=== PATIENT | male | born 1970 | race Caucasian/White ===

== ENCOUNTER 2016-04-22 00:04 | Inpatient (IN) | payer OTHER ==
--- NOTE | 2016-04-22 00:32 | ED ---
Skin/Abscess/FB HPI - General Source: patient, RN notes reviewed Mode of arrival: ambulatory Limitations: no limitations <Maty Alexandre - Last Filed: 04/22/16 03:46> <Tello Lo - Last Filed: 04/22/16 08:50> - General Chief complaint: Skin/Abscess/Foreign Body Stated complaint: wound on hand Time Seen by Provider: 04/22/16 00:12 - History of Present Illness Initial comments: Patient is a 45-year-old male presents emergency room for evaluation of right hand wound infection. Patient states about a month ago he received abrasions over his hand while working on a car. Patient states over the past month the sores were not healing and appeared to become infected. Patient states that he went to [facility] on April 19. Patient states he was given a dose of IV and antibiotic and was sent home with doxycycline. Patient states that he was unable to get his prescription filled and the infection has gotten worse. Patient denies punching anyone in the face. Patient denies numbness or tingling in his fingers. Patient does admit to having a history of diabetes. Patient denies any fevers or chills. Patient denies nausea or vomiting. (Maty Alexandre) - Related Data Home Medications Medication Instructions Recorded Confirmed Atorvastatin [Lipitor] 20 mg PO HS 09/11/15 04/22/16 Gabapentin [Neurontin] 400 mg PO TID 09/11/15 04/22/16 Lisinopril [Zestril] 10 mg PO DAILY 09/11/15 04/22/16 Glimepiride [Amaryl] 4 mg PO BID 04/22/16 04/22/16 Insulin Glargine [Lantus] 20 unit SQ HS 04/22/16 04/22/16 Metoclopramide HCl [Reglan] 5 mg PO TID PRN 04/22/16 04/22/16 Midodrine [ProAmatine] 5 mg PO TID 04/22/16 04/22/16 Omeprazole [PriLOSEC] 40 mg PO DAILY 04/22/16 04/22/16 Sertraline HCl [Sertraline HCl] 200 mg PO DAILY 04/22/16 04/22/16 Venlafaxine HCl [Venlafaxine HCl 150 mg PO -BRKFST 04/22/16 04/22/16 ER] oxyCODONE HCL/ACETAMINOPHEN 1 tab PO Q6HR PRN 04/22/16 04/22/16 [Percocet 7.5-325 mg] Allergies Allergy/AdvReac Type Severity Reaction Status Date / Time lactose AdvReac Diarrhea Verified 04/22/16 00:09 Review of Systems ROS Other: All systems not noted in ROS Statement are negative. <Maty Alexandre - Last Filed: 04/22/16 03:46> ROS Other: All systems not noted in ROS Statement are negative. <Tello Lo - Last Filed: 04/22/16 08:50> ROS Statement: Those systems with pertinent positive or pertinent negative responses have been documented in the HPI. (Maty Alexandre) (Tello Lo) Past Medical History Past Medical History: Diabetes Mellitus, Hypertension History of Any Multi-Drug Resistant Organisms: None Reported Past Surgical History: No Surgical Hx Reported Additional Past Surgical History / Comment(s): Colonscopy Past Psychological History: No Psychological Hx Reported Smoking Status: Never smoker Past Alcohol Use History: None Reported Past Drug Use History: None Reported - Past Family History Mother Family Medical History: Diabetes Mellitus <Maty Alexandre - Last Filed: 04/22/16 03:46> General Exam Limitations: no limitations General appearance: alert, in no apparent distress Head exam: Present: atraumatic, normocephalic, normal inspection Eye exam: Present: normal appearance ENT exam: Present: normal exam Neck exam: Present: normal inspection Respiratory exam: Present: normal lung sounds bilaterally. Absent: respiratory distress Cardiovascular Exam: Present: regular rate, normal rhythm, normal heart sounds Right Hand Wrist exam: Present: full ROM, tenderness, swelling. Absent: normal inspection (Sores of multiple sizes over the MCP joints 2 through 4 with some serous drainage. Surrounding swelling of digits, warmth and tenderness.) Neuro motor exam: Present: wrist extension intact, thumb opposition intact, thumb IP flexion intact, thumb adduction intact, fingers 2-5 abduction intact Vascular: Present: normal capillary refill (Capillary refill less than 2 seconds ), radial pulse (2+), ulnar pulse (2+) Back exam: Present: normal inspection Neurological exam: Present: alert, oriented X3, CN II-XII intact, normal gait Psychiatric exam: Present: normal affect, normal mood Skin exam: Present: warm, dry. Absent: rash <Maty Alexandre - Last Filed: 04/22/16 03:46> <Tello Lo - Last Filed: 04/22/16 08:50> - General Exam Comments Initial Comments: Sitting in exam room, no acute distress. (Maty Alexandre) Medical Decision Making - Lab Data Result diagrams: 04/22/16 00:35 04/22/16 00:35 - Radiology Data Radiology results: report reviewed, image reviewed <Maty Alexandre - Last Filed: 04/22/16 03:46> - Lab Data Result diagrams: 04/22/16 00:35 04/22/16 00:35 <Tello Lo - Last Filed: 04/22/16 08:50> - Medical Decision Making Patient is a 45-year-old male presents emergency room for evaluation infected hand wound. Labs show no concerning findings besides hyperglycemia. Patient given 6 units of insulin. Case discussed with Dr. Lo. Dr. Lo also evaluated patient. Patient will be started on IV antibiotics. Dr. Lo discussed case with Dr. Ch who agreed to admit patient. Plan discussed with patient. (Maty Alexandre) I saw this patient in conjunction with the physician ob gyn physician assistant. I performed independent history and physical exam. Agree with case management. (Tello Lo) - Lab Data Lab Results 04/22/16 04/22/16 Range/Units 00:35 00:35 WBC 6.6 (3.8-10.6) k/uL RBC 4.20 L (4.30-5.90) m/uL Hgb 11.0 L (13.0-17.5) gm/dL Hct 34.5 L (39.0-53.0) % MCV 82.3 (80.0-100.0) fL MCH 26.3 (25.0-35.0) pg MCHC 32.0 (31.0-37.0) g/dL RDW 13.3 (11.5-15.5) % Plt Count 233 (150-450) k/uL Neutrophils % 73 % Lymphocytes % 16 % Monocytes % 7 % Eosinophils % 3 % Basophils % 0 % Neutrophils # 4.8 (1.3-7.7) k/uL Lymphocytes # 1.1 (1.0-4.8) k/uL Monocytes # 0.4 (0-1.0) k/uL Eosinophils # 0.2 (0-0.7) k/uL Basophils # 0.0 (0-0.2) k/uL Sodium 139 (137-145) mmol/L Potassium 4.8 (3.5-5.1) mmol/L Chloride 98 (98-107) mmol/L Carbon Dioxide 27 (22-30) mmol/L Anion Gap 14 mmol/L BUN 22 H (9-20) mg/dL Creatinine 1.10 (0.66-1.25) mg/dL Est GFR (MDRD) Af Amer >60 (>60 ml/min/1.73 sqM) Est GFR (MDRD) Non-Af >60 (>60 ml/min/1.73 sqM) Glucose 419 H (74-99) mg/dL Calcium 9.4 (8.4-10.2) mg/dL Total Bilirubin 0.5 (0.2-1.3) mg/dL AST 15 L (17-59) U/L ALT 34 (21-72) U/L Alkaline Phosphatase 121 (38-126) U/L Total Protein 7.0 (6.3-8.2) g/dL Albumin 4.0 (3.5-5.0) g/dL (Tello Lo) Disposition Decision Date: 04/22/16 <Maty Alexandre - Last Filed: 04/22/16 03:46> <Tello Lo - Last Filed: 04/22/16 08:50> Clinical Impression: Infection of right hand Disposition: ADMITTED IP TO THIS HOSP Condition: Stable
[2016-04-22] MEDS ORDERED: SODIUM CHLORIDE 0.9% 1,000 ML IV ONE (00:45)
[2016-04-22] MEDS ORDERED: IV VANCOMYCIN PER PHARMACY 1 EACH MISC MISCELLANE PRN (00:46)
[2016-04-22 00:58] LABS: Basophils % (A) 0 %; CH 28.1; CHCM 34.4; Eosinophils # (A) 0.2 k/uL (0-0.7); Eosinophils % (A) 3 %; HCT 34.5 % (39.0-53.0); HDW 3.37; Luc # (Auto) 0.07; Luc % (Auto) 1; Lymphocytes # (A) 1.1 k/uL (1.0-4.8); Lymphocytes % (A) 16 %; MCH 26.3 pg (25.0-35.0); MCV 82.3 fL (80.0-100.0); Monocytes # (A) 0.4 k/uL (0-1.0); Monocytes % (A) 7 %; Neutrophils # (A) 4.8 k/uL (1.3-7.7); Neutrophils % (A) 73 %; RDW 13.3 % (11.5-15.5); WBC 6.6 k/uL (3.8-10.6)
--- NOTE | 2016-04-22 01:12 | XR ---
EXAMINATION TYPE: XR hand complete RT DATE OF EXAM: 04/22/2016 1:05 AM COMPARISON: NONE HISTORY: Pain TECHNIQUE: 3 views FINDINGS: I see no fracture nor dislocation. Joint spaces are normal. There is no sign of a foreign b veronica. There is mild soft tissue swelling around the second third and fourth PIP joints. IMPRESSION: Mild soft tissue swelling. No fracture. No evidence of osteomyelitis.
[2016-04-22 01:24] LABS: ALT 34 U/L (21-72); AST 15 U/L (17-59); Alkaline Phosphatase 121 U/L (38-126); Anion Gap 14 mmol/L; Blood Urea Nitrogen 22 mg/dL (9-20); Calcium 9.4 mg/dL (8.4-10.2); Carbon Dioxide 27 mmol/L (22-30); Chloride 98 mmol/L (98-107); Glucose 419 mg/dL (74-99); Non-African American GFR(MDRD) >60 (>60 ml/min/1.73 sqM); Potassium 4.8 mmol/L (3.5-5.1); Sodium 139 mmol/L (137-145); Total Bilirubin 0.5 mg/dL (0.2-1.3)
[2016-04-22] MEDS ORDERED: VANCOMYCIN 1,500 MG in SODIUM CHLORIDE 0.9% 250 ML IVPB STA (01:32)
[2016-04-22] MEDS ORDERED: ONDANSETRON 4 MG/2 ML VIAL IVP PRN (02:07)
[2016-04-22] MEDS ORDERED: IBUPROFEN 400 MG TAB PO PRN (02:07)
[2016-04-22] MEDS ORDERED: NALOXONE 0.4 MG/ML 1 ML VIAL IV PRN (02:07)
[2016-04-22] MEDS ORDERED: MORPHINE SULFATE 4 MG/ML SYRINGE IV PRN (02:07)
[2016-04-22] MEDS ORDERED: INSULIN LISPRO (humaLOG) 300 UNIT/3 ML VIAL SQ STA ×2 (02:24→02:35)
[2016-04-22 02:30] LABS: Glucose,Whole Blood 347 mg/dL (75-99)
[2016-04-22 03:22] VITALS: BMI 31.9
[2016-04-22] MEDS: SODIUM CHLORIDE 0.9% 1,000 ML IV SCH ×3 (03:50→21:45)
[2016-04-22 04:00] LABS: Glucose,Whole Blood 313 mg/dL (75-99)
[2016-04-22 07:41] LABS: Glucose,Whole Blood 306 mg/dL (75-99)
[2016-04-22] MEDS: LISINOPRIL 10 MG TAB PO SCH (07:45)
[2016-04-22] MEDS: GABAPENTIN 400 MG CAP PO SCH ×2 (07:45→19:46)
[2016-04-22] MEDS: INSULIN LISPRO (humaLOG) 300 UNIT/3 ML VIAL SQ SCH ×4 (07:47→20:02)
[2016-04-22] MEDS ORDERED: GABAPENTIN 100 MG CAP PO SCH (09:00)
[2016-04-22] MEDS ORDERED: METOCLOPRAMIDE 5 MG TAB PO PRN (09:48)
[2016-04-22] MEDS ORDERED: HYDROmorphone 1 MG/ML 1 ML SYRINGE IVP PRN ×2 (10:15)
[2016-04-22] MEDS: HYDROcodone/APAP 5-325MG 1 EACH TAB PO PRN (10:16)
--- NOTE | 2016-04-22 11:05 | P.HPOR ---
History of Present Illness H&P Date: 04/22/16 Chief Complaint: Right hand pain, infection Patient is a 45-year-old male seen at bedside today who was admitted last evening after having continued pain, redness, swelling in his right hand. He states that approximately 1 month ago he injured his right hand while working on his 's car. He's had abrasions/lacerations at the dorsum of his hand that have progressively worsened with redness, swelling and pain. He presented to [facility] last 04/19/2016 where he was discharged on oral antibiotics. He states he did not take his oral antibiotics over the weekend. He presented to [facility] last evening and was admitted for IV antibiotics and orthopedic surgical intervention possibly. He' s currently denying fever or chills. He continues to have pain at the dorsum of his right hand. He has pain with closing his hand and opening his hand fully. He denies wrist pain, forearm pain or other proximal upper extremity symptoms. He has been a diabetic for 20 years and has had chronic peripheral neuropathy. He denies any new numbness or tingling. He has no other complaints. Review of systems is negative for fever, chills, chest pain, shortness breath, nausea, vomiting, dizziness, headaches, rashes, slurred speech or other. Review of Systems All systems: negative Constitutional: Denies chills, Denies fever Eyes: denies blurred vision, denies pain Ears, nose, mouth and throat: Denies headache, Denies sore throat Cardiovascular: Denies chest pain, Denies shortness of breath Respiratory: Denies cough Gastrointestinal: Denies abdominal pain, Denies diarrhea, Denies nausea, Denies vomiting Musculoskeletal: Denies myalgias Musculoskeletal: right: hip pain Integumentary: Denies pruritus, Denies rash Neurological: Denies numbness, Denies weakness Psychiatric: Denies anxiety, Denies depression Endocrine: Denies fatigue, Denies weight change Past Medical History Past Medical History: Diabetes Mellitus, Hypertension Additional Past Medical History / Comment(s): neuropathy History of Any Multi-Drug Resistant Organisms: None Reported Past Surgical History: No Surgical Hx Reported Additional Past Surgical History / Comment(s): Colonscopy Past Psychological History: No Psychological Hx Reported Smoking Status: Never smoker Past Alcohol Use History: None Reported Past Drug Use History: None Reported - Past Family History Mother Family Medical History: Diabetes Mellitus Medications and Allergies Home Medications Medication Instructions Recorded Confirmed Type Atorvastatin [Lipitor] 20 mg PO HS 09/11/15 04/22/16 History Amitriptyline HCl [Elavil] 10 mg PO DAILY 04/22/16 04/22/16 History Gabapentin [Neurontin] 400 mg PO TID 04/22/16 04/22/16 History Glimepiride [Amaryl] 4 mg PO BID 04/22/16 04/22/16 History Insulin Glargine [Lantus] 20 unit SQ HS 04/22/16 04/22/16 History Metoclopramide HCl [Reglan] 5 mg PO TID PRN 04/22/16 04/22/16 History Midodrine [ProAmatine] 5 mg PO TID 04/22/16 04/22/16 History Omeprazole [PriLOSEC] 40 mg PO DAILY 04/22/16 04/22/16 History Sertraline HCl [Sertraline HCl] 200 mg PO DAILY 04/22/16 04/22/16 History Venlafaxine HCl [Venlafaxine HCl 150 mg PO AC-BRKFST 04/22/16 04/22/16 History ER] Allergies Allergy/AdvReac Type Severity Reaction Status Date / Time lactose AdvReac Diarrhea Verified 04/22/16 00:09 Physical Examination Inspection of the right hand and upper extremity reveals multiple deep abrasions across the dorsum of the digits and hand. There is significant erythema and edema mostly at the proximal second, third and fourth digits. There is blistering on the dorsum of the second digit. There is no active bleeding or drainage. Full extension of all the digits is limited due to pain. Flexion of the digits is also limited due to pain. There is no pain or decreased range of motion with the wrist where he is able to flex and extend and deviate without difficulty. Normal exam furthermore with the proximal right upper extremity. He has sensation to touch throughout all digits. There is less than 2 second cap refill distally in all digits. There is a 2+ radial pulse. Results - Labs Labs: Abnormal Lab Results - Last 24 Hours (Table) 04/22/16 04/22/16 04/22/16 Range/Units 02:27 03:48 07:38 POC Glucose (mg/dL) 347 H 313 H 306 H (75-99) mg/dL Result Diagrams: 04/22/16 00:35 04/22/16 00:35 - Diagnostic results Wrist/Hand x-ray: report reviewed, image reviewed (No evidence of osteomyelitis or gas formation. No fractures or dislocations.) Assessment and Plan (1) Infection of right hand Narrative/Plan: This patient has been reviewed with Dr. Ch. He has recommended proceeding with surgical I&D. He ate breakfast this morning and will try to perform later this afternoon or tomorrow. It'll be I&D the dorsum of the right hand with local anesthetic and sedation. He'll continue on IV antibiotics. He has been placed nothing by mouth. Internal medicine has seen him and cleared him for surgery. Continue elevation and pain management as well. He'll participate in whirlpool therapy after I&D. Status: Acute Time with Patient: Less than 30
[2016-04-22 11:36] LABS: Glucose,Whole Blood 368 mg/dL (75-99)
[2016-04-22] MEDS: HYDROmorphone 1 MG/ML 1 ML SYRINGE IVP PRN ×3 (12:32→22:12)
[2016-04-22 12:40] LABS: Hemoglobin A1C 8.6 % (4.2-6.1)
[2016-04-22] MEDS: VANCOMYCIN 1,500 MG in SODIUM CHLORIDE 0.9% 250 ML IVPB SCH (14:29)
[2016-04-22] MEDS ORDERED: MIDODRINE 5 MG TAB PO SCH (16:00)
[2016-04-22 16:25] LABS: Glucose,Whole Blood 230 mg/dL (75-99)
[2016-04-22] MEDS ORDERED: IV FLUID CONTINUATION 1,000 ML IV ONE ×2 (16:26)
[2016-04-22] MEDS ORDERED: ceFAZolin 1,000 MG in SODIUM CHLORIDE 0.9% 1,000 ML IRRIGATION ONE ×4 (16:26)
[2016-04-22 17:54] LABS: Glucose,Whole Blood 188 mg/dL (75-99)
[2016-04-22] MEDS ORDERED: SODIUM CHLORIDE 0.9% 500 ML BAG ONE (18:12)
[2016-04-22] MEDS ORDERED: LIDOCAINE 1% INJ 10MG/ML (20 ML MDV) ONE (18:12)
[2016-04-22] MEDS ORDERED: ceFAZolin 1,000 MG VIAL ONE (18:12)
[2016-04-22] MEDS ORDERED: fentaNYL (PF) 50 MCG/ML 2 ML AMP ONE (18:12)
[2016-04-22] MEDS ORDERED: MIDAZOLAM 2 MG/2 ML VIAL ONE (18:12)
[2016-04-22] MEDS ORDERED: PROPOFOL 10 MG/ML 20 ML VIAL IV ONE (18:12)
[2016-04-22] MEDS ORDERED: SODIUM CHLORIDE 0.9% 1,000 ML BAG ONE (18:12)
[2016-04-22] MEDS ORDERED: LIDOCAINE 2% INJ 20 MG/ML SQ ONE ×2 (18:22)
[2016-04-22] MEDS ORDERED: SODIUM CHLORIDE 0.9% 500 ML IV ONE (18:30)
[2016-04-22] MEDS: HYDROmorphone 1 MG/ML 1 ML SYRINGE IVP ONE ×2 (18:44→18:51)
[2016-04-22] MEDS: ATORVASTATIN 20 MG TAB PO SCH (19:46)
[2016-04-22 19:49] LABS: Glucose,Whole Blood 159 mg/dL (75-99)
[2016-04-22] MEDS: GLIMEPIRIDE 4 MG TAB PO SCH (19:50)
[2016-04-22] MEDS: INSULIN GLARGINE 100 UNIT/ML 10 ML VIAL SQ SCH (20:02)
--- NOTE | 2016-04-22 20:53 | CONS ---
DATE OF CONSULTATION: Kimber Wheeler [employer] [facility] dictating for Dr. Reanna Alanis. PRINCIPAL DIAGNOSIS: Right hand infection. HISTORY OF PRESENT ILLNESS: This is a 45-year-old male patient who presented to the emergency department secondary to right hand swelling and pain. The patient states approximately a month ago he injured both of his hands while he was fixing his 's car. He is diabetic and the source appeared to become infected. He originally went to [facility] and was given IV antibiotics and sent home on doxycycline, but was unable to get this prescription filled; therefore he did not take any antibiotics. He is seen sitting up in bed. His pain is under good control. He has been afebrile overnight. He denies any fever or chills at home. He is currently on IV vancomycin. Awaiting orthopedic service evaluation for possible surgery. He is hemodynamically stable. REVIEW OF SYSTEMS: Patient denies seizures, syncope, or loss of consciousness. Denies diplopia or visual disturbances. Denies dysphagia. Denies shortness breath, cough or wheeze. Denies chest pain, angina, palpitations. Denies abdominal pain, nausea, vomiting, constipation, or diarrhea. Denies dysuria or urinary retention. Denies fever or chills. PAST MEDICAL HISTORY: Diabetes, hypotension, peripheral neuropathy, hyperlipidemia, depression, chronic anemia. PAST SURGICAL HISTORY: Colonoscopy. FAMILY HISTORY: Parents of patient are both living, one with hypertension and diabetes. SOCIAL HISTORY: The patient is a nonsmoker. Denies EtOH or illicit drug use. ALLERGIES: LACTOSE INTOLERANCE. HOME MEDICATIONS: 1. Sertraline 200 mg daily. 2. Prilosec 40 mg daily. 3. Midodrine 5 mg t.i.d. 4. Reglan 5 mg t.i.d. p.r.n. 5. Lantus 20 units at bedtime. 6. Amaryl 4 mg b.i.d. 7. Neurontin 400 mg t.i.d. 8. Lipitor 20 mg at bedtime. 9. Elavil 10 mg daily. 10. Effexor 150 mg a.c. breakfast. PHYSICAL EXAMINATION: Temperature is 97.6, heart rate 84, respiratory 16, blood pressure is 145/84, pulse oximetry is 94% on room air. GENERAL: The patient is seen sitting up in bed in no acute distress. HEENT: Head is normocephalic, atraumatic. Pupils equal. Conjunctivae clear. NECK: Supple, no JVD. LUNGS: Clear to auscultation. No wheeze, rales, rhonchi appreciated. HEART: Regular rate and rhythm. No murmur. ABDOMEN: Soft, nontender, nondistended. Bowel sounds positive. EXTREMITIES: Right hand 2+ edema with multiple sores and pustules is noted. Right radial pulse is palpable. Left hand without edema but 3 sores that are scabbed over. Left radial pulse is palpable. No lower extremity edema is noted. Pedal pulses are palpable. NEUROLOGICAL: The patient is alert and oriented x3. Speech is clear, interactive and appropriate. No tremors noted. LABS: Sodium is 139, potassium 4.8, BUN is 22, creatinine is 1.10. WBC count 6.6, hemoglobin is 11.0, platelet count is 233. Capillary blood glucose is 306. DIAGNOSTIC TESTS: Hand x-ray shows mild soft tissue swelling. No fracture. No evidence of osteomyelitis. IMPRESSION: 1. Right hand infection with abscess formation. Orthopedic Service is planning on incision and drainage this morning. Will obtain deep cultures at that time. Continue with vancomycin; pharmacy to dose. Infectious Disease consultation has been placed. Continue with [place] and Dilaudid as needed for pain control. 2. Diabetes, uncontrolled. The patient is unaware what his hemoglobin A1c is although he states it is probably high. He states he has been taking his medication at home. Will continue with Amaryl and Lantus and Accu-Cheks a.c. and at bedtime with sliding scale coverage. We will hold the Amaryl this morning prior to surgery. 3. Hypotension. Continue with midodrine t.i.d. We will decrease lisinopril to 2.5 mg. Unsure of why he is on that high of a dose. 4. Chronic anemia. The patient has had normal colonoscopy in the past and states that he has been told he has chronic anemia. 5. Hyperlipidemia. Continue with atorvastatin. 6. Depression. Continue with sertraline and Elavil. The patient states he is not taking Effexor anymore. This has been discontinued. 7. Gastrointestinal prophylaxis with Protonix. 8. Deep venous thrombosis prophylaxis with subcutaneous heparin. 9. The patient will be admitted to inpatient status with probable 2 to 3 night today.
[2016-04-23] MEDS: GABAPENTIN 400 MG CAP PO SCH ×4 (00:55→19:42)
[2016-04-23] MEDS: HYDROmorphone 1 MG/ML 1 ML SYRINGE IVP PRN (00:55)
[2016-04-23] MEDS: VANCOMYCIN 1,500 MG in SODIUM CHLORIDE 0.9% 250 ML IVPB SCH ×2 (00:56→12:53)
[2016-04-23 02:42] VITALS: RESP 16
[2016-04-23] MEDS: LISINOPRIL 10 MG TAB PO SCH (07:06)
[2016-04-23] MEDS: GLIMEPIRIDE 4 MG TAB PO SCH ×2 (07:07→17:48)
[2016-04-23 07:13] LABS: Glucose,Whole Blood 184 mg/dL (75-99)
[2016-04-23] MEDS: INSULIN LISPRO (humaLOG) 300 UNIT/3 ML VIAL SQ SCH ×4 (07:15→21:04)
[2016-04-23 07:56] LABS: Basophils % (A) 1 %; CH 27.4; CHCM 34.1; Eosinophils # (A) 0.3 k/uL (0-0.7); Eosinophils % (A) 5 %; HCT 30.5 % (39.0-53.0); HDW 3.51; Luc # (Auto) 0.11; Luc % (Auto) 2; Lymphocytes # (A) 0.9 k/uL (1.0-4.8); Lymphocytes % (A) 17 %; MCH 26.5 pg (25.0-35.0); MCHC 32.7 g/dL (31.0-37.0); MCV 80.9 fL (80.0-100.0); Mean Platelet Volume 7.3; Monocytes # (A) 0.3 k/uL (0-1.0); Monocytes % (A) 7 %; Neutrophils # (A) 3.5 k/uL (1.3-7.7); Neutrophils % (A) 69 %; Poikilocytosis Slight; RBC 3.77 m/uL (4.30-5.90); WBC 5.1 k/uL (3.8-10.6); WBC (Perox) 5.34
--- NOTE | 2016-04-23 07:57 | CONS ---
DATE OF CONSULTATION: 04/22/2016 Reason for consultation is right hand abscess and cellulitis. HISTORY OF PRESENT ILLNESS: The patient is a 45-year-old male presenting to the ER with chief complaints of pain, swelling and redness to the dorsum of his right hand that has been going on for more than a week now and the patient has been evaluated for the same problem at [facility] on April 19 where the patient was given IV antibiotics and was discharged home on doxycycline. The pharmacy was unable to fill his prescription as they were out of stock. The patient is now presenting with more swelling and redness of the dorsum of his right hand. The patient has been complaining of some throbbing pain 6-10/28. Patient did have some drainage from it but denies any high-grade fever. Subsequently, the patient has been evaluated by the ER physician. The patient did have x-rays of his right hand which shows mild soft tissue swelling. No fracture or evidence of osteomyelitis. Has been evaluated by Orthopedic who is planning for an I&D this evening. The patient did have blood culture which his currently pending, no local cultures; however, I was asked to see the patient for further recommendation regarding antibiotic therapy. Patient currently being on vancomycin. REVIEW OF SYSTEMS: CONSTITUTIONAL: Positive for weakness. No high-grade fever. EYES: No complaint. ENT: No complaint. RESPIRATORY: No complaint. CARDIOVASCULAR: No complaint. GENITOURINARY: No complaint. GASTROINTESTINAL: No complaint. MUSCULOSKELETAL: As per HPI. INTEGUMENT: As per HPI. PSYCHOLOGICAL: No complaint. ENDOCRINE: No complaint. NEUROLOGICAL: No complaint. PAST MEDICAL HISTORY: Hypertension, diabetes mellitus. PAST SURGICAL HISTORY: Colonoscopy. SOCIAL HISTORY: No history of smoking, drinking or drug use. FAMILY HISTORY: Mother with history of diabetes mellitus. Allergies to LACTOSE: Medications currently include the patient is on [place], Lipitor, Neurontin, Amaryl, Dilaudid, Motrin, Lantus, Humalog, Zestril, Reglan, vancomycin currently 1500 q.12 so far. On examination, blood pressure is 140/84 with a pulse of 82, temperature 97.2, temperature is 97.2, he is 91% on room air. General description is a middle-age male, lying in bed in no distress. No tachypnea or accessory muscle for respiration use. HEENT examination shows no pallor or scleral icterus. Oral mucous membrane dry. NECK: Trachea central. There is no thyromegaly. LUNGS: Unlabored breathing. Clear to auscultation anteriorly. No wheeze or crackle. HEART: S1, S2 with regular rate and rhythm. ABDOMEN: Soft, nontender. EXTREMITIES: No edema of the feet. Examination of left hand, dorsum, full examination of right hand on the dorsum, he did have swelling and redness with a blister on the dorsum of his second finger, no purulent drainage was noticed or any fluctuation. NEUROLOGICAL: Patient awake, alert, oriented x3. Mood and affect normal. LABS: Hemoglobin is 11, white count 6.6 with a BUN of 22, creatinine 1.10. Electrolyte has been normal. Liver enzymes are normal, blood culture obtained and currently pending. DIAGNOSTIC IMPRESSION AND PLAN: Patient with right hand cellulitis, started after the patient was working on his 's car with some laceration, more likely from a gram positive skin lisa, especially strep and staph, will need to cover for MRSA until the cultures are finalized. PLAN: 1. Await the surgical I&D and deep cultures which should be sent for both gram stain as well as culture. 2. Vancomycin, pharmacy to dose with a target trough of 15. 3. Will follow up with clinical condition and cultures to further adjust the medication if needed. Thank you for this consultation. Will follow this patient along with you. DESIREE
[2016-04-23 08:22] LABS: ALT 31 U/L (21-72); AST 14 U/L (17-59); Alkaline Phosphatase 113 U/L (38-126); Anion Gap 11 mmol/L; Blood Urea Nitrogen 17 mg/dL (9-20); Calcium 8.8 mg/dL (8.4-10.2); Carbon Dioxide 28 mmol/L (22-30); Chloride 104 mmol/L (98-107); Glucose 207 mg/dL (74-99); Non-African American GFR(MDRD) >60 (>60 ml/min/1.73 sqM); Potassium 4.7 mmol/L (3.5-5.1); Sodium 143 mmol/L (137-145); Total Bilirubin 0.3 mg/dL (0.2-1.3); Total Protein 6.5 g/dL (6.3-8.2)
[2016-04-23] MEDS: HYDROcodone/APAP 5-325MG 1 EACH TAB PO PRN ×2 (08:24→12:50)
[2016-04-23] MEDS ORDERED: AMITRIPTYLINE HCL 10 MG TAB PO SCH (09:00)
--- NOTE | 2016-04-23 09:17 | P.PN ---
Subjective Principal diagnosis: Right hand infection Patient is postop day #1 from I&D of right hand infection. He has no new complaints today. He has pain at the surgical site and right hand as expected. He's currently denying fever, chills, numbness or tingling. Review of systems negative for chest pain, shortness breath, calf pain, dizziness, headaches, slurred speech or other. Objective - Vital Signs Vital signs: Vital Signs Temp 97.7 F 04/23/16 07:25 Pulse 83 04/23/16 07:25 Resp 16 04/23/16 07:25 BP 159/104 04/23/16 07:25 Pulse Ox 97 04/23/16 07:25 Intake & Output 04/22/16 04/23/16 04/23/16 18:59 06:59 18:59 Intake Total 1051 300 360 Output Total 10 Balance 1041 300 360 Intake: IV 1051 300 Sodium Chloride 0.9% 1, 600 300 000 ml @ 75 mls/hr IV . [id number] KERVIN Rx#:[id number] Oral 360 Output: Estimated Blood Loss 10 Other: # Voids 1 - Exam Inspection of the right upper extremity reveals postop surgical bandage in place. There is no progressive erythema. No active bleeding bleeding or purulent drainage. Painless range of motion of the wrist, elbow and proximal upper extremity. Motor and sensation intact throughout the right upper extremity. 2+ radial pulse present and less than 2 second cap refill. - Constitutional General appearance: Present: no acute distress - Psychiatric Psychiatric: Present: A&O x's 3, appropriate affect, intact judgment & insight - Labs CBC & Chem 7: 04/23/16 07:21 04/23/16 07:18 Labs: Abnormal Lab Results - Last 24 Hours (Table) 04/22/16 04/22/16 04/22/16 Range/Units 11:31 16:24 17:51 RBC (4.30-5.90) m/uL Hgb (13.0-17.5) gm/dL Hct (39.0-53.0) % Lymphocytes # (1.0-4.8) k/uL Glucose (74-99) mg/dL POC Glucose (mg/dL) 368 H 230 H 188 H (75-99) mg/dL AST (17-59) U/L Albumin (3.5-5.0) g/dL 04/22/16 04/23/16 04/23/16 Range/Units 19:47 07:12 07:18 RBC (4.30-5.90) m/uL Hgb (13.0-17.5) gm/dL Hct (39.0-53.0) % Lymphocytes # (1.0-4.8) k/uL Glucose 207 H (74-99) mg/dL POC Glucose (mg/dL) 159 H 184 H (75-99) mg/dL AST 14 L (17-59) U/L Albumin 3.4 L (3.5-5.0) g/dL 04/23/16 Range/Units 07:21 RBC 3.77 L (4.30-5.90) m/uL Hgb 10.0 L (13.0-17.5) gm/dL Hct 30.5 L (39.0-53.0) % Lymphocytes # 0.9 L (1.0-4.8) k/uL Glucose (74-99) mg/dL POC Glucose (mg/dL) (75-99) mg/dL AST (17-59) U/L Albumin (3.5-5.0) g/dL Microbiology - Last 24 Hours (Table) 04/22/16 18:24 Gram Stain - Preliminary Hand - Right Wound Culture - Preliminary 04/22/16 18:24 Anaerobic Culture - Preliminary Hand - Right Assessment and Plan (1) Infection of right hand Narrative/Plan: He's postop day 1 from I&D of the right hand. He'll continue with wound care, pain management, elevation of the right upper extremity and IV antibiotics. Order also been placed for daily whirlpool treatments. We'll continue to monitor. Status: Acute Time with Patient: Less than 30
[2016-04-23 11:35] LABS: Glucose,Whole Blood 308 mg/dL (75-99)
[2016-04-23] MEDS ORDERED: VANCOMYCIN TROUGH DUE 1 EACH MISC MISCELLANE ONE (13:00)
--- NOTE | 2016-04-23 13:04 | OP ---
DATE OF SERVICE: April 22, 2016. SURGEON: LEXI YOO MD HEARING CARE PRACTITIONER: PREOPERATIVE DIAGNOSIS: Right dorsal hand infection. POSTOPERATIVE DIAGNOSIS: Dorsal hand infection, deep abscess dorsum of right hand. OPERATION: Incision and drainage, right the dorsal hand abscess. ANESTHESIA: Conscious sedation with local. SPECIMENS REMOVED: COMPLICATIONS: ESTIMATED BLOOD LOSS: 5 mL. Tourniquet: None. DRAINS: None. Complications: None apparent. DISPOSITION: Postanesthesia care unit. INDICATIONS: Ravinder is a 45-year-old male who fell onto his right hand several days ago. Apparently on April 19, he presented to an outside emergency department. He had worrisome for infection. Apparently he was given a dose of IV antibiotics and script for oral antibiotics. He admittedly did not fill the script for oral antibiotics. His hand infection seemed to be worsening and he presented to [facility] early in the morning today with worsening of his right hand infection. He was admitted to the floor. He was placed on IV vancomycin. He did have a subcutaneous abscess in the dorsum of his right hand. Recommendation was for incision and drainage of his dorsal hand infection. The risks were explained to the patient. These risks include, but are not limited to risk of continued infection, nerve damage, bleeding, pain, stiffness in the hand. All of his questions with regards to the risks were answered to his satisfaction and appropriate informed consent was obtained. DESCRIPTION OF THE PROCEDURE: The patient was identified in the preoperative holding area. Surgical site was marked by both patient and myself. He was then transferred to the operative suite and was placed supine on the operating room table. Conscious sedation was then administered and dosed by the anesthesia department without apparent complication. Patient's right upper extremity was then prepped and draped in the usual sterile fashion. Standard surgical pause was then undertaken to ensure that we were operating on the correct site and that all staff in the room were in agreement and we proceeded. Right hand was placed out onto the hand table. On inspection he did have scrapes just over the MCP joints of the index, middle and ring finger. Deep infection was just proximal to the MCP joint of the right index finger just distal to the MCP joint of the right ring finger. Attention was first drawn to the index finger, the overlying tissue over the abscess was incised with 15 blade scalpel. The incision was 5 mm. Immediately purulent material was expressed through the incision. Deep culture was then taken and sent for analysis. Hemostat was then utilized to bluntly dissect and break up all of the abscess. Attention was turned to the abscess on the dorsum of the ring finger. Again, the skin just over the overlying the abscess was incised with a 15 blade scalpel. Again, purulent material was immediately encountered. Blunt dissection was then carried out with hemostat. Both wounds were then thoroughly irrigated with sterile saline solution with antibiotic added. The abscess was completely drained. I then placed iodoform gauze in both incisions. This was packed to keep the space opened. Sterile dressings were then applied. All sponge and needle counts were deemed correct prior to closure. Patient tolerated the procedure without apparent complication. He was transferred to recovery room in stable condition. Postoperative plan: Will be for him to be readmitted to the floor. We will monitor the cultures. Continue with vancomycin. We will start him on whirlpool therapy tomorrow morning.
[2016-04-23 16:55] LABS: Glucose,Whole Blood 271 mg/dL (75-99)
[2016-04-23] MEDS: ATORVASTATIN 20 MG TAB PO SCH (19:42)
[2016-04-23] MEDS: INSULIN GLARGINE 100 UNIT/ML 10 ML VIAL SQ SCH (21:04)
[2016-04-23 21:06] LABS: Glucose,Whole Blood 259 mg/dL (75-99)
[2016-04-23] MEDS: SODIUM CHLORIDE 0.9% 1,000 ML IV SCH (22:16)
--- NOTE | 2016-04-23 23:45 | PN ---
DATE OF SERVICE: 04/23/2016 REASON FOR FOLLOWUP: Right hand abscess and cellulitis. INTERVAL HISTORY: The patient is afebrile. The patient is status post I&D of his right hand abscess by Orthopedics. The patient denies any worsening pain in the right hand area. The patient denies having any chest pain or shortness of breath or cough. No abdominal pain or diarrhea. On examination, blood pressure is 116/73 with a pulse of 85, temperature 98.1. He is 95% on room air. General description is a middle-aged male lying in bed in no distress. RESPIRATORY SYSTEM: Unlabored breathing. Clear to auscultation anteriorly. HEART: S1, S2. Regular rate and rhythm. ABDOMEN: Soft. No tenderness. Right hand dorsum overall swelling and redness have improved. Wound was packed. No drainage. LABS: Hemoglobin is 10, white count 5.1. BUN of 17, creatinine 0.93. Cultures are currently pending. DIAGNOSTIC IMPRESSION AND PLAN: Patient with right hand abscess, status post drainage. Culture is positive for Gram-positive cocci, more likely Staphylococcus aureus. Will wait for the culture to finalize to determine the best treatment or discharge antibiotic for him. Continue local wound care as ordered. Plan of care discussed with the medical team.
[2016-04-24] MEDS: VANCOMYCIN 1,500 MG in SODIUM CHLORIDE 0.9% 250 ML IVPB SCH ×2 (00:55→14:48)
[2016-04-24 06:56] LABS: Glucose,Whole Blood 392 mg/dL (75-99)
[2016-04-24] MEDS: INSULIN LISPRO (humaLOG) 300 UNIT/3 ML VIAL SQ SCH ×4 (07:36→21:42)
[2016-04-24] MEDS: GLIMEPIRIDE 4 MG TAB PO SCH ×2 (07:37→18:02)
--- NOTE | 2016-04-24 07:57 | PN ---
INTERVAL HISTORY: Patient underwent I&D this morning by Surgery, currently seems to be improved. Hand is wrapped without any ( ) drainage. Patient states the pain is under control. Patient denies chest pain, shortness of breath, vomiting, abdominal pain. Denies any blurred vision. PHYSICAL EXAMINATION: VITAL SIGNS: Reviewed and stable. HEART: Normal S1, S2. ABDOMEN: Soft, no tenderness, bowel sounds to all four quadrants. LOWER EXTREMITY: No edema. SKIN: No new rash. Right hand as above. IMAGING AND LABS: Reviewed and stable. ASSESSMENT AND PLAN: 1. Right hand cellulitis with abscess formation, post I&D. Will continue IV antibiotics. Will continue wound care. Will follow up on the culture results and on the surgical consult. We will follow up with Surgery recommendation regarding possible need of another wash and another evaluation. 2. Tobacco dependency, counseled patient regarding smoking cessation. 3. Elevated blood pressure, will continue monitoring and consider adjusting blood pressure regimen based on the reading. 4. Discharge planning based on clinical progress.
--- NOTE | 2016-04-24 08:59 | P.PN ---
Subjective Principal diagnosis: Right hand infection Patient is postop day #2 from I&D of right hand infection. He has no new complaints today. He has pain at the surgical site and right hand as expected but it is improved. He's currently denying fever, chills, numbness or tingling. Review of systems negative for chest pain, shortness breath, calf pain, dizziness, headaches, slurred speech or other. Objective - Vital Signs Vital signs: Vital Signs Temp 98.3 F 04/24/16 03:37 Pulse 74 04/24/16 07:32 Resp 16 04/24/16 07:32 BP 136/79 04/24/16 07:32 Pulse Ox 91 L 04/24/16 07:32 Intake & Output 04/23/16 04/24/16 04/24/16 18:59 06:59 18:59 Intake Total 960 1325 Balance 960 1325 Weight 95.254 kg Intake: IV 675 Sodium Chloride 0.9% 1, 675 000 ml @ 75 mls/hr IV . [id number] [facility] Rx#:[id number] Intake, IV Titration 250 Amount Vancomycin 1,500 mg In 250 Sodium Chloride 0.9% 250 ml @ 125 mls/hr IVPB Q12H [facility] Rx#:[id number] Oral 960 400 Other: Voiding Method Toilet # Voids 1 2 - Exam Inspection of the right upper extremity reveals postop surgical bandage in place. Bandage taken down and there is packing in place at the dorsum of the second through fourth digits. Erythema and edema is improved versus preop. No active bleeding bleeding or purulent drainage. Painless range of motion of the wrist, elbow and proximal upper extremity. Motor and sensation intact throughout the right upper extremity. 2+ radial pulse present and less than 2 second cap refill. - Constitutional General appearance: Present: no acute distress - Psychiatric Psychiatric: Present: A&O x's 3, appropriate affect, intact judgment & insight - Labs CBC & Chem 7: 04/23/16 07:21 04/23/16 07:18 Labs: Abnormal Lab Results - Last 24 Hours (Table) 04/23/16 04/23/16 04/23/16 Range/Units 11:33 16:50 20:55 POC Glucose (mg/dL) 308 H 271 H 259 H (75-99) mg/dL 04/24/16 Range/Units 06:54 POC Glucose (mg/dL) 392 H (75-99) mg/dL Microbiology - Last 24 Hours (Table) 04/22/16 18:24 Gram Stain - Preliminary Hand - Right Wound Culture - Preliminary Presumptive MRSA Assessment and Plan (1) Infection of right hand Narrative/Plan: He's postop day 2 from I&D of the right hand. He'll continue with wound care, whirlpool treatment for hand, pain management, elevation of the right upper extremity and IV antibiotics. We'll continue to monitor. Possibly discharge home tomorrow. Status: Acute Time with Patient: Less than 30
[2016-04-24] MEDS: LISINOPRIL 10 MG TAB PO SCH (09:28)
[2016-04-24] MEDS: GABAPENTIN 400 MG CAP PO SCH ×3 (09:28→21:42)
[2016-04-24] MEDS: HYDROcodone/APAP 5-325MG 1 EACH TAB PO PRN ×2 (09:37→14:42)
[2016-04-24 11:06] LABS: Glucose,Whole Blood 242 mg/dL (75-99)
[2016-04-24 14:53] LABS: Glucose,Whole Blood 287 mg/dL (75-99)
[2016-04-24 17:01] LABS: Glucose,Whole Blood 260 mg/dL (75-99)
--- NOTE | 2016-04-24 19:12 | PN ---
DATE OF SERVICE: 04/24/2016 Reason for follow-up is right hand abscess and cellulitis. INTERVAL HISTORY: The patient is afebrile. Overall pain to the right hand is currently controlled. He did not go for the walk with therapy today. The patient denies having any chest pain or shortness of breath or cough. No abdominal pain or any diarrhea. On examination, blood pressure is 136/79 with a pulse of 74, temperature 97.5. He is 91% on room air. General description is a middle-aged male lying in bed in no distress. RESPIRATORY SYSTEM: Unlabored breathing. Clear to auscultation anteriorly. HEART: S1, S2 with regular rate and rhythm. ABDOMEN: Soft, no tenderness. Right hand now dressed up, no drainage on the dressing. LABS: Hemoglobin is 10, white count 5.1 as of yesterday, BUN of 17, creatinine 0.93, Vanco level is therapeutic. Wound culture showing a staph presumably MRSA. DIAGNOSTIC IMPRESSION AND PLAN: Patient with right hand methicillin-resistant Staphylococcus aureus abscess, status post drainage. Patient to continue with vancomycin for another 24 hours while waiting for the sensitivity on this methicillin-resistant Staphylococcus aureus to determine discharge antibiotics. Continue supportive care.
[2016-04-24 20:41] LABS: Glucose,Whole Blood 149 mg/dL (75-99)
[2016-04-24] MEDS: INSULIN GLARGINE 100 UNIT/ML 10 ML VIAL SQ SCH (21:42)
[2016-04-24] MEDS: ATORVASTATIN 20 MG TAB PO SCH (21:42)
--- NOTE | 2016-04-24 21:48 | PN ---
INTERVAL HISTORY: The patient continued to be ( ). Overnight, no major events reported by nursing staff. The patient was very emotional and frustrated that his early wound culture is showing MRSA infection. PHYSICAL EXAMINATION: VITAL SIGNS: Reviewed. LUNGS: Clear to auscultation bilaterally. HEART: S1 and S2. ABDOMEN: Soft. No tenderness. Bowel sounds in all 4 quadrants. RIGHT HAND: Dressing applied, intact and dry. SKIN: No new rash. PSYCH: Alert and oriented x3. NEURO: No focal deficit. IMAGING AND LABS: Culture is showing presumptive MRSA infection. ASSESSMENT AND PLAN: 1. Right hand cellulitis, status post I and D. Surgery evaluated the patient, recommended continuation of IV antibiotics until the final culture result is revealed. Will continue with wound care, continue with antibiotics, continue monitoring his electrolyte panel and CBC on periodic basis. ( ) isolation for methicillin-resistant Staphylococcus aureus infection discussed with the nursing staff. 2. Tobacco dependency. Counseled the patient regarding smoking cessation. 3. Discharge planning based on clinical progress.
[2016-04-24] MEDS: SODIUM CHLORIDE 0.9% 1,000 ML IV SCH ×2 (21:54→21:57)
[2016-04-25] MEDS: VANCOMYCIN 1,500 MG in SODIUM CHLORIDE 0.9% 250 ML IVPB SCH (01:14)
[2016-04-25 07:09] LABS: Glucose,Whole Blood 166 mg/dL (75-99)
[2016-04-25 07:37] LABS: Anion Gap 11 mmol/L; Blood Urea Nitrogen 17 mg/dL (9-20); Calcium 8.8 mg/dL (8.4-10.2); Carbon Dioxide 31 mmol/L (22-30); Chloride 103 mmol/L (98-107); Glucose 181 mg/dL (74-99); Non-African American GFR(MDRD) >60 (>60 ml/min/1.73 sqM); Potassium 4.2 mmol/L (3.5-5.1); Sodium 145 mmol/L (137-145)
[2016-04-25 08:01] VITALS: BP 160/97; PULSE 74; TEMP 98.1
[2016-04-25] MEDS: GABAPENTIN 400 MG CAP PO SCH (08:28)
[2016-04-25] MEDS: INSULIN LISPRO (humaLOG) 300 UNIT/3 ML VIAL SQ SCH (08:28)
[2016-04-25] MEDS: GLIMEPIRIDE 4 MG TAB PO SCH (08:29)
[2016-04-25] MEDS: LISINOPRIL 10 MG TAB PO SCH (08:29)
--- NOTE | 2016-04-25 10:04 | P.PN ---
Subjective Principal diagnosis: Right hand infection Patient is postop day #3 from I&D of right hand infection. He has no new complaints today. He has pain at the surgical site and right hand as expected but it is improved. Cultures have come back positive for MRSA. He's currently denying fever, chills, numbness or tingling. Review of systems negative for chest pain, shortness breath, calf pain, dizziness, headaches, slurred speech or other. Objective - Vital Signs Vital signs: Vital Signs Temp 98.1 F 04/25/16 07:00 Pulse 74 04/25/16 08:00 Resp 16 04/25/16 08:00 BP 160/97 04/25/16 07:00 Pulse Ox 99 04/25/16 07:00 Intake & Output 04/24/16 04/25/16 04/25/16 18:59 06:59 18:59 Intake Total 500 1350 240 Balance 500 1350 240 Intake: IV 500 750 Sodium Chloride 0.9% 1, 500 750 000 ml @ 75 mls/hr IV . [id number] [facility] Rx#:[id number] Oral 600 240 Other: Voiding Method Toilet Toilet - Exam Inspection of the right upper extremity reveals postop surgical bandage in place. Bandage taken down and there is packing in place at the dorsum of the second through fourth digits. Erythema and edema is improved versus preop. No active bleeding bleeding or purulent drainage. Painless range of motion of the wrist, elbow and proximal upper extremity. Motor and sensation intact throughout the right upper extremity. 2+ radial pulse present and less than 2 second cap refill. - Constitutional General appearance: Present: no acute distress - Psychiatric Psychiatric: Present: A&O x's 3, appropriate affect, intact judgment & insight - Labs CBC & Chem 7: 04/23/16 07:21 04/25/16 06:52 Labs: Abnormal Lab Results - Last 24 Hours (Table) 04/24/16 04/24/16 04/24/16 Range/Units 11:02 14:38 16:58 Carbon Dioxide (22-30) mmol/L Glucose (74-99) mg/dL POC Glucose (mg/dL) 242 H 287 H 260 H (75-99) mg/dL 04/24/16 04/25/16 04/25/16 Range/Units 20:37 06:52 07:07 Carbon Dioxide 31 H (22-30) mmol/L Glucose 181 H (74-99) mg/dL POC Glucose (mg/dL) 149 H 166 H (75-99) mg/dL Microbiology - Last 24 Hours (Table) 04/22/16 18:24 Anaerobic Culture - Preliminary Hand - Right 04/22/16 18:24 Gram Stain - Final Hand - Right Wound Culture - Final Methicillin resist S. aureus Assessment and Plan (1) Infection of right hand Narrative/Plan: He's postop day 3 from I&D of the right hand.Cultures came back with positive MRSA. Sensitivity report is available and will wait on Infectious disease recommendation for discharge antibiotic choice. He'll continue with wound care , whirlpool, pain management, elevation of the right upper extremity and IV Vancomycin. Possible d/c to home today after whirlpool. Status: Acute Time with Patient: Less than 30
[2016-04-25 11:26] LABS: Glucose,Whole Blood 111 mg/dL (75-99)
--- NOTE | 2016-04-26 08:07 | PN ---
DATE OF SERVICE: 04/25/2016 Reason for followup is right hand MRSA, abscess and cellulitis. INTERVAL HISTORY: The patient was seen on rounds earlier this afternoon in the [facility], [facility] Patient overall pain and swelling and redness to the right hand has improved. No significant drainage. Patient denies having any chest pain, shortness of breath or cough. No abdominal pain or any diarrhea. On examination, blood pressure is 160/97 with the pulse of 74, temperature 98.1. He is 99% on room air. General description is a middle-age male up in the chair in no distress. RESPIRATORY SYSTEM: Unlabored breathing. Clear to auscultation anteriorly. HEART: S1, S2, regular rate and rhythm. ABDOMEN: Soft, no tenderness. Right hand overall swelling and tenderness has improved. No significant drainage was noticed. LABS: Wound culture finalized with MRSA. His creatinine is 1.11. Potassium 4.2. Blood culture has been negative. DIAGNOSTIC IMPRESSION AND PLAN: Patient with right hand methicillin-resistant Staphylococcus aureus abscess, status post drainage. The patient has received about 4 days of IV vancomycin therapy. Overall swelling and redness has improved. Plan at this time will be to switch him over to Bactrim DS one twice a day for 2 weeks with close outpatient followup. Scripts were written for the patient. His questions and concerns were answered.
--- NOTE | 2016-04-27 08:47 | DS ---
DATE OF ADMISSION: 04/22/2016 DATE OF DISCHARGE: 04/25/2016 ADMITTING DIAGNOSES: 1. Right hand injury with cellulitis and abscess. 2. Diabetes. 3. Anxiety. 4. Depression. 5. Hyperlipidemia. FINAL DIAGNOSES: 1. Right hand injury with cellulitis and abscess. 2. Diabetes. 3. Anxiety. 4. Depression. 5. Hyperlipidemia. PROCEDURE: I&D by General Surgery for the right arm. HOSPITAL COURSE: Ravinder Orellana presented to the hospital with right hand pain, swelling and abscess formation after hand injury during work. The patient was evaluated by General Surgery, who felt that the patient would benefit from I&D. Patient tolerated procedure well. Surgical consult was obtained. Following up on the surgical consult revealed MRSA, which was sensitive to clindamycin and patient received vancomycin during his hospital stay. Patient had significant improvement, so was evaluated by Surgery who felt that the patient can go home per Infectious Disease recommendations. Dr. Mayberry evaluated the patient and patient was discharged in stable condition to continue current wound care recommendation and follow up with the surgeon on the scheduled appointment and with his primary care physician within one week. Patient was discharged in stable condition.
== END 2016-04-25 17:40 | disposition home or self-care (01) | DRG 603 ==
LOC: EC 00:04 → 3SUR 02:08
PROVIDERS: ADMIT Orthopaedic Surgery Sports Medicine; ATTEND Orthopaedic Surgery Sports Medicine
PROC: 0H9FXZZ Drainage of Right Hand Skin, External Approach (ICD-10-PCS; principal; 2016-04-22 16:02)
DX: L03.113 Cellulitis of right upper limb (principal); E11.42 Type 2 diabetes mellitus with diabetic polyneuropathy; E11.65 Type 2 diabetes mellitus with hyperglycemia; D64.9 Anemia, unspecified; I10 Essential (primary) hypertension; S61.411A Laceration without foreign body of right hand, initial encounter; L02.511 Cutaneous abscess of right hand; T36.4X6A Underdosing of tetracyclines, initial encounter; B95.62 Methicillin resistant Staphylococcus aureus infection as the cause of diseases classified elsewhere; E78.5 Hyperlipidemia, unspecified; F32.9 Major depressive disorder, single episode, unspecified; F41.9 Anxiety disorder, unspecified; Z79.4 Long term (current) use of insulin; Z83.3 Family history of diabetes mellitus; Z82.49 Family history of ischemic heart disease and other diseases of the circulatory system; Z91.011 Allergy to milk products; Z79.899 Other long term (current) drug therapy; W45.8XXA Other foreign body or object entering through skin, initial encounter; Y92.9 Unspecified place or not applicable
CPT/HCPCS: 36415; 80048; 80053; 80202; 83036; 85025; 87040; 87070; 87075; 87077; 87186; 87205; 96361; 96365; 99285

== ENCOUNTER 2016-09-04 10:53 | Emergency (ER) | payer OTHER ==
[2016-09-04 10:58] VITALS: TEMP 97.3
[2016-09-04] MEDS ORDERED: ONDANSETRON 4 MG/2 ML VIAL IVP STA (14:04)
[2016-09-04] MEDS ORDERED: SODIUM CHLORIDE 0.9% 1,000 ML IV STA (14:04)
[2016-09-04] MEDS ORDERED: DIPHENOX-ATROP 2.5-0.025 MG 1 EACH TAB PO STA (14:04)
[2016-09-04] MEDS ORDERED: SODIUM CHLORIDE 0.9% 500 ML IV STA (14:04)
--- NOTE | 2016-09-04 14:09 | ED ---
General Adult HPI - General Chief complaint: Nausea/Vomiting/Diarrhea Stated complaint: POSS DEHYDRATION, SENT BY Time Seen by Provider: 09/04/16 13:40 Source: patient, RN notes reviewed Mode of arrival: wheelchair Limitations: no limitations - History of Present Illness Initial comments: This is a 45-year-old male who comes in complaining that he has had nausea vomiting and diarrhea for one week. Patient states he is a diabetic. Patient states she's not been checking her sugars. Patient states he has diffuse abdominal pain but no specific area of abdominal tenderness. Patient denies any recent fever chills or cough. Patient denies any chest pain palpitations or difficulty breathing. Patient denies any back pain. Patient denies any dysuria hematuria urinary frequency. Patient states he is mildly lightheaded has not passed out and didn't feel like he was going to pass out. Patient denies any headache patient denies numbness weakness. Patient denies any recent history of trauma or injury - Related Data Home Medications Medication Instructions Recorded Confirmed Insulin Glargine [Lantus] 80 unit SQ HS 04/22/16 09/04/16 Atorvastatin [Lipitor] 40 mg PO HS 09/04/16 09/04/16 Cyanocobalamin [Vitamin B-12] 500 mcg PO DAILY 09/04/16 09/04/16 Liraglutide [Victoza 2-Rafat] 1.8 mg SQ HS 09/04/16 09/04/16 Venlafaxine HCl [Venlafaxine HCl 225 mg PO HS 09/04/16 09/04/16 ER] buPROPion SR [Wellbutrin Sr] 100 mg PO HS 09/04/16 09/04/16 Allergies Allergy/AdvReac Type Severity Reaction Status Date / Time lactose AdvReac Nausea & Verified 09/04/16 13:52 Vomiting & Diarrhea Review of Systems ROS Statement: Those systems with pertinent positive or pertinent negative responses have been documented in the HPI. ROS Other: All systems not noted in ROS Statement are negative. Past Medical History Past Medical History: Diabetes Mellitus, Hypertension Additional Past Medical History / Comment(s): neuropathy History of Any Multi-Drug Resistant Organisms: MRSA Date of last positivie culture/infection: 04/22/16 MDRO Source:: Right Hand Past Surgical History: No Surgical Hx Reported Additional Past Surgical History / Comment(s): Colonscopy Past Psychological History: Anxiety, Depression Smoking Status: Never smoker Past Alcohol Use History: None Reported Past Drug Use History: None Reported - Past Family History Mother Family Medical History: Diabetes Mellitus General Exam - General Exam Comments Initial Comments: GENERAL: Patient is well-developed and well-nourished. Patient is nontoxic and well- hydrated and is in mild distress. ENT: Neck is soft and supple. No significant lymphadenopathy is noted. Oropharynx is clear. Dry mucous membranes. Neck has full range of motion without eliciting any pain. EYES: The sclera were anicteric and conjunctiva were pink and moist. Extraocular movements were intact and pupils were equal round and reactive to light. Eyelids were unremarkable. PULMONARY: Unlabored respirations. Good breath sounds bilaterally. No audible rales rhonchi or wheezing was noted. CARDIOVASCULAR: There is a regular rate and rhythm without any murmurs gallops or rubs. ABDOMEN: Soft and nontender with normal bowel sounds. No palpable organomegaly was noted. There is no palpable pulsatile mass. SKIN: Skin is clear with no lesions or rashes and otherwise unremarkable. NEUROLOGIC: Patient is alert and oriented x3. Cranial nerves II through XII are grossly intact. Motor and sensory are also intact. MUSCULOSKELETAL: Normal extremities with adequate strength and full range of motion. No lower extremity swelling or edema. No calf tenderness. LYMPHATICS: No significant lymphadenopathy is noted PSYCHIATRIC: Normal psychiatric evaluation. Normal interpersonal interactions appears functionally intact in deals appropriately with others. Limitations: no limitations Course Vital Signs 09/04/16 10:56 Temperature 97.3 F L Pulse Rate 96 Respiratory 20 Rate Blood Pressure 116/73 O2 Sat by Pulse 100 Oximetry Medical Decision Making - Lab Data Result diagrams: 09/04/16 14:20 09/04/16 14:20 Lab Results 09/04/16 09/04/16 09/04/16 Range/Units 14:05 14:08 14:20 WBC (3.8-10.6) k/uL RBC (4.30-5.90) m/uL Hgb (13.0-17.5) gm/dL Hct (39.0-53.0) % MCV (80.0-100.0) fL MCH (25.0-35.0) pg MCHC (31.0-37.0) g/dL RDW (11.5-15.5) % Plt Count (150-450) k/uL Neutrophils % % Lymphocytes % % Monocytes % % Eosinophils % % Basophils % % Neutrophils # (1.3-7.7) k/uL Lymphocytes # (1.0-4.8) k/uL Monocytes # (0-1.0) k/uL Eosinophils # (0-0.7) k/uL Basophils # (0-0.2) k/uL Sodium 143 (137-145) mmol/L Potassium 4.6 (3.5-5.1) mmol/L Chloride 99 (98-107) mmol/L Carbon Dioxide 32 H (22-30) mmol/L Anion Gap 12 mmol/L BUN 37 H (9-20) mg/dL Creatinine 1.90 H (0.66-1.25) mg/dL Est GFR (MDRD) Af Amer 47 (>60 ml/min/1.73 sqM) Est GFR (MDRD) Non-Af 39 (>60 ml/min/1.73 sqM) Glucose 243 H (74-99) mg/dL POC Glucose (mg/dL) 246 H (75-99) mg/dL POC Glu [employer] ID [place], Angelita Calcium 10.2 (8.4-10.2) mg/dL Total Bilirubin 0.6 (0.2-1.3) mg/dL AST 24 (17-59) U/L ALT 36 (21-72) U/L Alkaline Phosphatase 95 (38-126) U/L Total Protein 7.6 (6.3-8.2) g/dL Albumin 4.3 (3.5-5.0) g/dL Amylase 65 (30-110) U/L Lipase 92 (23-300) U/L Acetone, Qual Negative (Negative) 09/04/16 Range/Units 14:20 WBC 5.8 (3.8-10.6) k/uL RBC 4.45 (4.30-5.90) m/uL Hgb 12.3 L (13.0-17.5) gm/dL Hct 36.2 L (39.0-53.0) % MCV 81.2 (80.0-100.0) fL MCH 27.7 (25.0-35.0) pg MCHC 34.1 (31.0-37.0) g/dL RDW 13.3 (11.5-15.5) % Plt Count 290 (150-450) k/uL Neutrophils % 67 % Lymphocytes % 24 % Monocytes % 6 % Eosinophils % 2 % Basophils % 1 % Neutrophils # 3.9 (1.3-7.7) k/uL Lymphocytes # 1.4 (1.0-4.8) k/uL Monocytes # 0.3 (0-1.0) k/uL Eosinophils # 0.1 (0-0.7) k/uL Basophils # 0.0 (0-0.2) k/uL Sodium (137-145) mmol/L Potassium (3.5-5.1) mmol/L Chloride (98-107) mmol/L Carbon Dioxide (22-30) mmol/L Anion Gap mmol/L BUN (9-20) mg/dL Creatinine (0.66-1.25) mg/dL Est GFR (MDRD) Af Amer (>60 ml/min/1.73 sqM) Est GFR (MDRD) Non-Af (>60 ml/min/1.73 sqM) Glucose (74-99) mg/dL POC Glucose (mg/dL) (75-99) mg/dL POC Glu [employer] ID Calcium (8.4-10.2) mg/dL Total Bilirubin (0.2-1.3) mg/dL AST (17-59) U/L ALT (21-72) U/L Alkaline Phosphatase (38-126) U/L Total Protein (6.3-8.2) g/dL Albumin (3.5-5.0) g/dL Amylase (30-110) U/L Lipase (23-300) U/L Acetone, Qual (Negative) Disposition Clinical Impression: Gastroenteritis Disposition: HOME SELF-CARE Condition: Good Instructions: Acute Nausea and Vomiting (ED) Referrals: Justine Guillen MD [Primary Care Provider] - 1-2 days Time of Disposition: 16:17
[2016-09-04 14:13] LABS: Glucose,Whole Blood 246 mg/dL (75-99)
[2016-09-04 14:29] LABS: Basophils % (A) 1 %; CH 27.8; CHCM 34.4; Eosinophils # (A) 0.1 k/uL (0-0.7); Eosinophils % (A) 2 %; HCT 36.2 % (39.0-53.0); HDW 3.32; HGB 12.3 gm/dL (13.0-17.5); Luc # (Auto) 0.06; Luc % (Auto) 1; Lymphocytes # (A) 1.4 k/uL (1.0-4.8); Lymphocytes % (A) 24 %; MCH 27.7 pg (25.0-35.0); MCHC 34.1 g/dL (31.0-37.0); MCV 81.2 fL (80.0-100.0); Mean Platelet Volume 6.4; Monocytes # (A) 0.3 k/uL (0-1.0); Monocytes % (A) 6 %; Neutrophils # (A) 3.9 k/uL (1.3-7.7); Neutrophils % (A) 67 %; RBC 4.45 m/uL (4.30-5.90); RDW 13.3 % (11.5-15.5); WBC 5.8 k/uL (3.8-10.6); WBC (Perox) 5.59
[2016-09-04 14:45] LABS: Calcium 10.2 mg/dL (8.4-10.2); Potassium 4.6 mmol/L (3.5-5.1); Total Bilirubin 0.6 mg/dL (0.2-1.3); Total Protein 7.6 g/dL (6.3-8.2)
[2016-09-04] MEDS ORDERED: ONDANSETRON 4 MG ODT STARTER PACK 2 TAB BTL PO STA (16:17)
[2016-09-04] MEDS ORDERED: DIPHENOX-ATROP STARTER PACK 8 TAB BTL PO STA (16:17)
[2016-09-04 16:38] VITALS: BP 114/86; PULSE 90; RESP 16
== END 2016-09-04 16:38 | disposition home or self-care (01) ==
LOC: EC 10:53
DX: K52.9 Noninfective gastroenteritis and colitis, unspecified (principal); R42 Dizziness and giddiness; E11.40 Type 2 diabetes mellitus with diabetic neuropathy, unspecified; I10 Essential (primary) hypertension; F32.9 Major depressive disorder, single episode, unspecified; F41.9 Anxiety disorder, unspecified; Z79.4 Long term (current) use of insulin; Z79.899 Other long term (current) drug therapy; Z91.011 Allergy to milk products
CPT/HCPCS: 36415; 80053; 82150; 82009; 83690; 85025; 99284; 96374; 96361; J2405; S0119

== ENCOUNTER → 2016-10-09 | Outpatient (CLI) | payer OTHER ==
--- NOTE | 2016-10-09 11:30 | NM ---
EXAMINATION TYPE: NM gastric emptying study DATE OF EXAM: 10/09/2016 COMPARISON: CT abdomen 10/20/2015 HISTORY: K 52.9 Following administration of 2 mCi Tc 99m Sulfur Colloid with 1 cup of oatmeal projection images of th e abdomen were obtained 10 minutes post ingestion. Both anterior and posterior projection images were obtained to allow the calculation of the geometric mean activity. Time activity curve was generated. Clearance: 45 % Time to half of activity is 48 minutes. Gastroesophagel reflux: None IMPRESSION: Gastric emptying: Normal Gastroesophageal reflux: None evident Normal study
== END | disposition home or self-care (01) ==
LOC: RADNMMAIN 06:59
PROVIDERS: ATTEND Family Medicine
DX: K52.9 Noninfective gastroenteritis and colitis, unspecified (principal); E11.9 Type 2 diabetes mellitus without complications
CPT/HCPCS: 78264; A9541

== ENCOUNTER 2017-03-05 15:22 | Emergency (ER) | payer OTHER ==
[2017-03-05 15:34] VITALS: RESP 18
[2017-03-05 15:42] LABS: Glucose,Whole Blood 310 mg/dL (75-99)
[2017-03-05] MEDS ORDERED: SODIUM CHLORIDE 0.9% 1,000 ML IV STA (15:57)
--- NOTE | 2017-03-05 15:59 | ED ---
General Adult HPI - General Chief complaint: Recheck/Abnormal Lab/Rx Stated complaint: Med reaction Time Seen by Provider: 03/05/17 15:45 Source: patient, RN notes reviewed Mode of arrival: ambulatory Limitations: no limitations - History of Present Illness Initial comments: 46-year-old male presents emergency Department chief complaint of elevated glucose. Patient states he had a high reading on his glucometer today so he took insulin. Patient states that he didn't recheck his renal still read high so he came in. Patient states he just feels very off. He just feels as if something is off. He has no nausea vomiting no abdominal pain. He denies any recent illnesses any fevers or chills. Patient was concerned due to the symptoms so he thought that he should be evaluated. Patient denies any recent fever, chills, shortness of breath, chest pain, back pain, abdominal pain, nausea vomiting, numbness or tingling, dysuria or hematuria, constipation or diarrhea, headaches or visual changes, or any other current symptoms. - Related Data Home Medications Medication Instructions Recorded Confirmed Atorvastatin [Lipitor] 40 mg PO DAILY 09/04/16 03/05/17 Venlafaxine HCl [Venlafaxine HCl 225 mg PO QAM 09/04/16 03/05/17 ER] Gabapentin [Neurontin] 400 mg PO DAILY 03/05/17 03/05/17 HYDROcodone/APAP 7.5-325MG [[place] 1 tab PO Q6HR PRN 03/05/17 03/05/17 7.5-325] INSULIN LISPRO (humaLOG) [humaLOG] 10 units SQ AC-TID 03/05/17 03/05/17 INSULIN LISPRO (humaLOG) [humaLOG] See Protocol SQ AC-TID PRN 03/05/17 03/05/17 Omeprazole 40 mg PO DAILY 03/05/17 03/05/17 Pioglitazone [Actos] 30 mg PO DAILY 03/05/17 03/05/17 buPROPion HCL [buPROPion HCL SR] 150 mg PO BID 03/05/17 03/05/17 metFORMIN HCL [Glucophage] 500 mg PO AC-BID 03/05/17 03/05/17 Allergies Allergy/AdvReac Type Severity Reaction Status Date / Time lactose AdvReac Nausea & Verified 03/05/17 15:41 Vomiting & Diarrhea Review of Systems ROS Statement: Those systems with pertinent positive or pertinent negative responses have been documented in the HPI. ROS Other: All systems not noted in ROS Statement are negative. Past Medical History Past Medical History: Diabetes Mellitus, Hypertension Additional Past Medical History / Comment(s): neuropathy History of Any Multi-Drug Resistant Organisms: MRSA Date of last positivie culture/infection: 04/22/16 MDRO Source:: Right Hand Past Surgical History: No Surgical Hx Reported Additional Past Surgical History / Comment(s): Colonscopy Past Psychological History: Anxiety, Depression Smoking Status: Never smoker Past Alcohol Use History: None Reported Past Drug Use History: None Reported - Past Family History Mother Family Medical History: Diabetes Mellitus General Exam Limitations: no limitations General appearance: alert, in no apparent distress ENT exam: Present: normal exam, mucous membranes moist Neck exam: Present: normal inspection. Absent: tenderness, meningismus, lymphadenopathy Respiratory exam: Present: normal lung sounds bilaterally. Absent: respiratory distress, wheezes, rales, rhonchi, stridor Cardiovascular Exam: Present: regular rate, normal rhythm, normal heart sounds. Absent: systolic murmur, diastolic murmur, rubs, gallop, clicks GI/Abdominal exam: Present: soft, normal bowel sounds. Absent: distended, tenderness, guarding, rebound, rigid Extremities exam: Present: normal inspection, full ROM, normal capillary refill. Absent: tenderness, pedal edema, joint swelling, calf tenderness Back exam: Present: normal inspection Neurological exam: Present: alert, oriented X3 Psychiatric exam: Present: normal affect, normal mood Skin exam: Present: warm, dry, intact, normal color. Absent: rash Course Vital Signs 03/05/17 03/05/17 15:31 18:30 Temperature 98.2 F 97.0 F L Pulse Rate 79 67 Respiratory 18 18 Rate Blood Pressure 152/98 125/78 O2 Sat by Pulse 98 100 Oximetry Medical Decision Making - Medical Decision Making 46-year-old male presents to the emergency department with a chief complaint of hyperglycemia. This time lab work is been reviewed. Patient does appear to have some dehydration with elevated creatinine. We did discuss close follow-up with his doctor for this. He was given fluids and pulses remained stable. This time the patient will be discharged home. All questions have been answered. - Lab Data Result diagrams: 03/05/17 16:04 03/05/17 16:04 Lab Results 03/05/17 03/05/17 03/05/17 Range/Units 15:38 16:04 16:04 WBC 6.4 (3.8-10.6) k/uL RBC 3.99 L (4.30-5.90) m/uL Hgb 11.2 L (13.0-17.5) gm/dL Hct 33.4 L (39.0-53.0) % MCV 83.9 (80.0-100.0) fL MCH 28.2 (25.0-35.0) pg MCHC 33.6 (31.0-37.0) g/dL RDW 14.0 (11.5-15.5) % Plt Count 262 (150-450) k/uL Neutrophils % 63 % Lymphocytes % 28 % Monocytes % 6 % Eosinophils % 2 % Basophils % 1 % Neutrophils # 4.0 (1.3-7.7) k/uL Lymphocytes # 1.8 (1.0-4.8) k/uL Monocytes # 0.4 (0-1.0) k/uL Eosinophils # 0.2 (0-0.7) k/uL Basophils # 0.0 (0-0.2) k/uL Sodium 140 (137-145) mmol/L Potassium 4.4 (3.5-5.1) mmol/L Chloride 103 (98-107) mmol/L Carbon Dioxide 25 (22-30) mmol/L Anion Gap 12 mmol/L BUN 28 H (9-20) mg/dL Creatinine 1.40 H (0.66-1.25) mg/dL Est GFR (MDRD) Af Amer >60 (>60 ml/min/1.73 sqM) Est GFR (MDRD) Non-Af 55 (>60 ml/min/1.73 sqM) Glucose 315 H (74-99) mg/dL POC Glucose (mg/dL) 310 H (75-99) mg/dL POC Glu Electrotyper Helper ID Beka Masters Calcium 9.7 (8.4-10.2) mg/dL Total Bilirubin 0.4 (0.2-1.3) mg/dL AST 28 (17-59) U/L ALT 34 (21-72) U/L Alkaline Phosphatase 137 H (38-126) U/L Total Protein 6.8 (6.3-8.2) g/dL Albumin 4.0 (3.5-5.0) g/dL Urine Color Urine Appearance (Clear) Urine pH (5.0-8.0) Ur Specific [place] (1.001-1.035) Urine Protein (Negative) Urine Glucose (UA) (Negative) Urine Ketones (Negative) Urine Blood (Negative) Urine Nitrite (Negative) Urine Bilirubin (Negative) Urine Urobilinogen (<2.0) mg/dL Ur Leukocyte Esterase (Negative) Acetone, Qual Negative (Negative) 03/05/17 03/05/17 Range/Units 18:06 19:01 WBC (3.8-10.6) k/uL RBC (4.30-5.90) m/uL Hgb (13.0-17.5) gm/dL Hct (39.0-53.0) % MCV (80.0-100.0) fL MCH (25.0-35.0) pg MCHC (31.0-37.0) g/dL RDW (11.5-15.5) % Plt Count (150-450) k/uL Neutrophils % % Lymphocytes % % Monocytes % % Eosinophils % % Basophils % % Neutrophils # (1.3-7.7) k/uL Lymphocytes # (1.0-4.8) k/uL Monocytes # (0-1.0) k/uL Eosinophils # (0-0.7) k/uL Basophils # (0-0.2) k/uL Sodium (137-145) mmol/L Potassium (3.5-5.1) mmol/L Chloride (98-107) mmol/L Carbon Dioxide (22-30) mmol/L Anion Gap mmol/L BUN (9-20) mg/dL Creatinine (0.66-1.25) mg/dL Est GFR (MDRD) Af Amer (>60 ml/min/1.73 sqM) Est GFR (MDRD) Non-Af (>60 ml/min/1.73 sqM) Glucose (74-99) mg/dL POC Glucose (mg/dL) 92 (75-99) mg/dL POC Glu Electrotyper Helper ID Medina Figueroa Calcium (8.4-10.2) mg/dL Total Bilirubin (0.2-1.3) mg/dL AST (17-59) U/L ALT (21-72) U/L Alkaline Phosphatase (38-126) U/L Total Protein (6.3-8.2) g/dL Albumin (3.5-5.0) g/dL Urine Color Light Yellow Urine Appearance Clear (Clear) Urine pH 6.0 (5.0-8.0) Ur Specific [place] 1.022 (1.001-1.035) Urine Protein Negative (Negative) Urine Glucose (UA) 4+ H (Negative) Urine Ketones Negative (Negative) Urine Blood Negative (Negative) Urine Nitrite Negative (Negative) Urine Bilirubin Negative (Negative) Urine Urobilinogen <2.0 (<2.0) mg/dL Ur Leukocyte Esterase Negative (Negative) Acetone, Qual (Negative) Disposition Clinical Impression: Hyperglycemia, Elevated creatine kinase, Dehydration Disposition: HOME SELF-CARE Condition: Stable Instructions: Dehydration (ED) Additional Instructions: Please use medication as discussed. Please follow up with family doctor if symptoms have not improved over the next two days. Please return to the emergency room if your symptoms increase or worsen or for any other concerns. Referrals: Justine Guillen MD [Primary Care Provider] - 1-2 days Time of Disposition: 19:02
[2017-03-05 16:14] LABS: Basophils % (A) 1 %; CHCM 33.5; Eosinophils # (A) 0.2 k/uL (0-0.7); Eosinophils % (A) 2 %; HCT 33.4 % (39.0-53.0); HGB 11.2 gm/dL (13.0-17.5); Luc # (Auto) 0.05; Luc % (Auto) 1; Lymphocytes # (A) 1.8 k/uL (1.0-4.8); Lymphocytes % (A) 28 %; MCH 28.2 pg (25.0-35.0); MCHC 33.6 g/dL (31.0-37.0); MCV 83.9 fL (80.0-100.0); Mean Platelet Volume 6.8; Monocytes # (A) 0.4 k/uL (0-1.0); Monocytes % (A) 6 %; Neutrophils % (A) 63 %; RBC 3.99 m/uL (4.30-5.90); WBC 6.4 k/uL (3.8-10.6)
[2017-03-05 16:44] LABS: ALT 34 U/L (21-72); AST 28 U/L (17-59); Alkaline Phosphatase 137 U/L (38-126); Anion Gap 12 mmol/L; Blood Urea Nitrogen 28 mg/dL (9-20); Calcium 9.7 mg/dL (8.4-10.2); Carbon Dioxide 25 mmol/L (22-30); Chloride 103 mmol/L (98-107); Glucose 315 mg/dL (74-99); Non-African American GFR(MDRD) 55 (>60 ml/min/1.73 sqM); Potassium 4.4 mmol/L (3.5-5.1); Sodium 140 mmol/L (137-145); Total Bilirubin 0.4 mg/dL (0.2-1.3); Total Protein 6.8 g/dL (6.3-8.2)
[2017-03-05 18:25] LABS: Appearance,Urine Clear (Clear); Bilirubin,Urine Negative (Negative); Glucose,Urine (UA) 4+ (Negative); Ketones,Urine Negative (Negative); Leukocyte Esterase,Urine Negative (Negative); Nitrite,Urine Negative (Negative); Protein,Urine Negative (Negative); Specific Gravity,Urine 1.022 (1.001-1.035); UA Billing (MACRO vs. MICRO) CHEM; Urobilinogen,Urine <2.0 mg/dL (<2.0)
[2017-03-05 18:30] VITALS: BP 125/78; PULSE 67; TEMP 97
[2017-03-05 19:02] LABS: Glucose,Whole Blood 92 mg/dL (75-99)
== END 2017-03-05 19:17 | disposition home or self-care (01) ==
LOC: EC 15:22
DX: E11.65 Type 2 diabetes mellitus with hyperglycemia (principal); E86.0 Dehydration; R79.89 Other specified abnormal findings of blood chemistry; I10 Essential (primary) hypertension; E11.40 Type 2 diabetes mellitus with diabetic neuropathy, unspecified; F32.9 Major depressive disorder, single episode, unspecified; Z91.011 Allergy to milk products; Z79.4 Long term (current) use of insulin; Z79.84 Long term (current) use of oral hypoglycemic drugs; Z79.899 Other long term (current) drug therapy
CPT/HCPCS: 36415; 80053; 81003; 82009; 85025; 96360; 96361; 99283

== ENCOUNTER 2017-04-24 15:22 | Observation (INO) | payer OTHER ==
[2017-04-24] MEDS ORDERED: ASPIRIN 81 MG PO STA (15:37)
[2017-04-24] MEDS ORDERED: NITROGLYCERIN SL TABS 0.4 MG TAB SUBLINGUAL STA ×3 (15:37)
--- NOTE | 2017-04-24 15:39 | ED ---
General Adult HPI - General Chief complaint: Shortness of Breath Stated complaint: Chest pressure Time Seen by Provider: 04/24/17 15:31 Source: patient, RN notes reviewed Mode of arrival: wheelchair Limitations: no limitations - History of Present Illness Initial comments: Patient is a pleasant 46-year-old male presenting to the emergency Department with chest pressure. Symptoms started a few days ago but seemed worse today. Patient has pressure in his left chest. Patient does have associated dyspnea. Minimal cough. No fevers. No nausea vomiting. Symptoms do worsen with exertion. Symptoms do also worsen somewhat with oral intake and lying flat. No leg pain or leg swelling. No history of similar symptoms previously. No vomiting or diaphoresis. - Related Data Home Medications Medication Instructions Recorded Confirmed Atorvastatin [Lipitor] 40 mg PO DAILY 09/04/16 04/24/17 Venlafaxine HCl [Venlafaxine HCl 225 mg PO QAM 09/04/16 04/24/17 ER] Gabapentin [Neurontin] 400 mg PO DAILY 03/05/17 04/24/17 HYDROcodone/APAP 7.5-325MG [[place] 1 tab PO Q6HR PRN 03/05/17 04/24/17 7.5-325] INSULIN LISPRO (humaLOG) [humaLOG] 10 units SQ AC-TID 03/05/17 04/24/17 INSULIN LISPRO (humaLOG) [humaLOG] See Protocol SQ AC-TID PRN 03/05/17 04/24/17 Omeprazole 40 mg PO DAILY 03/05/17 04/24/17 Pioglitazone [Actos] 30 mg PO DAILY 03/05/17 04/24/17 buPROPion HCL [buPROPion HCL SR] 150 mg PO BID 03/05/17 04/24/17 metFORMIN HCL [Glucophage] 500 mg PO AC-BID 03/05/17 04/24/17 Insulin Glargine [Lantus] 40 unit SQ HS 04/24/17 04/24/17 Allergies Allergy/AdvReac Type Severity Reaction Status Date / Time lactose AdvReac Nausea & Verified 04/24/17 15:55 Vomiting & Diarrhea Review of Systems ROS Statement: Those systems with pertinent positive or pertinent negative responses have been documented in the HPI. ROS Other: All systems not noted in ROS Statement are negative. Constitutional: Denies: fever Eyes: Denies: eye pain ENT: Denies: ear pain Respiratory: Reports: dyspnea Cardiovascular: Reports: chest pain Endocrine: Denies: heat or cold intolerance Gastrointestinal: Denies: abdominal pain, vomiting Genitourinary: Denies: dysuria Musculoskeletal: Denies: back pain Skin: Denies: rash Neurological: Denies: weakness Past Medical History Past Medical History: Diabetes Mellitus Additional Past Medical History / Comment(s): neuropathy History of Any Multi-Drug Resistant Organisms: MRSA Date of last positivie culture/infection: 04/22/16 MDRO Source:: Right Hand Past Surgical History: No Surgical Hx Reported Additional Past Surgical History / Comment(s): Colonscopy, right hand I and D Past Psychological History: Anxiety, Depression Smoking Status: Never smoker Past Alcohol Use History: None Reported Past Drug Use History: None Reported - Past Family History Mother Family Medical History: Diabetes Mellitus General Exam Limitations: no limitations General appearance: alert, in no apparent distress Head exam: Present: atraumatic Eye exam: Present: normal appearance, PERRL ENT exam: Present: normal oropharynx Neck exam: Present: normal inspection Respiratory exam: Present: normal lung sounds bilaterally, chest wall tenderness Cardiovascular Exam: Present: regular rate, normal rhythm Expanded Peripheral pulses: 2+: Radial (R), Radial (L), Posterior Tibialis (R), Posterior Tibialis (L) GI/Abdominal exam: Present: soft. Absent: distended, tenderness Extremities exam: Present: normal inspection. Absent: pedal edema, calf tenderness Neurological exam: Present: alert Psychiatric exam: Present: normal affect, normal mood Skin exam: Present: normal color Course Vital Signs 04/24/17 04/24/17 04/24/17 15:24 16:18 16:23 Temperature 97.3 F L Pulse Rate 103 H 97 96 Respiratory 17 18 18 Rate Blood Pressure 143/86 138/97 122/66 O2 Sat by Pulse 98 96 98 Oximetry 04/24/17 16:28 Temperature Pulse Rate 94 Respiratory 18 Rate Blood Pressure 110/60 O2 Sat by Pulse 97 Oximetry - Reevaluation(s) Reevaluation #1: 04/24/17 17:44 Patient reevaluated and updated. Dr. Guillen has been paged. IV insulin has been started. Serum acetone added. 04/24/17 18:04 Case was discussed in detail with Dr. Garza who does not want to have insulin drip started. She recommends continued regular insulin. EKG Findings - EKG Comments: EKG Findings:: Normal sinus rhythm 98. SC 140. QRS 76. QT 338. QTC 431. Normal axis. Normal QRS. No acute ST change. Medical Decision Making - Lab Data Result diagrams: 04/24/17 16:03 04/24/17 16:03 Lab Results 04/24/17 04/24/17 04/24/17 Range/Units 16:03 16:03 16:03 WBC 9.3 (3.8-10.6) k/uL RBC 4.13 L (4.30-5.90) m/uL Hgb 11.3 L (13.0-17.5) gm/dL Hct 35.5 L (39.0-53.0) % MCV 85.9 (80.0-100.0) fL MCH 27.4 (25.0-35.0) pg MCHC 31.8 (31.0-37.0) g/dL RDW 14.3 (11.5-15.5) % Plt Count 278 (150-450) k/uL Neutrophils % 81 % Lymphocytes % 12 % Monocytes % 4 % Eosinophils % 2 % Basophils % 0 % Neutrophils # 7.5 (1.3-7.7) k/uL Lymphocytes # 1.1 (1.0-4.8) k/uL Monocytes # 0.4 (0-1.0) k/uL Eosinophils # 0.1 (0-0.7) k/uL Basophils # 0.0 (0-0.2) k/uL PT (9.0-12.0) sec INR (<1.2) APTT (22.0-30.0) sec D-Dimer (<0.60) mg/L FEU Sodium 135 L (137-145) mmol/L Potassium 4.7 (3.5-5.1) mmol/L Chloride 96 L (98-107) mmol/L Carbon Dioxide 28 (22-30) mmol/L Anion Gap 11 mmol/L BUN 27 H (9-20) mg/dL Creatinine 1.29 H (0.66-1.25) mg/dL Est GFR (MDRD) Af Amer >60 (>60 ml/min/1.73 sqM) Est GFR (MDRD) Non-Af >60 (>60 ml/min/1.73 sqM) Glucose 554 H* (74-99) mg/dL POC Glucose (mg/dL) (75-99) mg/dL POC Glu Physician Obstetrician ID Calcium 10.0 (8.4-10.2) mg/dL Magnesium 1.6 (1.6-2.3) mg/dL Total Bilirubin 0.6 (0.2-1.3) mg/dL AST 26 (17-59) U/L ALT 39 (21-72) U/L Alkaline Phosphatase 135 H (38-126) U/L Total Creatine Kinase 73 (55-170) U/L CK-MB (CK-2) 1.6 (0.0-2.4) ng/mL CK-MB (CK-2) Rel Index 2.2 Troponin I <0.012 (0.000-0.034) ng/mL NT-Pro-B Natriuret Pep pg/mL Total Protein 6.8 (6.3-8.2) g/dL Albumin 4.1 (3.5-5.0) g/dL 04/24/17 04/24/17 04/24/17 Range/Units 16:03 16:03 16:40 WBC (3.8-10.6) k/uL RBC (4.30-5.90) m/uL Hgb (13.0-17.5) gm/dL Hct (39.0-53.0) % MCV (80.0-100.0) fL MCH (25.0-35.0) pg MCHC (31.0-37.0) g/dL RDW (11.5-15.5) % Plt Count (150-450) k/uL Neutrophils % % Lymphocytes % % Monocytes % % Eosinophils % % Basophils % % Neutrophils # (1.3-7.7) k/uL Lymphocytes # (1.0-4.8) k/uL Monocytes # (0-1.0) k/uL Eosinophils # (0-0.7) k/uL Basophils # (0-0.2) k/uL PT 10.3 (9.0-12.0) sec INR 1.1 (<1.2) APTT 22.9 (22.0-30.0) sec D-Dimer 0.35 (<0.60) mg/L FEU Sodium (137-145) mmol/L Potassium (3.5-5.1) mmol/L Chloride (98-107) mmol/L Carbon Dioxide (22-30) mmol/L Anion Gap mmol/L BUN (9-20) mg/dL Creatinine (0.66-1.25) mg/dL Est GFR (MDRD) Af Amer (>60 ml/min/1.73 sqM) Est GFR (MDRD) Non-Af (>60 ml/min/1.73 sqM) Glucose (74-99) mg/dL POC Glucose (mg/dL) 510 H (75-99) mg/dL POC Glu Physician Obstetrician ID Evon, Cynthia Calcium (8.4-10.2) mg/dL Magnesium (1.6-2.3) mg/dL Total Bilirubin (0.2-1.3) mg/dL AST (17-59) U/L ALT (21-72) U/L Alkaline Phosphatase (38-126) U/L Total Creatine Kinase (55-170) U/L CK-MB (CK-2) (0.0-2.4) ng/mL CK-MB (CK-2) Rel Index Troponin I (0.000-0.034) ng/mL NT-Pro-B Natriuret Pep 100 pg/mL Total Protein (6.3-8.2) g/dL Albumin (3.5-5.0) g/dL - Radiology Data Radiology results: image reviewed (This x-ray shows no acute process) Disposition Clinical Impression: Hyperglycemia, Chest pain Disposition: ADMITTED IP TO THIS HOSP Referrals: Justine Guillen MD [Primary Care Provider] - 1-2 days Decision Time: 18:05
[2017-04-24 16:19] LABS: Basophils % (A) 0 %; Eosinophils # (A) 0.1 k/uL (0-0.7); Eosinophils % (A) 2 %; HCT 35.5 % (39.0-53.0); HGB 11.3 gm/dL (13.0-17.5); Lymphocytes # (A) 1.1 k/uL (1.0-4.8); Lymphocytes % (A) 12 %; MCH 27.4 pg (25.0-35.0); MCHC 31.8 g/dL (31.0-37.0); MCV 85.9 fL (80.0-100.0); Mean Platelet Volume 6.8; Monocytes # (A) 0.4 k/uL (0-1.0); Monocytes % (A) 4 %; Neutrophils # (A) 7.5 k/uL (1.3-7.7); Neutrophils % (A) 81 %; Platelet Count 278 k/uL (150-450); RBC 4.13 m/uL (4.30-5.90); RDW 14.3 % (11.5-15.5); WBC 9.3 k/uL (3.8-10.6)
[2017-04-24 16:22] LABS: D-Dimer 0.35 mg/L FEU (<0.60)
[2017-04-24 16:25] LABS: ALT 39 U/L (21-72); AST 26 U/L (17-59); Albumin 4.1 g/dL (3.5-5.0); Alkaline Phosphatase 135 U/L (38-126); Anion Gap 11 mmol/L; Blood Urea Nitrogen 27 mg/dL (9-20); Carbon Dioxide 28 mmol/L (22-30); Chloride 96 mmol/L (98-107); Magnesium 1.6 mg/dL (1.6-2.3); Potassium 4.7 mmol/L (3.5-5.1); Sodium 135 mmol/L (137-145); Total Bilirubin 0.6 mg/dL (0.2-1.3); Total Protein 6.8 g/dL (6.3-8.2)
[2017-04-24 16:28] LABS: INR 1.1 (<1.2); Partial Thromboplastin Time 22.9 sec (22.0-30.0); Prothrombin Time 10.3 sec (9.0-12.0)
[2017-04-24 16:35] LABS: Glucose 554 mg/dL (74-99)
[2017-04-24 16:40] LABS: Creatine Kinase 73 U/L (55-170)
[2017-04-24 16:43] LABS: Glucose,Whole Blood 510 mg/dL (75-99)
[2017-04-24 16:53] LABS: Creatine Kinase MB 1.6 ng/mL (0.0-2.4); Troponin I <0.012 ng/mL (0.000-0.034)
--- NOTE | 2017-04-24 17:16 | XR ---
EXAMINATION TYPE: XR chest 2V DATE OF EXAM: 04/24/2017 COMPARISON: 09/11/2015 HISTORY: Chest pain TECHNIQUE: Frontal and lateral views of the chest are obtained. FINDINGS: There is no heart failure nor confluent pneumonic infiltrate. Costophrenic angles are topher r. There are no hilar masses. Bony thorax is intact. IMPRESSION: No active cardiopulmonary disease. No change.
[2017-04-24] MEDS ORDERED: SODIUM CHLORIDE 0.9% 1,000 ML IV ONE (17:43)
[2017-04-24] MEDS ORDERED: INSULIN REGULAR BOLUS (FROM DRIP BAG) IV ONE (17:43)
[2017-04-24] MEDS ORDERED: INSULIN REGULAR 100 UNIT in SODIUM CHLORIDE 0.9% 100 ML IV SCH (17:45)
[2017-04-24] MEDS ORDERED: SODIUM CHLORIDE 0.9% 1,000 ML IV SCH (17:45)
[2017-04-24] MEDS ORDERED: INSULIN ASPART 100 UNIT/ML 1 ML 10 ML VIAL SQ ONE (18:04)
[2017-04-24] MEDS ORDERED: NITROGLYCERIN SL TABS 0.4 MG TAB SUBLINGUAL PRN (18:06)
[2017-04-24] MEDS ORDERED: HYDROcodone/APAP 7.5-325MG 1 EACH TAB PO PRN (18:07)
[2017-04-24 18:30] LABS: Glucose,Whole Blood 467 mg/dL (75-99)
[2017-04-24 19:32] LABS: Glucose,Whole Blood 375 mg/dL (75-99)
[2017-04-24] MEDS ORDERED: INSULIN DETEMIR 100 UNIT/ML 10 ML VIAL SQ SCH (21:00)
[2017-04-24 21:08] LABS: Glucose,Whole Blood 268 mg/dL (75-99)
[2017-04-24 21:53] LABS: Anion Gap 8 mmol/L; Blood Urea Nitrogen 26 mg/dL (9-20); Carbon Dioxide 32 mmol/L (22-30); Chloride 101 mmol/L (98-107); Glucose 257 mg/dL (74-99); Sodium 141 mmol/L (137-145)
[2017-04-24 21:56] VITALS: BMI 29.9
[2017-04-24 21:58] LABS: Creatine Kinase 59 U/L (55-170)
[2017-04-24] MEDS: buPROPion SR 150 MG TABLET.ER PO SCH (21:59)
[2017-04-24] MEDS: INSULIN ASPART 100 UNIT/ML 1 ML 10 ML VIAL SQ SCH (22:00)
[2017-04-24 22:11] LABS: Creatine Kinase MB 1.2 ng/mL (0.0-2.4); Troponin I <0.012 ng/mL (0.000-0.034)
[2017-04-24] MEDS ORDERED: PANTOPRAZOLE 40 MG TABLET PO SCH (22:15)
[2017-04-24] MEDS ORDERED: ATORVASTATIN 40 MG TAB PO SCH (22:15)
[2017-04-24] MEDS ORDERED: GABAPENTIN 400 MG CAP PO SCH (22:15)
[2017-04-24] MEDS ORDERED: PIOGLITAZONE 30 MG TAB PO SCH (22:15)
[2017-04-24] MEDS ORDERED: VENLAFAXINE HCL ER 75 MG CAP PO SCH (22:15)
[2017-04-25] MEDS: NITROGLYCERIN OINT 1 INCH/GM PACKET TOPICAL SCH ×2 (01:00→05:29)
[2017-04-25 01:35] LABS: Glucose,Whole Blood 150 mg/dL (75-99)
[2017-04-25 02:09] LABS: Anion Gap 7 mmol/L; Blood Urea Nitrogen 25 mg/dL (9-20); Carbon Dioxide 30 mmol/L (22-30); Chloride 104 mmol/L (98-107); Glucose 164 mg/dL (74-99); Phosphorus 4.3 mg/dL (2.5-4.5); Potassium 3.9 mmol/L (3.5-5.1); Sodium 141 mmol/L (137-145)
[2017-04-25] MEDS: DEXTROSE 5%-0.45% NACL 1,000 ML with POTASSIUM CHLORIDE 20 MEQ IV SCH ×4 (02:11→09:16)
[2017-04-25 06:28] LABS: Cholesterol 184 mg/dL (<200); HDL Cholesterol 40 mg/dL (40-60); LDL Cholesterol,Calculated 102 mg/dL (0-99); Triglycerides 211 mg/dL (<150)
[2017-04-25 06:30] LABS: Creatine Kinase 49 U/L (55-170)
[2017-04-25 06:44] LABS: Troponin I <0.012 ng/mL (0.000-0.034)
[2017-04-25 07:15] LABS: Glucose,Whole Blood 244 mg/dL (75-99)
[2017-04-25] MEDS ORDERED: PANTOPRAZOLE 40 MG TABLET PO SCH (07:30)
[2017-04-25] MEDS ORDERED: metFORMIN 500 MG TAB PO SCH (07:30)
[2017-04-25] MEDS: buPROPion SR 150 MG TABLET.ER PO SCH (08:50)
[2017-04-25] MEDS: INSULIN ASPART 100 UNIT/ML 1 ML 10 ML VIAL SQ SCH ×4 (08:51→12:37)
[2017-04-25] MEDS ORDERED: PIOGLITAZONE 30 MG TAB PO SCH (09:00)
[2017-04-25] MEDS ORDERED: GABAPENTIN 400 MG CAP PO SCH (09:00)
[2017-04-25] MEDS ORDERED: ATORVASTATIN 40 MG TAB PO SCH (09:00)
[2017-04-25] MEDS ORDERED: ASPIRIN 325 MG TAB PO SCH (09:00)
[2017-04-25] MEDS ORDERED: VENLAFAXINE HCL ER 75 MG CAP PO SCH (09:00)
[2017-04-25] MEDS ORDERED: COLCHICINE 0.6 MG TAB PO ONE (09:50)
[2017-04-25] MEDS ORDERED: LOSARTAN 50 MG TAB PO SCH (10:00)
[2017-04-25] MEDS ORDERED: EZETIMIBE 10 MG TAB PO SCH (10:00)
[2017-04-25] MEDS ORDERED: ASPIRIN 81 MG PO SCH (11:00)
--- NOTE | 2017-04-25 11:00 | P.CRDCN ---
History of Present Illness Consult reason: chest pain History of present illness: 46-year-old diabetic gentleman, uncontrolled diabetes presented with chest discomfort which is clearly pleuritic in nature and quite painful. Normal cardiac enzymes says he is compliant with his medications and takes atorvastatin 40 mg by mouth daily but LDL is still above 100 mg/dL ECGs and/or any evidence for ischemia Suggest 2-D echo and Doppler study to assess pericardium, add Zetia 10 mg by mouth daily, diabetes management per primary team and add losartan 50 mg by mouth daily Outpatient follow-up with Dr. Tapia. I will arrange for his follow-up Past Medical History Past Medical History: Diabetes Mellitus Additional Past Medical History / Comment(s): neuropathy, manolo cataracts, gastroparesis History of Any Multi-Drug Resistant Organisms: MRSA Date of last positivie culture/infection: 04/22/16 MDRO Source:: Right Hand Past Surgical History: No Surgical Hx Reported Additional Past Surgical History / Comment(s): Colonscopy, right hand I and D Past Anesthesia/Blood Transfusion Reactions: No Reported Reaction Past Psychological History: Anxiety, Depression Smoking Status: Never smoker Past Alcohol Use History: None Reported Past Drug Use History: None Reported - Past Family History Mother Family Medical History: Diabetes Mellitus Medications and Allergies Home Medications Medication Instructions Recorded Confirmed Type Atorvastatin [Lipitor] 40 mg PO HS 09/04/16 04/24/17 History Venlafaxine HCl [Venlafaxine HCl 225 mg PO HS 09/04/16 04/24/17 History ER] Gabapentin [Neurontin] 400 mg PO HS 03/05/17 04/24/17 History HYDROcodone/APAP 7.5-325MG [[place] 1 tab PO Q6HR PRN 03/05/17 04/24/17 History 7.5-325] INSULIN LISPRO (humaLOG) [humaLOG] 10 units SQ AC-TID 03/05/17 04/24/17 History INSULIN LISPRO (humaLOG) [humaLOG] See Protocol SQ AC-TID PRN 03/05/17 04/24/17 History Omeprazole 40 mg PO HS 03/05/17 04/24/17 History Pioglitazone [Actos] 30 mg PO HS 03/05/17 04/24/17 History buPROPion HCL [buPROPion HCL SR] 150 mg PO BID 03/05/17 04/24/17 History Insulin Glargine [Lantus] 40 unit SQ HS 04/24/17 04/24/17 History Allergies Allergy/AdvReac Type Severity Reaction Status Date / Time lactose AdvReac Nausea & Verified 04/24/17 15:55 Vomiting & Diarrhea Physical Exam Vitals: Vital Signs Temp Pulse Pulse Resp BP BP Pulse Ox 04/25/17 09:05 98 04/25/17 08:00 97.7 F 79 16 161/99 100 04/25/17 04:00 97.9 F 77 16 151/83 100 04/25/17 00:00 98.2 F 82 16 141/80 98 04/24/17 21:17 97.8 F 77 18 159/94 95 04/24/17 19:50 97.8 F 86 18 151/85 99 04/24/17 18:30 98.0 F 83 18 143/93 100 04/24/17 16:28 94 18 110/60 97 04/24/17 16:23 96 18 122/66 98 04/24/17 16:18 97 18 138/97 96 04/24/17 15:24 97.3 F L 103 H 17 143/86 98 Intake and Output 04/24/17 04/25/17 04/25/17 22:59 06:59 14:59 Output Total 1 1 Balance -1 -1 Output: Urine 1 1 Other: Voiding Method Toilet Toilet # Voids 3 Weight 89.3 kg 89.3 kg Results 04/24/17 16:03 04/25/17 01:36 Cardiac Enzymes 04/24/17 04/24/17 04/24/17 Range/Units 16:03 16:03 21:22 AST 26 (17-59) U/L CK-MB (CK-2) 1.6 1.2 (0.0-2.4) ng/mL Troponin I <0.012 <0.012 (0.000-0.034) ng/mL 04/25/17 Range/Units 05:20 AST (17-59) U/L CK-MB (CK-2) 1.0 (0.0-2.4) ng/mL Troponin I <0.012 (0.000-0.034) ng/mL Coagulation 04/24/17 Range/Units 16:03 PT 10.3 (9.0-12.0) sec APTT 22.9 (22.0-30.0) sec Lipids 04/25/17 Range/Units 05:20 Triglycerides 211 H (<150) mg/dL Cholesterol 184 (<200) mg/dL HDL Cholesterol 40 (40-60) mg/dL CBC 04/24/17 Range/Units 16:03 WBC 9.3 (3.8-10.6) k/uL RBC 4.13 L (4.30-5.90) m/uL Hgb 11.3 L (13.0-17.5) gm/dL Hct 35.5 L (39.0-53.0) % Plt Count 278 (150-450) k/uL Comprehensive Metabolic Panel 04/24/17 04/24/17 04/25/17 Range/Units 16:03 21:22 01:36 Sodium 135 L 141 141 (137-145) mmol/L Potassium 4.7 4.0 3.9 (3.5-5.1) mmol/L Chloride 96 L 101 104 (98-107) mmol/L Carbon Dioxide 28 32 H 30 (22-30) mmol/L BUN 27 H 26 H 25 H (9-20) mg/dL Creatinine 1.29 H 1.25 1.20 (0.66-1.25) mg/dL Glucose 554 H* 257 H 164 H (74-99) mg/dL Calcium 10.0 (8.4-10.2) mg/dL AST 26 (17-59) U/L ALT 39 (21-72) U/L Alkaline Phosphatase 135 H (38-126) U/L Total Protein 6.8 (6.3-8.2) g/dL Albumin 4.1 (3.5-5.0) g/dL Current Medications Generic Name Dose Route Start Last Admin Trade Name Freq PRN Reason Stop Dose Admin Hydrocodone Bitart/Acetaminophen 1 each 04/24/17 18:07 04/24/17 23:17 [place] 7.5-325 PO 1 each Q6HR PRN Administration Pain Aspirin 325 mg 04/25/17 09:00 Aspirin PO DAILY KERVIN Atorvastatin Calcium 40 mg 04/24/17 22:15 04/24/17 23:17 Lipitor PO 40 mg HS KERVIN Administration Bupropion HCl 150 mg 04/24/17 21:00 04/25/17 08:50 Wellbutrin Sr PO 150 mg BID KERVIN Administration Ezetimibe 10 mg 04/25/17 10:00 Zetia PO DAILY [facility] Gabapentin 400 mg 04/24/17 22:15 04/24/17 23:17 Neurontin PO 400 mg HS KERVIN Administration Sodium Chloride 1,000 mls @ 200 mls/hr 04/24/17 17:45 Saline 0.9% IV .Q5H KERVIN Sodium Chloride 1,000 mls @ 500 mls/hr 04/24/17 17:43 04/24/17 18:34 Saline 0.9% IV 500 mls/hr .Q2H ONE Administration Insulin Aspart 10 unit 04/25/17 07:30 04/25/17 08:51 Novolog SQ 10 unit AC-TID KERVIN Administration Insulin Aspart 0 unit 04/24/17 21:00 04/25/17 08:51 Novolog SQ 3 unit ACHS KERVIN Administration Protocol Insulin Detemir 40 unit 04/24/17 21:00 04/24/17 22:00 Levemir SQ 40 unit HS KERVIN Administration Losartan Potassium 50 mg 04/25/17 10:00 Cozaar PO DAILY [facility] Nitroglycerin 1 inch 04/25/17 00:00 04/25/17 05:29 Nitro-Bid Oint TOPICAL Not Given Q6HR [facility] Nitroglycerin 0.4 mg 04/24/17 18:06 Nitrostat SUBLINGUAL Q5M PRN Chest Pain Pantoprazole Sodium 40 mg 04/24/17 22:15 04/24/17 23:17 Protonix PO 40 mg HS KERVIN Administration Pioglitazone HCl 30 mg 04/24/17 22:15 04/24/17 23:17 Actos PO 30 mg HS KERVIN Administration Venlafaxine HCl 225 mg 04/24/17 22:15 04/24/17 23:17 Effexor Xr PO 225 mg HS KERVIN Administration Intake and Output 04/24/17 04/25/17 04/25/17 22:59 06:59 14:59 Output Total 1 1 Balance -1 -1 Output: Urine 1 1 Other: Voiding Method Toilet Toilet # Voids 3 Weight 89.3 kg 89.3 kg 04/24/17 16:03 04/25/17 01:36
[2017-04-25] MEDS ORDERED: IBUPROFEN 400 MG TAB PO PRN (11:08)
--- NOTE | 2017-04-25 11:14 | P.CRDCN ---
History of Present Illness Consult date: 04/25/17 History of present illness: Mr. Orellana is a 46-year-old male with past medical history significant for diabetes mellitus, dyslipidemia and peripheral neuropathy. He denies history of coronary artery disease or hypertension and has never seen a incident response engineer for any reason. We've been asked to see him in consultation for complaints of heavy sensation in his chest for the past 4 days. Patient cannot specify aggravating or alleviating factors. He states he has been short of breath over the previous few days as well. He does have a cough as well, nonproductive. Pain in the chest is mid-sternal and reproducible on palpation. The pain is worse when he takes a deep breath. He is unclear his family history of heart disease, denies hypertension and is not a smoker. He denies recent over exertion that could have caused the pain, denies recent fever or chills. EKG this morning sinus mechanism with no acute ST or T-wave abnormalities. Chest xray negative for an acute cardiopulmonary process. Laboratory data reviewed, cardiac enzymes negative 3, potassium 3.9, creatinine 1.2, LDL 102, HDL 40, blood sugar has been elevated throughout admission. Current cardiac medications include atorvastatin 40 mg daily. He is also on insulin for his diabetes management. Review of Systems CONSTITUTIONAL: Denies fever. Denies chills. EYES: Denies blurred vision. Denies vision changes. Denies eye pain. EARS, NOSE, MOUTH & THROAT: Denies headache. Denies sore throat. Denies ear pain. CARDIOVASCULAR: Complains of reproducible chest pain with movement, deep inspiration or cough with shortness of breath. Denies orthopnea. Denies PND. Denies palpitations. RESPIRATORY: Complains of cough. GASTROINTESTINAL: Denies abdominal pain. Denies diarrhea. Denies constipation. Denies nausea. Denies vomiting. MUSCULOSKELETAL: Denies myalgias. INTEGUMENTARY: Denies pruitis. Denies rash. NEUROLOGIC: Denies numbness. Denies tingling. Denies weakness. PSYCHIATRIC: Denies anxiety. Denies depression. ENDOCRINE: Denies fatigue. Denies weight change. Denies polydipsia. Denies polyurina. GENITOURINARY: Denies burning, hematuria or urgency with micturation. HEMATOLOGIC: Denies history of anemia. Denies bleeding. Past Medical History Past Medical History: Diabetes Mellitus Additional Past Medical History / Comment(s): neuropathy, manolo cataracts, gastroparesis History of Any Multi-Drug Resistant Organisms: MRSA Date of last positivie culture/infection: 04/22/16 MDRO Source:: Right Hand Past Surgical History: No Surgical Hx Reported Additional Past Surgical History / Comment(s): Colonscopy, right hand I and D Past Anesthesia/Blood Transfusion Reactions: No Reported Reaction Past Psychological History: Anxiety, Depression Smoking Status: Never smoker Past Alcohol Use History: None Reported Past Drug Use History: None Reported - Past Family History Mother Family Medical History: Diabetes Mellitus Medications and Allergies Home Medications Medication Instructions Recorded Confirmed Type Atorvastatin [Lipitor] 40 mg PO HS 09/04/16 04/24/17 History Venlafaxine HCl [Venlafaxine HCl 225 mg PO HS 09/04/16 04/24/17 History ER] Gabapentin [Neurontin] 400 mg PO HS 03/05/17 04/24/17 History HYDROcodone/APAP 7.5-325MG [[place] 1 tab PO Q6HR PRN 03/05/17 04/24/17 History 7.5-325] INSULIN LISPRO (humaLOG) [humaLOG] 10 units SQ AC-TID 03/05/17 04/24/17 History INSULIN LISPRO (humaLOG) [humaLOG] See Protocol SQ AC-TID PRN 03/05/17 04/24/17 History Omeprazole 40 mg PO HS 03/05/17 04/24/17 History Pioglitazone [Actos] 30 mg PO HS 03/05/17 04/24/17 History buPROPion HCL [buPROPion HCL SR] 150 mg PO BID 03/05/17 04/24/17 History Insulin Glargine [Lantus] 40 unit SQ HS 04/24/17 04/24/17 History Allergies Allergy/AdvReac Type Severity Reaction Status Date / Time lactose AdvReac Nausea & Verified 04/24/17 15:55 Vomiting & Diarrhea Physical Exam Vitals: Vital Signs Temp Pulse Pulse Resp BP BP Pulse Ox 04/25/17 04:00 97.9 F 77 16 151/83 100 04/25/17 00:00 98.2 F 82 16 141/80 98 04/24/17 21:17 97.8 F 77 18 159/94 95 04/24/17 19:50 97.8 F 86 18 151/85 99 04/24/17 18:30 98.0 F 83 18 143/93 100 04/24/17 16:28 94 18 110/60 97 04/24/17 16:23 96 18 122/66 98 04/24/17 16:18 97 18 138/97 96 04/24/17 15:24 97.3 F L 103 H 17 143/86 98 Intake and Output 04/24/17 04/25/17 04/25/17 22:59 06:59 14:59 Output Total 1 1 Balance -1 -1 Output: Urine 1 1 Other: Voiding Method Toilet # Voids 3 Weight 89.3 kg 89.3 kg Blood pressure 151/83 with heart rate is 73 afebrile GENERAL: This is a 46-year-old male in no apparent distress at the time of my examination. HEENT: Head is atraumatic, normocephalic. Pupils are equal, round. Sclerae anicteric. Conjunctivae are clear. Mucous membranes of the mouth are moist. Neck is supple. There is no jugular venous distention. No carotid bruit is heard. LUNGS: Clear to auscultation no wheezes, rales or rhonchi. Positive chest wall tenderness is noted on palpation and with deep breathing. HEART: Regular rate and rhythm without murmurs, rubs or gallops. S1 and S2 heard. ABDOMEN: Soft, nontender. Bowel sounds are heard. No organomegaly noted. EXTREMITIES: 2+ peripheral pulses with no evidence of peripheral edema and no calf tenderness noted. NEUROLOGIC: Patient is awake, alert and oriented x3. Results 04/24/17 16:03 04/25/17 01:36 Cardiac Enzymes 04/24/17 04/24/17 04/24/17 Range/Units 16:03 16:03 21:22 AST 26 (17-59) U/L CK-MB (CK-2) 1.6 1.2 (0.0-2.4) ng/mL Troponin I <0.012 <0.012 (0.000-0.034) ng/mL 04/25/17 Range/Units 05:20 AST (17-59) U/L CK-MB (CK-2) 1.0 (0.0-2.4) ng/mL Troponin I <0.012 (0.000-0.034) ng/mL Coagulation 04/24/17 Range/Units 16:03 PT 10.3 (9.0-12.0) sec APTT 22.9 (22.0-30.0) sec Lipids 04/25/17 Range/Units 05:20 Triglycerides 211 H (<150) mg/dL Cholesterol 184 (<200) mg/dL HDL Cholesterol 40 (40-60) mg/dL CBC 04/24/17 Range/Units 16:03 WBC 9.3 (3.8-10.6) k/uL RBC 4.13 L (4.30-5.90) m/uL Hgb 11.3 L (13.0-17.5) gm/dL Hct 35.5 L (39.0-53.0) % Plt Count 278 (150-450) k/uL Comprehensive Metabolic Panel 04/24/17 04/24/17 04/25/17 Range/Units 16:03 21:22 01:36 Sodium 135 L 141 141 (137-145) mmol/L Potassium 4.7 4.0 3.9 (3.5-5.1) mmol/L Chloride 96 L 101 104 (98-107) mmol/L Carbon Dioxide 28 32 H 30 (22-30) mmol/L BUN 27 H 26 H 25 H (9-20) mg/dL Creatinine 1.29 H 1.25 1.20 (0.66-1.25) mg/dL Glucose 554 H* 257 H 164 H (74-99) mg/dL Calcium 10.0 (8.4-10.2) mg/dL AST 26 (17-59) U/L ALT 39 (21-72) U/L Alkaline Phosphatase 135 H (38-126) U/L Total Protein 6.8 (6.3-8.2) g/dL Albumin 4.1 (3.5-5.0) g/dL Current Medications Generic Name Dose Route Start Last Admin Trade Name Freq PRN Reason Stop Dose Admin Hydrocodone Bitart/Acetaminophen 1 each 04/24/17 18:07 04/24/17 23:17 [place] 7.5-325 PO 1 each Q6HR PRN Administration Pain Aspirin 325 mg 04/25/17 09:00 Aspirin PO DAILY KERVIN Atorvastatin Calcium 40 mg 04/24/17 22:15 04/24/17 23:17 Lipitor PO 40 mg HS KERVIN Administration Bupropion HCl 150 mg 04/24/17 21:00 04/24/17 21:59 Wellbutrin Sr PO 150 mg BID KERVIN Administration Gabapentin 400 mg 04/24/17 22:15 04/24/17 23:17 Neurontin PO 400 mg HS KERVIN Administration Sodium Chloride 1,000 mls @ 200 mls/hr 04/24/17 17:45 Saline 0.9% IV .Q5H KERVIN Sodium Chloride 1,000 mls @ 500 mls/hr 04/24/17 17:43 04/24/17 18:34 Saline 0.9% IV 500 mls/hr .Q2H ONE Administration Potassium Chloride 20 meq/ 1,010 mls @ 150 mls/hr 04/25/17 01:45 04/25/17 02: 11 Dextrose/Sodium Chloride IV 150 mls/hr .Q6H44M KERVIN Administration Insulin Aspart 10 unit 04/25/17 07:30 Novolog SQ AC-TID KERVIN Insulin Aspart 0 unit 04/24/17 21:00 04/24/17 22:00 Novolog SQ 4 unit ACHS KERVIN Administration Protocol Insulin Detemir 40 unit 04/24/17 21:00 04/24/17 22:00 Levemir SQ 40 unit HS KERVIN Administration Nitroglycerin 1 inch 04/25/17 00:00 04/25/17 05:29 Nitro-Bid Oint TOPICAL Not Given Q6HR [facility] Nitroglycerin 0.4 mg 04/24/17 18:06 Nitrostat SUBLINGUAL Q5M PRN Chest Pain Pantoprazole Sodium 40 mg 04/24/17 22:15 04/24/17 23:17 Protonix PO 40 mg HS KERVIN Administration Pioglitazone HCl 30 mg 04/24/17 22:15 04/24/17 23:17 Actos PO 30 mg HS KERVIN Administration Venlafaxine HCl 225 mg 04/24/17 22:15 04/24/17 23:17 Effexor Xr PO 225 mg HS KERVIN Administration Intake and Output 04/24/17 04/25/17 04/25/17 22:59 06:59 14:59 Output Total 1 1 Balance -1 -1 Output: Urine 1 1 Other: Voiding Method Toilet # Voids 3 Weight 89.3 kg 89.3 kg 04/24/17 16:03 04/25/17 01:36 Assessment and Plan Assessment: ASSESSMENT 1. Chest pain, pleuritic. Normal EKG and negative cardiac enzymes. Patient has not had an acute coronary event. 2. Diabetes mellitus, uncontrolled 3. Dyslipidemia PLAN Obtain 2-D echocardiogram and Doppler study to assess cardiac structure and function. One-time dose of colchicine 0.6 mg to see if this holds with the pain. This could be pericarditis. Add Zetia 10 mg, losartan 50 mg and aspirin 81 mg daily to his daily regimen. He can follow up with Dr. Epperson in 6-8 weeks to evaluate new medication and possible further cardiac work-up. Thank you kindly for this consultation. Nurse Practitioner note has been reviewed, I agree with a documented findings and plan of care. Patient was seen and examined.
--- NOTE | 2017-04-25 11:36 | ECHOF ---
Referral Reason:chest pain MEASUREMENTS -------- HEIGHT: 172.7 cm WEIGHT: 88.9 kg BP: 140/6 RVIDd: 3.1 cm (< 3.3) IVSd: 1.1 cm (0.6 - 1.1) LVIDd: 4.6 cm (3.9 - 5.3) LVPWd: 1.3 cm (0.6 - 1.1) IVSs: 1.5 cm LVIDs: 3.6 cm LVPWs: 1.7 cm LA Diam: 3.5 cm (2.7 - 3.8) LAESV Index (A-L): 33.38 ml/m Ao Diam: 3.5 cm (2.0 - 3.7) AV Cusp: 2.1 cm (1.5 - 2.6) LA Diam: 4.2 cm (2.7 - 3.8) MV EXCURSION: 26.030 mm (> 18.000) MV EF SLOPE: 198 mm/s (70 - 150) EPSS: 0.5 cm MV E Kalen: 1.00 m/s MV DecT: 155 ms MV A [place]: 0.81 m/s MV E/A Ratio: 1.23 RAP: 5.00 mmHg RVSP: 38.65 mmHg FINDINGS -------- Sinus rhythm. This was a technically adequate study. The left ventricular size is normal. Left ventricular wall thickness is normal. Overall left vent ricular systolic function is normal with, an EF between 55 - 60 %. The right ventricle is normal in size. Normal LA size by volume 22+/-6 ml/m2. The right atrial size is normal. The aortic valve is trileaflet, and appears structurally normal. No aortic stenosis or regurgitation. Mild mitral annular calcification present. Mild mitral regurgitation is present. Mild tricuspid regurgitation present. There is borderline pulmonary artery hypertension. The righ t ventricular systolic pressure, as measured by Doppler, is 38.65mmHg. Trace/mild (physiologic) pulmonic regurgitation. The aortic root size is normal. There is no pericardial effusion. CONCLUSIONS -------- 1. The left ventricular size is normal. 2. Left ventricular wall thickness is normal. 3. Overall left ventricular systolic function is normal with, an EF between 55 - 60 %. 4. The aortic valve is trileaflet, and appears structurally normal. No aortic stenosis or regurgitati on. 5. Mild mitral annular calcification present. 6. Mild mitral regurgitation is present. 7. Mild tricuspid regurgitation present. 8. There is borderline pulmonary artery hypertension. 9. The right ventricular systolic pressure, as measured by Doppler, is 38.65mmHg. 10. Trace/mild (physiologic) pulmonic regurgitation. 11. The aortic root size is normal. 12. There is no pericardial effusion. CLIENT EVALUATOR: Josee Muñoz RDCS
[2017-04-25 11:57] LABS: Glucose,Whole Blood 183 mg/dL (75-99)
[2017-04-25 12:12] VITALS: BP 153/93; PULSE 83; RESP 18; TEMP 98.1
[2017-04-25 17:40] LABS: Hemoglobin A1C 13.6 % (4.0-6.0)
--- NOTE | 2017-04-29 14:49 | P.HPIM ---
History of Present Illness H&P Date: 04/25/17 Chief Complaint: Chest pain HISTORY AND PHYSICAL AND DISCHARGE SUMMARY: This is a 46-year-old male patient of Dr. Wilson with past medical history of diabetes mellitus type 2, insulin requiring, diabetic neuropathy, gastroparesis. Patient states that he came in with chest pain but then his blood sugars were so high that they decided to keep him and he was placed in the observation unit. Regarding his chest pain. He states that it felt like some he was standing on his chest and going on for 4 days. He denies having any cough, nasal congestion or drainage. No nausea, vomiting, dysuria, diarrhea. He denies any recent heavy lifting or work related injury. He denies any shortness of breath. He had pain with deep inspiration. He denies any weakness. He denies any sore throat. He states his chest pain has improved since he came in. Troponins have been negative on 3 draws. Initial blood sugar was 554 and at the time of discharge 164 and hemoglobin came back at 13.6. Acetone was negative. Triglycerides 210, cholesterol 184, LDL 102, HDL 40. Chest x-ray shows no active cardiopulmonary disease. Patient was placed in the observation unit and seen by cardiology. Losartan, Zetia and colchicine were added with plan to follow up in 6-8 weeks. Echocardiogram revealed EF of 55-60%, mild mitral regurgitation, mild tricuspid regurgitation, borderline pulmonary artery hypertension. Patient was discharged home in stable condition. Review of Systems All systems: negative Constitutional: Denies chills, Denies fever Eyes: denies blurred vision, denies pain Ears, nose, mouth and throat: Denies headache, Denies sore throat Cardiovascular: Reports chest pain, Denies decreased exercise tolerance, Denies dyspnea on exertion, Denies edema, Denies leg edema, Denies lightheadedness, Denies shortness of breath, Denies syncope Respiratory: Denies cough, Denies cough with sputum, Denies dyspnea, Denies excessive sputum, Denies hemoptysis, Denies home oxygen Gastrointestinal: Denies abdominal pain, Denies diarrhea, Denies nausea, Denies vomiting Genitourinary: Denies dysuria Musculoskeletal: Denies myalgias Integumentary: Denies pruritus, Denies rash Neurological: Denies numbness, Denies weakness Psychiatric: Denies anxiety, Denies depression Endocrine: Denies fatigue, Denies weight change Past Medical History Past Medical History: Diabetes Mellitus Additional Past Medical History / Comment(s): Diabetes mellitus type 2 insulin requiring, diabetic neuropathy, diabetic gastroparesis, manolo cataracts History of Any Multi-Drug Resistant Organisms: MRSA Date of last positivie culture/infection: 04/22/16 MDRO Source:: Right Hand Past Surgical History: No Surgical Hx Reported Additional Past Surgical History / Comment(s): Colonscopy, right hand I and D Past Anesthesia/Blood Transfusion Reactions: No Reported Reaction Past Psychological History: Anxiety, Depression Smoking Status: Never smoker Past Alcohol Use History: None Reported Additional Past Alcohol Use History / Comment(s): Patient is a lifelong nonsmoker. He lives alone. Past Drug Use History: None Reported - Past Family History Mother Family Medical History: Diabetes Mellitus Additional Family Medical History / Comment(s): Mother is alive at age 61 with history of diabetes. Patient does not have any contact with his father. Brother(s) Additional Family Medical History / Comment(s): Patient has 2 brothers and one has history of diabetes and one has no major medical problems. Patient does not have any sisters. Patient does not have any children. Medications and Allergies Home Medications Medication Instructions Recorded Confirmed Type Atorvastatin [Lipitor] 40 mg PO HS 09/04/16 04/24/17 History Venlafaxine HCl [Venlafaxine HCl 225 mg PO HS 09/04/16 04/24/17 History ER] Gabapentin [Neurontin] 400 mg PO HS 03/05/17 04/24/17 History HYDROcodone/APAP 7.5-325MG [[place] 1 tab PO Q6HR PRN 03/05/17 04/24/17 History 7.5-325] INSULIN LISPRO (humaLOG) [humaLOG] 10 units SQ AC-TID 03/05/17 04/24/17 History INSULIN LISPRO (humaLOG) [humaLOG] See Protocol SQ AC-TID PRN 03/05/17 04/24/17 History Omeprazole 40 mg PO HS 03/05/17 04/24/17 History Pioglitazone [Actos] 30 mg PO HS 03/05/17 04/24/17 History buPROPion HCL [buPROPion HCL SR] 150 mg PO BID 03/05/17 04/24/17 History Insulin Glargine [Lantus] 40 unit SQ HS 04/24/17 04/24/17 History Aspirin 325 mg PO DAILY tab 04/25/17 Rx Ezetimibe [Zetia] 10 mg PO DAILY #30 tab 04/25/17 Rx Ibuprofen 400 mg PO TID PRN #60 tablet 04/25/17 Rx Losartan [Cozaar] 50 mg PO DAILY #30 tab 04/25/17 Rx Allergies Allergy/AdvReac Type Severity Reaction Status Date / Time lactose AdvReac Nausea & Verified 04/24/17 15:55 Vomiting & Diarrhea Physical Exam Vitals: Vital Signs Temp Pulse Pulse Resp BP BP Pulse Ox 04/25/17 12:00 98.1 F 83 18 153/93 95 04/25/17 09:05 98 04/25/17 08:00 97.7 F 79 16 161/99 100 04/25/17 04:00 97.9 F 77 16 151/83 100 04/25/17 00:00 98.2 F 82 16 141/80 98 04/24/17 21:17 97.8 F 77 18 159/94 95 04/24/17 19:50 97.8 F 86 18 151/85 99 04/24/17 18:30 98.0 F 83 18 143/93 100 04/24/17 16:28 94 18 110/60 97 04/24/17 16:23 96 18 122/66 98 04/24/17 16:18 97 18 138/97 96 04/24/17 15:24 97.3 F L 103 H 17 143/86 98 Intake and Output 04/24/17 04/25/17 04/25/17 22:59 06:59 14:59 Intake Total 320 Output Total 1 1 Balance -1 -1 320 Intake: Oral 320 Output: Urine 1 1 Other: Voiding Method Toilet Toilet # Voids 3 Weight 89.3 kg 89.3 kg 89.3 kg Patient Weight 04/26/17 06:59 Weight 89.3 kg Gen: This is a 46-year-old male. He is sitting up in bed and appears to be in no acute distress. HEENT: Head is atraumatic, normocephalic. Pupils equal, round. Sclerae is anicteric. Conjunctiva pink. Mucous members of the mouth are moist. NECK: Supple. No JVD. No lymphadenopathy. No thyromegaly. LUNGS: Clear to auscultation. No wheezes or rhonchi. No intercostal retractions. HEART: Regular rate and rhythm. No murmur. ABDOMEN: Soft. Bowel sounds are present. No masses. No tenderness. EXTREMITIES: No pedal edema. No calf tenderness. NEUROLOGICAL: Patient is awake, alert and oriented x3. Cranial nerves 2 through 12 are grossly intact. Results CBC & Chem 7: 04/24/17 16:03 04/25/17 01:36 Labs: Abnormal Lab Results - Last 24 Hours (Table) 04/24/17 04/24/17 04/24/17 Range/Units 16:03 16:03 16:40 RBC 4.13 L (4.30-5.90) m/uL Hgb 11.3 L (13.0-17.5) gm/dL Hct 35.5 L (39.0-53.0) % Sodium 135 L (137-145) mmol/L Chloride 96 L (98-107) mmol/L Carbon Dioxide (22-30) mmol/L BUN 27 H (9-20) mg/dL Creatinine 1.29 H (0.66-1.25) mg/dL Glucose 554 H* (74-99) mg/dL POC Glucose (mg/dL) 510 H (75-99) mg/dL Alkaline Phosphatase 135 H (38-126) U/L Total Creatine Kinase (55-170) U/L Triglycerides (<150) mg/dL LDL Cholesterol, Calc (0-99) mg/dL 04/24/17 04/24/17 04/24/17 Range/Units 18:27 19:30 21:05 RBC (4.30-5.90) m/uL Hgb (13.0-17.5) gm/dL Hct (39.0-53.0) % Sodium (137-145) mmol/L Chloride (98-107) mmol/L Carbon Dioxide (22-30) mmol/L BUN (9-20) mg/dL Creatinine (0.66-1.25) mg/dL Glucose (74-99) mg/dL POC Glucose (mg/dL) 467 H 375 H 268 H (75-99) mg/dL Alkaline Phosphatase (38-126) U/L Total Creatine Kinase (55-170) U/L Triglycerides (<150) mg/dL LDL Cholesterol, Calc (0-99) mg/dL 04/24/17 04/25/17 04/25/17 Range/Units 21:22 01:33 01:36 RBC (4.30-5.90) m/uL Hgb (13.0-17.5) gm/dL Hct (39.0-53.0) % Sodium (137-145) mmol/L Chloride (98-107) mmol/L Carbon Dioxide 32 H (22-30) mmol/L BUN 26 H 25 H (9-20) mg/dL Creatinine (0.66-1.25) mg/dL Glucose 257 H 164 H (74-99) mg/dL POC Glucose (mg/dL) 150 H (75-99) mg/dL Alkaline Phosphatase (38-126) U/L Total Creatine Kinase (55-170) U/L Triglycerides (<150) mg/dL LDL Cholesterol, Calc (0-99) mg/dL 04/25/17 04/25/17 04/25/17 Range/Units 05:20 05:20 07:13 RBC (4.30-5.90) m/uL Hgb (13.0-17.5) gm/dL Hct (39.0-53.0) % Sodium (137-145) mmol/L Chloride (98-107) mmol/L Carbon Dioxide (22-30) mmol/L BUN (9-20) mg/dL Creatinine (0.66-1.25) mg/dL Glucose (74-99) mg/dL POC Glucose (mg/dL) 244 H (75-99) mg/dL Alkaline Phosphatase (38-126) U/L Total Creatine Kinase 49 L (55-170) U/L Triglycerides 211 H (<150) mg/dL LDL Cholesterol, Calc 102 H (0-99) mg/dL 04/25/17 Range/Units 11:55 RBC (4.30-5.90) m/uL Hgb (13.0-17.5) gm/dL Hct (39.0-53.0) % Sodium (137-145) mmol/L Chloride (98-107) mmol/L Carbon Dioxide (22-30) mmol/L BUN (9-20) mg/dL Creatinine (0.66-1.25) mg/dL Glucose (74-99) mg/dL POC Glucose (mg/dL) 183 H (75-99) mg/dL Alkaline Phosphatase (38-126) U/L Total Creatine Kinase (55-170) U/L Triglycerides (<150) mg/dL LDL Cholesterol, Calc (0-99) mg/dL Thrombosis Risk Factor Assmnt - DVT/VTE Prophylaxis DVT/VTE Prophylaxis: Pharmacologic Prophylaxis ordered - Choose All That Apply Each Factor Represents 1 point: Age 41-60 years, Obesity (BMI >25) Thrombosis Risk Factor Assessment Total Risk Factor Score: 2 Thrombosis Risk Factor Assessment Level: Low Risk Assessment and Plan Plan: 1. Chest pain, pleuritic type. 2. Diabetes mellitus type 2, insulin requiring, uncontrolled. 3. Hyperlipidemia. 4. Hypertension. Patient placed on the observation unit. Discharge plan: Return home Discharge Medication List Atorvastatin [Lipitor] 40 mg PO HS 09/04/16 [History] Venlafaxine HCl [Venlafaxine HCl ER] 225 mg PO HS 09/04/16 [History] Gabapentin [Neurontin] 400 mg PO HS 03/05/17 [History] HYDROcodone/APAP 7.5-325MG [[place] 7.5-325] 1 tab PO Q6HR PRN 03/05/17 [History] INSULIN LISPRO (humaLOG) [humaLOG] 10 units SQ AC-TID 03/05/17 [History] INSULIN LISPRO (humaLOG) [humaLOG] See Protocol SQ AC-TID PRN 03/05/17 [History] Omeprazole 40 mg PO HS 03/05/17 [History] Pioglitazone [Actos] 30 mg PO HS 03/05/17 [History] buPROPion HCL [buPROPion HCL SR] 150 mg PO BID 03/05/17 [History] Insulin Glargine [Lantus] 40 unit SQ HS 04/24/17 [History] Aspirin 325 mg PO DAILY tab 04/25/17 [Rx] Ezetimibe [Zetia] 10 mg PO DAILY #30 tab 04/25/17 [Rx] Ibuprofen 400 mg PO TID PRN #60 tablet 04/25/17 [Rx] Losartan [Cozaar] 50 mg PO DAILY #30 tab 04/25/17 [Rx] Impression and plan of care have been directed as dictated by the signing physician. Melvi Vieyra nurse practitioner acting as scribe for signing physician.
== END 2017-04-25 13:25 | disposition home or self-care (01) ==
LOC: EC 15:22 → 3OBS 18:06
PROVIDERS: ADMIT Internal Medicine; ATTEND Internal Medicine
DX: R07.81 Pleurodynia (principal); E11.42 Type 2 diabetes mellitus with diabetic polyneuropathy; E11.40 Type 2 diabetes mellitus with diabetic neuropathy, unspecified; E11.65 Type 2 diabetes mellitus with hyperglycemia; K31.84 Gastroparesis; E78.5 Hyperlipidemia, unspecified; I10 Essential (primary) hypertension; E66.9 Obesity, unspecified; Z68.29 Body mass index [BMI] 29.0-29.9, adult; Z91.048 Other nonmedicinal substance allergy status; F41.9 Anxiety disorder, unspecified; F32.9 Major depressive disorder, single episode, unspecified; Z86.14 Personal history of Methicillin resistant Staphylococcus aureus infection; Z79.899 Other long term (current) drug therapy; Z79.4 Long term (current) use of insulin; Z79.84 Long term (current) use of oral hypoglycemic drugs; Z79.82 Long term (current) use of aspirin
CPT/HCPCS: 99285; 96361 ×3; 96374; 36415; 93005; 93306; 85379; 83880; 80051 ×2; 80061; 80053; 82565 ×2; 82550 ×2; 82553 ×2; 82009; 83735; 84100 ×2; 82947 ×2; 84520 ×2; 84484 ×2; 85025; 85610; 85730; 83036; 71046; G0378 ×2; S0106 ×2; J3480

== ENCOUNTER 2017-09-24 15:36 | Emergency (ER) | payer OTHER ==
[2017-09-24 15:43] VITALS: BP 151/94; PULSE 91; RESP 18; TEMP 98.3
--- NOTE | 2017-09-24 17:00 | US ---
EXAMINATION TYPE: US venous doppler duplex UE RT DATE OF EXAM: 09/24/2017 COMPARISON: NONE CLINICAL HISTORY: Pain. Pt states right arm swelling, no known prior DVT SIDE PERFORMED: Right Grayscale, color doppler, spectral doppler imaging performed of the deep veins of the right upper ext remity. There is normal flow, compressibility and vascular waveforms. Right Arm: Negative for DVT IMPRESSION: No sonographic evidence of deep venous thrombosis within the right upper extremity.
[2017-09-24] MEDS ORDERED: SULFAMETHOX-TMP 800-160MG 1 EACH TAB PO STA (17:16)
--- NOTE | 2017-09-24 17:21 | ED ---
General Adult HPI - General Chief complaint: Extremity Problem,Nontraumatic Stated complaint: arm swelling Time Seen by Provider: 09/24/17 15:48 Source: patient, RN notes reviewed Mode of arrival: ambulatory Limitations: no limitations - History of Present Illness Initial comments: 46-year-old male presents to the emergency department for a chief complaint of right arm swelling 3 days. Patient denies any injuries. Patient states it is becoming painful. Patient denies fevers or chills at home. Patient denies any known bug bites or abrasions in the skin. Patient denies a history of MRSA. Patient has no other complaints at this time including shortness of breath, chest pain, abdominal pain, nausea or vomiting, headache, or visual changes. - Related Data Home Medications Medication Instructions Recorded Confirmed Atorvastatin [Lipitor] 40 mg PO HS 09/04/16 09/24/17 Venlafaxine HCl [Venlafaxine HCl 225 mg PO HS 09/04/16 09/24/17 ER] HYDROcodone/APAP 7.5-325MG [[place] 1 tab PO TID 03/05/17 09/24/17 7.5-325] INSULIN LISPRO (humaLOG) [humaLOG] 10 units SQ AC-TID 03/05/17 09/24/17 INSULIN LISPRO (humaLOG) [humaLOG] See Protocol SQ AC-TID PRN 03/05/17 09/24/17 Omeprazole 40 mg PO HS 03/05/17 09/24/17 Pioglitazone [Actos] 30 mg PO HS 03/05/17 09/24/17 buPROPion HCL [buPROPion HCL SR] 150 mg PO BID 03/05/17 09/24/17 Insulin Glargine [Lantus] 80 unit SQ HS 04/24/17 09/24/17 Ezetimibe [Zetia] 10 mg PO HS 09/24/17 09/24/17 Gabapentin [Neurontin] 800 mg PO HS 09/24/17 09/24/17 Losartan [Cozaar] 50 mg PO HS 09/24/17 09/24/17 Previous Rx's Medication Instructions Recorded Sulfamethox-Tmp 800-160Mg [Bactrim 2 tab PO Q12HR 10 Days #40 tab 09/24/17 DS 800-160 mg] Allergies Allergy/AdvReac Type Severity Reaction Status Date / Time lactose AdvReac Nausea & Verified 09/24/17 16:19 Vomiting & Diarrhea Review of Systems ROS Statement: Those systems with pertinent positive or pertinent negative responses have been documented in the HPI. ROS Other: All systems not noted in ROS Statement are negative. Past Medical History Past Medical History: Diabetes Mellitus, Hypertension Additional Past Medical History / Comment(s): neuropathy carpel tunnel borderline bipolar History of Any Multi-Drug Resistant Organisms: MRSA Date of last positivie culture/infection: 04/22/16 MDRO Source:: Right Hand Past Surgical History: Orthopedic Surgery Additional Past Surgical History / Comment(s): Colonscopy eye cataract surg Past Anesthesia/Blood Transfusion Reactions: No Reported Reaction Past Psychological History: Anxiety, Bipolar, Depression Smoking Status: Never smoker Past Alcohol Use History: None Reported Past Drug Use History: None Reported - Past Family History Mother Family Medical History: Diabetes Mellitus Additional Family Medical History / Comment(s): Mother is alive at age 61 with history of diabetes. Patient does not have any contact with his father. Brother(s) Additional Family Medical History / Comment(s): Patient has 2 brothers and one has history of diabetes and one has no major medical problems. Patient does not have any sisters. Patient does not have any children. General Exam Limitations: no limitations General appearance: alert, in no apparent distress Head exam: Present: atraumatic, normocephalic, normal inspection Eye exam: Present: normal appearance ENT exam: Present: normal exam, mucous membranes moist Neck exam: Present: normal inspection. Absent: tenderness, meningismus, lymphadenopathy Respiratory exam: Present: normal lung sounds bilaterally. Absent: respiratory distress, wheezes, rales, rhonchi, stridor Cardiovascular Exam: Present: regular rate, normal rhythm, normal heart sounds. Absent: systolic murmur, diastolic murmur, rubs, gallop, clicks Extremities exam: Present: full ROM (Full range of motion of the right upper extremity including wrist elbow and shoulder.), tenderness (Mild tenderness around the medial elbow), normal capillary refill (Refill less than 2 seconds and radial pulse 2+), other (Patient has erythema on the medial aspect of the right arm from the middle of the forearm to the middle of the upper arm. No abscess is noted. No streaking redness. No excoriations.). Absent: pedal edema Course Vital Signs 09/24/17 15:39 Temperature 98.3 F Pulse Rate 91 Respiratory 18 Rate Blood Pressure 151/94 O2 Sat by Pulse 99 Oximetry Medical Decision Making - Medical Decision Making 46-year-old male presents to the emergency department for a chief complaint of redness and swelling of the right arm x 3 days. Patient denies any known breaks in the skin. Patient denies fevers or chills. On exam neurovascular intact. There is mild, light erythema of the medial right arm extending from the middle of the forearm to the middle of the upper arm. No abscess is noted. Ultrasound ruled out a DVT. Patient likely has a cellulitis of the right upper arm. Patient was given Bactrim in the emergency department. He will take double strength Bactrim for 10 days. He was educated to [place] the redness with a black marker and watch for it to spread over that and return if that occurs. He will return if he has any other worsening symptoms or fevers. Otherwise he will follow-up with primary care in 1-2 days. Disposition Clinical Impression: Cellulitis Disposition: HOME SELF-CARE Condition: Good Instructions: Cellulitis (ED) Additional Instructions: Please take antibiotic as directed. Please take Motrin for pain. Use a black marker to trace outline of the redness and watch for it to spread past the gabrielle. If the spreading continues or you notice streaking redness on the arm return to the emergency department. If you notice any other worsening symptoms return as well. Otherwise follow-up with primary care provider in one to 2 days. Prescriptions: Sulfamethox-Tmp 800-160Mg [Bactrim DS 800-160 mg] 2 tab PO Q12HR 10 Days #40 tab Is patient prescribed a controlled substance at d/c from ED?: No Referrals: Justine Guillen MD [Primary Care Provider] - 1-2 days Time of Disposition: 17:19
== END 2017-09-24 17:40 | disposition home or self-care (01) ==
LOC: EC 15:36
DX: L03.113 Cellulitis of right upper limb (principal); I10 Essential (primary) hypertension; F41.9 Anxiety disorder, unspecified; F31.9 Bipolar disorder, unspecified; E11.40 Type 2 diabetes mellitus with diabetic neuropathy, unspecified; Z86.14 Personal history of Methicillin resistant Staphylococcus aureus infection; Z79.4 Long term (current) use of insulin; Z79.899 Other long term (current) drug therapy; Z91.011 Allergy to milk products
CPT/HCPCS: 99283

== ENCOUNTER → 2018-03-19 | Outpatient (CLI) | payer OTHER ==
[~2018-03-19] MED LIST: DOBUTamine DRIP for NUC MED 500 MG in DEXTROSE/WATER 1 250ML.BAG IV ONE
--- NOTE | 2018-03-19 18:58 | EST ---
EXERCISE STRESS AGE: 47 SEX: M HT: 5 foot 8 WT: 230 PROTOCOL: Dobutamine STAGE: III DURATION OF EXERCISE: 11:30 HEART RATE REST: 93 BLOOD PRESSURE REST: 130/72 MAXIMUM HEART RATE ACHIEVED: 150 MAXIMUM BLOOD PRESSURE: 189/68 85% MPHR: 148 100% MPHR: 174 INDICATIONS: Abnormal EKG CLINICAL INFORMATION: Baseline rhythm is sinus mechanism, rate of 92, normal axis and intervals, poor R progression V1 to V3. Baseline blood pressure 130/72 mmHg. Patient received an infusion of dobutamine per protocol. Peak rate 150 beats per minute, which is equal to 85% maximum predicted heart rate. Peak blood pressure 189/68 mmHg. Electrocardiograph monitoring revealed no evidence of diagnostic ischemic ST deviation. Occasional PVCs were noted. FINDINGS: Baseline echocardiogram revealed normal wall motion. At peak infusion, there was normal wall motion augmentation with no hypokinesis or dyskinesis. CONCLUSION: 1. Normal electrocardiograph response to dobutamine. 2. Normal stress echocardiogram with no evidence of stress-induced ischemia. MMODL / IJN: [id number] /
== END | disposition home or self-care (01) ==
LOC: RADNMMAIN 08:58
PROVIDERS: ATTEND Family Medicine
DX: R94.31 Abnormal electrocardiogram [ECG] [EKG] (principal)
CPT/HCPCS: 93351; J1250

== ENCOUNTER 2018-05-18 16:26 | Emergency (ER) | payer OTHER ==
[2018-05-18 16:35] VITALS: RESP 18
[2018-05-18 16:41] LABS: Glucose,Whole Blood 211 mg/dL (75-99)
--- NOTE | 2018-05-18 17:09 | ED ---
General Adult HPI - General Chief complaint: Dizziness Stated complaint: Lightheaded/vomiting Time Seen by Provider: 05/18/18 17:09 Source: patient, family Mode of arrival: wheelchair Limitations: no limitations - Related Data Home Medications Medication Instructions Recorded Confirmed Atorvastatin [Lipitor] 40 mg PO HS 09/04/16 05/18/18 HYDROcodone/APAP 7.5-325MG [[place] 1 tab PO TID 03/05/17 05/18/18 7.5-325] INSULIN LISPRO (humaLOG) [humaLOG] 10 units SQ AC-TID 03/05/17 05/18/18 Omeprazole 40 mg PO DAILY 03/05/17 05/18/18 Pioglitazone [Actos] 30 mg PO DAILY 03/05/17 05/18/18 buPROPion HCL [buPROPion HCL SR] 150 mg PO BID 03/05/17 05/18/18 Gabapentin [Neurontin] 400 mg PO BID 09/24/17 05/18/18 Insulin Glargine,Hum.rec.anlog 80 unit SQ DAILY 05/18/18 05/18/18 [Basaglar Kwikpen U-100] Testosterone Cypionate 200 mg IM Q28D 05/18/18 05/18/18 [Depo-Testosterone] Venlafaxine HCl [Effexor XR] 150 mg PO DAILY 05/18/18 05/18/18 Previous Rx's Medication Instructions Recorded Meclizine [Antivert] 25 mg PO TID PRN #20 tab 05/18/18 Allergies Allergy/AdvReac Type Severity Reaction Status Date / Time lactose AdvReac Nausea & Verified 05/18/18 17:40 Vomiting & Diarrhea Review of Systems ROS Statement: Those systems with pertinent positive or pertinent negative responses have been documented in the HPI. ROS Other: All systems not noted in ROS Statement are negative. Past Medical History Past Medical History: Diabetes Mellitus Additional Past Medical History / Comment(s): neuropathy carpel tunnel borderline bipolar History of Any Multi-Drug Resistant Organisms: MRSA Date of last positivie culture/infection: 04/22/16 MDRO Source:: Right Hand Past Surgical History: Orthopedic Surgery Additional Past Surgical History / Comment(s): Colonscopy eye cataract surg Past Anesthesia/Blood Transfusion Reactions: No Reported Reaction Past Psychological History: Anxiety, Bipolar, Depression Smoking Status: Never smoker Past Alcohol Use History: None Reported Past Drug Use History: None Reported - Past Family History Mother Family Medical History: Diabetes Mellitus Additional Family Medical History / Comment(s): Mother is alive at age 61 with history of diabetes. Patient does not have any contact with his father. Brother(s) Additional Family Medical History / Comment(s): Patient has 2 brothers and one has history of diabetes and one has no major medical problems. Patient does not have any sisters. Patient does not have any children. General Exam Limitations: no limitations Course Vital Signs 05/18/18 05/18/18 05/18/18 16:30 16:35 17:35 Temperature 97.5 F L Pulse Rate 85 85 86 Respiratory 18 18 18 Rate Blood Pressure 182/116 169/107 169/104 O2 Sat by Pulse 99 96 97 Oximetry 05/18/18 18:00 Temperature Pulse Rate 85 Respiratory 18 Rate Blood Pressure 154/106 O2 Sat by Pulse 96 Oximetry Medical Decision Making - Medical Decision Making Dictation was produced using [employer] dictation software. please excuse any grammatical, word or spelling errors. Chief Complaint: 47-year-old male with past medical history diabetes and hypertension presents with 1 week of dizziness. History of Present Illness: A 47-year-old male he presents here with his mother. Patient has been feeling dizzy for approximately one week. Patient states his symptoms are worse with various head movements. Patient also complains of worsening dizziness with standing from a supine position. Patient has multiple comorbidities with diabetes dyslipidemia. Patient also takes exogenous testosterone. Patient denies any nausea, vomiting. Denies any runny nose or throat. The ROS documented in this emergency department record has been reviewed and confirmed by me. Those systems with pertinent positive or negative responses have been documented in the HPI. All other systems are other negative and/or noncontributory. PHYSICAL EXAM: General Impression: Alert and oriented x3, acute distress secondary to nausea HEENT: Normocephalic atraumatic, extra-ocular movements intact, pupils equal and reactive to light bilaterally, mucous membranes moist. Cardiovascular: Heart regular rate and rhythm, S1&S2 audible, no murmurs, rubs or gallops Chest: Lungs clear to auscultation bilaterally, no rhonchi, no wheeze, no rales Abdomen: Bowel sounds present, abdomen soft, non-tender, non-distended, no organomegaly Musculoskeletal: Pulses present and equal in all extremities, no peripheral edema Motor: Power 5/5 bilaterally, no focal deficits noted Neurological: CN II-XII grossly intact, no focal motor or sensory deficits noted , normal finger to nose, normal heel manriquez. Skin: Intact with no visualized rashes Psych: Normal affect and mood ED course: 47-year-old male presents with 7 days of dizziness. Patient presents with mother. Mother reports that patient does not drink enough water. He only urinates twice a day as upon arrival shows blood pressure 182/116, worse vital signs within acceptable limits.Laboratory evaluation obtained. CBC , metabolic panel unremarkable. Patient has slight bump in renal markers. Patient's glucose is 209. Urinalysis unremarkable. Patient's symptoms likely secondary to peripheral vertigo. Patient given meclizine and intravenous fluids. Patient told of the significance of proper hydration. Still to use Antivert when necessary vertiginous symptoms. Patient reevaluated found to be improved. Must follow-up with his primary care physician for outpatient management of his symptoms. EKG interpretation: Ventricular rate 83, sinus rhythm, [place] interval 142, QRS 84, QTC 432. No [place] prolongation, no QTC prolongation, no ST or T-wave changes noted. Overall, this EKG is unremarkable - Lab Data Result diagrams: 05/18/18 17:00 05/18/18 17:00 Lab Results 05/18/18 05/18/18 05/18/18 Range/Units 16:34 17:00 17:00 WBC 7.6 (3.8-10.6) k/uL RBC 4.52 (4.30-5.90) m/uL Hgb 12.1 L (13.0-17.5) gm/dL Hct 37.5 L (39.0-53.0) % MCV 83.0 (80.0-100.0) fL MCH 26.9 (25.0-35.0) pg MCHC 32.4 (31.0-37.0) g/dL RDW 13.6 (11.5-15.5) % Plt Count 304 (150-450) k/uL Neutrophils % 73 % Lymphocytes % 19 % Monocytes % 4 % Eosinophils % 2 % Basophils % 0 % Neutrophils # 5.6 (1.3-7.7) k/uL Lymphocytes # 1.5 (1.0-4.8) k/uL Monocytes # 0.3 (0-1.0) k/uL Eosinophils # 0.2 (0-0.7) k/uL Basophils # 0.0 (0-0.2) k/uL Sodium 141 (137-145) mmol/L Potassium 4.6 (3.5-5.1) mmol/L Chloride 102 (98-107) mmol/L Carbon Dioxide 30 (22-30) mmol/L Anion Gap 9 mmol/L BUN 28 H (9-20) mg/dL Creatinine 1.48 H (0.66-1.25) mg/dL Est GFR (CKD-EPI)AfAm 65 (>60 ml/min/1.73 sqM) Est GFR (CKD-EPI)NonAf 56 (>60 ml/min/1.73 sqM) Glucose 209 H (74-99) mg/dL POC Glucose (mg/dL) 211 H (75-99) mg/dL POC Glu Hospital Admissions Officer ID Fara Luis Calcium 9.3 (8.4-10.2) mg/dL Magnesium 1.8 (1.6-2.3) mg/dL Urine Color Urine Appearance (Clear) Urine pH (5.0-8.0) Ur Specific Gile (1.001-1.035) Urine Protein (Negative) Urine Glucose (UA) (Negative) Urine Ketones (Negative) Urine Blood (Negative) Urine Nitrite (Negative) Urine Bilirubin (Negative) Urine Urobilinogen (<2.0) mg/dL Ur Leukocyte Esterase (Negative) Urine RBC (0-5) /hpf Urine WBC (0-5) /hpf Urine Mucus (None) /hpf 05/18/18 Range/Units 18:15 WBC (3.8-10.6) k/uL RBC (4.30-5.90) m/uL Hgb (13.0-17.5) gm/dL Hct (39.0-53.0) % MCV (80.0-100.0) fL MCH (25.0-35.0) pg MCHC (31.0-37.0) g/dL RDW (11.5-15.5) % Plt Count (150-450) k/uL Neutrophils % % Lymphocytes % % Monocytes % % Eosinophils % % Basophils % % Neutrophils # (1.3-7.7) k/uL Lymphocytes # (1.0-4.8) k/uL Monocytes # (0-1.0) k/uL Eosinophils # (0-0.7) k/uL Basophils # (0-0.2) k/uL Sodium (137-145) mmol/L Potassium (3.5-5.1) mmol/L Chloride (98-107) mmol/L Carbon Dioxide (22-30) mmol/L Anion Gap mmol/L BUN (9-20) mg/dL Creatinine (0.66-1.25) mg/dL Est GFR (CKD-EPI)AfAm (>60 ml/min/1.73 sqM) Est GFR (CKD-EPI)NonAf (>60 ml/min/1.73 sqM) Glucose (74-99) mg/dL POC Glucose (mg/dL) (75-99) mg/dL POC Glu Hospital Admissions Officer ID Calcium (8.4-10.2) mg/dL Magnesium (1.6-2.3) mg/dL Urine Color Yellow Urine Appearance Clear (Clear) Urine pH 7.0 (5.0-8.0) Ur Specific [place] 1.016 (1.001-1.035) Urine Protein 1+ H (Negative) Urine Glucose (UA) 4+ H (Negative) Urine Ketones Negative (Negative) Urine Blood Negative (Negative) Urine Nitrite Negative (Negative) Urine Bilirubin Negative (Negative) Urine Urobilinogen 2.0 (<2.0) mg/dL Ur Leukocyte Esterase Negative (Negative) Urine RBC 1 (0-5) /hpf Urine WBC 3 (0-5) /hpf Urine Mucus Rare H (None) /hpf Disposition Clinical Impression: Peripheral vertigo Disposition: HOME SELF-CARE Condition: Good Instructions (If sedation given, give patient instructions): Dizziness (ED) Prescriptions: Meclizine [Antivert] 25 mg PO TID PRN #20 tab PRN Reason: Vertigo Is patient prescribed a controlled substance at d/c from ED?: No Referrals: Justine Guillen MD [Primary Care Provider] - 1-2 days Time of Disposition: 19:04
[2018-05-18] MEDS ORDERED: MECLIZINE 12.5 MG TAB PO STA (17:26)
[2018-05-18 17:37] LABS: Basophils % (A) 0 %; Eosinophils # (A) 0.2 k/uL (0-0.7); Eosinophils % (A) 2 %; HCT 37.5 % (39.0-53.0); HGB 12.1 gm/dL (13.0-17.5); Lymphocytes # (A) 1.5 k/uL (1.0-4.8); Lymphocytes % (A) 19 %; MCH 26.9 pg (25.0-35.0); MCHC 32.4 g/dL (31.0-37.0); Mean Platelet Volume 6.4; Monocytes # (A) 0.3 k/uL (0-1.0); Monocytes % (A) 4 %; Neutrophils # (A) 5.6 k/uL (1.3-7.7); Neutrophils % (A) 73 %; Platelet Count 304 k/uL (150-450); RBC 4.52 m/uL (4.30-5.90); RDW 13.6 % (11.5-15.5); WBC 7.6 k/uL (3.8-10.6)
[2018-05-18 17:46] LABS: Calcium 9.3 mg/dL (8.4-10.2); Magnesium 1.8 mg/dL (1.6-2.3); Potassium 4.6 mmol/L (3.5-5.1)
[2018-05-18 18:34] LABS: Appearance,Urine Clear (Clear); Bilirubin,Urine Negative (Negative); Blood,Urine Negative (Negative); Color,Urine Yellow; Glucose,Urine (UA) 4+ (Negative); Ketones,Urine Negative (Negative); Leukocyte Esterase,Urine Negative (Negative); Mucus,Urine Rare /hpf; Nitrite,Urine Negative (Negative); Protein,Urine 1+ (Negative); RBC,Urine 1 /hpf (0-5); Specific Gravity,Urine 1.016 (1.001-1.035)
[2018-05-18] MEDS ORDERED: SODIUM CHLORIDE 0.9% 1,000 ML IV STA (18:35)
[2018-05-18 19:57] VITALS: BP 172/105; PULSE 79; TEMP 97.8
== END 2018-05-18 19:57 | disposition home or self-care (01) ==
LOC: EC 16:26
DX: H81.399 Other peripheral vertigo, unspecified ear (principal); E11.9 Type 2 diabetes mellitus without complications; E78.5 Hyperlipidemia, unspecified; G62.9 Polyneuropathy, unspecified; F31.9 Bipolar disorder, unspecified; F41.9 Anxiety disorder, unspecified; Z86.14 Personal history of Methicillin resistant Staphylococcus aureus infection; Z98.890 Other specified postprocedural states; Z79.4 Long term (current) use of insulin; Z79.899 Other long term (current) drug therapy; Z91.011 Allergy to milk products
CPT/HCPCS: 36415; 80048; 81001; 83735; 85025; 93005; 96360; 99284

== ENCOUNTER 2019-03-13 17:51 | Inpatient (IN) | payer OTHER ==
[2019-03-13 18:03] LABS: Glucose,Whole Blood 248 mg/dL (75-99)
[2019-03-13] MEDS ORDERED: SODIUM CHLORIDE 0.9% 500 ML 500 ML IV STA (18:21)
[2019-03-13] MEDS ORDERED: MECLIZINE 12.5 MG TAB PO STA (18:21)
[2019-03-13] MEDS ORDERED: ONDANSETRON 4 MG/2 ML VIAL IVP STA (18:21)
[2019-03-13] MEDS ORDERED: SODIUM CHLORIDE 0.9% 1,000 ML IV STA (18:21)
[2019-03-13 18:43] LABS: Basophils % (A) 0 %; Eosinophils # (A) 0.2 k/uL (0-0.7); Eosinophils % (A) 2 %; HCT 34.9 % (39.0-53.0); HGB 12.1 gm/dL (13.0-17.5); Lymphocytes # (A) 1.6 k/uL (1.0-4.8); Lymphocytes % (A) 19 %; MCH 28.5 pg (25.0-35.0); MCHC 34.7 g/dL (31.0-37.0); Mean Platelet Volume 5.6; Monocytes # (A) 0.4 k/uL (0-1.0); Monocytes % (A) 4 %; Neutrophils # (A) 6.2 k/uL (1.3-7.7); Neutrophils % (A) 73 %; Platelet Count 303 k/uL (150-450); RBC 4.26 m/uL (4.30-5.90); RDW 13.4 % (11.5-15.5); WBC 8.5 k/uL (3.8-10.6)
[2019-03-13 18:52] LABS: Potassium 4.8 mmol/L (3.5-5.1)
[2019-03-13 18:53] LABS: Albumin 4.1 g/dL (3.5-5.0); Calcium 9.6 mg/dL (8.4-10.2); Total Bilirubin 0.4 mg/dL (0.2-1.3); Total Protein 7.1 g/dL (6.3-8.2)
--- NOTE | 2019-03-13 19:09 | ED ---
Dizziness HPI - General Chief Complaint: Dizziness Stated Complaint: Dizzy, Vomiting, Hyperglycemia Time Seen by Provider: 03/13/19 18:05 Source: patient Mode of arrival: wheelchair Limitations: no limitations - History of Present Illness Initial Comments: 48-year-old male patient presents to the emergency department today for evaluation of dizziness, weakness, and feeling shaky. Patient states that he has been feeling this way since early afternoon. States he does generally have dizziness on a daily basis but today it seems worse. Patient does report having nausea and one episode of vomiting. States he is currently having no nausea, abdominal pain, cause patient, diarrhea. Denies fever or chills. States his blood sugar was somewhat elevated today. He does take insulin for diabetes. He denies any chest pain, shortness of breath, numbness, or tingling to his extremities. Denies any headache, blurred vision, or double vision. States he is dizzy with lying and standing. States the room is spinning. Patient denies any recent rash, back pain, numbness, tingling, dizziness, weakness, hematuria, dysuria, urinary urgency, urinary frequency, or any other complaints. - Related Data Home Medications Medication Instructions Recorded Confirmed Atorvastatin [Lipitor] 40 mg PO HS 09/04/16 05/18/18 HYDROcodone/APAP 7.5-325MG [[place] 1 tab PO TID 03/05/17 05/18/18 7.5-325] INSULIN LISPRO (humaLOG) [humaLOG] 10 units SQ AC-TID 03/05/17 05/18/18 Omeprazole 40 mg PO DAILY 03/05/17 05/18/18 Pioglitazone [Actos] 30 mg PO DAILY 03/05/17 05/18/18 buPROPion HCL [buPROPion HCL SR] 150 mg PO BID 03/05/17 05/18/18 Gabapentin [Neurontin] 400 mg PO BID 09/24/17 05/18/18 Insulin Glargine,Hum.rec.anlog 80 unit SQ DAILY 05/18/18 05/18/18 [Basaglar Kwikpen U-100] Testosterone Cypionate 200 mg IM Q28D 05/18/18 05/18/18 [Depo-Testosterone] Venlafaxine HCl [Effexor XR] 150 mg PO DAILY 01/28/19 01/28/19 Previous Rx's Medication Instructions Recorded Meclizine [Antivert] 25 mg PO TID PRN #20 tab 05/18/18 Allergies Allergy/AdvReac Type Severity Reaction Status Date / Time lactose AdvReac Nausea & Verified 05/18/18 17:40 Vomiting & Diarrhea Review of Systems ROS Statement: Those systems with pertinent positive or pertinent negative responses have been documented in the HPI. ROS Other: All systems not noted in ROS Statement are negative. Past Medical History Past Medical History: Diabetes Mellitus Additional Past Medical History / Comment(s): neuropathy carpel tunnel borderline bipolar History of Any Multi-Drug Resistant Organisms: MRSA Date of last positivie culture/infection: 04/22/16 MDRO Source:: Right Hand Past Surgical History: Orthopedic Surgery Additional Past Surgical History / Comment(s): Colonscopy eye cataract surg Past Anesthesia/Blood Transfusion Reactions: No Reported Reaction Past Psychological History: Anxiety, Bipolar, Depression Smoking Status: Never smoker Past Alcohol Use History: None Reported Past Drug Use History: None Reported - Past Family History Mother Family Medical History: Diabetes Mellitus Additional Family Medical History / Comment(s): Mother is alive at age 61 with history of diabetes. Patient does not have any contact with his father. Brother(s) Additional Family Medical History / Comment(s): Patient has 2 brothers and one has history of diabetes and one has no major medical problems. Patient does not have any sisters. Patient does not have any children. General Exam Limitations: no limitations General appearance: alert, in no apparent distress, other (This is a well-develo ped, well-nourished adult male patient in no acute distress. Vital signs upon presentation are temperature 97.9F, pulse 85, respirations 18, blood pressure 154/79, pulse ox 97% on room air.) Eye exam: Present: normal appearance, PERRL, EOMI. Absent: scleral icterus, conjunctival injection, periorbital swelling ENT exam: Present: normal exam, normal oropharynx, mucous membranes moist Respiratory exam: Present: normal lung sounds bilaterally. Absent: respiratory distress, wheezes, rales, rhonchi, stridor Cardiovascular Exam: Present: regular rate, normal rhythm, normal heart sounds. Absent: systolic murmur, diastolic murmur, rubs, gallop, clicks GI/Abdominal exam: Present: soft, normal bowel sounds. Absent: distended, tenderness, guarding, rebound, rigid Neurological exam: Present: alert, oriented X3, CN II-XII intact, other (Strength in all 4 extremities is 5/5.) Psychiatric exam: Present: normal affect Skin exam: Present: warm, dry, intact, normal color. Absent: rash Course Vital Signs 03/13/19 03/13/19 03/13/19 17:59 19:54 20:30 Temperature 97.9 F Pulse Rate 85 83 82 Respiratory 18 18 Rate Blood Pressure 154/79 181/116 172/93 O2 Sat by Pulse 97 94 L Oximetry 03/13/19 03/13/19 21:53 23:06 Temperature 98.0 F Pulse Rate 89 81 Respiratory 18 18 Rate Blood Pressure 171/87 175/96 O2 Sat by Pulse 100 97 Oximetry Medical Decision Making - Medical Decision Making 48-year-old male patient presents to the emergency department today for evaluation of increased dizziness, weakness, and feeling shaky. Physical examination was relatively unremarkable. He is neurologically intact with no focal deficits. EKG was obtained and did show some changes from previous EKG in April 2018. Cardiac monitoring was reviewed and did show frequent PVCs most often in the pattern of bigeminy. Patient was given meclizine and Valium with no improvement in his dizziness. Blood pressures are also elevated here up to 190 systolic and 130 diastolic. Patient generally takes midodrine to increase blood pressures as he is usually well. Patient was given IV fluids. Upon reevaluation he states he is not feeling any better. Given these cluster findings we will admit to Dr. Guillen with cardiology consult. Patient is agreeable with this plan. - Lab Data Result diagrams: 03/13/19 18:30 03/13/19 18:30 Lab Results 03/13/19 03/13/19 03/13/19 Range/Units 18:02 18:30 18:30 WBC 8.5 (3.8-10.6) k/uL RBC 4.26 L (4.30-5.90) m/uL Hgb 12.1 L (13.0-17.5) gm/dL Hct 34.9 L (39.0-53.0) % MCV 82.0 (80.0-100.0) fL MCH 28.5 (25.0-35.0) pg MCHC 34.7 (31.0-37.0) g/dL RDW 13.4 (11.5-15.5) % Plt Count 303 (150-450) k/uL Neutrophils % 73 % Lymphocytes % 19 % Monocytes % 4 % Eosinophils % 2 % Basophils % 0 % Neutrophils # 6.2 (1.3-7.7) k/uL Lymphocytes # 1.6 (1.0-4.8) k/uL Monocytes # 0.4 (0-1.0) k/uL Eosinophils # 0.2 (0-0.7) k/uL Basophils # 0.0 (0-0.2) k/uL Sodium 141 (137-145) mmol/L Potassium 4.8 (3.5-5.1) mmol/L Chloride 106 (98-107) mmol/L Carbon Dioxide 26 (22-30) mmol/L Anion Gap 9 mmol/L BUN 34 H (9-20) mg/dL Creatinine 1.49 H (0.66-1.25) mg/dL Est GFR (CKD-EPI)AfAm 64 (>60 ml/min/1.73 sqM) Est GFR (CKD-EPI)NonAf 55 (>60 ml/min/1.73 sqM) Glucose 261 H (74-99) mg/dL POC Glucose (mg/dL) 248 H (75-99) mg/dL POC Glu Enrober Tender ID Joan Bah Calcium 9.6 (8.4-10.2) mg/dL Total Bilirubin 0.4 (0.2-1.3) mg/dL AST 23 (17-59) U/L ALT 28 (21-72) U/L Alkaline Phosphatase 108 (38-126) U/L Troponin I (0.000-0.034) ng/mL Total Protein 7.1 (6.3-8.2) g/dL Albumin 4.1 (3.5-5.0) g/dL Urine Color Urine Appearance (Clear) Urine pH (5.0-8.0) Ur Specific [place] (1.001-1.035) Urine Protein (Negative) Urine Glucose (UA) (Negative) Urine Ketones (Negative) Urine Blood (Negative) Urine Nitrite (Negative) Urine Bilirubin (Negative) Urine Urobilinogen (<2.0) mg/dL Ur Leukocyte Esterase (Negative) Urine RBC (0-5) /hpf Urine WBC (0-5) /hpf Hyaline Casts (0-2) /lpf Urine Mucus (None) /hpf 03/13/19 03/13/19 03/13/19 Range/Units 18:30 19:21 20:47 WBC (3.8-10.6) k/uL RBC (4.30-5.90) m/uL Hgb (13.0-17.5) gm/dL Hct (39.0-53.0) % MCV (80.0-100.0) fL MCH (25.0-35.0) pg MCHC (31.0-37.0) g/dL RDW (11.5-15.5) % Plt Count (150-450) k/uL Neutrophils % % Lymphocytes % % Monocytes % % Eosinophils % % Basophils % % Neutrophils # (1.3-7.7) k/uL Lymphocytes # (1.0-4.8) k/uL Monocytes # (0-1.0) k/uL Eosinophils # (0-0.7) k/uL Basophils # (0-0.2) k/uL Sodium (137-145) mmol/L Potassium (3.5-5.1) mmol/L Chloride (98-107) mmol/L Carbon Dioxide (22-30) mmol/L Anion Gap mmol/L BUN (9-20) mg/dL Creatinine (0.66-1.25) mg/dL Est GFR (CKD-EPI)AfAm (>60 ml/min/1.73 sqM) Est GFR (CKD-EPI)NonAf (>60 ml/min/1.73 sqM) Glucose (74-99) mg/dL POC Glucose (mg/dL) (75-99) mg/dL POC Glu Enrober Tender ID Calcium (8.4-10.2) mg/dL Total Bilirubin (0.2-1.3) mg/dL AST (17-59) U/L ALT (21-72) U/L Alkaline Phosphatase (38-126) U/L Troponin I <0.012 <0.012 (0.000-0.034) ng/mL Total Protein (6.3-8.2) g/dL Albumin (3.5-5.0) g/dL Urine Color Yellow Urine Appearance Clear (Clear) Urine pH 5.5 (5.0-8.0) Ur Specific [place] 1.019 (1.001-1.035) Urine Protein 1+ H (Negative) Urine Glucose (UA) 4+ H (Negative) Urine Ketones Negative (Negative) Urine Blood Negative (Negative) Urine Nitrite Negative (Negative) Urine Bilirubin Negative (Negative) Urine Urobilinogen <2.0 (<2.0) mg/dL Ur Leukocyte Esterase Negative (Negative) Urine RBC 1 (0-5) /hpf Urine WBC <1 (0-5) /hpf Hyaline Casts 4 H (0-2) /lpf Urine Mucus Rare H (None) /hpf - EKG Data -: EKG Interpreted by Me EKG Comments: EKG obtained at 1844 shows sinus rhythm with occasional PVCs. There is ST elevation most likely from early repolarization. Ventricular rate is 83, FL interval 148, QR catholic 90, QT 374, QTC 439. Disposition Clinical Impression: Dizziness, Bigeminy, Hypertension Disposition: ADMITTED IP TO THIS [facility] Condition: Serious Referrals: Justine Guillen MD [Primary Care Provider] - 1-2 days Decision to Admit Reason: Admit from EC Decision Date: 03/13/19 Decision Time: 22:37
[2019-03-13] MEDS ORDERED: DIAZEPAM 5 MG/ML 2 ML INJ IVP STA (19:25)
[2019-03-13 19:48] LABS: Appearance,Urine Clear (Clear); Bilirubin,Urine Negative (Negative); Blood,Urine Negative (Negative); Color,Urine Yellow; Glucose,Urine (UA) 4+ (Negative); Hyaline Casts,Urine 4 /lpf (0-2); Ketones,Urine Negative (Negative); Leukocyte Esterase,Urine Negative (Negative); Mucus,Urine Rare /hpf; Nitrite,Urine Negative (Negative); PH, Urine 5.5 (5.0-8.0); Protein,Urine 1+ (Negative); RBC,Urine 1 /hpf (0-5); Specific Gravity,Urine 1.019 (1.001-1.035); Urobilinogen,Urine <2.0 mg/dL (<2.0); WBC,Urine <1 /hpf (0-5)
[2019-03-13] MEDS ORDERED: NALOXONE 0.4 MG/ML 1 ML VIAL IV PRN (22:35)
[2019-03-13 23:21] LABS: Glucose,Whole Blood 201 mg/dL (75-99)
[2019-03-14 06:13] LABS: Glucose,Whole Blood 222 mg/dL (75-99)
[2019-03-14] MEDS: INSULIN ASPART (NovoLOG) 100 UNIT/ML VIAL SQ SCH ×4 (06:34→20:31)
[2019-03-14] MEDS: PANTOPRAZOLE 40 MG TABLET PO SCH (06:57)
[2019-03-14] MEDS: GABAPENTIN 400 MG CAP PO SCH ×2 (08:31→20:35)
[2019-03-14] MEDS: HYDROcodone/APAP 7.5-325MG 1 EACH TAB PO SCH ×3 (08:31→22:02)
[2019-03-14] MEDS ORDERED: Magnesium Replacement Protocol 1 EACH MISC MISCELLANE PRN (08:57)
[2019-03-14] MEDS: INSULIN DETEMIR (LEVEMIR) 100 UNIT/ML SYR SQ SCH ×2 (08:59→20:35)
[2019-03-14] MEDS: ONDANSETRON 4 MG/2 ML VIAL IVP PRN ×2 (09:00→16:41)
[2019-03-14] MEDS: ARIPiprazole 10 MG TAB PO SCH (09:00)
--- NOTE | 2019-03-14 09:30 | P.CRDCN ---
History of Present Illness Consult date: 03/14/19 Requesting physician: Justine Guillen Reason for Consult (text): ectopy dizziness Chief complaint: Weakness and worsening dizziness History of present illness: This is a pleasant 48-year-old gentleman with a past medical history of diabetes, hyperlipidemia, gastroparesis and hypotension for which he is on Midodrine at home but looking back in previous admissions and emergency department visits his blood pressure has always been elevated. He does suffer from chronic recurrent dizziness. He presented to the emergency department with complaints of worsening dizziness, weakness and nausea with one episode of vomiting occurring over the last 24-48 hours. Upon presentation, EKG and rhythm strip showed sinus rhythm with PVCs, frequent times with some bigeminy and trigeminy. Labs showed BUN of 34, creatinine 1.49 which are relatively stable comparing to previous lab draws, troponin negative 2 and a magnesium of 1.5 with a normal potassium. Blood pressure has been quite elevated since admission and has been quite elevated during previous admissions and ER visits. Most recent echocardiogram from April 2017 showed a normal LV systolic function with an ejection fraction between 55-60% with mild MR, mild TR and borderline pulmonary hypertension with an RVSP of 38.65 mmHg. He did undergo dobutamine stress echo about a year ago which showed no evidence of ischemia. Upon examination, patient is resting comfortably in bed. He continues to complain of nausea and is receiving Zofran. He also continues to complain of weakness and dizziness. Denies complaints of chest discomfort, palpitations, orthopnea, PND or edema. Does complain of occasional shortness of breath but his random and not related to position or exertion. Past Medical History Past Medical History: Diabetes Mellitus Additional Past Medical History / Comment(s): neuropathy carpel tunnel borderline bipolar History of Any Multi-Drug Resistant Organisms: MRSA Date of last positivie culture/infection: 04/22/16 MDRO Source:: Right Hand Past Surgical History: Orthopedic Surgery Additional Past Surgical History / Comment(s): Colonscopy eye cataract surg Past Anesthesia/Blood Transfusion Reactions: No Reported Reaction Past Psychological History: Anxiety, Bipolar, Depression Smoking Status: Never smoker Past Alcohol Use History: None Reported Additional Past Alcohol Use History / Comment(s): Patient is a lifelong nonsmoker. He lives with mother Past Drug Use History: None Reported - Past Family History Mother Family Medical History: Diabetes Mellitus Additional Family Medical History / Comment(s): Mother is alive at age 61 with history of diabetes. Patient does not have any contact with his father. Brother(s) Additional Family Medical History / Comment(s): Patient has 2 brothers and one has history of diabetes and one has no major medical problems. Patient does not have any sisters. Patient does not have any children. Medications and Allergies Home Medications Medication Instructions Recorded Confirmed Type Atorvastatin [Lipitor] 40 mg PO HS 09/04/16 03/13/19 History HYDROcodone/APAP 7.5-325MG [[place] 1 tab PO TID 03/05/17 03/13/19 History 7.5-325] Omeprazole 20 mg PO DAILY 03/05/17 03/13/19 History buPROPion HCL [buPROPion HCL SR] 150 mg PO BID 03/05/17 03/13/19 History Gabapentin [Neurontin] 400 mg PO BID 09/24/17 03/13/19 History Insulin Glargine,Hum.rec.anlog 50 unit SQ BID 05/18/18 03/13/19 History [Basaglar Kwikpen U-100] ARIPiprazole [Abilify] 10 mg PO DAILY 03/13/19 03/13/19 History Cyclobenzaprine [Flexeril] 5 mg PO TID PRN 03/13/19 03/13/19 History Insulin Lispro [Admelog] See Protocol SQ AC-TID 03/13/19 03/13/19 History Midodrine HCl [ProAmatine] 10 mg PO TID 03/13/19 03/13/19 History Allergies Allergy/AdvReac Type Severity Reaction Status Date / Time lactose AdvReac Nausea & Verified 03/13/19 23:26 Vomiting & Diarrhea Physical Exam Vitals: Vital Signs Temp Pulse Pulse Resp BP BP Pulse Ox 03/14/19 04:00 98.2 F 87 16 160/96 97 03/14/19 00:00 92 18 03/13/19 23:19 98.5 F 92 18 171/92 95 03/13/19 23:06 98.0 F 81 18 175/96 97 03/13/19 21:53 89 18 171/87 100 03/13/19 20:30 82 172/93 03/13/19 19:54 83 18 181/116 94 L 03/13/19 17:59 97.9 F 85 18 154/79 97 Intake and Output 03/13/19 03/14/19 03/14/19 22:59 06:59 14:59 Other: Weight 108.862 kg PHYSICAL EXAMINATION: HEENT: Head is atraumatic, normocephalic. Pupils equal, round. Neck is supple. There is no elevated jugular venous pressure. HEART EXAMINATION: Heart sounds regular, S1 and S2 normal. No murmur or gallop heard. CHEST EXAMINATION: Lungs are clear to auscultation and precussion. No chest wall tenderness is noted on palpation or with deep breathing. ABDOMEN: Soft, nontender. Bowel sounds are heard. No organomegaly noted. EXTREMITIES: 2+ peripheral pulses with no evidence of peripheral edema and no calf tenderness noted. NEUROLOGIC patient is awake, alert and oriented x3. . Results 03/13/19 18:30 03/13/19 18:30 Cardiac Enzymes 03/13/19 03/13/19 03/13/19 Range/Units 18:30 18:30 20:47 AST 23 (17-59) U/L Troponin I <0.012 <0.012 (0.000-0.034) ng/mL CBC 03/13/19 Range/Units 18:30 WBC 8.5 (3.8-10.6) k/uL RBC 4.26 L (4.30-5.90) m/uL Hgb 12.1 L (13.0-17.5) gm/dL Hct 34.9 L (39.0-53.0) % Plt Count 303 (150-450) k/uL Comprehensive Metabolic Panel 03/13/19 Range/Units 18:30 Sodium 141 (137-145) mmol/L Potassium 4.8 (3.5-5.1) mmol/L Chloride 106 (98-107) mmol/L Carbon Dioxide 26 (22-30) mmol/L BUN 34 H (9-20) mg/dL Creatinine 1.49 H (0.66-1.25) mg/dL Glucose 261 H (74-99) mg/dL Calcium 9.6 (8.4-10.2) mg/dL AST 23 (17-59) U/L ALT 28 (21-72) U/L Alkaline Phosphatase 108 (38-126) U/L Total Protein 7.1 (6.3-8.2) g/dL Albumin 4.1 (3.5-5.0) g/dL Current Medications Generic Name Dose Route Start Last Admin Trade Name Freq PRN Reason Stop Dose Admin Hydrocodone Bitart/Acetaminophen 1 each 03/14/19 09:00 03/14/19 08:31 [place] 7.5-325 PO 1 each TID KERVIN Administration Aripiprazole 10 mg 03/14/19 09:00 03/14/19 09:00 Abilify PO 10 mg DAILY KERVIN Administration Atorvastatin Calcium 40 mg 03/14/19 21:00 Lipitor PO HS KERVIN Bupropion HCl 150 mg 03/14/19 09:00 Wellbutrin Sr PO BID KERVIN Gabapentin 400 mg 03/14/19 09:00 03/14/19 08:31 Neurontin PO 400 mg BID KERIVN Administration Magnesium Sulfate/Dextrose 1 100 mls @ 100 mls/hr 03/14/19 10:00 gm/ IV Solution IVPB 03/14/19 11:59 Q1H [facility] Insulin Aspart 0 unit 03/14/19 07:30 03/14/19 06:34 Novolog SQ 4 unit ACHS [facility] Administration Protocol Insulin Detemir 50 unit 03/14/19 07:30 03/14/19 08:59 Levemir SQ 50 unit BID@0700,2100 [facility] Administration Miscellaneous Information 1 each 03/14/19 08:57 Magnesium Per Protocol MISCELLANE DAILY PRN Per Protocol Protocol Naloxone HCl 0.2 mg 03/13/19 22:35 Narcan IV Q2M PRN Opioid Reversal Ondansetron HCl 4 mg 03/14/19 08:28 03/14/19 09:00 Zofran IVP 4 mg Q6HR PRN Administration Nausea And Vomiting Pantoprazole Sodium 40 mg 03/14/19 07:30 03/14/19 06:57 Protonix PO 40 mg [id number] KERVIN Administration Intake and Output 03/13/19 03/14/19 03/14/19 22:59 06:59 14:59 Other: Weight 108.862 kg 03/13/19 18:30 03/13/19 18:30 EKG Interpretations (text) Sinus rhythm with PVCs Assessment and Plan Assessment: #1 symptoms of weakness, dizziness and nausea #2 frequent PVCs #3 diabetes mellitus with gastroparesis #4 hypertension, apparently previously hypotensive and on Midodrine at home #5 hyperlipidemia #6 hypomagnesemia #7 chronic renal failure Plan: From protective signal installer helper perspective, we will replace magnesium. Obtain 2-D echo with Doppler to assess cardiac structure and function. Add low-dose beta ashok. Continue to monitor vital signs and monitoring analyst. Repeat BMP and magnesium in the morning. We will continue to follow the patient and provide further recommendations accordingly. TELEPHONE CLEANER note has been reviewed, I agree with a documented findings and plan of care. Patient was seen and examined.
[2019-03-14] MEDS: CARVEDILOL 3.125 MG TAB PO SCH ×2 (09:38→17:28)
[2019-03-14] MEDS: buPROPion SR 150 MG TABLET.ER PO SCH ×2 (09:38→20:35)
[2019-03-14] MEDS: MAGNESIUM SULFATE-D5W PMX 1 GM in DEXTROSE/WATER 1 100ML.BAG IVPB SCH ×2 (09:38→11:50)
[2019-03-14 12:35] LABS: Glucose,Whole Blood 172 mg/dL (75-99)
[2019-03-14] MEDS ORDERED: MECLIZINE 25 MG TAB PO PRN (13:16)
--- NOTE | 2019-03-14 16:17 | P.HPIM ---
History of Present Illness H&P Date: 03/14/19 Chief Complaint: Severe dizziness This is a 48-year-old gentleman well known to my practice. He has underlying history of diabetes mellitus type 2 with complications, gastroparesis, diabetic neuropathy, hypertension hyperlipidemia, admitted through the emergency room secondary to see significant dizziness, this is persistent, for the past 48 hours, with associated nausea and vomiting, no upper respiratory infections, no diplopia, no focal neurologic deficits, no cranial nerve palsies. Blood sugars are in the low 200s at home, without any hypoglycemic event. He was s ubsequently seen in emergency room secondary to above symptoms, however is noted to have multiple PVCs and Layne's, trigeminy and ectopies, for which patient was admitted for an observation with cardiology consultation. Patient denies any history of seizure disorder, he has autonomic dysfunction, for which he is on maintenance with the drain. Patient is vertiginous with head movement, not only with standing position. Examination is normal today, In the emergency room. He was noted to have hypomagnesemia, with normal troponins, EKG shows multiple PVCs, bigeminy and trigeminy, no acute ST-T wave changes, no neurology is available and consult this weekend, EEG of the brain to be done, MRI with the internal auditory canal of the brain would be done, along with physical therapy with This maneuver, meclizine for vertigo Review of Systems Constitutional: Reports as per HPI, Denies anorexia, Denies chills, Denies chronic headaches, Denies chronic pain, Denies daytime sleepiness, Denies fatigue, Denies fever, Denies lethargy, Denies malaise, Denies night sweats, Denies poor appetite, Denies sweats, Denies weakness, Denies weight gain, Denies weight loss Ears, nose, mouth and throat: Reports as per HPI, Denies ant. neck pain, Denies bleeding gums, Denies dental pain, Denies dysphagia, Denies epistaxis, Denies headache, Denies hoarseness, Denies mouth pain, Denies nasal congestion, Denies nasal discharge, Denies neck fullness/pressure, Denies neck lump, Denies nose pain, Denies odynophagia, Denies post-nasal drip, Denies sinus pain, Denies sinus pressure, Denies swelling in mouth, Denies swelling in throat, Denies sore throat, Denies vertigo, Denies voice changes Cardiovascular: Reports as per HPI, Reports irregular heart beat, Reports palpitations Respiratory: Reports as per HPI, Denies congestion, Denies cough, Denies cough with sputum, Denies dyspnea, Denies excessive sputum, Denies hemoptysis, Denies home oxygen, Denies pain, Denies pain on inspiration, Denies pleurisy, Denies respiratory infections, Denies sleep apnea, Denies snoring, Denies wheezing Gastrointestinal: Reports as per HPI, Denies abdominal pain, Denies belching, Denies bloating, Denies BRBPR, Denies change in bowel habits, Denies coffee ground emesis, Denies constipation, Denies diarrhea, Denies dyspepsia, Denies early satiety, Denies excessive gas, Denies heartburn, Denies hematemesis, Denies hematochezia, Denies indigestion, Denies jaundice, Denies lactose intolerance, Denies loss of appetite, Denies melena, Denies nausea, Denies vomiting Genitourinary: Reports as per HPI Musculoskeletal: Reports as per HPI Integumentary: Reports as per HPI Neurological: Reports as per HPI, Reports vertigo, Denies aphasia, Denies ataxia, Denies balance difficulties, Denies burning pain, Denies change in mentation, Denies change in smell/taste, Denies change in speech, Denies confusion, Denies convulsions, Denies double vision, Denies gait dysfunction, Denies head injury, Denies headaches, Denies hearing difficulties, Denies lack of coordination, Denies loss of vision, Denies memory loss, Denies migraines, Denies motor disturbance, Denies numbness, Denies paralysis, Denies paresthesias, Denies seizures, Denies sensory deficit, Denies spasticity, Denies syncope, Denies tic, Denies tingling, Denies transient paralysis, Denies tremors, Denies weakness, Denies visual changes Psychiatric: Reports as per HPI Endocrine: Reports as per HPI Hematologic/Lymphatic: Reports as per HPI Allergic/Immunologic: Reports as per HPI Past Medical History Past Medical History: Diabetes Mellitus Additional Past Medical History / Comment(s): neuropathy carpel tunnel borderline bipolar History of Any Multi-Drug Resistant Organisms: MRSA Date of last positivie culture/infection: 04/22/16 MDRO Source:: Right Hand Past Surgical History: Orthopedic Surgery Additional Past Surgical History / Comment(s): Colonscopy eye cataract surg Past Anesthesia/Blood Transfusion Reactions: No Reported Reaction Past Psychological History: Anxiety, Bipolar, Depression Smoking Status: Never smoker Past Alcohol Use History: None Reported Additional Past Alcohol Use History / Comment(s): Patient is a lifelong nonsmoker. He lives with mother Past Drug Use History: None Reported - Past Family History Mother Family Medical History: Diabetes Mellitus Additional Family Medical History / Comment(s): Mother is alive at age 61 with history of diabetes. Patient does not have any contact with his father. Brother(s) Additional Family Medical History / Comment(s): Patient has 2 brothers and one has history of diabetes and one has no major medical problems. Patient does not have any sisters. Patient does not have any children. Medications and Allergies Home Medications Medication Instructions Recorded Confirmed Type Atorvastatin [Lipitor] 40 mg PO HS 09/04/16 03/13/19 History HYDROcodone/APAP 7.5-325MG [[place] 1 tab PO TID 03/05/17 03/13/19 History 7.5-325] Omeprazole 20 mg PO DAILY 03/05/17 03/13/19 History buPROPion HCL [buPROPion HCL SR] 150 mg PO BID 03/05/17 03/13/19 History Gabapentin [Neurontin] 400 mg PO BID 09/24/17 03/13/19 History Insulin Glargine,Hum.rec.anlog 50 unit SQ BID 05/18/18 03/13/19 History [Basaglar Kwikpen U-100] ARIPiprazole [Abilify] 10 mg PO DAILY 03/13/19 03/13/19 History Cyclobenzaprine [Flexeril] 5 mg PO TID PRN 03/13/19 03/13/19 History Insulin Lispro [Admelog] See Protocol SQ AC-TID 03/13/19 03/13/19 History Midodrine HCl [ProAmatine] 10 mg PO TID 03/13/19 03/13/19 History Allergies Allergy/AdvReac Type Severity Reaction Status Date / Time lactose AdvReac Nausea & Verified 03/13/19 23:26 Vomiting & Diarrhea Physical Exam Vitals: Vital Signs Temp Pulse Pulse Pulse Resp BP BP 03/14/19 11:45 98.2 F 87 87 18 144/96 03/14/19 08:15 98.3 F 89 89 18 156/95 03/14/19 04:00 98.2 F 87 16 160/96 03/14/19 00:00 92 18 03/13/19 23:19 98.5 F 92 18 171/92 03/13/19 23:06 98.0 F 81 18 175/96 03/13/19 21:53 89 18 171/87 03/13/19 20:30 82 172/93 03/13/19 19:54 83 18 181/116 03/13/19 17:59 97.9 F 85 18 154/79 Pulse Ox 03/14/19 11:45 92 L 03/14/19 08:15 97 03/14/19 04:00 97 03/14/19 00:00 03/13/19 23:19 95 03/13/19 23:06 97 03/13/19 21:53 100 03/13/19 20:30 03/13/19 19:54 94 L 03/13/19 17:59 97 Intake and Output 03/14/19 03/14/19 03/14/19 06:59 14:59 22:59 Intake Total 400 Balance 400 Intake: Intake, IV Titration 200 Amount Magnesium Sulfate-D5w Pmx 200 1 gm In Dextrose/Water 1 100ml.bag @ 100 mls/hr IVPB Q1H [facility] Rx#: [id number] Oral 200 - Constitutional General appearance: average body habitus, cooperative, no acute distress - EENT Eyes: anicteric sclerae, EOMI, PERRLA, dentition normal ENT: NA/AT, normal oropharynx - Neck Neck: normal ROM - Respiratory Respiratory: bilateral: CTA, negative: diminished, dullness, rales, rhonchi - Cardiovascular Rhythm: regular Heart sounds: normal: S1, S2 Abnormal Heart Sounds: no systolic murmur, no diastolic murmur, no rub, no S3 Gallop, no S4 Gallop, no click, no other - Gastrointestinal General gastrointestinal: normal bowel sounds, soft - Integumentary Integumentary: normal, normal turgor - Neurologic Neurologic: CNII-XII intact - Musculoskeletal Musculoskeletal: gait normal, strength equal bilaterally - Psychiatric Psychiatric: A&O x's 3, appropriate affect Results CBC & Chem 7: 03/13/19 18:30 03/13/19 18:30 Labs: Abnormal Lab Results - Last 24 Hours (Table) 03/13/19 03/13/19 03/13/19 Range/Units 18:02 18:30 18:30 RBC 4.26 L (4.30-5.90) m/uL Hgb 12.1 L (13.0-17.5) gm/dL Hct 34.9 L (39.0-53.0) % BUN 34 H (9-20) mg/dL Creatinine 1.49 H (0.66-1.25) mg/dL Glucose 261 H (74-99) mg/dL POC Glucose (mg/dL) 248 H (75-99) mg/dL Magnesium (1.6-2.3) mg/dL Urine Protein (Negative) Urine Glucose (UA) (Negative) Hyaline Casts (0-2) /lpf Urine Mucus (None) /hpf 03/13/19 03/13/19 03/14/19 Range/Units 19:21 23:20 06:12 RBC (4.30-5.90) m/uL Hgb (13.0-17.5) gm/dL Hct (39.0-53.0) % BUN (9-20) mg/dL Creatinine (0.66-1.25) mg/dL Glucose (74-99) mg/dL POC Glucose (mg/dL) 201 H 222 H (75-99) mg/dL Magnesium (1.6-2.3) mg/dL Urine Protein 1+ H (Negative) Urine Glucose (UA) 4+ H (Negative) Hyaline Casts 4 H (0-2) /lpf Urine Mucus Rare H (None) /hpf 03/14/19 03/14/19 Range/Units 07:58 12:34 RBC (4.30-5.90) m/uL Hgb (13.0-17.5) gm/dL Hct (39.0-53.0) % BUN (9-20) mg/dL Creatinine (0.66-1.25) mg/dL Glucose (74-99) mg/dL POC Glucose (mg/dL) 172 H (75-99) mg/dL Magnesium 1.5 L (1.6-2.3) mg/dL Urine Protein (Negative) Urine Glucose (UA) (Negative) Hyaline Casts (0-2) /lpf Urine Mucus (None) /hpf Laboratory Results WBC 8.5 k/uL (3.8-10.6) 03/13/19 18:30 RBC 4.26 m/uL (4.30-5.90) L 03/13/19 18:30 Hgb 12.1 gm/dL (13.0-17.5) L 03/13/19 18:30 Hct 34.9 % (39.0-53.0) L 03/13/19 18:30 MCV 82.0 fL (80.0-100.0) 03/13/19 18:30 MCH 28.5 pg (25.0-35.0) 03/13/19 18:30 MCHC 34.7 g/dL (31.0-37.0) 03/13/19 18:30 RDW 13.4 % (11.5-15.5) 03/13/19 18:30 Plt Count 303 k/uL (150-450) 03/13/19 18:30 Neutrophils % 73 % 03/13/19 18:30 Lymphocytes % 19 % 03/13/19 18:30 Monocytes % 4 % 03/13/19 18:30 Eosinophils % 2 % 03/13/19 18: Basophils % 0 % 03/13/19 18:30 Neutrophils # 6.2 k/uL (1.3-7.7) 03/13/19 18:30 Lymphocytes # 1.6 k/uL (1.0-4.8) 03/13/19 18:30 Monocytes # 0.4 k/uL (0-1.0) 03/13/19 18:30 Eosinophils # 0.2 k/uL (0-0.7) 03/13/19 18:30 Basophils # 0.0 k/uL (0-0.2) 03/13/19 18:30 Sodium 141 mmol/L (137-145) 03/13/19 18:30 Potassium 4.8 mmol/L (3.5-5.1) 03/13/19 18:30 Chloride 106 mmol/L (98-107) 03/13/19 18:30 Carbon Dioxide 26 mmol/L (22-30) 03/13/19 18:30 Anion Gap 9 mmol/L 03/13/19 18:30 BUN 34 mg/dL (9-20) H 03/13/19 18:30 Creatinine 1.49 mg/dL (0.66-1.25) H 03/13/19 18:30 Est GFR (CKD-EPI)AfAm 64 (>60 ml/min/1.73 sqM) 03/13/19 18:30 Est GFR (CKD-EPI)NonAf 55 (>60 ml/min/1.73 sqM) 03/13/19 18:30 Glucose 261 mg/dL (74-99) H 03/13/19 18:30 POC Glucose (mg/dL) 172 mg/dL (75-99) H 03/14/19 12:34 POC Glu Alterations Expert ID Ada Morin 03/14/19 12:34 Calcium 9.6 mg/dL (8.4-10.2) 03/13/19 18:30 Magnesium 1.5 mg/dL (1.6-2.3) L 03/14/19 07:58 Total Bilirubin 0.4 mg/dL (0.2-1.3) 03/13/19 18:30 AST 23 U/L (17-59) 03/13/19 18:30 ALT 28 U/L (21-72) 03/13/19 18:30 Alkaline Phosphatase 108 U/L (38-126) 03/13/19 18:30 Troponin I <0.012 ng/mL (0.000-0.034) 03/13/19 20:47 Total Protein 7.1 g/dL (6.3-8.2) 03/13/19 18:30 Albumin 4.1 g/dL (3.5-5.0) 03/13/19 18:30 Urine Color Yellow 03/13/19 19:21 Urine Appearance Clear (Clear) 03/13/19 19:21 Urine pH 5.5 (5.0-8.0) 03/13/19 19:21 Ur Specific [place] 1.019 (1.001-1.035) 03/13/19 19:21 Urine Protein 1+ (Negative) H 03/13/19 19:21 Urine Glucose (UA) 4+ (Negative) H 03/13/19 19:21 Urine Ketones Negative (Negative) 03/13/19 19:21 Urine Blood Negative (Negative) 03/13/19 19:21 Urine Nitrite Negative (Negative) 03/13/19 19:21 Urine Bilirubin Negative (Negative) 03/13/19 19:21 Urine Urobilinogen <2.0 mg/dL (<2.0) 03/13/19 19:21 Ur Leukocyte Esterase Negative (Negative) 03/13/19 19:21 Urine RBC 1 /hpf (0-5) 03/13/19 19:21 Urine WBC <1 /hpf (0-5) 03/13/19 19:21 Hyaline Casts 4 /lpf (0-2) H 03/13/19 19:21 Urine Mucus Rare /hpf (None) H 03/13/19 19:21 Thrombosis Risk Factor Assmnt - Choose All That Apply Each Factor Represents 1 point: Age 41-60 years, Obesity (BMI >25) Other Risk Factors: No Thrombosis Risk Factor Assessment Total Risk Factor Score: 2 Thrombosis Risk Factor Assessment Level: Low Risk Assessment and Plan Plan: 1. Severe vertigo, without any oculomotor abnormality , MRI of the brain to be done with and without contrast including the IAC, consult with Dr. Stone secondary to ectopy bigeminy trigeminy noted, but admission was currently replaced. Physical therapy to see, 4 epis maneuver, and consult with Dr. hardy on neurology, EEG of the brain 2. History of autonomic dysfunction related diabetes mellitus, with orthostatic changes requiring midodrine 3 times a day 3. Diabetes mellitus type 2 with gastroparesis, and other specified complications including neuropathy, on lispro pre-meal, vesicular 50 units twice a day 4. Mood disorder, on Abilify 10 mg daily secondary to persistent drug resistant depression continue Wellbutrin 150 twice a day and Abilify 10 mg daily 5. Hyperlipidemia. Lipitor 40 mg daily 6. Hypertension. Coreg 3.125 mg started by cardiology 7 Hypomagnesemia currently being replaced 8 Neuropathy on maintenance gabapentin 400 mg twice a day, on hydrocodone 7.5325 3 times a day prior to admission Patient is kept as an observation, MRI, neurology, PT OT at this maneuver, meclizine for controlled symptoms
[2019-03-14 16:57] LABS: Glucose,Whole Blood 111 mg/dL (75-99)
[2019-03-14] MEDS: CARVEDILOL 6.25 MG TAB PO SCH (17:57)
[2019-03-14] MEDS: MECLIZINE 25 MG TAB PO SCH (17:57)
[2019-03-14] MEDS: ATORVASTATIN 40 MG TAB PO SCH (20:35)
[2019-03-14 20:37] LABS: Glucose,Whole Blood 128 mg/dL (75-99)
[2019-03-15 05:38] LABS: Glucose,Whole Blood 111 mg/dL (75-99)
[2019-03-15] MEDS: INSULIN ASPART (NovoLOG) 100 UNIT/ML VIAL SQ SCH ×4 (06:15→21:00)
[2019-03-15 06:20] LABS: Calcium 9.4 mg/dL (8.4-10.2); Magnesium 2.1 mg/dL (1.6-2.3); Potassium 4.3 mmol/L (3.5-5.1)
[2019-03-15] MEDS: INSULIN DETEMIR (LEVEMIR) 100 UNIT/ML SYR SQ SCH ×2 (06:49→21:00)
[2019-03-15] MEDS: PANTOPRAZOLE 40 MG TABLET PO SCH (06:49)
[2019-03-15] MEDS: CARVEDILOL 6.25 MG TAB PO SCH ×2 (06:49→16:50)
[2019-03-15] MEDS: buPROPion SR 150 MG TABLET.ER PO SCH ×2 (08:43→20:59)
[2019-03-15] MEDS: HYDROcodone/APAP 7.5-325MG 1 EACH TAB PO SCH ×3 (08:43→21:00)
[2019-03-15] MEDS: MECLIZINE 25 MG TAB PO SCH ×3 (08:43→20:59)
[2019-03-15] MEDS: GABAPENTIN 400 MG CAP PO SCH ×2 (08:43→21:00)
[2019-03-15] MEDS: ARIPiprazole 10 MG TAB PO SCH (08:43)
--- NOTE | 2019-03-15 09:00 | US ---
EXAMINATION TYPE: US carotid duplex BILAT DATE OF EXAM: 03/15/2019 COMPARISON: NONE CLINICAL HISTORY: vertigo. Dizziness, exam done portable. EXAM MEASUREMENTS: RIGHT: Peak Systolic Velocity (PSV) cm/sec ----- Right CCA: 83.9 ----- Right ICA: 86.4 ----- Right ECA: 83.1 ICA/CCA ratio: 1.0 RIGHT: End Diastole cm/sec ----- Right CCA: 36.9 ----- Right ICA: 27.0 ----- Right ECA: 12.8 LEFT: Peak Systolic Velocity (PSV) cm/sec ----- Left CCA: 79.8 ----- Left ICA: 82.2 ----- Left ECA: 88.9 ICA/CCA ratio: 1.0 LEFT: End Diastole cm/sec ----- Left CCA: 24.8 ----- Left ICA: 37.9 ----- Left ECA: 14.3 VERTEBRALS (direction of flow): Right Vertebral: Antegrade Left Vertebral: Antegrade Rhythm: Normal Bilateral intimal thickening, no elevated velocities, no significant stenosis. IMPRESSION: 1. There are some intimal thickening without significant flow-limiting stenosis. Minimal plaquing may be present on the left. Criteria for Assigning % of Stenosis / Diameter reduction (Estimation based on the indirect measurements of the internal carotid artery velocities (ICA PSV). 1. Normal (no stenosis)=ICA PSV < 125 cm/s: ratio < 2.0: ICA EDV<40 cm/s. 2. Less than 50% stenosis=ICA PSV < 125 cm/s: ratio < 2.0: ICA EDV<40 cm/s. 3. 50 to 69% stenosis=ICA PSV of 125 to 230 cm/s: ration 2.0 ? 4.0: ICA EDV 40-100 cm/s. 4. Greater than 70% stenosis to near occlusion= ICA PSV > 230 cm/s: ratio > 4.0: ICA EDV > 100 cm/s. 5. Near occlusion= ICA PSV velocities may be low or undetectable: variable ratio and ICA EDV. 6. Total occlusion=unable to detect flow.
--- NOTE | 2019-03-15 10:25 | ECHOF ---
Referral Reason:frequent PVCs, dizziness, HTN MEASUREMENTS -------- HEIGHT: 172.7 cm WEIGHT: 101.2 kg BP: 151/90 RVIDd: 3.7 cm (< 3.3) IVSd: 1.4 cm (0.6 - 1.1) LVIDd: 4.1 cm (3.9 - 5.3) LVPWd: 1.7 cm (0.6 - 1.1) IVSs: 1.5 cm LVIDs: 3.1 cm LVPWs: 1.7 cm LA Diam: 3.8 cm (2.7 - 3.8) LAESV Index (A-L): 24.60 ml/m Ao Diam: 3.6 cm (2.0 - 3.7) AV Cusp: 1.7 cm (1.5 - 2.6) LA Diam: 4.0 cm (2.7 - 3.8) MV EXCURSION: 18.742 mm (> 18.000) MV EF SLOPE: 148 mm/s (70 - 150) EPSS: 0.5 cm MV E Kal[place]: 0.65 m/s MV DecT: 159 ms MV A [place]: 0.70 m/s MV E/A Ratio: 0.92 RAP: 5.00 mmHg RVSP: 21.14 mmHg TAPSE: 13.28 mm FINDINGS -------- Sinus rhythm. This was a technically adequate study. The left ventricular size is normal. There is mild concentric left ventricular hypertrophy. Overa ll left ventricular systolic function is normal with, an EF between 55 - 60 %. The diastolic fillin g pattern is normal for the age of the patient 14.67. The right ventricle is normal in size. The left atrial size is normal. Normal LA size by volume 22+/-6 ml/m2. The right atrial size is normal. The aortic valve is trileaflet, and appears structurally normal. No aortic stenosis or regurgitation. Mild mitral regurgitation is present. Mild tricuspid regurgitation present. There is no evidence of pulmonary hypertension. The right v entricular systolic pressure, as measured by Doppler, is 21.14mmHg. There is no pulmonic regurgitation present. The aortic root size is normal. There is no pericardial effusion. CONCLUSIONS -------- 1. Sinus rhythm. 2. This was a technically adequate study. 3. The left ventricular size is normal. 4. There is mild concentric left ventricular hypertrophy. 5. Overall left ventricular systolic function is normal with, an EF between 55 - 60 %. 6. The diastolic filling pattern is normal for the age of the patient 14.67 7. The right ventricle is normal in size. 8. The left atrial size is normal. 9. Normal LA size by volume 22+/-6 ml/m2. 10. The right atrial size is normal. 11. The aortic valve is trileaflet, and appears structurally normal. No aortic stenosis or regurgitat ion. 12. Mild mitral regurgitation is present. 13. Mild tricuspid regurgitation present. 14. There is no evidence of pulmonary hypertension. 15. The right ventricular systolic pressure, as measured by Doppler, is 21.14mmHg. 16. There is no pulmonic regurgitation present. 17. The aortic root size is normal. 18. There is no pericardial effusion. PATTERN LAYOUT WORKER: Josee Muñoz RDCS
--- NOTE | 2019-03-15 11:32 | P.PN ---
Subjective Progress Note Date: 03/15/19 This is a pleasant 48-year-old gentleman with a past medical history of diabetes, hyperlipidemia, gastroparesis and hypotension for which he is on Midodrine at home but looking back in previous admissions and emergency department visits his blood pressure has always been elevated. He does suffer from chronic recurrent dizziness. He presented to the emergency department with complaints of worsening dizziness, weakness and nausea with one episode of vomiting occurring over the prior 24-48 hours. Upon presentation, EKG and rhythm strip showed sinus rhythm with PVCs, frequent times with some bigeminy and trigeminy. Blood pressure has been quite elevated since admission and has been quite elevated during previous admissions and ER visits. Most recent echocardiogram from April 2017 showed a normal LV systolic function with an ejection fraction between 55-60% with mild MR, mild TR and borderline pulmonary hypertension with an RVSP of 38.65 mmHg. He did undergo dobutamine stress echo about a year ago which showed no evidence of ischemia. on the monitor today the patient is in a normal sinus rhythm, very rare PVC. Sodium 143, potassium 4.3, BUN 25 creatinine 1.4 magnesium 2.1. Patient denies any dizziness or lightheadedness today. Echocardiogram with Doppler study revealed a normal left ventricular systolic function. Objective - Vital Signs Vital signs: Vital Signs Temp 98.1 F 03/15/19 07:52 Pulse 73 03/15/19 07:52 Resp 16 03/15/19 07:52 BP 133/77 03/15/19 07:52 Pulse Ox 95 03/15/19 07:52 Intake & Output 03/14/19 03/15/19 03/15/19 18:59 06:59 18:59 Intake Total 620 240 Balance 620 240 Weight 101.2 kg Intake: Intake, IV Titration 200 Amount Magnesium Sulfate-D5w Pmx 200 1 gm In Dextrose/Water 1 100ml.bag @ 100 mls/hr IVPB Q1H [facility] Rx#: [id number] Oral 420 240 Other: # Voids 1 1 1 - Exam PHYSICAL EXAMINATION: HEENT: Head is atraumatic, normocephalic. Pupils equal, round. Neck is supple. There is no elevated jugular venous pressure. HEART EXAMINATION: Heart sounds regular, S1 and S2 normal. No murmur or gallop heard. CHEST EXAMINATION: Lungs are clear to auscultation and precussion. No chest wall tenderness is noted on palpation or with deep breathing. ABDOMEN: Soft, nontender. Bowel sounds are heard. No organomegaly noted. EXTREMITIES: 2+ peripheral pulses with no evidence of peripheral edema and no calf tenderness noted. NEUROLOGIC patient is awake, alert and oriented x3. - Labs CBC & Chem 7: 03/13/19 18:30 03/15/19 05:37 Labs: Abnormal Lab Results - Last 24 Hours (Table) 03/14/19 03/14/19 03/14/19 Range/Units 12:34 16:56 20:31 Carbon Dioxide (22-30) mmol/L BUN (9-20) mg/dL Creatinine (0.66-1.25) mg/dL Glucose (74-99) mg/dL POC Glucose (mg/dL) 172 H 111 H 128 H (75-99) mg/dL 03/15/19 03/15/19 Range/Units 05:25 05:37 Carbon Dioxide 33 H (22-30) mmol/L BUN 25 H (9-20) mg/dL Creatinine 1.46 H (0.66-1.25) mg/dL Glucose 103 H (74-99) mg/dL POC Glucose (mg/dL) 111 H (75-99) mg/dL Assessment and Plan Plan: Assessment: #1 symptoms of weakness, dizziness and nausea #2 frequent PVCs, improving after magnesium was #3 diabetes mellitus with gastroparesis #4 hypertension, apparently previously hypotensive and on Midodrine at home #5 hyperlipidemia #6 hypomagnesemia, replace #7 chronic renal failure Plan We will continue to monitor orthostatics, continue the patient's current medications. Further recommendations to follow. DNP note has been reviewed, I agree with a documented findings and plan of care. Patient was seen and examined.
[2019-03-15 11:51] LABS: Glucose,Whole Blood 122 mg/dL (75-99)
--- NOTE | 2019-03-15 14:55 | P.PN ---
Subjective Progress Note Date: 03/15/19 This is a 48-year-old gentleman well known to my practice. He has underlying history of diabetes mellitus type 2 with complications, gastroparesis, diabetic neuropathy, hypertension hyperlipidemia, admitted through the emergency room secondary to see significant dizziness, this is persistent, for the past 48 hours, with associated nausea and vomiting, no upper respiratory infections, no diplopia, no focal neurologic deficits, no cranial nerve palsies. Blood sugars are in the low 200s at home, without any hypoglycemic event. He was subsequently seen in emergency room secondary to above symptoms, however is noted to have multiple PVCs and Layne's, trigeminy and ectopies, for which patient was admitted for an observation with cardiology consultation. Patient denies any history of seizure disorder, he has autonomic dysfunction, for which he is on maintenance with the drain. Patient is vertiginous with head movement, not only with standing position. Examination is normal today, In the emergency room. He was noted to have hypomagnesemia, with normal troponins, EKG shows multiple PVCs, bigeminy and trigeminy, no acute ST-T wave changes, no neurology is available and consult this weekend, EEG of the brain to be done, MRI with the internal auditory canal of the brain would be done, along with physical therapy with This maneuver, meclizine for vertigo 03/15: Patient underwent MRI of the brain this morning and report is pending. Patient apparently returned from the MRI was feeling dizzy and orthostatics were positive. TALITA hose were ordered by cardiology. Patient states he is still feeling dizzy when he stands. He denies any chest pain or visual changes. He also states he is dizzy with movement. No nystagmus noted on exam. Occupational therapy to see the patient regarding Elisa maneuver. Repeat lab work reveals BUN of 25 and creatinine 1.46, CO2 33. Blood sugars are between 103 and 122. TSH is 2.860, magnesium 2.1. Patient has been afebrile, blood pressure 162/90, heart rate 71, pulse ox 93% on room air. Anticipate possible discharge tomorrow. Review Of Systems: Constitutional: No fever, no chills, no night sweats. No weight change. Reports weakness, fatigue or lethargy. No daytime sleepiness. EENT: No headache. No blurred vision or double vision, no loss of vision. No loss of Hearing, no ringing in the ears, reports dizziness. No nasal drainage or congestion. No epistaxis. No sore throat. Lungs: No shortness of breath, cough, no sputum production. No wheezing. Cardiovascular: No chest pain, no lower extremity edema. No palpitations. No paroxysmal nocturnal dyspnea. No orthopnea. Reports lightheadedness or dizziness. No syncopal episodes. Abdominal: No abdominal pain. No nausea, vomiting. No diarrhea. No constipation. No bloody or tarry stools.. No loss of appetite. Genitourinary: No dysuria, increased frequency, urgency. No urinary retention. Musculoskeletal: No myalgias. No muscle weakness, no gait dysfunction, no ann quent falls. No back pain. No neck pain. Integumentary: No wounds, no lesions. No rash or pruritus. No unusual bruising. No change in hair or nails. Neurologic: No aphasia. No facial droop. No change in mentation. No head injury. No headache. No paralysis. No paresthesia. Psychiatric: No depression. No anxiety. No mood swings. Endocrine: No abnormal blood sugars. No weight change. No excessive sweating or thirst. No cold intolerance. Objective - Vital Signs Vital signs: Vital Signs Temp 98.1 F 03/15/19 07:52 Pulse 71 03/15/19 11:29 Resp 16 03/15/19 11:29 BP 162/90 03/15/19 11:29 Pulse Ox 93 L 03/15/19 11:29 Intake & Output 03/14/19 03/15/19 03/15/19 18:59 06:59 18:59 Intake Total 620 240 Balance 620 240 Weight 101.2 kg Intake: Intake, IV Titration 200 Amount Magnesium Sulfate-D5w Pmx 200 1 gm In Dextrose/Water 1 100ml.bag @ 100 mls/hr IVPB Q1H KERVIN Rx#: [id number] Oral 420 240 Other: # Voids 1 1 1 - Exam General appearance: average body habitus, cooperative, no acute distress - EENT Eyes: anicteric sclerae, EOMI, PERRLA, dentition normal ENT: NA/AT, normal oropharynx No nystagmus - Neck Neck: normal ROM - Respiratory Respiratory: bilateral: CTA, negative: diminished, dullness, rales, rhonchi - Cardiovascular Rhythm: regular Heart sounds: normal: S1, S2 Abnormal Heart Sounds: no systolic murmur, no diastolic murmur, no rub, no S3 Gallop, no S4 Gallop, no click, no other - Gastrointestinal General gastrointestinal: normal bowel sounds, soft - Integumentary Integumentary: normal, normal turgor - Neurologic Neurologic: CNII-XII intact - Musculoskeletal Musculoskeletal: gait normal, strength equal bilaterally - Psychiatric Psychiatric: A&O x's 3, appropriate affect - Labs CBC & Chem 7: 03/13/19 18:30 03/15/19 05:37 Labs: Abnormal Lab Results - Last 24 Hours (Table) 03/14/19 03/14/19 03/14/19 Range/Units 12:34 16:56 20:31 Carbon Dioxide (22-30) mmol/L BUN (9-20) mg/dL Creatinine (0.66-1.25) mg/dL Glucose (74-99) mg/dL POC Glucose (mg/dL) 172 H 111 H 128 H (75-99) mg/dL 03/15/19 03/15/19 03/15/19 Range/Units 05:25 05:37 11:49 Carbon Dioxide 33 H (22-30) mmol/L BUN 25 H (9-20) mg/dL Creatinine 1.46 H (0.66-1.25) mg/dL Glucose 103 H (74-99) mg/dL POC Glucose (mg/dL) 111 H 122 H (75-99) mg/dL Assessment and Plan Plan: 1. Severe vertigo most likely secondary to benign positional vertigo. MRI of the brain report is pending. Cardiology consult and neurology consult appreciated. Occupational therapy to see for Elisa maneuver. 2. History of autonomic dysfunction related diabetes mellitus, with orthostatic changes requiring midodrine 3 times a day. TALITA sanchez 3. Diabetes mellitus type 2 with gastroparesis, neuropathy. Continue NovoLog scale, Levemir 50 units twice daily, gabapentin 400 mg twice daily. Hemoglobin A1c. 4. Mood disorder. Continue Abilify 10 mg daily, Wellbutrin 150 twice a day. 5. Hyperlipidemia. Lipitor 40 mg daily. 6. Hypertension. Coreg 6.25 mg twice daily. 7. Hypomagnesemia, status post replacement. 8. Neuropathy. Continue gabapentin 400 mg twice a day, hydrocodone 7.5/325 3 times a day. 9. Chronic kidney disease stage III. Discharge plan: Home Impression and plan of care have been directed as dictated by the signing physician. Melvi Vieyra nurse practitioner acting as scribe for signing physician.
--- NOTE | 2019-03-15 16:34 | P.CNNES ---
History of Present Illness Consult date: 03/15/19 Reason for Consult: Severe vertigo Chief complaint: Dizziness, weakness and feeling shaky History of Present Illness: HISTORY OF PRESENT ILLNESS: Thank you for allowing me to evaluate Mr. Ravinder Orellana. Mr. Orellana is a 48 year-old man with PMHx of DM, neuropathy, carpel tunnel, borderline bipolar disorder, who presented to [facility] for dizziness and shakiness, consulting Neurology for severe vertigo. Patient states he started having dizziness on Friday, never had any room-spinning sensation, and he felt weak everywhere. No one-sided weakness, numbness or tingling. Denies headache, nausea, vomiting, double/blurry vision. Denies any recent sickness, fever, diarrhea. Endorses medication compliance, and mother is at bedside, with whom patient lives. When patient came to ED, his blood glucose was found to be at 248. Patient continues to have dizziness. Mom states that when patient was home, he had difficulty balancing himself and had difficulty walking, but he's looking much better at this time. Patient underwent MRI brain w/o contrast today, and on my review, there's a lacunar infarct in R posterior internal capsule area. PAST MEDICAL HISTORY: DM, neuropathy, carpel tunnel, borderline bipolar disorder PAST SURGICAL HISTORY: Orthopedic surgery, eye cataract surgery HOME MEDICATIONS: Atorvastatin, Darwin, Lispro, omeprazole, pioglitazone, bupropion, gabaepntin, testosterone, venlafaxine ALLERGIES: Lactose SOCIAL HISTORY: Never smoker. FAMILY HISTORY: Mother with hx of DM. REVIEW OF SYSTEMS: The 14 systems are reviewed and no additional points are identified compared to the review of systems documented history and physical PHYSICAL EXAMINATION: VITAL SIGNS: T 98.1 HR 73 RR 16 BP 133/77 O2 sat 95% on RA GEN.: NAD, pleasant and cooperative HEENT: NCAT, sclera without icterus NECK: Supple, no carotid bruit SKIN AND EXTREMITIES: Warm to touch, no edema NEURO: MENTAL STATUS: Patient alert and oriented to self, place, time. Able to name the current president. Speech fluent, able to name and repeat, following all commands readily. No right and left disorientation, neglect. CRANIAL NERVES II THROUGH XII: II: Pupils are equal and reactive to light symmet rically. No afferent pupillary defect. Visual márquez are intact. III, IV, : No ptosis. Extraocular movements full. No nystagmus. V: Facial sensation intact from V1-3. VII. No clear facial asymmetry. VIII: Hearing intact to finger rub bilaterally. IX, X: Symmetric palate elevation. XI: Shoulder shrug intact. XII: Tongue midline without fasciculation or atrophy. MOTOR: Normal bulk/tone. No pronator drift or tremor. Strength is 5/5 throughout all 4 extremities. SENSORY: Intact to light touch in all 4 extremities. Romberg is negative. REFLEXES: 2+ throughout. Toes are downgoing. COORDINATION: Finger to nose and heel to manriquez intact. No dysmetria. GAIT: Slightly wide-based, difficulty with toe/heel/tandem walking. DIAGNOSTIC TESTING: LABORATORY: WBC 8.5 Hgb 12.1 Platelet 303 Na 143 K 4.3 CL 103 CO2 33 BUN 25 Cr 1.46 Glucose 103 AST 23 ALT 28 AlkPhos 108 Troponin <0.012 urinarlysis 4+ glucose A1C 13.6. TSH 2.860 TC 184 LDL 102 HDL 40 TG 211 IMAGING: TTE 03/15/19: SR. EF 55-60%. RA, LA, RV, LV sizes are normal. Mild LV hypertrophy. Carotid Doppler 03/15/19: there are some intimal thickening without significant flow-limiting stenosis. Minimal plaquing may be present on the left. EKG 03/13/19: SR with occasional PVCs. Cardiac monitoring with no atrial arrhythmia ASSESSMENT: 48 year-old man with PMHx of DM, neuropathy, carpel tunnel, borderline bipolar disorder, who presented to [facility] for dizziness and shakiness, consulting Neurology for severe vertigo. Patient with no vertigo, reporting dizziness, MRI brain showing a lacunar infarct in the R posterior internal capsule area. Likely etiology diabetes, small vessel disease. A1C 13.6% RECOMMENDATIONS: 1. ASA 81mg qday and Plavix 75mg qday (dual antiplatelet therapy for 3 weeks per POINT trial, then Aspirin 81mg qday only) 2. Atorvastatin 80mg qhs 3. PT/OT/ST per protocol 4. Discussed with patient about stroke prevention guidelines. Medication compliance, hypertension/diabetes control, lifestyle changes including no smoking, drinking in moderation, losing weight, exercising, eating healthier 5. Patient needs to follow up with neurologist as outpatient with her 1-2 weeks of discharge 6. Neurology will sign off at this time. Please feel free to contact Neurology again if with additional questions or concerns. Past Medical History Past Medical History: Diabetes Mellitus Additional Past Medical History / Comment(s): neuropathy carpel tunnel borderline bipolar History of Any Multi-Drug Resistant Organisms: MRSA Date of last positivie culture/infection: 04/22/16 MDRO Source:: Right Hand Past Surgical History: Orthopedic Surgery Additional Past Surgical History / Comment(s): Colonscopy eye cataract surg Past Anesthesia/Blood Transfusion Reactions: No Reported Reaction Past Psychological History: Anxiety, Bipolar, Depression Smoking Status: Never smoker Past Alcohol Use History: None Reported Additional Past Alcohol Use History / Comment(s): Patient is a lifelong nonsmoker. He lives with mother Past Drug Use History: None Reported - Past Family History Mother Family Medical History: Diabetes Mellitus Additional Family Medical History / Comment(s): Mother is alive at age 61 with history of diabetes. Patient does not have any contact with his father. Brother(s) Additional Family Medical History / Comment(s): Patient has 2 brothers and one has history of diabetes and one has no major medical problems. Patient does not have any sisters. Patient does not have any children. Medications and Allergies Home Medications Medication Instructions Recorded Confirmed Type Atorvastatin [Lipitor] 40 mg PO HS 09/04/16 03/13/19 History HYDROcodone/APAP 7.5-325MG [[place] 1 tab PO TID 03/05/17 03/13/19 History 7.5-325] Omeprazole 20 mg PO DAILY 03/05/17 03/13/19 History buPROPion HCL [buPROPion HCL SR] 150 mg PO BID 03/05/17 03/13/19 History Gabapentin [Neurontin] 400 mg PO BID 09/24/17 03/13/19 History Insulin Glargine,Hum.rec.anlog 50 unit SQ BID 05/18/18 03/13/19 History [John Guzman U-100] ARIPiprazole [Abilify] 10 mg PO DAILY 03/13/19 03/13/19 History Cyclobenzaprine [Flexeril] 5 mg PO TID PRN 03/13/19 03/13/19 History Insulin Lispro [Admelog] See Protocol SQ AC-TID 03/13/19 03/13/19 History Midodrine HCl [ProAmatine] 10 mg PO TID 03/13/19 03/13/19 History Allergies Allergy/AdvReac Type Severity Reaction Status Date / Time lactose AdvReac Nausea & Verified 03/13/19 23:26 Vomiting & Diarrhea Physical Examination - Vital Signs Vital Signs: Vital Signs Temp Pulse Pulse Resp BP Pulse Ox 03/15/19 07:52 98.1 F 73 16 133/77 95 03/15/19 04:00 97.3 F L 72 18 151/90 93 L 03/14/19 23:22 79 76 18 136/80 95 03/14/19 20:00 97.5 F L 75 79 18 148/72 95 03/14/19 16:20 97.8 F 79 79 18 158/97 92 L 03/14/19 11:45 98.2 F 87 87 18 144/96 92 L Intake and Output 03/14/19 03/15/19 03/15/19 22:59 06:59 14:59 Intake Total 220 240 Balance 220 240 Intake: Oral 220 240 Other: # Voids 1 1 1 Weight 101.2 kg Results - Laboratory Findings CBC and BMP: 03/13/19 18:30 03/15/19 05:37 Abnormal Lab Findings: Abnormal Labs 03/13/19 03/13/19 03/13/19 18:02 18:30 18:30 RBC 4.26 L Hgb 12.1 L Hct 34.9 L Carbon Dioxide BUN 34 H Creatinine 1.49 H Glucose 261 H POC Glucose (mg/dL) 248 H Magnesium Urine Protein Urine Glucose (UA) Hyaline Casts Urine Mucus 03/13/19 03/13/19 03/14/19 19:21 23:20 06:12 RBC Hgb Hct Carbon Dioxide BUN Creatinine Glucose POC Glucose (mg/dL) 201 H 222 H Magnesium Urine Protein 1+ H Urine Glucose (UA) 4+ H Hyaline Casts 4 H Urine Mucus Rare H 03/14/19 03/14/19 03/14/19 07:58 12:34 16:56 RBC Hgb Hct Carbon Dioxide BUN Creatinine Glucose POC Glucose (mg/dL) 172 H 111 H Magnesium 1.5 L Urine Protein Urine Glucose (UA) Hyaline Casts Urine Mucus 03/14/19 03/15/19 03/15/19 20:31 05:25 05:37 RBC Hgb Hct Carbon Dioxide 33 H BUN 25 H Creatinine 1.46 H Glucose 103 H POC Glucose (mg/dL) 128 H 111 H Magnesium Urine Protein Urine Glucose (UA) Hyaline Casts Urine Mucus
[2019-03-15] MEDS: CLOPIDOGREL 75 MG TAB PO SCH (16:50)
[2019-03-15] MEDS: ASPIRIN 81 MG PO SCH (16:50)
[2019-03-15 17:09] LABS: Glucose,Whole Blood 114 mg/dL (75-99)
[2019-03-15 19:24] LABS: Hemoglobin A1C 9.4 % (4.0-6.0)
[2019-03-15 20:43] LABS: Glucose,Whole Blood 175 mg/dL (75-99)
[2019-03-15] MEDS: ATORVASTATIN 40 MG TAB PO SCH (20:59)
--- NOTE | 2019-03-15 21:49 | MR ---
EXAMINATION TYPE: MR brain and iac wo/w con DATE OF EXAM: 03/15/2019 COMPARISON: HISTORY: Vertigo, severe nausea TECHNIQUE: Multiplanar, multisequence images of the brain and brainstem, cerebellopontine angles with small fiel d-of-view and high resolution images performed without and with IV contrast, utilizing 10 mL intraven ous Gadavist . FINDINGS: There is some motion on the exam. Diffusion weighted images demonstrate small focus of rest ricted diffusion in the right basal ganglia, globus pallidus near internal capsule posterior limb jenny ction region. There is no extra-axial fluid collection, corresponding hyperintensity is noted on inv ersion recovery T2-weighted sequences. Small focus of encephalomalacia present within the posterior aspect of the putamen on the left The ventricular system and cisternal spaces are normal in size and appearance. The brain volume is age appropriate. Midline structures demonstrate linear focus of encephalomalacia along the anterior corpus callosum. Cerebellopontine angles are normal, no abnormal enhancement along the internal auditory canals The cr aniocervical junction appears within normal limits. Post contrast images demonstrate parenchymal enh ancement at the site of patient's restricted diffusion in a slightly larger distribution. The dural v enous sinuses appear patent. The visualized sinuses are remarkable for mucus retention cyst within th e left x-ray sinus, there is bilateral mucosal thickening in the maxillary sinuses and the globes are intact. IMPRESSION: Findings compatible with subacute infarct as described. Sinus disease. A Red level critical message alert has been initiated for Justine Guillen MD via the [employer] Critical Results System on 03/15/2019 9:46 PM. This message alert has been sent to Justine Guillen MD via the preferences provided by the clinician for the receipt of Radiology Critical Findings. Message ID [id number].
[2019-03-16] MEDS: CARVEDILOL 6.25 MG TAB PO SCH (06:32)
[2019-03-16] MEDS: PANTOPRAZOLE 40 MG TABLET PO SCH (06:32)
[2019-03-16] MEDS: INSULIN DETEMIR (LEVEMIR) 100 UNIT/ML SYR SQ SCH (06:33)
[2019-03-16] MEDS: INSULIN ASPART (NovoLOG) 100 UNIT/ML VIAL SQ SCH ×2 (06:34→13:32)
[2019-03-16 06:35] LABS: Glucose,Whole Blood 117 mg/dL (75-99)
[2019-03-16 08:37] VITALS: PULSE 83; RESP 16; TEMP 98.1
[2019-03-16] MEDS: ARIPiprazole 10 MG TAB PO SCH (09:07)
[2019-03-16] MEDS: CLOPIDOGREL 75 MG TAB PO SCH (09:07)
[2019-03-16] MEDS: buPROPion SR 150 MG TABLET.ER PO SCH (09:07)
[2019-03-16] MEDS: HYDROcodone/APAP 7.5-325MG 1 EACH TAB PO SCH ×2 (09:07→16:08)
[2019-03-16] MEDS: MECLIZINE 25 MG TAB PO SCH ×2 (09:08→16:08)
[2019-03-16] MEDS: GABAPENTIN 400 MG CAP PO SCH (09:08)
[2019-03-16] MEDS: ASPIRIN 81 MG PO SCH (09:08)
[2019-03-16 10:11] VITALS: BMI 32.0
[2019-03-16 11:50] LABS: Glucose,Whole Blood 134 mg/dL (75-99)
[2019-03-16 13:03] VITALS: BP 154/94
--- NOTE | 2019-03-16 14:34 | P.DS ---
Providers Date of admission: 03/15/19 11:00 Expected date of discharge: 03/16/19 Attending physician: Justine Guillen Consults: 03/13/19 22:21 Consult Physician Urgent Consulting Provider: Dave Stone Consult Reason/Comments: ectopy, dizziness Do you want consulting provider notified?: Yes, Notify in am 03/14/19 16:17 Consult Physician Routine Consulting Provider: Wil Beatty Consult Reason/Comments: severe vertigo Do you want consulting provider notified?: Yes, Notify in am Primary care physician: Justine Wilmer [facility] Course: This is a 48-year-old gentleman well known to my practice. He has underlying history of diabetes mellitus type 2 with complications, gastroparesis, diabetic neuropathy, hypertension hyperlipidemia, admitted through the emergency room secondary to see significant dizziness, this is persistent, for the past 48 hours, with associated nausea and vomiting, no upper respiratory infections, no diplopia, no focal neurologic deficits, no cranial nerve palsies. Blood sugars are in the low 200s at home, without any hypoglycemic event. He was subsequently seen in emergency room secondary to above symptoms, however is noted to have multiple PVCs and Layne's, trigeminy and ectopies, for which patient was admitted for an observation with cardiology consultation. Patient denies any history of seizure disorder, he has autonomic dysfunction, for which he is on maintenance with the drain. Patient is vertiginous with head movement, not only with standing position. Examination is normal today, In the emergency room. He was noted to have hypomagnesemia, with normal troponins, EKG shows multiple PVCs, bigeminy and trigeminy, no acute ST-T wave changes, no neurology is available and consult this weekend, EEG of the brain to be done, MRI with the internal auditory canal of the brain would be done, along with physical therapy with This maneuver, meclizine for vertigo 03/15: Patient underwent MRI of the brain this morning and report is pending. Patient apparently returned from the MRI was feeling dizzy and orthostatics were positive. TALITA hose were ordered by cardiology. Patient states he is still feeling dizzy when he stands. He denies any chest pain or visual changes. He also states he is dizzy with movement. No nystagmus noted on exam. Occupational therapy to see the patient regarding Elisa maneuver. Repeat lab work reveals BUN of 25 and creatinine 1.46, CO2 33. Blood sugars are between 103 and 122. TSH is 2.860, magnesium 2.1. Patient has been afebrile, blood pressure 162/90, heart rate 71, pulse ox 93% on room air. Anticipate possible discharge tomorrow. 03/16: MRI of the brain was compatible with subacute infarct. Neurology has recommended dual antiplatelet therapy for 3 weeks with aspirin and Plavix and then aspirin 81 mg daily only, atorvastatin 80 mg at bedtime, follow up with neurologist. We have asked cardiology to arrange event monitor for home. Patient continues to complain of dizziness. No chest pain or shortness of breath. He has been afebrile, blood pressure 176/86, pulse ox 94% on room air, heart rate 83. Blood sugars are running between 117 and 175. Hemoglobin A1c is 9.4. Patient will be discharged home today in stable condition. Discharge diagnoses: 1. Severe vertigo most likely secondary to benign positional vertigo. 2. Subacute ischemic cerebral infarct. 3. History of autonomic dysfunction related diabetes mellitus, with orthostatic changes. 4. Diabetes mellitus type 2 with gastroparesis, neuropathy. 5. Mood disorder. 6. Hyperlipidemia. 7. Hypertension. 8. Hypomagnesemia, status post replacement. 9. Neuropathy. 10. Chronic kidney disease stage III. Discharge plan: Home with [facility]. Impression and plan of care have been directed as dictated by the signing physician. Melvi Vieyra nurse practitioner acting as scribe for signing physician. Patient Condition at Discharge: Good Plan - Discharge Summary Discharge Rx Participant: No New Discharge Prescriptions: New Meclizine [Antivert] 25 mg PO TID tab Aspirin 81 mg PO DAILY chew Carvedilol [Coreg*] 12.5 mg PO BID-W/MEALS #60 tab Clopidogrel [Plavix] 75 mg PO DAILY #21 tab Continue Atorvastatin [Lipitor] 40 mg PO HS Omeprazole 20 mg PO DAILY HYDROcodone/APAP 7.5-325MG [[place] 7.5-325] 1 tab PO TID buPROPion HCL [buPROPion HCL SR] 150 mg PO BID Gabapentin [Neurontin] 400 mg PO BID Insulin Glargine,Hum.rec.anlog [John Guzman U-100] 50 unit SQ BID Insulin Lispro [Admelog] See Protocol SQ AC-TID Cyclobenzaprine [Flexeril] 5 mg PO TID PRN PRN Reason: Muscle Spasm Midodrine HCl [ProAmatine] 10 mg PO TID ARIPiprazole [Abilify] 10 mg PO DAILY Discharge Medication List Atorvastatin [Lipitor] 40 mg PO HS 09/04/16 [History] HYDROcodone/APAP 7.5-325MG [[place] 7.5-325] 1 tab PO TID 03/05/17 [History] Omeprazole 20 mg PO DAILY 03/05/17 [History] buPROPion HCL [buPROPion HCL SR] 150 mg PO BID 03/05/17 [History] Gabapentin [Neurontin] 400 mg PO BID 09/24/17 [History] Insulin Glargine,Hum.rec.anlog [Basaglar Kwikpen U-100] 50 unit SQ BID 05/18/18 [History] ARIPiprazole [Abilify] 10 mg PO DAILY 03/13/19 [History] Cyclobenzaprine [Flexeril] 5 mg PO TID PRN 03/13/19 [History] Insulin Lispro [Admelog] See Protocol SQ AC-TID 03/13/19 [History] Midodrine HCl [ProAmatine] 10 mg PO TID 03/13/19 [History] Aspirin 81 mg PO DAILY chew 03/16/19 [Rx] Carvedilol [Coreg*] 12.5 mg PO BID-W/MEALS #60 tab 03/16/19 [Rx] Clopidogrel [Plavix] 75 mg PO DAILY #21 tab 03/16/19 [Rx] Meclizine [Antivert] 25 mg PO TID tab 03/16/19 [Rx] Follow up Appointment(s)/Referral(s): Dave Stone MD [STAFF PHYSICIAN] - 04/05/19 4:00 pm (Friday with CREDIT AND COLLECTIONS ANALYST) Justine Guillen MD [Primary Care Provider] - 1 Week (Spoke to hotel or motel receptionist. Office will call with appointment time) Suni Gomez MD [STAFF PHYSICIAN] - 03/24/19 10:30 am (Friday) Discharge Disposition: HOME WITH HOME HEALTH SERVICES
--- NOTE | 2019-03-16 15:24 | P.PN ---
Subjective Progress Note Date: 03/16/19 This is a pleasant 48-year-old gentleman with a past medical history of diabetes, hyperlipidemia, gastroparesis and hypotension for which he is on Midodrine at home but looking back in previous admissions and emergency department visits his blood pressure has always been elevated. He does suffer from chronic recurrent dizziness. He presented to the emergency department with complaints of worsening dizziness, weakness and nausea with one episode of vomiting occurring over the prior 24-48 hours. Upon presentation, EKG and rhythm strip showed sinus rhythm with PVCs, frequent times with some bigeminy and trigeminy. Blood pressure has been quite elevated since admission and has been quite elevated during previous admissions and ER visits. Most recent echocardiogram from April 2017 showed a normal LV systolic function with an ejection fraction between 55-60% with mild MR, mild TR and borderline pulmonary hypertension with an RVSP of 38.65 mmHg. He did undergo dobutamine stress echo about a year ago which showed no evidence of ischemia. on the monitor today the patient is in a normal sinus rhythm, very rare PVC. Sodium 143, potassium 4.3, BUN 25 creatinine 1.4 magnesium 2.1. Patient denies any dizziness or lightheadedness today. Echocardiogram with Doppler study revealed a normal left ventricular systolic function. 03/16/2019 MRI of the brain was performed which revealed a subacute infarct. Patient was initiated on Plavix and aspirin. Recommendation also was for the patient to be monitored, he will have an event monitor on discharge. Blood pressure today 154/90 with a heart rate in the 80s, 95% on room air. No further orthostatics documented, although they were positive last evening. We will put the patient on the midodrine. Objective - Vital Signs Vital signs: Vital Signs Temp 98.1 F 03/16/19 08:00 Pulse 83 03/16/19 08:00 Resp 16 03/16/19 08:00 BP 154/94 03/16/19 12:00 Pulse Ox 94 L 03/16/19 08:00 Intake & Output 03/15/19 03/16/19 03/16/19 18:59 06:59 18:59 Intake Total 924 360 Balance 924 360 Weight 95.6 kg 95.6 kg Intake: Oral 924 360 Other: # Voids 1 1 1 - Exam PHYSICAL EXAMINATION: HEENT: Head is atraumatic, normocephalic. Pupils equal, round. Neck is supple. There is no elevated jugular venous pressure. HEART EXAMINATION: Heart sounds regular, S1 and S2 normal. No murmur or gallop heard. CHEST EXAMINATION: Lungs are clear to auscultation and precussion. No chest wall tenderness is noted on palpation or with deep breathing. ABDOMEN: Soft, nontender. Bowel sounds are heard. No organomegaly noted. EXTREMITIES: 2+ peripheral pulses with no evidence of peripheral edema and no calf tenderness noted. NEUROLOGIC patient is awake, alert and oriented x3. - Labs CBC & Chem 7: 03/13/19 18:30 03/15/19 05:37 Labs: Abnormal Lab Results - Last 24 Hours (Table) 03/15/19 03/15/19 03/15/19 Range/Units 05:37 17:08 20:42 POC Glucose (mg/dL) 114 H 175 H (75-99) mg/dL Hemoglobin A1c 9.4 H (4.0-6.0) % 03/16/19 03/16/19 Range/Units 06:34 11:48 POC Glucose (mg/dL) 117 H 134 H (75-99) mg/dL Hemoglobin A1c (4.0-6.0) % Assessment and Plan Plan: Assessment: #1 symptoms of weakness, dizziness and nausea #2 frequent PVCs, improving after magnesium was #3 diabetes mellitus with gastroparesis #4 hypertension, apparently previously hypotensive and on Midodrine at home #5 hyperlipidemia #6 hypomagnesemia, replace #7 chronic renal failure Plan Positive a subacute stroke on MRI. From our perspective the patient may be able to be discharged home. We would recommend an event monitor on discharge. We will also resume the midodrine. DNP note has been reviewed, I agree with a documented findings and plan of care. Patient was seen and examined.
[2019-03-16] MEDS ORDERED: CARVEDILOL 12.5 MG TAB PO SCH (17:30)
== END 2019-03-16 16:32 | disposition home or self-care (01) | DRG 149 ==
LOC: EC 17:51 → 1SOBS 22:21 → 3SCARD 23:54 → OBSVTOIN 03-15 11:00
PROVIDERS: ADMIT Family Medicine; ATTEND Family Medicine
DX: H81.10 Benign paroxysmal vertigo, unspecified ear (principal); E11.22 Type 2 diabetes mellitus with diabetic chronic kidney disease; E11.43 Type 2 diabetes mellitus with diabetic autonomic (poly)neuropathy; I27.20 Pulmonary hypertension, unspecified; I95.9 Hypotension, unspecified; E11.42 Type 2 diabetes mellitus with diabetic polyneuropathy; E11.65 Type 2 diabetes mellitus with hyperglycemia; E83.42 Hypomagnesemia; K31.84 Gastroparesis; I08.1 Rheumatic disorders of both mitral and tricuspid valves; N18.3 Chronic kidney disease, stage 3 (moderate); E78.5 Hyperlipidemia, unspecified; F41.9 Anxiety disorder, unspecified; R00.8 Other abnormalities of heart beat; I12.9 Hypertensive chronic kidney disease with stage 1 through stage 4 chronic kidney disease, or unspecified chronic kidney disease; I49.3 Ventricular premature depolarization; F32.9 Major depressive disorder, single episode, unspecified; I95.1 Orthostatic hypotension; Z79.4 Long term (current) use of insulin; Z79.82 Long term (current) use of aspirin; Z79.899 Other long term (current) drug therapy; Z86.14 Personal history of Methicillin resistant Staphylococcus aureus infection; Z98.49 Cataract extraction status, unspecified eye; Z96.1 Presence of intraocular lens; Z83.3 Family history of diabetes mellitus
CPT/HCPCS: 36415; 70553; 80048; 80053; 81001; 83036; 83735; 84443; 84484; 85025; 93005; 93306; 93880; 94760; 96361; 96374; 96375; 99285

== ENCOUNTER → 2019-04-09 | Outpatient (CLI) | payer OTHER | END | disposition home or self-care (01) | LOC: RADCTMAIN 13:03 | PROVIDERS: ATTEND Psychiatry & Neurology Neurology | DX: Z13.89 Encounter for screening for other disorder (principal) | CPT/HCPCS: 82565; 84520 ==

== ENCOUNTER 2019-05-08 16:45 | Emergency (ER) | payer OTHER ==
[2019-05-08 16:56] VITALS: RESP 18; TEMP 98
[2019-05-08] MEDS ORDERED: SODIUM CHLORIDE 0.9% 500 ML 500 ML IV STA (17:02)
[2019-05-08 17:35] LABS: Albumin 4.3 g/dL (3.5-5.0); Calcium 9.3 mg/dL (8.4-10.2); Total Bilirubin 0.4 mg/dL (0.2-1.3); Total Protein 7.3 g/dL (6.3-8.2)
[2019-05-08 17:40] LABS: Potassium 4.7 mmol/L (3.5-5.1)
[2019-05-08 17:42] LABS: Partial Thromboplastin Time 24.4 sec (22.0-30.0); Prothrombin Time 10.2 sec (9.0-12.0)
[2019-05-08 17:43] LABS: Creatine Kinase 116 U/L (55-170)
--- NOTE | 2019-05-08 17:44 | CT ---
EXAMINATION TYPE: CT brain wo con for TPA DATE OF EXAM: 05/08/2019 COMPARISON: MR brain 03/15/2019 HISTORY: neuro deficits, hx stroke CT DLP: 1106.8 mGycm Automated exposure control for dose reduction was used. FINDINGS: There is no acute intracranial hemorrhage, mass effect, or midline shift identified. The ventricles and sulci are within normal limits in size. The globes are intact and the visualized sinuses are kaitlynn ar. Hypodensity compatible with small chronic lacunar infarct right basal ganglia. IMPRESSION: No acute intracranial hemorrhage, mass effect, or midline shift is seen.
[2019-05-08 17:56] LABS: Creatine Kinase MB 2.6 ng/mL (0.0-2.4); Troponin I <0.012 ng/mL (0.000-0.034)
[2019-05-08] MEDS ORDERED: ASPIRIN 325 MG TAB PO STA (17:57)
--- NOTE | 2019-05-08 18:05 | ED ---
General Adult HPI - General Chief complaint: Neuro Symptoms/Deficit Stated complaint: fall Time Seen by Provider: 05/08/19 16:57 Source: patient, family, RN notes reviewed, old records reviewed Mode of arrival: ambulatory Limitations: no limitations - History of Present Illness Initial comments: 48-year-old male presenting with left leg numbness and weakness. Patient states he woke with these symptoms at approximately 10 AM. He is presenting at 5 PM. He states he went to bed at 11 PM last night with no symptoms. He does have history of diabetes, hypertension and previous strokes. His previous stroke was in the fall of 2019 which left him with some mild dysarthria, no limb weakness. He denies headache. Denies any symptoms on his right, no symptoms in his left arm. No reported facial droop. No chest pain. No abdominal pain no fever. - Related Data Home Medications Medication Instructions Recorded Confirmed Atorvastatin [Lipitor] 40 mg PO HS 09/04/16 03/13/19 HYDROcodone/APAP 7.5-325MG [[place] 1 tab PO TID 03/05/17 03/13/19 7.5-325] Omeprazole 20 mg PO DAILY 03/05/17 03/13/19 buPROPion HCL [buPROPion HCL SR] 150 mg PO BID 03/05/17 03/13/19 Gabapentin [Neurontin] 400 mg PO BID 09/24/17 03/13/19 Insulin Glargine,Hum.rec.anlog 50 unit SQ BID 05/18/18 03/13/19 [Basagljanice Guzman U-100] ARIPiprazole [Abilify] 10 mg PO DAILY 03/13/19 03/13/19 Cyclobenzaprine [Flexeril] 5 mg PO TID PRN 03/13/19 03/13/19 Insulin Lispro [Admelog] See Protocol SQ AC-TID 03/13/19 03/13/19 Midodrine HCl [ProAmatine] 10 mg PO TID 03/13/19 03/13/19 Previous Rx's Medication Instructions Recorded Aspirin 81 mg PO DAILY chew 03/16/19 Carvedilol [Coreg*] 12.5 mg PO BID-W/MEALS #60 tab 03/16/19 Clopidogrel [Plavix] 75 mg PO DAILY #21 tab 03/16/19 Meclizine [Antivert] 25 mg PO TID tab 03/16/19 Allergies Allergy/AdvReac Type Severity Reaction Status Date / Time lactose AdvReac Nausea & Verified 03/13/19 23:26 Vomiting & Diarrhea Review of Systems ROS Statement: Those systems with pertinent positive or pertinent negative responses have been documented in the HPI. ROS Other: All systems not noted in ROS Statement are negative. Past Medical History Past Medical History: CVA/TIA, Diabetes Mellitus Additional Past Medical History / Comment(s): neuropathy carpel tunnel borderline bipolar History of Any Multi-Drug Resistant Organisms: MRSA Date of last positivie culture/infection: 04/22/16 MDRO Source:: Right Hand Past Surgical History: Orthopedic Surgery Additional Past Surgical History / Comment(s): Colonscopy eye cataract surg Past Anesthesia/Blood Transfusion Reactions: No Reported Reaction Past Psychological History: Anxiety, Bipolar, Depression Smoking Status: Never smoker Past Alcohol Use History: None Reported Past Drug Use History: None Reported - Past Family History Mother Family Medical History: Diabetes Mellitus Additional Family Medical History / Comment(s): Mother is alive at age 61 with history of diabetes. Patient does not have any contact with his father. Brother(s) Additional Family Medical History / Comment(s): Patient has 2 brothers and one has history of diabetes and one has no major medical problems. Patient does not have any sisters. Patient does not have any children. General Exam Limitations: no limitations General appearance: alert, in no apparent distress Head exam: Present: atraumatic, normocephalic Eye exam: Present: normal appearance, PERRL ENT exam: Present: normal exam Neck exam: Present: normal inspection. Absent: tenderness, meningismus Respiratory exam: Present: normal lung sounds bilaterally. Absent: respiratory distress, wheezes Cardiovascular Exam: Present: regular rate, normal rhythm GI/Abdominal exam: Present: soft. Absent: distended, tenderness, guarding, rebound Extremities exam: Present: normal inspection, normal capillary refill. Absent: pedal edema Back exam: Present: normal inspection Neurological exam: Present: alert, oriented X3, motor sensory deficit (Left leg numbness, left leg weakness, total NIH of 4) Psychiatric exam: Present: normal affect, normal mood Skin exam: Present: warm, dry, intact. Absent: cyanosis, diaphoretic Course Vital Signs 05/08/19 05/08/19 05/08/19 16:52 17:00 17:15 Temperature 98 F Pulse Rate 95 93 92 Respiratory 18 18 18 Rate Blood Pressure 171/110 180/120 205/119 O2 Sat by Pulse 97 95 Oximetry 05/08/19 17:30 Temperature Pulse Rate 92 Respiratory 18 Rate Blood Pressure 179/119 O2 Sat by Pulse 97 Oximetry EKG Findings - EKG Comments: EKG Findings:: EKG: Normal sinus rhythm, LVH, no ST segment elevation. Rate of 95, CT interval 148, QRS duration 76, QTC 454 Medical Decision Making - Medical Decision Making 48-year-old male presenting with symptoms concerning for acute CVA. Patient immediately taken to CT. I discussed case with Dr. Vasquez initially at 1715, and then again at 1728. Head CT performed which is negative for intracranial hemorrhage or mass effect. CT angiography has been reviewed by stroke neurologist, no critical stenosis or thrombus. Radiology interpretation is pending. No further intervention at this time. Usual stroke management including aspirin and IV fluids as well as permissive hypertension. Patient has normal CBC, CMP showing hyperglycemia and elevated creatinine which is at baseline for this patient. Case is discussed with the ER physician at [facility] Dr. Morel, she will accept transfer for neurology evaluation as there is no neurology at this institution currently. - Lab Data Result diagrams: 05/08/19 17:08 05/08/19 17:08 Lab Results 05/08/19 05/08/19 05/08/19 Range/Units 17:08 17:08 17:08 WBC 9.3 (3.8-10.6) k/uL RBC 4.28 L (4.30-5.90) m/uL Hgb 12.0 L (13.0-17.5) gm/dL Hct 35.4 L (39.0-53.0) % MCV 82.5 (80.0-100.0) fL MCH 28.0 (25.0-35.0) pg MCHC 33.9 (31.0-37.0) g/dL RDW 13.0 (11.5-15.5) % Plt Count 300 (150-450) k/uL Neutrophils % 75 % Lymphocytes % 18 % Monocytes % 4 % Eosinophils % 2 % Basophils % 0 % Neutrophils # 7.0 (1.3-7.7) k/uL Lymphocytes # 1.7 (1.0-4.8) k/uL Monocytes # 0.3 (0-1.0) k/uL Eosinophils # 0.2 (0-0.7) k/uL Basophils # 0.0 (0-0.2) k/uL PT (9.0-12.0) sec INR (<1.2) APTT (22.0-30.0) sec Sodium 140 (137-145) mmol/L Potassium 4.7 (3.5-5.1) mmol/L Chloride 101 (98-107) mmol/L Carbon Dioxide 30 (22-30) mmol/L Anion Gap 9 mmol/L BUN 30 H (9-20) mg/dL Creatinine 1.74 H (0.66-1.25) mg/dL Est GFR (CKD-EPI)AfAm 53 (>60 ml/min/1.73 sqM) Est GFR (CKD-EPI)NonAf 46 (>60 ml/min/1.73 sqM) Glucose 306 H (74-99) mg/dL Calcium 9.3 (8.4-10.2) mg/dL Total Bilirubin 0.4 (0.2-1.3) mg/dL AST 24 (17-59) U/L ALT 19 (4-49) U/L Alkaline Phosphatase 121 (38-126) U/L Total Creatine Kinase 116 (55-170) U/L CK-MB (CK-2) 2.6 H (0.0-2.4) ng/mL CK-MB (CK-2) Rel Index 2.2 Troponin I <0.012 (0.000-0.034) ng/mL Total Protein 7.3 (6.3-8.2) g/dL Albumin 4.3 (3.5-5.0) g/dL 05/08/19 Range/Units 17:08 WBC (3.8-10.6) k/uL RBC (4.30-5.90) m/uL Hgb (13.0-17.5) gm/dL Hct (39.0-53.0) % MCV (80.0-100.0) fL MCH (25.0-35.0) pg MCHC (31.0-37.0) g/dL RDW (11.5-15.5) % Plt Count (150-450) k/uL Neutrophils % % Lymphocytes % % Monocytes % % Eosinophils % % Basophils % % Neutrophils # (1.3-7.7) k/uL Lymphocytes # (1.0-4.8) k/uL Monocytes # (0-1.0) k/uL Eosinophils # (0-0.7) k/uL Basophils # (0-0.2) k/uL PT 10.2 (9.0-12.0) sec INR 1.0 (<1.2) APTT 24.4 (22.0-30.0) sec Sodium (137-145) mmol/L Potassium (3.5-5.1) mmol/L Chloride (98-107) mmol/L Carbon Dioxide (22-30) mmol/L Anion Gap mmol/L BUN (9-20) mg/dL Creatinine (0.66-1.25) mg/dL Est GFR (CKD-EPI)AfAm (>60 ml/min/1.73 sqM) Est GFR (CKD-EPI)NonAf (>60 ml/min/1.73 sqM) Glucose (74-99) mg/dL Calcium (8.4-10.2) mg/dL Total Bilirubin (0.2-1.3) mg/dL AST (17-59) U/L ALT (4-49) U/L Alkaline Phosphatase (38-126) U/L Total Creatine Kinase (55-170) U/L CK-MB (CK-2) (0.0-2.4) ng/mL CK-MB (CK-2) Rel Index Troponin I (0.000-0.034) ng/mL Total Protein (6.3-8.2) g/dL Albumin (3.5-5.0) g/dL Critical Care Time Critical Care Time: Yes Total Critical Care Time: 35 Disposition Clinical Impression: Cerebrovascular accident (CVA), Chronic kidney disease, Diabetes mellitus Disposition: OTHER INSTITUTION NOT DEFINED Condition: Serious Is patient prescribed a controlled substance at d/c from ED?: No Referrals: Justine Guillen MD [Primary Care Provider] - 1-2 days Time of Disposition: 18:05 - Out of Hospital Transfer - Req. Specs Out of Hospital Transfer - Requested Specifics: Other Emergency Center (Transferred to [facility]
[2019-05-08 18:16] LABS: Basophils % (A) 0 %; Eosinophils # (A) 0.2 k/uL (0-0.7); Eosinophils % (A) 2 %; HCT 35.4 % (39.0-53.0); Lymphocytes # (A) 1.7 k/uL (1.0-4.8); Lymphocytes % (A) 18 %; MCHC 33.9 g/dL (31.0-37.0); MCV 82.5 fL (80.0-100.0); Mean Platelet Volume 6.4; Monocytes # (A) 0.3 k/uL (0-1.0); Monocytes % (A) 4 %; Neutrophils % (A) 75 %; Platelet Count 300 k/uL (150-450); RBC 4.28 m/uL (4.30-5.90); WBC 9.3 k/uL (3.8-10.6)
--- NOTE | 2019-05-08 18:21 | CT ---
EXAMINATION TYPE: CT angio head neck DATE OF EXAM: 05/08/2019 HISTORY: Neuro deficits, stroke suspected. Hx stroke COMPARISON: CT brain same date, brain 03/15/2019, carotid Doppler duplex 03/15/2019 and chest x-ray s dmitri date CT DLP: 660 mGycm. Automated Exposure Control for Dose Reduction was Utilized. TECHNIQUE: CTA scan of the neck is performed with IV Contrast, patient injected with 65 mL of Isovue 370, axial images are obtained, coronal and sagittal reformatted images are reviewed. Three-D recons tructed images are created on an independent workstation and reviewed. FINDINGS: Carotid/Vascular Structures: The innominate, left and right common carotid, left and right subclavian arteries are patent. No evident stenosis of the proximal internal carotid arteries. Atheromatous tommie nges noted. Vertebral arteries are patent, left vertebral artery is dominant. [place] shows no aneurysm, dissection, or embolus. Other: Root of the aorta approximately 4.2 cm. Heart may be enlarged, some scarring suspected in the right upper lobe. Inflammation in the left maxillary sinus. IMPRESSION: Mild atheromatous changes, dilation root of aorta.
--- NOTE | 2019-05-08 18:30 | XR ---
EXAMINATION TYPE: XR chest 1V portable DATE OF EXAM: 05/08/2019 COMPARISON: Prior chest x-ray dated 04/24/2017 HISTORY: Altered mental status TECHNIQUE: Single frontal view of the chest is obtained. FINDINGS: There is no focal air space opacity, pleural effusion, or pneumothorax seen. The cardiac silhouette size is within normal limits. The osseous structures are intact. Patient is rotated. Pro minence of the ascending aorta is noted. There are overlying cardiac leads. Right hemidiaphragm mildl y elevated. IMPRESSION: No definite acute abnormality. Ascending aortic aneurysm.
[2019-05-08 18:42] VITALS: BP 162/105; PULSE 90
== END 2019-05-08 18:30 | disposition short-term general hospital (02) ==
LOC: EC 16:45
DX: I63.9 Cerebral infarction, unspecified (principal); R29.704 NIHSS score 4; N18.9 Chronic kidney disease, unspecified; E11.22 Type 2 diabetes mellitus with diabetic chronic kidney disease; E11.65 Type 2 diabetes mellitus with hyperglycemia; R79.89 Other specified abnormal findings of blood chemistry; I12.9 Hypertensive chronic kidney disease with stage 1 through stage 4 chronic kidney disease, or unspecified chronic kidney disease; E11.40 Type 2 diabetes mellitus with diabetic neuropathy, unspecified; F31.9 Bipolar disorder, unspecified; F41.9 Anxiety disorder, unspecified; Z91.011 Allergy to milk products; Z79.4 Long term (current) use of insulin; Z79.891 Long term (current) use of opiate analgesic; Z79.899 Other long term (current) drug therapy; Z86.14 Personal history of Methicillin resistant Staphylococcus aureus infection; Z83.3 Family history of diabetes mellitus
CPT/HCPCS: 36415; 93005; 80053; 82550; 82553; 84484; 85025; 85610; 85730; 71045; 70496; 70450; 70498; 99291; Q9967

== ENCOUNTER 2019-07-18 14:50 | Emergency (ER) | payer OTHER ==
[2019-07-18 14:57] VITALS: RESP 20; TEMP 97.7
[2019-07-18] MEDS ORDERED: ACET/COD 300 MG/30 MG STARTER PACK 6 TAB BTL PO STA (15:09)
--- NOTE | 2019-07-18 15:11 | ED ---
Male Urogenital HPI - General Chief complaint: Urogenital Stated complaint: Male Source: patient Mode of arrival: ambulatory Limitations: no limitations - History of Present Illness Initial comments: 48-year-old male presenting today for chief complaint of dysuria urgency frequency. Patient states he is a diabetic. He states he feels that his urinary tract infection. Patient denies any flank pain back pain fever chills night sweats. Patient denies any abdominal discomfort. Denies penile discharge, penile lesions or scrotal pain/swelling. Patient denies history of kidney stones. Denies nausea, vomiting. Patient attempted to take over the counter AZO but this did not help. Patient denies any other complaints. States he has not been sexually active in years, no patient concern for STI. - Related Data Home Medications Medication Instructions Recorded Confirmed Atorvastatin [Lipitor] 40 mg PO HS 09/04/16 03/13/19 HYDROcodone/APAP 7.5-325MG [[place] 1 tab PO TID 03/05/17 03/13/19 7.5-325] Omeprazole 20 mg PO DAILY 03/05/17 03/13/19 buPROPion HCL [buPROPion HCL SR] 150 mg PO BID 03/05/17 03/13/19 Gabapentin [Neurontin] 400 mg PO BID 09/24/17 03/13/19 Insulin Glargine,Hum.rec.anlog 50 unit SQ BID 05/18/18 03/13/19 [Basagljanice Guzman U-100] ARIPiprazole [Abilify] 10 mg PO DAILY 03/13/19 03/13/19 Cyclobenzaprine [Flexeril] 5 mg PO TID PRN 03/13/19 03/13/19 Insulin Lispro [Admelog] See Protocol SQ AC-TID 03/13/19 03/13/19 Midodrine HCl [ProAmatine] 10 mg PO TID 03/13/19 03/13/19 Previous Rx's Medication Instructions Recorded Aspirin 81 mg PO DAILY chew 03/16/19 Carvedilol [Coreg*] 12.5 mg PO BID-W/MEALS #60 tab 03/16/19 Clopidogrel [Plavix] 75 mg PO DAILY #21 tab 03/16/19 Meclizine [Antivert] 25 mg PO TID tab 03/16/19 Cephalexin [Keflex] 500 mg PO Q6HR 7 Days #28 cap 07/18/19 Allergies Allergy/AdvReac Type Severity Reaction Status Date / Time lactose AdvReac Nausea & Verified 07/18/19 14:56 Vomiting & Diarrhea Review of Systems ROS Statement: Those systems with pertinent positive or pertinent negative responses have been documented in the HPI. ROS Other: All systems not noted in ROS Statement are negative. Past Medical History Past Medical History: CVA/TIA, Diabetes Mellitus Additional Past Medical History / Comment(s): neuropathy carpel tunnel borderline bipolar History of Any Multi-Drug Resistant Organisms: MRSA Date of last positivie culture/infection: 04/22/16 MDRO Source:: Right Hand Past Surgical History: Orthopedic Surgery Additional Past Surgical History / Comment(s): Colonscopy eye cataract surg Past Anesthesia/Blood Transfusion Reactions: No Reported Reaction Past Psychological History: Anxiety, Bipolar, Depression Smoking Status: Never smoker Past Alcohol Use History: None Reported Past Drug Use History: None Reported - Past Family History Mother Family Medical History: Diabetes Mellitus Additional Family Medical History / Comment(s): Mother is alive at age 61 with history of diabetes. Patient does not have any contact with his father. Brother(s) Additional Family Medical History / Comment(s): Patient has 2 brothers and one has history of diabetes and one has no major medical problems. Patient does not have any sisters. Patient does not have any children. General Exam - General Exam Comments Initial Comments: General: The patient is awake and alert, appears uncomfortable. Eye: Pupils are equal, round and reactive to light, extra-ocular movements are intact. No nystagmus. There is normal conjunctiva bilaterally. No signs of icterus. Cardiovascular: There is a regular rate and rhythm. No murmur, rub or gallop is appreciated. Respiratory: Lungs are clear to auscultation, respirations are non-labored, breath sounds are equal. No wheezes, stridor, rales, or rhonchi. Gastrointestinal: Soft, non-distended, non-tender abdomen without masses or organomegaly noted. There is no rebound or guarding present. Musculoskeletal: Normal ROM, no tenderness. Strength 5/5. Sensation intact. Pulses equal bilaterally 2+. Neurological: A&O x 3. CN II-XII intact grossly, There are no obvious motor or sensory deficits. Coordination appears grossly intact. Speech is normal. Skin: Skin is warm and dry and no rashes or lesions are noted. Psychiatric: Cooperative, appropriate mood & affect, normal judgment. Limitations: no limitations Course Vital Signs 07/18/19 07/18/19 07/18/19 14:54 14:56 15:56 Temperature 97.7 F Pulse Rate 76 Respiratory 20 20 20 Rate Blood Pressure 158/87 O2 Sat by Pulse 99 Oximetry 07/18/19 07/18/19 16:56 17:22 Temperature Pulse Rate 90 Respiratory 20 20 Rate Blood Pressure 112/91 O2 Sat by Pulse 99 Oximetry Medical Decision Making - Medical Decision Making 48-year-old male presenting today for chief complaint of dysuria urgency frequency. Patient is found to have microscopic hematuria as well as white blood cells concerning for infection patient is a diabetic. Patient has no ketones in his urine. Patient denies any fevers flank pain abdominal pain or groin pain no history of kidney stones. Patient appears well and nontoxic with a tree for complicated UTI and given urology follow-up. Discussed ddx of microscopic hematuria including infection, cancer. Patient verbalized understanding of importance of f/u and monitoring for flank pain, fevers, worsening symptoms. Discharged appearing well. - Lab Data Lab Results 07/18/19 Range/Units 15:43 Urine Color Yellow Urine Appearance Cloudy (Clear) Urine pH 6.5 (5.0-8.0) Ur Specific [place] 1.026 (1.001-1.035) Urine Protein 3+ H (Negative) Urine Glucose (UA) 4+ H (Negative) Urine Ketones Negative (Negative) Urine Blood Moderate H (Negative) Urine Nitrite Negative (Negative) Urine Bilirubin Negative (Negative) Urine Urobilinogen <2.0 (<2.0) mg/dL Ur Leukocyte Esterase Negative (Negative) Urine RBC >182 H (0-5) /hpf Urine WBC 16 H (0-5) /hpf Ur Squamous Epith Cells <1 (0-4) /hpf Hyaline Casts 4 H (0-2) /lpf Urine Mucus Rare H (None) /hpf Disposition Clinical Impression: Hematuria, Dysuria, Urgency of urination Disposition: HOME SELF-CARE Condition: Good Instructions (If sedation given, give patient instructions): Hematuria (ED), Dysuria (ED) Additional Instructions: Please use medication as discussed. Please follow-up with family doctor in the next 2 days. Follow-up with urology in the next week for hematuria, immediate return to ER for fevers, flank pain, weakness. Please return to emergency room if the symptoms increase or worsen or for any other concerns. Prescriptions: Cephalexin [Keflex] 500 mg PO Q6HR 7 Days #28 cap Is patient prescribed a controlled substance at d/c from ED?: No Referrals: Justine Guillen MD [Primary Care Provider] - 1-2 days Roberto Tay MD [STAFF PHYSICIAN] - 1-2 days Time of Disposition: 16:39
[2019-07-18 16:34] LABS: Appearance,Urine Cloudy (Clear); Bilirubin,Urine Negative (Negative); Blood,Urine Moderate (Negative); Color,Urine Yellow; Glucose,Urine (UA) 4+ (Negative); Hyaline Casts,Urine 4 /lpf (0-2); Ketones,Urine Negative (Negative); Leukocyte Esterase,Urine Negative (Negative); Mucus,Urine Rare /hpf; Nitrite,Urine Negative (Negative); PH, Urine 6.5 (5.0-8.0); Protein,Urine 3+ (Negative); RBC,Urine >182 /hpf (0-5); Specific Gravity,Urine 1.026 (1.001-1.035); Squamous Epithelial Cell,Urine <1 /hpf (0-4); Urobilinogen,Urine <2.0 mg/dL (<2.0); WBC,Urine 16 /hpf (0-5)
[2019-07-18] MEDS ORDERED: cefTRIAXone 1,000 MG VIAL (IM USE) IM STA (16:38)
[2019-07-18 17:17] VITALS: BP 112/91; PULSE 90
== END 2019-07-18 17:24 | disposition home or self-care (01) ==
LOC: EC 14:50
DX: R30.0 Dysuria (principal); R31.29 Other microscopic hematuria; R82.81 Pyuria; R39.15 Urgency of urination; R35.0 Frequency of micturition; E11.40 Type 2 diabetes mellitus with diabetic neuropathy, unspecified; F31.9 Bipolar disorder, unspecified; F41.9 Anxiety disorder, unspecified; Z91.018 Allergy to other foods; Z79.4 Long term (current) use of insulin; Z79.891 Long term (current) use of opiate analgesic; Z79.899 Other long term (current) drug therapy; Z86.14 Personal history of Methicillin resistant Staphylococcus aureus infection; Z83.3 Family history of diabetes mellitus
CPT/HCPCS: 81001; 87491; 87591; 87086; 99283; 96372; J0696

== ENCOUNTER 2019-07-24 14:42 | Emergency (ER) | payer OTHER ==
[2019-07-24 14:56] VITALS: RESP 18
[2019-07-24] MEDS ORDERED: SODIUM CHLORIDE 0.9% 1,000 ML IV STA ×2 (15:08)
--- NOTE | 2019-07-24 15:12 | ED ---
General Adult HPI - General Chief complaint: Urogenital Stated complaint: weakness/dysuria Time Seen by Provider: 07/24/19 14:59 Source: patient, RN notes reviewed, old records reviewed Mode of arrival: wheelchair Limitations: no limitations - History of Present Illness Initial comments: Patient is a 48-year-old male who presents emergency Department today with complaints of minimal urination. He was treated for urinary tract infection on 329. He states it is painful that he is only able urinate small amount. He states is just also been feeling somewhat dizzy. He reports that he fell twice coming into the emergency department landing on his buttocks. Denies back pain and reports full strength to lower extremity. . Patient states that he's had small bowel movements as well. He denies any back pain or flank pain. Denies any fever. Patient has a past medical history of diabetes, neuropathy, carpal tunnel multiple borderline personality disorder and bipolar. - Related Data Home Medications Medication Instructions Recorded Confirmed Atorvastatin [Lipitor] 40 mg PO HS 09/04/16 07/24/19 HYDROcodone/APAP 7.5-325MG [[place] 1 tab PO TID 03/05/17 07/24/19 7.5-325] Gabapentin [Neurontin] 800 mg PO DAILY 09/24/17 07/24/19 Insulin Glargine,Hum.rec.anlog 50 unit SQ BID 05/18/18 07/24/19 [Basagljanice Fongpen U-100] Cyclobenzaprine [Flexeril] 5 mg PO TID PRN 03/13/19 07/24/19 ARIPiprazole 2.5 mg PO W/SUPPER 07/24/19 07/24/19 Fludrocortisone [Florinef] 0.1 mg PO DAILY 07/24/19 07/24/19 HYDROcodone/APAP 7.5-325MG [[place] 1 tab PO TID PRN 07/24/19 07/24/19 7.5-325] Lisinopril [Zestril] 10 mg PO DAILY 07/24/19 07/24/19 Tamsulosin HCl [Flomax] 0.4 mg PO MOTH 07/24/19 07/24/19 Previous Rx's Medication Instructions Recorded Cephalexin [Keflex] 500 mg PO Q6HR 7 Days #28 cap 07/18/19 Allergies Allergy/AdvReac Type Severity Reaction Status Date / Time lactose AdvReac Nausea & Verified 07/24/19 16:16 Vomiting & Diarrhea Review of Systems ROS Statement: Those systems with pertinent positive or pertinent negative responses have been documented in the HPI. ROS Other: All systems not noted in ROS Statement are negative. Past Medical History Past Medical History: CVA/TIA, Diabetes Mellitus Additional Past Medical History / Comment(s): neuropathy carpel tunnel borderline bipolar History of Any Multi-Drug Resistant Organisms: MRSA Date of last positivie culture/infection: 04/22/16 MDRO Source:: Right Hand Past Surgical History: Orthopedic Surgery Additional Past Surgical History / Comment(s): Colonscopy eye cataract surg Past Anesthesia/Blood Transfusion Reactions: No Reported Reaction Past Psychological History: Anxiety, Bipolar, Depression Smoking Status: Never smoker Past Alcohol Use History: None Reported Past Drug Use History: None Reported - Past Family History Mother Family Medical History: Diabetes Mellitus Additional Family Medical History / Comment(s): Mother is alive at age 61 with history of diabetes. Patient does not have any contact with his father. Brother(s) Additional Family Medical History / Comment(s): Patient has 2 brothers and one has history of diabetes and one has no major medical problems. Patient does not have any sisters. Patient does not have any children. General Exam - General Exam Comments Initial Comments: Well-appearing alert and oriented 48-year-old male. No distress. Limitations: no limitations General appearance: alert, in no apparent distress Head exam: Present: atraumatic, normocephalic, normal inspection Eye exam: Present: normal appearance, PERRL, EOMI. Absent: scleral icterus, conjunctival injection, periorbital swelling ENT exam: Present: normal exam, mucous membranes moist Neck exam: Present: normal inspection. Absent: tenderness, meningismus, lymphadenopathy Respiratory exam: Present: normal lung sounds bilaterally. Absent: respiratory distress, wheezes, rales, rhonchi, stridor Cardiovascular Exam: Present: regular rate, normal rhythm, normal heart sounds. Absent: systolic murmur, diastolic murmur, rubs, gallop, clicks GI/Abdominal exam: Present: soft, normal bowel sounds. Absent: distended, tenderness, guarding, rebound, rigid Extremities exam: Present: normal inspection, full ROM, normal capillary refill. Absent: tenderness, pedal edema, joint swelling, calf tenderness Back exam: Present: normal inspection Neurological exam: Present: alert, oriented X3, CN II-XII intact Psychiatric exam: Present: normal affect Course Vital Signs 07/24/19 07/24/19 07/24/19 14:49 15:44 16:49 Temperature 97.5 F L Pulse Rate 65 89 82 Respiratory 18 18 18 Rate Blood Pressure 96/65 117/76 O2 Sat by Pulse 97 98 97 Oximetry Medical Decision Making - Medical Decision Making 48-year-old male presents today with painful urination, only able to urinate a small amount. He has no distended bladder. Denies any back pain. His vital signs stable. He also reports that he doing somewhat dizzy and fell on his buttocks twice in the parking lot. He has no signs of abrasions previous full strength in his lower extremities. Patient is given IV fluids labwork obtained. Patient's previous urine culture was reviewed and just grew normal skin lisa. He denies any concern for STDs. Urinalysis today shows overall 182 red blood cells. We will send this off her urine culture again. He has been taking Kefl ex but missed yesterday's doses into these doses because he felt like it was working. Patient had a CT abdomen and pelvis completed without contrast. There is evidence of bladder wall thickening consistent with cystitis. Patient is given a dose of IV Rocephin and instructed the importance of finishing Keflex. I discussed the case with Dr. Fletcher. - Lab Data Result diagrams: 07/24/19 15:30 07/24/19 15:30 Lab Results 07/24/19 07/24/19 07/24/19 Range/Units 15:30 15:30 15:30 WBC 10.1 (3.8-10.6) k/uL RBC 4.78 (4.30-5.90) m/uL Hgb 13.3 (13.0-17.5) gm/dL Hct 40.1 (39.0-53.0) % MCV 83.8 (80.0-100.0) fL MCH 27.8 (25.0-35.0) pg MCHC 33.2 (31.0-37.0) g/dL RDW 13.9 (11.5-15.5) % Plt Count 326 (150-450) k/uL Neutrophils % 71 % Lymphocytes % 18 % Monocytes % 5 % Eosinophils % 3 % Basophils % 1 % Neutrophils # 7.2 (1.3-7.7) k/uL Lymphocytes # 1.9 (1.0-4.8) k/uL Monocytes # 0.5 (0-1.0) k/uL Eosinophils # 0.3 (0-0.7) k/uL Basophils # 0.1 (0-0.2) k/uL PT 10.4 (9.0-12.0) sec INR 1.0 (<1.2) APTT 22.6 (22.0-30.0) sec Sodium 136 L (137-145) mmol/L Potassium 5.1 (3.5-5.1) mmol/L Chloride 100 (98-107) mmol/L Carbon Dioxide 26 (22-30) mmol/L Anion Gap 10 mmol/L BUN 35 H (9-20) mg/dL Creatinine 1.88 H (0.66-1.25) mg/dL Est GFR (CKD-EPI)AfAm 48 (>60 ml/min/1.73 sqM) Est GFR (CKD-EPI)NonAf 42 (>60 ml/min/1.73 sqM) Glucose 344 H (74-99) mg/dL Plasma Lactic Acid Andrea (0.7-2.0) mmol/L Calcium 9.2 (8.4-10.2) mg/dL Total Bilirubin 0.6 (0.2-1.3) mg/dL AST 16 L (17-59) U/L ALT 17 (4-49) U/L Alkaline Phosphatase 103 (38-126) U/L Total Protein 6.5 (6.3-8.2) g/dL Albumin 3.9 (3.5-5.0) g/dL Amylase <30 L (30-110) U/L Lipase 66 (23-300) U/L Urine Color Urine Appearance (Clear) Urine pH (5.0-8.0) Ur Specific [place] (1.001-1.035) Urine Protein (Negative) Urine Glucose (UA) (Negative) Urine Ketones (Negative) Urine Blood (Negative) Urine Nitrite (Negative) Urine Bilirubin (Negative) Urine Urobilinogen (<2.0) mg/dL Ur Leukocyte Esterase (Negative) Urine RBC (0-5) /hpf Urine WBC (0-5) /hpf Ur Squamous Epith Cells (0-4) /hpf Urine Bacteria (None) /hpf Urine Mucus (None) /hpf 07/24/19 07/24/19 Range/Units 15:30 15:50 WBC (3.8-10.6) k/uL RBC (4.30-5.90) m/uL Hgb (13.0-17.5) gm/dL Hct (39.0-53.0) % MCV (80.0-100.0) fL MCH (25.0-35.0) pg MCHC (31.0-37.0) g/dL RDW (11.5-15.5) % Plt Count (150-450) k/uL Neutrophils % % Lymphocytes % % Monocytes % % Eosinophils % % Basophils % % Neutrophils # (1.3-7.7) k/uL Lymphocytes # (1.0-4.8) k/uL Monocytes # (0-1.0) k/uL Eosinophils # (0-0.7) k/uL Basophils # (0-0.2) k/uL PT (9.0-12.0) sec INR (<1.2) APTT (22.0-30.0) sec Sodium (137-145) mmol/L Potassium (3.5-5.1) mmol/L Chloride (98-107) mmol/L Carbon Dioxide (22-30) mmol/L Anion Gap mmol/L BUN (9-20) mg/dL Creatinine (0.66-1.25) mg/dL Est GFR (CKD-EPI)AfAm (>60 ml/min/1.73 sqM) Est GFR (CKD-EPI)NonAf (>60 ml/min/1.73 sqM) Glucose (74-99) mg/dL Plasma Lactic Acid Andrea 1.9 (0.7-2.0) mmol/L Calcium (8.4-10.2) mg/dL Total Bilirubin (0.2-1.3) mg/dL AST (17-59) U/L ALT (4-49) U/L Alkaline Phosphatase (38-126) U/L Total Protein (6.3-8.2) g/dL Albumin (3.5-5.0) g/dL Amylase (30-110) U/L Lipase (23-300) U/L Urine Color Yellow Urine Appearance Clear (Clear) Urine pH 6.5 (5.0-8.0) Ur Specific [place] 1.029 (1.001-1.035) Urine Protein 3+ H (Negative) Urine Glucose (UA) 4+ H (Negative) Urine Ketones 1+ H (Negative) Urine Blood Moderate H (Negative) Urine Nitrite Negative (Negative) Urine Bilirubin Negative (Negative) Urine Urobilinogen <2.0 (<2.0) mg/dL Ur Leukocyte Esterase Negative (Negative) Urine RBC >182 H (0-5) /hpf Urine WBC 4 (0-5) /hpf Ur Squamous Epith Cells <1 (0-4) /hpf Urine Bacteria Rare H (None) /hpf Urine Mucus Rare H (None) /hpf 07/24/19 15:45 EKG performed at 1542 showed normal sinus rhythm possible left atrial enlargement. Left ventricular hypertrophy. Abnormal EKG. Disposition Clinical Impression: Cystitis Disposition: HOME SELF-CARE Condition: Good Instructions (If sedation given, give patient instructions): Urinary Tract Infection in Men (ED) Additional Instructions: Patient advised to drink plenty of water and have frequent meals. Patient advised to follow-up with your primary care doctor next week. Continue to take the antibiotic of Keflex. Return to emergency department if any alarming signs or symptoms occur. Is patient prescribed a controlled substance at d/c from ED?: No Referrals: Justine Guillen MD [Primary Care Provider] - 1-2 days Khang De Jesus MD [STAFF PHYSICIAN] - 1-2 days Time of Disposition: 17:54
[2019-07-24 15:53] LABS: Basophils # (A) 0.1 k/uL (0-0.2); Basophils % (A) 1 %; Eosinophils # (A) 0.3 k/uL (0-0.7); Eosinophils % (A) 3 %; HCT 40.1 % (39.0-53.0); HGB 13.3 gm/dL (13.0-17.5); Lymphocytes # (A) 1.9 k/uL (1.0-4.8); Lymphocytes % (A) 18 %; MCH 27.8 pg (25.0-35.0); MCHC 33.2 g/dL (31.0-37.0); MCV 83.8 fL (80.0-100.0); Mean Platelet Volume 6.9; Monocytes # (A) 0.5 k/uL (0-1.0); Monocytes % (A) 5 %; Neutrophils # (A) 7.2 k/uL (1.3-7.7); Neutrophils % (A) 71 %; Platelet Count 326 k/uL (150-450); RBC 4.78 m/uL (4.30-5.90); RDW 13.9 % (11.5-15.5); WBC 10.1 k/uL (3.8-10.6)
[2019-07-24 15:57] LABS: Appearance,Urine Clear (Clear); Bacteria,Urine Rare /hpf; Bilirubin,Urine Negative (Negative); Blood,Urine Moderate (Negative); Color,Urine Yellow; Glucose,Urine (UA) 4+ (Negative); Ketones,Urine 1+ (Negative); Leukocyte Esterase,Urine Negative (Negative); Mucus,Urine Rare /hpf; Nitrite,Urine Negative (Negative); PH, Urine 6.5 (5.0-8.0); Protein,Urine 3+ (Negative); RBC,Urine >182 /hpf (0-5); Specific Gravity,Urine 1.029 (1.001-1.035); Squamous Epithelial Cell,Urine <1 /hpf (0-4); Urobilinogen,Urine <2.0 mg/dL (<2.0); WBC,Urine 4 /hpf (0-5)
[2019-07-24 16:02] LABS: Partial Thromboplastin Time 22.6 sec (22.0-30.0); Prothrombin Time 10.4 sec (9.0-12.0)
[2019-07-24 16:09] LABS: ALT 17 U/L (4-49); AST 16 U/L (17-59); African American GFR (CKD) 48 (>60 ml/min/1.73 sqM); Albumin 3.9 g/dL (3.5-5.0); Alkaline Phosphatase 103 U/L (38-126); Amylase <30 U/L (30-110); Anion Gap 10 mmol/L; Blood Urea Nitrogen 35 mg/dL (9-20); Calcium 9.2 mg/dL (8.4-10.2); Carbon Dioxide 26 mmol/L (22-30); Chloride 100 mmol/L (98-107); Glucose 344 mg/dL (74-99); Non-African American GFR(CKD) 42 (>60 ml/min/1.73 sqM); Potassium 5.1 mmol/L (3.5-5.1); Sodium 136 mmol/L (137-145); Total Bilirubin 0.6 mg/dL (0.2-1.3); Total Protein 6.5 g/dL (6.3-8.2)
--- NOTE | 2019-07-24 17:01 | CT ---
EXAMINATION TYPE: CT abdomen pelvis wo con DATE OF EXAM: 07/24/2019 COMPARISON: HISTORY: Hematuria and painful urination x3 days. CT DLP: 967.8 mGycm Automated exposure control for dose reduction was used. Multiple axial sections were obtained from the diaphragm to the floor the pelvis with no contrast. There is some mild atelectasis at both lung bases. There is no pleural effusion. Heart size is normal . There is no pericardial effusion. Gallbladder appears normal. Liver spleen pancreas stomach appear intact. Bile ducts are not dilated. There is small hiatal hernia. There is no adrenal mass. There is mild fat stranding around both kidneys. There is no renal atrophy. There is no hydronephrosis. There is no retroperitoneal adenopathy. Ureters are not dilated. There is significant wall thickening of the entire urinary bladder. There is fat stranding around the urinary bladder. There is no inguinal hernia. There is no free fluid in the pelvis. There is no evidence of a bowel obstruction. There is no mesent angela edema. There is no ascites or free air. There is no sign of thickened appendix. Lumbar vertebra have normal alignment. Posterior elements are intact. Bony pelvis is intact. IMPRESSION: Severe wall thickening of the urinary bladder with surrounding inflammatory changes consistent with s evere cystitis. This is a change compared to old exam. Mild stranding around both kidneys unchanged compared to old exam and consistent with previous episod e of inflammation or obstruction..
[2019-07-24] MEDS ORDERED: cefTRIAXone IN SWFI 1,000 MG/10 ML SYRINGE IVP STA (17:35)
[2019-07-24 17:53] VITALS: BP 126/78; PULSE 89; TEMP 98.3
== END 2019-07-24 18:00 | disposition home or self-care (01) ==
LOC: EC 14:42
DX: N30.91 Cystitis, unspecified with hematuria (principal); R42 Dizziness and giddiness; E11.42 Type 2 diabetes mellitus with diabetic polyneuropathy; F31.9 Bipolar disorder, unspecified; F41.9 Anxiety disorder, unspecified; F60.3 Borderline personality disorder; Z91.018 Allergy to other foods; Z79.4 Long term (current) use of insulin; Z79.52 Long term (current) use of systemic steroids; Z79.891 Long term (current) use of opiate analgesic; Z79.899 Other long term (current) drug therapy; Z86.14 Personal history of Methicillin resistant Staphylococcus aureus infection; W19.XXXA Unspecified fall, initial encounter
CPT/HCPCS: 36415; 93005; 80053; 82150; 83605; 83690; 85025; 85610; 85730; 81001; 87040; 74176; 99285; 96374; 96361 ×2; J0696

== ENCOUNTER 2019-12-16 12:33 | Emergency (ER) | payer OTHER ==
[2019-12-16] MEDS ORDERED: SODIUM CHLORIDE 0.9% 1,000 ML IV ONE (14:27)
--- NOTE | 2019-12-16 14:27 | ED ---
Weakness HPI - General Source: patient, RN notes reviewed, old records reviewed Mode of arrival: wheelchair Limitations: no limitations <Noemi Mtz - Last Filed: 12/16/19 15:25> <Conrado Chou - Last Filed: 12/16/19 17:11> - General Chief complaint: Weakness Stated complaint: Vertigo, Falls, sleeping a lot Time Seen by Provider: 12/16/19 13:17 - History of Present Illness Initial comments: Patient is a 49-year-old male with history of CVA and TIA and diabetes. He presents emergency department today with his mother's is caregiver and guardian. Patient has reportedly had frequent falls, and suffers from vertigo chronically. Patient reports he has chronic dizziness and despite falling up with specialist this has not helped. Patient reportedly became dizzy while he was in the shower and may have hit his head. Patient's mother reports that occurred yesterday. Patient's mother also states that he has been urinating frequently. She found that he urinated all over the bathroom on the floor and e eileen into the kitchen. Patienthas had chronic fatigue and sleeping alot. (Noemi Mtz) - Related Data Home Medications Medication Instructions Recorded Confirmed Atorvastatin [Lipitor] 40 mg PO HS 09/04/16 07/24/19 HYDROcodone/APAP 7.5-325MG [[place] 1 tab PO TID 03/05/17 07/24/19 7.5-325] Gabapentin [Neurontin] 800 mg PO DAILY 09/24/17 07/24/19 Insulin Glargine,Hum.rec.anlog 50 unit SQ BID 05/18/18 07/24/19 [Basaglar Kwikpen U-100] Cyclobenzaprine [Flexeril] 5 mg PO TID PRN 03/13/19 07/24/19 ARIPiprazole 2.5 mg PO W/SUPPER 07/24/19 07/24/19 Fludrocortisone [Florinef] 0.1 mg PO DAILY 07/24/19 07/24/19 HYDROcodone/APAP 7.5-325MG [[place] 1 tab PO TID PRN 07/24/19 07/24/19 7.5-325] Tamsulosin HCl [Flomax] 0.4 mg PO MOTH 07/24/19 07/24/19 lisinopriL [Zestril] 10 mg PO DAILY 07/24/19 07/24/19 Previous Rx's Medication Instructions Recorded Cephalexin [Keflex] 500 mg PO Q6HR 7 Days #28 cap 07/18/19 Allergies Allergy/AdvReac Type Severity Reaction Status Date / Time lactose AdvReac Nausea & Verified 12/16/19 13:08 Vomiting & Diarrhea Review of Systems ROS Other: All systems not noted in ROS Statement are negative. <Noemi Mtz - Last Filed: 12/16/19 15:25> ROS Other: All systems not noted in ROS Statement are negative. <Conrado Chou - Last Filed: 12/16/19 17:11> ROS Statement: Those systems with pertinent positive or pertinent negative responses have been documented in the HPI. Past Medical History Past Medical History: CVA/TIA, Diabetes Mellitus Additional Past Medical History / Comment(s): neuropathy carpel tunnel borderline bipolar History of Any Multi-Drug Resistant Organisms: MRSA Date of last positivie culture/infection: 04/22/16 MDRO Source:: Right Hand Past Surgical History: Orthopedic Surgery Additional Past Surgical History / Comment(s): Colonscopy eye cataract surg Past Anesthesia/Blood Transfusion Reactions: No Reported Reaction Past Psychological History: Anxiety, Bipolar, Depression Smoking Status: Never smoker Past Alcohol Use History: None Reported Past Drug Use History: None Reported - Past Family History Mother Family Medical History: Diabetes Mellitus Additional Family Medical History / Comment(s): Mother is alive at age 61 with history of diabetes. Patient does not have any contact with his father. Brother(s) Additional Family Medical History / Comment(s): Patient has 2 brothers and one has history of diabetes and one has no major medical problems. Patient does not have any sisters. Patient does not have any children. <Noemi Mtz - Last Filed: 12/16/19 15:25> General Exam Limitations: no limitations General appearance: alert, in no apparent distress Head exam: Present: atraumatic, normocephalic, normal inspection Eye exam: Present: normal appearance, PERRL, EOMI. Absent: scleral icterus, conjunctival injection, periorbital swelling ENT exam: Present: normal exam, mucous membranes moist, other (nystagmus on R lateral gaze. ) Neck exam: Present: normal inspection. Absent: tenderness, meningismus, lymphadenopathy Respiratory exam: Present: normal lung sounds bilaterally. Absent: respiratory distress, wheezes, rales, rhonchi, stridor Cardiovascular Exam: Present: regular rate, normal rhythm, normal heart sounds. Absent: systolic murmur, diastolic murmur, rubs, gallop, clicks GI/Abdominal exam: Present: soft, normal bowel sounds. Absent: distended, tenderness, guarding, rebound, rigid Extremities exam: Present: normal inspection, full ROM, normal capillary refill. Absent: tenderness, pedal edema, joint swelling, calf tenderness Back exam: Present: normal inspection Neurological exam: Present: alert, oriented X3, CN II-XII intact Psychiatric exam: Present: normal affect, normal mood Skin exam: Present: warm, dry, intact, normal color. Absent: rash <Noemi Mtz - Last Filed: 12/16/19 15:25> - General Exam Comments Initial Comments: 49-year-old male. Alert and oriented. No distress. (Noemi Mtz) Course Vital Signs 12/16/19 12/16/19 13:06 16:38 Temperature 98.7 F Pulse Rate 85 78 Respiratory 16 18 Rate Blood Pressure 132/90 164/108 O2 Sat by Pulse 99 99 Oximetry EKG Findings - EKG Comments: EKG Findings:: EKG shows normal sinus rhythm multiple discard to have for LVH. Inferior infarct determined. Abnormal EKG. Ventricular rate 82 bpm. Was 164 ms. QRS duration is 70 ms. QT QTc is 350/408 ms. <Noemi Mtz - Last Filed: 12/16/19 15:25> Medical Decision Making - Lab Data Result diagrams: 12/16/19 14:02 <Noemi Mtz - Last Filed: 12/16/19 15:25> - Lab Data Result diagrams: 12/16/19 14:02 12/16/19 14:02 <Conrado Chou - Last Filed: 12/16/19 17:11> - Medical Decision Making Patient care was signed out to me by Noemi Mtz. Briefly, patient is a 49-year-old male he's been struggling with months of vertigo. Last night patient had episode where he urinated all over the house and his bed. Patient does not recall this episode. Mother is at bedside able to provide history of present illness. Patient has multiple comorbidities including stroke, diabetes, chronic vertigo and neuropathy. She reports that patient's medications have not been changed recently. Does not do any drugs. Patient states he feels fine now. He does report vertiginous symptoms however he's had these symptoms for months. He has been evaluated by specialists with no apparent reason for his symptoms. Patient's medications are reviewed. Mother reports that patient has been more listless than usual. Mother gives examples that patient stares off into space and is hypersomnolent. He does appear to be okay at the moment according to mother. Physical examination is nonrevealing. Patient has no neuro deficits. He is not aphasic and not confused. He is awake alert and oriented. Plan sign out was to follow up with urine studies. Laboratory evaluation was obtained and reviewed by myself. No leukocytosis. Hemoglobin stable at 11.7. Coag panel is unremarkable. Metabolic panel shows elevated renal markers however this is patient's baseline glucose is 333. Elevated liver enzymes with AST of 81 ALT of 57 and alk phos of 140. Most recently patient was evaluated by neurology and 2019. At that time his found to have a lacunar infarct of the right posterior internal capsule. He also has uncontrolled diabetes with A1c of 13.6. Patient has no strokelike symptoms at bedside. He reports improvement of his vertigo at rest. Urinalysis is unremarkable. Discussed patient case with Dr. Guillen who is agreeable with patient being discharged follow-up with outpatient clinic. Mother and patient are agreeable. Patient will be discharged. (Conrado Chou) - Lab Data Lab Results 12/16/19 12/16/19 12/16/19 Range/Units 14:02 14:02 14:02 WBC 6.8 (3.8-10.6) k/uL RBC 4.24 L (4.30-5.90) m/uL Hgb 11.7 L (13.0-17.5) gm/dL Hct 35.2 L (39.0-53.0) % MCV 83.1 (80.0-100.0) fL MCH 27.6 (25.0-35.0) pg MCHC 33.2 (31.0-37.0) g/dL RDW 13.5 (11.5-15.5) % Plt Count 295 (150-450) k/uL Neutrophils % 71 % Lymphocytes % 19 % Monocytes % 6 % Eosinophils % 2 % Basophils % 1 % Neutrophils # 4.9 (1.3-7.7) k/uL Lymphocytes # 1.3 (1.0-4.8) k/uL Monocytes # 0.4 (0-1.0) k/uL Eosinophils # 0.1 (0-0.7) k/uL Basophils # 0.0 (0-0.2) k/uL PT 10.0 (9.0-12.0) sec INR 1.0 (<1.2) APTT 23.3 (22.0-30.0) sec Sodium (137-145) mmol/L Potassium (3.5-5.1) mmol/L Chloride (98-107) mmol/L Carbon Dioxide (22-30) mmol/L Anion Gap mmol/L BUN (9-20) mg/dL Creatinine (0.66-1.25) mg/dL Est GFR (CKD-EPI)AfAm (>60 ml/min/1.73 sqM) Est GFR (CKD-EPI)NonAf (>60 ml/min/1.73 sqM) Glucose (74-99) mg/dL POC Glucose (mg/dL) (75-99) mg/dL POC Glu Equipment Or Machinery Cleaner ID Plasma Lactic Acid Eileen (0.7-2.0) mmol/L Calcium (8.4-10.2) mg/dL Total Bilirubin (0.2-1.3) mg/dL AST (17-59) U/L ALT (4-49) U/L Alkaline Phosphatase (38-126) U/L Ammonia (<30) umol/L Troponin I (0.000-0.034) ng/mL Total Protein (6.3-8.2) g/dL Albumin (3.5-5.0) g/dL Urine Color Yellow Urine Appearance Clear (Clear) Urine pH 5.5 (5.0-8.0) Ur Specific [place] 1.027 (1.001-1.035) Urine Protein 1+ H (Negative) Urine Glucose (UA) 4+ H (Negative) Urine Ketones Negative (Negative) Urine Blood Negative (Negative) Urine Nitrite Negative (Negative) Urine Bilirubin Negative (Negative) Urine Urobilinogen <2.0 (<2.0) mg/dL Ur Leukocyte Esterase Negative (Negative) Urine RBC <1 (0-5) /hpf Urine WBC <1 (0-5) /hpf Hyaline Casts 8 H (0-2) /lpf Urine Mucus Rare H (None) /hpf Serum Alcohol mg/dL 12/16/19 12/16/19 12/16/19 Range/Units 14:02 14:02 14:02 WBC (3.8-10.6) k/uL RBC (4.30-5.90) m/uL Hgb (13.0-17.5) gm/dL Hct (39.0-53.0) % MCV (80.0-100.0) fL MCH (25.0-35.0) pg MCHC (31.0-37.0) g/dL RDW (11.5-15.5) % Plt Count (150-450) k/uL Neutrophils % % Lymphocytes % % Monocytes % % Eosinophils % % Basophils % % Neutrophils # (1.3-7.7) k/uL Lymphocytes # (1.0-4.8) k/uL Monocytes # (0-1.0) k/uL Eosinophils # (0-0.7) k/uL Basophils # (0-0.2) k/uL PT (9.0-12.0) sec INR (<1.2) APTT (22.0-30.0) sec Sodium 136 L (137-145) mmol/L Potassium 4.6 (3.5-5.1) mmol/L Chloride 102 (98-107) mmol/L Carbon Dioxide 25 (22-30) mmol/L Anion Gap 9 mmol/L BUN 39 H (9-20) mg/dL Creatinine 1.89 H (0.66-1.25) mg/dL Est GFR (CKD-EPI)AfAm 47 (>60 ml/min/1.73 sqM) Est GFR (CKD-EPI)NonAf 41 (>60 ml/min/1.73 sqM) Glucose 333 H (74-99) mg/dL POC Glucose (mg/dL) (75-99) mg/dL POC Glu Equipment Or Machinery Cleaner ID Plasma Lactic Acid Eileen 1.2 (0.7-2.0) mmol/L Calcium 9.3 (8.4-10.2) mg/dL Total Bilirubin 0.5 (0.2-1.3) mg/dL AST 81 H (17-59) U/L ALT 57 H (4-49) U/L Alkaline Phosphatase 141 H (38-126) U/L Ammonia (<30) umol/L Troponin I <0.012 (0.000-0.034) ng/mL Total Protein 6.5 (6.3-8.2) g/dL Albumin 4.1 (3.5-5.0) g/dL Urine Color Urine Appearance (Clear) Urine pH (5.0-8.0) Ur Specific [place] (1.001-1.035) Urine Protein (Negative) Urine Glucose (UA) (Negative) Urine Ketones (Negative) Urine Blood (Negative) Urine Nitrite (Negative) Urine Bilirubin (Negative) Urine Urobilinogen (<2.0) mg/dL Ur Leukocyte Esterase (Negative) Urine RBC (0-5) /hpf Urine WBC (0-5) /hpf Hyaline Casts (0-2) /lpf Urine Mucus (None) /hpf Serum Alcohol mg/dL 12/16/19 12/16/19 12/16/19 Range/Units 16:02 16:02 16:33 WBC (3.8-10.6) k/uL RBC (4.30-5.90) m/uL Hgb (13.0-17.5) gm/dL Hct (39.0-53.0) % MCV (80.0-100.0) fL MCH (25.0-35.0) pg MCHC (31.0-37.0) g/dL RDW (11.5-15.5) % Plt Count (150-450) k/uL Neutrophils % % Lymphocytes % % Monocytes % % Eosinophils % % Basophils % % Neutrophils # (1.3-7.7) k/uL Lymphocytes # (1.0-4.8) k/uL Monocytes # (0-1.0) k/uL Eosinophils # (0-0.7) k/uL Basophils # (0-0.2) k/uL PT (9.0-12.0) sec INR (<1.2) APTT (22.0-30.0) sec Sodium (137-145) mmol/L Potassium (3.5-5.1) mmol/L Chloride (98-107) mmol/L Carbon Dioxide (22-30) mmol/L Anion Gap mmol/L BUN (9-20) mg/dL Creatinine (0.66-1.25) mg/dL Est GFR (CKD-EPI)AfAm (>60 ml/min/1.73 sqM) Est GFR (CKD-EPI)NonAf (>60 ml/min/1.73 sqM) Glucose (74-99) mg/dL POC Glucose (mg/dL) 289 H (75-99) mg/dL POC Glu Equipment Or Machinery Cleaner ID [place] Valent[place] Plasma Lactic Acid Eileen (0.7-2.0) mmol/L Calcium (8.4-10.2) mg/dL Total Bilirubin (0.2-1.3) mg/dL AST (17-59) U/L ALT (4-49) U/L Alkaline Phosphatase (38-126) U/L Ammonia <9 (<30) umol/L Troponin I (0.000-0.034) ng/mL Total Protein (6.3-8.2) g/dL Albumin (3.5-5.0) g/dL Urine Color Urine Appearance (Clear) Urine pH (5.0-8.0) Ur Specific [place] (1.001-1.035) Urine Protein (Negative) Urine Glucose (UA) (Negative) Urine Ketones (Negative) Urine Blood (Negative) Urine Nitrite (Negative) Urine Bilirubin (Negative) Urine Urobilinogen (<2.0) mg/dL Ur Leukocyte Esterase (Negative) Urine RBC (0-5) /hpf Urine WBC (0-5) /hpf Hyaline Casts (0-2) /lpf Urine Mucus (None) /hpf Serum Alcohol <10 mg/dL Disposition <Noemi Mtz - Last Filed: 12/16/19 15:25> Is patient prescribed a controlled substance at d/c from ED?: No Time of Disposition: 17:11 <Conrado Chou - Last Filed: 12/16/19 17:11> Clinical Impression: Urinary leakage Disposition: HOME SELF-CARE Condition: Good Instructions (If sedation given, give patient instructions): Urinary Incontinence (ED) Referrals: Justine Guillen MD [Primary Care Provider] - 1-2 days
[2019-12-16 14:49] LABS: Partial Thromboplastin Time 23.3 sec (22.0-30.0)
[2019-12-16 14:50] LABS: Albumin 4.1 g/dL (3.5-5.0); Calcium 9.3 mg/dL (8.4-10.2); Potassium 4.6 mmol/L (3.5-5.1); Total Bilirubin 0.5 mg/dL (0.2-1.3); Total Protein 6.5 g/dL (6.3-8.2)
--- NOTE | 2019-12-16 15:02 | CT ---
EXAMINATION TYPE: CT brain wo con DATE OF EXAM: 12/16/2019 COMPARISON: CT brain May 08, 2019. MRI brain March 15, 2019. HISTORY: Weakness, fall, head injury. CT DLP: 1086.4 mGycm. Automated Exposure Control for Dose Reduction was Utilized. TECHNIQUE: CT scan of the head is performed without contrast. FINDINGS: There is no acute intracranial hemorrhage, mass effect, or midline shift identified. The ventricles and sulci are within normal limits in size. Small mucous retention cyst or polyp posteri or inferior left maxillary sinus partially imaged. The globes are intact and the visualized sinuses o therwise are clear. Small acute left parietal scalp hematoma axial image 36. The calvarium is intact. IMPRESSION: New small acute left parietal scalp hematoma. No acute intracranial hemorrhage or midline shift is seen.
--- NOTE | 2019-12-16 15:13 | XR ---
EXAMINATION TYPE: XR chest 2V DATE OF EXAM: 12/16/2019 COMPARISON: 05/08/2019 HISTORY: 49-year-old male with weakness TECHNIQUE: AP and lateral views FINDINGS: Heart size is accentuated due to low lung volumes. Likely upper limits of normal in size. Some strand y atelectasis at the right base. Otherwise, no consolidation or pleural effusion seen. IMPRESSION: Hypoventilatory changes. Some strandy right basilar atelectasis. Otherwise, no definite acute process .
[2019-12-16] MEDS ORDERED: INSULIN REGULAR 100 UNIT/ML VIAL IV ONE (15:25)
[2019-12-16 15:30] LABS: Basophils % (A) 1 %; Eosinophils # (A) 0.1 k/uL (0-0.7); Eosinophils % (A) 2 %; HCT 35.2 % (39.0-53.0); HGB 11.7 gm/dL (13.0-17.5); Lymphocytes # (A) 1.3 k/uL (1.0-4.8); Lymphocytes % (A) 19 %; MCH 27.6 pg (25.0-35.0); MCHC 33.2 g/dL (31.0-37.0); MCV 83.1 fL (80.0-100.0); Mean Platelet Volume 7.2; Monocytes # (A) 0.4 k/uL (0-1.0); Monocytes % (A) 6 %; Neutrophils # (A) 4.9 k/uL (1.3-7.7); Neutrophils % (A) 71 %; Platelet Count 295 k/uL (150-450); RBC 4.24 m/uL (4.30-5.90); RDW 13.5 % (11.5-15.5); WBC 6.8 k/uL (3.8-10.6)
[2019-12-16] MEDS ORDERED: SODIUM CHLORIDE 0.9% 1,000 ML IV SCH (15:30)
[2019-12-16 15:57] LABS: Appearance,Urine Clear (Clear); Bilirubin,Urine Negative (Negative); Blood,Urine Negative (Negative); Color,Urine Yellow; Glucose,Urine (UA) 4+ (Negative); Hyaline Casts,Urine 8 /lpf (0-2); Ketones,Urine Negative (Negative); Leukocyte Esterase,Urine Negative (Negative); Mucus,Urine Rare /hpf; Nitrite,Urine Negative (Negative); PH, Urine 5.5 (5.0-8.0); Protein,Urine 1+ (Negative); RBC,Urine <1 /hpf (0-5); Specific Gravity,Urine 1.027 (1.001-1.035); Urobilinogen,Urine <2.0 mg/dL (<2.0); WBC,Urine <1 /hpf (0-5)
[2019-12-16 16:38] LABS: Glucose,Whole Blood 289 mg/dL (75-99)
[2019-12-16 16:39] VITALS: RESP 18
[2019-12-16 17:17] VITALS: BP 155/105
[2019-12-16 17:28] VITALS: PULSE 81; TEMP 98.2
== END 2019-12-16 17:33 | disposition home or self-care (01) ==
LOC: EC 12:33
DX: R32 Unspecified urinary incontinence (principal); R42 Dizziness and giddiness; E11.65 Type 2 diabetes mellitus with hyperglycemia; F31.9 Bipolar disorder, unspecified; F41.9 Anxiety disorder, unspecified; E11.40 Type 2 diabetes mellitus with diabetic neuropathy, unspecified; Z79.4 Long term (current) use of insulin; Z79.899 Other long term (current) drug therapy; Z86.14 Personal history of Methicillin resistant Staphylococcus aureus infection; Z86.73 Personal history of transient ischemic attack (TIA), and cerebral infarction without residual deficits; Z91.81 History of falling; Z98.49 Cataract extraction status, unspecified eye
CPT/HCPCS: 93005; 80053; 82140; 83605; 84484; 85025; 85610; 85730; 71046; 70450; 99285; 96360; 96361 ×2; G0480; 80320

== ENCOUNTER 2020-03-27 12:27 | Inpatient (IN) | payer OTHER ==
[2020-03-27] MEDS ORDERED: ACETAMINOPHEN TAB 325 MG TAB PO STA (13:43)
[2020-03-27 13:59] LABS: Basophils # (A) 0.1 k/uL (0-0.2); Basophils % (A) 1 %; Eosinophils % (A) 0 %; HCT 38.8 % (39.0-53.0); HGB 13.1 gm/dL (13.0-17.5); Lymphocytes # (A) 1.3 k/uL (1.0-4.8); Lymphocytes % (A) 21 %; MCH 27.1 pg (25.0-35.0); MCHC 33.9 g/dL (31.0-37.0); MCV 80.1 fL (80.0-100.0); Mean Platelet Volume 6.8; Monocytes # (A) 0.3 k/uL (0-1.0); Monocytes % (A) 5 %; Neutrophils # (A) 4.3 k/uL (1.3-7.7); Neutrophils % (A) 72 %; Platelet Count 179 k/uL (150-450); RBC 4.84 m/uL (4.30-5.90); RDW 13.6 % (11.5-15.5)
[2020-03-27 14:13] LABS: C Reactive Protein 29.7 mg/L (<10.0); Calcium 8.8 mg/dL (8.4-10.2); Potassium 5.2 mmol/L (3.5-5.1); Total Bilirubin 0.4 mg/dL (0.2-1.3)
--- NOTE | 2020-03-27 14:16 | XR ---
EXAMINATION TYPE: XR chest 2V DATE OF EXAM: 03/27/2020 COMPARISON: Chest x-ray December 16, 2019 HISTORY: Suspected pelvic pneumonia. Nausea vomiting and weakness. TECHNIQUE: Frontal and lateral views of the chest are obtained. FINDINGS: There is lung volumes and mild chronic parenchymal changes in the bases redemonstrated wit hout suspicious new focal air space opacity, pleural effusion, or pneumothorax clearly seen. The car diac silhouette size is upper limits of normal. The osseous structures are intact. IMPRESSION: Low lung volumes and chronic changes without new acute infiltrate clearly identified.
--- NOTE | 2020-03-27 14:25 | ED ---
General Adult HPI - General Chief complaint: Nausea/Vomiting/Diarrhea Stated complaint: COVID symptoms Time Seen by Provider: 03/27/20 12:30 Source: patient Mode of arrival: wheelchair Limitations: no limitations - History of Present Illness Initial comments: Patient is a 49-year-old male past history of CVA and diabetes who presents emergency Department with reported nausea, vomiting and diarrhea. He reports that his symptoms have been present for a few days. He has been unable to tolerate any food or water by mouth. Also admits to loose, watery stool. Patient did have exposure to Covid as his mother tested positive. Admits to shortness of breath with a pleuritic chest pain. Denies any fevers or chills. No hematemesis. No changes in his urination. No previous history of cardiac disease. No other alleviating, precipitating or modifying factors - Related Data Home Medications Medication Instructions Recorded Confirmed Atorvastatin [Lipitor] 40 mg PO HS 09/04/16 03/27/20 Cyclobenzaprine [Flexeril] 5 mg PO TID PRN 03/13/19 03/27/20 HYDROcodone/APAP 7.5-325MG [[place] 1 tab PO TID PRN 07/24/19 03/27/20 7.5-325] Tamsulosin HCl [Flomax] 0.4 mg PO MOTH 07/24/19 03/27/20 ARIPiprazole [Abilify] 10 mg PO HS 03/27/20 03/27/20 INSULIN LISPRO (HumaLOG) [humaLOG] See Protocol SQ AC-TID 03/27/20 03/27/20 Insulin Detemir [Levemir Flextouch] 30 units SQ HS 03/27/20 03/27/20 Insulin Detemir [Levemir Flextouch] 40 units SQ DAILY 03/27/20 03/27/20 Meclizine [Antivert] 25 mg PO TID PRN 03/27/20 03/27/20 Midodrine HCl [ProAmatine] 10 mg PO TID 03/27/20 03/27/20 Omeprazole 40 mg PO DAILY 03/27/20 03/27/20 Potassium Chloride ER [K-Dur 10] 10 meq PO BID 03/27/20 03/27/20 Venlafaxine HCl [Effexor XR] 225 mg PO DAILY 03/27/20 03/27/20 buPROPion HCL [Wellbutrin SR] 150 mg PO BID 03/27/20 03/27/20 Previous Rx's Medication Instructions Recorded Dexamethasone [Decadron] 6 mg PO DAILY #4 tablet 04/03/20 Zinc Sulfate [Orazinc] 220 mg PO DAILY cap 04/03/20 amLODIPine [Norvasc] 10 mg PO DAILY #30 tab 04/03/20 Allergies Allergy/AdvReac Type Severity Reaction Status Date / Time lactose AdvReac Nausea & Verified 03/27/20 12:34 Vomiting & Diarrhea Review of Systems ROS Statement: Those systems with pertinent positive or pertinent negative responses have been documented in the HPI. ROS Other: All systems not noted in ROS Statement are negative. Past Medical History Past Medical History: CVA/TIA, Diabetes Mellitus Additional Past Medical History / Comment(s): neuropathy carpel tunnel borderline bipolar History of Any Multi-Drug Resistant Organisms: MRSA Date of last positivie culture/infection: 04/22/16 MDRO Source:: Right Hand Past Surgical History: Orthopedic Surgery Additional Past Surgical History / Comment(s): Colonscopy eye cataract surg Past Anesthesia/Blood Transfusion Reactions: No Reported Reaction Past Psychological History: Anxiety, Bipolar, Depression Smoking Status: Never smoker Past Alcohol Use History: None Reported Past Drug Use History: None Reported - Past Family History Mother Family Medical History: Diabetes Mellitus Additional Family Medical History / Comment(s): Mother is alive at age 61 with history of diabetes. Patient does not have any contact with his father. Brother(s) Additional Family Medical History / Comment(s): Patient has 2 brothers and one h as history of diabetes and one has no major medical problems. Patient does not have any sisters. Patient does not have any children. General Exam Limitations: no limitations General appearance: alert, in no apparent distress, other (fatigued) Head exam: Present: atraumatic, normocephalic, normal inspection Eye exam: Present: normal appearance, PERRL, EOMI. Absent: scleral icterus, conjunctival injection, periorbital swelling ENT exam: Present: normal exam, mucous membranes moist Neck exam: Present: normal inspection. Absent: tenderness, meningismus, lymphadenopathy Respiratory exam: Present: normal lung sounds bilaterally. Absent: respiratory distress, wheezes, rales, rhonchi, stridor Cardiovascular Exam: Present: regular rate, normal rhythm, normal heart sounds. Absent: systolic murmur, diastolic murmur, rubs, gallop, clicks GI/Abdominal exam: Present: soft, normal bowel sounds. Absent: distended, tenderness, guarding, rebound, rigid Extremities exam: Present: normal inspection, full ROM, normal capillary refill. Absent: tenderness, pedal edema, joint swelling, calf tenderness Back exam: Present: normal inspection Neurological exam: Present: alert, oriented X3, CN II-XII intact Psychiatric exam: Present: normal affect, normal mood Skin exam: Present: warm, dry, intact, normal color. Absent: rash Course Vital Signs 03/27/20 03/27/20 03/27/20 12:30 15:09 19:41 Temperature 98.5 F 98.4 F Pulse Rate 63 94 80 Respiratory 18 18 19 Rate Blood Pressure 105/60 106/62 143/92 O2 Sat by Pulse 95 93 L 99 Oximetry 03/27/20 21:59 Temperature Pulse Rate Respiratory 19 Rate Blood Pressure O2 Sat by Pulse Oximetry EKG Findings - EKG Comments: EKG Findings:: EKG demonstrates normal sinus rhythm with a ventricular rate of 99. KS interval 128. QRS 80. QTC of 454. No acute ST segment elevations or depressions Medical Decision Making - Medical Decision Making Upon arrival patient [place] [id number]. A thorough history and physical exam was performed. Laboratory studies are conducted. Chest x-ray was performed. Lab studies remarkable for acute renal failure with a creatinine of 2.4. Troponin negative. Swabs does come back positive for Covid. Chest x-ray demonstrates low lung volumes and chronic changes without acute new infiltrate. Results are discussed the patient. He was given a 2 L bolus of normal saline. I did recommend hospitalization for his acute kidney failure. Case discussed with Dr. Madrid who agreed to admit the patient. He remained in stable condition awaiting a bed - Lab Data Result diagrams: 04/03/20 08:33 04/03/20 08:33 Lab Results 03/27/20 03/27/20 03/27/20 Range/Units 13:26 13:26 13:26 WBC 6.0 (3.8-10.6) k/uL RBC 4.84 (4.30-5.90) m/uL Hgb 13.1 (13.0-17.5) gm/dL Hct 38.8 L (39.0-53.0) % MCV 80.1 (80.0-100.0) fL MCH 27.1 (25.0-35.0) pg MCHC 33.9 (31.0-37.0) g/dL RDW 13.6 (11.5-15.5) % Plt Count 179 (150-450) k/uL MPV 6.8 Neutrophils % 72 % Lymphocytes % 21 % Monocytes % 5 % Eosinophils % 0 % Basophils % 1 % Neutrophils # 4.3 (1.3-7.7) k/uL Lymphocytes # 1.3 (1.0-4.8) k/uL Monocytes # 0.3 (0-1.0) k/uL Eosinophils # 0.0 (0-0.7) k/uL Basophils # 0.1 (0-0.2) k/uL PT 9.8 (9.0-12.0) sec INR 0.9 (<1.2) APTT 26.2 (22.0-30.0) sec D-Dimer 0.47 (<0.60) mg/L FEU Sodium 134 L (137-145) mmol/L Potassium 5.2 H (3.5-5.1) mmol/L Chloride 99 (98-107) mmol/L Carbon Dioxide 24 (22-30) mmol/L Anion Gap 11 mmol/L BUN 57 H (9-20) mg/dL Creatinine 2.46 H (0.66-1.25) mg/dL Est GFR (CKD-EPI)AfAm 35 (>60 ml/min/1.73 sqM) Est GFR (CKD-EPI)NonAf 30 (>60 ml/min/1.73 sqM) Glucose 234 H (74-99) mg/dL POC Glucose (mg/dL) (75-99) mg/dL POC Glu Form Setter/Driver ID Plasma Lactic Acid Andrea (0.7-2.0) mmol/L Calcium 8.8 (8.4-10.2) mg/dL Magnesium 2.0 (1.6-2.3) mg/dL Ferritin 483.2 H (22.0-322.0) ng/mL Total Bilirubin 0.4 (0.2-1.3) mg/dL AST 36 (17-59) U/L ALT 22 (4-49) U/L Alkaline Phosphatase 87 (38-126) U/L Lactate Dehydrogenase 613 (313-618) U/L Troponin I (0.000-0.034) ng/mL C-Reactive Protein 29.7 H (<10.0) mg/L Total Protein 7.0 (6.3-8.2) g/dL Albumin 4.0 (3.5-5.0) g/dL Procalcitonin (0.02-0.09) ng/mL Coronavirus (PCR) (Not Detected) Influenza Type A RNA (Not Detectd) Influenza Type B (PCR) (Not Detectd) 03/27/20 03/27/20 03/27/20 Range/Units 13:26 13:26 13:26 WBC (3.8-10.6) k/uL RBC (4.30-5.90) m/uL Hgb (13.0-17.5) gm/dL Hct (39.0-53.0) % MCV (80.0-100.0) fL MCH (25.0-35.0) pg MCHC (31.0-37.0) g/dL RDW (11.5-15.5) % Plt Count (150-450) k/uL MPV Neutrophils % % Lymphocytes % % Monocytes % % Eosinophils % % Basophils % % Neutrophils # (1.3-7.7) k/uL Lymphocytes # (1.0-4.8) k/uL Monocytes # (0-1.0) k/uL Eosinophils # (0-0.7) k/uL Basophils # (0-0.2) k/uL PT (9.0-12.0) sec INR (<1.2) APTT (22.0-30.0) sec D-Dimer (<0.60) mg/L FEU Sodium (137-145) mmol/L Potassium (3.5-5.1) mmol/L Chloride (98-107) mmol/L Carbon Dioxide (22-30) mmol/L Anion Gap mmol/L BUN (9-20) mg/dL Creatinine (0.66-1.25) mg/dL Est GFR (CKD-EPI)AfAm (>60 ml/min/1.73 sqM) Est GFR (CKD-EPI)NonAf (>60 ml/min/1.73 sqM) Glucose (74-99) mg/dL POC Glucose (mg/dL) (75-99) mg/dL POC Glu Form Setter/Driver ID Plasma Lactic Acid Andrea 1.2 (0.7-2.0) mmol/L Calcium (8.4-10.2) mg/dL Magnesium (1.6-2.3) mg/dL Ferritin (22.0-322.0) ng/mL Total Bilirubin (0.2-1.3) mg/dL AST (17-59) U/L ALT (4-49) U/L Alkaline Phosphatase (38-126) U/L Lactate Dehydrogenase (313-618) U/L Troponin I <0.012 (0.000-0.034) ng/mL C-Reactive Protein (<10.0) mg/L Total Protein (6.3-8.2) g/dL Albumin (3.5-5.0) g/dL Procalcitonin 0.16 H (0.02-0.09) ng/mL Coronavirus (PCR) (Not Detected) Influenza Type A RNA (Not Detectd) Influenza Type B (PCR) (Not Detectd) 03/27/20 03/27/20 03/27/20 Range/Units 14:00 15:08 16:48 WBC (3.8-10.6) k/uL RBC (4.30-5.90) m/uL Hgb (13.0-17.5) gm/dL Hct (39.0-53.0) % MCV (80.0-100.0) fL MCH (25.0-35.0) pg MCHC (31.0-37.0) g/dL RDW (11.5-15.5) % Plt Count (150-450) k/uL MPV Neutrophils % % Lymphocytes % % Monocytes % % Eosinophils % % Basophils % % Neutrophils # (1.3-7.7) k/uL Lymphocytes # (1.0-4.8) k/uL Monocytes # (0-1.0) k/uL Eosinophils # (0-0.7) k/uL Basophils # (0-0.2) k/uL PT (9.0-12.0) sec INR (<1.2) APTT (22.0-30.0) sec D-Dimer (<0.60) mg/L FEU Sodium (137-145) mmol/L Potassium (3.5-5.1) mmol/L Chloride (98-107) mmol/L Carbon Dioxide (22-30) mmol/L Anion Gap mmol/L BUN (9-20) mg/dL Creatinine (0.66-1.25) mg/dL Est GFR (CKD-EPI)AfAm (>60 ml/min/1.73 sqM) Est GFR (CKD-EPI)NonAf (>60 ml/min/1.73 sqM) Glucose (74-99) mg/dL POC Glucose (mg/dL) (75-99) mg/dL POC Glu Form Setter/Driver ID Plasma Lactic Acid Andrea (0.7-2.0) mmol/L Calcium (8.4-10.2) mg/dL Magnesium (1.6-2.3) mg/dL Ferritin (22.0-322.0) ng/mL Total Bilirubin (0.2-1.3) mg/dL AST (17-59) U/L ALT (4-49) U/L Alkaline Phosphatase (38-126) U/L Lactate Dehydrogenase (313-618) U/L Troponin I (0.000-0.034) ng/mL C-Reactive Protein (<10.0) mg/L Total Protein (6.3-8.2) g/dL Albumin (3.5-5.0) g/dL Procalcitonin (0.02-0.09) ng/mL Coronavirus (PCR) Detected A Detected A (Not Detected) Influenza Type A RNA Not Detected (Not Detectd) Influenza Type B (PCR) Not Detected (Not Detectd) 03/27/20 03/27/20 03/27/20 Range/Units 16:48 19:27 21:43 WBC (3.8-10.6) k/uL RBC (4.30-5.90) m/uL Hgb (13.0-17.5) gm/dL Hct (39.0-53.0) % MCV (80.0-100.0) fL MCH (25.0-35.0) pg MCHC (31.0-37.0) g/dL RDW (11.5-15.5) % Plt Count (150-450) k/uL MPV Neutrophils % % Lymphocytes % % Monocytes % % Eosinophils % % Basophils % % Neutrophils # (1.3-7.7) k/uL Lymphocytes # (1.0-4.8) k/uL Monocytes # (0-1.0) k/uL Eosinophils # (0-0.7) k/uL Basophils # (0-0.2) k/uL PT (9.0-12.0) sec INR (<1.2) APTT (22.0-30.0) sec D-Dimer (<0.60) mg/L FEU Sodium (137-145) mmol/L Potassium (3.5-5.1) mmol/L Chloride (98-107) mmol/L Carbon Dioxide (22-30) mmol/L Anion Gap mmol/L BUN (9-20) mg/dL Creatinine (0.66-1.25) mg/dL Est GFR (CKD-EPI)AfAm (>60 ml/min/1.73 sqM) Est GFR (CKD-EPI)NonAf (>60 ml/min/1.73 sqM) Glucose (74-99) mg/dL POC Glucose (mg/dL) 155 H (75-99) mg/dL POC Glu Form Setter/Driver ID Peralta, Bryanna Plasma Lactic Acid Andrea (0.7-2.0) mmol/L Calcium (8.4-10.2) mg/dL Magnesium (1.6-2.3) mg/dL Ferritin (22.0-322.0) ng/mL Total Bilirubin (0.2-1.3) mg/dL AST (17-59) U/L ALT (4-49) U/L Alkaline Phosphatase (38-126) U/L Lactate Dehydrogenase (313-618) U/L Troponin I <0.012 <0.012 (0.000-0.034) ng/mL C-Reactive Protein (<10.0) mg/L Total Protein (6.3-8.2) g/dL Albumin (3.5-5.0) g/dL Procalcitonin (0.02-0.09) ng/mL Coronavirus (PCR) (Not Detected) Influenza Type A RNA (Not Detectd) Influenza Type B (PCR) (Not Detectd) 03/27/20 03/28/20 Range/Units 23:58 06:45 WBC (3.8-10.6) k/uL RBC (4.30-5.90) m/uL Hgb (13.0-17.5) gm/dL Hct (39.0-53.0) % MCV (80.0-100.0) fL MCH (25.0-35.0) pg MCHC (31.0-37.0) g/dL RDW (11.5-15.5) % Plt Count (150-450) k/uL MPV Neutrophils % % Lymphocytes % % Monocytes % % Eosinophils % % Basophils % % Neutrophils # (1.3-7.7) k/uL Lymphocytes # (1.0-4.8) k/uL Monocytes # (0-1.0) k/uL Eosinophils # (0-0.7) k/uL Basophils # (0-0.2) k/uL PT (9.0-12.0) sec INR (<1.2) APTT (22.0-30.0) sec D-Dimer (<0.60) mg/L FEU Sodium (137-145) mmol/L Potassium (3.5-5.1) mmol/L Chloride (98-107) mmol/L Carbon Dioxide (22-30) mmol/L Anion Gap mmol/L BUN (9-20) mg/dL Creatinine (0.66-1.25) mg/dL Est GFR (CKD-EPI)AfAm (>60 ml/min/1.73 sqM) Est GFR (CKD-EPI)NonAf (>60 ml/min/1.73 sqM) Glucose (74-99) mg/dL POC Glucose (mg/dL) 168 H 142 H (75-99) mg/dL POC Glu Form Setter/Driver Tenisha Gonzalez Ashley Plasma Lactic Acid Andrea (0.7-2.0) mmol/L Calcium (8.4-10.2) mg/dL Magnesium (1.6-2.3) mg/dL Ferritin (22.0-322.0) ng/mL Total Bilirubin (0.2-1.3) mg/dL AST (17-59) U/L ALT (4-49) U/L Alkaline Phosphatase (38-126) U/L Lactate Dehydrogenase (313-618) U/L Troponin I (0.000-0.034) ng/mL C-Reactive Protein (<10.0) mg/L Total Protein (6.3-8.2) g/dL Albumin (3.5-5.0) g/dL Procalcitonin (0.02-0.09) ng/mL Coronavirus (PCR) (Not Detected) Influenza Type A RNA (Not Detectd) Influenza Type B (PCR) (Not Detectd) Disposition Clinical Impression: Dehydration, EMELI (acute kidney injury), COVID-19 Disposition: ADMITTED IP TO THIS [facility] Condition: Good Is patient prescribed a controlled substance at d/c from ED?: No Decision to Admit Reason: Admit from EC Decision Date: 03/27/20 Decision Time: 16:12
[2020-03-27 14:27] LABS: D-Dimer 0.47 mg/L FEU (<0.60); INR 0.9 (<1.2); Partial Thromboplastin Time 26.2 sec (22.0-30.0); Prothrombin Time 9.8 sec (9.0-12.0)
[2020-03-27] MEDS ORDERED: SODIUM CHLORIDE 0.9% 2,000 ML IV ONE (15:54)
[2020-03-27] MEDS ORDERED: ACETAMINOPHEN TAB 325 MG TAB PO PRN (16:12)
[2020-03-27] MEDS ORDERED: NALOXONE 0.4 MG/ML 1 ML VIAL IV PRN (16:12)
[2020-03-27] MEDS ORDERED: MECLIZINE 25 MG TAB PO PRN (18:28)
[2020-03-27] MEDS ORDERED: TAMSULOSIN 0.4 MG CAP.ER.24H PO SCH (18:30)
[2020-03-27 19:21] LABS: Ferritin 483.2 ng/mL (22.0-322.0)
[2020-03-27] MEDS: SODIUM CHLORIDE 0.9% 1,000 ML IV SCH (19:47)
[2020-03-27] MEDS: POTASSIUM CHLORIDE ER 10 MEQ TAB.ER.PRT PO SCH (21:03)
[2020-03-27] MEDS: ATORVASTATIN 40 MG TAB PO SCH (21:15)
[2020-03-27] MEDS: MIDODRINE 5 MG TAB PO SCH (21:15)
[2020-03-27] MEDS: HYDROcodone/APAP 7.5-325MG 1 EACH TAB PO PRN (21:16)
[2020-03-27 21:45] LABS: Glucose,Whole Blood 155 mg/dL (75-99)
[2020-03-27] MEDS: INSULIN DETEMIR (LEVEMIR) 100 UNIT/ML SYR SQ SCH (21:53)
[2020-03-27] MEDS: CYCLOBENZAPRINE 5 MG TAB PO PRN (21:55)
--- NOTE | 2020-03-27 22:52 | P.HPIM ---
History of Present Illness H&P Date: 03/27/20 Chief Complaint: Abdominal pain, nausea vomiting diarrhea, Coreg 19 infection 49-year-old male with history of mild obesity, hypertension and hyperlipidemia was seen the demurs department because of worsening symptom of nausea and vomiting along with diarrhea for the last few days. According to him his family were tested with Covid positive between his mom and brother and had severe significant exposure the patient lives with his mom. Patient admits to shortness of breath with pleuritic chest pain on and off along with low-grade temperature with no hematemesis slight increased urination mild lower back pain. Patient ended up being diagnosed with Covid 19 infection surprisingly with the severity of dehydration and prerenal patient was in acute anemia injury most l ikely ATN with chronic kidney disease. Blood sugar was quite bit elevated with elevated A1c. Patient was admitted start on O2 hydration will consult nephrology and consult infectious disease. Review of Systems CONSTITUTIONAL: Well-developed no acute respiratory mildly overweight EYES: No icterus sclerae, no conjunctivitis. EARS, NOSE, MOUTH, THROAT, and FACE: No sore throat, lymphadenopathy, carotid bruits or deformity. RESPIRATORY: Mild shortness of breath cough. CARDIOVASCULAR: No CP, Palpitation, PND, Orthopnea, or angina. GASTROINTESTINAL: Positive abdominal discomfort with nausea vomiting diarrhea GENITOURINARY: Negative for Hematuria or UTI, no kidney stones. Acute kidney injury INTEGUMENT/BREAST: Negative for any muscular injury with mild osteoarthritis.. HEMATOLOGIC/LYMPHATIC: Negative for bleed or purpura. MUSCULOSKELTAL: Negative for Myalgia or arthralgia. NEURLOGICAL: No LOC, Sz or syncope, blurred vision dizziness or abnormality.. BEHAVIORAL/PSYCH: Negative. ENDOCRINE: Negative. Past Medical History Past Medical History: CVA/TIA, Diabetes Mellitus Additional Past Medical History / Comment(s): neuropathy carpel tunnel borderline bipolar History of Any Multi-Drug Resistant Organisms: MRSA Date of last positivie culture/infection: 04/22/16 MDRO Source:: Right Hand Past Surgical History: Orthopedic Surgery Additional Past Surgical History / Comment(s): Colonscopy eye cataract surg Past Anesthesia/Blood Transfusion Reactions: No Reported Reaction Past Psychological History: Anxiety, Bipolar, Depression Smoking Status: Never smoker Past Alcohol Use History: None Reported Past Drug Use History: None Reported - Past Family History Mother Family Medical History: Diabetes Mellitus Additional Family Medical History / Comment(s): Mother is alive at age 61 with history of diabetes. Patient does not have any contact with his father. Brother(s) Additional Family Medical History / Comment(s): Patient has 2 brothers and one has history of diabetes and one has no major medical problems. Patient does not have any sisters. Patient does not have any children. Medications and Allergies Home Medications Medication Instructions Recorded Confirmed Type Atorvastatin [Lipitor] 40 mg PO HS 09/04/16 03/27/20 History Cyclobenzaprine [Flexeril] 5 mg PO TID PRN 03/13/19 03/27/20 History HYDROcodone/APAP 7.5-325MG [[place] 1 tab PO TID PRN 07/24/19 03/27/20 History 7.5-325] Tamsulosin HCl [Flomax] 0.4 mg PO MOTH 07/24/19 03/27/20 History ARIPiprazole [Abilify] 10 mg PO HS 03/27/20 03/27/20 History INSULIN LISPRO (HumaLOG) [humaLOG] See Protocol SQ AC-TID 03/27/20 03/27/20 History Insulin Detemir [Levemir Flextouch] 30 units SQ HS 03/27/20 03/27/20 History Insulin Detemir [Levemir Flextouch] 40 units SQ DAILY 03/27/20 03/27/20 History Meclizine [Antivert] 25 mg PO TID PRN 03/27/20 03/27/20 History Midodrine HCl [ProAmatine] 10 mg PO TID 03/27/20 03/27/20 History Omeprazole 40 mg PO DAILY 03/27/20 03/27/20 History Potassium Chloride ER [K-Dur 10] 10 meq PO BID 03/27/20 03/27/20 History Venlafaxine HCl [Effexor XR] 225 mg PO DAILY 03/27/20 03/27/20 History buPROPion HCL [Wellbutrin SR] 150 mg PO BID 03/27/20 03/27/20 History lisinopriL [Zestril] 2.5 mg PO DAILY 03/27/20 03/27/20 History Allergies Allergy/AdvReac Type Severity Reaction Status Date / Time lactose AdvReac Nausea & Verified 03/27/20 12:34 Vomiting & Diarrhea Physical Exam Vitals: Vital Signs Temp Pulse Resp BP Pulse Ox 03/27/20 15:09 94 18 106/62 93 L 03/27/20 12:30 98.5 F 63 18 105/60 95 Intake and Output 03/27/20 03/27/20 03/27/20 06:59 14:59 22:59 Other: Weight 99.79 kg General Appearance: Alert, cooperative, no distress, significantly overweight Neck HEENT: Supple, no lymphadenopathy, no thyroid enlargement, no carotid bruits. Lungs: Clear to auscultation without crackles or wheezes no rhonchi, no deformity. Chest Wall: Decrease expansion with deep inspiration no tenderness and no deformity was found on exam, no costochondral pain or discomfort. Heart: Regular rate and rhythm, S1, S2 normal, no murmur, rub or gallop. Back: Symmetric, no curvature, ROM normal, no CVA tenderness. Abdomen: Soft, non-tender, bowel sounds active all four quadrants, no masses, no organomegaly. Extremities: Extremities normal, atraumatic, no cyanosis or edema. Pulses: 2+ and symmetric. Skin: Skin color, texture, tugor normal, no rashes or lesions. Neurologic: Alert oriented x3 cranial nerves II through XII intact, no motor deficit, no abnormal balance or gait. Results CBC & Chem 7: 03/27/20 13:26 03/27/20 13:26 Labs: Abnormal Lab Results - Last 24 Hours (Table) 03/27/20 03/27/20 03/27/20 Range/Units 13:26 13:26 16:48 Hct 38.8 L (39.0-53.0) % Sodium 134 L (137-145) mmol/L Potassium 5.2 H (3.5-5.1) mmol/L BUN 57 H (9-20) mg/dL Creatinine 2.46 H (0.66-1.25) mg/dL Glucose 234 H (74-99) mg/dL C-Reactive Protein 29.7 H (<10.0) mg/L Coronavirus (PCR) Detected A (Not Detectd) Thrombosis Risk Factor Assmnt - DVT/VTE Prophylaxis DVT/VTE Prophylaxis: Pharmacologic Prophylaxis ordered Assessment and Plan Assessment: 1 Acute Covid 19 infection: Continue supportive care with O2, zinc, vitamin C and vitamin D consult infectious disease patient is not severely hypoxic does not need to start any antiviral medication. 2 acute kidney injury with BUN of 57 creatinine is 2.46 which is much higher than his baseline continue hydration repeat BUN/creatinine 24 hours. 3 type 2 diabetes: We'll resume patient Levemir along with NovoLog, continue Accu-Chek with sliding scales coverage. 4 Hypertension: Patient still running slightly bit low with hypertension still on midodrine 10 mg 3 times a day. 5 hyperlipidemia: Remain on atorvastatin 40 mg daily. 6 chronic depression: Patient remain on Wellbutrin along with Effexor or and Abilify. 7 chronic pain syndrome: Remain on hydrocodone as needed. 8 severe GERD/GI prophylaxis: Remain on omeprazole 20 mg daily . 9 DVT prophylaxis: Patient be on Lovenox 40 mg subcutaneous daily. 10 mild elective slight imbalance: Continue to watch potassium and sodium level. CODE STATUS: Full code. Admit patient to the inpatient service for more than 2 night stay.
[2020-03-27] MEDS: buPROPion SR 150 MG TABLET.ER PO SCH (23:19)
[2020-03-27] MEDS: ARIPiprazole 10 MG TAB PO SCH (23:20)
[2020-03-28 00:05] LABS: Glucose,Whole Blood 168 mg/dL (75-99)
[2020-03-28] MEDS: SODIUM CHLORIDE 0.9% 1,000 ML IV SCH ×3 (03:00→22:08)
[2020-03-28] MEDS: HYDROcodone/APAP 7.5-325MG 1 EACH TAB PO PRN (03:03)
[2020-03-28] MEDS: CYCLOBENZAPRINE 5 MG TAB PO PRN (05:18)
[2020-03-28 06:47] LABS: Glucose,Whole Blood 142 mg/dL (75-99)
[2020-03-28] MEDS: PANTOPRAZOLE 40 MG TABLET PO SCH (06:50)
[2020-03-28 07:53] LABS: Basophils % (A) 0 %; Eosinophils % (A) 0 %; HCT 32.3 % (39.0-53.0); Lymphocytes # (A) 0.9 k/uL (1.0-4.8); Lymphocytes % (A) 23 %; MCH 27.6 pg (25.0-35.0); MCHC 34.2 g/dL (31.0-37.0); MCV 80.7 fL (80.0-100.0); Monocytes # (A) 0.2 k/uL (0-1.0); Monocytes % (A) 4 %; Neutrophils % (A) 71 %; Platelet Count 170 k/uL (150-450); RDW 13.7 % (11.5-15.5); WBC 4.2 k/uL (3.8-10.6)
[2020-03-28 08:07] LABS: Calcium 7.9 mg/dL (8.4-10.2); Potassium 4.4 mmol/L (3.5-5.1)
[2020-03-28] MEDS: MIDODRINE 5 MG TAB PO SCH ×3 (08:09→18:47)
[2020-03-28] MEDS: POTASSIUM CHLORIDE ER 10 MEQ TAB.ER.PRT PO SCH (10:21)
[2020-03-28] MEDS: ENOXAPARIN 40 MG/0.4 ML SYRINGE SQ SCH (10:21)
[2020-03-28] MEDS: buPROPion SR 150 MG TABLET.ER PO SCH ×2 (10:21→22:19)
[2020-03-28] MEDS: INSULIN DETEMIR (LEVEMIR) 100 UNIT/ML SYR SQ SCH ×2 (10:21→22:04)
[2020-03-28] MEDS: VENLAFAXINE HCL ER 75 MG CAP PO SCH (10:22)
--- NOTE | 2020-03-28 10:55 | P.PN ---
Subjective Progress Note Date: 03/28/20 HISTORY OF PRESENT ILLNESS 49-year-old male with history of mild obesity, hypertension and hyperlipidemia was seen the demurs department because of worsening symptom of nausea and v omiting along with diarrhea for the last few days. According to him his family were tested with Covid positive between his mom and brother and had severe significant exposure the patient lives with his mom. Patient admits to shortness of breath with pleuritic chest pain on and off along with low-grade temperature with no hematemesis slight increased urination mild lower back pain. Patient ended up being diagnosed with Covid 19 infection surprisingly with the severity of dehydration and prerenal patient was in acute anemia injury most likely ATN with chronic kidney disease. Blood sugar was quite bit elevated with elevated A1c. Patient was admitted start on O2 hydration will consult nephro logy and consult infectious disease. 03/28: Patient continues to feel lethargic and tired. He denies any shortness of breath. He has a little diarrhea. No nausea or vomiting. Repeat blood work reveals WBC 4.2, hemoglobin 11, lymphocytes 0.9. Electrolytes normal. BUN 57 creatinine 2.14. Consult in place for nephrology and infectious disease. He is currently on IV fluids at 130 mL/h we'll continue until seen by nephrology. REVIEW OF SYSTEMS CONSTITUTIONAL: Well-developed no acute respiratory mildly overweight. Denies fever. EYES: No icterus sclerae, no conjunctivitis. EARS, NOSE, MOUTH, THROAT, and FACE: No sore throat, lymphadenopathy, carotid bruits or deformity. RESPIRATORY: Mild shortness of breath cough. CARDIOVASCULAR: No CP, Palpitation, PND, Orthopnea, or angina. GASTROINTESTINAL: Positive abdominal discomfort with nausea vomiting diarrhea GENITOURINARY: Negative for Hematuria or UTI, no kidney stones. Acute kidney injury INTEGUMENT/BREAST: Negative for any muscular injury with mild osteoarthritis.. HEMATOLOGIC/LYMPHATIC: Negative for bleed or purpura. MUSCULOSKELTAL: Negative for Myalgia or arthralgia. NEURLOGICAL: No LOC, Sz or syncope, blurred vision dizziness or abnormality.. BEHAVIORAL/PSYCH: Negative. ENDOCRINE: Negative. PHYSICAL EXAMINATION General Appearance: Alert, cooperative, no distress, significantly overweight Neck HEENT: Supple, no lymphadenopathy, no thyroid enlargement, no carotid br uits. Lungs: Clear to auscultation without crackles or wheezes no rhonchi, no deformity. Chest Wall: Decrease expansion with deep inspiration no tenderness and no deformity was found on exam, no costochondral pain or discomfort. Heart: Regular rate and rhythm, S1, S2 normal, no murmur, rub or gallop. Back: Symmetric, no curvature, ROM normal, no CVA tenderness. Abdomen: Soft, non-tender, bowel sounds active all four quadrants, no masses, no organomegaly. Extremities: Extremities normal, atraumatic, no cyanosis or edema. Pulses: 2+ and symmetric. Skin: Skin color, texture, tugor normal, no rashes or lesions. Neurologic: Alert oriented x3 cranial nerves II through XII intact, no motor deficit, no abnormal balance or gait. ASSESSMENT AND PLAN 1 Acute Covid 19 infection: Continue supportive care with O2, zinc, vitamin C and vitamin D consult infectious disease. 2 acute kidney injury. Nephrology consult. Continue IV fluids 3 type 2 diabetes: We'll resume patient Levemir along with NovoLog, continue Accu-Chek with sliding scales coverage. 4 Hypertension: Patient still running slightly bit low with hypertension still on midodrine 10 mg 3 times a day. 5 hyperlipidemia: Remain on atorvastatin 40 mg daily. 6 chronic depression: Patient remain on Wellbutrin along with Effexor or and Abilify. 7 chronic pain syndrome: Remain on hydrocodone as needed. 8 severe GERD/GI prophylaxis: Remain on omeprazole 20 mg daily . 9 DVT prophylaxis: Patient be on Lovenox 40 mg subcutaneous daily. 10 mild elective slight imbalance: Continue to watch potassium and sodium level. CODE STATUS: Full code. DISCHARGE PLAN Home. Impression and plan of care have been directed as dictated by the signing physician. Melvi Vieyra nurse practitioner acting as scribe for signing physician. Objective - Vital Signs Vital signs: Vital Signs Temp 98.4 F 03/28/20 08:24 Pulse 93 03/28/20 08:24 Resp 16 03/28/20 08:24 BP 152/73 03/28/20 08:24 Pulse Ox 91 L 03/28/20 08:24 Intake & Output 03/27/20 03/28/20 03/28/20 18:59 06:59 18:59 Intake Total 300 Balance 300 Weight 99.79 kg 99.79 kg Intake: Oral 300 Other: Voiding Method Toilet # Bowel Movements 1 - Labs CBC & Chem 7: 03/28/20 07:19 03/28/20 07:19 Labs: Abnormal Lab Results - Last 24 Hours (Table) 03/27/20 03/27/20 03/27/20 Range/Units 13:26 13:26 13:26 RBC (4.30-5.90) m/uL Hgb (13.0-17.5) gm/dL Hct 38.8 L (39.0-53.0) % Lymphocytes # (1.0-4.8) k/uL Sodium 134 L (137-145) mmol/L Potassium 5.2 H (3.5-5.1) mmol/L BUN 57 H (9-20) mg/dL Creatinine 2.46 H (0.66-1.25) mg/dL Glucose 234 H (74-99) mg/dL POC Glucose (mg/dL) (75-99) mg/dL Calcium (8.4-10.2) mg/dL Ferritin 483.2 H (22.0-322.0) ng/mL C-Reactive Protein 29.7 H (<10.0) mg/L Procalcitonin 0.16 H (0.02-0.09) ng/mL Coronavirus (PCR) (Not Detected) 03/27/20 03/27/20 03/27/20 Range/Units 14:00 16:48 21:43 RBC (4.30-5.90) m/uL Hgb (13.0-17.5) gm/dL Hct (39.0-53.0) % Lymphocytes # (1.0-4.8) k/uL Sodium (137-145) mmol/L Potassium (3.5-5.1) mmol/L BUN (9-20) mg/dL Creatinine (0.66-1.25) mg/dL Glucose (74-99) mg/dL POC Glucose (mg/dL) 155 H (75-99) mg/dL Calcium (8.4-10.2) mg/dL Ferritin (22.0-322.0) ng/mL C-Reactive Protein (<10.0) mg/L Procalcitonin (0.02-0.09) ng/mL Coronavirus (PCR) Detected A Detected A (Not Detected) 03/27/20 03/28/20 03/28/20 Range/Units 23:58 06:45 07:19 RBC 4.00 L (4.30-5.90) m/uL Hgb 11.0 L (13.0-17.5) gm/dL Hct 32.3 L (39.0-53.0) % Lymphocytes # 0.9 L (1.0-4.8) k/uL Sodium (137-145) mmol/L Potassium (3.5-5.1) mmol/L BUN (9-20) mg/dL Creatinine (0.66-1.25) mg/dL Glucose (74-99) mg/dL POC Glucose (mg/dL) 168 H 142 H (75-99) mg/dL Calcium (8.4-10.2) mg/dL Ferritin (22.0-322.0) ng/mL C-Reactive Protein (<10.0) mg/L Procalcitonin (0.02-0.09) ng/mL Coronavirus (PCR) (Not Detected) 03/28/20 Range/Units 07:19 RBC (4.30-5.90) m/uL Hgb (13.0-17.5) gm/dL Hct (39.0-53.0) % Lymphocytes # (1.0-4.8) k/uL Sodium (137-145) mmol/L Potassium (3.5-5.1) mmol/L BUN 57 H (9-20) mg/dL Creatinine 2.14 H (0.66-1.25) mg/dL Glucose 145 H (74-99) mg/dL POC Glucose (mg/dL) (75-99) mg/dL Calcium 7.9 L (8.4-10.2) mg/dL Ferritin (22.0-322.0) ng/mL C-Reactive Protein (<10.0) mg/L Procalcitonin (0.02-0.09) ng/mL Coronavirus (PCR) (Not Detected)
[2020-03-28 12:25] LABS: Glucose,Whole Blood 160 mg/dL (75-99)
--- NOTE | 2020-03-28 12:37 | CONS ---
CONSULTATION REASON FOR CONSULT: Renal failure. HISTORY OF PRESENT ILLNESS: Patient is a 49-year-old male who was admitted to the hospital with complaints of weakness, not feeling well. He also had nausea, vomiting, diarrhea and abdominal pain. Patient states that his brother and mother are positive for COVID at home. Patient was tested upon admission and he was positive. Patient denies any prior history of kidney diseases. His serum creatinine was 2.46 mg/dL on admission and it is now down to 2.1. Previous creatinine noted to be 1.7, 1.8 in July of 2019 and April of 2019. Patient's blood pressure has not been significantly low, although on initial admission, he was about 105-106 mmHg. Patient denies use of any nonsteroidal anti-inflammatory agents prior to admission. He was maintained on TALITA inhibitors prior to admission, although it was a very low dose. Currently, patient is maintained on IV fluids. Overall, he states he is feeling better. PAST MEDICAL HISTORY: Significant for hypertension, type 2 diabetes, history of CVA/TIA, history of neuropathy, bipolar disorder, history of MRSA infection right hand. PAST SURGICAL HISTORY: Colonoscopy, cataract surgery. SOCIAL HISTORY: Negative for smoking, drug abuse or alcohol abuse. MEDICATIONS: Prior to admission include Lipitor, Flexeril, [place], Flomax, Abilify, insulin, Antivert, midodrine, omeprazole, potassium, Effexor, Wellbutrin, Zestril. ALLERGIES: Include LACTOSE which cause nausea, vomiting, and diarrhea. REVIEW OF SYSTEMS: As per HPI. Other systems negative. PHYSICAL EXAMINATION: Patient is currently comfortable. He is sleepy but arousable, not in any acute distress. Blood pressure 152/73, heart rate 93 per minute, he is afebrile. O2 saturations 91% on room air. Examination shows no evidence of edema lower extremities. Abdomen is soft, nontender. Lungs and heart not examined due to COVID. INFORMATION SECURITY ARCHITECT exam grossly intact, patient is moving all 4 extremities. LABS: Show sodium 137, potassium 4.4, chloride 106, CO2 is 24, BUN 57, creatinine 2.14, hemoglobin 11.0 g/dL. CHEST X-RAY: Shows chronic changes without any new acute infiltrates. ASSESSMENT: 1. Acute kidney injury, prerenal. Continue with IV fluids. Continue to hold off on TALITA inhibitors. Check urinalysis. Avoid nephrotoxic agents. Patient is maintained on midodrine. His blood pressure is currently on the higher side. I will add parameters to the midodrine. 2. COVID-19 infection. Awaiting ID consult. Chest x-ray shows no infiltrates. Nausea, vomiting, diarrhea seems to have improved. 3. Mild hyperkalemia, DC the potassium supplementation that patient is taking at home. 4. Chronic kidney disease, most likely stage III, previous creatinine was about 1.7 and 1.8 mg/dL in July and April of 2019. In 2018 his creatinine was mostly about 1.4 mg/dL. Etiology is likely diabetic kidney disease. Previous UA in November of 2019 showed 1+ protein. PLAN: Continue IV fluids. DC potassium. Hold TALITA inhibitors, add parameters to midodrine as blood pressure is currently on the higher side, check urinalysis. Thank you for this consultation. Will continue to follow the patient during his hospitalization. MMODL / IJN: [id number] /
[2020-03-28 15:08] LABS: Appearance,Urine Clear (Clear); Bilirubin,Urine Negative (Negative); Blood,Urine Trace (Negative); Color,Urine Yellow; Glucose,Urine (UA) Negative (Negative); Hyaline Casts,Urine 3 /lpf (0-2); Ketones,Urine Negative (Negative); Leukocyte Esterase,Urine Negative (Negative); Mucus,Urine Rare /hpf; Nitrite,Urine Negative (Negative); PH, Urine 5.5 (5.0-8.0); Protein,Urine 2+ (Negative); RBC,Urine 1 /hpf (0-5); Specific Gravity,Urine 1.017 (1.001-1.035); Urobilinogen,Urine <2.0 mg/dL (<2.0); WBC,Urine 1 /hpf (0-5)
[2020-03-28 17:08] LABS: Glucose,Whole Blood 109 mg/dL (75-99)
[2020-03-28 17:37] LABS: Hemoglobin A1C 8.1 % (4.0-6.0)
[2020-03-28 22:09] LABS: Glucose,Whole Blood 63 mg/dL (75-99)
[2020-03-28] MEDS: ARIPiprazole 10 MG TAB PO SCH (22:18)
[2020-03-28] MEDS: ATORVASTATIN 40 MG TAB PO SCH (22:18)
[2020-03-28 22:27] LABS: Glucose,Whole Blood 61 mg/dL (75-99)
[2020-03-28 22:54] LABS: Glucose,Whole Blood 67 mg/dL (75-99)
[2020-03-28 22:54] LABS: Glucose,Whole Blood 100 mg/dL (75-99)
--- NOTE | 2020-03-28 23:23 | P.CONS ---
History of Present Illness - Reason for Consult Consult date: 03/28/20 covid 19 Requesting physician: Terrence Madrid - Chief Complaint vomiting, dairrhea x few days - History of Present Illness Patient is a 49-year-old male with a past medical his significant for CVA diabetes mellitus and this patient has been brought into the ER at [facility] for evaluation of nausea vomiting and diarrhea patient has been going on for the last few days and the patient unable to tolerate any food or water by mouth currently the patient is exposed to his mother has tested positive for Covid patient also complains of shortness of breath but no cough fever or chills on presentation to the hospital patient has been afebrile patient did have mild hypoxemia currently on nasal cannula patient did have a negative UA he did have mild lymphopenia D-dimer was normal creatinine was 2.14 with also 0.16 CRP 29.7 urine is negative coronavirus PCR came back positive patient did have a chest x-ray that was negative for any acute infiltrate patient is currently being treated with IV fluid in addition to the Lovenox infection was consulted for further management of antibiotic therapy most information has been obtained from the chart the patient is evaluated good historian Review of Systems Positive point has been mentioned in HPI complete review could not be obtained because of underlying mental status Past Medical History Past Medical History: CVA/TIA, Diabetes Mellitus Additional Past Medical History / Comment(s): neuropathy carpel tunnel borderline bipolar History of Any Multi-Drug Resistant Organisms: MRSA Year Discovered:: 04/22/16 MDRO Source:: Right Hand Past Surgical History: Orthopedic Surgery Additional Past Surgical History / Comment(s): Colonscopy eye cataract surg. Right hand surgery. Past Anesthesia/Blood Transfusion Reactions: No Reported Reaction Past Psychological History: Anxiety, Bipolar, Depression Smoking Status: Never smoker Past Alcohol Use History: None Reported Additional Past Alcohol Use History / Comment(s): Patient is a lifelong nonsmoker. He lives with mother Past Drug Use History: None Reported - Past Family History Mother Family Medical History: Diabetes Mellitus Additional Family Medical History / Comment(s): Mother is alive at age 61 with history of diabetes. Patient does not have any contact with his father. Brother(s) Additional Family Medical History / Comment(s): Patient has 2 brothers and one has history of diabetes and one has no major medical problems. Patient does not have any sisters. Patient does not have any children. Medications and Allergies Home Medications Medication Instructions Recorded Confirmed Type Atorvastatin [Lipitor] 40 mg PO HS 09/04/16 03/27/20 History Cyclobenzaprine [Flexeril] 5 mg PO TID PRN 03/13/19 03/27/20 History HYDROcodone/APAP 7.5-325MG [[place] 1 tab PO TID PRN 07/24/19 03/27/20 History 7.5-325] Tamsulosin HCl [Flomax] 0.4 mg PO MOTH 07/24/19 03/27/20 History ARIPiprazole [Abilify] 10 mg PO HS 03/27/20 03/27/20 History INSULIN LISPRO (HumaLOG) [humaLOG] See Protocol SQ AC-TID 03/27/20 03/27/20 History Insulin Detemir [Levemir Flextouch] 30 units SQ HS 03/27/20 03/27/20 History Insulin Detemir [Levemir Flextouch] 40 units SQ DAILY 03/27/20 03/27/20 History Meclizine [Antivert] 25 mg PO TID PRN 03/27/20 03/27/20 History Midodrine HCl [ProAmatine] 10 mg PO TID 03/27/20 03/27/20 History Omeprazole 40 mg PO DAILY 03/27/20 03/27/20 History Potassium Chloride ER [K-Dur 10] 10 meq PO BID 03/27/20 03/27/20 History Venlafaxine HCl [Effexor XR] 225 mg PO DAILY 03/27/20 03/27/20 History buPROPion HCL [Wellbutrin SR] 150 mg PO BID 03/27/20 03/27/20 History lisinopriL [Zestril] 2.5 mg PO DAILY 03/27/20 03/27/20 History Allergies Allergy/AdvReac Type Severity Reaction Status Date / Time lactose AdvReac Nausea & Verified 03/27/20 12:34 Vomiting & Diarrhea Physical Exam Vitals: Vital Signs Temp Pulse Resp BP Pulse Ox 03/28/20 15:00 16 94 L 03/28/20 14:55 97.7 F 03/28/20 14:54 79 16 141/73 03/28/20 09:00 16 03/28/20 08:24 98.4 F 93 16 152/73 91 L 03/28/20 03:00 98.4 F 85 18 146/80 97 03/27/20 23:54 98.2 F 03/27/20 23:23 87 18 164/88 97 03/27/20 21:59 19 Intake and Output 03/28/20 03/28/20 03/28/20 06:59 14:59 22:59 Intake Total 300 1440 Output Total 1575 Balance 300 -135 Intake: IV 1440 Sodium Chloride 0.9% 1, 1440 000 ml @ 130 mls/hr IV . [id number] [facility] Rx#:[id number] Oral 300 Output: Urine 1575 Uretheral (Rosado) 750 Other: Voiding Method Toilet Urinal Indwelling Catheter Weight 99.79 kg GENERAL DESCRIPTION: Middle-aged male lying in bed, no distress. No tachypnea or accessory muscle of respiration use. HEENT: Shows Pallor , no scleral icterus. Oral mucous membrane is dry. NECK: Trachea central, no thyromegaly. LUNGS: Unlabored breathing. Decreased breath sound the base. No wheeze or crackle. HEART: S1, S2, regular rate and rhythm. ABDOMEN: Soft, no tenderness , guarding or rigidity EXTREMITIES: No edema of feet. SKIN: No rash, no masses palpable. NEUROLOGICAL: The patient is awake, alert, oriented x2, mood and affect normal. Results CBC & Chem 7: 03/28/20 07:19 03/28/20 07:19 Labs: Abnormal Lab Results - Last 24 Hours (Table) 03/27/20 03/27/20 03/28/20 Range/Units 14:00 23:58 06:45 RBC (4.30-5.90) m/uL Hgb (13.0-17.5) gm/dL Hct (39.0-53.0) % Lymphocytes # (1.0-4.8) k/uL BUN (9-20) mg/dL Creatinine (0.66-1.25) mg/dL Glucose (74-99) mg/dL POC Glucose (mg/dL) 168 H 142 H (75-99) mg/dL Hemoglobin A1c (4.0-6.0) % Calcium (8.4-10.2) mg/dL Urine Protein (Negative) Urine Blood (Negative) Hyaline Casts (0-2) /lpf Urine Mucus (None) /hpf Coronavirus (PCR) Detected A (Not Detected) 03/28/20 03/28/20 03/28/20 Range/Units 07:19 07:19 07:19 RBC 4.00 L (4.30-5.90) m/uL Hgb 11.0 L (13.0-17.5) gm/dL Hct 32.3 L (39.0-53.0) % Lymphocytes # 0.9 L (1.0-4.8) k/uL BUN 57 H (9-20) mg/dL Creatinine 2.14 H (0.66-1.25) mg/dL Glucose 145 H (74-99) mg/dL POC Glucose (mg/dL) (75-99) mg/dL Hemoglobin A1c 8.1 H (4.0-6.0) % Calcium 7.9 L (8.4-10.2) mg/dL Urine Protein (Negative) Urine Blood (Negative) Hyaline Casts (0-2) /lpf Urine Mucus (None) /hpf Coronavirus (PCR) (Not Detected) 03/28/20 03/28/20 03/28/20 Range/Units 12:22 14:00 17:05 RBC (4.30-5.90) m/uL Hgb (13.0-17.5) gm/dL Hct (39.0-53.0) % Lymphocytes # (1.0-4.8) k/uL BUN (9-20) mg/dL Creatinine (0.66-1.25) mg/dL Glucose (74-99) mg/dL POC Glucose (mg/dL) 160 H 109 H (75-99) mg/dL Hemoglobin A1c (4.0-6.0) % Calcium (8.4-10.2) mg/dL Urine Protein 2+ H (Negative) Urine Blood Trace H (Negative) Hyaline Casts 3 H (0-2) /lpf Urine Mucus Rare H (None) /hpf Coronavirus (PCR) (Not Detected) Assessment and Plan Assessment: patient presented to hospital predominantly with GI symptoms with respiratory nausea vomiting diarrhea unable to keep anything down patient did have a positive Covid test and did have exposure to his mother chest x-ray has been negative but he did have mild hypoxemia possible mild COVID-19 infection (1) COVID-19 Current Visit: Yes Status: Acute Code(s): U07.1 - COVID-19 SNOMED Code(s): 825009362 Plan: 1-patient continued Lovenox well and had dexamethasone 6 mg IV daily and zinc sulfate and vitamin C 2-we will hold on adding remdesivir at this point 3-recheck a chest x-ray and inflammatory markers tomorrow 4-IV fluid We will follow on clinical condition and cultures to further adjust medication if needed Thank you for this consultation we will follow the patient along with you Time with Patient: Greater than 30
[2020-03-28] MEDS: DEXAMETHASONE SOD PHOSPHATE 10 MG/ML 1 ML VIAL IV SCH (23:51)
[2020-03-29] MEDS: SODIUM CHLORIDE 0.9% 1,000 ML IV SCH ×4 (00:18→23:16)
[2020-03-29 02:41] LABS: Glucose,Whole Blood 169 mg/dL (75-99)
[2020-03-29] MEDS: PANTOPRAZOLE 40 MG TABLET PO SCH (06:30)
[2020-03-29] MEDS: MIDODRINE 5 MG TAB PO SCH ×3 (06:33→16:56)
[2020-03-29 06:34] LABS: Glucose,Whole Blood 164 mg/dL (75-99)
[2020-03-29] MEDS: INSULIN DETEMIR (LEVEMIR) 100 UNIT/ML SYR SQ SCH ×2 (06:58→20:35)
--- NOTE | 2020-03-29 08:19 | XR ---
EXAMINATION TYPE: XR chest 1V portable DATE OF EXAM: 03/29/2020 COMPARISON: Prior chest x-ray 03/27/2020 HISTORY: Pneumonia TECHNIQUE: Single frontal view of the chest is obtained. FINDINGS: Lung volumes are low. Patchy bilateral density again seen within the lungs. No evident pne umothorax or pleural effusion. Cardiac mediastinal silhouette is stable. IMPRESSION: Correlate for pneumonia. Follow-up recommended.
[2020-03-29] MEDS: ENOXAPARIN 40 MG/0.4 ML SYRINGE SQ SCH (09:35)
[2020-03-29] MEDS: VENLAFAXINE HCL ER 75 MG CAP PO SCH (09:35)
[2020-03-29] MEDS: ZINC SULFATE 220 MG CAP PO SCH (09:35)
[2020-03-29] MEDS: DEXAMETHASONE SOD PHOSPHATE 10 MG/ML 1 ML VIAL IV SCH (09:35)
[2020-03-29] MEDS: buPROPion SR 150 MG TABLET.ER PO SCH ×2 (09:35→20:35)
[2020-03-29 09:39] LABS: C Reactive Protein 25.9 mg/L (<10.0)
--- NOTE | 2020-03-29 11:29 | PN ---
PROGRESS NOTE Patient is seen for followup for acute kidney injury. He is COVID positive. Serum creatinine was 2.4 on initial admission, it was down to 2.1 yesterday. We do not have labs back from today yet. Previous creatinine was about 1.8-1.7 in April and July of 2019. Currently patient is maintained on IV fluids. He was quite lethargic today, but seems to have improved today. The patient has had good urine output, he has an indwelling Rosado catheter. A 24 hour urine output at 3.5 L. PHYSICAL EXAMINATION: On examination today, blood pressure was elevated 179/93, heart rate 90 per minute, he is afebrile. Examination shows no evidence of edema, bilateral lower extremities. Abdomen is soft, nontender. FLIGHT RESERVATIONS MANAGER exam grossly intact. LABS: Pending from today. ASSESSMENT: 1. Acute kidney injury, prerenal and associated with underlying COVID infection. Renal function has been improving. Labs are pending from today. Continue with IV hydration. Continue to hold off on TALITA inhibitors. UA shows 2+ protein, trace blood was noted. I will check an ultrasound of the kidneys as well. 2. COVID-19 infection, no infiltrates on chest x-ray. Patient was admitted with nausea, vomiting and diarrhea, which seem to have improved. 3. Volume depletion, maintained on IV fluids. 4. Mild hyperkalemia, currently off potassium supplementation. Etiology is acute kidney injury an TALITA inhibitors. 5. Chronic kidney disease stage 3, previous creatinine 1.7-1.8 in July and April of 2019. Etiology is likely diabetic kidney disease. Can resume TALITA inhibitors down the road as outpatient. The patient will need followup as outpatient for CKD. PLAN: Continue IV fluids. Add Norvasc for blood pressure as blood pressure is uncontrolled secondary to steroids. Repeat labs today and then in a.m. MMODL / IJN: [id number] /
[2020-03-29 11:43] LABS: Glucose,Whole Blood 156 mg/dL (75-99)
--- NOTE | 2020-03-29 12:17 | P.PN ---
Subjective Progress Note Date: 03/29/20 HISTORY OF PRESENT ILLNESS 49-year-old male with history of mild obesity, hypertension and hyperlipidemia was seen the demurs department because of worsening symptom of nausea and v omiting along with diarrhea for the last few days. According to him his family were tested with Covid positive between his mom and brother and had severe significant exposure the patient lives with his mom. Patient admits to shortness of breath with pleuritic chest pain on and off along with low-grade temperature with no hematemesis slight increased urination mild lower back pain. Patient ended up being diagnosed with Covid 19 infection surprisingly with the severity of dehydration and prerenal patient was in acute anemia injury most likely ATN with chronic kidney disease. Blood sugar was quite bit elevated with elevated A1c. Patient was admitted start on O2 hydration will consult nephro logy and consult infectious disease. 03/28: Patient continues to feel lethargic and tired. He denies any shortness of breath. He has a little diarrhea. No nausea or vomiting. Repeat blood work reveals WBC 4.2, hemoglobin 11, lymphocytes 0.9. Electrolytes normal. BUN 57 creatinine 2.14. Consult in place for nephrology and infectious disease. He is currently on IV fluids at 130 mL/h we'll continue until seen by nephrology. 03/29: Patient required Rosado catheter placement yesterday for urinary retention. The patient was up to the bathroom his pulse ox dropped down to 77% on room air. This morning, he shouldn't denies having any shortness of breath. He is currently pulse oxing 94% on 49 L nasal cannula. His been afebrile, heart rate 87, blood pressure 166/89. D-dimer is 0.46, LDH 596, C-reactive protein 25.9. Pro-calcitonin 0.08. Patient has been evaluated by Dr. Mayberry in to determine if patient candidate for Remdesivir. Due to hypoxia, consult with Dr. Montez was added. Patient was seen by nephrology for acute kidney injury with plan to continue IV fluids REVIEW OF SYSTEMS CONSTITUTIONAL: Well-developed no acute respiratory mildly overweight. Denies fever. Denies chills. EYES: No icterus sclerae, no conjunctivitis. EARS, NOSE, MOUTH, THROAT, and FACE: No sore throat, lymphadenopathy, carotid bruits or deformity. RESPIRATORY: Denies shortness of breath cough. CARDIOVASCULAR: No CP, Palpitation, PND, Orthopnea, or angina. GASTROINTESTINAL: Positive abdominal discomfort with nausea vomiting diarrhea GENITOURINARY: Negative for Hematuria or UTI, no kidney stones. Acute kidney injury INTEGUMENT/BREAST: Negative for any muscular injury with mild osteoarthritis.. HEMATOLOGIC/LYMPHATIC: Negative for bleed or purpura. MUSCULOSKELTAL: Negative for Myalgia or arthralgia. NEURLOGICAL: No LOC, Sz or syncope, blurred vision dizziness or abnormality.. BEHAVIORAL/PSYCH: Negative. ENDOCRINE: Negative. PHYSICAL EXAMINATION General Appearance: Alert, cooperative, no distress, significantly overweight Neck HEENT: Supple, no lymphadenopathy, no thyroid enlargement, no carotid bruits. Lungs: Clear to auscultation without crackles or wheezes no rhonchi, no deformity. Chest Wall: Decrease expansion with deep inspiration no tenderness and no deformity was found on exam, no costochondral pain or discomfort. Heart: Regular rate and rhythm, S1, S2 normal, no murmur, rub or gallop. Back: Symmetric, no curvature, ROM normal, no CVA tenderness. Abdomen: Soft, non-tender, bowel sounds active all four quadrants, no masses, no organomegaly. Rosado catheter draining clear kody urine Extremities: Extremities normal, atraumatic, no cyanosis or edema. Pulses: 2+ and symmetric. Skin: Skin color, texture, tugor normal, no rashes or lesions. Neurologic: Alert oriented x3 cranial nerves II through XII intact, no motor deficit, no abnormal balance or gait. ASSESSMENT AND PLAN 1 Acute Covid 19 infection: Continue supportive care with O2, zinc, vitamin C and vitamin D consult infectious disease appreciated. 2 acute kidney injury. Nephrology consult. Continue IV fluids 3 episode of acute hypoxic respiratory failure. Consult with Dr. Montez. Continue oxygen therapy. 4 type 2 diabetes: We'll resume patient Levemir along with NovoLog, continue Accu-Chek with sliding scales coverage. 5 Hypertension: Patient still running slightly bit low with hypertension still on midodrine 10 mg 3 times a day. 6 hyperlipidemia: Remain on atorvastatin 40 mg daily. 7 chronic depression: Patient remain on Wellbutrin along with Effexor or and Abilify. 8 chronic pain syndrome: Remain on hydrocodone as needed. 9 severe GERD/GI prophylaxis: Remain on omeprazole 20 mg daily . 10 DVT prophylaxis: Patient be on Lovenox 40 mg subcutaneous daily. 11 mild elective slight imbalance: Continue to watch potassium and sodium level. CODE STATUS: Full code. DISCHARGE PLAN Home. Impression and plan of care have been directed as dictated by the signing physician. Melvi Vieyra nurse practitioner acting as scribe for signing physician. Objective - Vital Signs Vital signs: Vital Signs Temp 97.5 F L 03/29/20 09:00 Pulse 90 03/29/20 09:00 Resp 18 03/29/20 09:00 BP 179/93 03/29/20 09:00 Pulse Ox 93 L 03/29/20 09:00 Intake & Output 03/28/20 03/29/20 03/29/20 18:59 06:59 18:59 Intake Total 1440 1080 Output Total 1575 1950 650 Balance -135 -870 -650 Intake: IV 1440 Sodium Chloride 0.9% 1, 1440 000 ml @ 130 mls/hr IV . Q7H42M [facility] Rx#:[id number] Oral 1080 Output: Urine 1575 1950 650 Uretheral (Rosado) 750 650 650 Other: Voiding Method Indwelling Catheter Indwelling Catheter Indwelling Catheter - Labs CBC & Chem 7: 03/28/20 07:19 03/28/20 07:19 Labs: Abnormal Lab Results - Last 24 Hours (Table) 03/28/20 03/28/20 03/28/20 Range/Units 07:19 12:22 14:00 POC Glucose (mg/dL) 160 H (75-99) mg/dL Hemoglobin A1c 8.1 H (4.0-6.0) % C-Reactive Protein (<10.0) mg/L Urine Protein 2+ H (Negative) Urine Blood Trace H (Negative) Hyaline Casts 3 H (0-2) /lpf Urine Mucus Rare H (None) /hpf 03/28/20 03/28/20 03/28/20 Range/Units 17:05 22:01 22:16 POC Glucose (mg/dL) 109 H 63 L 61 L (75-99) mg/dL Hemoglobin A1c (4.0-6.0) % C-Reactive Protein (<10.0) mg/L Urine Protein (Negative) Urine Blood (Negative) Hyaline Casts (0-2) /lpf Urine Mucus (None) /hpf 03/28/20 03/28/20 03/29/20 Range/Units 22:28 22:41 02:39 POC Glucose (mg/dL) 67 L 100 H 169 H (75-99) mg/dL Hemoglobin A1c (4.0-6.0) % C-Reactive Protein (<10.0) mg/L Urine Protein (Negative) Urine Blood (Negative) Hyaline Casts (0-2) /lpf Urine Mucus (None) /hpf 03/29/20 03/29/20 03/29/20 Range/Units 06:24 07:28 11:42 POC Glucose (mg/dL) 164 H 156 H (75-99) mg/dL Hemoglobin A1c (4.0-6.0) % C-Reactive Protein 25.9 H (<10.0) mg/L Urine Protein (Negative) Urine Blood (Negative) Hyaline Casts (0-2) /lpf Urine Mucus (None) /hpf
[2020-03-29 12:21] LABS: Calcium 7.8 mg/dL (8.4-10.2)
[2020-03-29] MEDS: amLODIPine 5 MG TAB PO SCH (13:05)
--- NOTE | 2020-03-29 14:51 | P.CNPUL ---
History of Present Illness Consult date: 03/29/20 Reason for consult: pneumonia History of present illness: 49-year-old white male with past medical history diabetes mellitus type 2, previous history of CVA, nonsmoker, anxiety, depression, who came into the emergency department on 03/27/2020 with a few day history of nausea, vomiting and diarrhea. Patient was not able to tolerate any food or water intake, he states he lives with his mother, he was also diagnosed with COVID 19. Does admit to being short of breath but denied any chest pain, denied any fever or chills, denied any urinary symptoms, his initial chest x-ray showed low lung volumes and chronic changes without any acute infiltrate. Initial evaluation showed evidence of acute kidney injury with the BUN 57, creatinine of 2.46, sodium was 134, potassium is 5.2, d-dimer was 0.47. Troponin was negative at less than 0.012 3, pro calcitonin 0.16, CRP was 29.7, and LDH of 613, urinalysis showed trace blood, 2+ protein, but negative for any sign of infection, COVID 19 was positive 2, on 03/27/2020, started on IV hydration, at 130 ML per hour, he is on IV Decadron, and anticoagulation in the form of Lovenox. Patient is afebrile, he is sent for a half liters of oxygen with a pulse ox of 95%, follow-up chest x-ray showing low lung volumes, patchy bilateral density Review of Systems All systems: negative Constitutional: Reports weakness, Denies chills, Denies fever Eyes: denies blurred vision, denies pain Ears, nose, mouth and throat: Denies headache, Denies sore throat Cardiovascular: Denies chest pain, Denies shortness of breath Respiratory: Reports dyspnea, Denies cough Gastrointestinal: Reports diarrhea, Reports nausea, Reports vomiting, Denies abdominal pain Musculoskeletal: Denies myalgias Integumentary: Denies pruritus, Denies rash Neurological: Denies numbness, Denies weakness Psychiatric: Denies anxiety, Denies depression Endocrine: Denies fatigue, Denies weight change Past Medical History Past Medical History: CVA/TIA, Diabetes Mellitus Additional Past Medical History / Comment(s): neuropathy carpel tunnel borderl ine bipolar History of Any Multi-Drug Resistant Organisms: MRSA Date of last positivie culture/infection: 04/22/16 MDRO Source:: Right Hand Past Surgical History: Orthopedic Surgery Additional Past Surgical History / Comment(s): Colonscopy eye cataract surg. Right hand surgery. Past Anesthesia/Blood Transfusion Reactions: No Reported Reaction Past Psychological History: Anxiety, Bipolar, Depression Smoking Status: Never smoker Past Alcohol Use History: None Reported Additional Past Alcohol Use History / Comment(s): Patient is a lifelong nonsmoke r. He lives with mother Past Drug Use History: None Reported - Past Family History Mother Family Medical History: Diabetes Mellitus Additional Family Medical History / Comment(s): Mother is alive at age 61 with history of diabetes. Patient does not have any contact with his father. Brother(s) Additional Family Medical History / Comment(s): Patient has 2 brothers and one has history of diabetes and one has no major medical problems. Patient does not have any sisters. Patient does not have any children. Medications and Allergies Home Medications Medication Instructions Recorded Confirmed Type Atorvastatin [Lipitor] 40 mg PO HS 09/04/16 03/27/20 History Cyclobenzaprine [Flexeril] 5 mg PO TID PRN 03/13/19 03/27/20 History HYDROcodone/APAP 7.5-325MG [[place] 1 tab PO TID PRN 07/24/19 03/27/20 History 7.5-325] Tamsulosin HCl [Flomax] 0.4 mg PO MOTH 07/24/19 03/27/20 History ARIPiprazole [Abilify] 10 mg PO HS 03/27/20 03/27/20 History INSULIN LISPRO (HumaLOG) [humaLOG] See Protocol SQ AC-TID 03/27/20 03/27/20 History Insulin Detemir [Levemir Flextouch] 30 units SQ HS 03/27/20 03/27/20 History Insulin Detemir [Levemir Flextouch] 40 units SQ DAILY 03/27/20 03/27/20 History Meclizine [Antivert] 25 mg PO TID PRN 03/27/20 03/27/20 History Midodrine HCl [ProAmatine] 10 mg PO TID 03/27/20 03/27/20 History Omeprazole 40 mg PO DAILY 03/27/20 03/27/20 History Potassium Chloride ER [K-Dur 10] 10 meq PO BID 03/27/20 03/27/20 History Venlafaxine HCl [Effexor XR] 225 mg PO DAILY 03/27/20 03/27/20 History buPROPion HCL [Wellbutrin SR] 150 mg PO BID 03/27/20 03/27/20 History lisinopriL [Zestril] 2.5 mg PO DAILY 03/27/20 03/27/20 History Allergies Allergy/AdvReac Type Severity Reaction Status Date / Time lactose AdvReac Nausea & Verified 03/27/20 12:34 Vomiting & Diarrhea Physical Exam Vitals: Vital Signs Temp Pulse Resp BP Pulse Ox 03/29/20 09:00 97.5 F L 90 18 179/93 93 L 03/29/20 08:40 94 L 03/29/20 01:52 98.6 F 87 18 166/89 93 L 03/28/20 21:00 98.3 F 84 18 150/68 95 03/28/20 15:00 16 94 L 03/28/20 14:55 97.7 F 03/28/20 14:54 79 16 141/73 Intake and Output 03/28/20 03/29/20 03/29/20 22:59 06:59 14:59 Intake Total 1080 Output Total 650 1300 650 Balance 430 -1300 -650 Intake: Oral 1080 Output: Urine 650 1300 650 Uretheral (Rosado) 650 650 Other: Voiding Method Indwelling Catheter Indwelling Catheter Indwelling Catheter GENERAL EXAM: Alert, very pleasant, 49-year-old white male, on 4 l of oxygen with a pulse ox of 95%, comfortable in no apparent distress. HEAD: Normocephalic/atraumatic. EYES: Normal reaction of pupils, equal size. Conjunctiva pink, sclera white. NOSE: Clear with pink turbinates. THROAT: No erythema or exudates. NECK: No masses, no JVD, no thyroid enlargement, no adenopathy. CHEST: No chest wall deformity. Symmetrical expansion. LUNGS: Equal air entry with no crackles, wheeze, rhonchi or dullness. CVS: Regular rate and rhythm, normal S1 and S2, no gallops, no murmurs, no rubs ABDOMEN: Soft, nontender. No hepatosplenomegaly, normal bowel sounds, no guarding or rigidity. EXTREMITIES: No clubbing, no edema, no cyanosis, 2+ pulses and upper and lower extremities. MUSCULOSKELETAL: Muscle strength and tone normal. SPINE: No scoliosis or deformity SKIN: No rashes CENTRAL NERVOUS SYSTEM: Alert and oriented -3. No focal deficits, tone is normal in all 4 extremities. PSYCHIATRIC: Alert and oriented -3. Appropriate affect. Intact judgment and insight. Results - Laboratory Findings CBC and BMP: 03/28/20 07:19 03/29/20 07:29 PT/INR, D-dimer PT 9.8 sec (9.0-12.0) 03/27/20 13:26 INR 0.9 (<1.2) 03/27/20 13:26 D-Dimer 0.46 mg/L FEU (<0.60) 03/29/20 07:29 Abnormal lab findings: Abnormal Labs 03/27/20 03/27/20 03/27/20 13:26 13:26 13:26 RBC Hgb Hct 38.8 L Lymphocytes # Sodium 134 L Potassium 5.2 H Chloride Carbon Dioxide BUN 57 H Creatinine 2.46 H Glucose 234 H POC Glucose (mg/dL) Hemoglobin A1c Calcium Ferritin 483.2 H C-Reactive Protein 29.7 H Procalcitonin 0.16 H Urine Protein Urine Blood Hyaline Casts Urine Mucus Coronavirus (PCR) 03/27/20 03/27/20 03/27/20 14:00 16:48 21:43 RBC Hgb Hct Lymphocytes # Sodium Potassium Chloride Carbon Dioxide BUN Creatinine Glucose POC Glucose (mg/dL) 155 H Hemoglobin A1c Calcium Ferritin C-Reactive Protein Procalcitonin Urine Protein Urine Blood Hyaline Casts Urine Mucus Coronavirus (PCR) Detected A Detected A 03/27/20 03/28/20 03/28/20 23:58 06:45 07:19 RBC 4.00 L Hgb 11.0 L Hct 32.3 L Lymphocytes # 0.9 L Sodium Potassium Chloride Carbon Dioxide BUN Creatinine Glucose POC Glucose (mg/dL) 168 H 142 H Hemoglobin A1c Calcium Ferritin C-Reactive Protein Procalcitonin Urine Protein Urine Blood Hyaline Casts Urine Mucus Coronavirus (PCR) 03/28/20 03/28/20 03/28/20 07:19 07:19 12:22 RBC Hgb Hct Lymphocytes # Sodium Potassium Chloride Carbon Dioxide BUN 57 H Creatinine 2.14 H Glucose 145 H POC Glucose (mg/dL) 160 H Hemoglobin A1c 8.1 H Calcium 7.9 L Ferritin C-Reactive Protein Procalcitonin Urine Protein Urine Blood Hyaline Casts Urine Mucus Coronavirus (PCR) 03/28/20 03/28/20 03/28/20 14:00 17:05 22:01 RBC Hgb Hct Lymphocytes # Sodium Potassium Chloride Carbon Dioxide BUN Creatinine Glucose POC Glucose (mg/dL) 109 H 63 L Hemoglobin A1c Calcium Ferritin C-Reactive Protein Procalcitonin Urine Protein 2+ H Urine Blood Trace H Hyaline Casts 3 H Urine Mucus Rare H Coronavirus (PCR) 03/28/20 03/28/20 03/28/20 22:16 22:28 22:41 RBC Hgb Hct Lymphocytes # Sodium Potassium Chloride Carbon Dioxide BUN Creatinine Glucose POC Glucose (mg/dL) 61 L 67 L 100 H Hemoglobin A1c Calcium Ferritin C-Reactive Protein Procalcitonin Urine Protein Urine Blood Hyaline Casts Urine Mucus Coronavirus (PCR) 03/29/20 03/29/20 03/29/20 02:39 06:24 07:28 RBC Hgb Hct Lymphocytes # Sodium Potassium Chloride Carbon Dioxide BUN Creatinine Glucose POC Glucose (mg/dL) 169 H 164 H Hemoglobin A1c Calcium Ferritin C-Reactive Protein 25.9 H Procalcitonin Urine Protein Urine Blood Hyaline Casts Urine Mucus Coronavirus (PCR) 03/29/20 03/29/20 07:29 11:42 RBC Hgb Hct Lymphocytes # Sodium Potassium Chloride 111 H Carbon Dioxide 20 L BUN 36 H Creatinine 1.50 H Glucose 175 H POC Glucose (mg/dL) 156 H Hemoglobin A1c Calcium 7.8 L Ferritin C-Reactive Protein Procalcitonin Urine Protein Urine Blood Hyaline Casts Urine Mucus Coronavirus (PCR) - Diagnostic Findings Chest x-ray: report reviewed, image reviewed Assessment and Plan Plan: Assessment: #1. Acute hypoxic respiratory failure related to COVID 19 pneumonia #2. Intractable nausea vomiting and diarrhea #3. Acute kidney injury related to dehydration, improving with hydration #4. Previous history of CVA #5. Diabetes mellitus type 2 #6. Anxiety #7. Depression #8. Chronic kidney disease stage III Plan: Continue Decadron, continue anticoagulation, we will add Remdesivir, continue IV hydration, renal profile is improving, nephrology is following. We'll continue to follow febrile pattern, oxygenation pattern. I performed a history & physical examination of the patient and discussed their management with my nurse practitioner, Teresa Maya. I reviewed the nurse practitioner's note and agree with the documented findings and plan of care. Lung sounds are positive for diminished breath sounds. The findings and the impression was discussed with the patient. I attest to the documentation by the nurse practitioner. Time with Patient: Greater than 30
[2020-03-29] MEDS ORDERED: REMDESIVIR 200 MG in SODIUM CHLORIDE 0.9% 250 ML IVPB ONE (15:00)
[2020-03-29] MEDS: ATORVASTATIN 40 MG TAB PO SCH (20:35)
[2020-03-29] MEDS: ARIPiprazole 10 MG TAB PO SCH (20:35)
[2020-03-29 20:53] LABS: Glucose,Whole Blood 207 mg/dL (75-99)
--- NOTE | 2020-03-29 22:34 | PN ---
PROGRESS NOTE DATE OF SERVICE: 03/29/2020 REASON FOR FOLLOWUP: Acute COVID-19 infection. INTERVAL HISTORY: The patient overnight did have hypoxemia requiring supplemental oxygen, currently on 4.5 L nasal cannula. The patient himself denies having any chest pain or shortness of breath. Minimal cough. No further vomiting or diarrhea. PHYSICAL EXAMINATION: Blood pressure 189/75 with a pulse of 92, temperature 98.2. He is 93% on 4.5 L nasal cannula. General description is a middle-aged male lying in bed in no distress. RESPIRATORY SYSTEM: Unlabored breathing with decreased intensity of breath sounds. No wheeze. HEART: S1, S2. Regular rate and rhythm. ABDOMEN: Soft. No tenderness. LABS: BUN of 36, creatinine 1.50, 0.08. CRP is down to 25.9. DIAGNOSTIC IMPRESSION AND PLAN: Patient admitted to hospital with acute nausea, vomiting, diarrhea with acute kidney injury and also with COVID positive testing. Initially patient was not hypoxemic; however, overnight the patient did have hypoxemia. Chest x-ray with pneumonia. Remdesivir has been added to the current treatment regimen of dexamethasone, Lovenox and zinc sulfate; to continue and monitor clinical course closely. MMODL / IJN: [id number] /
[2020-03-30] MEDS: SODIUM CHLORIDE 0.9% 1,000 ML IV SCH ×3 (05:14→22:19)
[2020-03-30] MEDS: PANTOPRAZOLE 40 MG TABLET PO SCH (06:14)
[2020-03-30] MEDS: INSULIN DETEMIR (LEVEMIR) 100 UNIT/ML SYR SQ SCH ×2 (06:14→22:17)
[2020-03-30 06:19] LABS: Glucose,Whole Blood 135 mg/dL (75-99)
[2020-03-30] MEDS: MIDODRINE 5 MG TAB PO SCH ×2 (06:44→10:30)
[2020-03-30 08:25] LABS: Calcium 8.1 mg/dL (8.4-10.2); Potassium 4.5 mmol/L (3.5-5.1)
--- NOTE | 2020-03-30 09:26 | P.PN ---
Subjective Progress Note Date: 03/30/20 49-year-old white male with past medical history diabetes mellitus type 2, previous history of CVA, nonsmoker, anxiety, depression, who came into the emergency department on 03/27/2020 with a few day history of nausea, vomiting and diarrhea. Patient was not able to tolerate any food or water intake, he states he lives with his mother, he was also diagnosed with COVID 19. Does admit to being short of breath but denied any chest pain, denied any fever or chills, denied any urinary symptoms, his initial chest x-ray showed low lung volumes and chronic changes without any acute infiltrate. Initial evaluation showed evidence of acute kidney injury with the BUN 57, creatinine of 2.46, sodium was 134, potassium is 5.2, d-dimer was 0.47. Troponin was negative at less than 0.012 3, pro calcitonin 0.16, CRP was 29.7, and LDH of 613, urinalysis showed trace blood, 2+ protein, but negative for any sign of infection, COVID 19 was positive 2, on 03/27/2020, started on IV hydration, at 130 ML per hour, he is on IV Decadron, and anticoagulation in the form of Lovenox. Patient is afebrile, he is sent for a half liters of oxygen with a pulse ox of 95%, follow-up chest x-ray showing low lung volumes, patchy bilateral density On today's evaluation. 2019, the patient is feeling okay. He is less short of breath compared to yesterday. He is on 4.5 L of oxygen by nasal cannula.She is currently on a combination of Remdesivir and Decadron. Overall, doing well. He did have a urinary he has a Rosado catheter in place and the patient's creatinine is down to 1.3. No fever. No chills. No other specific complaints. He is spending most of his time in bed is not doing a lot of activity. Objective - Vital Signs Vital signs: Vital Signs Temp 97.6 F 03/30/20 08:38 Pulse 84 03/30/20 08:38 Resp 18 03/30/20 08:38 BP 155/90 03/30/20 08:38 Pulse Ox 91 L 03/30/20 08:38 Intake & Output 03/29/20 03/30/20 03/30/20 18:59 06:59 18:59 Intake Total 1170 Output Total 1300 3500 Balance -130 -3500 Intake: Intake, IV Titration 1170 Amount Sodium Chloride 0.9% 1, 1170 000 ml @ 130 mls/hr IV . Q7H42M [facility] Rx#:[id number] Output: Urine 1300 3500 Uretheral (Rosado) 1300 1000 Other: Voiding Method Indwelling Catheter Indwelling Catheter - Exam GENERAL EXAM: Alert, very pleasant, 49-year-old white male, on 4 l of oxygen with a pulse ox of 95%, comfortable in no apparent distress. HEAD: Normocephalic/atraumatic. EYES: Normal reaction of pupils, equal size. Conjunctiva pink, sclera white. NOSE: Clear with pink turbinates. THROAT: No erythema or exudates. NECK: No masses, no JVD, no thyroid enlargement, no adenopathy. CHEST: No chest wall deformity. Symmetrical expansion. LUNGS: Equal air entry with no crackles, wheeze, rhonchi or dullness. CVS: Regular rate and rhythm, normal S1 and S2, no gallops, no murmurs, no rubs ABDOMEN: Soft, nontender. No hepatosplenomegaly, normal bowel sounds, no guarding or rigidity. EXTREMITIES: No clubbing, no edema, no cyanosis, 2+ pulses and upper and lower extremities. MUSCULOSKELETAL: Muscle strength and tone normal. SPINE: No scoliosis or deformity SKIN: No rashes CENTRAL NERVOUS SYSTEM: Alert and oriented -3. No focal deficits, tone is normal in all 4 extremities. PSYCHIATRIC: Alert and oriented -3. Appropriate affect. Intact judgment and insight. - Labs CBC & Chem 7: 03/28/20 07:19 03/30/20 07:52 Labs: Abnormal Lab Results - Last 24 Hours (Table) 03/29/20 03/29/20 03/29/20 Range/Units 07:28 07:29 11:42 Chloride 111 H (98-107) mmol/L Carbon Dioxide 20 L (22-30) mmol/L BUN 36 H (9-20) mg/dL Creatinine 1.50 H (0.66-1.25) mg/dL Glucose 175 H (74-99) mg/dL POC Glucose (mg/dL) 156 H (75-99) mg/dL Calcium 7.8 L (8.4-10.2) mg/dL C-Reactive Protein 25.9 H (<10.0) mg/L 03/29/20 03/30/20 03/30/20 Range/Units 20:50 06:14 07:52 Chloride 111 H (98-107) mmol/L Carbon Dioxide (22-30) mmol/L BUN 29 H (9-20) mg/dL Creatinine 1.32 H (0.66-1.25) mg/dL Glucose 117 H (74-99) mg/dL POC Glucose (mg/dL) 207 H 135 H (75-99) mg/dL Calcium 8.1 L (8.4-10.2) mg/dL C-Reactive Protein (<10.0) mg/L Assessment and Plan Plan: #1. Acute hypoxic respiratory failure related to COVID 19 pneumonia #2. Intractable nausea vomiting and diarrhea #3. Acute kidney injury related to dehydration, improving with hydration #4. Previous history of CVA #5. Diabetes mellitus type 2 #6. Anxiety #7. Depression #8. Chronic kidney disease stage III Plan Continue same treatment remove Rosado catheter Monitor renal function Clinically improving. We'll continue to follow. Possible discharge in the next 24-48 hours.
--- NOTE | 2020-03-30 10:15 | P.PN ---
Subjective Progress Note Date: 03/30/20 HISTORY OF PRESENT ILLNESS 49-year-old male with history of mild obesity, hypertension and hyperlipidemia was seen the demurs department because of worsening symptom of nausea and v omiting along with diarrhea for the last few days. According to him his family were tested with Covid positive between his mom and brother and had severe significant exposure the patient lives with his mom. Patient admits to shortness of breath with pleuritic chest pain on and off along with low-grade temperature with no hematemesis slight increased urination mild lower back pain. Patient ended up being diagnosed with Covid 19 infection surprisingly with the severity of dehydration and prerenal patient was in acute anemia injury most likely ATN with chronic kidney disease. Blood sugar was quite bit elevated with elevated A1c. Patient was admitted start on O2 hydration will consult nephro logy and consult infectious disease. 03/28: Patient continues to feel lethargic and tired. He denies any shortness of breath. He has a little diarrhea. No nausea or vomiting. Repeat blood work reveals WBC 4.2, hemoglobin 11, lymphocytes 0.9. Electrolytes normal. BUN 57 creatinine 2.14. Consult in place for nephrology and infectious disease. He is currently on IV fluids at 130 mL/h we'll continue until seen by nephrology. 03/29: Patient required Rosado catheter placement yesterday for urinary retention. The patient was up to the bathroom his pulse ox dropped down to 77% on room air. This morning, he shouldn't denies having any shortness of breath. He is currently pulse oxing 94% on 49 L nasal cannula. His been afebrile, heart rate 87, blood pressure 166/89. D-dimer is 0.46, LDH 596, C-reactive protein 25.9. Pro-calcitonin 0.08. Patient has been evaluated by Dr. Mayberry in to determine if patient candidate for Remdesivir. Due to hypoxia, consult with Dr. Montez was added. Patient was seen by nephrology for acute kidney injury with plan to continue IV fluids 03/30: Patient was started on Remdesivir yesterday. He is currently pulse oxing 92% on 4 L. He has a Rosado catheter in place and we will plan to remove this today, he is on Flomax 2 days a week which will be increased to daily. Patient states he is ambulated to the bathroom and after that. He has been afebrile, heart rate 84, blood pressure 155/90. Patient is reaching 1500 on incentive spirometry. Patient encouraged to get out of bed increase activity. Repeat blood work reveals improve renal function with BUN of 29 and creatinine 1.32. REVIEW OF SYSTEMS CONSTITUTIONAL: Well-developed no acute respiratory mildly overweight. Denies fever. Denies chills. EYES: No icterus sclerae, no conjunctivitis. EARS, NOSE, MOUTH, THROAT, and FACE: No sore throat, lymphadenopathy, carotid bruits or deformity. RESPIRATORY: Reports dyspnea with exertion, reports shortness of breath cough. CARDIOVASCULAR: No CP, Palpitation, PND, Orthopnea, or angina. GASTROINTESTINAL: Positive abdominal discomfort with nausea vomiting diarrhea GENITOURINARY: Negative for Hematuria or UTI, no kidney stones. Acute kidney injury INTEGUMENT/BREAST: Negative for any muscular injury with mild osteoarthritis.. HEMATOLOGIC/LYMPHATIC: Negative for bleed or purpura. MUSCULOSKELTAL: Negative for Myalgia or arthralgia. NEURLOGICAL: No LOC, Sz or syncope, blurred vision dizziness or abnormality.. BEHAVIORAL/PSYCH: Negative. ENDOCRINE: Negative. PHYSICAL EXAMINATION General Appearance: Alert, cooperative, no distress, obese 49-year-old male. He appears to be in no acute respiratory distress. Neck HEENT: Supple, no lymphadenopathy, no thyroid enlargement, no carotid bruits. Lungs: Clear to auscultation without crackles or wheezes no rhonchi, no deform ity. Chest Wall: Decrease expansion with deep inspiration no tenderness and no deformity was found on exam, no costochondral pain or discomfort. Heart: Regular rate and rhythm, S1, S2 normal, no murmur, rub or gallop. Back: Symmetric, no curvature, ROM normal, no CVA tenderness. Abdomen: Soft, non-tender, bowel sounds active all four quadrants, no masses, no organomegaly. Rosado catheter draining clear kody urine Extremities: Extremities normal, atraumatic, no cyanosis or edema. Pulses: 2+ and symmetric. Skin: Skin color, texture, tugor normal, no rashes or lesions. Neurologic: Alert oriented x3 cranial nerves II through XII intact, no motor deficit, no abnormal balance or gait. ASSESSMENT AND PLAN 1 Acute Covid 19 infection: Continue supportive care with O2, zinc, vitamin C and vitamin D consult infectious disease appreciated. Consult with pulmonary medicine appreciated. #05/26. 2 acute kidney injury. Nephrology consult. Continue IV fluids 3 episode of acute hypoxic respiratory failure. Consult with Dr. Montez. Continue oxygen therapy. 4 type 2 diabetes: We'll resume patient Levemir along with NovoLog, continue Accu-Chek with sliding scales coverage. 5 Hypertension: Patient still running slightly bit low with hypertension still on midodrine 10 mg 3 times a day. 6 hyperlipidemia: Remain on atorvastatin 40 mg daily. 7 recurrent depression: Patient remain on Wellbutrin along with Effexor or and Abilify. 8 chronic pain syndrome: Remain on hydrocodone as needed. 9 severe GERD/GI prophylaxis: Remain on omeprazole 20 mg daily . 10 DVT prophylaxis: Patient be on Lovenox 40 mg subcutaneous daily. 11 mild hyperkalemia, hyponatremia CODE STATUS: Full code. DISCHARGE PLAN Home. Impression and plan of care have been directed as dictated by the signing physician. Melvi Vieyra nurse practitioner acting as scribe for signing physician. Objective - Vital Signs Vital signs: Vital Signs Temp 97.6 F 03/30/20 08:38 Pulse 84 03/30/20 08:38 Resp 18 03/30/20 08:38 BP 155/90 03/30/20 08:38 Pulse Ox 91 L 03/30/20 08:38 Intake & Output 03/29/20 03/30/20 03/30/20 18:59 06:59 18:59 Intake Total 1170 Output Total 1300 3500 Balance -130 -3500 Intake: Intake, IV Titration 1170 Amount Sodium Chloride 0.9% 1, 1170 000 ml @ 130 mls/hr IV . Q7H42M [facility] Rx#:[id number] Output: Urine 1300 3500 Uretheral (Orsado) 1300 1000 Other: Voiding Method Indwelling Catheter Indwelling Catheter - Labs CBC & Chem 7: 03/28/20 07:19 03/30/20 07:52 Labs: Abnormal Lab Results - Last 24 Hours (Table) 03/29/20 03/29/20 03/29/20 Range/Units 07:28 07:29 11:42 Chloride 111 H (98-107) mmol/L Carbon Dioxide 20 L (22-30) mmol/L BUN 36 H (9-20) mg/dL Creatinine 1.50 H (0.66-1.25) mg/dL Glucose 175 H (74-99) mg/dL POC Glucose (mg/dL) 156 H (75-99) mg/dL Calcium 7.8 L (8.4-10.2) mg/dL C-Reactive Protein 25.9 H (<10.0) mg/L 03/29/20 03/30/20 03/30/20 Range/Units 20:50 06:14 07:52 Chloride 111 H (98-107) mmol/L Carbon Dioxide (22-30) mmol/L BUN 29 H (9-20) mg/dL Creatinine 1.32 H (0.66-1.25) mg/dL Glucose 117 H (74-99) mg/dL POC Glucose (mg/dL) 207 H 135 H (75-99) mg/dL Calcium 8.1 L (8.4-10.2) mg/dL C-Reactive Protein (<10.0) mg/L
[2020-03-30] MEDS: ZINC SULFATE 220 MG CAP PO SCH (10:28)
[2020-03-30] MEDS: ENOXAPARIN 40 MG/0.4 ML SYRINGE SQ SCH (10:28)
[2020-03-30] MEDS: amLODIPine 5 MG TAB PO SCH (10:28)
[2020-03-30] MEDS: DEXAMETHASONE SOD PHOSPHATE 10 MG/ML 1 ML VIAL IV SCH (10:28)
[2020-03-30] MEDS: VENLAFAXINE HCL ER 75 MG CAP PO SCH (10:29)
[2020-03-30] MEDS: buPROPion SR 150 MG TABLET.ER PO SCH ×2 (10:29→22:17)
[2020-03-30 11:14] LABS: Glucose,Whole Blood 94 mg/dL (75-99)
--- NOTE | 2020-03-30 14:43 | PN ---
PROGRESS NOTE Patient is seen for followup for acute kidney injury. He was admitted with COVID-19 infection/pneumonia. His renal function has improved. Patient is maintained on IV fluids. Serum creatinine has improved from 2.46-1.32 today. Overall, patient states he is feeling better. He is awake. He is has been eating better. He has had good urine output. PHYSICAL EXAMINATION: Blood pressure is 155/90, heart rate 84 per minute, he is afebrile. Examination shows no evidence of edema lower extremities. Abdomen is soft, nontender. 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 LABS: Show sodium 138, potassium 4.5, chloride 111. CO2 is 25, BUN 29, creatinine 1.32. ASSESSMENT: 1. Acute kidney injury, prerenal and associated with underlying comorbid infection, currently improved. 2. COVID-19 infection with pneumonia noticed on chest x-ray, being followed by Pulmonary currently improving, patient is maintained on steroids. He also received Remdesivir. 3. Hypotension, currently maintained on midodrine. I do not see a cortisol level, which I will order. 4. Chronic kidney disease stage 3. Previous creatinine 1.7-1.8 in July and April of 2019. Etiology is diabetic kidney disease. We can resume TALITA inhibitors down the road if blood pressure allows. 5. Mild hyperkalemia, currently improved. PLAN: DC midodrine as blood pressure is high. Continue with IV fluids for one more day. Patient can be discharged from nephrology standpoint if cleared by Pulmonary and ID. He will need to follow up as outpatient for CKD. MMODL / IJN: [id number] /
[2020-03-30] MEDS: REMDESIVIR 100 MG in SODIUM CHLORIDE 0.9% 250 ML IVPB SCH (15:03)
[2020-03-30 17:10] LABS: Glucose,Whole Blood 80 mg/dL (75-99)
--- NOTE | 2020-03-30 20:50 | PN ---
PROGRESS NOTE DATE OF SERVICE: 03/30/2020 REASON FOR FOLLOWUP: COVID-19 infection. INTERVAL HISTORY: The patient is currently afebrile. The patient is breathing comfortably. He denies having any chest pain. Minimal cough. No further nausea, vomiting or diarrhea. PHYSICAL EXAMINATION: Blood pressure 151/91 with a pulse of 86, temperature 97.5. He is 92% on 2 L nasal cannula. General description is a middle-aged male lying in bed in no distress. RESPIRATORY SYSTEM: Unlabored breathing. Clear to auscultation anteriorly. HEART: S1, S2. Regular rate and rhythm. ABDOMEN: Soft. No tenderness. LABS: BUN of 9, creatinine is 1.32. DIAGNOSTIC IMPRESSION AND PLAN: Patient admitted to hospital with acute nausea, vomiting and diarrhea with evidence of acute kidney injury; also positive for COVID in this patient who subsequently had hypoxemia and was started on remdesivir. The patient seems to have shown clinical improvement. Continue with the dexamethasone, Lovenox and remdesivir along with supportive care. MMODL / IJN: [id number] /
[2020-03-30] MEDS: ATORVASTATIN 40 MG TAB PO SCH (22:17)
[2020-03-30] MEDS: ARIPiprazole 10 MG TAB PO SCH (22:17)
[2020-03-30 22:25] LABS: Glucose,Whole Blood 119 mg/dL (75-99)
[2020-03-31] MEDS: SODIUM CHLORIDE 0.9% 1,000 ML IV SCH (05:19)
[2020-03-31] MEDS: PANTOPRAZOLE 40 MG TABLET PO SCH (07:27)
[2020-03-31 07:28] LABS: Glucose,Whole Blood 74 mg/dL (75-99)
[2020-03-31 08:18] LABS: Calcium 8.1 mg/dL (8.4-10.2); Potassium 4.3 mmol/L (3.5-5.1)
[2020-03-31] MEDS: INSULIN DETEMIR (LEVEMIR) 100 UNIT/ML SYR SQ SCH (09:26)
[2020-03-31] MEDS: amLODIPine 5 MG TAB PO SCH (09:33)
[2020-03-31] MEDS: ZINC SULFATE 220 MG CAP PO SCH (09:33)
[2020-03-31] MEDS: TAMSULOSIN 0.4 MG CAP.ER.24H PO SCH (09:37)
[2020-03-31] MEDS: VENLAFAXINE HCL ER 75 MG CAP PO SCH (09:37)
[2020-03-31] MEDS: ENOXAPARIN 40 MG/0.4 ML SYRINGE SQ SCH (09:37)
[2020-03-31] MEDS: buPROPion SR 150 MG TABLET.ER PO SCH (09:38)
[2020-03-31] MEDS: DEXAMETHASONE SOD PHOSPHATE 10 MG/ML 1 ML VIAL IV SCH (09:38)
[2020-03-31] MEDS ORDERED: amLODIPine 5 MG TAB PO STA (09:44)
[2020-03-31 12:03] LABS: Glucose,Whole Blood 108 mg/dL (75-99)
--- NOTE | 2020-03-31 12:27 | P.PN ---
Subjective Progress Note Date: 03/31/20 49-year-old white male with past medical history diabetes mellitus type 2, previous history of CVA, nonsmoker, anxiety, depression, who came into the emergency department on 03/27/2020 with a few day history of nausea, vomiting and diarrhea. Patient was not able to tolerate any food or water intake, he states he lives with his mother, he was also diagnosed with COVID 19. Does admit to being short of breath but denied any chest pain, denied any fever or chills, denied any urinary symptoms, his initial chest x-ray showed low lung volumes and chronic changes without any acute infiltrate. Initial evaluation showed evidence of acute kidney injury with the BUN 57, creatinine of 2.46, sodium was 134, potassium is 5.2, d-dimer was 0.47. Troponin was negative at less than 0.012 3, pro calcitonin 0.16, CRP was 29.7, and LDH of 613, urinalysis showed trace blood, 2+ protein, but negative for any sign of infection, COVID 19 was positive 2, on 03/27/2020, started on IV hydration, at 130 ML per hour, he is on IV Decadron, and anticoagulation in the form of Lovenox. Patient is afebrile, he is sent for a half liters of oxygen with a pulse ox of 95%, follow-up chest x-ray showing low lung volumes, patchy bilateral density On today's evaluation. 2019, the patient is feeling okay. He is less short of breath compared to yesterday. He is on 4.5 L of oxygen by nasal cannula.She is currently on a combination of Remdesivir and Decadron. Overall, doing well. He did have a urinary he has a Rosado catheter in place and the patient's creatinine is down to 1.3. No fever. No chills. No other specific complaints. He is spending most of his time in bed is not doing a lot of activity. On today's evaluation of 03/31/2020, the patient is doing better. On the right oxygen the patient's pulse ox is up to 91%. No respiratory difficulties. No costovertebral production chest vessel wheezing. He has improved considerably since yesterday. His more active conversing and responding. No nausea. No vomiting. No diarrhea. No fever. No chills. Blood work shows normal electrolytes. Creatinine is at 1.16. Objective - Vital Signs Vital signs: Vital Signs Temp 98.1 F 03/31/20 09:00 Pulse 74 03/31/20 09:00 Resp 18 03/31/20 09:00 BP 164/93 03/31/20 09:00 Pulse Ox 94 L 03/31/20 09:00 Intake & Output 03/30/20 03/31/20 03/31/20 18:59 06:59 18:59 Intake Total 1280 360 Output Total 2075 1000 1600 Balance -795 -1000 -1240 Intake: IV 1040 Sodium Chloride 0.9% 1, 1040 000 ml @ 130 mls/hr IV . Q7H42M [facility] Rx#:[id number] Oral 240 360 Output: Urine 5 1000 1600 Uretheral (Rosado) 700 1600 Other: Voiding Method Indwelling Catheter Indwelling Catheter Indwelling Catheter # Voids 1 - Exam GENERAL EXAM: Alert, very pleasant, 49-year-old white male, on 4 l of oxygen with a pulse ox of 95%, comfortable in no apparent distress. The patient has been weaned off and the patient is currently on room air oxygen. HEAD: Normocephalic/atraumatic. EYES: Normal reaction of pupils, equal size. Conjunctiva pink, sclera white. NOSE: Clear with pink turbinates. THROAT: No erythema or exudates. NECK: No masses, no JVD, no thyroid enlargement, no adenopathy. CHEST: No chest wall deformity. Symmetrical expansion. LUNGS: Equal air entry with no crackles, wheeze, rhonchi or dullness. CVS: Regular rate and rhythm, normal S1 and S2, no gallops, no murmurs, no rubs ABDOMEN: Soft, nontender. No hepatosplenomegaly, normal bowel sounds, no guarding or rigidity. EXTREMITIES: No clubbing, no edema, no cyanosis, 2+ pulses and upper and lower extremities. MUSCULOSKELETAL: Muscle strength and tone normal. SPINE: No scoliosis or deformity SKIN: No rashes CENTRAL NERVOUS SYSTEM: Alert and oriented -3. No focal deficits, tone is normal in all 4 extremities. PSYCHIATRIC: Alert and oriented -3. Appropriate affect. Intact judgment and insight. - Labs CBC & Chem 7: 03/28/20 07:19 03/31/20 07:46 Labs: Abnormal Lab Results - Last 24 Hours (Table) 03/30/20 03/31/20 03/31/20 Range/Units 22:16 07:27 07:46 Chloride 109 H (98-107) mmol/L BUN 26 H (9-20) mg/dL POC Glucose (mg/dL) 119 H 74 L (75-99) mg/dL Calcium 8.1 L (8.4-10.2) mg/dL 03/31/20 Range/Units 12:02 Chloride (98-107) mmol/L BUN (9-20) mg/dL POC Glucose (mg/dL) 108 H (75-99) mg/dL Calcium (8.4-10.2) mg/dL Assessment and Plan Plan: #1. Acute hypoxic respiratory failure related to COVID 19 pneumonia , Clinically improving and currently he is somewhere between room air oxygen few liters #2. Intractable nausea vomiting and diarrhea #3. Acute kidney injury related to dehydration, improving with hydration #4. Previous history of CVA #5. Diabetes mellitus type 2 #6. Anxiety #7. Depression #8. Chronic kidney disease stage III Plan We'll titrate down the FiO2 Continue same treatment As the patient's creatinine is improving. Monitor renal function Clinically improving. We'll continue to follow. Possible discharge in the next 24-48 hours.
--- NOTE | 2020-03-31 14:35 | P.PN ---
Subjective Progress Note Date: 03/31/20 HISTORY OF PRESENT ILLNESS 49-year-old male with history of mild obesity, hypertension and hyperlipidemia was seen the demurs department because of worsening symptom of nausea and v omiting along with diarrhea for the last few days. According to him his family were tested with Covid positive between his mom and brother and had severe significant exposure the patient lives with his mom. Patient admits to shortness of breath with pleuritic chest pain on and off along with low-grade temperature with no hematemesis slight increased urination mild lower back pain. Patient ended up being diagnosed with Covid 19 infection surprisingly with the severity of dehydration and prerenal patient was in acute anemia injury most likely ATN with chronic kidney disease. Blood sugar was quite bit elevated with elevated A1c. Patient was admitted start on O2 hydration will consult nephro logy and consult infectious disease. 03/28: Patient continues to feel lethargic and tired. He denies any shortness of breath. He has a little diarrhea. No nausea or vomiting. Repeat blood work reveals WBC 4.2, hemoglobin 11, lymphocytes 0.9. Electrolytes normal. BUN 57 creatinine 2.14. Consult in place for nephrology and infectious disease. He is currently on IV fluids at 130 mL/h we'll continue until seen by nephrology. 03/29: Patient required Rosado catheter placement yesterday for urinary retention. The patient was up to the bathroom his pulse ox dropped down to 77% on room air. This morning, he shouldn't denies having any shortness of breath. He is currently pulse oxing 94% on 49 L nasal cannula. His been afebrile, heart rate 87, blood pressure 166/89. D-dimer is 0.46, LDH 596, C-reactive protein 25.9. Pro-calcitonin 0.08. Patient has been evaluated by Dr. Mayberry in to determine if patient candidate for Remdesivir. Due to hypoxia, consult with Dr. Montez was added. Patient was seen by nephrology for acute kidney injury with plan to continue IV fluids 03/30: Patient was started on Remdesivir yesterday. He is currently pulse oxing 92% on 4 L. He has a Rosado catheter in place and we will plan to remove this today, he is on Flomax 2 days a week which will be increased to daily. Patient states he is ambulated to the bathroom and after that. He has been afebrile, heart rate 84, blood pressure 155/90. Patient is reaching 1500 on incentive spirometry. Patient encouraged to get out of bed increase activity. Repeat blood work reveals improve renal function with BUN of 29 and creatinine 1.32. 03/31: Patient is seen today on the observation unit, in bed. Patient has not been out of bed this morning. We'll plan to discontinue Rosado catheter and patient encouraged to ambulate and move. He is currently pulse oxing 95% on 4 L, afebrile, heart rate 82, blood pressure 166/94. Amlodipine will be increased to 10 mg daily. He is currently on Remdesivir day #3/5. IV fluids will be discontinued and saline locked. Electrolytes are normal, BUN 26 and creatinine 1.16. REVIEW OF SYSTEMS CONSTITUTIONAL: Well-developed no acute respiratory mildly overweight. Denies fever. Denies chills. Reports lethargy. EYES: No icterus sclerae, no conjunctivitis. EARS, NOSE, MOUTH, THROAT, and FACE: No sore throat, lymphadenopathy, carotid bruits or deformity. RESPIRATORY: Reports dyspnea with exertion, reports shortness of breath cough. CARDIOVASCULAR: No CP, Palpitation, PND, Orthopnea, or angina. GASTROINTESTINAL: Positive abdominal discomfort with nausea vomiting diarrhea GENITOURINARY: Negative for Hematuria or UTI, no kidney stones. Acute kidney injury INTEGUMENT/BREAST: Negative for any muscular injury with mild osteoarthritis.. HEMATOLOGIC/LYMPHATIC: Negative for bleed or purpura. MUSCULOSKELTAL: Negative for Myalgia or arthralgia. NEURLOGICAL: No LOC, Sz or syncope, blurred vision dizziness or abnormality.. BEHAVIORAL/PSYCH: Negative. ENDOCRINE: Negative. PHYSICAL EXAMINATION General Appearance: Alert, cooperative, no distress, obese 49-year-old male. He appears to be in no acute respiratory distress. Neck HEENT: Supple, no lymphadenopathy, no thyroid enlargement, no carotid bruits. Lungs: Clear to auscultation without crackles or wheezes no rhonchi, no deformity. Chest Wall: Decrease expansion with deep inspiration no tenderness and no deformity was found on exam, no costochondral pain or discomfort. Heart: Regular rate and rhythm, S1, S2 normal, no murmur, rub or gallop. Back: Symmetric, no curvature, ROM normal, no CVA tenderness. Abdomen: Soft, non-tender, bowel sounds active all four quadrants, no masses, no organomegaly. Rosado catheter draining clear kody urine Extremities: Extremities normal, atraumatic, no cyanosis or edema. Pulses: 2+ and symmetric. Skin: Skin color, texture, tugor normal, no rashes or lesions. Neurologic: Alert oriented x3 cranial nerves II through XII intact, no motor deficit, no abnormal balance or gait. ASSESSMENT AND PLAN 1 Acute Covid 19 infection: Continue supportive care with O2, zinc, vitamin C and vitamin D consult infectious disease appreciated. Consult with pulmonary medicine appreciated. Remdesivir day #06/23. 2 acute kidney injury, resolved. Nephrology consult. Continue IV fluids 3 episode of acute hypoxic respiratory failure. Consult with Dr. Montez. Continue oxygen therapy. 4 type 2 diabetes: We'll resume patient Levemir along with NovoLog, continue Accu-Chek with sliding scales coverage. 5 Hypertension: Patient still running slightly bit low with hypertension still on midodrine 10 mg 3 times a day. 6 hyperlipidemia: Remain on atorvastatin 40 mg daily. 7 recurrent depression: Patient remain on Wellbutrin along with Effexor or and Abilify. 8 chronic pain syndrome: Remain on hydrocodone as needed. 9 severe GERD/GI prophylaxis: Remain on omeprazole 20 mg daily . 10 DVT prophylaxis: Patient be on Lovenox 40 mg subcutaneous daily. 11 mild hyperkalemia, hyponatremia 12 chronic kidney disease stage II CODE STATUS: Full code. DISCHARGE PLAN Home. Impression and plan of care have been directed as dictated by the signing flaco kelley. Melvi Vieyra nurse practitioner acting as scribe for signing physician. Objective - Vital Signs Vital signs: Vital Signs Temp 97.9 F 03/31/20 02:40 Pulse 82 03/31/20 02:40 Resp 18 03/31/20 02:40 BP 166/94 03/31/20 02:40 Pulse Ox 95 03/31/20 02:40 Intake & Output 03/30/20 03/31/20 03/31/20 18:59 06:59 18:59 Intake Total 1280 Output Total 2075 1000 Balance -795 -1000 Intake: IV 1040 Sodium Chloride 0.9% 1, 1040 000 ml @ 130 mls/hr IV . Q7H42M [facility] Rx#:[id number] Oral 240 Output: Urine 2075 1000 Uretheral (Rosado) 700 Other: Voiding Method Indwelling Catheter Indwelling Catheter - Labs CBC & Chem 7: 03/28/20 07:19 03/31/20 07:46 Labs: Abnormal Lab Results - Last 24 Hours (Table) 03/30/20 03/31/20 03/31/20 Range/Units 22:16 07:27 07:46 Chloride 109 H (98-107) mmol/L BUN 26 H (9-20) mg/dL POC Glucose (mg/dL) 119 H 74 L (75-99) mg/dL Calcium 8.1 L (8.4-10.2) mg/dL
[2020-03-31] MEDS: REMDESIVIR 100 MG in SODIUM CHLORIDE 0.9% 250 ML IVPB SCH (16:02)
--- NOTE | 2020-03-31 20:47 | PN ---
PROGRESS NOTE Patient is seen for followup for acute kidney injury. He has underlying COVID-19 infection and pneumonia. Renal function has improved to a creatinine of 1.1 from initial reading of 2.46. The patient had been maintained on IV fluids. The fluids were discontinued today. His mentation has improved. Case was discussed with nursing staff. The patient was not examined today. He has been euvolemic and alert and oriented x3. Blood pressure today was 142/90, heart rate 88 per minute. He is afebrile. No edema per nursing staff, and AUTO TECH exam is intact. Patient is alert and oriented x3. Oral intake has increased. Labs show sodium 138, potassium 4.3, chloride 109. CO2 is 25, BUN 26, creatinine 1.16. ASSESSMENT: 1. Acute kidney injury, prerenal as well as secondary to underlying COVID infection, currently improved. IV fluids have been discontinued. Continue to encourage increased oral intake. 2. COVID-19 infection and pneumonia, being followed by Pulmonary, maintained on steroids, currently improving, status post remdesivir as well. 3. Hypotension, maintained on midodrine. Cortisol level was ordered. I do not see it back yet. Blood pressure has improved; in fact, it is currently high. Patient did get off of the midodrine. He is started on Norvasc. 4. Encephalopathy associated with underlying infection, currently resolved. 5. Chronic kidney disease, stage 3. Previous creatinine 1.7, 1.8 in July and April. However, I believe that was an acute kidney injury. The patient has proteinuria, most likely underlying diabetic kidney disease. Serum creatinine currently at 1.1. 6. Mild hyperkalemia, currently improved. PLAN: Continue off of midodrine. Maintain Norvasc. Continue off of IV fluids for now. MMODL / IJN: [id number] /
--- NOTE | 2020-03-31 21:47 | PN ---
PROGRESS NOTE DATE OF SERVICE: 03/31/2020 REASON FOR FOLLOWUP: COVID-19 infection. INTERVAL HISTORY: The patient is currently afebrile. He is breathing comfortably. Still requiring 4 L nasal cannula. Denies having any chest pain or cough. No nausea, vomiting or abdominal pain or diarrhea. PHYSICAL EXAMINATION: Blood pressure 142/90 with a pulse of 88, temperature 97.7. He is 94% on 4 L nasal cannula. General description is a middle-aged male lying in bed in no distress. RESPIRATORY SYSTEM: Unlabored breathing with decreased intensity of breath sounds. No wheeze. HEART: S1, S2. Regular rate and rhythm. ABDOMEN: Soft. No tenderness. LABS: BUN of 26, creatinine 1.16. DIAGNOSTIC IMPRESSION AND PLAN: Patient with acute COVID-19 infection in this patient who presented to hospital predominantly with GI symptoms and acute kidney injury. The patient is currently covered with ampicillin, dexamethasone, Lovenox and zinc; to continue along with respiratory support and monitor his clinical course closely. MMODL / IJN: [id number] /
[2020-04-01] MEDS: ATORVASTATIN 40 MG TAB PO SCH ×2 (00:12→22:51)
[2020-04-01] MEDS: INSULIN DETEMIR (LEVEMIR) 100 UNIT/ML SYR SQ SCH ×3 (00:13→22:52)
[2020-04-01] MEDS: ARIPiprazole 10 MG TAB PO SCH (00:40)
[2020-04-01] MEDS: buPROPion SR 150 MG TABLET.ER PO SCH ×2 (00:40→09:29)
[2020-04-01] MEDS: PANTOPRAZOLE 40 MG TABLET PO SCH (06:48)
[2020-04-01] MEDS: TAMSULOSIN 0.4 MG CAP.ER.24H PO SCH (09:29)
[2020-04-01] MEDS: amLODIPine 10 MG TAB PO SCH (09:29)
[2020-04-01] MEDS: VENLAFAXINE HCL ER 75 MG CAP PO SCH (09:29)
[2020-04-01] MEDS: ZINC SULFATE 220 MG CAP PO SCH (09:29)
[2020-04-01] MEDS: ENOXAPARIN 40 MG/0.4 ML SYRINGE SQ SCH (09:29)
[2020-04-01] MEDS: amLODIPine 5 MG TAB PO SCH (09:30)
[2020-04-01] MEDS: DEXAMETHASONE SOD PHOSPHATE 10 MG/ML 1 ML VIAL IV SCH (09:30)
--- NOTE | 2020-04-01 09:43 | P.PN ---
Subjective Progress Note Date: 04/01/20 Principal diagnosis: CoVID 19 pneumonitis The patient is seen today 04/01/2020 in follow-up in the observation unit. He is currently sitting up in bed. Awake and alert in no acute distress. He denies any worsening shortness of breath, cough or congestion. No fever chills or night sweats. Currently on 3 L/m per nasal cannula and maintaining O2 saturations in the mid 90s. He is continued on Remdesivir, Lovenox, Decadron, vitamin supplements. Objective - Vital Signs Vital signs: Vital Signs Temp 97.9 F 04/01/20 03:00 Pulse 81 04/01/20 03:00 Resp 18 04/01/20 03:00 BP 153/84 04/01/20 03:00 Pulse Ox 96 04/01/20 03:00 Intake & Output 03/31/20 04/01/20 04/01/20 18:59 06:59 18:59 Intake Total 900 Output Total 2400 Balance -1500 Intake: Oral 900 Output: Urine 2400 Uretheral (Rosado) 2400 Other: Voiding Method Toilet # Voids 1 1 - Exam GENERAL EXAM: Alert, active, pleasant 49-year-old gentleman, on 3 L nasal cannula, comfortable in no apparent distress. HEAD: Normocephalic. EYES: Normal reaction of pupils, equal size. NOSE: Clear with pink turbinates. THROAT: No erythema or exudates. NECK: No masses, no JVD. CHEST: No chest wall deformity. LUNGS: Equal air entry with bibasilar crackles. CVS: S1 and S2 normal with no audible murmur, regular rhythm. ABDOMEN: No hepatosplenomegaly, normal bowel sounds, no guarding or rigidity. SPINE: No scoliosis or deformity SKIN: No rashes CENTRAL NERVOUS SYSTEM: No focal deficits, tone is normal in all 4 extremities. EXTREMITIES: There is no peripheral edema. No clubbing, no cyanosis. Peripheral pulses are intact. - Labs CBC & Chem 7: 03/28/20 07:19 03/31/20 07:46 Labs: Abnormal Lab Results - Last 24 Hours (Table) 03/31/20 Range/Units 12:02 POC Glucose (mg/dL) 108 H (75-99) mg/dL Assessment and Plan Assessment: #1. Acute hypoxic respiratory failure related to COVID 19 pneumonia , Clinically improving and currently he is 3 liters #2. Intractable nausea vomiting and diarrhea #3. Acute kidney injury related to dehydration, improving with hydration #4. Previous history of CVA #5. Diabetes mellitus type 2 #6. Anxiety #7. Depression #8. Chronic kidney disease stage III Plan The patient was seen and evaluated by Dr. Montez He is currently stable from the pulmonary standpoint Titrate down the FiO2 as tolerated currently on 3 L Continue Remdesivir Continue Lovenox, Decadron, vitamin supplements Increase his activity as tolerated Repeat chest x-ray and inflammatory markers in the a.m. We'll continue to follow I, the cosigning physician, performed a history & physical examination of the patient. Lungs sounds with few crackles in the bilateral posterior bases. Maintaining good O2 saturations in the 90s on 3 L/m per nasal cannula. I discussed the assessment and plan of care with my nurse practitioner, Che Moore. I attest to the above note as dictated by her.
--- NOTE | 2020-04-01 11:32 | P.PN ---
Subjective Progress Note Date: 04/01/20 HISTORY OF PRESENT ILLNESS 49-year-old male with history of mild obesity, hypertension and hyperlipidemia was seen the [facility] because of worsening symptom of nausea and vo miting along with diarrhea for the last few days. According to him his family were tested with Covid positive between his mom and brother and had severe significant exposure the patient lives with his mom. Patient admits to shortness of breath with pleuritic chest pain on and off along with low-grade temperature with no hematemesis slight increased urination mild lower back pain. Patient ended up being diagnosed with Covid 19 infection surprisingly with the severity of dehydration and prerenal patient was in acute anemia injury most likely ATN with chronic kidney disease. Blood sugar was quite bit elevated with elevated A1c. Patient was admitted start on O2 hydration will consult nephrol kelvin and consult infectious disease. 03/28: Patient continues to feel lethargic and tired. He denies any shortness of breath. He has a little diarrhea. No nausea or vomiting. Repeat blood work reveals WBC 4.2, hemoglobin 11, lymphocytes 0.9. Electrolytes normal. BUN 57 creatinine 2.14. Consult in place for nephrology and infectious disease. He is currently on IV fluids at 130 mL/h we'll continue until seen by nephrology. 03/29: Patient required Rosado catheter placement yesterday for urinary retention. The patient was up to the bathroom his pulse ox dropped down to 77% on room air. This morning, he shouldn't denies having any shortness of breath. He is currently pulse oxing 94% on 49 L nasal cannula. His been afebrile, heart rate 87, blood pressure 166/89. D-dimer is 0.46, LDH 596, C-reactive protein 25.9. Pro-calcitonin 0.08. Patient has been evaluated by Dr. Mayberry in to determine if patient candidate for Remdesivir. Due to hypoxia, consult with Dr. Montez was added. Patient was seen by nephrology for acute kidney injury with plan to continue IV fluids 03/30: Patient was started on Remdesivir yesterday. He is currently pulse oxing 92% on 4 L. He has a Rosado catheter in place and we will plan to remove this today, he is on Flomax 2 days a week which will be increased to daily. Patient states he is ambulated to the bathroom and after that. He has been afebrile, heart rate 84, blood pressure 155/90. Patient is reaching 1500 on incentive spirometry. Patient encouraged to get out of bed increase activity. Repeat blood work reveals improve renal function with BUN of 29 and creatinine 1.32. 03/31: Patient is seen today on the observation unit, in bed. Patient has not been out of bed this morning. We'll plan to discontinue Rosado catheter and patient encouraged to ambulate and move. He is currently pulse oxing 95% on 4 L, afebrile, heart rate 82, blood pressure 166/94. Amlodipine will be increased to 10 mg daily. He is currently on Remdesivir day #3/5. IV fluids will be discontinued and saline locked. Electrolytes are normal, BUN 26 and creatinine 1.16. 04/01: Patient is seen today on the observation unit in bed. Patient has not been out of bed today. Incentive spirometer is at the bedside. He continues to require 4 L nasal cannula with a pulse ox of 95% we will continue to decrease the O2 level. Patient is anxious to go home. Due to his need for oxygen while at this time he will stay at least one more day. Patient has received Remdesivir 2 out of 4 doses. Creatinine from yesterday 1.16 we will repeat BUN and creatinine today REVIEW OF SYSTEMS CONSTITUTIONAL: Well-developed no acute respiratory mildly overweight. Denies fever. Denies chills. Reports lethargy. EYES: No icterus sclerae, no conjunctivitis. EARS, NOSE, MOUTH, THROAT, and FACE: No sore throat, lymphadenopathy, carotid bruits or deformity. RESPIRATORY: Reports dyspnea with exertion, reports shortness of breath cough. CARDIOVASCULAR: No CP, Palpitation, PND, Orthopnea, or angina. GASTROINTESTINAL: Positive abdominal discomfort with nausea vomiting diarrhea GENITOURINARY: Negative for Hematuria or UTI, no kidney stones. Acute kidney injury INTEGUMENT/BREAST: Negative for any muscular injury with mild osteoarthritis.. HEMATOLOGIC/LYMPHATIC: Negative for bleed or purpura. MUSCULOSKELTAL: Negative for Myalgia or arthralgia. NEURLOGICAL: No LOC, Sz or syncope, blurred vision dizziness or abnormality.. BEHAVIORAL/PSYCH: Negative. ENDOCRINE: Negative. PHYSICAL EXAMINATION General Appearance: Alert, cooperative, no distress, obese 49-year-old male. He appears to be in no acute respiratory distress. Neck HEENT: Supple, no lymphadenopathy, no thyroid enlargement, no carotid bruits. Lungs: Clear to auscultation without crackles or wheezes no rhonchi, no deformity. Chest Wall: Decrease expansion with deep inspiration no tenderness and no deformity was found on exam, no costochondral pain or discomfort. Heart: Regular rate and rhythm, S1, S2 normal, no murmur, rub or gallop. Back: Symmetric, no curvature, ROM normal, no CVA tenderness. Abdomen: Soft, non-tender, bowel sounds active all four quadrants, no masses, no organomegaly. Rosado catheter draining clear kody urine Extremities: Extremities normal, atraumatic, no cyanosis or edema. Pulses: 2+ and symmetric. Skin: Skin color, texture, tugor normal, no rashes or lesions. Neurologic: Alert oriented x3 cranial nerves II through XII intact, no motor deficit, no abnormal balance or gait. ASSESSMENT AND PLAN 1 Acute Covid 19 infection: Continue supportive care with O2, zinc, vitamin C a nd vitamin D consult infectious disease appreciated. Consult with pulmonary medicine appreciated. Remdesivir day #3/. 2 acute kidney injury, resolved. Nephrology consult. Continue IV fluids 3 episode of acute hypoxic respiratory failure. Consult with Dr. Montez. Continue oxygen therapy. 4 type 2 diabetes: Due to low blood sugars Levemir decreased to 20 units at at bedtime and 30 units in the morning. continue Accu-Chek with sliding scales coverage. 5 Hypertension: Patient still running slightly bit low with hypertension still on midodrine 10 mg 3 times a day. 6 hyperlipidemia: Remain on atorvastatin 40 mg daily. 7 recurrent depression: Patient remain on Wellbutrin along with Effexor or and Abilify. 8 chronic pain syndrome: Remain on hydrocodone as needed. 9 severe GERD/GI prophylaxis: Remain on omeprazole 20 mg daily . 10 DVT prophylaxis: Patient be on Lovenox 40 mg subcutaneous daily. 11 mild hyperkalemia, hyponatremia 12 chronic kidney disease stage II CODE STATUS: Full code. DISCHARGE PLAN Home. Impression and plan of care have been directed as dictated by the signing physician. Martha Mercado nurse practitioner acting as scribe for signing physician. Objective - Vital Signs Vital signs: Vital Signs Temp 97.9 F 12/12/20 03:00 Pulse 81 04/01/20 03:00 Resp 18 04/01/20 03:00 BP 153/84 04/01/20 03:00 Pulse Ox 96 04/01/20 03:00 Intake & Output 03/31/20 04/01/20 04/01/20 18:59 06:59 18:59 Intake Total 900 Output Total 2400 Balance -1500 Intake: Oral 900 Output: Urine 2400 Uretheral (Rosado) 2400 Other: Voiding Method Toilet # Voids 1 1 - Labs CBC & Chem 7: 03/28/20 07:19 03/31/20 07:46 Labs: Abnormal Lab Results - Last 24 Hours (Table) 03/31/20 Range/Units 12:02 POC Glucose (mg/dL) 108 H (75-99) mg/dL
[2020-04-01] MEDS: REMDESIVIR 100 MG in SODIUM CHLORIDE 0.9% 250 ML IVPB SCH (15:37)
[2020-04-01 20:31] LABS: Glucose,Whole Blood 221 mg/dL (75-99)
--- NOTE | 2020-04-01 22:09 | PN ---
PROGRESS NOTE DATE OF SERVICE: 04/01/2020 REASON FOR FOLLOWUP: COVID-19 infection. INTERVAL HISTORY: The patient is currently afebrile. The patient says he is feeling better. He is breathing comfortably. The O2 has been cut down to about 2 to 3 L. Denies any chest pain, shortness of breath. No cough. No nausea or abdominal pain. No diarrhea and wants to go home. PHYSICAL EXAMINATION: Blood pressure 126/87, pulse of 82, temperature 97.9. He is 99% on 3 L nasal cannula. General description is a middle-aged male lying in bed in no distress. Respiratory system: Unlabored breathing, clear to auscultation. No wheeze or crackle. Heart S1, S2. Regular rate and rhythm. Abdomen soft, no tenderness. LABS: BUN of 26, creatinine 1.16. IMPRESSION/PLAN: Patient admitted to the hospital with acute nausea, vomiting, diarrhea in this patient with acute kidney injury and diagnosis of COVID-19, subsequent hypoxemia and has been started on Remdesivir and has shown overall clinical improvement with dexamethasone, Lovenox and Remdesivir. To slowly wean off the oxygen and continue supportive care. MMODL / IJN: [id number] /
[2020-04-02] MEDS: buPROPion SR 150 MG TABLET.ER PO SCH ×3 (00:03→22:09)
[2020-04-02] MEDS: ARIPiprazole 10 MG TAB PO SCH ×2 (00:03→22:09)
[2020-04-02 06:45] LABS: Glucose,Whole Blood 246 mg/dL (75-99)
[2020-04-02] MEDS: PANTOPRAZOLE 40 MG TABLET PO SCH (06:55)
[2020-04-02] MEDS: INSULIN DETEMIR (LEVEMIR) 100 UNIT/ML SYR SQ SCH ×2 (06:55→22:09)
--- NOTE | 2020-04-02 07:59 | XR ---
EXAMINATION TYPE: XR chest 1V portable DATE OF EXAM: 04/02/2020 COMPARISON: 04/08/2020 INDICATION: : Pneumonitis TECHNIQUE: Single frontal view of the chest is obtained. FINDINGS: The heart size is normal. The pulmonary vasculature is normal. Mild improving perihilar infiltrates are present. Residual remains at the right hilar region IMPRESSION: 1. Improving perihilar infiltrates
[2020-04-02 08:18] LABS: Basophils % (A) 0 %; Eosinophils % (A) 0 %; HCT 33.9 % (39.0-53.0); HGB 11.5 gm/dL (13.0-17.5); Lymphocytes % (A) 18 %; MCH 27.5 pg (25.0-35.0); MCHC 33.8 g/dL (31.0-37.0); MCV 81.2 fL (80.0-100.0); Mean Platelet Volume 6.5; Monocytes # (A) 0.4 k/uL (0-1.0); Monocytes % (A) 8 %; Neutrophils # (A) 3.8 k/uL (1.3-7.7); Neutrophils % (A) 72 %; Platelet Count 306 k/uL (150-450); RBC 4.18 m/uL (4.30-5.90); RDW 13.6 % (11.5-15.5); WBC 5.3 k/uL (3.8-10.6)
[2020-04-02 08:31] LABS: African American GFR (CKD) 80 (>60 ml/min/1.73 sqM); Anion Gap 4 mmol/L; Blood Urea Nitrogen 36 mg/dL (9-20); C Reactive Protein <5.0 mg/L (<10.0); Calcium 8.8 mg/dL (8.4-10.2); Carbon Dioxide 29 mmol/L (22-30); Chloride 104 mmol/L (98-107); Glucose 253 mg/dL (74-99); LDH 493 U/L (313-618); Non-African American GFR(CKD) 69 (>60 ml/min/1.73 sqM); Potassium 4.6 mmol/L (3.5-5.1); Sodium 137 mmol/L (137-145)
--- NOTE | 2020-04-02 09:33 | P.PN ---
Subjective Progress Note Date: 04/02/20 On 04/02/2020, the patient is doing well. No specific complaints. His chest x- ray is showing clearing of the bilateral pulmonary infiltrates. The patient is on oxygen at 3 L with a pulse ox of 93%. Hemodynamically stable. He is afebrile. No significant cough or sputum production. No other significant events overnight. Note that the patient has multiple medical comorbidities including diabetes mellitus type 2, previous history of CVA, chronic anxiety and depression. The patient was diagnosed having coronavirus/Covid 19 related pneumonia. The patient presented to us with some increased shortness of breath and hypoxemia and the patient is improving for now. He was treated with Decadron. He was also treated with Remdesivir and today he is on day 5 of treatment and is also on Lovenox. Objective - Vital Signs Vital signs: Vital Signs Temp 98.3 F 04/02/20 09:00 Pulse 80 04/02/20 09:00 Resp 16 04/02/20 09:00 BP 161/94 04/02/20 09:00 Pulse Ox 94 L 04/02/20 09:00 Intake & Output 04/01/20 04/02/20 04/02/20 18:59 06:59 18:59 Output Total 1000 Balance -1000 Output: Urine 1000 Other: Voiding Method Toilet # Voids 2 2 - Exam GENERAL EXAM: Alert, very pleasant, 49-year-old white male, on 3 l of oxygen with a pulse ox of 95%, comfortable in no apparent distress. The patient has been weaned off and the patient is currently on room air oxygen. HEAD: Normocephalic/atraumatic. EYES: Normal reaction of pupils, equal size. Conjunctiva pink, sclera white. NOSE: Clear with pink turbinates. THROAT: No erythema or exudates. NECK: No masses, no JVD, no thyroid enlargement, no adenopathy. CHEST: No chest wall deformity. Symmetrical expansion. LUNGS: Equal air entry with no crackles, wheeze, rhonchi or dullness. CVS: Regular rate and rhythm, normal S1 and S2, no gallops, no murmurs, no rubs ABDOMEN: Soft, nontender. No hepatosplenomegaly, normal bowel sounds, no guarding or rigidity. EXTREMITIES: No clubbing, no edema, no cyanosis, 2+ pulses and upper and lower extremities. MUSCULOSKELETAL: Muscle strength and tone normal. SPINE: No scoliosis or deformity SKIN: No rashes CENTRAL NERVOUS SYSTEM: Alert and oriented -3. No focal deficits, tone is normal in all 4 extremities. PSYCHIATRIC: Alert and oriented -3. Appropriate affect. Intact judgment and insight. - Labs CBC & Chem 7: 04/02/20 07:47 04/02/20 07:47 Labs: Abnormal Lab Results - Last 24 Hours (Table) 04/01/20 04/02/20 04/02/20 Range/Units 20:19 06:43 07:47 RBC (4.30-5.90) m/uL Hgb (13.0-17.5) gm/dL Hct (39.0-53.0) % D-Dimer 0.64 H (<0.60) mg/L FEU BUN (9-20) mg/dL Glucose (74-99) mg/dL POC Glucose (mg/dL) 221 H 246 H (75-99) mg/dL 04/02/20 04/02/20 Range/Units 07:47 07:47 RBC 4.18 L (4.30-5.90) m/uL Hgb 11.5 L (13.0-17.5) gm/dL Hct 33.9 L (39.0-53.0) % D-Dimer (<0.60) mg/L FEU BUN 36 H (9-20) mg/dL Glucose 253 H (74-99) mg/dL POC Glucose (mg/dL) (75-99) mg/dL Assessment and Plan Plan: #1. Acute hypoxic respiratory failure related to COVID 19 pneumonia , Clinically improving and currently he is somewhere between room air oxygen few liters. The patient is completing his course of Remdesivir is day 5 of treatment. The patient is also on Decadron. He is currently on 3 L of oxygen by nasal cannula. Chest x-ray showing clearing of the pulmonary infiltrates. #2. Intractable nausea vomiting and diarrhea #3. Acute kidney injury related to dehydration, improving with hydration #4. Previous history of CVA #5. Diabetes mellitus type 2 #6. Anxiety #7. Depression #8. Chronic kidney disease stage III Plan We'll titrate down the FiO2 Continue same treatment Possible home tomorrow either on room air oxygen oxygen supplementation. As the patient's creatinine is improving. Monitor renal function Clinically improving. We'll continue to follow. Possible discharge in the next 24-48 hours.
[2020-04-02] MEDS: ENOXAPARIN 40 MG/0.4 ML SYRINGE SQ SCH (10:37)
[2020-04-02] MEDS: amLODIPine 10 MG TAB PO SCH (10:37)
[2020-04-02] MEDS: VENLAFAXINE HCL ER 75 MG CAP PO SCH (10:38)
[2020-04-02] MEDS: DEXAMETHASONE SOD PHOSPHATE 10 MG/ML 1 ML VIAL IV SCH (10:38)
[2020-04-02] MEDS: TAMSULOSIN 0.4 MG CAP.ER.24H PO SCH (10:42)
[2020-04-02] MEDS: ZINC SULFATE 220 MG CAP PO SCH (10:42)
--- NOTE | 2020-04-02 11:27 | P.PN ---
Subjective Progress Note Date: 04/02/20 HISTORY OF PRESENT ILLNESS 49-year-old male with history of mild obesity, hypertension and hyperlipidemia [facility] of worsening symptom of nausea and vo miting along with diarrhea for the last few days. According to him his family were tested with Covid positive between his mom and brother and had severe significant exposure the patient lives with his mom. Patient admits to shortness of breath with pleuritic chest pain on and off along with low-grade temperature with no hematemesis slight increased urination mild lower back pain. Patient ended up being diagnosed with Covid 19 infection surprisingly with the severity of dehydration and prerenal patient was in acute anemia injury most likely ATN with chronic kidney disease. Blood sugar was quite bit elevated with elevated A1c. Patient was admitted start on O2 hydration will consult nephrol kelvin and consult infectious disease. 03/28: Patient continues to feel lethargic and tired. He denies any shortness of breath. He has a little diarrhea. No nausea or vomiting. Repeat blood work reveals WBC 4.2, hemoglobin 11, lymphocytes 0.9. Electrolytes normal. BUN 57 creatinine 2.14. Consult in place for nephrology and infectious disease. He is currently on IV fluids at 130 mL/h we'll continue until seen by nephrology. 03/29: Patient required Rosado catheter placement yesterday for urinary retention. The patient was up to the bathroom his pulse ox dropped down to 77% on room air. This morning, he shouldn't denies having any shortness of breath. He is currently pulse oxing 94% on 49 L nasal cannula. His been afebrile, heart rate 87, blood pressure 166/89. D-dimer is 0.46, LDH 596, C-reactive protein 25.9. Pro-calcitonin 0.08. Patient has been evaluated by Dr. Mayberry in to determine if patient candidate for Remdesivir. Due to hypoxia, consult with Dr. Montez was added. Patient was seen by nephrology for acute kidney injury with plan to continue IV fluids 03/30: Patient was started on Remdesivir yesterday. He is currently pulse oxing 92% on 4 L. He has a Rosado catheter in place and we will plan to remove this today, he is on Flomax 2 days a week which will be increased to daily. Patient states he is ambulated to the bathroom and after that. He has been afebrile, heart rate 84, blood pressure 155/90. Patient is reaching 1500 on incentive spirometry. Patient encouraged to get out of bed increase activity. Repeat blood work reveals improve renal function with BUN of 29 and creatinine 1.32. 03/31: Patient is seen today on the observation unit, in bed. Patient has not been out of bed this morning. We'll plan to discontinue Rosado catheter and patient encouraged to ambulate and move. He is currently pulse oxing 95% on 4 L, afebrile, heart rate 82, blood pressure 166/94. Amlodipine will be increased to 10 mg daily. He is currently on Remdesivir day #3/5. IV fluids will be discontinued and saline locked. Electrolytes are normal, BUN 26 and creatinine 1.16. 04/01: Patient is seen today on the observation unit in bed. Patient has not been out of bed today. Incentive spirometer is at the bedside. He continues to require 4 L nasal cannula with a pulse ox of 95% we will continue to decrease the O2 level. Patient is anxious to go home. Due to his need for oxygen while at this time he will stay at least one more day. Patient has received Remdesivir 2 out of 4 doses. Creatinine from yesterday 1.16 we will repeat BUN and creatinine today 04/02: Patient is seen today in the observation unit. He has been ambulatory in the room. He continues to have O2 at 5 L of oxygen 95%. She remains afebrile. Blood pressure 96/57, pulse rate 82, respirations 18 nonlabored. Patient has received Remdesivir 2 out of 4 doses. The 42, creatinine 0.5. REVIEW OF SYSTEMS CONSTITUTIONAL: Well-developed no acute respiratory mildly overweight. Denies fever. Denies chills. Reports lethargy. EYES: No icterus sclerae, no conjunctivitis. EARS, NOSE, MOUTH, THROAT, and FACE: No sore throat, lymphadenopathy, carotid bruits or deformity. RESPIRATORY: Reports dyspnea with exertion, reports shortness of breath cough. CARDIOVASCULAR: No CP, Palpitation, PND, Orthopnea, or angina. GASTROINTESTINAL: Positive abdominal discomfort with nausea vomiting diarrhea GENITOURINARY: Negative for Hematuria or UTI, no kidney stones. Acute kidney injury INTEGUMENT/BREAST: Negative for any muscular injury with mild osteoarthritis.. HEMATOLOGIC/LYMPHATIC: Negative for bleed or purpura. MUSCULOSKELTAL: Negative for Myalgia or arthralgia. NEURLOGICAL: No LOC, Sz or syncope, blurred vision dizziness or abnormality.. BEHAVIORAL/PSYCH: Negative. ENDOCRINE: Negative. PHYSICAL EXAMINATION General Appearance: Alert, cooperative, no distress, obese 49-year-old male. He appears to be in no acute respiratory distress. Neck HEENT: Supple, no lymphadenopathy, no thyroid enlargement, no carotid bruits. Lungs: Clear to auscultation without crackles or wheezes no rhonchi, no deformity. Chest Wall: Decrease expansion with deep inspiration no tenderness and no deformity was found on exam, no costochondral pain or discomfort. Heart: Regular rate and rhythm, S1, S2 normal, no murmur, rub or gallop. Back: Symmetric, no curvature, ROM normal, no CVA tenderness. Abdomen: Soft, non-tender, bowel sounds active all four quadrants, no masses, no organomegaly. Rosado catheter draining clear kody urine Extremities: Extremities normal, atraumatic, no cyanosis or edema. Pulses: 2+ and symmetric. Skin: Skin color, texture, tugor normal, no rashes or lesions. Neurologic: Alert oriented x3 cranial nerves II through XII intact, no motor deficit, no abnormal balance or gait. ASSESSMENT AND PLAN 1 Acute Covid 19 infection: Continue supportive care with O2, zinc, vitamin C and vitamin D consult infectious disease appreciated. Consult with pulmonary medicine appreciated. Remdesivir day #/. 2 acute kidney injury, resolved. Nephrology consult. Continue IV fluids 3 episode of acute hypoxic respiratory failure. Consult with Dr. Montez pre- she did. Continue oxygen therapy. 4 type 2 diabetes: Due to low blood sugars Levemir decreased to 20 units at at bedtime and 30 units in the morning. continue Accu-Chek with sliding scales coverage. 5 Hypertension: Patient still running slightly bit low with hypertension still on midodrine 10 mg 3 times a day. 6 hyperlipidemia: Remain on atorvastatin 40 mg daily. 7 recurrent depression: Patient remain on Wellbutrin along with Effexor or and Abilify. 8 chronic pain syndrome: Remain on hydrocodone as needed. 9 severe GERD/GI prophylaxis: Remain on omeprazole 20 mg daily . 10 DVT prophylaxis: Patient be on Lovenox 40 mg subcutaneous daily. 11 mild hyperkalemia, hyponatremia 12 chronic kidney disease stage II CODE STATUS: Full code. DISCHARGE PLAN Home possibly Friday Impression and plan of care have been directed as dictated by the signing physician. Martha Mercado nurse practitioner acting as scribe for signing physician. Objective - Vital Signs Vital signs: Vital Signs Temp 98.3 F 04/02/20 09:00 Pulse 80 04/02/20 09:00 Resp 16 04/02/20 09:00 BP 161/94 04/02/20 09:00 Pulse Ox 94 L 04/02/20 09:00 Intake & Output 04/01/20 04/02/20 04/02/20 18:59 06:59 18:59 Output Total 1000 Balance -1000 Output: Urine 1000 Other: Voiding Method Toilet # Voids 2 2 - Labs CBC & Chem 7: 04/02/20 07:47 04/02/20 07:47 Labs: Abnormal Lab Results - Last 24 Hours (Table) 04/01/20 04/02/20 04/02/20 Range/Units 20:19 06:43 07:47 RBC (4.30-5.90) m/uL Hgb (13.0-17.5) gm/dL Hct (39.0-53.0) % D-Dimer 0.64 H (<0.60) mg/L FEU BUN (9-20) mg/dL Glucose (74-99) mg/dL POC Glucose (mg/dL) 221 H 246 H (75-99) mg/dL 04/02/20 04/02/20 Range/Units 07:47 07:47 RBC 4.18 L (4.30-5.90) m/uL Hgb 11.5 L (13.0-17.5) gm/dL Hct 33.9 L (39.0-53.0) % D-Dimer (<0.60) mg/L FEU BUN 36 H (9-20) mg/dL Glucose 253 H (74-99) mg/dL POC Glucose (mg/dL) (75-99) mg/dL
--- NOTE | 2020-04-02 12:22 | P.PN ---
Subjective Progress Note Date: 04/02/20 Follow-up for acute kidney injury. Objective - Vital Signs Vital signs: Vital Signs Temp 98.3 F 04/02/20 09:00 Pulse 80 04/02/20 09:00 Resp 16 04/02/20 09:00 BP 161/94 04/02/20 09:00 Pulse Ox 94 L 04/02/20 09:00 Intake & Output 04/01/20 04/02/20 04/02/20 18:59 06:59 18:59 Output Total 1000 Balance -1000 Output: Urine 1000 Other: Voiding Method Toilet # Voids 2 2 - Exam Limited secondary to COVID-19 pandemic and to limit PPE. - Labs CBC & Chem 7: 04/02/20 07:47 04/02/20 07:47 Labs: Abnormal Lab Results - Last 24 Hours (Table) 04/01/20 04/02/20 04/02/20 Range/Units 20:19 06:43 07:47 RBC (4.30-5.90) m/uL Hgb (13.0-17.5) gm/dL Hct (39.0-53.0) % D-Dimer 0.64 H (<0.60) mg/L FEU BUN (9-20) mg/dL Glucose (74-99) mg/dL POC Glucose (mg/dL) 221 H 246 H (75-99) mg/dL 04/02/20 04/02/20 Range/Units 07:47 07:47 RBC 4.18 L (4.30-5.90) m/uL Hgb 11.5 L (13.0-17.5) gm/dL Hct 33.9 L (39.0-53.0) % D-Dimer (<0.60) mg/L FEU BUN 36 H (9-20) mg/dL Glucose 253 H (74-99) mg/dL POC Glucose (mg/dL) (75-99) mg/dL Assessment and Plan Assessment: #1 acute kidney injury secondary to COVID-19 ATN #2 CK D3 with a baseline creatinine of 1.1-1.3 with proteinuria #3 hypoxia secondary to pneumonia #4 hypertension with chronic kidney disease #5 encephalopathy improving Plan: #1 renal function stable. #2 monitor off Lasix and fluids.
[2020-04-02 12:26] LABS: Glucose,Whole Blood 184 mg/dL (75-99)
[2020-04-02] MEDS: REMDESIVIR 100 MG in SODIUM CHLORIDE 0.9% 250 ML IVPB SCH (15:45)
[2020-04-02 16:54] LABS: Glucose,Whole Blood 253 mg/dL (75-99)
[2020-04-02 21:19] LABS: Glucose,Whole Blood 251 mg/dL (75-99)
[2020-04-02] MEDS: ATORVASTATIN 40 MG TAB PO SCH (22:09)
--- NOTE | 2020-04-02 23:24 | PN ---
PROGRESS NOTE DATE OF SERVICE: 04/02/2020 REASON FOR FOLLOWUP: COVID-19 pneumonia. INTERVAL HISTORY: The patient is currently afebrile. The patient is breathing comfortably on room air. The patient denies having any chest pain. No shortness of breath or cough. No nausea, no vomiting. No abdominal pain or diarrhea and wants to go home. PHYSICAL EXAMINATION: Blood pressure is 120/89 with pulse of 87, temperature is 97.8. He is 97% on room air. General description is a middle-aged male up in the bed in no distress. RESPIRATORY SYSTEM: Unlabored breathing with decreased intensity of breath sounds. No wheeze. HEART: S1, S2. Regular rate and rhythm. ABDOMEN: Soft, no tenderness. LABS: D-dimer mildly elevated at 0.64. White count normal. No lymphopenia. The CRP normalized. DIAGNOSTIC IMPRESSION AND PLAN: Patient with acute COVID-19 pneumonia in this patient with underlying infection has been adequately treated. Patient has completed his 5-day course of remdesivir. Chest x-ray improving and the patient not anymore hypoxemic currently on dexamethasone to finish a 10-day course of therapy and continue with supportive care. MMODL / IJN: [id number] / MTDD
[2020-04-03 06:00] VITALS: RESP 18
[2020-04-03] MEDS: INSULIN DETEMIR (LEVEMIR) 100 UNIT/ML SYR SQ SCH (06:48)
[2020-04-03] MEDS: PANTOPRAZOLE 40 MG TABLET PO SCH (06:48)
[2020-04-03 06:58] LABS: Glucose,Whole Blood 164 mg/dL (75-99)
[2020-04-03 08:54] LABS: Basophils % (A) 0 %; Eosinophils % (A) 1 %; HCT 33.6 % (39.0-53.0); HGB 11.4 gm/dL (13.0-17.5); Lymphocytes % (A) 18 %; MCH 27.4 pg (25.0-35.0); MCHC 33.9 g/dL (31.0-37.0); MCV 80.8 fL (80.0-100.0); Mean Platelet Volume 6.5; Monocytes # (A) 0.4 k/uL (0-1.0); Monocytes % (A) 6 %; Neutrophils # (A) 4.3 k/uL (1.3-7.7); Neutrophils % (A) 74 %; Platelet Count 326 k/uL (150-450); RBC 4.16 m/uL (4.30-5.90); RDW 13.6 % (11.5-15.5); WBC 5.8 k/uL (3.8-10.6)
[2020-04-03 09:07] LABS: Calcium 8.8 mg/dL (8.4-10.2)
--- NOTE | 2020-04-03 09:09 | P.DS ---
Providers Date of admission: 03/28/20 06:48 Expected date of discharge: 04/03/20 Attending physician: Terrence Madrid Consults: 03/27/20 22:55 Consult Physician Routine Consulting Provider: Anuel Mayberry Consult Reason/Comments: COVID Do you want consulting provider notified?: Yes 03/27/20 22:56 Consult Physician Routine Consulting Provider: Julianna Barton Consult Reason/Comments: EMELI Do you want consulting provider notified?: Yes 03/29/20 09:02 Consult Physician Routine Consulting Provider: Jelani Montez Consult Reason/Comments: COVID, hypoxia Do you want consulting provider notified?: Yes Primary care physician: [facility] Course: HISTORY OF PRESENT ILLNESS 49-year-old male with history of mild obesity, hypertension and hyperlipidemia was [facility] because of worsening symptom of nausea and vomiting along with diarrhea for the last few days. According to him his family were tested with Covid positive between his mom and brother and had severe significant exposure the patient lives with his mom. Patient admits to shortness of breath with pleuritic chest pain on and off along with low-grade temperature with no hematemesis slight increased urination mild lower back pain. Patient ended up being diagnosed with Covid 19 infection surprisingly with the severity of dehydration and prerenal patient was in acute anemia injury most likely ATN with chronic kidney disease. Blood sugar was quite bit elevated with elevated A1c. Patient was admitted start on O2 hydration will consult nephrology and consult infectious disease. 03/28: Patient continues to feel lethargic and tired. He denies any shortness of breath. He has a little diarrhea. No nausea or vomiting. Repeat blood work reveals WBC 4.2, hemoglobin 11, lymphocytes 0.9. Electrolytes normal. BUN 57 creatinine 2.14. Consult in place for nephrology and infectious disease. He is currently on IV fluids at 130 mL/h we'll continue until seen by nephrology. 03/29: Patient required Rosado catheter placement yesterday for urinary retention. The patient was up to the bathroom his pulse ox dropped down to 77% on room air. This morning, he shouldn't denies having any shortness of breath. He is currently pulse oxing 94% on 49 L nasal cannula. His been afebrile, heart rate 87, blood pressure 166/89. D-dimer is 0.46, LDH 596, C-reactive protein 25.9. Pro-calcitonin 0.08. Patient has been evaluated by Dr. Mayberry in to determine if patient candidate for Remdesivir. Due to hypoxia, consult with Dr. Montez was added. Patient was seen by nephrology for acute kidney injury with plan to continue IV fluids 03/30: Patient was started on Remdesivir yesterday. He is currently pulse oxing 92% on 4 L. He has a Rosado catheter in place and we will plan to remove this today, he is on Flomax 2 days a week which will be increased to daily. Patient states he is ambulated to the bathroom and after that. He has been afebrile, heart rate 84, blood pressure 155/90. Patient is reaching 1500 on incentive spirometry. Patient encouraged to get out of bed increase activity. Repeat blood work reveals improve renal function with BUN of 29 and creatinine 1.32. 03/31: Patient is seen today on the observation unit, in bed. Patient has not been out of bed this morning. We'll plan to discontinue Rosado catheter and patient encouraged to ambulate and move. He is currently pulse oxing 95% on 4 L, afebrile, heart rate 82, blood pressure 166/94. Amlodipine will be increased to 10 mg daily. He is currently on Remdesivir day #3/5. IV fluids will be discontinued and saline locked. Electrolytes are normal, BUN 26 and creatinine 1.16. 04/01: Patient is seen today on the observation unit in bed. Patient has not been out of bed today. Incentive spirometer is at the bedside. He continues to require 4 L nasal cannula with a pulse ox of 95% we will continue to decrease the O2 level. Patient is anxious to go home. Due to his need for oxygen while at this time he will stay at least one more day. Patient has received Remdesivir 2 out of 4 doses. Creatinine from yesterday 1.16 we will repeat BUN and creatinine today 04/02: Patient is seen today in the observation unit. He has been ambulatory in the room. He continues to have O2 at 5 L of oxygen 95%. She remains afebrile. Blood pressure 96/57, pulse rate 82, respirations 18 nonlabored. Patient has received Remdesivir 2 out of 4 doses. The 42, creatinine 0.5. 04/03: Patient has been afebrile, heart rate 83, blood pressure 150/88, pulse ox on between 9397% on room air. Repeat blood work reveals W BC 5.8, hemoglobin 13.4. Lymphocytes are normal. Sodium 136, CO2 32, BUN 36 and creatinine 1.27. Blood sugars are running between 141 and 251. Patient denies having any shortness of breath. No nausea or vomiting, no diarrhea. Patient will be discharged home today in stable condition. ASSESSMENT AND PLAN 1 Acute Covid 19 infection 2 acute kidney injury, resolved. 3 acute hypoxic respiratory failure. 4 type 2 diabetes, uncontrolled wit hypoglycemia 5 Hypertension 6 hyperlipidemia 7 recurrent depression 8 chronic pain syndrome 9 severe GERD 10 mild hyperkalemia, hyponatremia 12 chronic kidney disease stage II DISCHARGE PLAN Home Impression and plan of care have been directed as dictated by the signing physician. Melvi Vieyra nurse practitioner acting as scribe for signing physician. Patient Condition at Discharge: Good Plan - Discharge Summary New Discharge Prescriptions: New Dexamethasone [Decadron] 6 mg PO DAILY #4 tablet amLODIPine [Norvasc] 10 mg PO DAILY #30 tab Zinc Sulfate [Orazinc] 220 mg PO DAILY cap Continue Atorvastatin [Lipitor] 40 mg PO HS Cyclobenzaprine [Flexeril] 5 mg PO TID PRN PRN Reason: Muscle Spasm HYDROcodone/APAP 7.5-325MG [Jay 7.5-325] 1 tab PO TID PRN PRN Reason: Pain Tamsulosin HCl [Flomax] 0.4 mg PO MOTH Venlafaxine HCl [Effexor XR] 225 mg PO DAILY Potassium Chloride ER [K-Dur 10] 10 meq PO BID Meclizine [Antivert] 25 mg PO TID PRN PRN Reason: Nausea And Vomiting Omeprazole 40 mg PO DAILY Midodrine HCl [ProAmatine] 10 mg PO TID Insulin Detemir [Levemir Flextouch] 40 units SQ DAILY Insulin Detemir [Levemir Flextouch] 30 units SQ HS buPROPion HCL [Wellbutrin SR] 150 mg PO BID ARIPiprazole [Abilify] 10 mg PO HS INSULIN LISPRO (HumaLOG) [humaLOG] See Protocol SQ AC-TID Discontinued lisinopriL [Zestril] 2.5 mg PO DAILY Discharge Medication List Atorvastatin [Lipitor] 40 mg PO HS 09/04/16 [History] Cyclobenzaprine [Flexeril] 5 mg PO TID PRN 03/13/19 [History] HYDROcodone/APAP 7.5-325MG [Jay 7.5-325] 1 tab PO TID PRN 07/24/19 [History] Tamsulosin HCl [Flomax] 0.4 mg PO MOTH 07/24/19 [History] ARIPiprazole [Abilify] 10 mg PO HS 03/27/20 [History] INSULIN LISPRO (HumaLOG) [humaLOG] See Protocol SQ AC-TID 03/27/20 [History] Insulin Detemir [Levemir Flextouch] 30 units SQ HS 03/27/20 [History] Insulin Detemir [Levemir Flextouch] 40 units SQ DAILY 03/27/20 [History] Meclizine [Antivert] 25 mg PO TID PRN 03/27/20 [History] Midodrine HCl [ProAmatine] 10 mg PO TID 03/27/20 [History] Omeprazole 40 mg PO DAILY 03/27/20 [History] Potassium Chloride ER [K-Dur 10] 10 meq PO BID 03/27/20 [History] Venlafaxine HCl [Effexor XR] 225 mg PO DAILY 03/27/20 [History] buPROPion HCL [Wellbutrin SR] 150 mg PO BID 03/27/20 [History] Dexamethasone [Decadron] 6 mg PO DAILY #4 tablet 04/03/20 [Rx] Zinc Sulfate [Orazinc] 220 mg PO DAILY cap 04/03/20 [Rx] amLODIPine [Norvasc] 10 mg PO DAILY #30 tab 04/03/20 [Rx] Follow up Appointment(s)/Referral(s): Justine Guillen MD [Primary Care Provider] - 1 Week (Virtual visit) Ambulatory/Diagnostic Orders: Basic Metabolic Panel [LAB.AMB] Location: None Selected
[2020-04-03] MEDS: ZINC SULFATE 220 MG CAP PO SCH (09:54)
[2020-04-03] MEDS: VENLAFAXINE HCL ER 75 MG CAP PO SCH (09:54)
[2020-04-03] MEDS: buPROPion SR 150 MG TABLET.ER PO SCH (09:54)
[2020-04-03] MEDS: amLODIPine 10 MG TAB PO SCH (09:54)
[2020-04-03] MEDS: TAMSULOSIN 0.4 MG CAP.ER.24H PO SCH (09:54)
[2020-04-03] MEDS: DEXAMETHASONE SOD PHOSPHATE 10 MG/ML 1 ML VIAL IV SCH (09:55)
[2020-04-03] MEDS: ENOXAPARIN 40 MG/0.4 ML SYRINGE SQ SCH (09:56)
[2020-04-03 10:08] VITALS: BP 134/82; PULSE 89; TEMP 98.3
[2020-04-03] MEDS: amLODIPine 5 MG TAB PO SCH (10:58)
--- NOTE | 2020-04-03 10:59 | P.PN ---
Subjective Progress Note Date: 04/03/20 Principal diagnosis: Acute hypoxic respiratory failure secondary to covid19 pneumonia. Patient was reevaluated today on 04/03/20, patient remains on the regular medical floor in the observation unit, he is doing well, he is saturating well over 90% on room air. Patient is asking to be discharged home, relatively asymptomatic, no cough no wheezing no shortness of breath. Objective - Vital Signs Vital signs: Vital Signs Temp 98.3 F 04/03/20 09:00 Pulse 89 04/03/20 09:00 Resp 18 04/03/20 09:00 BP 134/82 04/03/20 09:00 Pulse Ox 100 04/03/20 09:00 Intake & Output 04/02/20 04/03/20 04/03/20 18:59 06:59 18:59 Intake Total 450 240 Output Total 1000 Balance 450 -1000 240 Intake: IV 250 Remdesivir 100 mg In 250 Sodium Chloride 0.9% 250 ml @ 250 mls/hr IVPB DAILY@1500 KERVIN Rx#: [id number] Oral 200 240 Output: Urine 1000 Other: Voiding Method Toilet Toilet # Voids 1 1 1 - Exam Physical Exam: Revealed 49-year-old white male in no distress. HEENT:[Neck is supple.] [No neck masses.] [No thyromegaly.] [No JVD.] Chest: [Clear throughout, no crackles, no rhonchi, no wheezes.] Cardiac Exam: [Normal S1 and S2, no S3 gallop, no murmur.] Abdomen: [Soft, nontender, no megaly, no rebound, no guarding, normal bowel sounds.] Extremities: [No clubbing, no edema, no cyanosis.] Psychiatric: Normal mood, affect and normal mental status examination. Neurological Exam: [No focal neurologic deficit.] Skin: No rashes - Labs CBC & Chem 7: 04/03/20 08:33 04/03/20 08:33 Labs: Abnormal Lab Results - Last 24 Hours (Table) 04/02/20 04/02/20 04/02/20 Range/Units 12:24 16:52 21:17 RBC (4.30-5.90) m/uL Hgb (13.0-17.5) gm/dL Hct (39.0-53.0) % Sodium (137-145) mmol/L Carbon Dioxide (22-30) mmol/L BUN (9-20) mg/dL Creatinine (0.66-1.25) mg/dL Glucose (74-99) mg/dL POC Glucose (mg/dL) 184 H 253 H 251 H (75-99) mg/dL 04/03/20 04/03/20 04/03/20 Range/Units 06:52 08:33 08:33 RBC 4.16 L (4.30-5.90) m/uL Hgb 11.4 L (13.0-17.5) gm/dL Hct 33.6 L (39.0-53.0) % Sodium 136 L (137-145) mmol/L Carbon Dioxide 32 H (22-30) mmol/L BUN 36 H (9-20) mg/dL Creatinine 1.27 H (0.66-1.25) mg/dL Glucose 141 H (74-99) mg/dL POC Glucose (mg/dL) 164 H (75-99) mg/dL Assessment and Plan Assessment: Impression: Acute hypoxic respiratory failure secondary to covid 19 pneumonia Acute kidney injury second to dehydration. Improved and resolved with hydration. Type 2 diabetes. Generalized anxiety disorder. Recommendation: Patient was seen and examined this morning, I agree with discharge planning, Follow-up on outpatient basis. Patient to remain on covid 19 cocktail.
--- NOTE | 2020-04-03 11:13 | P.PN ---
Subjective Patient is seen in follow-up for acute kidney injury on chronic kidney disease. Patient has chronic kidney disease stage III with baseline creatinine 1.2-1.3. GFR is back to baseline. Denies chest pain or shortness of breath. Oral intake is good. No chest pain or shortness of breath. Vital signs are stable. General: The patient appeared well nourished and normally developed. HEENT: Head exam is unremarkable. Neck is without jugular venous distension. LUNGS: Breath sounds decreased. HEART: Rate and Rhythm are regular. ABDOMEN: No distention. EXTREMITITES: No edema. Objective - Vital Signs Vital signs: Vital Signs Temp 98.3 F 04/03/20 09:00 Pulse 89 04/03/20 09:00 Resp 18 04/03/20 09:00 BP 134/82 04/03/20 09:00 Pulse Ox 100 04/03/20 09:00 Intake & Output 04/02/20 04/03/20 04/03/20 18:59 06:59 18:59 Intake Total 450 240 Output Total 1000 Balance 450 -1000 240 Intake: IV 250 Remdesivir 100 mg In 250 Sodium Chloride 0.9% 250 ml @ 250 mls/hr IVPB DAILY@1500 KERVIN Rx#: [id number] Oral 200 240 Output: Urine 1000 Other: Voiding Method Toilet Toilet # Voids 1 1 1 - Labs CBC & Chem 7: 04/03/20 08:33 04/03/20 08:33 Labs: Abnormal Lab Results - Last 24 Hours (Table) 04/02/20 04/02/20 04/02/20 Range/Units 12:24 16:52 21:17 RBC (4.30-5.90) m/uL Hgb (13.0-17.5) gm/dL Hct (39.0-53.0) % Sodium (137-145) mmol/L Carbon Dioxide (22-30) mmol/L BUN (9-20) mg/dL Creatinine (0.66-1.25) mg/dL Glucose (74-99) mg/dL POC Glucose (mg/dL) 184 H 253 H 251 H (75-99) mg/dL 04/03/20 04/03/20 04/03/20 Range/Units 06:52 08:33 08:33 RBC 4.16 L (4.30-5.90) m/uL Hgb 11.4 L (13.0-17.5) gm/dL Hct 33.6 L (39.0-53.0) % Sodium 136 L (137-145) mmol/L Carbon Dioxide 32 H (22-30) mmol/L BUN 36 H (9-20) mg/dL Creatinine 1.27 H (0.66-1.25) mg/dL Glucose 141 H (74-99) mg/dL POC Glucose (mg/dL) 164 H (75-99) mg/dL Assessment and Plan Plan: Assessment: 1. Acute kidney injury secondary to ATN secondary to COVID-19 infection. Resolved. 2. Chronic kidney disease stage III with baseline creatinine 1.2-1.3. 3. Covid 19 infection maintained on steroids and 6. Status post remdesivir. 4. Diabetes mellitus. 5. Hypertension with chronic kidney disease. Stable. Plan: Remains off IV fluids and diuretics at this time. Encourage oral intake. Avoid nephrotoxins. Follow up outpatient in 7-10 days.
--- NOTE | 2020-04-03 15:26 | P.PN ---
Progress Note - Text Progress Note Date: 04/03/20 REASON FOR FOLLOWUP: COVID-19 pneumonia. INTERVAL HISTORY: The patient is afebrile. The patient is breathing comfortably on room air. The patient denies having any chest pain, shortness of breath or cough. No nausea, no vomiting. No abdominal pain or diarrhea and wants to go home. PHYSICAL EXAMINATION: Blood pressure is 125/80 with pulse of 87, temperature is 97.8. He is 97% on room air. General description is a middle-aged male up in the bed in no distress. RESPIRATORY SYSTEM: Unlabored breathing with decreased intensity of breath sounds. No wheeze. HEART: S1, S2. Regular rate and rhythm. ABDOMEN: Soft, no tenderness. LABS: reviewed . DIAGNOSTIC IMPRESSION AND PLAN: Patient with acute COVID-19 pneumonia in this patient with underlying infection has been adequately treated. Patient has completed his 5-day course of remdesivir. Chest x-ray improving and the patient not anymore hypoxemic currently on dexamethasone will finish a total of 10-day course of therapy and continue with supportive care.
== END 2020-04-03 14:45 | disposition home or self-care (01) | DRG 177 ==
LOC: EC 12:27 → 1SOBS 16:12 → OBSVTOIN 03-28 06:48
PROVIDERS: ADMIT Internal Medicine Geriatric Medicine; ATTEND Internal Medicine Geriatric Medicine
PROC: XW033E5 Introduction of Remdesivir Anti-infective into Peripheral Vein, Percutaneous Approach, New Technology Group 5 (ICD-10-PCS; principal; 2020-03-28)
DX: U07.1 COVID-19 (principal); N17.0 Acute kidney failure with tubular necrosis; J96.01 Acute respiratory failure with hypoxia; J12.89 Other viral pneumonia; G93.40 Encephalopathy, unspecified; E87.1 Hypo-osmolality and hyponatremia; E78.5 Hyperlipidemia, unspecified; N18.30 Chronic kidney disease, stage 3 unspecified; K21.9 Gastro-esophageal reflux disease without esophagitis; I12.9 Hypertensive chronic kidney disease with stage 1 through stage 4 chronic kidney disease, or unspecified chronic kidney disease; F41.1 Generalized anxiety disorder; E11.65 Type 2 diabetes mellitus with hyperglycemia; F31.9 Bipolar disorder, unspecified; R33.9 Retention of urine, unspecified; E87.5 Hyperkalemia; E86.0 Dehydration; E11.22 Type 2 diabetes mellitus with diabetic chronic kidney disease; D64.9 Anemia, unspecified; E66.9 Obesity, unspecified; G89.4 Chronic pain syndrome; Z91.09 Other allergy status, other than to drugs and biological substances; Z98.49 Cataract extraction status, unspecified eye; Z86.73 Personal history of transient ischemic attack (TIA), and cerebral infarction without residual deficits; Z83.3 Family history of diabetes mellitus; Z86.14 Personal history of Methicillin resistant Staphylococcus aureus infection; Z79.899 Other long term (current) drug therapy; Z79.52 Long term (current) use of systemic steroids; Z79.4 Long term (current) use of insulin; Z79.01 Long term (current) use of anticoagulants; Z98.890 Other specified postprocedural states; Z68.33 Body mass index [BMI] 33.0-33.9, adult
CPT/HCPCS: 36415; 71045; 71046; 80048; 80053; 81001; 82728; 83036; 83605; 83615; 83735; 84145; 84484; 85025; 85379; 85610; 85730; 86140; 87502; 87635; 93005; 96360; 96361; 99285

== ENCOUNTER → 2020-05-01 | Outpatient (CLI) | payer OTHER ==
--- NOTE | 2020-05-01 12:26 | FL ---
EXAMINATION TYPE: FL barium swallow w video DATE OF EXAM: 05/01/2020 MODIFIED SWALLOW / DEGLUTITION STUDY CLINICAL HISTORY: Dysphagia. TECHNIQUE: Deglutition study is performed utilizing thin liquid barium, honey and nectar thick liqui d barium, barium thick pudding, and barium coated cracker. Total 1 minute 35 seconds of fluoro time and 0 images are saved to PACS. COMPARISON: None. FINDINGS: The oral and pharyngeal phases show satisfactory initiation and propagation with all modali ties tested. Normal mastication is seen with solid modalities tested. There is no evidence of penet ration or aspiration with any modality tested. No significant pharyngeal residue was appreciated. IMPRESSION: Normal deglutition study. Please refer to speech therapist notes for further details if necessary.
== END | disposition home or self-care (01) ==
LOC: RADFLMAIN 11:25
PROVIDERS: ATTEND Family Medicine
DX: R13.13 Dysphagia, pharyngeal phase (principal)
CPT/HCPCS: 74230

== ENCOUNTER 2020-06-29 19:20 | Inpatient (IN) | payer OTHER ==
--- NOTE | 2020-06-29 19:35 | CT ---
EXAMINATION TYPE: CT brain wo con for TPA DATE OF EXAM: 06/29/2020 COMPARISON: CT brain December 16, 2019 HISTORY: Acute onset Neuro deficits. Code stroke. CT DLP: 1055.8 mGycm. Automated Exposure Control for Dose Reduction was Utilized. TECHNIQUE: CT scan of the head is performed without contrast. FINDINGS: There is no acute intracranial hemorrhage, mass effect, or midline shift identified. The ventricles and sulci are within normal limits in size. Small mucous retention cyst or polyp left max illary sinus partially imaged on the last axial image. Remainder paranasal sinuses are clear. Globes are intact bilaterally. IMPRESSION: No acute intracranial hemorrhage or midline shift is seen. No significant change from pr ior CT.
[2020-06-29] MEDS ORDERED: Alteplase PER PHARMACY Stroke 1 EACH MISC MISCELLANE PRN (19:36)
[2020-06-29] MEDS ORDERED: ALTEPLASE IV STA (19:38)
[2020-06-29] MEDS ORDERED: ALTEPLASE BOLUS FOR STROKE 9 MG in EMPTY SYRINGE 1 SYR IV STA (19:38)
[2020-06-29 19:43] LABS: Basophils % (A) 0 %; Eosinophils # (A) 0.2 k/uL (0-0.7); Eosinophils % (A) 3 %; HCT 32.9 % (39.0-53.0); HGB 11.4 gm/dL (13.0-17.5); Lymphocytes # (A) 1.7 k/uL (1.0-4.8); Lymphocytes % (A) 22 %; MCH 28.8 pg (25.0-35.0); MCHC 34.7 g/dL (31.0-37.0); Mean Platelet Volume 6.6; Monocytes # (A) 0.4 k/uL (0-1.0); Monocytes % (A) 5 %; Neutrophils # (A) 5.3 k/uL (1.3-7.7); Neutrophils % (A) 69 %; Platelet Count 317 k/uL (150-450); RBC 3.97 m/uL (4.30-5.90); RDW 13.5 % (11.5-15.5); WBC 7.7 k/uL (3.8-10.6)
--- NOTE | 2020-06-29 19:51 | CT ---
EXAMINATION TYPE: CT angio head neck DATE OF EXAM: 06/29/2020 HISTORY: Neuro deficits acute onset. Code stroke COMPARISON: CTA head and neck May 08, 2019 CT DLP: 594.7 mGycm. Automated Exposure Control for Dose Reduction was Utilized. TECHNIQUE: CTA scan of the head and neck are performed with IV Contrast, patient injected with 65ml mL of Isovue 370, axial images are obtained, coronal and sagittal reformatted images are reviewed. Th ree-D reconstructed images are created on an independent workstation and reviewed. FINDINGS: Carotid/Vascular Structures: Bovine type aortic arch redemonstrated. Normal origin right common carot id artery from brachiocephalic artery redemonstrated . No significant plaque or stenosis in the commo n carotid arteries bilaterally. Mild posterior plaque posterior left carotid bulb redemonstrated. No significant plaque or stenosis in the external carotid arteries bilaterally. No significant stenosis in internal carotid arteries bilaterally. No right-sided plaque. Hypoplastic anterior communicating a rtery. No significant focal stenosis or aneurysm in the anterior circulation dominant left vertebral artery fills the basilar artery. No significant focal stenosis or aneurysm in the posterior circulati on. Hypoplastic bilateral posterior communicating arteries noted. No significant change from prior. Other: Small mucous retention cyst or polyp in the left maxillary sinus. Moderate disc space narrowin g and spurring C5-C6 level. Slight grade 1 retrolisthesis C5 on C6. Slight grade 1 anterolisthesis C7 on T1. No significant change from prior. IMPRESSION: No significant stenosis in common or internal carotid arteries bilaterally. No significa nt stenosis in the [place]. No significant change from prior.
[2020-06-29 19:53] LABS: Partial Thromboplastin Time 22.9 sec (22.0-30.0); Prothrombin Time 10.6 sec (9.0-12.0)
[2020-06-29 19:58] LABS: Albumin 3.3 g/dL (3.5-5.0); Calcium 8.7 mg/dL (8.4-10.2); Potassium 4.6 mmol/L (3.5-5.1); Total Bilirubin 0.3 mg/dL (0.2-1.3); Total Protein 5.6 g/dL (6.3-8.2)
--- NOTE | 2020-06-29 20:24 | XR ---
EXAMINATION TYPE: XR chest 2V DATE OF EXAM: 06/29/2020 COMPARISON: Chest x-ray April 02, 2020 HISTORY: Altered mental status and weakness. TECHNIQUE: Frontal and lateral views of the chest are obtained. FINDINGS: Low lung volumes and mild chronic parenchymal changes are redemonstrated bilaterally. Ther e is no suspicious new focal air space opacity, pleural effusion, or pneumothorax seen. The cardiac silhouette size is stable and within normal limits. The osseous structures are intact. IMPRESSION: No acute cardiopulmonary process currently.
--- NOTE | 2020-06-29 21:58 | ED ---
Neuro HPI - General Chief Complaint: Neuro Symptoms/Deficit Stated Complaint: Possible Stroke Time Seen by Provider: 06/29/20 19:21 Source: patient, EMS, RN notes reviewed, old records reviewed Mode of arrival: EMS Limitations: no limitations - History of Present Illness Is the patient presenting with stroke symptoms?: Yes Initial Comments: This is a 49-year-old male history of CVA diabetes hypertension who had the onset initially reportedly for Misael prior to arrival of sudden onset of left facial droop left upper lower extremity weakness and he fell from a stool he was on. No headache reported no head neck or back pain. Was later learned that she felt somewhat weak and took a nap and when he woke up shortly thereafter that the symptoms seemed to start. Blood pressure was adequate and other vital signs are stable. The patient was awake and alert. He was brought in by EMS and a code stroke was called with the patient be taken immediately to CAT scan from the ambulance. No reports of fevers chills nausea vomiting sweats - Related Data Home Medications: Home Medications Medication Instructions Recorded Confirmed Atorvastatin [Lipitor] 40 mg PO HS 09/04/16 06/29/20 Cyclobenzaprine [Flexeril] 5 mg PO TID PRN 03/13/19 06/29/20 ARIPiprazole [Abilify] 10 mg PO HS 03/27/20 06/29/20 Omeprazole 40 mg PO DAILY 03/27/20 06/29/20 Potassium Chloride ER [K-Dur 10] 10 meq PO BID 03/27/20 06/29/20 Venlafaxine HCl [Effexor XR] 225 mg PO DAILY 03/27/20 06/29/20 buPROPion HCL [Wellbutrin SR] 150 mg PO BID 03/27/20 06/29/20 Gabapentin 400 mg PO BID 06/29/20 06/29/20 Insulin NPH Hum/Reg Insulin Hm 20 unit SQ AC-SUPPER 06/29/20 06/29/20 [humuLIN 70/30 Kwikpen] Insulin NPH Hum/Reg Insulin Hm 30 unit SQ -BRKFST 06/29/20 06/29/20 [humuLIN 70/30 Kwikpen] Methylphenidate HCl 20 mg PO BID 06/29/20 06/29/20 Silodosin [Rapaflo] 4 mg PO DAILY 06/29/20 06/29/20 lisinopriL [Zestril] 5 mg PO DAILY 06/29/20 06/29/20 Allergies/Adverse Reactions: Allergies Allergy/AdvReac Type Severity Reaction Status Date / Time lactose AdvReac Nausea & Verified 06/29/20 20:52 Vomiting & Diarrhea Review of Systems ROS Statement: Those systems with pertinent positive or pertinent negative responses have been documented in the HPI. ROS Other: All systems not noted in ROS Statement are negative. General Exam - General Exam Comments Initial Comments: Is a well-developed well-nourished awake alert oriented 3 male Limitations: no limitations General appearance: alert, anxious, in distress Head exam: Present: atraumatic, normocephalic, normal inspection Eye exam: Present: normal appearance, PERRL, EOMI. Absent: scleral icterus, conjunctival injection, periorbital swelling ENT exam: Present: other (Poor dentition with cavities noted) Neck exam: Present: normal inspection, full ROM, other (No stridor JVD or bruit s). Absent: tenderness, meningismus, lymphadenopathy Respiratory exam: Present: normal lung sounds bilaterally. Absent: respiratory distress, wheezes, rales, rhonchi, stridor Cardiovascular Exam: Present: regular rate, normal rhythm, normal heart sounds. Absent: systolic murmur, diastolic murmur, rubs, gallop, clicks GI/Abdominal exam: Present: soft, normal bowel sounds. Absent: distended, tenderness, guarding, rebound, rigid Extremities exam: Present: normal inspection, normal capillary refill, other (Left upper lower extremity weakness). Absent: full ROM, tenderness, pedal edema, joint swelling, calf tenderness Back exam: Present: normal inspection Neurological exam: Present: alert, oriented X3, CN II-XII intact, motor sensory deficit Psychiatric exam: Present: normal affect, anxious Skin exam: Present: warm, dry, intact, normal color. Absent: rash Stroke MDM - Lab Data Result diagrams: 06/29/20 19:34 06/29/20 19:34 Lab Results 06/29/20 06/29/20 06/29/20 Range/Units 19:34 19:34 19:34 WBC 7.7 (3.8-10.6) k/uL RBC 3.97 L (4.30-5.90) m/uL Hgb 11.4 L (13.0-17.5) gm/dL Hct 32.9 L (39.0-53.0) % MCV 83.0 (80.0-100.0) fL MCH 28.8 (25.0-35.0) pg MCHC 34.7 (31.0-37.0) g/dL RDW 13.5 (11.5-15.5) % Plt Count 317 (150-450) k/uL MPV 6.6 Neutrophils % 69 % Lymphocytes % 22 % Monocytes % 5 % Eosinophils % 3 % Basophils % 0 % Neutrophils # 5.3 (1.3-7.7) k/uL Lymphocytes # 1.7 (1.0-4.8) k/uL Monocytes # 0.4 (0-1.0) k/uL Eosinophils # 0.2 (0-0.7) k/uL Basophils # 0.0 (0-0.2) k/uL PT 10.6 (9.0-12.0) sec INR 1.0 (<1.2) APTT 22.9 (22.0-30.0) sec Sodium 134 L (137-145) mmol/L Potassium 4.6 (3.5-5.1) mmol/L Chloride 99 (98-107) mmol/L Carbon Dioxide 27 (22-30) mmol/L Anion Gap 8 mmol/L BUN 39 H (9-20) mg/dL Creatinine 1.45 H (0.66-1.25) mg/dL Est GFR (CKD-EPI)AfAm 65 (>60 ml/min/1.73 sqM) Est GFR (CKD-EPI)NonAf 57 (>60 ml/min/1.73 sqM) Glucose 275 H (74-99) mg/dL Calcium 8.7 (8.4-10.2) mg/dL Total Bilirubin 0.3 (0.2-1.3) mg/dL AST 17 (17-59) U/L ALT 16 (4-49) U/L Alkaline Phosphatase 96 (38-126) U/L Creatine Kinase 123 (55-170) U/L Troponin I (0.000-0.034) ng/mL Total Protein 5.6 L (6.3-8.2) g/dL Albumin 3.3 L (3.5-5.0) g/dL 06/29/20 Range/Units 19:34 WBC (3.8-10.6) k/uL RBC (4.30-5.90) m/uL Hgb (13.0-17.5) gm/dL Hct (39.0-53.0) % MCV (80.0-100.0) fL MCH (25.0-35.0) pg MCHC (31.0-37.0) g/dL RDW (11.5-15.5) % Plt Count (150-450) k/uL MPV Neutrophils % % Lymphocytes % % Monocytes % % Eosinophils % % Basophils % % Neutrophils # (1.3-7.7) k/uL Lymphocytes # (1.0-4.8) k/uL Monocytes # (0-1.0) k/uL Eosinophils # (0-0.7) k/uL Basophils # (0-0.2) k/uL PT (9.0-12.0) sec INR (<1.2) APTT (22.0-30.0) sec Sodium (137-145) mmol/L Potassium (3.5-5.1) mmol/L Chloride (98-107) mmol/L Carbon Dioxide (22-30) mmol/L Anion Gap mmol/L BUN (9-20) mg/dL Creatinine (0.66-1.25) mg/dL Est GFR (CKD-EPI)AfAm (>60 ml/min/1.73 sqM) Est GFR (CKD-EPI)NonAf (>60 ml/min/1.73 sqM) Glucose (74-99) mg/dL Calcium (8.4-10.2) mg/dL Total Bilirubin (0.2-1.3) mg/dL AST (17-59) U/L ALT (4-49) U/L Alkaline Phosphatase (38-126) U/L Creatine Kinase (55-170) U/L Troponin I <0.012 (0.000-0.034) ng/mL Total Protein (6.3-8.2) g/dL Albumin (3.5-5.0) g/dL - NIH Stroke Scale 1a. Level of Consciousness: (0) alert 1b. LOC Questions: (0) answers correctly 1c. LOC Commands: (0) performs tasks correctly 2. Best Gaze: (0) normal 3. Visual: (0) no visual loss 4. Facial Palsy: (0) normal symmetrical movement 5a. Motor Arm Left: (1) drift 5b. Motor Arm Right: (0) no drift 6a. Motor Leg Left: (1) drift 6b. Motor Leg Right: (0) no drift 7. Limb Ataxia: (0) absent 8. Sensory: (0) normal 9. Best Language: (0) no aphasia 10. Dysarthria: (1) mild/moderate dysarthria - Thrombolytic Inclusion/Exclusion Thrombolytic Inclusion Criteria: Symptom Onset < 4.5 h, NIH Stroke Scale Deficit, Negative CT Scan for ICH, Age 18 or Older - Medical Decision Making Patient was a TPA candidate he was given TPA in appropriate fashion. Patient will be admitted to this facility at did discuss the case with Dr. Ferrera. Patient will be admitted with usual care post TPA and stroke with neurological consultation. Of note patient did have some dental caries a left upper molar noted to have a slight amount of oozing of blood this will be monitored. Evidence of bleeding - Radiology Data Radiology results: report reviewed, image reviewed (Imaging reviewed as well as report and discussed with Dr. Alva. No acute findings are seen. No evidence of any obvious obstruction.) - EKG Data -: EKG Interpreted by Tn EKG shows normal: sinus rhythm (Sinus rhythm at 90. Interval 150 QRS duration 80 QT since QTC 350/437 pulses criteria for LVH nonspecific ST configuration) Past Medical History Past Medical History: CVA/TIA, Diabetes Mellitus Additional Past Medical History / Comment(s): neuropathy carpel tunnel border line bipolar History of Any Multi-Drug Resistant Organisms: MRSA Date of last positivie culture/infection: 04/22/16 MDRO Source:: Right Hand Past Surgical History: Orthopedic Surgery Additional Past Surgical History / Comment(s): Colonscopy eye cataract surg Past Anesthesia/Blood Transfusion Reactions: No Reported Reaction Past Psychological History: Anxiety, Bipolar, Depression Smoking Status: Never smoker Past Alcohol Use History: None Reported Past Drug Use History: None Reported - Past Family History Mother Family Medical History: Diabetes Mellitus Additional Family Medical History / Comment(s): Mother is alive at age 61 with history of diabetes. Patient does not have any contact with his father. Brother(s) Additional Family Medical History / Comment(s): Patient has 2 brothers and one has history of diabetes and one has no major medical problems. Patient does not have any sisters. Patient does not have any children. Course Vital Signs 06/29/20 06/29/20 19:32 19:49 Temperature 98.8 F Pulse Rate 93 92 Respiratory 19 18 Rate Blood Pressure 150/108 114/89 O2 Sat by Pulse 95 96 Oximetry - Reevaluation(s) Reevaluation #1: 06/29/20 21:51 Patient did go immediately to CAT scan from the ambulance. A code stroke was initiated. Patient's original NIH score was approximate 6 Reevaluation #2: 06/29/20 21:51 (Was consult and did evaluate the CAT scan as well as the patient via the stroke robot. The patient was a TPA candidate and this was initiated no other intervention was indicated. Patient was not to be transferred Reevaluation #3: 06/29/20 21:52 Reevaluation after the CAT scan revealed a NIH seem to improve her about a 4. Critical Care Time Critical Care Time: Yes Total Critical Care Time: 45 Critical Care Time: Critical care time includes initial presentation with history physical labs discussed with paramedics. Multiple reevaluation the patient. Discussion with neurology on several occasions as well as discussion with the admitting physician admission orders review of old charting documentation of the above. Disposition Clinical Impression: Cerebrovascular accident (CVA) Disposition: ADMITTED IP TO THIS HOSP Condition: Fair Referrals: Justine Guillen MD [Primary Care Provider] - 1-2 days
[2020-06-29] MEDS: SODIUM CHLORIDE 0.9% 1,000 ML IV SCH (23:25)
[2020-06-30 00:03] LABS: Glucose,Whole Blood 257 mg/dL (75-99)
[2020-06-30] MEDS: SODIUM CHLORIDE 0.9% 1,000 ML IV SCH ×3 (00:45→18:31)
[2020-06-30] MEDS ORDERED: NALOXONE 0.4 MG/ML 1 ML VIAL IV PRN (01:48)
[2020-06-30 04:39] LABS: Basophils % (A) 1 %; Eosinophils # (A) 0.2 k/uL (0-0.7); Eosinophils % (A) 3 %; HGB 11.1 gm/dL (13.0-17.5); Lymphocytes # (A) 1.7 k/uL (1.0-4.8); Lymphocytes % (A) 21 %; MCH 28.9 pg (25.0-35.0); MCHC 34.5 g/dL (31.0-37.0); MCV 83.9 fL (80.0-100.0); Mean Platelet Volume 6.3; Monocytes # (A) 0.5 k/uL (0-1.0); Monocytes % (A) 6 %; Neutrophils # (A) 5.6 k/uL (1.3-7.7); Neutrophils % (A) 69 %; Platelet Count 310 k/uL (150-450); RBC 3.82 m/uL (4.30-5.90); RDW 13.7 % (11.5-15.5); WBC 8.1 k/uL (3.8-10.6)
[2020-06-30 04:49] LABS: Calcium 9.3 mg/dL (8.4-10.2); Potassium 4.5 mmol/L (3.5-5.1)
[2020-06-30 05:03] LABS: Partial Thromboplastin Time 23.3 sec (22.0-30.0); Prothrombin Time 10.5 sec (9.0-12.0)
[2020-06-30 07:11] LABS: Glucose,Whole Blood 198 mg/dL (75-99)
[2020-06-30 07:28] LABS: Appearance,Urine Clear (Clear); Bilirubin,Urine Negative (Negative); Blood,Urine Negative (Negative); Color,Urine Light Yellow; Glucose,Urine (UA) 4+ (Negative); Hyaline Casts,Urine 4 /lpf (0-2); Ketones,Urine Negative (Negative); Leukocyte Esterase,Urine Negative (Negative); Mucus,Urine Rare /hpf; Nitrite,Urine Negative (Negative); PH, Urine 5.5 (5.0-8.0); Protein,Urine 2+ (Negative); RBC,Urine <1 /hpf (0-5); Specific Gravity,Urine 1.029 (1.001-1.035); Urobilinogen,Urine <2.0 mg/dL (<2.0); WBC,Urine <1 /hpf (0-5)
--- NOTE | 2020-06-30 07:49 | XR ---
EXAMINATION TYPE: XR chest 1V DATE OF EXAM: 06/30/2020 COMPARISON: 06/29/2020 HISTORY: 49-year-old male confusion, altered mental status TECHNIQUE: Single frontal view of the chest is obtained. FINDINGS: Low lung volumes. Heart normal size. Aorta and pulmonary vasculature within normal limits. No consoli dation or pleural effusion. IMPRESSION: Some hypoventilatory changes. No acute process seen.
[2020-06-30] MEDS: PANTOPRAZOLE 40 MG/10 ML VIAL IV SCH (08:50)
[2020-06-30] MEDS: amLODIPine 5 MG TAB PO SCH ×2 (08:50→13:15)
[2020-06-30 11:35] LABS: Glucose,Whole Blood 303 mg/dL (75-99)
[2020-06-30] MEDS ORDERED: CYCLOBENZAPRINE 5 MG TAB PO PRN (12:08)
[2020-06-30] MEDS ORDERED: lisinopriL 5 MG TAB PO SCH (12:30)
--- NOTE | 2020-06-30 12:50 | P.HPIM ---
History of Present Illness H&P Date: 06/30/20 HISTORY OF PRESENT ILLNESS This is a 49-year-old male patient of Dr. Guillen with past medical history of subacute ischemic cerebral infarct in 2019 presenting with severe vertigo and started on Plavix, history of autonomic dysfunction related to diabetes, diabetes mellitus type 2 with gastro-paresis and diabetic neuropathy, hypertension, hyperlipidemia, chronic kidney disease stage III, hypothyroidism, benign prostatic hypertrophy, recurrent depression, gastroesophageal reflux disease. Patient states that he was sitting on a stool and fell off and had experienced left sided weakness of the upper and lower extremities along with a facial droop. In April of this year, patient underwent barium swallow with normal study. Patient presented to [facility] emergency center for evaluation. CAT scan of the brain showed no acute intracranial hemorrhage or midline shift. No sniffing change from prior CAT scan. CT angiogram of the head and neck revealed no significant stenosis and common or internal carotid arteries bilaterally. No significant stenosis in the [place]. No significant change. Chest x-ray shows no acute cardio pulmonary process. EKG was a sinus rhythm with LVH. Repeat chest x-ray reveals some hypoventilatory changes. No acute process. WBC 7.7, hemoglobin 11.4, platelet count 317. INR 1.0. Sodium 134, potassium 4.6, chloride 99, CO2 27, BUN 39 and creatinine 1.45. Blood sugar 275. Liver function tests normal. Troponin negative. CK 123. Triglycerides 319, cholesterol 190, LDL 87, HDL 39. Urinalysis clear, nitrite and leukoesterase negative. Protein 2+, glucose 4+. Coronavirus not detected. Patient was administered TPA per protocol and admitted into the intensive care unit, neurology consult. Initial NIH score 6 and following TPA NIH score 4. Patient has been seen by speech therapy and recommended ground foods with nectar thick liquids and aspiration precautions. Echocardiogram, MRI of the brain, hemoglobin A1c and ordered REVIEW OF SYSTEMS Constitutional: No fever, no chills, no night sweats. No weight change. No weakness, fatigue or lethargy. No daytime sleepiness. EENT: No headache. No blurred vision or double vision, no loss of vision. No loss of Hearing, no ringing in the ears, no dizziness. No nasal drainage or congestion. No epistaxis. No sore throat. Lungs: No shortness of breath, cough, no sputum production. No wheezing. Cardiovascular: No chest pain, no lower extremity edema. No palpitations. No paroxysmal nocturnal dyspnea. No orthopnea. No lightheadedness or dizziness. No syncopal episodes. Abdominal: No abdominal pain. No nausea, vomiting. No diarrhea. No constipation. No bloody or tarry stools.. No loss of appetite. Genitourinary: No dysuria, increased frequency, urgency. No urinary retention. Musculoskeletal: No myalgias. No muscle weakness, no gait dysfunction, no frequent falls. No back pain. No neck pain. Integumentary: No wounds, no lesions. No rash or pruritus. No unusual bruising. No change in hair or nails. Neurologic: No aphasia. No facial droop. No change in mentation. No head injury. No headache. No paralysis. No paresthesia. Psychiatric: No depression. No anxiety. No mood swings. Endocrine: No abnormal blood sugars. No weight change. No excessive sweating or thirst. No cold intolerance. FAMILY HISTORY Mother is alive in her 60s with history of diabetes. Patient is that he may contact with his father. Patient has 2 brothers and one has history of diabetes and one has no major medical problems. Patient does not have any sisters. He does not have any children. PHYSICAL EXAMINATION Gen: This is a 49-year-old male. Patient is resting in ICU bed and appears comfortable and in no acute distress. HEENT: Head is atraumatic, normocephalic. Pupils equal, round. Sclerae is anicteric. NECK: Supple. No JVD. No lymphadenopathy. No thyromegaly. LUNGS: Clear to auscultation. No wheezes or rhonchi. No intercostal retr actions. HEART: Regular rate and rhythm. No murmur. ABDOMEN: Soft. Bowel sounds are present. No masses. No tenderness. EXTREMITIES: No pedal edema. No calf tenderness. Dorsalis pedis +2 bilaterall y. NEUROLOGICAL: Patient is awake, alert and oriented x3. Decreased sensation to his face. Decrease reflexes on the left. Decreased sensation to the left lower extremity. Decreased range of motion to the left upper extremity. ASSESSMENT AND PLAN 1. Acute ischemic right sided stroke status post TPA. Patient admitted to the intensive care unit, consult with neurology. Continue neuro checks per protocol. Consult added for cardiology for PETRA to evaluate for embolic stroke. Patient does not have history of atrial fibrillation and previous carotid studies showed no stenosis. 2. History of subacute ischemic cerebral infarct in 2019 presented as severe vertigo and patient was placed on Plavix at that time. 3. Diabetes mellitus type 2, insulin requiring. Patient will be resumed on NovoLog mix 7030 30 units with breakfast and 20 with supper along with NovoLog scale. 4. Diabetes neuropathy. Continue gabapentin 4 mg twice daily. 5. Hypertension. Continue lisinopril 5 mg daily and amlodipine 5 mg daily. 6. Hyperlipidemia. Continue atorvastatin 40 mg at bedtime. 7. Diabetic gastroparesis and autonomic dysfunction, stable. 8. Chronic kidney disease stage III. 9. Benign prostatic hypertrophy. Continue Flomax or 0.4 mg daily. 10. Recurrent depression and generalized anxiety disorder. Continue venlafaxine 225 mg daily, Wellbutrin 150 mg twice daily, Abilify 10 mg at bedtime. 11. GI prophylaxis. Protonix. Patient will be admitted to the hospital for a minimum of 2 night stay. DISCHARGE PLAN To be determined. PT, OT, speech therapy following. Consult with Dr. Reilly for possible inpatient rehab. Impression and plan of care have been directed as dictated by the signing physician. Melvi Vieyra nurse practitioner acting as scribe for signing physician. Past Medical History Past Medical History: CVA/TIA, Diabetes Mellitus, GERD/Reflux, Hypertension, Sleep Apnea/CPAP/BIPAP Additional Past Medical History / Comment(s): neuropathy carpel tunnel borderline bipolar History of Any Multi-Drug Resistant Organisms: MRSA Date of last positivie culture/infection: 04/22/16 MDRO Source:: Right Hand Past Surgical History: Orthopedic Surgery Additional Past Surgical History / Comment(s): Colonscopy (B) eye cataract patino rg, (R) hand surgery Past Anesthesia/Blood Transfusion Reactions: No Reported Reaction Smoking Status: Never smoker - Past Family History Mother Family Medical History: Diabetes Mellitus, Renal Disease Additional Family Medical History / Comment(s): Mother is alive at age 61 with history of diabetes (wears insulin pump). Patient does not have any contact with his father. Brother(s) Additional Family Medical History / Comment(s): Patient has 2 brothers and one has history of diabetes and one has no major medical problems. Patient does not have any sisters. Patient does not have any children. Medications and Allergies Home Medications Medication Instructions Recorded Confirmed Type Atorvastatin [Lipitor] 40 mg PO HS 09/04/16 06/29/20 History Cyclobenzaprine [Flexeril] 5 mg PO TID PRN 03/13/19 06/29/20 History ARIPiprazole [Abilify] 10 mg PO HS 03/27/20 06/29/20 History Omeprazole 40 mg PO DAILY 03/27/20 06/29/20 History Potassium Chloride ER [K-Dur 10] 10 meq PO BID 03/27/20 06/29/20 History Venlafaxine HCl [Effexor XR] 225 mg PO DAILY 03/27/20 06/29/20 History buPROPion HCL [Wellbutrin SR] 150 mg PO BID 03/27/20 06/29/20 History Gabapentin 400 mg PO BID 06/29/20 06/29/20 History Insulin NPH Hum/Reg Insulin Hm 20 unit SQ AC-SUPPER 06/29/20 06/29/20 History [humuLIN 70/30 Kwikpen] Insulin NPH Hum/Reg Insulin Hm 30 unit SQ AC-BRKFST 06/29/20 06/29/20 History [humuLIN 70/30 Kwikpen] Methylphenidate HCl 20 mg PO BID 06/29/20 06/29/20 History Silodosin [Rapaflo] 4 mg PO DAILY 06/29/20 06/29/20 History lisinopriL [Zestril] 5 mg PO DAILY 06/29/20 06/29/20 History Allergies Allergy/AdvReac Type Severity Reaction Status Date / Time lactose AdvReac Nausea & Verified 06/29/20 20:52 Vomiting & Diarrhea Physical Exam Vitals: Vital Signs Temp Pulse Pulse Resp BP BP Pulse Ox 06/30/20 10:00 90 26 H 154/108 94 L 06/30/20 09:00 87 15 146/97 94 L 06/30/20 08:30 85 17 178/103 93 L 06/30/20 08:15 15 06/30/20 08:00 98.2 F 83 18 140/94 94 L 06/30/20 07:00 84 14 174/105 93 L 06/30/20 06:30 81 16 165/94 92 L 06/30/20 06:00 86 20 161/100 96 06/30/20 05:30 82 16 149/89 95 06/30/20 05:00 83 15 144/101 95 06/30/20 04:30 98.2 F 84 17 187/93 97 06/30/20 04:00 87 21 151/99 98 06/30/20 03:30 85 18 163/98 96 06/30/20 03:00 84 16 150/95 95 06/30/20 02:30 83 15 167/106 95 06/30/20 02:00 86 16 153/85 94 L 06/30/20 01:30 77 15 158/75 93 L 06/30/20 01:00 79 17 179/107 95 06/30/20 00:30 85 16 162/106 95 06/30/20 00:15 98.1 F 82 15 159/103 96 06/30/20 00:05 98.1 F 81 20 162/106 98 06/29/20 23:45 98.7 F 92 17 132/87 99 06/29/20 23:15 98.3 F 89 17 148/89 97 06/29/20 22:45 98.3 F 89 19 150/90 98 06/29/20 22:15 98.6 F 89 19 129/73 98 06/29/20 21:45 98.7 F 84 17 113/64 97 06/29/20 21:30 98.7 F 87 18 128/77 98 06/29/20 21:15 98.6 F 89 18 130/89 98 06/29/20 21:00 98.5 F 87 17 137/90 97 06/29/20 20:45 98.4 F 89 17 124/86 98 06/29/20 20:30 98.2 F 87 19 136/92 97 06/29/20 20:15 98.3 F 92 18 130/87 96 06/29/20 20:00 98.4 F 89 17 118/92 97 06/29/20 19:49 92 18 114/89 96 06/29/20 19:45 98.2 F 90 18 134/86 96 06/29/20 19:32 98.8 F 93 19 150/108 95 Intake and Output 06/29/20 06/30/20 06/30/20 22:59 06:59 14:59 Intake Total 700 400 Output Total 625 455 Balance 75 -55 Intake: IV 700 400 0.9 NaCl- 700 100 Sodium Chloride 0.9% 1, 300 000 ml @ 100 mls/hr IV . Q10H [facility] Rx#:[id number] Output: Urine 625 455 Other: Voiding Method Urinal Indwelling Catheter Weight 96.615 kg 98.2 kg Results CBC & Chem 7: 06/30/20 04:07 06/30/20 04:07 Labs: Abnormal Lab Results - Last 24 Hours (Table) 06/29/20 06/29/20 06/30/20 Range/Units 19:34 19:34 00:01 RBC 3.97 L (4.30-5.90) m/uL Hgb 11.4 L (13.0-17.5) gm/dL Hct 32.9 L (39.0-53.0) % Sodium 134 L (137-145) mmol/L BUN 39 H (9-20) mg/dL Creatinine 1.45 H (0.66-1.25) mg/dL Glucose 275 H (74-99) mg/dL POC Glucose (mg/dL) 257 H (75-99) mg/dL Total Protein 5.6 L (6.3-8.2) g/dL Albumin 3.3 L (3.5-5.0) g/dL Triglycerides (<150) mg/dL HDL Cholesterol (40-60) mg/dL Urine Protein (Negative) Urine Glucose (UA) (Negative) Hyaline Casts (0-2) /lpf Urine Mucus (None) /hpf 06/30/20 06/30/20 06/30/20 Range/Units 04:07 04:07 06:00 RBC 3.82 L (4.30-5.90) m/uL Hgb 11.1 L (13.0-17.5) gm/dL Hct 32.0 L (39.0-53.0) % Sodium (137-145) mmol/L BUN 39 H (9-20) mg/dL Creatinine 1.58 H (0.66-1.25) mg/dL Glucose 180 H (74-99) mg/dL POC Glucose (mg/dL) (75-99) mg/dL Total Protein (6.3-8.2) g/dL Albumin (3.5-5.0) g/dL Triglycerides 319 H (<150) mg/dL HDL Cholesterol 39 L (40-60) mg/dL Urine Protein 2+ H (Negative) Urine Glucose (UA) 4+ H (Negative) Hyaline Casts 4 H (0-2) /lpf Urine Mucus Rare H (None) /hpf 06/30/20 Range/Units 07:08 RBC (4.30-5.90) m/uL Hgb (13.0-17.5) gm/dL Hct (39.0-53.0) % Sodium (137-145) mmol/L BUN (9-20) mg/dL Creatinine (0.66-1.25) mg/dL Glucose (74-99) mg/dL POC Glucose (mg/dL) 198 H (75-99) mg/dL Total Protein (6.3-8.2) g/dL Albumin (3.5-5.0) g/dL Triglycerides (<150) mg/dL HDL Cholesterol (40-60) mg/dL Urine Protein (Negative) Urine Glucose (UA) (Negative) Hyaline Casts (0-2) /lpf Urine Mucus (None) /hpf Thrombosis Risk Factor Assmnt - Choose All That Apply Any of the Below Risk Factors Present?: Yes Each Factor Represents 1 point: Age 41-60 years, Obesity (BMI >25) Other Risk Factors: No Other congenital or acquired thrombophilia - If yes, enter type in comment: No Thrombosis Risk Factor Assessment Total Risk Factor Score: 2 Thrombosis Risk Factor Assessment Level: Low Risk
--- NOTE | 2020-06-30 12:58 | P.CNNES ---
History of Present Illness Consult date: 06/30/20 Requesting physician: Glenroy Herbert Reason for Consult: CVA, status post TPA History of Present Illness: Patient is a 49-year-old male with history of hypertension, diabetes, previous history of CVA came to the hospital yesterday at 7:20 PM came to the hospital for sudden onset of left facial droop, left upper and left lower extremity weakness and he fell from a stool he was on. Patient's mother called the ambulance and he was brought to the hospital. Vital signs on arrival blood pressure 150/108, pulse rate [address] head showed no acute intracranial hemorrhage or midline shift. No significant change from prior CT. CTA of head and neck showed no significant stenosis in common or internal carotid arteries bilaterally. No significant stenosis in the [place]. No significant change from prior. Chest x- ray showed no acute cardiopulmonary process. EKG shows normal sinus rhythm. Vo ltage criteria for LVH, ST elevation, consider early repolarization, pericarditis or injury. Patient received TPA in a timely manner. Initial NIH stroke scale was reported as 6, which improved to 4 after the TPA. Patient has previous history of diabetes, neuropathy, CTS. Patient's MRI of the brain previously from 03/15/2019 showed a small right internal capsular infarct. Patient never smoked. Does not drink alcohol. He has diabetes for last 20 years. Also has neuropathy in the feet. Patient currently on Lipitor 40 mg, Effexor XR 25 mg, Wellbutrin SR 150 mg twice a day Abilify 10 mg, Ritalin 20 mg twice a day insulin, lisinopril 5 mg and gabapentin 400 mg twice a day. Patient was not taking any antiplatelet medication at home. Review of Systems Complete left hemiplegia. No sensory loss. Patient has slurred speech. Denies any chest pain, double vision, loss of vision. Denies abdominal pain nausea vomiting diarrhea. Past Medical History Past Medical History: CVA/TIA, Diabetes Mellitus, GERD/Reflux, Hypertension, Sleep Apnea/CPAP/BIPAP Additional Past Medical History / Comment(s): neuropathy carpel tunnel borderline bipolar History of Any Multi-Drug Resistant Organisms: MRSA Date of last positivie culture/infection: 04/22/16 MDRO Source:: Right Hand Past Surgical History: Orthopedic Surgery Additional Past Surgical History / Comment(s): Colonscopy (B) eye cataract surg, (R) hand surgery Past Anesthesia/Blood Transfusion Reactions: No Reported Reaction Smoking Status: Never smoker - Past Family History Mother Family Medical History: Diabetes Mellitus, Renal Disease Additional Family Medical History / Comment(s): Mother is alive at age 61 with history of diabetes (wears insulin pump). Patient does not have any contact with his father. Brother(s) Additional Family Medical History / Comment(s): Patient has 2 brothers and one has history of diabetes and one has no major medical problems. Patient does not have any sisters. Patient does not have any children. Medications and Allergies Home Medications Medication Instructions Recorded Confirmed Type Atorvastatin [Lipitor] 40 mg PO HS 09/04/16 06/29/20 History Cyclobenzaprine [Flexeril] 5 mg PO TID PRN 03/13/19 06/29/20 History ARIPiprazole [Abilify] 10 mg PO HS 03/27/20 06/29/20 History Omeprazole 40 mg PO DAILY 03/27/20 06/29/20 History Potassium Chloride ER [K-Dur 10] 10 meq PO BID 03/27/20 06/29/20 History Venlafaxine HCl [Effexor XR] 225 mg PO DAILY 03/27/20 06/29/20 History buPROPion HCL [Wellbutrin SR] 150 mg PO BID 03/27/20 06/29/20 History Gabapentin 400 mg PO BID 06/29/20 06/29/20 History Insulin NPH Hum/Reg Insulin Hm 20 unit SQ AC-SUPPER 06/29/20 06/29/20 History [humuLIN 70/30 Kwikpen] Insulin NPH Hum/Reg Insulin Hm 30 unit SQ AC-BRKFST 06/29/20 06/29/20 History [humuLIN 70/30 Kwikpen] Methylphenidate HCl 20 mg PO BID 06/29/20 06/29/20 History Silodosin [Rapaflo] 4 mg PO DAILY 06/29/20 06/29/20 History lisinopriL [Zestril] 5 mg PO DAILY 06/29/20 06/29/20 History Hydrocodone/Acetaminophen [[place] 1 tab PO TID 06/30/20 06/30/20 History 7.5-325] Allergies Allergy/AdvReac Type Severity Reaction Status Date / Time lactose AdvReac Nausea & Verified 03/11/21 20:52 Vomiting & Diarrhea Physical Examination - Vital Signs Vital Signs: Vital Signs Temp Pulse Pulse Resp BP BP Pulse Ox 06/30/20 07:00 84 14 174/105 93 L 06/30/20 06:30 81 16 165/94 92 L 06/30/20 06:00 86 20 161/100 96 06/30/20 05:30 82 16 149/89 95 06/30/20 05:00 83 15 144/101 95 06/30/20 04:30 98.2 F 84 17 187/93 97 06/30/20 04:00 87 21 151/99 98 06/30/20 03:30 85 18 163/98 96 06/30/20 03:00 84 16 150/95 95 06/30/20 02:30 83 15 167/106 95 06/30/20 02:00 86 16 153/85 94 L 06/30/20 01:30 77 15 158/75 93 L 06/30/20 01:00 79 17 179/107 95 06/30/20 00:30 85 16 162/106 95 06/30/20 00:15 98.1 F 82 15 159/103 96 06/30/20 00:05 98.1 F 81 20 162/106 98 06/29/20 23:45 98.7 F 92 17 132/87 99 06/29/20 23:15 98.3 F 89 17 148/89 97 06/29/20 22:45 98.3 F 89 19 150/90 98 06/29/20 22:15 98.6 F 89 19 129/73 98 06/29/20 21:45 98.7 F 84 17 113/64 97 06/29/20 21:30 98.7 F 87 18 128/77 98 06/29/20 21:15 98.6 F 89 18 130/89 98 06/29/20 21:00 98.5 F 87 17 137/90 97 06/29/20 20:45 98.4 F 89 17 124/86 98 06/29/20 20:30 98.2 F 87 19 136/92 97 06/29/20 20:15 98.3 F 92 18 130/87 96 06/29/20 20:00 98.4 F 89 17 118/92 97 06/29/20 19:49 92 18 114/89 96 06/29/20 19:45 98.2 F 90 18 134/86 96 06/29/20 19:32 98.8 F 93 19 150/108 95 Intake and Output 06/29/20 06/30/20 06/30/20 22:59 06:59 14:59 Intake Total 700 200 Output Total 625 385 Balance 75 -185 Intake: IV 700 200 0.9 NaCl- 700 100 Sodium Chloride 0.9% 1, 100 000 ml @ 100 mls/hr IV . Q10H [facility] Rx#:[id number] Output: Urine 625 385 Other: Voiding Method Urinal Weight 96.615 kg 98.2 kg On examination patient is a middle aged male, in no acute distress. He is alert and awake, oriented to time place and person. Speech is mildly dysarthric but no aphasia. Attention, concentration and fund of knowledge adequate. On cranial examination pupils are round and reactive to light, visual márquez are full on confrontation. Extraocular muscles are intact with no nystagmus. Face is weak on the left side, central type. Tongue protrudes to the midline. Palatal elevation sensation normal, hearing and shoulder shrug normal. Facial sensations normal. On muscle strength testing patient is completely flaccid in the left arm and left leg. He has normal strength in the right arm and right leg. Sensations are equal, with no neglect on double simultaneous stimulation. No ataxia for [id number] testing on the right, cannot perform on the left. Tone is decreased in the left arm and left leg. Bulk of muscles are normal. Reflexes are diminished to absent, but has Babinski on the left side whereas downgoing plantar on the right. Gait cannot be checked. On general exam and there is no carotid bruit or murmur, peripheral pulses are present. Abdomen soft nontender. Chest is clear. Results - Laboratory Findings CBC and BMP: 06/30/20 04:07 06/30/20 04:07 Abnormal Lab Findings: Abnormal Labs 06/29/20 06/29/20 06/30/20 19:34 19:34 00:01 RBC 3.97 L Hgb 11.4 L Hct 32.9 L Sodium 134 L BUN 39 H Creatinine 1.45 H Glucose 275 H POC Glucose (mg/dL) 257 H Total Protein 5.6 L Albumin 3.3 L Triglycerides HDL Cholesterol Urine Protein Urine Glucose (UA) Hyaline Casts Urine Mucus 06/30/20 06/30/20 06/30/20 04:07 04:07 06:00 RBC 3.82 L Hgb 11.1 L Hct 32.0 L Sodium BUN 39 H Creatinine 1.58 H Glucose 180 H POC Glucose (mg/dL) Total Protein Albumin Triglycerides 319 H HDL Cholesterol 39 L Urine Protein 2+ H Urine Glucose (UA) 4+ H Hyaline Casts 4 H Urine Mucus Rare H 06/30/20 07:08 RBC Hgb Hct Sodium BUN Creatinine Glucose POC Glucose (mg/dL) 198 H Total Protein Albumin Triglycerides HDL Cholesterol Urine Protein Urine Glucose (UA) Hyaline Casts Urine Mucus Assessment and Plan Assessment: * Acute complete left hemiparesis, with sparing of sensory pathways. Likely l acunar stroke in the internal capsule from small vessel disease. * Hypertension * Diabetes * Bipolar disorder Plan: * Patient has acute left hemiplegia. Patient's NIH stroke scale at this time is 11 (4 left upper limb, 4 left lower limb, 1 dysarthria, 2 facial droop). * Stat MRI of the brain to evaluate for CVA, rule out any hemorrhagic conversion. Patient's blood pressure at this time was 165/96. * 2-D echo, hemoglobin A1c, fasting lipid panel. * No antiplatelets or anticoagulants for 24 hours post-TPA. * Continue close neuro checks, as per protocol. * Dr. Yao will cover neurology service over the weekend.
--- NOTE | 2020-06-30 13:00 | ECHOF ---
Referral Reason:stroke MEASUREMENTS -------- HEIGHT: 172.7 cm WEIGHT: 98.0 kg BP: IVSd: 1.3 cm (0.6 - 1.1) LVIDd: 3.5 cm (3.9 - 5.3) LVPWd: 1.5 cm (0.6 - 1.1) IVSs: 1.5 cm LVIDs: 2.2 cm LVPWs: 2.1 cm LAESV Index (A-L): 15.18 ml/m Ao Diam: 3.0 cm (2.0 - 3.7) AV Cusp: 1.8 cm (1.5 - 2.6) LA Diam: 3.2 cm (2.7 - 3.8) MV EXCURSION: 14.577 mm (> 18.000) MV EF SLOPE: 104 mm/s (70 - 150) EPSS: 1.1 cm MV E Kalen: 0.75 m/s MV DecT: 161 ms MV A [place]: 0.90 m/s MV E/A Ratio: 0.83 RAP: 5.00 mmHg RVSP: 13.79 mmHg FINDINGS -------- Sinus rhythm. This was a technically adequate study. The left ventricular size is normal. There is mild concentric left ventricular hypertrophy. Overa ll left ventricular systolic function is normal with, an EF between 55 - 60 %. The diastolic fillin g pattern is normal for the age of the patient 11.98. The right ventricle is normal in size. Normal LA size by volume 22+/-6 ml/m2. The right atrial size is normal. Contrast study was performed with 1 iv injection of 8 ccs of agitated normal saline at rest. Interatrial and interventricular septum intact. The aortic valve is trileaflet, and appears structurally normal. No aortic stenosis or regurgitation. The mitral valve is normal. There is trace to mild mitral regurgitation. The tricuspid valve appears structurally normal. Trace tricuspid regurgitation present. Right eileen tricular systolic pressure is normal at < 35 mmHg. There is no pulmonic regurgitation present. The aortic root size is normal. IVC Not well visulized. There is no pericardial effusion. CONCLUSIONS -------- 1. There is mild concentric left ventricular hypertrophy. 2. Overall left ventricular systolic function is normal with, an EF between 55 - 60 %. 3. Normal LA size by volume 22+/-6 ml/m2. 4. Contrast study was performed with 1 iv injection of 8 ccs of agitated normal saline at rest. 5. Interatrial and interventricular septum intact. 6. The aortic valve is trileaflet, and appears structurally normal. No aortic stenosis or regurgitati on. 7. There is trace to mild mitral regurgitation. 8. Trace tricuspid regurgitation present. 9. There is no pericardial effusion. MATHEMATICIAN: Noris Thompson RDCS
[2020-06-30] MEDS: INSULIN ASPART (NovoLOG) 100 UNIT/ML VIAL SQ SCH ×3 (13:17→20:43)
--- NOTE | 2020-06-30 13:58 | P.CONS ---
History of Present Illness - Chief Complaint Gait disturbance, left hemiplegia - History of Present Illness I had the opportunity see patient for inpatient rehab consultation with regard to gait disturbance. Patient admitted to [facility] June 29 acute onset left- sided weakness, noted by mother. Seen by neurology, Dr. son concurs with diagnosis stroke. Initial head CT negative. Angiogram CT negative vascular but demonstrates grade 1 retrolisthesis C5 and grade 1 anterolisthesis C7. Chest x- ray negative. Has started therapies. PT reports minimal assistance for bed mobility and two-person assistance to transfer and stand. OT reports moderate assistance for upper dressing and maximal assistance for lower dressing and bathing. Total assistance for toileting and two-person assistance for transfer. Speech therapy assess swallow and recommend pured, chopped, thin liquid. Previous functional history as elicited from patient: 49-year-old right-handed white male who is single lives in a first-floor apartment with mother. Mother does the cooking, laundry, driving. Patient unemployed. He describes independent with standing shower and gait with occasional needle standard cane or a roller walker previous. PMD Dr. Guillen. Denies tobacco or alcohol. Family history of mother with diabetes. Review of Systems Review of systems: ENT: Denies sneezes or discharge. Eyes: Denies discharge or photophobia. Cardiac: Denies chest pain or palpitation. Pulmonary: Denies cough or shortness of breath. Gastrointestinal: Denies nausea, emesis, constipation, diarrhea. Genitourinary: Denies discharge or frequency. Musculoskeletal: Denies muscle or bone aches. Neurologic: Left-sided weakness and numbness. Endocrine: Denies shakes or sweats. Oncology: Denies cancers. Dermatologic: Denies rash, itching, pruritus. ALLERGY/immunology: Denies sneezes, rashes. Past Medical History Past Medical History: CVA/TIA, Diabetes Mellitus, GERD/Reflux, Hypertension, Sleep Apnea/CPAP/BIPAP Additional Past Medical History / Comment(s): neuropathy carpel tunnel borderline bipolar History of Any Multi-Drug Resistant Organisms: MRSA Year Discovered:: 04/22/16 MDRO Source:: Right Hand Past Surgical History: Orthopedic Surgery Additional Past Surgical History / Comment(s): Colonscopy (B) eye cataract surg, (R) hand surgery Past Anesthesia/Blood Transfusion Reactions: No Reported Reaction Smoking Status: Never smoker - Past Family History Mother Family Medical History: Diabetes Mellitus, Renal Disease Additional Family Medical History / Comment(s): Mother is alive at age 61 with history of diabetes (wears insulin pump). Patient does not have any contact with his father. Brother(s) Additional Family Medical History / Comment(s): Patient has 2 brothers and one has history of diabetes and one has no major medical problems. Patient does not have any sisters. Patient does not have any children. Medications and Allergies Home Medications Medication Instructions Recorded Confirmed Type Atorvastatin [Lipitor] 40 mg PO HS 09/04/16 06/29/20 History Cyclobenzaprine [Flexeril] 5 mg PO TID PRN 03/13/19 06/29/20 History ARIPiprazole [Abilify] 10 mg PO HS 03/27/20 06/29/20 History Omeprazole 40 mg PO DAILY 03/27/20 06/29/20 History Potassium Chloride ER [K-Dur 10] 10 meq PO BID 03/27/20 06/29/20 History Venlafaxine HCl [Effexor XR] 225 mg PO DAILY 03/27/20 06/29/20 History buPROPion HCL [Wellbutrin SR] 150 mg PO BID 03/27/20 06/29/20 History Gabapentin 400 mg PO BID 06/29/20 06/29/20 History Insulin NPH Hum/Reg Insulin Hm 20 unit SQ AC-SUPPER 06/29/20 06/29/20 History [humuLIN 70/30 Kwikpen] Insulin NPH Hum/Reg Insulin Hm 30 unit SQ AC-BRKFST 06/29/20 06/29/20 History [humuLIN 70/30 Kwikpen] Methylphenidate HCl 20 mg PO BID 06/29/20 06/29/20 History Silodosin [Rapaflo] 4 mg PO DAILY 06/29/20 06/29/20 History lisinopriL [Zestril] 5 mg PO DAILY 06/29/20 06/29/20 History Allergies Allergy/AdvReac Type Severity Reaction Status Date / Time lactose AdvReac Nausea & Verified 06/29/20 20:52 Vomiting & Diarrhea Physical Exam Vitals: Vital Signs Temp Pulse Pulse Resp BP BP Pulse Ox 06/30/20 13:00 88 15 159/102 93 L 06/30/20 12:00 96.9 F L 85 16 174/91 95 06/30/20 11:00 90 19 169/100 92 L 06/30/20 10:00 90 26 H 154/108 94 L 06/30/20 09:00 87 15 146/97 94 L 06/30/20 08:30 85 17 178/103 93 L 06/30/20 08:15 15 06/30/20 08:00 98.2 F 83 18 140/94 94 L 06/30/20 07:00 84 14 174/105 93 L 06/30/20 06:30 81 16 165/94 92 L 06/30/20 06:00 86 20 161/100 96 06/30/20 05:30 82 16 149/89 95 06/30/20 05:00 83 15 144/101 95 06/30/20 04:30 98.2 F 84 17 187/93 97 06/30/20 04:00 87 21 151/99 98 06/30/20 03:30 85 18 163/98 96 06/30/20 03:00 84 16 150/95 95 06/30/20 02:30 83 15 167/106 95 06/30/20 02:00 86 16 153/85 94 L 06/30/20 01:30 77 15 158/75 93 L 06/30/20 01:00 79 17 179/107 95 06/30/20 00:30 85 16 162/106 95 06/30/20 00:15 98.1 F 82 15 159/103 96 06/30/20 00:05 98.1 F 81 20 162/106 98 06/29/20 23:45 98.7 F 92 17 132/87 99 06/29/20 23:15 98.3 F 89 17 148/89 97 06/29/20 22:45 98.3 F 89 19 150/90 98 06/29/20 22:15 98.6 F 89 19 129/73 98 06/29/20 21:45 98.7 F 84 17 113/64 97 06/29/20 21:30 98.7 F 87 18 128/77 98 06/29/20 21:15 98.6 F 89 18 130/89 98 06/29/20 21:00 98.5 F 87 17 137/90 97 06/29/20 20:45 98.4 F 89 17 124/86 98 03/11/21 20:30 98.2 F 87 19 136/92 97 06/29/20 20:15 98.3 F 92 18 130/87 96 06/29/20 20:00 98.4 F 89 17 118/92 97 06/29/20 19:49 92 18 114/89 96 06/29/20 19:45 98.2 F 90 18 134/86 96 06/29/20 19:32 98.8 F 93 19 150/108 95 Intake and Output 06/29/20 06/30/20 06/30/20 22:59 06:59 14:59 Intake Total 700 700 Output Total 625 690 Balance 75 10 Intake: IV 700 700 0.9 NaCl- 700 100 Sodium Chloride 0.9% 1, 600 000 ml @ 100 mls/hr IV . Q10H [facility] Rx#:[id number] Output: Urine 625 690 Other: Voiding Method Urinal Indwelling Catheter Weight 96.615 kg 98.2 kg Skin: Good color, texture, turgor. General: Medium build and comfortable appearance. Head: Normocephalic, atraumatic. Eyes: Symmetric. Pupils equal round. Ears: Symmetric. Hearing within normal limits. Mouth: Clear. Neck: Supple. Carotid without bruit. Cardiac: Regular rate and rhythm. Lungs: Clear anteriorly and posteriorly. Abdomen: Soft active nontender. Extremities: Normal tone. Neurological: Mental status: Alert, cooperative, pleasant. Cranial nerves: Symmetric facial tone and trapezius. Motor: Normal strength and isolation right side. Left side plegic.. Sensation: Intact right side and depressed left side. DTRs: Symmetric and equal throughout. Mobility: Requires physical assist for bed mobility. Results CBC & Chem 7: 06/30/20 04:07 06/30/20 04:07 Labs: Abnormal Lab Results - Last 24 Hours (Table) 06/29/20 06/29/20 06/30/20 Range/Units 19:34 19:34 00:01 RBC 3.97 L (4.30-5.90) m/uL Hgb 11.4 L (13.0-17.5) gm/dL Hct 32.9 L (39.0-53.0) % Sodium 134 L (137-145) mmol/L BUN 39 H (9-20) mg/dL Creatinine 1.45 H (0.66-1.25) mg/dL Glucose 275 H (74-99) mg/dL POC Glucose (mg/dL) 257 H (75-99) mg/dL Total Protein 5.6 L (6.3-8.2) g/dL Albumin 3.3 L (3.5-5.0) g/dL Triglycerides (<150) mg/dL HDL Cholesterol (40-60) mg/dL Urine Protein (Negative) Urine Glucose (UA) (Negative) Hyaline Casts (0-2) /lpf Urine Mucus (None) /hpf 06/30/20 06/30/20 06/30/20 Range/Units 04:07 04:07 06:00 RBC 3.82 L (4.30-5.90) m/uL Hgb 11.1 L (13.0-17.5) gm/dL Hct 32.0 L (39.0-53.0) % Sodium (137-145) mmol/L BUN 39 H (9-20) mg/dL Creatinine 1.58 H (0.66-1.25) mg/dL Glucose 180 H (74-99) mg/dL POC Glucose (mg/dL) (75-99) mg/dL Total Protein (6.3-8.2) g/dL Albumin (3.5-5.0) g/dL Triglycerides 319 H (<150) mg/dL HDL Cholesterol 39 L (40-60) mg/dL Urine Protein 2+ H (Negative) Urine Glucose (UA) 4+ H (Negative) Hyaline Casts 4 H (0-2) /lpf Urine Mucus Rare H (None) /hpf 06/30/20 06/30/20 Range/Units 07:08 11:33 RBC (4.30-5.90) m/uL Hgb (13.0-17.5) gm/dL Hct (39.0-53.0) % Sodium (137-145) mmol/L BUN (9-20) mg/dL Creatinine (0.66-1.25) mg/dL Glucose (74-99) mg/dL POC Glucose (mg/dL) 198 H 303 H (75-99) mg/dL Total Protein (6.3-8.2) g/dL Albumin (3.5-5.0) g/dL Triglycerides (<150) mg/dL HDL Cholesterol (40-60) mg/dL Urine Protein (Negative) Urine Glucose (UA) (Negative) Hyaline Casts (0-2) /lpf Urine Mucus (None) /hpf Assessment and Plan (1) Cerebrovascular accident (CVA) Current Visit: Yes Status: Acute Code(s): I63.9 - CEREBRAL INFARCTION, UNSPECIFIED SNOMED Code(s): 432480586 (2) EMELI (acute kidney injury) Current Visit: No Status: Acute Code(s): N17.9 - ACUTE KIDNEY FAILURE, UNSPECIFIED SNOMED Code(s): 75057027 (3) Hyperglycemia Current Visit: No Status: Acute Code(s): R73.9 - HYPERGLYCEMIA, UNSPECIFIED SNOMED Code(s): 77948331 Plan: Impression: 1. Gait disturbance due to stroke result in left ring plegia. 2. Acute kidney injury. 3. Hyperglycemia. 4. Hypertension. 5. Dyslipidemia. 6. Diabetes. 7. Sleep apnea. 8. Cervical disc disease. 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 I do not believe that these will resolve prior to discharge from acute stay. Have di scussed possible inpatient rehab with patient, which seems likely, and he is agreeable.
--- NOTE | 2020-06-30 14:20 | P.CNPUL ---
History of Present Illness Consult date: 06/30/20 Requesting physician: Kera Ferrera Reason for consult: other (ICU management) Chief complaint: Left facial droop and left upper and left lower extremity weakness History of present illness: This is a 49-year-old white male with history of hypertension, type 2 diabetes, previous history of CVA, obstructive sleep apnea syndrome, patient presented last night to the ER around 7:20 PM with acute sudden onset of left facial droop, left upper and left lower extremity weakness. Upon arrival to the ER, CT of the head showed no intracranial hemorrhage or midline shift. CT angiogram of the head and neck showed no significant stenosis in the common or internal carotid arteries. Chest x-ray showed no cardiopulmonary process. EKG was basically unremarkable. Patient received TPA at timely manner and his initial NIH stroke scale was reported as 6 improved to 4 after the TPA. Considering the patient received TPA, he was admitted to the ICU. Overnight the patient was relatively stable, the pressure is a bit elevated and patient was placed on amlodipine. Patient is doing fairly well this morning, however he continues to have left upper extremity weakness and left lower extremity weakness. Patient was seen by speech therapy and recommended placement on neck that are thick liquids to avoid aspiration. Patient was also seen by Dr. Reilly for potential rehab. Placement Review of Systems Constitutional: Negative EENT: Left facial droop on initial presentation. Otherwise negative Lungs: Negative Cardiovascular: Negative Abdominal: Negative Genitourinary: Negative Musculoskeletal: Negative except for left sided weakness involving left upper extremity and left lower extremity as noted in HPI.. Integumentary: Negative Neurologic: As noted in HPI. Psychiatric: Negative Endocrine: History of diabetes. Patient is asymptomatic. Hematologic: No clotting bleeding or bruising Past Medical History Past Medical History: CVA/TIA, Diabetes Mellitus, GERD/Reflux, Hypertension, Sleep Apnea/CPAP/BIPAP Additional Past Medical History / Comment(s): neuropathy carpel tunnel borderline bipolar History of Any Multi-Drug Resistant Organisms: MRSA Date of last positivie culture/infection: 04/22/16 MDRO Source:: Right Hand Past Surgical History: Orthopedic Surgery Additional Past Surgical History / Comment(s): Colonscopy (B) eye cataract surg, (R) hand surgery Past Anesthesia/Blood Transfusion Reactions: No Reported Reaction Smoking Status: Never smoker - Past Family History Mother Family Medical History: Diabetes Mellitus, Renal Disease Additional Family Medical History / Comment(s): Mother is alive at age 61 with history of diabetes (wears insulin pump). Patient does not have any contact with his father. Brother(s) Additional Family Medical History / Comment(s): Patient has 2 brothers and one has history of diabetes and one has no major medical problems. Patient does not have any sisters. Patient does not have any children. Medications and Allergies Home Medications Medication Instructions Recorded Confirmed Type Atorvastatin [Lipitor] 40 mg PO HS 09/04/16 06/29/20 History Cyclobenzaprine [Flexeril] 5 mg PO TID PRN 03/13/19 06/29/20 History ARIPiprazole [Abilify] 10 mg PO HS 03/27/20 06/29/20 History Omeprazole 40 mg PO DAILY 03/27/20 06/29/20 History Potassium Chloride ER [K-Dur 10] 10 meq PO BID 03/27/20 06/29/20 History Venlafaxine HCl [Effexor XR] 225 mg PO DAILY 03/27/20 06/29/20 History buPROPion HCL [Wellbutrin SR] 150 mg PO BID 03/27/20 06/29/20 History Gabapentin 400 mg PO BID 06/29/20 06/29/20 History Insulin NPH Hum/Reg Insulin Hm 20 unit SQ AC-SUPPER 06/29/20 06/29/20 History [humuLIN 70/30 Kwikpen] Insulin NPH Hum/Reg Insulin Hm 30 unit SQ AC-BRKFST 06/29/20 06/29/20 History [humuLIN 70/30 Kwikpen] Methylphenidate HCl 20 mg PO BID 06/29/20 06/29/20 History Silodosin [Rapaflo] 4 mg PO DAILY 06/29/20 06/29/20 History lisinopriL [Zestril] 5 mg PO DAILY 06/29/20 06/29/20 History Allergies Allergy/AdvReac Type Severity Reaction Status Date / Time lactose AdvReac Nausea & Verified 06/29/20 20:52 Vomiting & Diarrhea Physical Exam Vitals: Vital Signs Temp Pulse Pulse Resp BP BP Pulse Ox 06/30/20 13:00 88 15 159/102 93 L 06/30/20 12:00 96.9 F L 85 16 174/91 95 06/30/20 11:00 90 19 169/100 92 L 06/30/20 10:00 90 26 H 154/108 94 L 06/30/20 09:00 87 15 146/97 94 L 06/30/20 08:30 85 17 178/103 93 L 06/30/20 08:15 15 06/30/20 08:00 98.2 F 83 18 140/94 94 L 06/30/20 07:00 84 14 174/105 93 L 06/30/20 06:30 81 16 165/94 92 L 06/30/20 06:00 86 20 161/100 96 06/30/20 05:30 82 16 149/89 95 06/30/20 05:00 83 15 144/101 95 06/30/20 04:30 98.2 F 84 17 187/93 97 06/30/20 04:00 87 21 151/99 98 06/30/20 03:30 85 18 163/98 96 06/30/20 03:00 84 16 150/95 95 06/30/20 02:30 83 15 167/106 95 06/30/20 02:00 86 16 153/85 94 L 06/30/20 01:30 77 15 158/75 93 L 06/30/20 01:00 79 17 179/107 95 06/30/20 00:30 85 16 162/106 95 06/30/20 00:15 98.1 F 82 15 159/103 96 06/30/20 00:05 98.1 F 81 20 162/106 98 06/29/20 23:45 98.7 F 92 17 132/87 99 06/29/20 23:15 98.3 F 89 17 148/89 97 06/29/20 22:45 98.3 F 89 19 150/90 98 06/29/20 22:15 98.6 F 89 19 129/73 98 06/29/20 21:45 98.7 F 84 17 113/64 97 06/29/20 21:30 98.7 F 87 18 128/77 98 06/29/20 21:15 98.6 F 89 18 130/89 98 06/29/20 21:00 98.5 F 87 17 137/90 97 06/29/20 20:45 98.4 F 89 17 124/86 98 06/29/20 20:30 98.2 F 87 19 136/92 97 06/29/20 20:15 98.3 F 92 18 130/87 96 06/29/20 20:00 98.4 F 89 17 118/92 97 06/29/20 19:49 92 18 114/89 96 06/29/20 19:45 98.2 F 90 18 134/86 96 06/29/20 19:32 98.8 F 93 19 150/108 95 Intake and Output 06/29/20 06/30/20 06/30/20 22:59 06:59 14:59 Intake Total 700 700 Output Total 625 690 Balance 75 10 Intake: IV 700 700 0.9 NaCl- 700 100 Sodium Chloride 0.9% 1, 600 000 ml @ 100 mls/hr IV . Q10H [facility] Rx#:[id number] Output: Urine 625 690 Other: Voiding Method Urinal Indwelling Catheter Weight 96.615 kg 98.2 kg Physical Exam: Revealed a 49-year-old white male, pleasant, in no distress. Head: Atraumatic, normocephalic. No evidence of facial droop noted. HEENT:[Neck is supple.] [No neck masses.] [No thyromegaly.] [No JVD.] Chest: [Clear throughout, no crackles, no rhonchi, no wheezes.] Cardiac Exam: [Normal S1 and S2, no S3 gallop, no murmur.] Abdomen: [Soft, nontender, no megaly, no rebound, no guarding, normal bowel sounds.] Extremities: [No clubbing, no edema, no cyanosis.] Good pulses bilaterally. Neurological Exam: Alert and oriented 3, left upper extremity and left lower extremity profound weakness is noted especially in the left upper extremity. And decreased tone on the left upper extremity and left leg. Psychiatric: Normal mood affect and normal mental status examination. Skin: No rashes. Results - Laboratory Findings CBC and BMP: 06/30/20 04:07 06/30/20 04:07 PT/INR, D-dimer PT 10.5 sec (9.0-12.0) 06/30/20 04:07 INR 1.0 (<1.2) 06/30/20 04:07 Abnormal lab findings: Abnormal Labs 06/29/20 06/29/20 06/30/20 19:34 19:34 00:01 RBC 3.97 L Hgb 11.4 L Hct 32.9 L Sodium 134 L BUN 39 H Creatinine 1.45 H Glucose 275 H POC Glucose (mg/dL) 257 H Total Protein 5.6 L Albumin 3.3 L Triglycerides HDL Cholesterol Urine Protein Urine Glucose (UA) Hyaline Casts Urine Mucus 06/30/20 06/30/20 06/30/20 04:07 04:07 06:00 RBC 3.82 L Hgb 11.1 L Hct 32.0 L Sodium BUN 39 H Creatinine 1.58 H Glucose 180 H POC Glucose (mg/dL) Total Protein Albumin Triglycerides 319 H HDL Cholesterol 39 L Urine Protein 2+ H Urine Glucose (UA) 4+ H Hyaline Casts 4 H Urine Mucus Rare H 06/30/20 06/30/20 07:08 11:33 RBC Hgb Hct Sodium BUN Creatinine Glucose POC Glucose (mg/dL) 198 H 303 H Total Protein Albumin Triglycerides HDL Cholesterol Urine Protein Urine Glucose (UA) Hyaline Casts Urine Mucus - Diagnostic Findings Chest x-ray: image reviewed (Chest x-ray is normal.) Additional studies: CT angiography of the head and neck and brain CT as noted in HPI. Assessment and Plan Assessment: Impression: Acute left hemiplegia secondary to CVA. Benign essential hypertension Type 2 diabetes. History of bipolar disorder. Chronic kidney disease stage III History of diabetic gastroparesis. History of depression. History of diabetic neuropathy. Recommendation: Continue present supportive care measures. Agree with the present treatment plan as per neurology and admitting service. Continue GI prophylaxis. Patient can be considered for rehab placement and he was already seen by Dr. reilly on consultation Consider transferring the patient out of the ICU to a monitor bed on selective in a.m. Time with Patient: Greater than 30
--- NOTE | 2020-06-30 15:56 | P.CRDCN ---
History of Present Illness Consult date: 06/30/20 History of present illness: This is a 49-year-old gentleman with history of hypertension, previous history of CVA, obstructive sleep apnea syndrome who presented to the hospital with sudden onset of left facial droop and left-sided weakness. Computed tomography scan was negative for hemorrhage or midline shift. Patient received thrombolytic therapy with TPA. Apparently his NIH stroke scale is improved from 6 to 4. Still has persistent weakness of the left side. CT angiogram of the neck did not reveal any significant obstructive disease. Would ask to do a PETRA examination to rule out any Cardec source of emboli. Transthoracic echocardiogram showed normal LV function without any shunts. Patient wanted to have the procedure under general anesthesia. We're planning to be a PETRA examination tomorrow under general anesthesia. Further recommendation will de pend upon the findings on the PETRA Review of Systems As per the chart Past Medical History Past Medical History: CVA/TIA, Diabetes Mellitus, GERD/Reflux, Hypertension, Sleep Apnea/CPAP/BIPAP Additional Past Medical History / Comment(s): neuropathy carpel tunnel borderline bipolar History of Any Multi-Drug Resistant Organisms: MRSA Date of last positivie culture/infection: 04/22/16 MDRO Source:: Right Hand Past Surgical History: Orthopedic Surgery Additional Past Surgical History / Comment(s): Colonscopy (B) eye cataract surg, (R) hand surgery Past Anesthesia/Blood Transfusion Reactions: No Reported Reaction Smoking Status: Never smoker - Past Family History Mother Family Medical History: Diabetes Mellitus, Renal Disease Additional Family Medical History / Comment(s): Mother is alive at age 61 with history of diabetes (wears insulin pump). Patient does not have any contact with his father. Brother(s) Additional Family Medical History / Comment(s): Patient has 2 brothers and one has history of diabetes and one has no major medical problems. Patient does not have any sisters. Patient does not have any children. Medications and Allergies Home Medications Medication Instructions Recorded Confirmed Type Atorvastatin [Lipitor] 40 mg PO HS 09/04/16 06/29/20 History Cyclobenzaprine [Flexeril] 5 mg PO TID PRN 03/13/19 06/29/20 History ARIPiprazole [Abilify] 10 mg PO HS 03/27/20 06/29/20 History Omeprazole 40 mg PO DAILY 03/27/20 06/29/20 History Potassium Chloride ER [K-Dur 10] 10 meq PO BID 03/27/20 06/29/20 History Venlafaxine HCl [Effexor XR] 225 mg PO DAILY 03/27/20 06/29/20 History buPROPion HCL [Wellbutrin SR] 150 mg PO BID 03/27/20 06/29/20 History Gabapentin 400 mg PO BID 06/29/20 06/29/20 History Insulin NPH Hum/Reg Insulin Hm 20 unit SQ AC-SUPPER 06/29/20 06/29/20 History [humuLIN 70/30 Kwikpen] Insulin NPH Hum/Reg Insulin Hm 30 unit SQ AC-BRKFST 06/29/20 06/29/20 History [humuLIN 70/30 Kwikpen] Methylphenidate HCl 20 mg PO BID 06/29/20 06/29/20 History Silodosin [Rapaflo] 4 mg PO DAILY 06/29/20 06/29/20 History lisinopriL [Zestril] 5 mg PO DAILY 06/29/20 06/29/20 History Hydrocodone/Acetaminophen [[place] 1 tab PO TID 06/30/20 06/30/20 History 7.5-325] Allergies Allergy/AdvReac Type Severity Reaction Status Date / Time lactose AdvReac Nausea & Verified 06/29/20 20:52 Vomiting & Diarrhea Physical Exam Vitals: Vital Signs Temp Pulse Pulse Resp BP BP Pulse Ox 06/30/20 14:00 87 18 168/89 95 06/30/20 13:00 88 15 159/102 93 L 06/30/20 12:45 18 06/30/20 12:00 96.9 F L 85 16 174/91 95 06/30/20 11:00 90 19 169/100 92 L 06/30/20 10:00 90 26 H 154/108 94 L 06/30/20 09:00 87 15 146/97 94 L 06/30/20 08:30 85 17 178/103 93 L 06/30/20 08:15 15 06/30/20 08:00 98.2 F 83 18 140/94 94 L 06/30/20 07:00 84 14 174/105 93 L 06/30/20 06:30 81 16 165/94 92 L 06/30/20 06:00 86 20 161/100 96 06/30/20 05:30 82 16 149/89 95 06/30/20 05:00 83 15 144/101 95 06/30/20 04:30 98.2 F 84 17 187/93 97 06/30/20 04:00 87 21 151/99 98 06/30/20 03:30 85 18 163/98 96 06/30/20 03:00 84 16 150/95 95 06/30/20 02:30 83 15 167/106 95 06/30/20 02:00 86 16 153/85 94 L 06/30/20 01:30 77 15 158/75 93 L 06/30/20 01:00 79 17 179/107 95 06/30/20 00:30 85 16 162/106 95 06/30/20 00:15 98.1 F 82 15 159/103 96 06/30/20 00:05 98.1 F 81 20 162/106 98 06/29/20 23:45 98.7 F 92 17 132/87 99 06/29/20 23:15 98.3 F 89 17 148/89 97 06/29/20 22:45 98.3 F 89 19 150/90 98 06/29/20 22:15 98.6 F 89 19 129/73 98 06/29/20 21:45 98.7 F 84 17 113/64 97 06/29/20 21:30 98.7 F 87 18 128/77 98 06/29/20 21:15 98.6 F 89 18 130/89 98 06/29/20 21:00 98.5 F 87 17 137/90 97 06/29/20 20:45 98.4 F 89 17 124/86 98 06/29/20 20:30 98.2 F 87 19 136/92 97 06/29/20 20:15 98.3 F 92 18 130/87 96 06/29/20 20:00 98.4 F 89 17 118/92 97 06/29/20 19:49 92 18 114/89 96 06/29/20 19:45 98.2 F 90 18 134/86 96 06/29/20 19:32 98.8 F 93 19 150/108 95 Intake and Output 06/30/20 06/30/20 06/30/20 06:59 14:59 22:59 Intake Total 700 800 Output Total 625 750 Balance 75 50 Intake: IV 700 800 0.9 NaCl- 700 100 Sodium Chloride 0.9% 1, 700 000 ml @ 100 mls/hr IV . Q10H [facility] Rx#:[id number] Output: Urine 625 750 Other: Voiding Method Urinal Indwelling Catheter Weight 98.2 kg GENERAL EXAM: Patient is alert and oriented and doesn't appear to be in any acute distress HEENT: Normocephalic. Normal reaction of pupils, equal size, normal range of extraocular motion. No erythema or exudates in the throat. NECK: No masses, no nuchal rigidity. CHEST: No chest wall deformity. LUNGS: Equal air entry with no crackles or wheeze. HEART: S1 and S2 normal with no audible mumurs or gallops. Regular rhythm, femorals equal on both sides.. ABDOMEN: No hepatosplenomegaly, normal bowel sounds, no guarding or rigidity. SKIN: No rashes CENTRAL NERVOUS SYSTEM: Weakness of the both the left upper and lower extremities. Speech is normal, at this time EXTREMITIES: No cyanosis, clubbing or edema. Results 06/30/20 04:07 06/30/20 04:07 Cardiac Enzymes 06/29/20 06/29/20 Range/Units 19:34 19:34 AST 17 (17-59) U/L Troponin I <0.012 (0.000-0.034) ng/mL Coagulation 06/29/20 06/30/20 Range/Units 19:34 04:07 PT 10.6 10.5 (9.0-12.0) sec APTT 22.9 23.3 (22.0-30.0) sec Lipids 06/30/20 Range/Units 04:07 Triglycerides 319 H (<150) mg/dL Cholesterol 190 (<200) mg/dL HDL Cholesterol 39 L (40-60) mg/dL CBC 06/29/20 06/30/20 Range/Units 19:34 04:07 WBC 7.7 8.1 (3.8-10.6) k/uL RBC 3.97 L 3.82 L (4.30-5.90) m/uL Hgb 11.4 L 11.1 L (13.0-17.5) gm/dL Hct 32.9 L 32.0 L (39.0-53.0) % Plt Count 317 310 (150-450) k/uL Comprehensive Metabolic Panel 06/29/20 06/30/20 Range/Units 19:34 04:07 Sodium 134 L 140 (137-145) mmol/L Potassium 4.6 4.5 (3.5-5.1) mmol/L Chloride 99 103 (98-107) mmol/L Carbon Dioxide 27 30 (22-30) mmol/L BUN 39 H 39 H (9-20) mg/dL Creatinine 1.45 H 1.58 H (0.66-1.25) mg/dL Glucose 275 H 180 H (74-99) mg/dL Calcium 8.7 9.3 (8.4-10.2) mg/dL AST 17 (17-59) U/L ALT 16 (4-49) U/L Alkaline Phosphatase 96 (38-126) U/L Total Protein 5.6 L (6.3-8.2) g/dL Albumin 3.3 L (3.5-5.0) g/dL Current Medications Generic Name Dose Route Start Last Admin Trade Name Freq PRN Reason Stop Dose Admin Hydrocodone Bitart/Acetaminophen 1 each 06/30/20 14:45 Hydrocodone/Apap 7.5-325mg 1 Each Tab PO Q8H PRN Pain Amlodipine Besylate 5 mg 06/30/20 09:00 06/30/20 13:15 Amlodipine 5 Mg Tab PO 5 mg DAILY [facility] Administration Aripiprazole 10 mg 06/30/20 21:00 Aripiprazole 10 Mg Tab PO HS [facility] Atorvastatin Calcium 40 mg 06/30/20 21:00 Atorvastatin 40 Mg Tab PO HS [facility] Bupropion HCl 150 mg 06/30/20 21:00 Bupropion Sr 150 Mg Tablet.Er PO BID [facility] Cyclobenzaprine HCl 5 mg 06/30/20 12:08 Cyclobenzaprine 5 Mg Tab PO TID PRN Muscle Spasm Gabapentin 400 mg 06/30/20 21:00 Gabapentin 400 Mg Cap PO BID [facility] Sodium Chloride 1,000 mls @ 100 mls/hr 06/29/20 22:15 06/30/20 07:12 Saline 0.9% IV 100 mls/hr .Q10H [facility] Administration Insulin Aspart 20 unit 06/30/20 17:30 Insuln Asp Prt/Insulin Aspart 100 Unit/Ml 10 Ml Vial SQ AC-SUPPER [facility] Insulin Aspart 30 unit 07/01/20 07:30 Insuln Asp Prt/Insulin Aspart 100 Unit/Ml 10 Ml Vial SQ AC-BRKFST [facility] Insulin Aspart 0 unit 06/30/20 12:30 06/30/20 13:17 Insulin Aspart (Novolog) 100 Unit/Ml Vial SQ 5 unit ACHS [facility] Administration Protocol Lisinopril 5 mg 06/30/20 12:30 Lisinopril 5 Mg Tab PO DAILY [facility] Naloxone HCl 0.2 mg 06/30/20 01:48 Naloxone 0.4 Mg/Ml 1 Ml Vial IV Q2M PRN Opioid Reversal Pantoprazole Sodium 40 mg 06/30/20 09:00 06/30/20 08:50 Pantoprazole 40 Mg/10 Ml Vial IV 40 mg DAILY [facility] Administration Potassium Chloride 10 meq 06/30/20 21:00 Potassium Chloride Er 10 Meq Tab.Er.Prt PO BID [facility] Tamsulosin HCl 0.4 mg 07/01/20 09:00 Tamsulosin 0.4 Mg Cap.Er.24h PO DAILY [facility] Venlafaxine HCl 225 mg 07/01/20 09:00 Venlafaxine Hcl Er 75 Mg Cap PO DAILY [facility] Intake and Output 06/30/20 06/30/20 06/30/20 06:59 14:59 22:59 Intake Total 700 800 Output Total 625 750 Balance 75 50 Intake: IV 700 800 0.9 NaCl- 700 100 Sodium Chloride 0.9% 1, 700 000 ml @ 100 mls/hr IV . Q10H [facility] Rx#:[id number] Output: Urine 625 750 Other: Voiding Method Urinal Indwelling Catheter Weight 98.2 kg 06/30/20 04:07 06/30/20 04:07 EKG Interpretations (text) EKG showed a sinus rhythm with early repolarization changes Assessment and Plan (1) Cerebrovascular accident (CVA) Current Visit: Yes Status: Acute Code(s): I63.9 - CEREBRAL INFARCTION, UNSPECIFIED SNOMED Code(s): 663794877 (2) Hypertension Current Visit: No Status: Acute Code(s): I10 - ESSENTIAL (PRIMARY) HYPERTENSION SNOMED Code(s): 25065311 Plan: We'll schedule for a PETRA examination for tomorrow. Meanwhile, continue current management. TE will be done under general anesthesia
--- NOTE | 2020-06-30 16:12 | MR ---
EXAMINATION TYPE: MR brain wo con DATE OF EXAM: 06/30/2020 COMPARISON: CT brain from yesterday. HISTORY: Neuro deficits acute onset, CVA TECHNIQUE: Multiplanar, multisequence imaging of the brain and brainstem is performed without IV cont rast. FINDINGS: Diffusion weighted images demonstrate 12 x 4 mm area of increased signal on diffusion weighted images with diminished signal ADC mapping just lateral to the lateral aspect right thalamus image 136 serie s 305 that shows T2 hyperintensity. There is a smaller areas of involvement in the posterior lateral aspect left thalamus measuring roughly 10 x 3 mm of similar imaging characteristics. There is mild ventricular and sulcal prominence. Some T2 hyperintensity in the periventricular white matter is noted. Midline structures demonstrate normal morphology. The craniocervical junction appears within normal limits. Normal vascular flow voids are present. Dominant left vertebral artery fills the basilar ford ry . Small mucous retention cyst or polyp in the inferior left maxillary sinus otherwise paranasal si nuses are clear. Globes are intact bilaterally. IMPRESSION: There is MRI confirmation of small bilateral acute infarcts as detailed above.
[2020-06-30] MEDS ORDERED: amLODIPine 5 MG TAB PO STA (16:14)
[2020-06-30 16:53] LABS: Glucose,Whole Blood 151 mg/dL (75-99)
[2020-06-30] MEDS: INSULN ASP PRT/INSULIN ASPART 100 UNIT/ML 10 ML VIAL SQ SCH (17:10)
[2020-06-30] MEDS: HYDROcodone/APAP 7.5-325MG 1 EACH TAB PO PRN (18:27)
[2020-06-30 20:44] LABS: Glucose,Whole Blood 119 mg/dL (75-99)
[2020-06-30] MEDS: GABAPENTIN 400 MG CAP PO SCH (20:50)
[2020-06-30] MEDS: ARIPiprazole 10 MG TAB PO SCH (20:50)
[2020-06-30] MEDS: POTASSIUM CHLORIDE ER 10 MEQ TAB.ER.PRT PO SCH (20:50)
[2020-06-30] MEDS: buPROPion SR 150 MG TABLET.ER PO SCH (20:50)
[2020-06-30] MEDS: ATORVASTATIN 40 MG TAB PO SCH (20:50)
[2020-06-30] MEDS ORDERED: ATORVASTATIN 80 MG TAB PO SCH (21:00)
[2020-07-01] MEDS: HYDROcodone/APAP 7.5-325MG 1 EACH TAB PO PRN ×3 (02:18→22:18)
[2020-07-01 04:36] LABS: Basophils % (A) 0 %; Eosinophils # (A) 0.2 k/uL (0-0.7); Eosinophils % (A) 2 %; HCT 31.8 % (39.0-53.0); HGB 11.1 gm/dL (13.0-17.5); Lymphocytes # (A) 1.7 k/uL (1.0-4.8); Lymphocytes % (A) 19 %; MCH 29.3 pg (25.0-35.0); MCHC 34.8 g/dL (31.0-37.0); MCV 84.2 fL (80.0-100.0); Mean Platelet Volume 6.1; Monocytes # (A) 0.5 k/uL (0-1.0); Monocytes % (A) 5 %; Neutrophils # (A) 6.4 k/uL (1.3-7.7); Neutrophils % (A) 72 %; Platelet Count 287 k/uL (150-450); RBC 3.78 m/uL (4.30-5.90); RDW 13.6 % (11.5-15.5); WBC 8.9 k/uL (3.8-10.6)
[2020-07-01 05:01] LABS: Calcium 8.9 mg/dL (8.4-10.2); Magnesium 1.7 mg/dL (1.6-2.3); Phosphorus 4.4 mg/dL (2.5-4.5); Potassium 4.4 mmol/L (3.5-5.1)
[2020-07-01] MEDS ORDERED: Magnesium Replacement Protocol 1 EACH MISC MISCELLANE PRN (06:00)
[2020-07-01] MEDS: MAGNESIUM SULFATE-D5W PMX 1 GM in DEXTROSE/WATER 1 100ML.BAG IVPB SCH ×2 (06:49→11:08)
[2020-07-01 07:01] LABS: Glucose,Whole Blood 126 mg/dL (75-99)
[2020-07-01] MEDS: INSULN ASP PRT/INSULIN ASPART 100 UNIT/ML 10 ML VIAL SQ SCH ×2 (07:15→18:24)
[2020-07-01] MEDS: INSULIN ASPART (NovoLOG) 100 UNIT/ML VIAL SQ SCH ×4 (07:15→22:23)
[2020-07-01] MEDS ORDERED: NON FORMULARY DRUG (Omeprazole [Omeprazole] 20 MG Capsule.Dr) PO SCH (09:00)
[2020-07-01] MEDS: SODIUM CHLORIDE 0.9% 1,000 ML IV SCH ×2 (10:45→14:52)
[2020-07-01] MEDS: PANTOPRAZOLE 40 MG/10 ML VIAL IV SCH (11:08)
[2020-07-01] MEDS: VENLAFAXINE HCL ER 75 MG CAP PO SCH (11:08)
[2020-07-01] MEDS: TAMSULOSIN 0.4 MG CAP.ER.24H PO SCH (11:09)
[2020-07-01] MEDS: GABAPENTIN 400 MG CAP PO SCH ×2 (11:09→22:20)
[2020-07-01] MEDS: POTASSIUM CHLORIDE ER 10 MEQ TAB.ER.PRT PO SCH ×2 (11:09→22:21)
[2020-07-01] MEDS: amLODIPine 10 MG TAB PO SCH (11:09)
[2020-07-01] MEDS: buPROPion SR 150 MG TABLET.ER PO SCH ×2 (11:09→22:23)
--- NOTE | 2020-07-01 12:38 | P.PN ---
Subjective Progress Note Date: 07/01/20 Principal diagnosis: Acute CVA This is a 49-year-old white male with history of hypertension, type 2 diabetes, previous history of CVA, obstructive sleep apnea syndrome, patient presented last night to the ER around 7:20 PM with acute sudden onset of left facial droop, left upper and left lower extremity weakness. Upon arrival to the ER, CT of the head showed no intracranial hemorrhage or midline shift. CT angiogram of the head and neck showed no significant stenosis in the common or internal carotid arteries. Chest x-ray showed no cardiopulmonary process. EKG was basic ally unremarkable. Patient received TPA at timely manner and his initial NIH stroke scale was reported as 6 improved to 4 after the TPA. Considering the patient received TPA, he was admitted to the ICU. Overnight the patient was relatively stable, the pressure is a bit elevated and patient was placed on amlodipine. Patient is doing fairly well this morning, however he continues to have left upper extremity weakness and left lower extremity weakness. Patient was seen by speech therapy and recommended placement on neck that are thick liquids to avoid aspiration. Patient was also seen by Dr. Reilly for potential rehab Placement Patient was reevaluated today on 07/01/2020, patient remains in the ICU, he presented initially with CVA and left-sided weakness, patient received TPA, and he is now on the post TPA protocol. Patient is scheduled to have PETRA tomorrow. However I plan to transfer the patient out of the ICU today to a monitor bed on selective. Neurologically the patient is about the same, continues to have significant weakness in the left upper extremity and left lower extremity. Otherwise no other significant findings. Patient is on Xarelto. MRI of the brain was noted. Patient will be reassessed today by neurology again. Labs from today including CBC and basic metabolic profile were noted to be normal except for creatinine of 1.38. Objective - Vital Signs Vital signs: Vital Signs Temp 98.2 F 06/30/20 20:00 Pulse 81 06/30/20 22:00 Resp 15 06/30/20 22:00 BP 157/90 06/30/20 22:00 Pulse Ox 92 L 06/30/20 22:00 Intake & Output 06/30/20 07/01/20 07/01/20 18:59 06:59 18:59 Intake Total 1320 1440 100 Output Total 930 760 45 Balance 390 680 55 Weight 99.7 kg Intake: IV 1200 1200 100 0.9 NaCl- 100 Magnesium Sulfate-D5w Pmx 100 1 gm In Dextrose/Water 1 100ml.bag @ 100 mls/hr IVPB Q1H [facility] Rx#: [id number] Sodium Chloride 0.9% 1, 1100 1200 000 ml @ 100 mls/hr IV . Q10H [facility] Rx#:[id number] Oral 120 240 Output: Urine 930 760 45 Other: Voiding Method Indwelling Catheter Indwelling Catheter - Exam GENERAL EXAM: Patient is alert and oriented and doesn't appear to be in any acute distress HEENT: Normocephalic. Normal reaction of pupils, equal size, normal range of extraocular motion. No erythema or exudates in the throat. NECK: No masses, no nuchal rigidity. CHEST: No chest wall deformity. LUNGS: Equal air entry with no crackles or wheeze. HEART: S1 and S2 normal with no audible mumurs or gallops. Regular rhythm, femo rals equal on both sides.. ABDOMEN: No hepatosplenomegaly, normal bowel sounds, no guarding or rigidity. SKIN: No rashes CENTRAL NERVOUS SYSTEM: Weakness of the both the left upper and lower extremiti es. Speech is normal EXTREMITIES: No cyanosis, clubbing or edema. - Labs CBC & Chem 7: 07/01/20 04:25 07/01/20 04:25 Labs: Abnormal Lab Results - Last 24 Hours (Table) 06/30/20 06/30/20 07/01/20 Range/Units 16:48 20:43 04:25 RBC 3.78 L (4.30-5.90) m/uL Hgb 11.1 L (13.0-17.5) gm/dL Hct 31.8 L (39.0-53.0) % BUN (9-20) mg/dL Creatinine (0.66-1.25) mg/dL POC Glucose (mg/dL) 151 H 119 H (75-99) mg/dL 07/01/20 07/01/20 Range/Units 04:25 06:59 RBC (4.30-5.90) m/uL Hgb (13.0-17.5) gm/dL Hct (39.0-53.0) % BUN 27 H (9-20) mg/dL Creatinine 1.38 H (0.66-1.25) mg/dL POC Glucose (mg/dL) 126 H (75-99) mg/dL Assessment and Plan Assessment: Impression: Acute left hemiplegia secondary to CVA. Benign essential hypertension Type 2 diabetes. History of bipolar disorder. Chronic kidney disease stage III History of diabetic gastroparesis. History of depression. History of diabetic neuropathy. Recommendation: Continue present supportive care measures. Transfer patient to a monitor bed on selective. Continue GI prophylaxis. Patient can be considered for rehab placement and he was already seen by Dr. erilly on consultation We will see the patient on when necessary basis Time with Patient: Less than 30
--- NOTE | 2020-07-01 13:16 | P.PN ---
Subjective Progress Note Date: 07/01/20 HISTORY OF PRESENT ILLNESS This is a 49-year-old male patient of Dr. Guillen with past medical history of subacute ischemic cerebral infarct in 2019 presenting with severe vertigo and started on Plavix, history of autonomic dysfunction related to diabetes, diabetes mellitus type 2 with gastro-paresis and diabetic neuropathy, hypertension, hyperlipidemia, chronic kidney disease stage III, hypothyroidism, benign prostatic hypertrophy, recurrent depression, gastroesophageal reflux disease. Patient states that he was sitting on a stool and fell off and had experienced left sided weakness of the upper and lower extremities along with a facial droop. In April of this year, patient underwent barium swallow with normal study. Patient presented to [facility] emergency center for evaluation. CAT scan of the brain showed no acute intracranial hemorrhage or mi dline shift. No sniffing change from prior CAT scan. CT angiogram of the head and neck revealed no significant stenosis and common or internal carotid arteries bilaterally. No significant stenosis in the [place]. No significant change. Chest x-ray shows no acute cardio pulmonary process. EKG was a sinus rhythm with LVH. Repeat chest x-ray reveals some hypoventilatory changes. No acute process. WBC 7.7, hemoglobin 11.4, platelet count 317. INR 1.0. Sodium 134, potassium 4.6, chloride 99, CO2 27, BUN 39 and creatinine 1.45. Blood sugar 275. Liver function tests normal. Troponin negative. CK 123. Triglycerides 319, cholesterol 190, LDL 87, HDL 39. Urinalysis clear, nitrite and leukoesterase negative. Protein 2+, glucose 4+. Coronavirus not detected. Patient was admi nistered TPA per protocol and admitted into the intensive care unit, neurology consult. Initial NIH score 6 and following TPA NIH score 4. Patient has been seen by speech therapy and recommended ground foods with nectar thick liquids and aspiration precautions. Echocardiogram, MRI of the brain, hemoglobin A1c and ordered 07/01 patient remains in ICU. Continues to have left-sided weakness for no improvement has been made. Patient is scheduled for PETRA tomorrow. Vitals are stable. Have suggested a hemoglobin of 11.1 BUN 27 creatinine 1.38 LDL is 87 triglycerides 319 MRA evaluated does show bilateral acute infarcts involving the thalamus. Patient's source of stroke is likely embolic. Avoid anticoagulation or antiplatelet until approved by neurology. Patient initiated on amlodipine 10 mg by mouth daily. REVIEW OF SYSTEMS Constitutional: No fever, no chills, no night sweats. No weight change. No weakness, fatigue or lethargy. No daytime sleepiness. EENT: No headache. No blurred vision or double vision, no loss of vision. No loss of Hearing, no ringing in the ears, no dizziness. No nasal drainage or congestion. No epistaxis. No sore throat. Lungs: No shortness of breath, cough, no sputum production. No wheezing. Cardiovascular: No chest pain, no lower extremity edema. No palpitations. No paroxysmal nocturnal dyspnea. No orthopnea. No lightheadedness or dizziness. No syncopal episodes. Abdominal: No abdominal pain. No nausea, vomiting. No diarrhea. No constipation. No bloody or tarry stools.. No loss of appetite. Genitourinary: No dysuria, increased frequency, urgency. No urinary retention. Musculoskeletal: No myalgias. No muscle weakness, no gait dysfunction, no frequent falls. No back pain. No neck pain. Integumentary: No wounds, no lesions. No rash or pruritus. No unusual bruising. No change in hair or nails. Neurologic: No aphasia. No facial droop. No change in mentation. No head injury. No headache. No paralysis. No paresthesia. Psychiatric: No depression. No anxiety. No mood swings. Endocrine: No abnormal blood sugars. No weight change. No excessive sweating or thirst. No cold intolerance. Objective - Vital Signs Vital signs: Vital Signs Temp 98.2 F 06/30/20 20:00 Pulse 81 06/30/20 22:00 Resp 15 06/30/20 22:00 BP 157/90 06/30/20 22:00 Pulse Ox 92 L 06/30/20 22:00 Intake & Output 06/30/20 07/01/20 07/01/20 18:59 06:59 18:59 Intake Total 1320 1440 200 Output Total 930 760 270 Balance 390 680 -70 Weight 99.7 kg Intake: IV 1200 1200 200 0.9 NaCl- 100 Magnesium Sulfate-D5w Pmx 200 1 gm In Dextrose/Water 1 100ml.bag @ 100 mls/hr IVPB Q1H [facility] Rx#: [id number] Sodium Chloride 0.9% 1, 1100 1200 000 ml @ 100 mls/hr IV . Q10H [facility] Rx#:[id number] Oral 120 240 Output: Urine 930 760 270 Other: Voiding Method Indwelling Catheter Indwelling Catheter Indwelling Catheter - Exam PHYSICAL EXAMINATION Gen: This is a 49-year-old male. Patient is resting in ICU bed and appears comfortable and in no acute distress. HEENT: Head is atraumatic, normocephalic. Pupils equal, round. Sclerae is anicteric. NECK: Supple. No JVD. No lymphadenopathy. No thyromegaly. LUNGS: Clear to auscultation. No wheezes or rhonchi. No intercostal retractions. HEART: Regular rate and rhythm. No murmur. ABDOMEN: Soft. Bowel sounds are present. No masses. No tenderness. EXTREMITIES: No pedal edema. No calf tenderness. Dorsalis pedis +2 manolo aterally. NEUROLOGICAL: Patient is awake, alert and oriented x3. Decreased sensation to his face. Decrease reflexes on the left. Decreased sensation to the left lower extremity. 3/5 upper and lower ext weakness - Labs CBC & Chem 7: 07/01/20 04:25 07/01/20 04:25 Labs: Abnormal Lab Results - Last 24 Hours (Table) 06/30/20 06/30/20 07/01/20 Range/Units 16:48 20:43 04:25 RBC 3.78 L (4.30-5.90) m/uL Hgb 11.1 L (13.0-17.5) gm/dL Hct 31.8 L (39.0-53.0) % BUN (9-20) mg/dL Creatinine (0.66-1.25) mg/dL POC Glucose (mg/dL) 151 H 119 H (75-99) mg/dL 07/01/20 07/01/20 Range/Units 04:25 06:59 RBC (4.30-5.90) m/uL Hgb (13.0-17.5) gm/dL Hct (39.0-53.0) % BUN 27 H (9-20) mg/dL Creatinine 1.38 H (0.66-1.25) mg/dL POC Glucose (mg/dL) 126 H (75-99) mg/dL Assessment and Plan Plan: ASSESSMENT AND PLAN 1. Acute ischemic right sided stroke status post TPA. Can be transferred out of ICU. Hold anticoagulation and antiplatelets. No right-sided at 10 mg pill for blood pressure Continue neuro checks per protocol. PETRA to evaluate for embolic stroke. Patient does not have history of atrial fibrillation and previous carotid studies showed no stenosis. 2. History of subacute ischemic cerebral infarct in 2019 presented as severe vertigo and patient was placed on Plavix at that time. 3. Diabetes mellitus type 2, insulin requiring. Patient will be resumed on NovoLog mix 7030 30 units with breakfast and 20 with supper along with NovoLog scale. 4. Diabetes neuropathy. Continue gabapentin 4 mg twice daily. 5. Hypertension. Amlodipine 10 mg by mouth daily added 6. Hyperlipidemia. Continue atorvastatin 40 mg at bedtime. 7. Diabetic gastroparesis and autonomic dysfunction, stable. 8. Chronic kidney disease stage III. 9. Benign prostatic hypertrophy. Continue Flomax or 0.4 mg daily. 10. Recurrent depression and generalized anxiety disorder. Continue venlafaxine 225 mg daily, Wellbutrin 150 mg twice daily, Abilify 10 mg at bedtime. 11. GI prophylaxis. Protonix. Patient will be admitted to the hospital for a minimum of 2 night stay. DISCHARGE PLAN To be determined. PT, OT, speech therapy following. Consult with Dr. Reilly for possible inpatient rehab.
[2020-07-01 14:43] LABS: Glucose,Whole Blood 168 mg/dL (75-99)
[2020-07-01] MEDS ORDERED: hydrALAZINE HCL 20 MG/ML 1 ML VIAL IVP PRN (15:23)
[2020-07-01] MEDS: lisinopriL 10 MG TAB PO SCH (15:49)
[2020-07-01 15:56] VITALS: BMI 33.4
[2020-07-01 16:35] LABS: Glucose,Whole Blood 241 mg/dL (75-99)
--- NOTE | 2020-07-01 17:48 | P.PN ---
Subjective Progress Note Date: 07/01/20 Mr. Ravinder Orellana is a 49-year-old male who is seen in neurologic follow-up on July 01, 2020 via teleneurology. The patient's chart is reviewed. He presented to the emergency department with left-sided weakness. CT scan and CT angiogram were performed. This testing revealed no acute infarct and no significant stenosis or occlusion. The patient was within the time window and so received IV TPA. He tolerated the TPA well. He has had no improvement in his left-sided weakness. The patient denies difficulty swallowing. He does report slurring of his speech. He denies visual loss. The patient reports having had a stroke in the past. He is not followed by a neurologist. He denies having had a hypercoagulable workup. Objective - Vital Signs Vital signs: Vital Signs Temp 98.2 F 06/30/20 20:00 Pulse 81 06/30/20 22:00 Resp 15 06/30/20 22:00 BP 157/90 06/30/20 22:00 Pulse Ox 92 L 06/30/20 22:00 Intake & Output 06/30/20 07/01/20 07/01/20 18:59 06:59 18:59 Intake Total 1320 1440 200 Output Total 930 760 270 Balance 390 680 -70 Weight 99.7 kg Intake: IV 1200 1200 200 0.9 NaCl- 100 Magnesium Sulfate-D5w Pmx 200 1 gm In Dextrose/Water 1 100ml.bag @ 100 mls/hr IVPB Q1H KERVIN Rx#: [id number] Sodium Chloride 0.9% 1, 1100 1200 000 ml @ 100 mls/hr IV . Q10H KERVIN Rx#:[id number] Oral 120 240 Output: Urine 930 760 270 Other: Voiding Method Indwelling Catheter Indwelling Catheter Indwelling Catheter - Exam Gen.: The patient is reclining in the bed. He is well-nourished, well-developed and in no acute distress. HEENT: Head is atraumatic, normocephalic. Fundus not visualized. There is no scleral icterus. Mucous membranes are moist. The patient is found to have pocketing of food in the left side of his mouth. He is unaware that the fluid is present. Neurologic examination Mental status: The patient is awake, alert and oriented 3. His speech is dysarthric. His mood is sad. Cranial nerves: Pupils are equal, round and reactive to light. Visual márquez are full to confrontation. Extraocular movements are intact. There is no nysta gmus. Facial sensation is intact. There is flattening of the left nasolabial fold. Hearing is grossly intact. Shoulder shrug is absent on the left. Tongue protrudes midline and with protrusion of the tongue, food is present and falls from the patient's mouth. Motor: Left upper and lower extremities are flaccid Sensation: Grossly intact to light touch. There is no extinction with double simultaneous stimulation. There is distal gradient sensory loss in the feet. Deep tendon reflexes: 2+/4+ in the bilateral upper extremities. Left patellar reflex 2+/4+. Right patellar reflex 1+/4+. Achilles reflexes are absent. 2-D echocardiogram results are reviewed. There is no evidence of [id number] shunt. Hemoglobin A1c is elevated at 9.7. Triglycerides are elevated at 312. MRI of the brain is reviewed. - Labs CBC & Chem 7: 07/01/20 04:25 07/01/20 04:25 Labs: Abnormal Lab Results - Last 24 Hours (Table) 06/30/20 06/30/20 07/01/20 Range/Units 16:48 20:43 04:25 RBC (4.30-5.90) m/uL Hgb (13.0-17.5) gm/dL Hct (39.0-53.0) % BUN (9-20) mg/dL Creatinine (0.66-1.25) mg/dL POC Glucose (mg/dL) 151 H 119 H (75-99) mg/dL Hemoglobin A1c 9.7 H (4.0-6.0) % 07/01/20 07/01/20 07/01/20 Range/Units 04:25 04:25 06:59 RBC 3.78 L (4.30-5.90) m/uL Hgb 11.1 L (13.0-17.5) gm/dL Hct 31.8 L (39.0-53.0) % BUN 27 H (9-20) mg/dL Creatinine 1.38 H (0.66-1.25) mg/dL POC Glucose (mg/dL) 126 H (75-99) mg/dL Hemoglobin A1c (4.0-6.0) % 07/01/20 Range/Units 14:41 RBC (4.30-5.90) m/uL Hgb (13.0-17.5) gm/dL Hct (39.0-53.0) % BUN (9-20) mg/dL Creatinine (0.66-1.25) mg/dL POC Glucose (mg/dL) 168 H (75-99) mg/dL Hemoglobin A1c (4.0-6.0) % Assessment and Plan Assessment: 1. Acute bilateral embolic infarcts 2. Poorly controlled diabetes mellitus 3. History of hypertension 4. Hyperlipidemia Plan: 1. Agree with transesophageal echocardiogram 2. Agree with repeat speech evaluation regarding swallow 3. The patient should be started on high-dose statin 4. Likely anticoagulation will be indicated in light of embolic infarcts. Would wait 7 days before starting anticoagulation. 5. Tighter control of blood sugar 6. Tighter blood pressure control 7. Heart healthy diet is recommended 8. Exercise and weight loss recommended Time with Patient: Less than 30 (spent 20 minutes with patient via teleneurology)
[2020-07-01 20:57] LABS: Glucose,Whole Blood 134 mg/dL (75-99)
[2020-07-01] MEDS: ATORVASTATIN 40 MG TAB PO SCH (22:20)
[2020-07-01] MEDS: ARIPiprazole 10 MG TAB PO SCH (22:21)
[2020-07-02] MEDS: SODIUM CHLORIDE 0.9% 1,000 ML IV SCH ×4 (00:15→20:15)
[2020-07-02 05:53] LABS: Glucose,Whole Blood 126 mg/dL (75-99)
[2020-07-02] MEDS: HYDROcodone/APAP 7.5-325MG 1 EACH TAB PO PRN ×2 (06:28→21:26)
[2020-07-02] MEDS: INSULIN ASPART (NovoLOG) 100 UNIT/ML VIAL SQ SCH ×4 (06:30→21:26)
[2020-07-02] MEDS: INSULN ASP PRT/INSULIN ASPART 100 UNIT/ML 10 ML VIAL SQ SCH ×2 (07:06→17:43)
[2020-07-02 07:10] LABS: Basophils % (A) 0 %; Eosinophils # (A) 0.2 k/uL (0-0.7); Eosinophils % (A) 3 %; HGB 10.2 gm/dL (13.0-17.5); Lymphocytes # (A) 1.6 k/uL (1.0-4.8); Lymphocytes % (A) 21 %; MCH 28.9 pg (25.0-35.0); MCHC 33.8 g/dL (31.0-37.0); MCV 85.4 fL (80.0-100.0); Mean Platelet Volume 6.3; Monocytes # (A) 0.4 k/uL (0-1.0); Monocytes % (A) 6 %; Neutrophils # (A) 5.3 k/uL (1.3-7.7); Neutrophils % (A) 70 %; Platelet Count 259 k/uL (150-450); RBC 3.51 m/uL (4.30-5.90); RDW 13.8 % (11.5-15.5); WBC 7.6 k/uL (3.8-10.6)
[2020-07-02 07:25] LABS: Calcium 8.5 mg/dL (8.4-10.2); Magnesium 2.1 mg/dL (1.6-2.3); Potassium 4.9 mmol/L (3.5-5.1)
[2020-07-02] MEDS ORDERED: fentaNYL (PF) 50 MCG/ML 2 ML AMP ONE (10:09)
[2020-07-02] MEDS ORDERED: PROPOFOL 10 MG/ML 20 ML VIAL IV ONE (10:27)
[2020-07-02] MEDS ORDERED: IV FLUID CONTINUATION 200 ML IV ONE (10:29)
[2020-07-02] MEDS ORDERED: SODIUM CHLORIDE 0.9% 500 ML 500 ML IV ONE (10:41)
[2020-07-02] MEDS ORDERED: BENZOCAINE SPRAY 1 CAN MUCOUS MEM ONE (10:43)
[2020-07-02 12:21] LABS: Glucose,Whole Blood 157 mg/dL (75-99)
--- NOTE | 2020-07-02 12:30 | P.PCN ---
Date of Procedure: 07/02/20 Preoperative Diagnosis: Rule out Cardec source of emboli. History of cryptogenic CVA Postoperative Diagnosis: No Cardec source of emboli noted on the study Procedure(s) Performed: PETRA Description of Procedure: INDICATION: This is a 49-year-old gentleman was admitted to the hospital with second episode of CVA with left-sided weakness. No etiology could be found. A PETRA examination is requested to rule out Cardec source of emboli. CONSENT: Verbal informed consent is obtained from the patient PROCEDURE: Patient was brought to the lab in a fasting state. He was prepped and draped in the usual fashion. Department of anesthesia provided anesthesia during the procedure. The throat was sprayed with Hurricaine. A lubricated Omni probe was introduced in the oropharynx and was advanced into the esophagus without any difficulty. Multiple views were obtained both from the esophagus and stomach. Color, pulsed, continuous-wave Doppler studies were performed. Saline contrast bubble study is also performed. Patient tolerated the procedure well. No immediate complications FINDINGS:. The aortic valve is tricuspid, which is functioning normally. Aortic root diameter is normal. The mitral valve appeared to be normal without any evidence of vegetation. The tricuspid valve appeared to be normal without any vegetations. The interatrial septum is intact without any spontaneous shunt. Injection of the saline contrast bubble did not reveal any crossing of the bubbles. The left atrial appendage is free of any clot. The chamber sizes are normal. Left ventricular function is normal IMPRESSION:. #1. Normal study. #2. No cardiac source of emboli on the study PLAN: Look for other causes of CVA. Continue current medical therapy
[2020-07-02] MEDS: PANTOPRAZOLE 40 MG/10 ML VIAL IV SCH (13:10)
[2020-07-02] MEDS: TAMSULOSIN 0.4 MG CAP.ER.24H PO SCH (13:10)
[2020-07-02] MEDS: POTASSIUM CHLORIDE ER 10 MEQ TAB.ER.PRT PO SCH ×2 (13:10→21:26)
[2020-07-02] MEDS: amLODIPine 10 MG TAB PO SCH (13:10)
[2020-07-02] MEDS: VENLAFAXINE HCL ER 75 MG CAP PO SCH (13:10)
[2020-07-02] MEDS: lisinopriL 10 MG TAB PO SCH (13:10)
[2020-07-02] MEDS: buPROPion SR 150 MG TABLET.ER PO SCH ×2 (13:10→21:31)
[2020-07-02] MEDS: GABAPENTIN 400 MG CAP PO SCH ×2 (13:11→21:26)
--- NOTE | 2020-07-02 16:02 | P.PN ---
Subjective Progress Note Date: 07/02/20 HISTORY OF PRESENT ILLNESS This is a 49-year-old male patient of Dr. Guillen with past medical history of subacute ischemic cerebral infarct in 2019 presenting with severe vertigo and started on Plavix, history of autonomic dysfunction related to diabetes, diabetes mellitus type 2 with gastro-paresis and diabetic neuropathy, hypertension, hyperlipidemia, chronic kidney disease stage III, hypothyroidism, benign prostatic hypertrophy, recurrent depression, gastroesophageal reflux disease. Patient states that he was sitting on a stool and fell off and had experienced left sided weakness of the upper and lower extremities along with a facial droop. In April of this year, patient underwent barium swallow with normal study. Patient presented to [facility] emergency center for evaluation. CAT scan of the brain showed no acute intracranial hemorrhage or mi dline shift. No sniffing change from prior CAT scan. CT angiogram of the head and neck revealed no significant stenosis and common or internal carotid arteries bilaterally. No significant stenosis in the [place] of [place]. No significant change. Chest x-ray shows no acute cardio pulmonary process. EKG was a sinus rhythm with LVH. Repeat chest x-ray reveals some hypoventilatory changes. No acute process. WBC 7.7, hemoglobin 11.4, platelet count 317. INR 1.0. Sodium 134, potassium 4.6, chloride 99, CO2 27, BUN 39 and creatinine 1.45. Blood sugar 275. Liver function tests normal. Troponin negative. CK 123. Triglycerides 319, cholesterol 190, LDL 87, HDL 39. Urinalysis clear, nitrite and leukoesterase negative. Protein 2+, glucose 4+. Coronavirus not detected. Patient was admi nistered TPA per protocol and admitted into the intensive care unit, neurology consult. Initial NIH score 6 and following TPA NIH score 4. Patient has been seen by speech therapy and recommended ground foods with nectar thick liquids and aspiration precautions. Echocardiogram, MRI of the brain, hemoglobin A1c and ordered 07/01 patient remains in ICU. Continues to have left-sided weakness for no improvement has been made. Patient is scheduled for PETRA tomorrow. Vitals are stable. Have suggested a hemoglobin of 11.1 BUN 27 creatinine 1.38 LDL is 87 triglycerides 319 MRA evaluated does show bilateral acute infarcts involving the thalamus. Patient's source of stroke is likely embolic. Avoid anticoagulation or antiplatelet until approved by neurology. Patient initiated on amlodipine 10 mg by mouth daily. 07/02 patient examined bedside. He is able to answer questions appropriately. H as minimal improvement in the weakness involving the left upper and lower extremity. Patient underwent PETRA with no cardiac source of emboli noted. Anticoagulation to be started in 7 days per neurology recommendation post TPA. Vital SS patient has is afebrile respiratory rate of 82 pressure 132/76 oxygen saturation 96 percent on 2 L . CTA negative for any embolic source. Lipitor increased to 40 mg by mouth daily. Further recommendation and antiplatelet or anticoagulation per neurology post discharge. Patient is stable to be discharged, can be discharged to [facility] if bed available . We'll discuss the need to be on event monitor for 30 days with cardio REVIEW OF SYSTEMS Constitutional: No fever, no chills, no night sweats. No weight change. No weakness, fatigue or lethargy. No daytime sleepiness. EENT: No headache. No blurred vision or double vision, no loss of vision. No loss of Hearing, no ringing in the ears, no dizziness. No nasal drainage or congestion. No epistaxis. No sore throat. Lungs: No shortness of breath, cough, no sputum production. No wheezing. Cardiovascular: No chest pain, no lower extremity edema. No palpitations. No paroxysmal nocturnal dyspnea. No orthopnea. No lightheadedness or dizziness. No syncopal episodes. Abdominal: No abdominal pain. No nausea, vomiting. No diarrhea. No constipation. No bloody or tarry stools.. No loss of appetite. Genitourinary: No dysuria, increased frequency, urgency. No urinary retention. Musculoskeletal: No myalgias. No muscle weakness, no gait dysfunction, no frequent falls. No back pain. No neck pain. Integumentary: No wounds, no lesions. No rash or pruritus. No unusual bruising. No change in hair or nails. Neurologic: No aphasia. No facial droop. No change in mentation. No head injury. No headache. No paralysis. No paresthesia. Psychiatric: No depression. No anxiety. No mood swings. Endocrine: No abnormal blood sugars. No weight change. No excessive sweating or thirst. No cold intolerance. Objective - Vital Signs Vital signs: Vital Signs Temp 97.7 F 07/02/20 03:30 Pulse 82 07/02/20 11:12 Resp 20 07/02/20 11:12 BP 132/76 07/02/20 11:12 Pulse Ox 96 07/02/20 11:12 Intake & Output 07/01/20 07/02/20 07/02/20 17:59 06:59 18:59 Intake Total 150 Output Total Balance 150 Weight Intake: IV 150 Magnesium Sulfate-D5w Pmx 1 gm In Dextrose/Water 1 100ml.bag @ 100 mls/hr IVPB Q1H [facility]ERVIN Rx#: [id number] Sodium Chloride 0.9% 1, 000 ml @ 100 mls/hr IV . Q10H KERVIN Rx#:[id number] Oral Output: Urine Other: Voiding Method - Exam PHYSICAL EXAMINATION Gen: This is a 49-year-old male. Patient is resting in ICU bed and appears comfortable and in no acute distress. HEENT: Head is atraumatic, normocephalic. Pupils equal, round. Sclerae is anicteric. NECK: Supple. No JVD. No lymphadenopathy. No thyromegaly. LUNGS: Clear to auscultation. No wheezes or rhonchi. No intercostal retractions. HEART: Regular rate and rhythm. No murmur. ABDOMEN: Soft. Bowel sounds are present. No masses. No tenderness. EXTREMITIES: No pedal edema. No calf tenderness. Dorsalis pedis +2 bi laterally. NEUROLOGICAL: Patient is awake, alert and oriented x3. Decreased sensation to his face. Decrease reflexes on the left. Decreased sensation to the left lower extremity. 3/5 upper and lower ext weakness - Labs CBC & Chem 7: 07/02/20 06:21 07/02/20 06:21 Labs: Abnormal Lab Results - Last 24 Hours (Table) 07/01/20 07/01/20 07/01/20 Range/Units 14:41 16:34 20:56 RBC (4.30-5.90) m/uL Hgb (13.0-17.5) gm/dL Hct (39.0-53.0) % BUN (9-20) mg/dL Creatinine (0.66-1.25) mg/dL Glucose (74-99) mg/dL POC Glucose (mg/dL) 168 H 241 H 134 H (75-99) mg/dL 07/02/20 07/02/20 07/02/20 Range/Units 05:48 06:21 06:21 RBC 3.51 L (4.30-5.90) m/uL Hgb 10.2 L (13.0-17.5) gm/dL Hct 30.0 L (39.0-53.0) % BUN 23 H (9-20) mg/dL Creatinine 1.57 H (0.66-1.25) mg/dL Glucose 126 H (74-99) mg/dL POC Glucose (mg/dL) 126 H (75-99) mg/dL 07/02/20 Range/Units 12:19 RBC (4.30-5.90) m/uL Hgb (13.0-17.5) gm/dL Hct (39.0-53.0) % BUN (9-20) mg/dL Creatinine (0.66-1.25) mg/dL Glucose (74-99) mg/dL POC Glucose (mg/dL) 157 H (75-99) mg/dL Assessment and Plan Plan: ASSESSMENT AND PLAN 1. Acute embolic ischemic right sided stroke status post TPA. Hold anticoagulation and antiplatelets for 7 days Continue neuro checks per protocol. PETRA neg for embolic stroke. Patient does not have history of atrial fibrillation and previous carotid studies showed no stenosis. Patient may benefit for 30 days of event monitor on discharge 2. History of subacute ischemic cerebral infarct in 2019 presented as severe ve rtigo and patient was placed on Plavix at that time. 3. Diabetes mellitus type 2, insulin requiring. Patient will be resumed on NovoLog mix 7030 30 units with breakfast and 20 with supper along with NovoLog scale. 4. Diabetes neuropathy. Continue gabapentin 4 mg twice daily. 5. Hypertension. Amlodipine 10 mg by mouth daily added 6. Hyperlipidemia. Continue atorvastatin 40 mg at bedtime. 7. Diabetic gastroparesis and autonomic dysfunction, stable. 8. Chronic kidney disease stage III. 9. Benign prostatic hypertrophy. Continue Flomax or 0.4 mg daily. 10. Recurrent depression and generalized anxiety disorder. Continue venlafaxine 225 mg daily, Wellbutrin 150 mg twice daily, Abilify 10 mg at bedtime. 11. GI prophylaxis. Protonix. DISCHARGE PLAN To be determined. PT, OT, speech therapy following. Consult with Dr. Reilly for possible inpatient rehab. He went monitor on discharge
[2020-07-02 17:29] LABS: Glucose,Whole Blood 191 mg/dL (75-99)
[2020-07-02 20:31] LABS: Glucose,Whole Blood 133 mg/dL (75-99)
[2020-07-02] MEDS: ATORVASTATIN 80 MG TAB PO SCH (21:26)
[2020-07-02] MEDS: ARIPiprazole 10 MG TAB PO SCH (21:31)
[2020-07-03 05:57] LABS: Glucose,Whole Blood 94 mg/dL (75-99)
[2020-07-03] MEDS: INSULIN ASPART (NovoLOG) 100 UNIT/ML VIAL SQ SCH ×5 (06:33→21:23)
[2020-07-03] MEDS: SODIUM CHLORIDE 0.9% 1,000 ML IV SCH ×3 (06:51→17:52)
[2020-07-03] MEDS: PANTOPRAZOLE 40 MG/10 ML VIAL IV SCH (08:31)
[2020-07-03] MEDS: lisinopriL 10 MG TAB PO SCH (08:31)
[2020-07-03] MEDS: INSULN ASP PRT/INSULIN ASPART 100 UNIT/ML 10 ML VIAL SQ SCH ×2 (08:31→17:44)
[2020-07-03] MEDS: TAMSULOSIN 0.4 MG CAP.ER.24H PO SCH (08:31)
[2020-07-03] MEDS: amLODIPine 10 MG TAB PO SCH (08:31)
[2020-07-03] MEDS: GABAPENTIN 400 MG CAP PO SCH ×2 (08:31→20:54)
[2020-07-03] MEDS: VENLAFAXINE HCL ER 75 MG CAP PO SCH (08:32)
[2020-07-03] MEDS: POTASSIUM CHLORIDE ER 10 MEQ TAB.ER.PRT PO SCH ×3 (08:32→20:54)
[2020-07-03] MEDS: buPROPion SR 150 MG TABLET.ER PO SCH ×2 (08:32→20:54)
[2020-07-03] MEDS: HYDROcodone/APAP 7.5-325MG 1 EACH TAB PO PRN ×2 (08:41→17:45)
[2020-07-03 11:28] LABS: Calcium 8.2 mg/dL (8.4-10.2); Potassium 4.3 mmol/L (3.5-5.1)
[2020-07-03 12:19] LABS: Glucose,Whole Blood 175 mg/dL (75-99)
--- NOTE | 2020-07-03 13:55 | P.PN ---
Subjective Progress Note Date: 07/03/20 HISTORY OF PRESENT ILLNESS: 49-year-old male with a history of hypertension, previous CVA, and obstructive sleep apnea who was admitted to the hospital secondary to left-sided facial droop and left-sided weakness. Patient underwent computed tomography scan of the brain which was negative for hemorrhage or midline shift. Patient received TPA. Echocardiogram completed revealed normal LV function. He underwent PETRA yesterday which did not reveal any cardiac source of emboli. Telemetry reveals sinus mechanism. Blood pressure 130/77. Heart rate in the 80s. He is on room air with oxygen saturations greater than 92%. PHYSICAL EXAM: VITAL SIGNS: Reviewed. GENERAL: Well-developed in no acute distress. NECK: Supple. No JVD or thyromegaly LUNGS: Respirations even and unlabored. Lungs essentially clear to auscultation bilaterally. HEART: Regular rate and rhythm. S1 and S2 heard. EXTREMITIES: Decreased range of motion of left side. No clubbing or cyanosis. Peripheral pulses intact. No lower extremity edema ASSESSMENT: Acute ischemic CVA, status post post-TPA, status post PETRA without cardiac source of emboli History of subacute ischemic cerebral infarct Hypertension Hyperlipidemia Diabetes mellitus Chronic kidney disease PLAN: Continue current cardiac medications Continue telemetry monitoring to assess for any arrhythmias Patient to have event monitor placed at the time of discharge Stable for discharge from a cardiac standpoint. Patient to follow up with Dr. Shields outpatient Nurse practitioner note has been reviewed by physician. Signing provider agrees with the documented findings, assessment, and plan of care. Objective - Vital Signs Vital signs: Vital Signs Temp 97.7 F 07/03/20 08:00 Pulse 80 07/03/20 12:00 Resp 16 07/03/20 12:00 BP 130/77 07/03/20 12:00 Pulse Ox 90 L 07/03/20 12:00 Intake & Output 07/02/20 07/03/20 07/03/20 18:59 06:59 18:59 Intake Total 390 250 Output Total 500 700 475 Balance -110 -700 -225 Weight 101 kg Intake: IV 150 Oral 240 250 Output: Urine 500 700 475 Other: Voiding Method Indwelling Catheter Indwelling Catheter Indwelling Catheter - Labs CBC & Chem 7: 07/02/20 06:21 07/03/20 10:51 Labs: Abnormal Lab Results - Last 24 Hours (Table) 07/02/20 07/02/20 07/03/20 Range/Units 17:28 20:22 10:51 Creatinine 1.35 H (0.66-1.25) mg/dL Glucose 176 H (74-99) mg/dL POC Glucose (mg/dL) 191 H 133 H (75-99) mg/dL Calcium 8.2 L (8.4-10.2) mg/dL 07/03/20 Range/Units 12:17 Creatinine (0.66-1.25) mg/dL Glucose (74-99) mg/dL POC Glucose (mg/dL) 175 H (75-99) mg/dL Calcium (8.4-10.2) mg/dL
--- NOTE | 2020-07-03 14:32 | P.PN ---
Subjective Progress Note Date: 07/03/20 HISTORY OF PRESENT ILLNESS This is a 49-year-old male patient of Dr. Guillen with past medical history of subacute ischemic cerebral infarct in 2019 presenting with severe vertigo and started on Plavix, history of autonomic dysfunction related to diabetes, diabetes mellitus type 2 with gastro-paresis and diabetic neuropathy, hypertension, hyperlipidemia, chronic kidney disease stage III, hypothyroidism, benign prostatic hypertrophy, recurrent depression, gastroesophageal reflux disease. Patient states that he was sitting on a stool and fell off and had experienced left sided weakness of the upper and lower extremities along with a facial droop. In April of this year, patient underwent barium swallow with normal study. Patient presented to [facility] emergency center for evaluation. CAT scan of the brain showed no acute intracranial hemorrhage or mi dline shift. No sniffing change from prior CAT scan. CT angiogram of the head and neck revealed no significant stenosis and common or internal carotid arteries bilaterally. No significant stenosis in the [place]. No significant change. Chest x-ray shows no acute cardio pulmonary process. EKG was a sinus rhythm with LVH. Repeat chest x-ray reveals some hypoventilatory changes. No acute process. WBC 7.7, hemoglobin 11.4, platelet count 317. INR 1.0. Sodium 134, potassium 4.6, chloride 99, CO2 27, BUN 39 and creatinine 1.45. Blood sugar 275. Liver function tests normal. Troponin negative. CK 123. Triglycerides 319, cholesterol 190, LDL 87, HDL 39. Urinalysis clear, nitrite and leukoesterase negative. Protein 2+, glucose 4+. Coronavirus not detected. Patient was admi nistered TPA per protocol and admitted into the intensive care unit, neurology consult. Initial NIH score 6 and following TPA NIH score 4. Patient has been seen by speech therapy and recommended ground foods with nectar thick liquids and aspiration precautions. Echocardiogram, MRI of the brain, hemoglobin A1c and ordered 07/01 patient remains in ICU. Continues to have left-sided weakness for no improvement has been made. Patient is scheduled for PETRA tomorrow. Vitals are stable. Have suggested a hemoglobin of 11.1 BUN 27 creatinine 1.38 LDL is 87 triglycerides 319 MRA evaluated does show bilateral acute infarcts involving the thalamus. Patient's source of stroke is likely embolic. Avoid anticoagulation or antiplatelet until approved by neurology. Patient initiated on amlodipine 10 mg by mouth daily. 07/02 patient examined bedside. He is able to answer questions appropriately. H as minimal improvement in the weakness involving the left upper and lower extremity. Patient underwent PETRA with no cardiac source of emboli noted. Anticoagulation to be started in 7 days per neurology recommendation post TPA. Vital SS patient has is afebrile respiratory rate of 82 pressure 132/76 oxygen saturation 96 percent on 2 L . CTA negative for any embolic source. Lipitor increased to 40 mg by mouth daily. Further recommendation and antiplatelet or anticoagulation per neurology post discharge. Patient is stable to be discharged, can be discharged to [facility] if bed available . We'll discuss the need to be on event monitor for 30 days with cardio 07/03: Patient continues to have left-sided weakness. He is working with PT and OT. Plan is for inpatient rehab once insurance authorization has been obtained. Cardiology has made arrangements for event monitor to be placed prior to discharge. Discuss case with Dr. Ramos and plan is for repeat CAT scan of the brain on July 06 and if no bleed is noted, patient will be started on eliquis and aspirin or Plavix but not both. Patient will need follow-up with neurology. REVIEW OF SYSTEMS Constitutional: No fever, no chills, no night sweats. No weight change. No weakness, fatigue or lethargy. No daytime sleepiness. EENT: No headache. No blurred vision or double vision, no loss of vision. No loss of Hearing, no ringing in the ears, no dizziness. No nasal drainage or congestion. No epistaxis. No sore throat. Lungs: No shortness of breath, cough, no sputum production. No wheezing. Cardiovascular: No chest pain, no lower extremity edema. No palpitations. No paroxysmal nocturnal dyspnea. No orthopnea. No lightheadedness or dizziness. No syncopal episodes. Abdominal: No abdominal pain. No nausea, vomiting. No diarrhea. No constipation. No bloody or tarry stools.. No loss of appetite. Genitourinary: No dysuria, increased frequency, urgency. No urinary retention. Musculoskeletal: No myalgias. No muscle weakness, no gait dysfunction, no frequent falls. No back pain. No neck pain. Integumentary: No wounds, no lesions. No rash or pruritus. No unusual bruising. No change in hair or nails. Neurologic: No aphasia. No facial droop. No change in mentation. No head injury. No headache. No paralysis. No paresthesia. Psychiatric: No depression. No anxiety. No mood swings. Endocrine: No abnormal blood sugars. No weight change. No excessive sweating or thirst. No cold intolerance. PHYSICAL EXAMINATION Gen: This is a 49-year-old male. Patient is resting in ICU bed and appears comfortable and in no acute distress. HEENT: Head is atraumatic, normocephalic. Pupils equal, round. Sclerae is anicteric. NECK: Supple. No JVD. No lymphadenopathy. No thyromegaly. LUNGS: Clear to auscultation. No wheezes or rhonchi. No intercostal r etractions. HEART: Regular rate and rhythm. No murmur. ABDOMEN: Soft. Bowel sounds are present. No masses. No tenderness. EXTREMITIES: No pedal edema. No calf tenderness. Dorsalis pedis +2 bilater ally. NEUROLOGICAL: Patient is awake, alert and oriented x3. Decreased sensation to his face. Decrease reflexes on the left. Decreased sensation to the left lower extremity. 3/5 upper and lower ext weakness ASSESSMENT AND PLAN 1. Acute embolic ischemic right sided stroke status post TPA. Hold anticoagulation and antiplatelets for 7 days Continue neuro checks per protocol. PETRA neg for embolic stroke. Patient does not have history of atrial fibrillation and previous carotid studies showed no stenosis. Patient may benefit for 30 days of event monitor on discharge 2. History of subacute ischemic cerebral infarct in 2019 presented as severe vertigo and patient was placed on Plavix at that time. 3. Diabetes mellitus type 2, insulin requiring. Patient will be resumed on NovoLog mix 7030 30 units with breakfast and 20 with supper along with NovoLog scale. 4. Diabetes neuropathy. Continue gabapentin 4 mg twice daily. 5. Hypertension. Amlodipine 10 mg by mouth daily added 6. Hyperlipidemia. Continue atorvastatin 40 mg at bedtime. 7. Diabetic gastroparesis and autonomic dysfunction, stable. 8. Chronic kidney disease stage III. 9. Benign prostatic hypertrophy. Continue Flomax or 0.4 mg daily. 10. Recurrent depression and generalized anxiety disorder. Continue venlafaxine 225 mg daily, Wellbutrin 150 mg twice daily, Abilify 10 mg at bedtime. 11. GI prophylaxis. Protonix. DISCHARGE PLAN Inpatient rehab Impression and plan of care have been directed as dictated by the signing physician. Melvi Vieyra nurse practitioner acting as scribe for signing physician. Objective - Vital Signs Vital signs: Vital Signs Temp 97.7 F 07/03/20 08:00 Pulse 83 07/03/20 08:00 Resp 16 07/03/20 08:00 BP 147/81 07/03/20 08:00 Pulse Ox 95 07/03/20 08:00 Intake & Output 07/02/20 07/03/20 07/03/20 18:59 06:59 18:59 Intake Total 390 Output Total 500 700 Balance -110 -700 Weight 101 kg Intake: IV 150 Oral 240 Output: Urine 500 700 Other: Voiding Method Indwelling Catheter Indwelling Catheter - Labs CBC & Chem 7: 07/02/20 06:21 07/03/20 10:51 Labs: Abnormal Lab Results - Last 24 Hours (Table) 07/02/20 07/02/20 07/02/20 Range/Units 12:19 17:28 20:22 POC Glucose (mg/dL) 157 H 191 H 133 H (75-99) mg/dL
--- NOTE | 2020-07-03 14:34 | P.DS ---
Providers Date of admission: 06/29/20 22:11 Expected date of discharge: 07/04/20 Attending physician: Kera Ferrera MD Consults: 06/29/20 22:12 Consult Physician Routine Consulting Provider: Twan Wynne Consult Reason/Comments: ICU management status post TPA for stroke Do you want consulting provider notified?: Already Contacted 06/29/20 22:13 Consult Physician Routine Consulting Provider: Wil Beatty Consult Reason/Comments: CVA status post TPA Do you want consulting provider notified?: Yes 06/30/20 11:02 Consult Physician Routine Consulting Provider: Iggy Reilly Consult Reason/Comments: possible IPR Do you want consulting provider notified?: Yes Consult Physician Routine Consulting Provider: Iggy Reilly Consult Reason/Comments: stroke, IPR Do you want consulting provider notified?: Yes 06/30/20 11:20 Consult Physician Routine Consulting Provider: Tamara Shields Consult Reason/Comments: PETRA Do you want consulting provider notified?: Yes Primary care physician: Justine Guillen [facility] Course: HISTORY OF PRESENT ILLNESS This is a 49-year-old male patient of Dr. Guillen with past medical history of subacute ischemic cerebral infarct in 2019 presenting with severe vertigo and started on Plavix, history of autonomic dysfunction related to diabetes, diabetes mellitus type 2 with gastro-paresis and diabetic neuropathy, hypertension, hyperlipidemia, chronic kidney disease stage III, hypothyroidism, benign prostatic hypertrophy, recurrent depression, gastroesophageal reflux disease. Patient states that he was sitting on a stool and fell off and had experienced left sided weakness of the upper and lower extremities along with a facial droop. In April of this year, patient underwent barium swallow with normal study. Patient presented to [facility] emergency center for evaluation. CAT scan of the brain showed no acute intracranial hemorrhage or midline shift. No sniffing change from prior CAT scan. CT angiogram of the head and neck revealed no significant stenosis and common or internal carotid arteries bilaterally. No significant stenosis in the [place]. No significant change. Chest x-ray shows no acute cardio pulmonary process. EKG was a sinus rhythm with LVH. Repeat chest x-ray reveals some hypoventilatory changes. No acute process. WBC 7.7, hemoglobin 11.4, platelet count 317. INR 1.0. Sodium 134, potassium 4.6, chloride 99, CO2 27, BUN 39 and creatinine 1.45. Blood sugar 275. Liver function tests normal. Troponin negative. CK 123. Triglycerides 319, cholesterol 190, LDL 87, HDL 39. Urinalysis clear, nitrite and leukoesterase negative. Protein 2+, glucose 4+. Coronavirus not detected. Patient was administered TPA per protocol and admitted into the intensive care unit, neurology consult. Initial NIH score 6 and following TPA NIH score 4. Patient has been seen by speech therapy and recommended ground foods with nectar thick liquids and aspiration precautions. Echocardiogram, MRI of the brain, hemoglobin A1c and ordered 07/01 patient remains in ICU. Continues to have left-sided weakness for no improvement has been made. Patient is scheduled for PETRA tomorrow. Vitals are stable. Have suggested a hemoglobin of 11.1 BUN 27 creatinine 1.38 LDL is 87 triglycerides 319 MRA evaluated does show bilateral acute infarcts involving the thalamus. Patient's source of stroke is likely embolic. Avoid anticoagulation or antiplatelet until approved by neurology. Patient initiated on amlodipine 10 mg by mouth daily. 07/02 patient examined bedside. He is able to answer questions appropriately. Has minimal improvement in the weakness involving the left upper and lower extremity. Patient underwent PETRA with no cardiac source of emboli noted. Anticoagulation to be started in 7 days per neurology recommendation post TPA. Vital SS patient has is afebrile respiratory rate of 82 pressure 132/76 oxygen saturation 96 percent on 2 L . CTA negative for any embolic source. Lipitor increased to 40 mg by mouth daily. Further recommendation and antiplatelet or anticoagulation per neurology post discharge. Patient is stable to be disc harged, can be discharged to [facility] if bed available . We'll discuss the need to be on event monitor for 30 days with cardio 07/03: Patient continues to have left-sided weakness. He is working with PT and OT. Plan is for inpatient rehab once insurance authorization has been obtained. Cardiology has made arrangements for event monitor to be placed prior to discharge. Discuss case with Dr. Ramos and plan is for repeat CAT scan of the brain on July 06 and if no bleed is noted, patient will be started on eliquis and aspirin or Plavix but not both. Patient will need follow-up with neurology. 07/04: Patient has had no new concerns overnight. Rosado catheter will be removed today. COVID19 testing ordered. Patient has been afebrile, heart rate 78, blood pressure 1 4479, pulse ox 97% on room air. Blood sugars are running between 107 and 141. Homocystine 9.43. Protein C 104, anti-thrombin 3 AG 114, anti-thrombin 3 activity 119. Triglycerides 319, cholesterol 190, L DL 87, HDL 39. Hemoglobin A1c 9.7. Patient will be discharged to inpatient rehab once all arrangements are completed. Discharge diagnoses 1. Acute embolic ischemic right sided stroke status post TPA. 2. History of subacute ischemic cerebral infarct in 2019 presented as severe vertigo and patient was placed on Plavix at that time. 3. Diabetes mellitus type 2, insulin requiring. 4. Diabetes neuropathy. 5. Hypertension. 6. Hyperlipidemia. 7. Diabetic gastroparesis and autonomic dysfunction, stable. 8. Chronic kidney disease stage III. 9. Benign prostatic hypertrophy. 10. Recurrent depression and generalized anxiety disorder. DISCHARGE PLAN Inpatient rehab Impression and plan of care have been directed as dictated by the signing physician. Melvi Vieyra nurse practitioner acting as scribe for signing physician. Patient Condition at Discharge: Good Plan - Discharge Summary Discharge Rx Participant: No New Discharge Prescriptions: New amLODIPine [Norvasc] 10 mg PO DAILY tab INSULIN ASPART (NovoLOG) [NovoLOG (formulary)] 0 unit SQ ACHS vial lisinopriL [Zestril] 10 mg PO DAILY tab Continue Atorvastatin [Lipitor] 40 mg PO HS Cyclobenzaprine [Flexeril] 5 mg PO TID PRN PRN Reason: Muscle Spasm Venlafaxine HCl [Effexor XR] 225 mg PO DAILY Potassium Chloride ER [K-Dur 10] 10 meq PO BID Omeprazole 40 mg PO DAILY buPROPion HCL [Wellbutrin SR] 150 mg PO BID ARIPiprazole [Abilify] 10 mg PO HS Methylphenidate HCl 20 mg PO BID Silodosin [Rapaflo] 4 mg PO DAILY Insulin NPH Hum/Reg Insulin Hm [humuLIN 70/30 Kwikpen] 20 unit SQ AC-SUPPER Insulin NPH Hum/Reg Insulin Hm [humuLIN 70/30 Kwikpen] 30 unit SQ AC-BRKFST lisinopriL [Zestril] 5 mg PO DAILY Gabapentin 400 mg PO BID Hydrocodone/Acetaminophen [[place] 7.5-325] 1 tab PO TID Discharge Medication List Atorvastatin [Lipitor] 40 mg PO HS 09/04/16 [History] Cyclobenzaprine [Flexeril] 5 mg PO TID PRN 03/13/19 [History] ARIPiprazole [Abilify] 10 mg PO HS 03/27/20 [History] Omeprazole 40 mg PO DAILY 03/27/20 [History] Potassium Chloride ER [K-Dur 10] 10 meq PO BID 03/27/20 [History] Venlafaxine HCl [Effexor XR] 225 mg PO DAILY 03/27/20 [History] buPROPion HCL [Wellbutrin SR] 150 mg PO BID 03/27/20 [History] Gabapentin 400 mg PO BID 06/29/20 [History] Insulin NPH Hum/Reg Insulin Hm [humuLIN 70/30 Kwikpen] 20 unit SQ AC-SUPPER 06/29/20 [History] Insulin NPH Hum/Reg Insulin Hm [humuLIN 70/30 Kwikpen] 30 unit SQ AC-BRKFST 06/29/20 [History] Methylphenidate HCl 20 mg PO BID 06/29/20 [History] Silodosin [Rapaflo] 4 mg PO DAILY 06/29/20 [History] lisinopriL [Zestril] 5 mg PO DAILY 06/29/20 [History] Hydrocodone/Acetaminophen [[place] 7.5-325] 1 tab PO TID 06/30/20 [History] INSULIN ASPART (NovoLOG) [NovoLOG (formulary)] 0 unit SQ ACHS vial 07/03/20 [R x] amLODIPine [Norvasc] 10 mg PO DAILY tab 07/03/20 [Rx] lisinopriL [Zestril] 10 mg PO DAILY tab 07/03/20 [Rx] Follow up Appointment(s)/Referral(s): Justine Guillen MD [Primary Care Provider] - 1-2 days [facility], [NON-STAFF] - 1-2 Days Ambulatory/Diagnostic Orders: Miscellaneous Radiology Order [RAD.AMB] Location: None Selected Activity/Diet/Wound Care/Special Instructions: 30 day event monitor on discharge (they will set it up here) Patient to have repeat CAT scan of the brain on July 06 and if this is negative for bleed, start eliquis along with aspirin or eliquis. Discharge Disposition: OTHER INSTITUTION NOT DEFINED
[2020-07-03] MEDS ORDERED: ASPIRIN 325 MG TAB PO STA (15:31)
--- NOTE | 2020-07-03 15:34 | P.PN ---
Subjective Progress Note Date: 07/03/20 Seen at bedside for the first time and he was being followed up with Dr. Beatty and Dr. Yao, please refer to their notes for further neurological details. Patient notified me that since he had this recent stroke during this admission he could not move the left side. He stated that his symptoms has worsened since he's been the hospital. He stated that he had a stroke 3 years ago he had difficulty and somewhat resolved but stated that that he was not taking any antiplatelets or statins after that. Also the patient's mother came to the patient's room and she acknowledged the patient wasn't on and the antiplatelet or statins. She stated that the there is a family history of stroke as in his grandmother but she was in her 70 nobody had strokes in their young such as 50s or 40s or earlier. Patient had the stroke workup and he was told the unknown reason for stroke in the past. He had a transesophageal echocardiogram on 07/02/2020 and it's reported as normal study. No cardiac source of emboli on the study. Upon asking the patient nurse why the patient was not sign and anti-platelets she stated that this was reported to her that to hold off for 1 week after TPA and that's that basically the masses that has been passed on according to the nurse (but unsure who gave that order/information to nursing staff). Objective - Vital Signs Vital signs: Vital Signs Temp 97.7 F 07/03/20 08:00 Pulse 80 07/03/20 12:00 Resp 16 07/03/20 12:00 BP 130/77 07/03/20 12:00 Pulse Ox 90 L 07/03/20 12:00 Intake & Output 07/02/20 07/03/20 07/03/20 18:59 06:59 18:59 Intake Total 390 250 Output Total 500 700 475 Balance -110 -700 -225 Weight 101 kg Intake: IV 150 Oral 240 250 Output: Urine 500 700 475 Other: Voiding Method Indwelling Catheter Indwelling Catheter Indwelling Catheter - Exam Gen.: The patient is reclining in the bed. He is well-nourished, well-developed and in no acute distress. HEENT: Head is atraumatic, normocephalic. Fundus not visualized. There is no scleral icterus. Mucous membranes are moist. The patient is found to have pocketing of food in the left side of his mouth. He is unaware that the fluid is present. Neurologic examination Higher mental status. Mental status: The patient is awake, alert and oriented 3. No aphasia or neglect. Cranial nerves: Pupils are equal, round and reactive to light. Visual márquez are full to confrontation. Extraocular movements are intact. There is no nystagmus. Facial sensation is intact. There is mild left facial droop. Hearing is grossly intact. Shoulder shrug is absent on the left. Tongue protrudes midline and with protrusion of the tongue. Mild dysarthria. Motor: Left upper and lower extremities are flaccid While right sided is 5/5. Sensation: Grossly intact to light touch. There is no extinction with double simultaneous stimulation. There is distal gradient sensory loss in the feet. Deep tendon reflexes: 2+/4+ in the bilateral upper extremities. Left patellar reflex 2+/4+. Right patellar reflex 1+/4+. Achilles reflexes are absent. - Labs CBC & Chem 7: 07/02/20 06:21 07/03/20 10:51 Labs: Abnormal Lab Results - Last 24 Hours (Table) 07/02/20 07/02/20 07/03/20 Range/Units 17:28 20:22 10:51 Creatinine 1.35 H (0.66-1.25) mg/dL Glucose 176 H (74-99) mg/dL POC Glucose (mg/dL) 191 H 133 H (75-99) mg/dL Calcium 8.2 L (8.4-10.2) mg/dL 07/03/20 Range/Units 12:17 Creatinine (0.66-1.25) mg/dL Glucose (74-99) mg/dL POC Glucose (mg/dL) 175 H (75-99) mg/dL Calcium (8.4-10.2) mg/dL Assessment and Plan Assessment: 1. Acute bilateral ischemic stroke (thalamus). Seems embolic infarcts 2. History of old stroke (3 years ago per patient has speech difficulty but was not compliant with antiplatelet or statin). 3. Poorly controlled diabetes mellitus 4. History of hypertension 5. Hyperlipidemia Plan: She had a transesophageal echocardiogram on 07/02/2020 and it's reported as normal study. No cardiac source of emboli on the study. Hemoglobin A1c is elevated at 9.7. Triglycerides are elevated at 312. MR the brain is reported as there is confirmational small bilateral acute infarct just lateral to the lateral thalamus aspect of the right thalamus as well as the lateral aspect of the left thalamus I started the patient on aspirin 81 mg starting tomorrow but 325mg once STAT. I do agree with Dr. Yao that likely that anti-correlation is needed in light of the embolic infarcts and recommend 7 days before starting anticoagulation. Recommend repeating a CT of the head on the 07/06/2020 and if it's negative for any bleed or any new large stroke then can start Eliquis in addition to ASA 81mg daily. Continue Lipitor 80mg daily. Event monitor is ordered. I ordered MANNY, [id number], factor V Leiden, anti-thrombin the antigen activity, homocystine, methylmalonic acid, mph FR, protein C and protein S activity and Von Willebran factor antigen. I did not order factor VII 8 since I can find in the system but could be done as outpatient. I highly recommend the patient gets hypercoagulable workup and this can be done as an outpatient. Cardiology is on board. We'll defer the rest of the medical management to the primary team. Patient will likely be discharged tomorrow but he was to follow up with a neurologist as an outpatient within the one week. He also needs to follow-up with cardiology team as an outpatient. Plan was discussed with the patient as well as the patient's mother. Also the plan was discussed with the patient's nurse. Uziel Ramos MD Neuro-hospitalist Time with Patient: Less than 30
[2020-07-03 17:19] LABS: Glucose,Whole Blood 107 mg/dL (75-99)
[2020-07-03 20:12] LABS: Glucose,Whole Blood 118 mg/dL (75-99)
[2020-07-03] MEDS: ATORVASTATIN 80 MG TAB PO SCH (20:54)
[2020-07-03] MEDS: ARIPiprazole 10 MG TAB PO SCH (20:54)
[2020-07-04] MEDS: HYDROcodone/APAP 7.5-325MG 1 EACH TAB PO PRN ×2 (01:01→13:09)
[2020-07-04 05:48] VITALS: TEMP 98.1
[2020-07-04] MEDS: SODIUM CHLORIDE 0.9% 1,000 ML IV SCH ×3 (05:51→13:06)
[2020-07-04 06:09] LABS: Glucose,Whole Blood 141 mg/dL (75-99)
[2020-07-04] MEDS: buPROPion SR 150 MG TABLET.ER PO SCH (07:57)
[2020-07-04] MEDS: VENLAFAXINE HCL ER 75 MG CAP PO SCH (07:57)
[2020-07-04] MEDS: GABAPENTIN 400 MG CAP PO SCH (07:57)
[2020-07-04] MEDS: lisinopriL 10 MG TAB PO SCH (07:57)
[2020-07-04] MEDS: amLODIPine 10 MG TAB PO SCH (07:57)
[2020-07-04] MEDS: TAMSULOSIN 0.4 MG CAP.ER.24H PO SCH (07:58)
[2020-07-04] MEDS: INSULIN ASPART (NovoLOG) 100 UNIT/ML VIAL SQ SCH ×2 (07:58→13:03)
[2020-07-04] MEDS: PANTOPRAZOLE 40 MG/10 ML VIAL IV SCH (07:58)
[2020-07-04] MEDS: POTASSIUM CHLORIDE ER 10 MEQ TAB.ER.PRT PO SCH (07:58)
[2020-07-04] MEDS: INSULN ASP PRT/INSULIN ASPART 100 UNIT/ML 10 ML VIAL SQ SCH (07:59)
[2020-07-04] MEDS ORDERED: ASPIRIN 81 MG PO SCH (09:00)
[2020-07-04 09:26] LABS: Anti-Thrombin III Activity 119 % (79-109)
[2020-07-04 09:48] LABS: Protein C (Activity) 104 % (71-138)
[2020-07-04 10:38] LABS: Anti-Thrombin III Antigen 114 % (80 - 120)
[2020-07-04 12:23] LABS: Glucose,Whole Blood 175 mg/dL (75-99)
[2020-07-04 12:40] VITALS: BP 132/77; PULSE 82; RESP 19
[2020-07-04 13:25] LABS: Glucose,Whole Blood 303 mg/dL (75-99)
--- NOTE | 2020-07-04 14:46 | P.PN ---
Subjective Progress Note Date: 07/04/20 HISTORY OF PRESENT ILLNESS: 07/03/2020 49-year-old male with a history of hypertension, previous CVA, and obstructive sleep apnea who was admitted to the hospital secondary to left-sided facial droop and left-sided weakness. Patient underwent computed tomography scan of the brain which was negative for hemorrhage or midline shift. Patient received TPA. Echocardiogram completed revealed normal LV function. He underwent PETRA yesterday which did not reveal any cardiac source of emboli. Telemetry reveals sinus mechanism. Blood pressure 130/77. Heart rate in the 80s. He is on room air with oxygen saturations greater than 92%. 07/04/2020 Patient examined this morning at the bedside. Patient denies chest pain or pressure. He denies shortness of breath. Blood pressure 152/66. Heart rate in the 60s. Telemetry reviewed without any evidence of arrhythmias. PHYSICAL EXAM: VITAL SIGNS: Reviewed. GENERAL: Well-developed in no acute distress. NECK: Supple. No JVD or thyromegaly LUNGS: Respirations even and unlabored. Lungs essentially clear to auscultation bilaterally. HEART: Regular rate and rhythm. S1 and S2 heard. EXTREMITIES: Decreased range of motion of left side. No clubbing or cyanosis. Peripheral pulses intact. No lower extremity edema ASSESSMENT: Acute ischemic CVA, status post post-TPA, status post PETRA without cardiac source of emboli History of subacute ischemic cerebral infarct Hypertension Hyperlipidemia Diabetes mellitus Chronic kidney disease PLAN: Continue current cardiac medications Continue telemetry monitoring to assess for any arrhythmias Patient to have event monitor placed at the time of discharge Stable for discharge from a cardiac standpoint. Patient to follow up with Dr. Shields outpatient Nurse practitioner note has been reviewed by physician. Signing provider agrees with the documented findings, assessment, and plan of care. Objective - Vital Signs Vital signs: Vital Signs Temp 98.1 F 07/04/20 04:00 Pulse 82 07/04/20 12:00 Resp 19 07/04/20 12:00 BP 132/77 07/04/20 12:00 Pulse Ox 93 L 07/04/20 12:00 Intake & Output 07/03/20 07/04/20 07/04/20 18:59 06:59 18:59 Intake Total 500 150 Output Total 475 2400 1000 Balance 25 -2250 -1000 Weight 106 kg Intake: Oral 500 150 Output: Urine 475 2400 1000 Other: Voiding Method Indwelling Catheter Indwelling Catheter Indwelling Catheter - Labs CBC & Chem 7: 07/02/20 06:21 07/03/20 10:51 Labs: Abnormal Lab Results - Last 24 Hours (Table) 06/29/20 07/03/20 07/03/20 Range/Units 19:22 16:03 17:18 Antithrombin III Activ 119 H (79-109) % POC Glucose (mg/dL) 303 H 107 H (75-99) mg/dL 07/03/20 07/04/20 07/04/20 Range/Units 20:11 06:08 12:21 Antithrombin III Activ (79-109) % POC Glucose (mg/dL) 118 H 141 H 175 H (75-99) mg/dL
--- NOTE | 2020-07-04 17:59 | P.PN ---
Subjective Progress Note Date: 07/05/19 Patient was seen at bedside and feels about the same today compared to yesterday. He doesn't feel any worsening the of his neurological status. Objective - Vital Signs Vital signs: Vital Signs Temp 98.1 F 07/04/20 04:00 Pulse 82 07/04/20 12:00 Resp 19 07/04/20 12:00 BP 132/77 07/04/20 12:00 Pulse Ox 93 L 07/04/20 12:00 Intake & Output 07/03/20 07/04/20 07/04/20 18:59 06:59 18:59 Intake Total 500 150 Output Total 475 2400 1000 Balance 25 -2250 -1000 Weight 106 kg Intake: Oral 500 150 Output: Urine 475 2400 1000 Other: Voiding Method Indwelling Catheter Indwelling Catheter Indwelling Catheter - Exam Gen.: The patient is reclining in the bed. He is well-nourished, well-developed and in no acute distress. HEENT: Head is atraumatic, normocephalic. Fundus not visualized. There is no scleral icterus. Mucous membranes are moist. The patient is found to have pocketing of food in the left side of his mouth. He is unaware that the fluid is present. Neurologic examination Higher mental status. Mental status: The patient is awake, alert and oriented 3. No aphasia or neglect. Cranial nerves: Pupils are equal, round and reactive to light. Visual márquez are full to confrontation. Extraocular movements are intact. There is no nystagmus. Facial sensation is intact. There is mild left facial droop. Hearing is grossly intact. Shoulder shrug is absent on the left. Tongue protrudes midline and with protrusion of the tongue. Mild dysarthria. Motor: Left upper and lower extremities are flaccid While right sided is 5/5. Sensation: Grossly intact to light touch. There is no extinction with double simultaneous stimulation. There is distal gradient sensory loss in the feet. Deep tendon reflexes: 2+/4+ in the bilateral upper extremities. Left patellar reflex 2+/4+. Right patellar reflex 1+/4+. Achilles reflexes are absent. - Labs CBC & Chem 7: 07/02/20 06:21 07/03/20 10:51 Labs: Abnormal Lab Results - Last 24 Hours (Table) 06/29/20 07/03/20 07/03/20 Range/Units 19:22 16:03 20:11 Antithrombin III Activ 119 H (79-109) % POC Glucose (mg/dL) 303 H 118 H (75-99) mg/dL 07/04/20 07/04/20 Range/Units 06:08 12:21 Antithrombin III Activ (79-109) % POC Glucose (mg/dL) 141 H 175 H (75-99) mg/dL Assessment and Plan Assessment: 1. Acute bilateral ischemic stroke (thalamus). Seems embolic infarcts 2. History of old stroke (3 years ago per patient has speech difficulty but was not compliant with antiplatelet or statin). 3. Poorly controlled diabetes mellitus 4. History of hypertension 5. Hyperlipidemia Plan: She had a transesophageal echocardiogram on 07/02/2020 and it's reported as normal study. No cardiac source of emboli on the study. Hemoglobin A1c is elevated at 9.7. Triglycerides are elevated at 312. MR the brain is reported as there is confirmational small bilateral acute infarct just lateral to the lateral thalamus aspect of the right thalamus as well as the lateral aspect of the left thalamus Continue aspirin 81 mg. I do agree with Dr. Yao that likely that anti- correlation is needed in light of the embolic infarcts and recommend 7 days before starting anticoagulation. Recommend repeating a CT of the head on the 07/06/2020 and if it's negative for any bleed or any new large stroke then can start Eliquis in addition to ASA 81mg daily. Continue Lipitor 80mg daily. Event monitor is ordered. I ordered MANNY, [id number], factor V Leiden, methylmalonic acid, MTHFR, protein S activity and Von Willebran factor antigen. I did not order factor VII/VIII since I can find in the system but could be done as outpatient. Can get the rest of hypercoagulable as outpatient anti-thrombin III antigen activity: 119 (normal 79-109)--not sure if reactive or not. antithrombin III antigen: 114: normal Protein C: 104 normal homocystine 9.43 normal Cardiology is on board. We'll defer the rest of the medical management to the primary team. Patient will likely be discharged today but he was to follow up with a neurologist as an outpatient within the one week. He also needs to follow-up with cardiology team as an outpatient. Plan was discussed with the patient as well as the patient's nurse. Uziel Ramos MD Neuro-hospitalist Time with Patient: Less than 30
[2020-07-05 06:54] LABS: Methylmalonic Acid 0.13 umol/L (<0.40)
[2020-07-05 07:31] LABS: Anti-DNA, DS unit <1.0 IU/mL; DNA Double-Stranded NEGATIVE (NEGATIVE)
[2020-07-05] MEDS ORDERED: PANTOPRAZOLE 40 MG TABLET PO SCH (09:00)
--- NOTE | 2020-09-04 14:07 | EM ---
EVENT MONITOR A 30-day event monitor report. Available tracings were noted. Patient has basically a sinus rhythm. No significant arrhythmia detected. FINAL IMPRESSION: Available recordings on the event monitor suggests sinus rhythm. No arrhythmia was noted. Specifically no atrial fibrillation was noted. MARVIN / MAHESHN: [id number] /
== END 2020-07-04 15:20 | DRG 62 ==
LOC: EC 19:20 → 2SICU 22:11 → 3SCARD 07-01 23:58
PROVIDERS: ADMIT Internal Medicine; ATTEND Internal Medicine
PROC: 3E03317 Introduction of Other Thrombolytic into Peripheral Vein, Percutaneous Approach (ICD-10-PCS; principal; 2020-06-29)
PROC: B246ZZ4 Ultrasonography of Right and Left Heart, Transesophageal (ICD-10-PCS; 2020-07-02)
DX: I63.40 Cerebral infarction due to embolism of unspecified cerebral artery (principal); F33.9 Major depressive disorder, recurrent, unspecified; N17.9 Acute kidney failure, unspecified; G81.04 Flaccid hemiplegia affecting left nondominant side; I63.81 Other cerebral infarction due to occlusion or stenosis of small artery; E11.42 Type 2 diabetes mellitus with diabetic polyneuropathy; E11.22 Type 2 diabetes mellitus with diabetic chronic kidney disease; E11.43 Type 2 diabetes mellitus with diabetic autonomic (poly)neuropathy; E11.65 Type 2 diabetes mellitus with hyperglycemia; Z79.4 Long term (current) use of insulin; N18.30 Chronic kidney disease, stage 3 unspecified; Z20.822 Contact with and (suspected) exposure to COVID-19; K02.9 Dental caries, unspecified; K31.84 Gastroparesis; E03.9 Hypothyroidism, unspecified; E78.5 Hyperlipidemia, unspecified; I12.9 Hypertensive chronic kidney disease with stage 1 through stage 4 chronic kidney disease, or unspecified chronic kidney disease; K21.9 Gastro-esophageal reflux disease without esophagitis; N40.0 Benign prostatic hyperplasia without lower urinary tract symptoms; R29.706 NIHSS score 6; R29.704 NIHSS score 4; F41.1 Generalized anxiety disorder; R47.81 Slurred speech; M43.12 Spondylolisthesis, cervical region; E66.9 Obesity, unspecified; G47.33 Obstructive sleep apnea (adult) (pediatric); Z71.3 Dietary counseling and surveillance; Z68.35 Body mass index [BMI] 35.0-35.9, adult; Z79.899 Other long term (current) drug therapy; Z98.42 Cataract extraction status, left eye; Z98.41 Cataract extraction status, right eye; Z86.14 Personal history of Methicillin resistant Staphylococcus aureus infection; Z86.73 Personal history of transient ischemic attack (TIA), and cerebral infarction without residual deficits; Z88.8 Allergy status to other drugs, medicaments and biological substances; Z82.3 Family history of stroke; Z83.3 Family history of diabetes mellitus
CPT/HCPCS: 36415; 37195; 70450; 70496; 70498; 70551; 71045; 71046; 80048; 80053; 80061; 81001; 81241; 81291; 82550; 83036; 83090; 83735; 83921; 84100; 84484; 85025; 85246; 85300; 85301; 85303; 85306; 85610; 85730; 86038; 86225; 87635; 93005; 93270; 93306; 93312; 93320; 93325; 99291

== ENCOUNTER → 2021-01-20 | Outpatient (CLI) | payer OTHER ==
[2021-01-21 22:27] LABS: African American GFR (CKD) 38.5 (60.0-200.0); Anion Gap 16.3 mmol/L (4.00-12.00); BUN/Creat Ratio 19.51 Ratio (12.00-20.00); Blood Urea Nitrogen 43.7 mg/dL (9.0-27.0); Calcium 9.4 mg/dL (8.7-10.3); Carbon Dioxide 21.9 mmol/L (21.6-31.8); Chol/HDL Ratio 4.17 Ratio; HDL Cholesterol 39.8 mg/dL (40.00-60.00); LDL Cholesterol,Calculated 87.6 mg/dL (0.0-131.0); Non-African American GFR(CKD) 33.2 (60.0-200.0); Potassium 4.8 mmol/L (3.5-5.5); VLDL Calculation 38.6 mg/dL (5.00-40.00)
== END | disposition home or self-care (01) ==
LOC: LABWHC1 11:49
PROVIDERS: ATTEND Nurse Practitioner
DX: E11.65 Type 2 diabetes mellitus with hyperglycemia (principal); E78.5 Hyperlipidemia, unspecified
CPT/HCPCS: 36415; 80048; 80061; 83036

== ENCOUNTER 2021-05-17 10:45 | Emergency (ER) | payer OTHER ==
[2021-05-17] MEDS ORDERED: KETOROLAC 15 MG/ML 1 ML VIAL IVP STA (11:09)
[2021-05-17] MEDS ORDERED: SODIUM CHLORIDE 0.9% 500 ML 500 ML IV STA (11:09)
--- NOTE | 2021-05-17 11:15 | ED ---
General Adult HPI - General Chief complaint: Abdominal Pain Stated complaint: rt sided abd pain Time Seen by Provider: 05/17/21 11:05 Source: patient, RN notes reviewed, old records reviewed Mode of arrival: ambulatory Limitations: no limitations - History of Present Illness Initial comments: 50-year-old male, alert and oriented 4, presents to the emergency room with complaints of right flank pain that started yesterday. He states is worse with movement. He has not experienced this pain before. He does have a history of cystitis, diabetes, GERD and hypertension. He states that he normally only urinates 3 times a day. Denies any fevers, nausea, vomiting or diarrhea. He states he took Corona 7.5 with no relief. -: days(s) (2) Location: right (flank) Severity scale (1-10): 10 Consistency: constant Improves with: immobilization Worsens with: movement Associated Symptoms: denies other symptoms Treatments Prior to Arrival: other (norco 7.5) - Related Data Home Medications Medication Instructions Recorded Confirmed Atorvastatin [Lipitor] 40 mg PO HS 09/04/16 06/29/20 Cyclobenzaprine [Flexeril] 5 mg PO TID PRN 03/13/19 06/29/20 ARIPiprazole [Abilify] 10 mg PO HS 03/27/20 06/29/20 Omeprazole 40 mg PO DAILY 03/27/20 06/29/20 Potassium Chloride ER [K-Dur 10] 10 meq PO BID 03/27/20 06/29/20 Venlafaxine HCl [Effexor XR] 225 mg PO DAILY 03/27/20 06/29/20 buPROPion HCL [Wellbutrin SR] 150 mg PO BID 03/27/20 06/29/20 Gabapentin 400 mg PO BID 06/29/20 06/29/20 Insulin NPH Hum/Reg Insulin Hm 20 unit SQ AC-SUPPER 06/29/20 06/29/20 [humuLIN 70/30 Kwikpen] Insulin NPH Hum/Reg Insulin Hm 30 unit SQ AC-BRKFST 06/29/20 06/29/20 [humuLIN 70/30 Kwikpen] Methylphenidate HCl 20 mg PO BID 06/29/20 06/29/20 Silodosin [Rapaflo] 4 mg PO DAILY 06/29/20 06/29/20 lisinopriL [Zestril] 5 mg PO DAILY 06/29/20 06/29/20 Hydrocodone/Acetaminophen [Corona 1 tab PO TID 06/30/20 06/30/20 7.5-325] Previous Rx's Medication Instructions Recorded INSULIN ASPART (NovoLOG) [NovoLOG 0 unit SQ ACHS vial 07/03/20 (formulary)] amLODIPine [Norvasc] 10 mg PO DAILY tab 07/03/20 lisinopriL [Zestril] 10 mg PO DAILY tab 07/03/20 Aspirin 81 mg PO DAILY #30 chewable 07/04/20 Allergies Allergy/AdvReac Type Severity Reaction Status Date / Time lactose AdvReac Nausea & Verified 05/17/21 10:49 Vomiting & Diarrhea Review of Systems ROS Statement: Those systems with pertinent positive or pertinent negative responses have been documented in the HPI. ROS Other: All systems not noted in ROS Statement are negative. Past Medical History Past Medical History: CVA/TIA, Diabetes Mellitus, GERD/Reflux, Hypertension, Sleep Apnea/CPAP/BIPAP Additional Past Medical History / Comment(s): neuropathy carpel tunnel borderline bipolar History of Any Multi-Drug Resistant Organisms: MRSA Date of last positivie culture/infection: 04/22/16 MDRO Source:: Right Hand Past Surgical History: Orthopedic Surgery Additional Past Surgical History / Comment(s): Colonscopy (B) eye cataract surg, (R) hand surgery Past Anesthesia/Blood Transfusion Reactions: No Reported Reaction Past Psychological History: Anxiety, Bipolar, Depression Smoking Status: Never smoker Past Alcohol Use History: None Reported Past Drug Use History: None Reported - Past Family History Mother Family Medical History: Diabetes Mellitus, Renal Disease Additional Family Medical History / Comment(s): Mother is alive at age 61 with history of diabetes (wears insulin pump). Patient does not have any contact with his father. Brother(s) Additional Family Medical History / Comment(s): Patient has 2 brothers and one has history of diabetes and one has no major medical problems. Patient does not have any sisters. Patient does not have any children. General Exam Limitations: no limitations General appearance: alert, in no apparent distress Head exam: Present: atraumatic, normocephalic, normal inspection Eye exam: Present: normal appearance, EOMI. Absent: scleral icterus, conjunctival injection, periorbital swelling ENT exam: Present: normal exam, normal oropharynx, mucous membranes moist Neck exam: Present: normal inspection, full ROM. Absent: tenderness, meningismus Respiratory exam: Present: normal lung sounds bilaterally. Absent: respiratory distress, wheezes, rales, rhonchi, stridor, accessory muscle use Cardiovascular Exam: Present: regular rate. Absent: JVD GI/Abdominal exam: Present: soft. Absent: distended, guarding, rebound, rigid Back exam: Present: normal inspection, full ROM, CVA tenderness (R), paraspinal tenderness (Right lumbar sacral) Neurological exam: Present: alert, oriented X3 Psychiatric exam: Present: normal affect, normal mood Skin exam: Present: warm, dry, intact, normal color. Absent: rash, cyanosis, diaphoretic Course Vital Signs 05/17/21 05/17/21 10:49 14:06 Temperature 98.0 F 98.2 F Pulse Rate 79 85 Respiratory 20 18 Rate Blood Pressure 148/88 129/81 O2 Sat by Pulse 97 98 Oximetry Medical Decision Making - Medical Decision Making 50-year-old male presents with complaints of right flank pain that started yesterday worse with movement. He does have a history of cystitis, diabetes, GERD and hypertension. Denies any fevers, nausea, vomiting or diarrhea. Ultrasound renals and bladder show no evidence of hydronephrosis. There is no nephrolithiasis seen. Urinary bladder is anechoic. X-ray the abdomen shows mild fecal retention. Organomegaly is not evident. There is no evidence of leukocytosis. Hemoglobin and hematocrit are stable. BUN and creatinine are unchanged from patient's previous elevations. There is no evidence of urinary tract infection. This is likely gas pain with constipation. He was offered an enema and refused. He states he is feeling better and will be discharged to follow-up with his primary care doctor on Friday. Return to the emergency room with a new worsening symptoms. He is agreeable to this plan of care. Case discussed with Dr Fletcher. - Lab Data Result diagrams: 05/17/21 11:26 05/17/21 11:26 Lab Results 05/17/21 05/17/21 05/17/21 Range/Units 11:26 11:26 11:26 WBC 9.2 (3.8-10.6) k/uL RBC 3.91 L (4.30-5.90) m/uL Hgb 10.9 L (13.0-17.5) gm/dL Hct 33.9 L (39.0-53.0) % MCV 86.8 (80.0-100.0) fL MCH 27.9 (25.0-35.0) pg MCHC 32.1 (31.0-37.0) g/dL RDW 13.3 (11.5-15.5) % Plt Count 387 (150-450) k/uL MPV 6.5 Neutrophils % 73 % Lymphocytes % 17 % Monocytes % 4 % Eosinophils % 3 % Basophils % 0 % Neutrophils # 6.8 (1.3-7.7) k/uL Lymphocytes # 1.6 (1.0-4.8) k/uL Monocytes # 0.4 (0-1.0) k/uL Eosinophils # 0.3 (0-0.7) k/uL Basophils # 0.0 (0-0.2) k/uL Sodium 137 (137-145) mmol/L Potassium 4.9 (3.5-5.1) mmol/L Chloride 103 (98-107) mmol/L Carbon Dioxide 26 (22-30) mmol/L Anion Gap 8 mmol/L BUN 44 H (9-20) mg/dL Creatinine 1.98 H (0.66-1.25) mg/dL Est GFR (CKD-EPI)AfAm 45 (>60 ml/min/1.73 sqM) Est GFR (CKD-EPI)NonAf 39 (>60 ml/min/1.73 sqM) Glucose 193 H (74-99) mg/dL Plasma Lactic Acid Andrea (0.7-2.0) mmol/L Calcium 9.3 (8.4-10.2) mg/dL Total Bilirubin 0.3 (0.2-1.3) mg/dL AST 18 (17-59) U/L ALT 17 (4-49) U/L Alkaline Phosphatase 127 H (38-126) U/L Total Protein 6.9 (6.3-8.2) g/dL Albumin 4.0 (3.5-5.0) g/dL Amylase 50 (30-110) U/L Lipase 124 (23-300) U/L Urine Color Light Yellow Urine Appearance Clear (Clear) Urine pH 6.0 (5.0-8.0) Ur Specific [place] 1.014 (1.001-1.035) Urine Protein 2+ H (Negative) Urine Glucose (UA) 4+ H (Negative) Urine Ketones Negative (Negative) Urine Blood Trace H (Negative) Urine Nitrite Negative (Negative) Urine Bilirubin Negative (Negative) Urine Urobilinogen <2.0 (<2.0) mg/dL Ur Leukocyte Esterase Negative (Negative) Urine RBC 1 (0-5) /hpf Urine WBC 1 (0-5) /hpf Hyaline Casts 9 H (0-2) /lpf Urine Mucus Rare H (None) /hpf 05/17/21 Range/Units 11:26 WBC (3.8-10.6) k/uL RBC (4.30-5.90) m/uL Hgb (13.0-17.5) gm/dL Hct (39.0-53.0) % MCV (80.0-100.0) fL MCH (25.0-35.0) pg MCHC (31.0-37.0) g/dL RDW (11.5-15.5) % Plt Count (150-450) k/uL MPV Neutrophils % % Lymphocytes % % Monocytes % % Eosinophils % % Basophils % % Neutrophils # (1.3-7.7) k/uL Lymphocytes # (1.0-4.8) k/uL Monocytes # (0-1.0) k/uL Eosinophils # (0-0.7) k/uL Basophils # (0-0.2) k/uL Sodium (137-145) mmol/L Potassium (3.5-5.1) mmol/L Chloride (98-107) mmol/L Carbon Dioxide (22-30) mmol/L Anion Gap mmol/L BUN (9-20) mg/dL Creatinine (0.66-1.25) mg/dL Est GFR (CKD-EPI)AfAm (>60 ml/min/1.73 sqM) Est GFR (CKD-EPI)NonAf (>60 ml/min/1.73 sqM) Glucose (74-99) mg/dL Plasma Lactic Acid Adnrea 1.0 (0.7-2.0) mmol/L Calcium (8.4-10.2) mg/dL Total Bilirubin (0.2-1.3) mg/dL AST (17-59) U/L ALT (4-49) U/L Alkaline Phosphatase (38-126) U/L Total Protein (6.3-8.2) g/dL Albumin (3.5-5.0) g/dL Amylase (30-110) U/L Lipase (23-300) U/L Urine Color Urine Appearance (Clear) Urine pH (5.0-8.0) Ur Specific [place] (1.001-1.035) Urine Protein (Negative) Urine Glucose (UA) (Negative) Urine Ketones (Negative) Urine Blood (Negative) Urine Nitrite (Negative) Urine Bilirubin (Negative) Urine Urobilinogen (<2.0) mg/dL Ur Leukocyte Esterase (Negative) Urine RBC (0-5) /hpf Urine WBC (0-5) /hpf Hyaline Casts (0-2) /lpf Urine Mucus (None) /hpf Disposition Clinical Impression: Abdominal pain Disposition: HOME SELF-CARE Condition: Good Instructions (If sedation given, give patient instructions): Abdominal Pain (ED) Additional Instructions: Follow-up with your primary care doctor on Friday. Return to the emergency room with any new or worsening symptoms including increased pain or fevers. You can use Tylenol for pain. Is patient prescribed a controlled substance at d/c from ED?: No Referrals: Justine Guillen MD [Primary Care Provider] - 1-2 days Time of Disposition: 13:39
[2021-05-17 11:57] LABS: Basophils % (A) 0 %; Eosinophils # (A) 0.3 k/uL (0-0.7); Eosinophils % (A) 3 %; HCT 33.9 % (39.0-53.0); HGB 10.9 gm/dL (13.0-17.5); Lymphocytes # (A) 1.6 k/uL (1.0-4.8); Lymphocytes % (A) 17 %; MCH 27.9 pg (25.0-35.0); MCHC 32.1 g/dL (31.0-37.0); MCV 86.8 fL (80.0-100.0); Mean Platelet Volume 6.5; Monocytes # (A) 0.4 k/uL (0-1.0); Monocytes % (A) 4 %; Neutrophils # (A) 6.8 k/uL (1.3-7.7); Neutrophils % (A) 73 %; Platelet Count 387 k/uL (150-450); RBC 3.91 m/uL (4.30-5.90); RDW 13.3 % (11.5-15.5); WBC 9.2 k/uL (3.8-10.6)
[2021-05-17 12:11] LABS: Calcium 9.3 mg/dL (8.4-10.2); Potassium 4.9 mmol/L (3.5-5.1); Total Bilirubin 0.3 mg/dL (0.2-1.3); Total Protein 6.9 g/dL (6.3-8.2)
--- NOTE | 2021-05-17 12:15 | XR ---
EXAMINATION TYPE: XR KUB DATE OF EXAM: 05/17/2021 COMPARISON: 09/11/2015 HISTORY: Abdomen pain, right flank pain TECHNIQUE: Abdomen is examined in the supine view. FINDINGS: Normal colonic bowel gas is present. Some moderate fecal retention is present. Nonspecific small bowel gas is present. No dilated loops of small bowel are evident. Psoas margins are normal. Or ganomegaly is not evident. No suspicious renal or ureteral calcifications are present. Vascular calci fications within the pelvis. IMPRESSION: 1. Mild fecal retention.
[2021-05-17 12:31] LABS: Appearance,Urine Clear (Clear); Bilirubin,Urine Negative (Negative); Blood,Urine Trace (Negative); Color,Urine Light Yellow; Glucose,Urine (UA) 4+ (Negative); Hyaline Casts,Urine 9 /lpf (0-2); Ketones,Urine Negative (Negative); Leukocyte Esterase,Urine Negative (Negative); Mucus,Urine Rare /hpf; Nitrite,Urine Negative (Negative); Protein,Urine 2+ (Negative); RBC,Urine 1 /hpf (0-5); Specific Gravity,Urine 1.014 (1.001-1.035); Urobilinogen,Urine <2.0 mg/dL (<2.0); WBC,Urine 1 /hpf (0-5)
--- NOTE | 2021-05-17 13:06 | US ---
EXAMINATION TYPE: US renals and bladder DATE OF EXAM: 05/17/2021 COMPARISON: NONE CLINICAL HISTORY: uti, back pain, hx of kidney stones. rt flank pain EXAM MEASUREMENTS: Right Kidney: 11.6 x 6.1 x 6.8 cm Left Kidney: 12.4 x 5.0 x 6.0 cm Right Kidney: No hydronephrosis or masses seen Left Kidney: No hydronephrosis or masses seen Bladder: wnl There is no evidence for hydronephrosis at this point in time. No nephrolithiasis is seen. No annie s are identified. Cortical medullary differentiation is maintained. The urinary bladder is anechoic. IMPRESSION: No hydronephrosis
[2021-05-17 14:30] VITALS: BP 129/81; PULSE 85; RESP 18; TEMP 98.2
== END 2021-05-17 14:10 | disposition home or self-care (01) ==
LOC: EC 10:45
DX: R10.9 Unspecified abdominal pain (principal); E11.9 Type 2 diabetes mellitus without complications; K21.9 Gastro-esophageal reflux disease without esophagitis; I10 Essential (primary) hypertension; F41.9 Anxiety disorder, unspecified; F31.9 Bipolar disorder, unspecified; Z79.4 Long term (current) use of insulin; Z79.82 Long term (current) use of aspirin; Z86.73 Personal history of transient ischemic attack (TIA), and cerebral infarction without residual deficits
CPT/HCPCS: 99284; 96374; 96361; 36415; 80053; 82150; 83605; 83690; 85025; 81001; 74018; 76770; J1885

== ENCOUNTER → 2021-06-26 | Outpatient (CLI) | payer OTHER ==
[2021-06-26 18:13] LABS: African American GFR (CKD) 39.3 (60.0-200.0); Blood Urea Nitrogen 34.1 mg/dL (9.0-27.0); Calcium 9.5 mg/dL (8.7-10.3); Carbon Dioxide 25.2 mmol/L (20.0-27.5); Chloride 102 mmol/L (96-109); Chol/HDL Ratio 3.75 Ratio; Glucose 129 mg/dL (70-110); LDL Cholesterol,Calculated 91.5 mg/dL (0.0-131.0); Non-African American GFR(CKD) 33.9 (60.0-200.0); Potassium 4.7 mmol/L (3.5-5.5); Sodium 138 mmol/L (135-145)
== END | disposition home or self-care (01) ==
LOC: LABWHC1 11:19
PROVIDERS: ATTEND Nurse Practitioner
DX: I10 Essential (primary) hypertension (principal); E11.65 Type 2 diabetes mellitus with hyperglycemia; E78.5 Hyperlipidemia, unspecified
CPT/HCPCS: 36415; 80048; 80061; 83036

== ENCOUNTER → 2021-08-28 | Outpatient (CLI) | payer OTHER ==
[2021-08-28 18:42] LABS: Basophils # (A) 0.06 X 10*3/uL (0.00-0.10); Basophils % (A) 0.7 %; Eosinophils # (A) 0.24 X 10*3/uL (0.04-0.35); Eosinophils % (A) 2.7 %; HCT 32.1 % (39.6-50.0); HGB 9.8 g/dL (13.0-17.0); Immature Grans, Automated 0.5 %; Lymphocytes # (A) 1.57 X 10*3/uL (0.90-5.00); Lymphocytes % (A) 17.7 %; MCH 27.1 pg (27.0-32.0); MCHC 30.5 g/dL (32.0-37.0); MCV 88.9 fL (80.0-97.0); Mean Platelet Volume 9.1 fL (9.5-12.2); Monocytes # (A) 0.56 X 10*3/uL (0.20-1.00); Monocytes % (A) 6.3 %; NRBC Per 100 WBC 0 /100 WBCS (0.0-0.0); Neutrophils % (A) 72.1 %; Platelet Count 400 X 10*3/uL (140-440); RBC 3.61 X 10*6/uL (4.40-5.60); RDW 12.9 % (11.5-14.5); WBC 8.87 X 10*3/uL (4.50-10.00)
[2021-08-28 19:04] LABS: % Iron Saturation 16.43 (15.00-50.00); ALT 11 U/L (10-49); AST 13 U/L (14-35); African American GFR (CKD) 29.2 (60.0-200.0); Albumin 4.3 g/dL (3.8-4.9); Albumin/Globulin Ratio 1.32 (1.60-3.17); Alkaline Phosphatase 122 U/L (41-126); BUN/Creat Ratio 17.19 Ratio (12.00-20.00); Blood Urea Nitrogen 48.3 mg/dL (9.0-27.0); Calcium 9.8 mg/dL (8.7-10.3); Carbon Dioxide 27.5 mmol/L (20.0-27.5); Chloride 104 mmol/L (96-109); Globulin 3.2 g/dL (1.6-3.3); Glucose 149 mg/dL (70-110); Magnesium 2.3 mg/dL (1.5-2.4); Non-African American GFR(CKD) 25.2 (60.0-200.0); Sodium 140 mmol/L (135-145); Total Bilirubin <0.15 mg/dL (0.30-1.20); Total Iron Binding Capacity 308 ug/dL (228-460); Total Protein 7.5 g/dL (6.2-8.2); Uric Acid 7.2 mg/dL (3.7-8.7)
[2021-08-28 19:05] LABS: Ferritin 85.4 ng/mL (22.0-322.0); Iron 51 ug/dL (65-175)
[2021-08-28 19:07] LABS: Chol/HDL Ratio 5.67 Ratio; Creatine Kinase 102 U/L (35-257); LDL Cholesterol,Calculated 151.7 mg/dL (0.0-131.0)
== END | disposition home or self-care (01) ==
LOC: LABWHC1 11:38
PROVIDERS: ATTEND Nurse Practitioner Family
DX: E11.40 Type 2 diabetes mellitus with diabetic neuropathy, unspecified (principal); R41.3 Other amnesia; R53.83 Other fatigue; K31.84 Gastroparesis
CPT/HCPCS: 36415; 80053; 80061; 82550; 82607; 82728; 83036; 83540; 83550; 83735; 84439; 84443; 84466; 84481; 84550; 85025

== ENCOUNTER → 2021-09-18 | Outpatient (CLI) | payer OTHER ==
--- NOTE | 2021-09-18 14:57 | US ---
"EXAMINATION TYPE: US bladder DATE OF EXAM: 09/18/2021 COMPARISON: NONE CLINICAL HISTORY: N18.4 CHRONIC KIDNEY DISEASE, STAGE 4. post void, patient states he only voids 2-3 times per day, he has a neurogenic bladder EXAM MEASUREMENTS: Post Void Residual Volume: Patient tried to void but was not able to after several minutes, he state s this happens often. Color Doppler performed to assess ureteral jets. Bilateral Jets seen: no, very distended Bladder is anechoic and measures 14.7 x 10 x 12.7 cm IMPRESSION: Unable to obtain postvoid residual volume due to lack of ability to void A Yellow level critical message alert has been initiated for Justine Guillen MD via the [facility] | Critical Results System on 09/18/2021 2:54 PM. This message alert has been sent to Perry Roche via the preferences provided by the clinician for the receipt of Radiology Critical Findings. Alix Ioxus ID [id number]."
== END | disposition home or self-care (01) ==
LOC: RADUSWWP 13:16
PROVIDERS: ATTEND Family Medicine
DX: N18.4 Chronic kidney disease, stage 4 (severe) (principal); R39.198 Other difficulties with micturition
CPT/HCPCS: 76857

== ENCOUNTER 2021-09-25 13:58 | Emergency (ER) | payer OTHER ==
[2021-09-25 14:21] VITALS: TEMP 98
--- NOTE | 2021-09-25 19:15 | ED ---
General Adult HPI - General Chief complaint: Fall Stated complaint: Fall,Nosebleed Time Seen by Provider: 09/25/21 18:36 Source: patient, family Mode of arrival: EMS Limitations: physical limitation - History of Present Illness Initial comments: Dictation was produced using [employer] dictation software. please excuse any grammatical, word or spelling errors. Chief Complaint: 50-year-old male past medical history of left-sided paralysis secondary stroke presents to the emergency department for pallor and multiple falls History of Present Illness: 50-year-old male who is brought in with his mother. Mother reports that patient over the last several days has been having frequent falls. Patient has history of left upper and left lower extremity paralysis secondary to stroke suffered last year. Mother brought the patient to the e mergency department to be evaluated because he looked pale and has been having bouts of confusion and frequent falls. Patient ambulates with a special walker but usually gets around with a motorized cart. Patient does not have any complaints at this time. Does not feel sick. Mother is also worried that he fell and hurt his face because he had a bloody nose this morning that resolved on its own. The ROS documented in this emergency department record has been reviewed and confirmed by me. Those systems with pertinent positive or negative responses have been documented in the HPI. All other systems are other negative and/or noncontributory. PHYSICAL EXAM: General Impression: Alert and oriented x3, not in acute distress HEENT: Normocephalic atraumatic, extra-ocular movements intact, pupils equal and reactive to light bilaterally, mucous membranes moist. Cardiovascular: Heart regular rate and rhythm Chest: Able to complete full sentences, no retractions, no tachypnea Abdomen: abdomen soft, non-tender, non-distended, no organomegaly Musculoskeletal: Pulses present and equal in all extremities, no peripheral edema Motor: no focal deficits noted Neurological: CN II-XII grossly intact, no focal motor or sensory deficits noted Skin: Intact with no visualized rashes Psych: Normal affect and mood ED course: 50-year-old male with past medical history of left-sided paralysis suffered from stroke last year presents to the ER for multiple falls, pallor and bouts of confusion. Vital signs upon arrival are within acceptable limits. Laboratory evaluation obtained. CBC is unremarkable. Metabolic panel shows creatinine of 2.41. Patient has been slowly elevating renal function since January of last year. Computed tomography scan of brain shows old right internal capsule lacunar infarct which have progressed compared to old exam no acute intracranial process. Computed tomography scan of the face shows no evidence of facial bone fracture. EKG interpretation: Ventricular rate 77, sinus rhythm, NE interval 151, QS 91, QTC 408. No NE prolongation, no QTC prolongation, no ST or T-wave changes noted. EKG compared to 06/29/2020 showing no changes. Overall, this EKG is unremarkable Patient observed in emergency department for approximately 7 hours. Patient reevaluated at bedside at 9:22 PM finally stable medical condition. Patient is well-appearing. He has no complaints. Patient will be discharged advised follow-up with primary care doctor neurologist. - Related Data Home Medications Medication Instructions Recorded Confirmed Omeprazole 40 mg PO DAILY 03/27/20 09/25/21 Venlafaxine HCl [Effexor XR] 225 mg PO DAILY 03/27/20 09/25/21 buPROPion HCL [Wellbutrin SR] 150 mg PO BID 03/27/20 09/25/21 Insulin NPH Hum/Reg Insulin Hm 20 unit SQ AC-BID 06/29/20 09/25/21 [humuLIN 70/30 Kwikpen] Methylphenidate HCl 20 mg PO BID 06/29/20 09/25/21 Hydrocodone/Acetaminophen [[place] 1 tab PO TID PRN 06/30/20 09/25/21 7.5-325] Apixaban [Eliquis] 5 mg PO BID 09/25/21 09/25/21 Benztropine Mesylate [Cogentin] 1 mg PO BID 09/25/21 09/25/21 Brimonidine Tartrate [Alphagan P 1 drop RIGHT EYE TID 09/25/21 09/25/21 0.2% Ophth Soln] Dapagliflozin Propanediol [Farxiga] 10 mg PO DAILY 09/25/21 09/25/21 Gabapentin [Neurontin] 400 mg PO TID 09/25/21 09/25/21 Loratadine [Claritin] 10 mg PO DAILY PRN 09/25/21 09/25/21 Midodrine HCl [ProAmatine] 10 mg PO TID 09/25/21 09/25/21 Pioglitazone [Actos] 15 mg PO DAILY 09/25/21 09/25/21 Rosuvastatin [Crestor] 20 mg PO HS 09/25/21 09/25/21 hydrALAZINE HCL [Apresoline] 25 mg PO TID-W/MEALS 09/25/21 09/25/21 Previous Rx's Medication Instructions Recorded amLODIPine [Norvasc] 10 mg PO DAILY tab 07/03/20 lisinopriL [Zestril] 10 mg PO DAILY tab 07/03/20 Allergies Allergy/AdvReac Type Severity Reaction Status Date / Time lactose AdvReac Nausea & Verified 09/25/21 14:21 Vomiting & Diarrhea Review of Systems ROS Statement: Those systems with pertinent positive or pertinent negative responses have been documented in the HPI. ROS Other: All systems not noted in ROS Statement are negative. Past Medical History Past Medical History: CVA/TIA, Diabetes Mellitus, GERD/Reflux, Hypertension, Sleep Apnea/CPAP/BIPAP Additional Past Medical History / Comment(s): neuropathy carpel tunnel borderline bipolar History of Any Multi-Drug Resistant Organisms: MRSA Date of last positivie culture/infection: 04/22/16 MDRO Source:: Right Hand Past Surgical History: Orthopedic Surgery Additional Past Surgical History / Comment(s): Colonscopy (B) eye cataract surg, (R) hand surgery Past Anesthesia/Blood Transfusion Reactions: No Reported Reaction Past Psychological History: Anxiety, Bipolar, Depression Smoking Status: Never smoker Past Alcohol Use History: None Reported Past Drug Use History: None Reported - Past Family History Mother Family Medical History: Diabetes Mellitus, Renal Disease Additional Family Medical History / Comment(s): Mother is alive at age 61 with history of diabetes (wears insulin pump). Patient does not have any contact with his father. Brother(s) Additional Family Medical History / Comment(s): Patient has 2 brothers and one has history of diabetes and one has no major medical problems. Patient does not have any sisters. Patient does not have any children. General Exam Limitations: physical limitation Course Vital Signs 09/25/21 09/25/21 14:16 19:43 Temperature 98.0 F Pulse Rate 88 82 Respiratory 18 16 Rate Blood Pressure 138/72 168/107 O2 Sat by Pulse 98 98 Oximetry Medical Decision Making - Lab Data Result diagrams: 09/25/21 19:12 09/25/21 19:12 Lab Results 09/25/21 09/25/21 Range/Units 19:12 19:12 WBC 7.9 (3.8-10.6) k/uL RBC 3.72 L (4.30-5.90) m/uL Hgb 10.0 L (13.0-17.5) gm/dL Hct 32.2 L (39.0-53.0) % MCV 86.6 (80.0-100.0) fL MCH 27.0 (25.0-35.0) pg MCHC 31.2 (31.0-37.0) g/dL RDW 13.6 (11.5-15.5) % Plt Count 395 (150-450) k/uL MPV 6.5 Neutrophils % 70 % Lymphocytes % 20 % Monocytes % 5 % Eosinophils % 4 % Basophils % 1 % Neutrophils # 5.5 (1.3-7.7) k/uL Lymphocytes # 1.6 (1.0-4.8) k/uL Monocytes # 0.4 (0-1.0) k/uL Eosinophils # 0.3 (0-0.7) k/uL Basophils # 0.0 (0-0.2) k/uL Sodium 140 (137-145) mmol/L Potassium 5.0 (3.5-5.1) mmol/L Chloride 107 (98-107) mmol/L Carbon Dioxide 24 (22-30) mmol/L Anion Gap 9 mmol/L BUN 53 H (9-20) mg/dL Creatinine 2.41 H (0.66-1.25) mg/dL Est GFR (CKD-EPI)AfAm 35 (>60 ml/min/1.73 sqM) Est GFR (CKD-EPI)NonAf 30 (>60 ml/min/1.73 sqM) Glucose 139 H (74-99) mg/dL Calcium 9.1 (8.4-10.2) mg/dL Magnesium 2.1 (1.6-2.3) mg/dL Total Bilirubin 0.3 (0.2-1.3) mg/dL AST 26 (17-59) U/L ALT 22 (4-49) U/L Alkaline Phosphatase 105 (38-126) U/L Total Protein 7.0 (6.3-8.2) g/dL Albumin 4.2 (3.5-5.0) g/dL Disposition Clinical Impression: Frequent falls Disposition: HOME SELF-CARE Condition: Good Instructions (If sedation given, give patient instructions): Fall Prevention for Older Adults (ED) Is patient prescribed a controlled substance at d/c from ED?: No Referrals: Justine Guillen MD [Primary Care Provider] - 1-2 days Time of Disposition: 21:23
[2021-09-25 19:18] LABS: Basophils % (A) 1 %; Eosinophils # (A) 0.3 k/uL (0-0.7); Eosinophils % (A) 4 %; HCT 32.2 % (39.0-53.0); Lymphocytes # (A) 1.6 k/uL (1.0-4.8); Lymphocytes % (A) 20 %; MCHC 31.2 g/dL (31.0-37.0); MCV 86.6 fL (80.0-100.0); Mean Platelet Volume 6.5; Monocytes # (A) 0.4 k/uL (0-1.0); Monocytes % (A) 5 %; Neutrophils # (A) 5.5 k/uL (1.3-7.7); Neutrophils % (A) 70 %; Platelet Count 395 k/uL (150-450); RBC 3.72 m/uL (4.30-5.90); RDW 13.6 % (11.5-15.5); WBC 7.9 k/uL (3.8-10.6)
[2021-09-25 19:31] LABS: Albumin 4.2 g/dL (3.5-5.0); Calcium 9.1 mg/dL (8.4-10.2); Magnesium 2.1 mg/dL (1.6-2.3); Total Bilirubin 0.3 mg/dL (0.2-1.3)
[2021-09-25 19:46] VITALS: BP 168/107; PULSE 82; RESP 16
--- NOTE | 2021-09-25 20:42 | CT ---
EXAMINATION TYPE: CT brain wo con DATE OF EXAM: 09/25/2021 COMPARISON: 06/29/2020 HISTORY: fall CT DLP: 1482.4 combined mGycm Automated exposure control for dose reduction was used. There is some cerebral cortical atrophy. There is no mass effect or midline shift. There is hypodensi ty there is multifocal in the right internal capsule consistent with old lacunar infarcts. There is n o midline shift. No sign of intracranial hemorrhage. The calvarium is intact. Skull base is intact. IMPRESSION: Old right internal capsule lacunar infarcts which have progressed compared to old exam. No acute intr acranial abnormality. No evidence of acute traumatic injury.
--- NOTE | 2021-09-25 20:49 | CT ---
EXAMINATION TYPE: CT facial bones wo con DATE OF EXAM: 09/25/2021 COMPARISON: None HISTORY: fall CT DLP: 1482.4 combined mGycm Automated exposure control for dose reduction was used. Images obtained from the bottom of the mandible to the top of the frontal sinuses with no contrast. The mandibular ring is intact. Temporomandibular joints are intact. Zygomatic arches appear normal. T he maxilla is intact. There are small mucous retention cysts in the maxillary sinuses. Nasal bone is intact. Orbital margins are intact. There is no evidence of retro-orbital mass. There is no evidence of orbital blowout fracture. IMPRESSION: No evidence of facial bone fracture. There is small mucous retention cysts in the maxillary sinuses.
== END 2021-09-25 22:00 | disposition home or self-care (01) ==
LOC: EC 13:58
DX: R29.6 Repeated falls (principal); R04.0 Epistaxis; E11.36 Type 2 diabetes mellitus with diabetic cataract; I10 Essential (primary) hypertension; K21.9 Gastro-esophageal reflux disease without esophagitis; Z79.01 Long term (current) use of anticoagulants; Z79.4 Long term (current) use of insulin; Z79.899 Other long term (current) drug therapy; Z86.73 Personal history of transient ischemic attack (TIA), and cerebral infarction without residual deficits; Z91.011 Allergy to milk products; Z79.84 Long term (current) use of oral hypoglycemic drugs
CPT/HCPCS: 36415; 70450; 70486; 80053; 83735; 85025; 93005; 99284

== ENCOUNTER 2021-10-10 06:55 | Emergency (ER) | payer OTHER ==
[2021-10-10 07:54] LABS: Basophils % (A) 0 %; Eosinophils # (A) 0.3 k/uL (0-0.7); Eosinophils % (A) 3 %; Lymphocytes # (A) 1.7 k/uL (1.0-4.8); Lymphocytes % (A) 19 %; MCH 28.4 pg (25.0-35.0); MCHC 32.6 g/dL (31.0-37.0); MCV 87.2 fL (80.0-100.0); Mean Platelet Volume 6.5; Monocytes # (A) 0.6 k/uL (0-1.0); Monocytes % (A) 6 %; Neutrophils # (A) 6.3 k/uL (1.3-7.7); Neutrophils % (A) 70 %; Platelet Count 443 k/uL (150-450); RBC 2.41 m/uL (4.30-5.90); RDW 14.1 % (11.5-15.5)
[2021-10-10 07:55] LABS: Albumin 4.1 g/dL (3.5-5.0); INR 1.1 (<1.2); Potassium 4.5 mmol/L (3.5-5.1); Prothrombin Time 11.4 sec (9.0-12.0); Total Bilirubin 0.2 mg/dL (0.2-1.3); Total Protein 6.8 g/dL (6.3-8.2)
--- NOTE | 2021-10-10 07:55 | CT ---
EXAMINATION TYPE: CT brain monica figueroa DATE OF EXAM: 10/10/2021 COMPARISON: 09/25/2021 HISTORY: Fall struck head on nightstand. On blood thinners, history of CVA CT DLP: 1571.[address] Brain: Unenhanced CT of the brain was performed. The ventricles, basal cisterns and sulci overlying the cerebral convexities demonstrate a normal appe arance. Remote insults right internal capsule. There is no evidence for intracranial hemorrhage or sulcal effacement. No mass effects are seen. If symptoms persist consider MRI. Osseous calvarium is intact. Small left posterior left occipital parietal scalp hematoma. IMPRESSION: No acute intracranial process CT Cervical Spine: Unenhanced CT of the cervical spine was performed with bone and soft tissue window settings submitted . Coronal and sagittal reconstruction is obtained. There is normal alignment and prevertebral soft tissues. I do not see evidence for fracture or sublu xation. No significant degenerative changes are present. The lung apices are clear. IMPRESSION: No evidence for acute fracture or subluxation of the cervical spine.
[2021-10-10] MEDS ORDERED: DIPH,PERTUS(ACELL)TETVAC-LF 0.5 ML VIAL IM ONE (08:02)
--- NOTE | 2021-10-10 08:05 | XR ---
EXAMINATION TYPE: XR chest 2V DATE OF EXAM: 10/10/2021 COMPARISON: 06/30/2020 HISTORY: Chest pain TECHNIQUE: Frontal and lateral views of the chest are obtained. Examination is limited by the degree of inspiration. FINDINGS: There is no focal air space opacity. No evidence for pneumothorax. No pleural effusion. The cardiac silhouette size is within normal limits. The osseous structures are grossly intact. IMPRESSION: 1. No acute cardiopulmonary process.
[2021-10-10 08:12] LABS: HGB 6.8 gm/dL (13.0-17.5)
[2021-10-10] MEDS ORDERED: LIDOCAINE 1% INJ 10MG/ML (5 ML VIAL-PF) SQ ONE (08:53)
[2021-10-10 09:17] LABS: Glucose,Whole Blood 127 mg/dL (70-110)
--- NOTE | 2021-10-10 09:23 | ED ---
Fall HPI - General Chief Complaint: Fall Stated Complaint: Fall, Head Injury Source: patient, EMS Mode of arrival: EMS Limitations: physical limitation (Left-sided weakness) - History of Present Illness Initial Comments: 50-year-old male presents to the emergency room via ambulance after rolling out of bed and hitting his head on the bedside table, he is on Eliquis. He did not lose consciousness. He did sustain a large laceration to the scalp. He denies any other injury. Patient does have a history of hypertension, chronic kidney disease, diabetes, stroke with left-sided weakness and bipolar. MD Complaint: fall -: hour(s) Fall From: out of bed When Fall Occurred: [address] Fall Occurred: home Loss of Consciousness: none Prolonged Down Time?: no Symptoms Prior to Fall: none Location: head Associated Symptoms: denies - Related Data Home Medications Medication Instructions Recorded Confirmed Omeprazole 40 mg PO DAILY 03/27/20 10/10/21 Venlafaxine HCl [Effexor XR] 225 mg PO DAILY 03/27/20 10/10/21 buPROPion HCL [Wellbutrin SR] 150 mg PO BID 03/27/20 10/10/21 Insulin NPH Hum/Reg Insulin Hm 20 unit SQ AC-BID 06/29/20 10/10/21 [humuLIN 70/30 Kwikpen] Methylphenidate HCl 20 mg PO BID 06/29/20 10/10/21 Hydrocodone/Acetaminophen [[place] 1 tab PO TID PRN 06/30/20 10/10/21 7.5-325] Apixaban [Eliquis] 5 mg PO BID 09/25/21 10/10/21 Benztropine Mesylate [Cogentin] 1 mg PO BID 09/25/21 10/10/21 Brimonidine Tartrate [[place]ph[place] P 1 drop RIGHT EYE TID 09/25/21 10/10/21 0.2% Ophth Soln] Dapagliflozin Propanediol [Farxiga] 10 mg PO DAILY 09/25/21 10/10/21 Gabapentin [Neurontin] 400 mg PO TID 09/25/21 10/10/21 Loratadine [Claritin] 10 mg PO DAILY PRN 09/25/21 10/10/21 Midodrine HCl [ProAmatine] 10 mg PO TID 09/25/21 10/10/21 Pioglitazone [Actos] 15 mg PO DAILY 09/25/21 10/10/21 Rosuvastatin [Crestor] 20 mg PO HS 09/25/21 10/10/21 hydrALAZINE HCL [Apresoline] 25 mg PO TID-W/MEALS 09/25/21 10/10/21 Previous Rx's Medication Instructions Recorded amLODIPine [Norvasc] 10 mg PO DAILY tab 07/03/20 lisinopriL [Zestril] 10 mg PO DAILY tab 07/03/20 Allergies Allergy/AdvReac Type Severity Reaction Status Date / Time lactose AdvReac Nausea & Verified 10/10/21 08:58 Vomiting & Diarrhea Review of Systems ROS Statement: Those systems with pertinent positive or pertinent negative responses have been documented in the HPI. ROS Other: All systems not noted in ROS Statement are negative. Past Medical History Past Medical History: CVA/TIA, Diabetes Mellitus, GERD/Reflux, Hypertension, Sleep Apnea/CPAP/BIPAP Additional Past Medical History / Comment(s): neuropathy carpel tunnel borderline bipolar History of Any Multi-Drug Resistant Organisms: MRSA Date of last positivie culture/infection: 04/22/16 MDRO Source:: Right Hand Past Surgical History: Orthopedic Surgery Additional Past Surgical History / Comment(s): Colonscopy (B) eye cataract surg, (R) hand surgery Past Anesthesia/Blood Transfusion Reactions: No Reported Reaction Past Psychological History: Anxiety, Bipolar, Depression Smoking Status: Never smoker Past Alcohol Use History: None Reported Past Drug Use History: None Reported - Past Family History Mother Family Medical History: Diabetes Mellitus, Renal Disease Additional Family Medical History / Comment(s): Mother is alive at age 61 with history of diabetes (wears insulin pump). Patient does not have any contact with his father. Brother(s) Additional Family Medical History / Comment(s): Patient has 2 brothers and one has history of diabetes and one has no major medical problems. Patient does not have any sisters. Patient does not have any children. General Exam Limitations: no limitations, physical limitation (left leg weakness; left arm contracture with paresis) General appearance: alert, in no apparent distress Expanded Head exam: Present: laceration (approx 8cm). Absent: hematoma, raccoon eyes, frey's sign, general tenderness, tenderness of temporal artery Eye exam: Present: normal appearance. Absent: scleral icterus, conjunctival injection ENT exam: Present: other (poor dentition) Neck exam: Present: normal inspection. Absent: tenderness, meningismus Respiratory exam: Present: normal lung sounds bilaterally. Absent: respiratory distress, accessory muscle use Cardiovascular Exam: Present: regular rate GI/Abdominal exam: Present: soft. Absent: distended, tenderness Extremities exam: Present: normal capillary refill. Absent: tenderness, calf tenderness Left Lower Leg exam: Present: swelling. Absent: full ROM, abrasion, ecchymosis, deformity, crepitus, erythema, Homans' sign Ankle exam: Present: swelling Foot/Toe exam: Present: swelling Neurovascular tendon exam: Present: no vascular compromise, motor deficit (Left leg weakness post CVA). Absent: abnormal cap refill, extremity cold to touch, pallor Back exam: Absent: tenderness, CVA tenderness (R), CVA tenderness (L), rash noted Neurological exam: Present: alert, oriented X3 Psychiatric exam: Present: normal affect, normal mood Skin exam: Present: warm, dry, pallor. Absent: cyanosis, diaphoretic Course Vital Signs 10/10/21 10/10/21 07:08 11:43 Temperature 98.2 F 98.6 F Pulse Rate 81 88 Respiratory 16 18 Rate Blood Pressure 137/92 132/78 O2 Sat by Pulse 95 98 Oximetry Procedures - Laceration Laceration #1 Consent Obtained: verbal consent Indication: laceration Site: scalp Size (cm): 8 Description: linear Depth: simple, single layer Anesthetic Used: lidocaine 1% Anesthesia Technique: local infiltration Pre-repair: irrigated extensively Size of Sutures: other (erica) Number of Sutures: 9 Patient Tolerated Procedure: well Medical Decision Making - Medical Decision Making 50-year-old male fell out of bed sustaining a large scalp laceration. He is taking Eliquis for history of stroke with residual left-sided weakness. Social hemoglobin showed 6.8, Hemoglobin was repeated showing a level 8.3. I did speak with the nurse who states that initial labs may have been drawn off the IV catheter giving erroneous results. Patient has no complaints at this time. Bleeding from scalp has resolved and wound was closed with 9 erica. Case discussed with Dr. Lindsey, patient will be discharged home to family and directed to have repeat hemoglobin drawn in 48 hours. They were directed to follow-up with primary care doctor this week and have erica removed in 5-7 days. Return to the emergency room with any new or concerning symptoms including persistent headaches, seizures, fevers or abnormal bleeding. Patient and family are agreeable to this plan of care. Vital signs are stable. - Lab Data Result diagrams: 10/10/21 10:29 10/10/21 07:11 Lab Results 10/10/21 10/10/21 10/10/21 Range/Units 07:11 07:11 07:11 WBC 9.0 (3.8-10.6) k/uL RBC 2.41 L (4.30-5.90) m/uL Hgb 6.8 L* D (13.0-17.5) gm/dL Hct 21.0 L (39.0-53.0) % MCV 87.2 (80.0-100.0) fL MCH 28.4 (25.0-35.0) pg MCHC 32.6 (31.0-37.0) g/dL RDW 14.1 (11.5-15.5) % Plt Count 443 (150-450) k/uL MPV 6.5 Neutrophils % 70 % Lymphocytes % 19 % Monocytes % 6 % Eosinophils % 3 % Basophils % 0 % Neutrophils # 6.3 (1.3-7.7) k/uL Lymphocytes # 1.7 (1.0-4.8) k/uL Monocytes # 0.6 (0-1.0) k/uL Eosinophils # 0.3 (0-0.7) k/uL Basophils # 0.0 (0-0.2) k/uL PT 11.4 (9.0-12.0) sec INR 1.1 (<1.2) APTT 28.0 (22.0-30.0) sec Sodium 140 (137-145) mmol/L Potassium 4.5 (3.5-5.1) mmol/L Chloride 106 (98-107) mmol/L Carbon Dioxide 25 (22-30) mmol/L Anion Gap 9 mmol/L BUN 57 H (9-20) mg/dL Creatinine 2.97 H (0.66-1.25) mg/dL Est GFR (CKD-EPI)AfAm 27 (>60 ml/min/1.73 sqM) Est GFR (CKD-EPI)NonAf 24 (>60 ml/min/1.73 sqM) Glucose 89 (74-99) mg/dL POC Glucose (mg/dL) (70-110) mg/dL POC Glu Java Analyst ID Calcium 9.0 (8.4-10.2) mg/dL Total Bilirubin 0.2 (0.2-1.3) mg/dL AST 25 (17-59) U/L ALT 20 (4-49) U/L Alkaline Phosphatase 92 (38-126) U/L Total Protein 6.8 (6.3-8.2) g/dL Albumin 4.1 (3.5-5.0) g/dL Blood Type Blood Type Confirm Blood Type Recheck Bld Type Recheck Status Antibody Screen Spec Expiration Date 10/10/21 10/10/21 10/10/21 Range/Units 09:05 09:20 10:06 WBC (3.8-10.6) k/uL RBC (4.30-5.90) m/uL Hgb (13.0-17.5) gm/dL Hct (39.0-53.0) % MCV (80.0-100.0) fL MCH (25.0-35.0) pg MCHC (31.0-37.0) g/dL RDW (11.5-15.5) % Plt Count (150-450) k/uL MPV Neutrophils % % Lymphocytes % % Monocytes % % Eosinophils % % Basophils % % Neutrophils # (1.3-7.7) k/uL Lymphocytes # (1.0-4.8) k/uL Monocytes # (0-1.0) k/uL Eosinophils # (0-0.7) k/uL Basophils # (0-0.2) k/uL PT (9.0-12.0) sec INR (<1.2) APTT (22.0-30.0) sec Sodium (137-145) mmol/L Potassium (3.5-5.1) mmol/L Chloride (98-107) mmol/L Carbon Dioxide (22-30) mmol/L Anion Gap mmol/L BUN (9-20) mg/dL Creatinine (0.66-1.25) mg/dL Est GFR (CKD-EPI)AfAm (>60 ml/min/1.73 sqM) Est GFR (CKD-EPI)NonAf (>60 ml/min/1.73 sqM) Glucose (74-99) mg/dL POC Glucose (mg/dL) 127 H (70-110) mg/dL POC Glu Java Analyst ID [place]lic[place] Nicole Calcium (8.4-10.2) mg/dL Total Bilirubin (0.2-1.3) mg/dL AST (17-59) U/L ALT (4-49) U/L Alkaline Phosphatase (38-126) U/L Total Protein (6.3-8.2) g/dL Albumin (3.5-5.0) g/dL Blood Type O Positive Blood Type Confirm O Positive Blood Type Recheck No Previous Record Bld Type Recheck Status CABO Indicated Antibody Screen NEGATIVE Spec Expiration Date 10/13/2021 - 231910/10/21 Range/Units 10:29 WBC 10.1 (3.8-10.6) k/uL RBC 2.86 L (4.30-5.90) m/uL Hgb 8.3 L D (13.0-17.5) gm/dL Hct 25.0 L (39.0-53.0) % MCV 87.5 (80.0-100.0) fL MCH 28.9 (25.0-35.0) pg MCHC 33.0 (31.0-37.0) g/dL RDW 13.6 (11.5-15.5) % Plt Count 327 (150-450) k/uL MPV 6.8 Neutrophils % % Lymphocytes % % Monocytes % % Eosinophils % % Basophils % % Neutrophils # (1.3-7.7) k/uL Lymphocytes # (1.0-4.8) k/uL Monocytes # (0-1.0) k/uL Eosinophils # (0-0.7) k/uL Basophils # (0-0.2) k/uL PT (9.0-12.0) sec INR (<1.2) APTT (22.0-30.0) sec Sodium (137-145) mmol/L Potassium (3.5-5.1) mmol/L Chloride (98-107) mmol/L Carbon Dioxide (22-30) mmol/L Anion Gap mmol/L BUN (9-20) mg/dL Creatinine (0.66-1.25) mg/dL Est GFR (CKD-EPI)AfAm (>60 ml/min/1.73 sqM) Est GFR (CKD-EPI)NonAf (>60 ml/min/1.73 sqM) Glucose (74-99) mg/dL POC Glucose (mg/dL) (70-110) mg/dL POC Glu Java Analyst ID Calcium (8.4-10.2) mg/dL Total Bilirubin (0.2-1.3) mg/dL AST (17-59) U/L ALT (4-49) U/L Alkaline Phosphatase (38-126) U/L Total Protein (6.3-8.2) g/dL Albumin (3.5-5.0) g/dL Blood Type Blood Type Confirm Blood Type Recheck Bld Type Recheck Status Antibody Screen Spec Expiration Date - EKG Data EKG shows normal: sinus rhythm (Ventricular rate 79, NV interval 0.136, QRS 0.90, QTC 0.411) Disposition Clinical Impression: Fall, Scalp laceration, CKD (chronic kidney disease) Disposition: HOME SELF-CARE Condition: Good Instructions (If sedation given, give patient instructions): Laceration (ED), Staple Care (ED), Fall Prevention (ED) Additional Instructions: It is important to have repeat lab work completed in 48 hours and follow-up with your primary care doctor this week. Have erica removed in 5-7 days. You can put a light layer of bacitracin on the erica and the abrasions to your left leg once a day. Return to the emergency room with any new or concerning symptoms including persistent headaches, fevers or abnormal bleeding. Is patient prescribed a controlled substance at d/c from ED?: No Referrals: Justine Guillen MD [Primary Care Provider] - 1-2 days Time of Disposition: 11:16 Decision Date: 10/10/21 Decision Time: 09:31
--- NOTE | 2021-10-10 10:32 | US ---
EXAMINATION TYPE: US venous doppler duplex LE LT DATE OF EXAM: 10/10/2021 10:18 AM COMPARISON: NONE CLINICAL HISTORY: swelling. Swelling. No hx of DVT per patient. Patient on eliquis. SIDE PERFORMED: Left TECHNIQUE: The lower extremity deep venous system is examined utilizing real time linear array sonog kimberly with graded compression, doppler sonography and color-flow sonography. VESSELS IMAGED: Common Femoral Vein Deep Femoral Vein Greater Saphenous Vein * Femoral Vein Popliteal Vein Small Saphenous Vein * Proximal Calf Veins (* superficial vessels) Left Leg: No evidence of DVT in veins imaged. Exam is limited due to shadowing from arteries. IMPRESSION: No evidence for DVT
[2021-10-10 10:42] LABS: MCH 28.9 pg (25.0-35.0); MCV 87.5 fL (80.0-100.0); Mean Platelet Volume 6.8; Platelet Count 327 k/uL (150-450); RBC 2.86 m/uL (4.30-5.90); RDW 13.6 % (11.5-15.5); WBC 10.1 k/uL (3.8-10.6)
[2021-10-10 10:53] LABS: HGB 8.3 gm/dL (13.0-17.5)
[2021-10-10] MEDS ORDERED: BACITRACIN OINT 1 EACH PACKET TOPICAL ONE (11:18)
[2021-10-10] MEDS ORDERED: ACETAMINOPHEN TAB 325 MG TAB PO STA (11:18)
[2021-10-10 11:45] VITALS: BP 132/78; PULSE 88; RESP 18; TEMP 98.6
== END 2021-10-10 11:43 | disposition home or self-care (01) ==
LOC: EC 06:55
DX: S01.01XA Laceration without foreign body of scalp, initial encounter (principal); I10 Essential (primary) hypertension; K21.9 Gastro-esophageal reflux disease without esophagitis; Z79.83 Long term (current) use of bisphosphonates; E11.9 Type 2 diabetes mellitus without complications; N18.9 Chronic kidney disease, unspecified; Z23 Encounter for immunization; Z91.011 Allergy to milk products
CPT/HCPCS: 36415; 93005; 86900; 86901; 80053; 85025; 85027; 85610; 85730; 86850; 71046; 93971; 72125; 70450; 12015; 99285; 90471; J2001

== ENCOUNTER 2021-11-22 09:59 | Inpatient (IN) | payer OTHER ==
[2021-11-22] MEDS ORDERED: SODIUM CHLORIDE 0.9% 1,000 ML IV STA (10:14)
--- NOTE | 2021-11-22 10:18 | ED ---
General Adult HPI - General Chief complaint: Dizziness Stated complaint: Bleeding Time Seen by Provider: 11/22/21 10:01 Source: patient, EMS, RN notes reviewed Mode of arrival: EMS Limitations: physical limitation - History of Present Illness Initial comments: Patient is a pleasant 50-year-old male presenting to the emergency department with concerns with bleeding from his gums. Patient did have all of his upper teeth extracted 6 days ago. Patient did have his eloquent requests help however that has been restarted. Bleeding has stopped at this time. Patient did feel a little bit lightheaded earlier however no complaints at this time. - Related Data Home Medications Medication Instructions Recorded Confirmed Omeprazole 40 mg PO DAILY 03/27/20 10/10/21 Venlafaxine HCl [Effexor XR] 225 mg PO DAILY 03/27/20 10/10/21 buPROPion HCL [Wellbutrin SR] 150 mg PO BID 03/27/20 10/10/21 Insulin NPH Hum/Reg Insulin Hm 20 unit SQ AC-BID 06/29/20 10/10/21 [humuLIN 70/30 Kwikpen] Methylphenidate HCl 20 mg PO BID 06/29/20 10/10/21 Hydrocodone/Acetaminophen [[place] 1 tab PO TID PRN 06/30/20 10/10/21 7.5-325] Apixaban [Eliquis] 5 mg PO BID 09/25/21 10/10/21 Benztropine Mesylate [Cogentin] 1 mg PO BID 09/25/21 10/10/21 Brimonidine Tartrate [Alphagan P 1 drop RIGHT EYE TID 09/25/21 10/10/21 0.2% Ophth Soln] Dapagliflozin Propanediol [Farxiga] 10 mg PO DAILY 09/25/21 10/10/21 Gabapentin [Neurontin] 400 mg PO TID 09/25/21 10/10/21 Loratadine [Claritin] 10 mg PO DAILY PRN 09/25/21 10/10/21 Midodrine HCl [ProAmatine] 10 mg PO TID 09/25/21 10/10/21 Pioglitazone [Actos] 15 mg PO DAILY 09/25/21 10/10/21 Rosuvastatin [Crestor] 20 mg PO HS 09/25/21 10/10/21 hydrALAZINE HCL [Apresoline] 25 mg PO TID-W/MEALS 09/25/21 10/10/21 Previous Rx's Medication Instructions Recorded amLODIPine [Norvasc] 10 mg PO DAILY tab 07/03/20 lisinopriL [Zestril] 10 mg PO DAILY tab 07/03/20 Allergies Allergy/AdvReac Type Severity Reaction Status Date / Time lactose AdvReac Nausea & Verified 11/22/21 10:05 Vomiting & Diarrhea Review of Systems ROS Statement: Those systems with pertinent positive or pertinent negative responses have been documented in the HPI. ROS Other: All systems not noted in ROS Statement are negative. Constitutional: Denies: fever Eyes: Denies: eye pain ENT: Reports: as per HPI. Denies: ear pain Respiratory: Denies: cough Cardiovascular: Denies: chest pain Endocrine: Denies: fatigue Gastrointestinal: Denies: abdominal pain Genitourinary: Denies: dysuria Past Medical History Past Medical History: CVA/TIA, Diabetes Mellitus, GERD/Reflux, Hypertension, Sleep Apnea/CPAP/BIPAP Additional Past Medical History / Comment(s): neuropathy carpel tunnel borderline bipolar History of Any Multi-Drug Resistant Organisms: MRSA Date of last positivie culture/infection: 04/22/16 MDRO Source:: Right Hand Past Surgical History: Orthopedic Surgery Additional Past Surgical History / Comment(s): Colonscopy (B) eye cataract surg, (R) hand surgery Past Anesthesia/Blood Transfusion Reactions: No Reported Reaction Past Psychological History: Anxiety, Bipolar, Depression Smoking Status: Never smoker Past Alcohol Use History: None Reported Past Drug Use History: None Reported - Past Family History Mother Family Medical History: Diabetes Mellitus, Renal Disease Additional Family Medical History / Comment(s): Mother is alive at age 61 with history of diabetes (wears insulin pump). Patient does not have any contact with his father. Brother(s) Additional Family Medical History / Comment(s): Patient has 2 brothers and one has history of diabetes and one has no major medical problems. Patient does not have any sisters. Patient does not have any children. General Exam Limitations: physical limitation General appearance: alert, in no apparent distress Head exam: Present: normocephalic Eye exam: Present: normal appearance ENT exam: Present: other (Dried blood bilateral region of recent tooth extraction. No active bleeding.) Respiratory exam: Present: normal lung sounds bilaterally Cardiovascular Exam: Present: regular rate, normal rhythm GI/Abdominal exam: Present: soft. Absent: tenderness Extremities exam: Present: normal inspection Neurological exam: Present: alert. Absent: motor sensory deficit Psychiatric exam: Present: normal affect, normal mood Skin exam: Present: normal color Course Vital Signs 11/22/21 10:00 Temperature 98.9 F Pulse Rate 101 H Respiratory 20 Rate Blood Pressure 117/95 O2 Sat by Pulse 91 L Oximetry EKG Findings - EKG Comments: EKG Findings:: Sinus rhythm 98. CA 141. QRS 89. QT 325. QTc 380. Normal axis. LVH criteria. Inferior Q waves. No acute ST change. Medical Decision Making - Medical Decision Making Patient reevaluated and resting comfortably in bed. Blood pressure remains stable. EMS did report hypotension when they first evaluated patient. Patient is updated on results and plan. Patient will be given 1 unit of red cells and held overnight for observation and repeat testing. WILL be held. Dr. Johnson has been paged for admission covering Dr. Guillen. - Lab Data Result diagrams: 11/22/21 10:25 11/22/21 10:25 Lab Results 11/22/21 11/22/21 11/22/21 Range/Units 10:25 10:25 10:25 WBC 12.7 H (3.8-10.6) k/uL RBC 2.38 L (4.30-5.90) m/uL Hgb 6.7 L* D (13.0-17.5) gm/dL Hct 20.5 L (39.0-53.0) % MCV 86.1 (80.0-100.0) fL MCH 28.0 (25.0-35.0) pg MCHC 32.5 (31.0-37.0) g/dL RDW 13.3 (11.5-15.5) % Plt Count 282 (150-450) k/uL MPV 7.3 Neutrophils % 81 % Lymphocytes % 12 % Monocytes % 4 % Eosinophils % 1 % Basophils % 0 % Neutrophils # 10.3 H (1.3-7.7) k/uL Lymphocytes # 1.5 (1.0-4.8) k/uL Monocytes # 0.5 (0-1.0) k/uL Eosinophils # 0.2 (0-0.7) k/uL Basophils # 0.0 (0-0.2) k/uL Hypochromasia Slight PT 11.8 (9.0-12.0) sec INR 1.1 (<1.2) APTT 28.3 (22.0-30.0) sec Sodium 138 (137-145) mmol/L Potassium 5.8 H (3.5-5.1) mmol/L Chloride 110 H (98-107) mmol/L Carbon Dioxide 23 (22-30) mmol/L Anion Gap 5 mmol/L BUN 68 H (9-20) mg/dL Creatinine 2.74 H (0.66-1.25) mg/dL Est GFR (CKD-EPI)AfAm 30 (>60 ml/min/1.73 sqM) Est GFR (CKD-EPI)NonAf 26 (>60 ml/min/1.73 sqM) Glucose 141 H (74-99) mg/dL Calcium 8.1 L (8.4-10.2) mg/dL Total Bilirubin 0.1 L (0.2-1.3) mg/dL AST 17 (17-59) U/L ALT 11 (4-49) U/L Alkaline Phosphatase 64 (38-126) U/L Total Protein 5.7 L (6.3-8.2) g/dL Albumin 3.3 L (3.5-5.0) g/dL Critical Care Time Critical Care Time: Yes Total Critical Care Time: 32 Disposition Clinical Impression: Surgical wound hemorrhage after dental procedure, Anemia Disposition: ADMITTED IP TO THIS HOSP Is patient prescribed a controlled substance at d/c from ED?: No Referrals: Justine Guillen MD [Primary Care Provider] - 1-2 days Time of Disposition: 11:33
[2021-11-22 10:34] LABS: Basophils % (A) 0 %; Eosinophils # (A) 0.2 k/uL (0-0.7); Eosinophils % (A) 1 %; HCT 20.5 % (39.0-53.0); Hypochromasia Slight; Lymphocytes # (A) 1.5 k/uL (1.0-4.8); Lymphocytes % (A) 12 %; MCHC 32.5 g/dL (31.0-37.0); MCV 86.1 fL (80.0-100.0); Mean Platelet Volume 7.3; Monocytes # (A) 0.5 k/uL (0-1.0); Monocytes % (A) 4 %; Neutrophils # (A) 10.3 k/uL (1.3-7.7); Neutrophils % (A) 81 %; Platelet Count 282 k/uL (150-450); RBC 2.38 m/uL (4.30-5.90); RDW 13.3 % (11.5-15.5); WBC 12.7 k/uL (3.8-10.6)
[2021-11-22 10:46] LABS: HGB 6.7 gm/dL (13.0-17.5)
[2021-11-22 10:50] LABS: INR 1.1 (<1.2); Partial Thromboplastin Time 28.3 sec (22.0-30.0); Prothrombin Time 11.8 sec (9.0-12.0)
[2021-11-22 10:58] LABS: Albumin 3.3 g/dL (3.5-5.0); Calcium 8.1 mg/dL (8.4-10.2); Potassium 5.8 mmol/L (3.5-5.1); Total Bilirubin 0.1 mg/dL (0.2-1.3); Total Protein 5.7 g/dL (6.3-8.2)
[2021-11-22] MEDS ORDERED: NALOXONE 0.4 MG/ML 1 ML VIAL IV PRN (11:34)
[2021-11-22] MEDS ORDERED: LORATADINE 10 MG TAB PO PRN (12:36)
[2021-11-22] MEDS: MIDODRINE 5 MG TAB PO SCH ×2 (16:45→21:05)
[2021-11-22 17:50] LABS: Glucose,Whole Blood 122 mg/dL (70-110)
[2021-11-22] MEDS: GABAPENTIN 400 MG CAP PO SCH ×2 (17:57→22:14)
[2021-11-22] MEDS: BRIMONIDINE TARTRATE 0.2% DROPS 5 ML BTL RIGHT EYE SCH ×2 (17:57→22:14)
[2021-11-22] MEDS: SODIUM CHLORIDE 0.9% 1,000 ML IV SCH (17:58)
[2021-11-22] MEDS: INSULN ASP PRT/INSULIN ASPART 100 UNIT/ML 10 ML VIAL SQ SCH (17:58)
[2021-11-22] MEDS: hydrALAZINE HCL 25 MG TAB PO SCH (17:58)
[2021-11-22 20:46] LABS: Glucose,Whole Blood 138 mg/dL (70-110)
[2021-11-22] MEDS: buPROPion SR 150 MG TABLET.ER PO SCH (21:05)
[2021-11-22] MEDS: METHYLPHENIDATE HCL 10 MG TAB PO SCH (21:05)
[2021-11-22] MEDS: BENZTROPINE MESYLATE 1 MG TAB PO SCH (21:05)
[2021-11-22] MEDS: ATORVASTATIN 40 MG TAB PO SCH (21:05)
--- NOTE | 2021-11-23 00:33 | HP ---
HISTORY AND PHYSICAL CHIEF COMPLAINT: Bleeding from the gums and anemia. HISTORY OF PRESENT ILLNESS: This is a 50-year-old gentleman with a past medical history of diabetes mellitus, hypertension, multiple medical problems, being followed by Dr. Guillen in the outpatient setting, who apparently had a dental extraction recently. The patient had multiple teeth extractions in the past, and the patient had continuous bleeding. The patient is on Eliquis, and hemoglobin was found to be 6.7. The patient was admitted for further evaluation and treatment. There is no history of any fever, rigors, or chills at this time. PAST MEDICAL HISTORY: Reviewed and include diabetes mellitus and hypertension. HOME MEDICATIONS: Again reviewed, include Eliquis 5 mg p.o. b.i.d. Dose and rest of the medications reviewed. ALLERGIES: Lactose. FAMILY HISTORY: History of diabetes mellitus in the family. SOCIAL HISTORY: No history of smoking. alcohol. REVIEW OF SYSTEMS: A 14-point review of system is negative. PHYSICAL EXAMINATION: VITAL SIGNS: Pulse is 101, blood pressure 170/90, respirations 20. HEENT: Some significant bleeding and hematomas with blood present in the lips and gums. NECK: No JVD. CARDIOVASCULAR: S1, S2 muffled. RESPIRATION: No rhonchi. No crackles. ABDOMEN: Soft. LEGS: No edema. NERVOUS SYSTEM: Diffusely weak. Tremors present. LABORATORY DATA: Labs reviewed. Hemoglobin 6.7. Other labs are noted. ASSESSMENT: 1. Significant bleeding from the gums and acute postop blood loss anemia. 2. Chronic kidney disease. 3. Diabetes mellitus type 2. 4. History of cerebrovascular accident, transient ischemic attack. 5. He was on Eliquis. 6. Multiple medical issues. RECOMMENDATION AND DISCUSSION: This is a 50-year-old gentleman, who presented with multiple complex medical issues. At this time, I will recommend 1 unit of transfusion at least, otherwise repeat labs, closely monitor, repeat hemoglobin also will be arranged. The patient had embolic stroke of the right-sided, the patient is in tPA. I would also monitor the patient closely. Continue the rest of medications. Prognosis guarded. Further recommendations to follow. MMODL / IJN: [id number] /
[2021-11-23 07:27] LABS: Glucose,Whole Blood 143 mg/dL (70-110)
[2021-11-23] MEDS: GABAPENTIN 400 MG CAP PO SCH ×3 (08:04→20:28)
[2021-11-23] MEDS: PIOGLITAZONE 15 MG TAB PO SCH (08:05)
[2021-11-23] MEDS: hydrALAZINE HCL 25 MG TAB PO SCH ×3 (08:05→18:11)
[2021-11-23] MEDS: PANTOPRAZOLE 40 MG TABLET PO SCH (08:05)
[2021-11-23] MEDS: VENLAFAXINE HCL ER 75 MG CAP PO SCH (08:05)
[2021-11-23] MEDS: lisinopriL 10 MG TAB PO SCH (08:05)
[2021-11-23] MEDS: buPROPion SR 150 MG TABLET.ER PO SCH ×2 (08:05→20:28)
[2021-11-23] MEDS: amLODIPine 10 MG TAB PO SCH (08:05)
[2021-11-23] MEDS: BENZTROPINE MESYLATE 1 MG TAB PO SCH ×2 (08:05→20:28)
[2021-11-23] MEDS: INSULN ASP PRT/INSULIN ASPART 100 UNIT/ML 10 ML VIAL SQ SCH ×2 (08:11→18:11)
[2021-11-23] MEDS: MIDODRINE 5 MG TAB PO SCH ×3 (08:37→20:28)
[2021-11-23 09:02] LABS: African American GFR (CKD) 33.7 (60.0-200.0); Anion Gap 9.3 mmol/L (10.00-18.00); BUN/Creat Ratio 32.52 Ratio (12.00-20.00); Blood Urea Nitrogen 81.3 mg/dL (9.0-27.0); Calcium 8.3 mg/dL (8.7-10.3); Carbon Dioxide 22.7 mmol/L (20.0-27.5); Non-African American GFR(CKD) 29.1 (60.0-200.0); Potassium 5.3 mmol/L (3.5-5.5)
[2021-11-23 10:19] LABS: HCT 18.9 % (39.6-50.0); HGB 5.9 g/dL (13.0-17.0); MCH 26.7 pg (27.0-32.0); MCHC 31.2 g/dL (32.0-37.0); MCV 85.5 fL (80.0-97.0); NRBC Per 100 WBC 0 /100 WBCS (0.0-0.0); Platelet Count 246 X 10*3/uL (140-440); RBC 2.21 X 10*6/uL (4.40-5.60)
[2021-11-23 10:50] LABS: Basophils # (A) 0.04 X 10*3/uL (0.00-0.10); Basophils % (A) 0.5 %; Eosinophils # (A) 0.26 X 10*3/uL (0.04-0.35); Eosinophils % (A) 3.1 %; Immature Grans, Automated 0.2 %; Lymphocytes # (A) 1.84 X 10*3/uL (0.90-5.00); Lymphocytes % (A) 21.9 %; Monocytes # (A) 0.45 X 10*3/uL (0.20-1.00); Monocytes % (A) 5.4 %; Neutrophils # (A) 5.79 X 10*3/uL (1.80-7.70); Neutrophils % (A) 68.9 %
[2021-11-23 10:51] LABS: Rouleaux PRESENT
[2021-11-23 11:48] LABS: Glucose,Whole Blood 145 mg/dL (70-110)
[2021-11-23] MEDS: SODIUM CHLORIDE 0.9% 1,000 ML IV SCH (12:48)
[2021-11-23] MEDS: METHYLPHENIDATE HCL 10 MG TAB PO SCH ×2 (12:50→20:28)
[2021-11-23] MEDS: BRIMONIDINE TARTRATE 0.2% DROPS 5 ML BTL RIGHT EYE SCH ×3 (14:35→20:28)
[2021-11-23] MEDS ORDERED: GELATIN SPONGE,ABSORB (LARGE) 1 EACH SPONGE TOPICAL STA (15:39)
[2021-11-23] MEDS ORDERED: THROMBIN (BOVINE) 5,000 UNIT VIAL TOPICAL ONE (15:45)
[2021-11-23 16:42] LABS: Glucose,Whole Blood 134 mg/dL (70-110)
--- NOTE | 2021-11-23 16:57 | P.GSCN ---
History of Present Illness Consult date: 11/23/21 Reason for Consult: Mouth bleeding status post dental extractions 1 week ago Requesting physician: Maria Luz Johnson History of present illness: Patient had his teeth extracted that [facility] week ago at that time reported that h is Eliquis had been stopped. He reported that he had normal postoperative course until yesterday when his mouth started bleeding again. He attempted to control this at home for a while and then came into the ED reason evaluated the bleeding had stopped at that time but his hemoglobin was low and he was admitted for evaluation. Per the nurse today he did have episode of bleeding again but the nurse was unable to tell where the bleeding came from. And the quantity of blood loss at the time was unclear. Review of Systems Patient is alert and oriented 3 resting in bed. 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 He reports no recent bleeding and no pain in the mouth. 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/walks short distances with walker, IDDM type II, neuropathy bilateral legs/feet, gastroparesis, autonomic dysfunction, CKD stage III, BPH, hypotension at times, vertigo when first stands, ELISSA/does not wear his cpap, hypothyroid, bilateral glaucoma/retinal problems History of Any Multi-Drug Resistant Organisms: MRSA Year Discovered:: 04/22/16 MDRO Source:: Right Hand Past Surgical History: Orthopedic Surgery Additional Past Surgical History / Comment(s): Recent 6 teeth extracted, PETRA, bilateral eye retinal scraping, bilateral eye cataract removals, colonoscopies Past Anesthesia/Blood Transfusion Reactions: No Reported Reaction Smoking Status: Never smoker - Past Family History Mother Family Medical History: Diabetes Mellitus, Renal Disease Additional Family Medical History / Comment(s): Mother is alive at age 61 with history of diabetes (wears insulin pump). Brother(s) Additional Family Medical History / Comment(s): Patient has 2 brothers and one has history of diabetes and one has no major medical problems. Medications and Allergies Home Medications Medication Instructions Recorded Confirmed Type Omeprazole 40 mg PO DAILY 03/27/20 11/22/21 History Venlafaxine HCl [Effexor XR] 225 mg PO DAILY 03/27/20 11/22/21 History buPROPion HCL [Wellbutrin SR] 150 mg PO BID 03/27/20 11/22/21 History Insulin NPH Hum/Reg Insulin Hm 20 unit SQ AC-BID 06/29/20 11/22/21 History [humuLIN 70/30 Kwikpen] Methylphenidate HCl 20 mg PO BID 06/29/20 11/22/21 History Hydrocodone/Acetaminophen [[place] 1 tab PO TID PRN 06/30/20 11/22/21 History 7.5-325] amLODIPine [Norvasc] 10 mg PO DAILY tab 07/03/20 11/22/21 Rx lisinopriL [Zestril] 10 mg PO DAILY tab 07/03/20 11/22/21 Rx Apixaban [Eliquis] 5 mg PO BID 09/25/21 11/22/21 History Benztropine Mesylate [Cogentin] 1 mg PO BID 09/25/21 11/22/21 History Brimonidine Tartrate [Alphagan P 1 drop RIGHT EYE TID 09/25/21 11/22/21 History 0.2% Ophth Soln] Dapagliflozin Propanediol [Farxiga] 10 mg PO DAILY 09/25/21 11/22/21 History Gabapentin [Neurontin] 400 mg PO TID 09/25/21 11/22/21 History Loratadine [Claritin] 10 mg PO DAILY PRN 09/25/21 11/22/21 History Midodrine HCl [ProAmatine] 10 mg PO TID 09/25/21 11/22/21 History Pioglitazone [Actos] 15 mg PO DAILY 09/25/21 11/22/21 History Rosuvastatin [Crestor] 20 mg PO HS 09/25/21 11/22/21 History hydrALAZINE HCL [Apresoline] 25 mg PO TID-W/MEALS 09/25/21 11/22/21 History Allergies Allergy/AdvReac Type Severity Reaction Status Date / Time lactose AdvReac Nausea & Verified 11/22/21 11:49 Vomiting & Diarrhea Surgical - Exam Vital Signs Temp Pulse Resp BP Pulse Ox 98.9 F 101 H 20 117/95 91 L 11/22/21 10:00 11/22/21 10:00 11/22/21 10:00 11/22/21 10:00 11/22/21 10:00 Patient is able to open his mouth completely reports no pain does have dried blood around the corners of his mouth and his lips. His recent surgical extractions of all of his upper teeth appear to be healing well. No active bleeding noted. He does have several lower teeth which are in moderate disrepair. No sharp teeth that are hitting the upper gums when he Ocludes an areas were bleeding could occur. No obvious swelling noted no airway compromise. - General well developed, well nourished, no pain - Musculoskeletal Obvious tardive dyskinesia of mouth jaws hands and neck. Results Patient's hemoglobin appears to be trending down - Labs 11/23/21 05:50 11/23/21 05:50 Abnormal Lab Results - Last 24 Hours (Table) 11/22/21 11/22/21 11/22/21 Range/Units 11:50 17:49 20:45 RBC (4.40-5.60) X 10*6/uL Hgb (13.0-17.0) g/dL Hct (39.6-50.0) % MCH (27.0-32.0) pg MCHC (32.0-37.0) g/dL Anion Gap (10.00-18.00) mmol/L BUN (9.0-27.0) mg/dL Creatinine (0.6-1.5) mg/dL Est GFR (CKD-EPI)AfAm (60.0-200.0) Est GFR (CKD-EPI)NonAf (60.0-200.0) BUN/Creatinine Ratio (12.00-20.00) Ratio Glucose (70-110) mg/dL POC Glucose (mg/dL) 122 H 138 H (70-110) mg/dL Calcium (8.7-10.3) mg/dL Crossmatch See Detail 11/23/21 11/23/21 11/23/21 Range/Units 05:50 05:50 07:25 RBC 2.21 L (4.40-5.60) X 10*6/uL Hgb 5.9 L* (13.0-17.0) g/dL Hct 18.9 L* (39.6-50.0) % MCH 26.7 L (27.0-32.0) pg MCHC 31.2 L (32.0-37.0) g/dL Anion Gap 9.30 L (10.00-18.00) mmol/L BUN 81.3 H (9.0-27.0) mg/dL Creatinine 2.5 H (0.6-1.5) mg/dL Est GFR (CKD-EPI)AfAm 33.7 L (60.0-200.0) Est GFR (CKD-EPI)NonAf 29.1 L (60.0-200.0) BUN/Creatinine Ratio 32.52 H (12.00-20.00) Ratio Glucose 134 H (70-110) mg/dL POC Glucose (mg/dL) 143 H (70-110) mg/dL Calcium 8.3 L (8.7-10.3) mg/dL Crossmatch 11/23/21 11/23/21 Range/Units 11:46 16:39 RBC (4.40-5.60) X 10*6/uL Hgb (13.0-17.0) g/dL Hct (39.6-50.0) % MCH (27.0-32.0) pg MCHC (32.0-37.0) g/dL Anion Gap (10.00-18.00) mmol/L BUN (9.0-27.0) mg/dL Creatinine (0.6-1.5) mg/dL Est GFR (CKD-EPI)AfAm (60.0-200.0) Est GFR (CKD-EPI)NonAf (60.0-200.0) BUN/Creatinine Ratio (12.00-20.00) Ratio Glucose (70-110) mg/dL POC Glucose (mg/dL) 145 H 134 H (70-110) mg/dL Calcium (8.7-10.3) mg/dL Crossmatch Diabetes panel 11/23/21 Range/Units 05:50 Sodium 139 (135-145) mmol/L Potassium 5.3 (3.5-5.5) mmol/L Chloride 107 (96-109) mmol/L Carbon Dioxide 22.7 (20.0-27.5) mmol/L BUN 81.3 H (9.0-27.0) mg/dL Creatinine 2.5 H (0.6-1.5) mg/dL Glucose 134 H (70-110) mg/dL Calcium 8.3 L (8.7-10.3) mg/dL Calcium panel 11/23/21 Range/Units 05:50 Calcium 8.3 L (8.7-10.3) mg/dL Pituitary panel 11/23/21 Range/Units 05:50 Sodium 139 (135-145) mmol/L Potassium 5.3 (3.5-5.5) mmol/L Chloride 107 (96-109) mmol/L Carbon Dioxide 22.7 (20.0-27.5) mmol/L BUN 81.3 H (9.0-27.0) mg/dL Creatinine 2.5 H (0.6-1.5) mg/dL Glucose 134 H (70-110) mg/dL Calcium 8.3 L (8.7-10.3) mg/dL Adrenal panel 11/23/21 Range/Units 05:50 Sodium 139 (135-145) mmol/L Potassium 5.3 (3.5-5.5) mmol/L Chloride 107 (96-109) mmol/L Carbon Dioxide 22.7 (20.0-27.5) mmol/L BUN 81.3 H (9.0-27.0) mg/dL Creatinine 2.5 H (0.6-1.5) mg/dL Glucose 134 H (70-110) mg/dL Calcium 8.3 L (8.7-10.3) mg/dL Assessment and Plan Assessment: Oral bleeding most likely related to his eloquence medication. Bleeding appears to have stopped. Anemia Plan: Given the current situation with no bleeding in the mouth, no surgical intervention recommendations at this time. I suspect the eliquis is the culprit for the bleeding postoperatively and possibly the patient had cut his gums with some food products. We have ordered topical thrombin to the bedside as well as large pieces of gauze. Nurse and tach were educated as to the proper use of topical thrombin and gauze if the bleeding were to resume. Please reconsult if the patient persists with oral bleeding or surgical intervention can be of help Time with Patient: Greater than 30
--- NOTE | 2021-11-23 18:37 | P.PN ---
Subjective Progress Note Date: 11/23/21 Patient had his teeth extracted 1 week ago at that time reported that his Eliquis had been stopped. He reported that he had normal postoperative course until yesterday when his mouth started bleeding again. He attempted to control this at home for a while and then came into the ED reason evaluated the bleeding had stopped at that time but his hemoglobin was low and he was admitted for evaluation. Per the nurse today he did have episode of bleeding again but the nurse was unable to tell where the bleeding came from. And the quantity of blood loss at the time was unclear. Objective - Vital Signs Vital signs: Vital Signs Temp 98.4 F 11/23/21 12:29 Pulse 82 11/23/21 12:59 Resp 17 11/23/21 12:59 BP 91/60 11/23/21 12:59 Pulse Ox 96 11/23/21 12:25 FiO2 Intake & Output 11/22/21 11/23/21 11/23/21 18:59 06:59 18:59 Intake Total 310 0 Balance 310 0 Weight 90.718 kg Intake: Blood Product 310 0 Unit 0 Rc As-1 Unit 310 [id number] Other: Voiding Method Urinal Urinal # Voids 1 2 - Exam PHYSICAL EXAMINATION: GENERAL: The patient is alert and oriented x3, not in any acute distress. Well developed, well nourished. HEENT: Pupils are round and equally reacting to light. EOMI. No scleral icterus. No conjunctival pallor. Normocephalic, atraumatic. No pharyngeal erythema. No thyromegaly. CARDIOVASCULAR: S1 and S2 present. No murmurs, rubs, or gallops. PULMONARY: Chest is clear to auscultation, no wheezing or crackles. ABDOMEN: Soft, nontender, nondistended, normoactive bowel sounds. No palpable organomegaly. MUSCULOSKELETAL: No joint swelling or deformity. EXTREMITIES: No cyanosis, clubbing, or pedal edema. NEUROLOGICAL: Gross neurological examination did not reveal any focal deficits. SKIN: No rashes. - Labs CBC & Chem 7: 11/23/21 05:50 11/23/21 05:50 Labs: Abnormal Lab Results - Last 24 Hours (Table) 11/22/21 11/22/21 11/22/21 Range/Units 11:50 17:49 20:45 RBC (4.40-5.60) X 10*6/uL Hgb (13.0-17.0) g/dL Hct (39.6-50.0) % MCH (27.0-32.0) pg MCHC (32.0-37.0) g/dL Anion Gap (10.00-18.00) mmol/L BUN (9.0-27.0) mg/dL Creatinine (0.6-1.5) mg/dL Est GFR (CKD-EPI)AfAm (60.0-200.0) Est GFR (CKD-EPI)NonAf (60.0-200.0) BUN/Creatinine Ratio (12.00-20.00) Ratio Glucose (70-110) mg/dL POC Glucose (mg/dL) 122 H 138 H (70-110) mg/dL Calcium (8.7-10.3) mg/dL Crossmatch See Detail 11/23/21 11/23/21 11/23/21 Range/Units 05:50 05:50 07:25 RBC 2.21 L (4.40-5.60) X 10*6/uL Hgb 5.9 L* (13.0-17.0) g/dL Hct 18.9 L* (39.6-50.0) % MCH 26.7 L (27.0-32.0) pg MCHC 31.2 L (32.0-37.0) g/dL Anion Gap 9.30 L (10.00-18.00) mmol/L BUN 81.3 H (9.0-27.0) mg/dL Creatinine 2.5 H (0.6-1.5) mg/dL Est GFR (CKD-EPI)AfAm 33.7 L (60.0-200.0) Est GFR (CKD-EPI)NonAf 29.1 L (60.0-200.0) BUN/Creatinine Ratio 32.52 H (12.00-20.00) Ratio Glucose 134 H (70-110) mg/dL POC Glucose (mg/dL) 143 H (70-110) mg/dL Calcium 8.3 L (8.7-10.3) mg/dL Crossmatch 11/23/21 Range/Units 11:46 RBC (4.40-5.60) X 10*6/uL Hgb (13.0-17.0) g/dL Hct (39.6-50.0) % MCH (27.0-32.0) pg MCHC (32.0-37.0) g/dL Anion Gap (10.00-18.00) mmol/L BUN (9.0-27.0) mg/dL Creatinine (0.6-1.5) mg/dL Est GFR (CKD-EPI)AfAm (60.0-200.0) Est GFR (CKD-EPI)NonAf (60.0-200.0) BUN/Creatinine Ratio (12.00-20.00) Ratio Glucose (70-110) mg/dL POC Glucose (mg/dL) 145 H (70-110) mg/dL Calcium (8.7-10.3) mg/dL Crossmatch Assessment and Plan Assessment: 1. Significant bleeding from gums; postop 2. Acute blood loss anemia 3. Chronic kidney disease 4. Diabetes mellitus type 2 5. History of CVA/TIA -- Patient continues to have excessive bleeding with hemoglobin dropping down to 5.1; we will type crossmatch and transfuse 1 more unit of packed RBCs along with 1 unit of fresh frozen plasma; katherin palumbos has been placed on hold; monitor H&H closely and transfuse as needed; consult oral surgery for further recommendations
[2021-11-23 19:17] LABS: Hypochromasia Slight; MCH 28.4 pg (25.0-35.0); MCHC 32.7 g/dL (31.0-37.0); MCV 86.8 fL (80.0-100.0); Mean Platelet Volume 7.2; Platelet Count 241 k/uL (150-450); Poikilocytosis Slight; RBC 2.28 m/uL (4.30-5.90); RDW 13.5 % (11.5-15.5); WBC 8.8 k/uL (3.8-10.6)
[2021-11-23 19:29] LABS: HCT 19.8 % (39.0-53.0); HGB 6.5 gm/dL (13.0-17.5)
[2021-11-23] MEDS: ATORVASTATIN 40 MG TAB PO SCH (20:28)
[2021-11-23 20:44] LABS: Glucose,Whole Blood 162 mg/dL (70-110)
[2021-11-23] MEDS: HYDROcodone/APAP 7.5-325MG 1 EACH TAB PO PRN (22:16)
[2021-11-24 05:51] LABS: HGB 7.5 gm/dL (13.0-17.5); MCH 28.3 pg (25.0-35.0); MCHC 32.6 g/dL (31.0-37.0); MCV 86.8 fL (80.0-100.0); Mean Platelet Volume 7.5; Platelet Count 229 k/uL (150-450); Poikilocytosis Slight; RBC 2.65 m/uL (4.30-5.90); RDW 13.8 % (11.5-15.5)
[2021-11-24 07:53] LABS: Glucose,Whole Blood 125 mg/dL (70-110)
[2021-11-24] MEDS: INSULN ASP PRT/INSULIN ASPART 100 UNIT/ML 10 ML VIAL SQ SCH ×2 (08:06→17:36)
[2021-11-24] MEDS: buPROPion SR 150 MG TABLET.ER PO SCH ×2 (08:06→20:22)
[2021-11-24] MEDS: amLODIPine 10 MG TAB PO SCH (08:06)
[2021-11-24] MEDS: PIOGLITAZONE 15 MG TAB PO SCH (08:06)
[2021-11-24] MEDS: MIDODRINE 5 MG TAB PO SCH ×3 (08:06→20:22)
[2021-11-24] MEDS: hydrALAZINE HCL 25 MG TAB PO SCH ×3 (08:06→17:49)
[2021-11-24] MEDS: BENZTROPINE MESYLATE 1 MG TAB PO SCH ×2 (08:06→20:22)
[2021-11-24] MEDS: PANTOPRAZOLE 40 MG TABLET PO SCH (08:07)
[2021-11-24] MEDS: VENLAFAXINE HCL ER 75 MG CAP PO SCH (08:07)
[2021-11-24] MEDS: lisinopriL 10 MG TAB PO SCH (08:07)
[2021-11-24] MEDS: BRIMONIDINE TARTRATE 0.2% DROPS 5 ML BTL RIGHT EYE SCH ×3 (08:08→20:23)
[2021-11-24] MEDS: METHYLPHENIDATE HCL 10 MG TAB PO SCH ×2 (08:12→21:01)
[2021-11-24] MEDS: GABAPENTIN 400 MG CAP PO SCH ×3 (08:12→20:22)
[2021-11-24 08:57] LABS: African American GFR (CKD) 30.7 (60.0-200.0); Anion Gap 9.8 mmol/L (10.00-18.00); BUN/Creat Ratio 31.11 Ratio (12.00-20.00); Calcium 8.4 mg/dL (8.7-10.3); Carbon Dioxide 23.2 mmol/L (20.0-27.5); Non-African American GFR(CKD) 26.5 (60.0-200.0); Potassium 5.3 mmol/L (3.5-5.5)
[2021-11-24 11:53] LABS: Glucose,Whole Blood 100 mg/dL (70-110)
[2021-11-24] MEDS: SODIUM CHLORIDE 0.9% 1,000 ML IV SCH (15:53)
[2021-11-24 17:26] LABS: Glucose,Whole Blood 87 mg/dL (70-110)
[2021-11-24] MEDS: ATORVASTATIN 40 MG TAB PO SCH (20:22)
[2021-11-24 21:10] LABS: Glucose,Whole Blood 165 mg/dL (70-110)
[2021-11-25 07:41] LABS: Glucose,Whole Blood 111 mg/dL (70-110)
[2021-11-25] MEDS: PIOGLITAZONE 15 MG TAB PO SCH (08:30)
[2021-11-25] MEDS: hydrALAZINE HCL 25 MG TAB PO SCH ×3 (08:30→17:32)
[2021-11-25] MEDS: PANTOPRAZOLE 40 MG TABLET PO SCH (08:30)
[2021-11-25] MEDS: lisinopriL 10 MG TAB PO SCH (08:30)
[2021-11-25] MEDS: INSULN ASP PRT/INSULIN ASPART 100 UNIT/ML 10 ML VIAL SQ SCH ×2 (08:30→17:32)
[2021-11-25] MEDS: amLODIPine 10 MG TAB PO SCH (08:30)
[2021-11-25] MEDS: MIDODRINE 5 MG TAB PO SCH ×3 (08:30→19:57)
[2021-11-25] MEDS: BENZTROPINE MESYLATE 1 MG TAB PO SCH ×2 (08:30→19:57)
[2021-11-25] MEDS: VENLAFAXINE HCL ER 75 MG CAP PO SCH (08:30)
[2021-11-25] MEDS: buPROPion SR 150 MG TABLET.ER PO SCH ×2 (08:30→19:56)
[2021-11-25] MEDS: BRIMONIDINE TARTRATE 0.2% DROPS 5 ML BTL RIGHT EYE SCH ×3 (08:31→19:57)
[2021-11-25] MEDS: METHYLPHENIDATE HCL 10 MG TAB PO SCH ×2 (08:35→19:57)
[2021-11-25] MEDS: GABAPENTIN 400 MG CAP PO SCH ×3 (08:35→19:57)
[2021-11-25 11:51] LABS: Glucose,Whole Blood 139 mg/dL (70-110)
[2021-11-25] MEDS: SODIUM CHLORIDE 0.9% 1,000 ML IV SCH (12:55)
[2021-11-25 13:00] LABS: Basophils % (A) 1 %; Eosinophils # (A) 0.3 k/uL (0-0.7); Eosinophils % (A) 4 %; HCT 21.7 % (39.0-53.0); HGB 7.1 gm/dL (13.0-17.5); Hypochromasia Slight; Lymphocytes # (A) 1.8 k/uL (1.0-4.8); Lymphocytes % (A) 24 %; MCH 28.7 pg (25.0-35.0); MCHC 32.7 g/dL (31.0-37.0); Mean Platelet Volume 7.2; Monocytes # (A) 0.5 k/uL (0-1.0); Monocytes % (A) 7 %; Neutrophils # (A) 4.7 k/uL (1.3-7.7); Neutrophils % (A) 64 %; Platelet Count 306 k/uL (150-450); Poikilocytosis Slight; RBC 2.46 m/uL (4.30-5.90); RDW 14.1 % (11.5-15.5); WBC 7.4 k/uL (3.8-10.6)
[2021-11-25 17:22] LABS: Glucose,Whole Blood 75 mg/dL (70-110)
[2021-11-25] MEDS: ATORVASTATIN 40 MG TAB PO SCH (19:57)
[2021-11-25 20:07] LABS: Glucose,Whole Blood 173 mg/dL (70-110)
[2021-11-26 04:08] LABS: HCT 20.3 % (39.0-53.0); Hypochromasia Slight; MCH 28.7 pg (25.0-35.0); MCHC 32.6 g/dL (31.0-37.0); Mean Platelet Volume 7.2; Platelet Count 317 k/uL (150-450); Poikilocytosis Slight; RBC 2.31 m/uL (4.30-5.90); RDW 14.5 % (11.5-15.5); WBC 6.6 k/uL (3.8-10.6)
[2021-11-26 04:11] LABS: HGB 6.6 gm/dL (13.0-17.5)
[2021-11-26 07:35] LABS: Glucose,Whole Blood 107 mg/dL (70-110)
--- NOTE | 2021-11-26 08:40 | P.PN ---
Subjective Progress Note Date: 11/24/21 Principal diagnosis: Significant bleeding from gums; postop Acute blood loss anemia Patient had his teeth extracted 1 week ago at that time reported that his Eliquis had been stopped. He reported that he had normal postoperative course until yesterday when his mouth started bleeding again. He attempted to control this at home for a while and then came into the ED reason evaluated the bleeding had stopped at that time but his hemoglobin was low and he was admitted for evaluation. Per the nurse today he did have episode of bleeding again but the davonte stephen was unable to tell where the bleeding came from. And the quantity of blood loss at the time was unclear. 11/24/2021 Patient is seen and evaluated in room at bedside; discussed with nursing staff; no further bleeding is reported; patient did required and other unit of packed RBC transfusion for hemoglobin at 5.9 Patient has been evaluated by oral surgery and no bleeding in the mouth is noted; no surgical intervention recommended; eliquis is the culprit for the bl eeding postoperatively and possibly the patient had cut his gums with some food products Topical thrombin is recommended if bleeding recurs Objective - Vital Signs Vital signs: Vital Signs Temp 97.7 F 11/24/21 07:00 Pulse 75 11/24/21 07:00 Resp 16 11/24/21 07:00 BP 117/80 11/24/21 07:00 Pulse Ox 95 11/24/21 07:00 FiO2 Intake & Output 11/23/21 11/24/21 11/24/21 18:59 06:59 18:59 Intake Total 642 310 Balance 642 310 Intake: Oral 118 Blood Product 524 310 Ffp 24 Pher Acda Unit 214 [id number] As-1 Unit 310 [id number] As-1 Unit 310 [id number] Other: Voiding Method Urinal Urinal # Voids 1 2 1 - Exam PHYSICAL EXAMINATION: GENERAL: The patient is alert and oriented x3, not in any acute distress. Well developed, well nourished. HEENT: Pupils are round and equally reacting to light. EOMI. No scleral icterus. No conjunctival pallor. Normocephalic, atraumatic. No pharyngeal erythema. No thyromegaly. CARDIOVASCULAR: S1 and S2 present. No murmurs, rubs, or gallops. PULMONARY: Chest is clear to auscultation, no wheezing or crackles. ABDOMEN: Soft, nontender, nondistended, normoactive bowel sounds. No palpable organomegaly. MUSCULOSKELETAL: No joint swelling or deformity. EXTREMITIES: No cyanosis, clubbing, or pedal edema. NEUROLOGICAL: Gross neurological examination did not reveal any focal deficits. SKIN: No rashes. - Labs CBC & Chem 7: 11/26/21 03:30 11/24/21 05:26 Labs: Abnormal Lab Results - Last 24 Hours (Table) 11/22/21 11/23/21 11/23/21 Range/Units 11:50 16:39 18:59 RBC 2.28 L (4.30-5.90) m/uL Hgb 6.5 L* (13.0-17.5) gm/dL Hct 19.8 L* (39.0-53.0) % Anion Gap (10.00-18.00) mmol/L BUN (9.0-27.0) mg/dL Creatinine (0.6-1.5) mg/dL Est GFR (CKD-EPI)AfAm (60.0-200.0) Est GFR (CKD-EPI)NonAf (60.0-200.0) BUN/Creatinine Ratio (12.00-20.00) Ratio POC Glucose (mg/dL) 134 H (70-110) mg/dL Calcium (8.7-10.3) mg/dL Crossmatch See Detail 11/23/21 11/24/21 11/24/21 Range/Units 20:43 05:26 05:26 RBC 2.65 L (4.30-5.90) m/uL Hgb 7.5 L (13.0-17.5) gm/dL Hct 23.0 L (39.0-53.0) % Anion Gap 9.80 L (10.00-18.00) mmol/L BUN 84.0 H (9.0-27.0) mg/dL Creatinine 2.7 H (0.6-1.5) mg/dL Est GFR (CKD-EPI)AfAm 30.7 L (60.0-200.0) Est GFR (CKD-EPI)NonAf 26.5 L (60.0-200.0) BUN/Creatinine Ratio 31.11 H (12.00-20.00) Ratio POC Glucose (mg/dL) 162 H (70-110) mg/dL Calcium 8.4 L (8.7-10.3) mg/dL Crossmatch 11/24/21 Range/Units 07:46 RBC (4.30-5.90) m/uL Hgb (13.0-17.5) gm/dL Hct (39.0-53.0) % Anion Gap (10.00-18.00) mmol/L BUN (9.0-27.0) mg/dL Creatinine (0.6-1.5) mg/dL Est GFR (CKD-EPI)AfAm (60.0-200.0) Est GFR (CKD-EPI)NonAf (60.0-200.0) BUN/Creatinine Ratio (12.00-20.00) Ratio POC Glucose (mg/dL) 125 H (70-110) mg/dL Calcium (8.7-10.3) mg/dL Crossmatch Assessment and Plan Assessment: 1. Significant bleeding from gums; postop 2. Acute blood loss anemia 3. Chronic kidney disease 4. Diabetes mellitus type 2 5. History of CVA/TIA -- Patient continues to have excessive bleeding with hemoglobin dropping down to 5.1; we will type crossmatch and transfuse 1 more unit of packed RBCs along with 1 unit of fresh frozen plasma; katherin easley has been placed on hold; monitor H&H closely and transfuse as needed; consult oral surgery for further recommendations
[2021-11-26 10:10] LABS: Basophils % (A) 0 %; Eosinophils # (A) 0.3 k/uL (0-0.7); Eosinophils % (A) 4 %; HCT 22.4 % (39.0-53.0); HGB 7.2 gm/dL (13.0-17.5); Hypochromasia Slight; Lymphocytes # (A) 1.1 k/uL (1.0-4.8); Lymphocytes % (A) 14 %; MCH 28.7 pg (25.0-35.0); MCHC 32.2 g/dL (31.0-37.0); MCV 89.1 fL (80.0-100.0); Mean Platelet Volume 7.3; Monocytes # (A) 0.4 k/uL (0-1.0); Monocytes % (A) 5 %; Neutrophils # (A) 6.2 k/uL (1.3-7.7); Neutrophils % (A) 77 %; Platelet Count 366 k/uL (150-450); Poikilocytosis Slight; RBC 2.52 m/uL (4.30-5.90); RDW 14.4 % (11.5-15.5)
[2021-11-26] MEDS: hydrALAZINE HCL 25 MG TAB PO SCH ×3 (10:40→17:27)
[2021-11-26 10:50] LABS: Glucose,Whole Blood 139 mg/dL (70-110)
[2021-11-26] MEDS: INSULN ASP PRT/INSULIN ASPART 100 UNIT/ML 10 ML VIAL SQ SCH ×2 (11:00→23:06)
[2021-11-26] MEDS: VENLAFAXINE HCL ER 75 MG CAP PO SCH (11:04)
[2021-11-26] MEDS: PIOGLITAZONE 15 MG TAB PO SCH (11:04)
[2021-11-26] MEDS: GABAPENTIN 400 MG CAP PO SCH ×3 (11:04→20:54)
[2021-11-26] MEDS: PANTOPRAZOLE 40 MG TABLET PO SCH (11:04)
[2021-11-26] MEDS: BENZTROPINE MESYLATE 1 MG TAB PO SCH ×2 (11:04→20:54)
[2021-11-26] MEDS: BRIMONIDINE TARTRATE 0.2% DROPS 5 ML BTL RIGHT EYE SCH ×3 (11:05→20:55)
[2021-11-26] MEDS: MIDODRINE 5 MG TAB PO SCH ×3 (11:05→20:54)
[2021-11-26] MEDS: buPROPion SR 150 MG TABLET.ER PO SCH ×2 (11:05→20:54)
[2021-11-26] MEDS: lisinopriL 10 MG TAB PO SCH (11:05)
[2021-11-26] MEDS: amLODIPine 10 MG TAB PO SCH (11:18)
[2021-11-26 11:54] LABS: Glucose,Whole Blood 149 mg/dL (70-110)
[2021-11-26] MEDS: SODIUM CHLORIDE 0.9% 1,000 ML IV SCH (12:47)
[2021-11-26] MEDS: METHYLPHENIDATE HCL 10 MG TAB PO SCH ×2 (13:02→20:54)
--- NOTE | 2021-11-26 15:19 | P.PN ---
Subjective Progress Note Date: 11/26/21 Principal diagnosis: Significant bleeding from gums; postop Acute blood loss anemia Patient had his teeth extracted 1 week ago at that time reported that his Eliquis had been stopped. He reported that he had normal postoperative course until yesterday when his mouth started bleeding again. He attempted to control this at home for a while and then came into the ED reason evaluated the bleeding had stopped at that time but his hemoglobin was low and he was admitted for evaluation. Per the nurse today he did have episode of bleeding again but the davonte stephen was unable to tell where the bleeding came from. And the quantity of blood loss at the time was unclear. 11/25/2021 Patient is seen and evaluated in room at bedside; discussed with nursing staff; no further bleeding is reported; patient did required and other unit of packed RBC transfusion for hemoglobin at 5.9 Patient has been evaluated by oral surgery and no bleeding in the mouth is noted; no surgical intervention recommended; eliquis is the culprit for the bl eeding postoperatively and possibly the patient had cut his gums with some food products Topical thrombin is recommended if bleeding recurs 11/26/2021 Patient is seen and evaluated sitting up in bed; eager to be discharged This is a review temperature 90.8, pulse 76 heart has patient 16 and blood pressure of 113/74 with O2 saturation of 96 Blood work reveals a hemoglobin of 6.6 this morning; patient was ordered another unit of packed RBCs; repeat hemoglobin 12 hours after transfusion Per nursing staff there hasn't been any further active bleeding; we'll plan to monitor patient for another 24 hours posttransfusion with plans for discharge tomorrow if hemoglobin remained stable Objective - Vital Signs Vital signs: Vital Signs Temp 97.7 F 11/26/21 08:00 Pulse 83 11/26/21 08:00 Resp 16 11/26/21 08:00 BP 94/62 11/26/21 08:00 Pulse Ox 97 11/26/21 08:00 FiO2 Intake & Output 11/25/21 11/26/21 11/26/21 18:59 06:59 18:59 Intake Total 200 Balance 200 Intake: Oral 200 Other: Voiding Method Bedside Commode Bedside Commode Urinal # Voids 1 2 1 - Exam PHYSICAL EXAMINATION: GENERAL: The patient is alert and oriented x3, not in any acute distress. Well developed, well nourished. HEENT: Pupils are round and equally reacting to light. EOMI. No scleral icterus. No conjunctival pallor. Normocephalic, atraumatic. No pharyngeal erythema. No thyromegaly. CARDIOVASCULAR: S1 and S2 present. No murmurs, rubs, or gallops. PULMONARY: Chest is clear to auscultation, no wheezing or crackles. ABDOMEN: Soft, nontender, nondistended, normoactive bowel sounds. No palpable organomegaly. MUSCULOSKELETAL: No joint swelling or deformity. EXTREMITIES: No cyanosis, clubbing, or pedal edema. NEUROLOGICAL: Gross neurological examination did not reveal any focal deficits. SKIN: No rashes. - Labs CBC & Chem 7: 11/26/21 09:33 11/24/21 05:26 Labs: Abnormal Lab Results - Last 24 Hours (Table) 11/25/21 11/25/21 11/25/21 Range/Units 11:48 12:45 20:05 RBC 2.46 L (4.30-5.90) m/uL Hgb 7.1 L (13.0-17.5) gm/dL Hct 21.7 L (39.0-53.0) % POC Glucose (mg/dL) 139 H 173 H (70-110) mg/dL Crossmatch 11/26/21 11/26/21 Range/Units 03:30 05:10 RBC 2.31 L (4.30-5.90) m/uL Hgb 6.6 L* (13.0-17.5) gm/dL Hct 20.3 L (39.0-53.0) % POC Glucose (mg/dL) (70-110) mg/dL Crossmatch See Detail Assessment and Plan Assessment: 1. Significant bleeding from gums; postop 2. Acute blood loss anemia 3. Chronic kidney disease 4. Diabetes mellitus type 2 5. History of CVA/TIA -- Patient continues to have excessive bleeding with hemoglobin dropping down to 5.1; we will type crossmatch and transfuse 1 more unit of packed RBCs along with 1 unit of fresh frozen plasma; alk phos has been placed on hold; monitor H&H closely and transfuse as needed; consult oral surgery for further recommen dations
[2021-11-26 16:31] LABS: Glucose,Whole Blood 135 mg/dL (70-110)
[2021-11-26 16:35] LABS: Basophils % (A) 1 %; Eosinophils # (A) 0.3 k/uL (0-0.7); Eosinophils % (A) 4 %; HCT 25.1 % (39.0-53.0); HGB 8.2 gm/dL (13.0-17.5); Hypochromasia Slight; Lymphocytes # (A) 1.3 k/uL (1.0-4.8); Lymphocytes % (A) 19 %; MCHC 32.6 g/dL (31.0-37.0); MCV 88.8 fL (80.0-100.0); Mean Platelet Volume 7.5; Monocytes # (A) 0.4 k/uL (0-1.0); Monocytes % (A) 5 %; Neutrophils % (A) 71 %; Platelet Count 330 k/uL (150-450); RBC 2.83 m/uL (4.30-5.90); RDW 14.7 % (11.5-15.5)
[2021-11-26 19:36] LABS: Glucose,Whole Blood 172 mg/dL (70-110)
[2021-11-26] MEDS: ATORVASTATIN 40 MG TAB PO SCH (20:54)
[2021-11-26] MEDS: HYDROcodone/APAP 7.5-325MG 1 EACH TAB PO PRN (21:00)
[2021-11-27 07:13] LABS: Glucose,Whole Blood 121 mg/dL (70-110)
[2021-11-27 07:40] VITALS: BP 110/71; PULSE 76; RESP 18; TEMP 97.5
[2021-11-27 09:17] LABS: Glucose,Whole Blood 185 mg/dL (70-110)
[2021-11-27] MEDS: METHYLPHENIDATE HCL 10 MG TAB PO SCH (09:28)
[2021-11-27] MEDS: hydrALAZINE HCL 25 MG TAB PO SCH ×2 (09:28→13:11)
[2021-11-27] MEDS: amLODIPine 10 MG TAB PO SCH (09:29)
[2021-11-27] MEDS: lisinopriL 10 MG TAB PO SCH (09:29)
[2021-11-27] MEDS: PANTOPRAZOLE 40 MG TABLET PO SCH (09:29)
[2021-11-27] MEDS: BRIMONIDINE TARTRATE 0.2% DROPS 5 ML BTL RIGHT EYE SCH (09:29)
[2021-11-27] MEDS: GABAPENTIN 400 MG CAP PO SCH (09:29)
[2021-11-27] MEDS: BENZTROPINE MESYLATE 1 MG TAB PO SCH (09:29)
[2021-11-27] MEDS: MIDODRINE 5 MG TAB PO SCH (09:30)
[2021-11-27] MEDS: PIOGLITAZONE 15 MG TAB PO SCH (09:30)
[2021-11-27] MEDS: INSULN ASP PRT/INSULIN ASPART 100 UNIT/ML 10 ML VIAL SQ SCH (09:30)
[2021-11-27] MEDS: VENLAFAXINE HCL ER 75 MG CAP PO SCH (09:30)
[2021-11-27] MEDS: buPROPion SR 150 MG TABLET.ER PO SCH (09:30)
[2021-11-27 10:24] LABS: Basophils % (A) 0 %; Eosinophils # (A) 0.3 k/uL (0-0.7); Eosinophils % (A) 3 %; HCT 27.5 % (39.0-53.0); HGB 8.6 gm/dL (13.0-17.5); Hypochromasia Slight; Lymphocytes # (A) 1.4 k/uL (1.0-4.8); Lymphocytes % (A) 15 %; MCH 28.3 pg (25.0-35.0); MCHC 31.4 g/dL (31.0-37.0); MCV 89.9 fL (80.0-100.0); Mean Platelet Volume 7.1; Monocytes # (A) 0.3 k/uL (0-1.0); Monocytes % (A) 4 %; Neutrophils # (A) 6.9 k/uL (1.3-7.7); Neutrophils % (A) 77 %; Platelet Count 394 k/uL (150-450); RBC 3.06 m/uL (4.30-5.90)
[2021-11-27 11:57] LABS: Glucose,Whole Blood 178 mg/dL (70-110)
[2021-11-27] MEDS: SODIUM CHLORIDE 0.9% 1,000 ML IV SCH (12:48)
--- NOTE | 2021-11-28 11:49 | P.DS ---
Providers Date of admission: 11/23/21 13:52 Expected date of discharge: 11/27/21 Attending physician: Tiago Johnson Consults: 11/23/21 11:15 Consult Physician Routine Consulting Provider: José Luis Irvin Consult Reason/Comments: active oral bleeding recent teeth extraction Do you want consulting provider notified?: Yes Primary care physician: Justine Guillen Hospital Course: Final diagnosis 1. Significant bleeding from gums; postop 2. Acute blood loss anemia secondary to above 3. Chronic kidney disease 4. Diabetes mellitus type 2 5. History of CVA/TIA Discharge disposition Patient is being discharged in a stable condition with guarded prognosis to home with home care. Patient will follow-up with Dr. uGillen in the outpatient setting upon discharge. Patient is to follow-up with Dr. Rouse as well in the outpatient setting. Recommended holding anticoagulant until follow-up with primary care provider. Total time taken is greater than 35 minutes. Hospital course This is a 50-year-old male who was recently admitted with significant bleeding of the gums acute blood loss anemia and had recently stopped his Eliquis. Patient was evaluated by Dr. hernandez with no further bleeding noted and recommending to continue with soft diet and follow-up outpatient. Patient also to follow-up with primary care provider on discharge and continue with home care in the outpatient setting. Patient reports to feeling well and would like to go home today. Currently no reports of chest pain, shortness of breath, or palpitations. Patient is afebrile. No reports of nausea or vomiting and patient is tolerating diet. Recommend continue with dysphagia pured diet and monitoring closely for any further bleeding of the gums. Patient will be discharged home today. Guarded prognosis. Physical exam: Gen: This is a 50-year-old male awake, alert and oriented 3, well-developed, well-nourished HEENT: Head is atraumatic, normocephalic. Pupils equal, round. Sclerae is anicteric. No bleeding or dried blood noted of the oral mucosa NECK: Supple. No JVD. No lymphadenopathy. No thyromegaly. LUNGS: Clear to auscultation. No wheezes or rhonchi. No intercostal r etractions. HEART: Regular rate and rhythm. No murmur. ABDOMEN: Soft. Bowel sounds are present. No masses. No tenderness. EXTREMITIES: No pedal edema. No calf tenderness. NEUROLOGICAL: Patient is awake, alert and oriented x3. Cranial nerves 2 through 12 are grossly intact. Please refer to medication reconciliation sheet for a list of medications. The impression and plan of care has been dictated by Jennifer Mcdonnell, Nurse Practitioner as directed. Dr. Elizabeth MD I have performed a history and examination and MDM of this patient, discussed the same with the dictator, and agree with the dictator's assessment and plan as written ,documented as a scribe. Based on total visit time, I have performed more than 50% of the visit. Patient Condition at Discharge: Stable Plan - Discharge Summary Discharge Rx Participant: No New Discharge Prescriptions: Continue Venlafaxine HCl [Effexor XR] 225 mg PO DAILY Omeprazole 40 mg PO DAILY buPROPion HCL [Wellbutrin SR] 150 mg PO BID Methylphenidate HCl 20 mg PO BID Insulin NPH Hum/Reg Insulin Hm [humuLIN 70/30 Kwikpen] 20 unit SQ AC-BID Hydrocodone/Acetaminophen [[place] 7.5-325] 1 tab PO TID PRN PRN Reason: Pain amLODIPine [Norvasc] 10 mg PO DAILY tab lisinopriL [Zestril] 10 mg PO DAILY tab Rosuvastatin [Crestor] 20 mg PO HS Pioglitazone [Actos] 15 mg PO DAILY Loratadine [Claritin] 10 mg PO DAILY PRN PRN Reason: Allergy Symptoms Midodrine HCl [ProAmatine] 10 mg PO TID hydrALAZINE HCL [Apresoline] 25 mg PO TID-W/MEALS Gabapentin [Neurontin] 400 mg PO TID Dapagliflozin Propanediol [Farxiga] 10 mg PO DAILY Brimonidine Tartrate [Alphagan P 0.2% Ophth Soln] 1 drop RIGHT EYE TID Benztropine Mesylate [Cogentin] 1 mg PO BID Discontinued Apixaban [Eliquis] 5 mg PO BID Discharge Medication List Omeprazole 40 mg PO DAILY 03/27/20 [History] Venlafaxine HCl [Effexor XR] 225 mg PO DAILY 03/27/20 [History] buPROPion HCL [Wellbutrin SR] 150 mg PO BID 03/27/20 [History] Insulin NPH Hum/Reg Insulin Hm [humuLIN 70/30 Kwikpen] 20 unit SQ AC-BID 06/29/20 [History] Methylphenidate HCl 20 mg PO BID 06/29/20 [History] Hydrocodone/Acetaminophen [[place] 7.5-325] 1 tab PO TID PRN 06/30/20 [History] amLODIPine [Norvasc] 10 mg PO DAILY tab 07/03/20 [Rx] lisinopriL [Zestril] 10 mg PO DAILY tab 07/03/20 [Rx] Benztropine Mesylate [Cogentin] 1 mg PO BID 09/25/21 [History] Brimonidine Tartrate [Alphagan P 0.2% Ophth Soln] 1 drop RIGHT EYE TID 09/25/21 [History] Dapagliflozin Propanediol [Farxiga] 10 mg PO DAILY 09/25/21 [History] Gabapentin [Neurontin] 400 mg PO TID 09/25/21 [History] Loratadine [Claritin] 10 mg PO DAILY PRN 09/25/21 [History] Midodrine HCl [ProAmatine] 10 mg PO TID 09/25/21 [History] Pioglitazone [Actos] 15 mg PO DAILY 09/25/21 [History] Rosuvastatin [Crestor] 20 mg PO HS 09/25/21 [History] hydrALAZINE HCL [Apresoline] 25 mg PO TID-W/MEALS 09/25/21 [History] Follow up Appointment(s)/Referral(s): [facility], [NON-STAFF] - 1-2 Days Justine Guillen MD [Primary Care Provider] - 1-2 days Ambulatory/Diagnostic Orders: Complete Blood Count w/diff [LAB.AMB] Time Frame: 3 Days, Location: None Selected Activity/Diet/Wound Care/Special Instructions: Activity is limited until follow-up Follow-up with dental in the outpatient setting Follow-up with primary care on discharge Continue home care Continue with dysphasia 1 pured diet and soft foods Continue to monitor Accu-Cheks before meals and at bedtime Discussed with primary care provider and also dental about resuming eliquis Discharge Disposition: HOME WITH HOME HEALTH SERVICES
== END 2021-11-27 15:13 | disposition home health service (06) | DRG 920 ==
LOC: EC 09:59 → 6NMEDSUR 11:35 → OBSVTOIN 11-23 13:52
PROVIDERS: ADMIT Internal Medicine; ATTEND Internal Medicine
DX: L76.22 Postprocedural hemorrhage of skin and subcutaneous tissue following other procedure (principal); D62 Acute posthemorrhagic anemia; I69.354 Hemiplegia and hemiparesis following cerebral infarction affecting left non-dominant side; I95.9 Hypotension, unspecified; K06.8 Other specified disorders of gingiva and edentulous alveolar ridge; E03.9 Hypothyroidism, unspecified; Z98.818 Other dental procedure status; F31.9 Bipolar disorder, unspecified; F41.9 Anxiety disorder, unspecified; K21.9 Gastro-esophageal reflux disease without esophagitis; I12.9 Hypertensive chronic kidney disease with stage 1 through stage 4 chronic kidney disease, or unspecified chronic kidney disease; G24.01 Drug induced subacute dyskinesia; G47.33 Obstructive sleep apnea (adult) (pediatric); N18.30 Chronic kidney disease, stage 3 unspecified; H40.9 Unspecified glaucoma; E11.22 Type 2 diabetes mellitus with diabetic chronic kidney disease; E11.40 Type 2 diabetes mellitus with diabetic neuropathy, unspecified; Z79.4 Long term (current) use of insulin; E11.43 Type 2 diabetes mellitus with diabetic autonomic (poly)neuropathy; K31.84 Gastroparesis; N40.0 Benign prostatic hyperplasia without lower urinary tract symptoms; Z79.01 Long term (current) use of anticoagulants; Z79.84 Long term (current) use of oral hypoglycemic drugs; Z79.899 Other long term (current) drug therapy; Z83.3 Family history of diabetes mellitus; Z86.14 Personal history of Methicillin resistant Staphylococcus aureus infection
CPT/HCPCS: 36415; 80048; 80053; 85025; 85027; 85610; 85730; 86850; 86900; 86901; 86920; 93005; 99285

== ENCOUNTER 2022-01-04 08:23 | Inpatient (IN) | payer OTHER ==
[2022-01-04] MEDS ORDERED: SODIUM CHLORIDE 0.9% 1,000 ML IV STA ×2 (08:48→11:17)
[2022-01-04] MEDS ORDERED: ONDANSETRON 4 MG/2 ML VIAL IVP STA (08:48)
[2022-01-04] MEDS ORDERED: diphenhydrAMINE 50 MG/ML 1 ML VIAL IVP STA (08:49)
[2022-01-04] MEDS ORDERED: PANTOPRAZOLE 40 MG/10 ML VIAL IVP STA (08:49)
[2022-01-04] MEDS ORDERED: MECLIZINE 12.5 MG TAB PO STA (08:49)
--- NOTE | 2022-01-04 09:07 | ED ---
General Adult HPI - General Chief complaint: Weakness Stated complaint: Fall Time Seen by Provider: 01/04/22 08:48 Source: patient, EMS, RN notes reviewed, old records reviewed Mode of arrival: EMS Limitations: no limitations - History of Present Illness Initial comments: Patient is a 51-year-old male with past medical history remarkable for prior stroke with residual left-sided paralysis on eliquis, chronic severe vertigo, diabetes, hypertension presents emergency Department over concern for recurrent episodes of nausea, vomiting, vertigo symptoms, as well as falls at home. Does have a history of falls. States he feels like the room is spinning, which resulted in multiple episodes since last night of emesis which was yellow in color. He is covered in yellow emesis at this time throughout all over himself. States this is related to the room spinning sensation. Denies chest pain, shortness breath, abdominal pain. States he did have a Rosado catheter placed recently, and since that time has been having bilateral testicular discomfort an d pain. Believes it has been in for at least a week. Denies any hematemesis. Denies any hematochezia or melena. No diarrhea. Believes he may have some mild hematuria. Does have a history of anemia requiring transfusions. Denies headache. Denies any new motor or sensory deficits. Presents for further evaluation at this time. Patient was mildly hypotensive upon arrival which resolved with minimal fluids.Patient states he has fallen twice over the last day as well. Denies hitting his head or experiencing loss of consciousness. - Related Data Home Medications Medication Instructions Recorded Confirmed Omeprazole 40 mg PO DAILY 03/27/20 01/04/22 Venlafaxine HCl [Effexor XR] 225 mg PO DAILY 03/27/20 01/04/22 buPROPion HCL [Wellbutrin SR] 150 mg PO BID 03/27/20 01/04/22 Insulin NPH Hum/Reg Insulin Hm 20 unit SQ BID 06/29/20 01/04/22 [humuLIN 70/30 Kwikpen] Methylphenidate HCl 20 mg PO BID 06/29/20 01/04/22 Hydrocodone/Acetaminophen [[place] 1 tab PO TID PRN 06/30/20 01/04/22 7.5-325] Benztropine Mesylate [Cogentin] 1.5 mg PO TID 09/25/21 01/04/22 Dapagliflozin Propanediol [Farxiga] 10 mg PO DAILY 09/25/21 01/04/22 Gabapentin [Neurontin] 400 mg PO TID 09/25/21 01/04/22 Midodrine HCl [ProAmatine] 10 mg PO TID 09/25/21 01/04/22 Pioglitazone [Actos] 15 mg PO DAILY 09/25/21 01/04/22 Rosuvastatin [Crestor] 20 mg PO HS 09/25/21 01/04/22 Apixaban [Eliquis] 5 mg PO BID 01/04/22 01/04/22 Dulaglutide [Trulicity] 1.5 mg SQ Q7D 01/04/22 01/04/22 Ferrlecit 62.5mg/5ml 125 mg IV DIRECTED 01/04/22 01/04/22 Pilocarpine [Salagen] 5 mg PO TID 01/04/22 01/04/22 Tamsulosin HCl [Flomax] 0.4 mg PO DAILY 01/04/22 01/04/22 hydrALAZINE HCL [Apresoline] 50 mg PO BID 01/04/22 01/04/22 polyethylene glycoL 3350 [Miralax] 17 gm PO DAILY 01/04/22 01/04/22 Allergies Allergy/AdvReac Type Severity Reaction Status Date / Time lactose AdvReac Nausea & Verified 01/04/22 10:05 Vomiting & Diarrhea Review of Systems ROS Statement: Those systems with pertinent positive or pertinent negative responses have been documented in the HPI. Review of Systems: CONST: Denies fever EYES: Denies blurry vision ENT: Denies nasal congestion C/V: Denies Chest pain RESP: Denies shortness of breath GI: Denies abdominal pain : Denies dysuria SKIN: Denies rash. MSK: Denies joint pain. NEURO: Endorses urine spinning sensation ROS Other: All systems not noted in ROS Statement are negative. Past Medical History Past Medical History: CVA/TIA, Diabetes Mellitus, Eye Disorder, GERD/Reflux, Hypertension, Musculoskeletal Disorder, Prostate Disorder, Renal Disease, Sleep Apnea/CPAP/BIPAP, Thyroid Disorder Additional Past Medical History / Comment(s): CVA in 2019 and 2020/L arm paralysis and L leg weakness/walks short distances with walker, IDDM type II, neuropathy bilateral legs/feet, gastroparesis, autonomic dysfunction, CKD stage III, BPH, hypotension at times, vertigo when first stands, ELISSA/does not wear his cpap, hypothyroid, bilateral glaucoma/retinal problems History of Any Multi-Drug Resistant Organisms: MRSA Date of last positivie culture/infection: 04/22/16 MDRO Source:: Right Hand Past Surgical History: Orthopedic Surgery Additional Past Surgical History / Comment(s): Recent 6 teeth extracted, PETRA, bilateral eye retinal scraping, bilateral eye cataract removals, colonoscopies Past Anesthesia/Blood Transfusion Reactions: No Reported Reaction Past Psychological History: Anxiety, Bipolar, Depression Smoking Status: Never smoker Past Alcohol Use History: None Reported Past Drug Use History: None Reported - Past Family History Mother Family Medical History: Diabetes Mellitus, Renal Disease Additional Family Medical History / Comment(s): Mother is alive at age 61 with history of diabetes (wears insulin pump). Brother(s) Additional Family Medical History / Comment(s): Patient has 2 brothers and one has history of diabetes and one has no major medical problems. General Exam - General Exam Comments Initial Comments: General: Appears in mild distress. HEAD: Normal with no signs of head trauma. EYES: PERRLA, EOMI, conjunctiva normal, no discharge. Pupils are 3 mm and equal bilaterally. ENT: Hearing grossly intact, normal oropharynx. Dry mucous membranes. RESPIRATORY: Clear breath sounds bilaterally. No wheezes, rales, or rhonchi. No respiratory distress. Mild hypoxia on room air to 91%. C/V: Regular rate and rhythm. S1 and S2 auscultated, no edema, peripheral pulses 2+ and intact throughout ABD: Abd is soft, nontender, nondistended : Penis and testicles are unremarkable. No obvious lesions or skin changes. Scrotum is soft. Some relief in pain with lifting of both testicles. Relatively unremarkable exam. Rosado is in place. EXT: Normal range of motion, no obvious deformity SKIN: No rashes or lesions observed on exposed skin. Covered in yellow emesis. NEURO: Alert and oriented 4. At his normal baseline with left-sided paralysis. No focal deficits. GCS of 15. Limitations: no limitations Course Vital Signs 01/04/22 01/04/22 01/04/22 08:26 08:43 09:13 Temperature 98.5 F Pulse Rate 93 89 Respiratory 18 18 18 Rate Blood Pressure 76/58 123/93 132/86 O2 Sat by Pulse 90 L 91 L 91 L Oximetry 01/04/22 10:08 Temperature Pulse Rate 84 Respiratory 18 Rate Blood Pressure 140/81 O2 Sat by Pulse 98 Oximetry Medical Decision Making - Medical Decision Making Based on the patient's presentation and physical exam, he presents mildly hypotensive following multiple episodes of nausea, vomiting as well as his chronic vertiginous symptoms. Patient is on blood thinners and fell multiple times. Would like to obtain CT head. Does have a history of anemia as well and we'll obtain broad workup including stool occult blood. He'll be immediately started on 2 L IV fluids. 2 large bore IVs will be obtained. Patient's blood pressure did respond to minimal fluid administration. Pressure is now 123/93. Patient was in agreement with this plan. He will be given meclizine and Zofran for symptomatic treatment. Anemia as a possibility, however patient has no obvious source of bleeding at this time. EKG showed no signs of acute ischemia. Chest x-ray showed no acute cardiopulmonary process. CT brain showed no acute intracranial process. Scrotal ultrasound revealed no signs of torsion. Good arterial flow to bilateral testes. Laboratory studies remarkable for a leukocytosis of 14.8, chronic no sick anemia with a hemoglobin of 7.7. Patient is hyperkalemic to 5.5 however there is hemolysis. We will repeat. Has a history of CK D appears to be at his baseline of feeling a 61 creatinine of 2.3. Is receiving IV fluid hydration at this time. Troponin is elevated to 0.148. Urinalysis is concerning for UTI. Occult blood is negative. Acetone is negative. Covid is negative. I updated the patient. He is asymptomatic at this time. Following meclizine, vertigo those symptoms have resolved. I did discuss with him that I believe he is dehydrated and would like to admit him for further evaluation. We discussed the elevated troponin, I do have lower concern for ACS at this time as patient's EKG is unremarkable, there is no chest pain. He is likely secondary to dehydration at this time however I will empirically start the patient on IV heparin and we will trend the troponin. Cardiology will be consulted. He was in agreement this plan. Patient has not had chest pain at any point at home or here in the department. Vital signs remained within normal limits. The patient's PCP is Dr. Guillen, who is being covered by [facility]. I spoke with Dr. Beach who accepted the admission. - Lab Data Result diagrams: 01/04/22 08:54 01/04/22 08:54 Lab Results 01/04/22 01/04/22 01/04/22 Range/Units 08:54 08:54 08:54 WBC 14.8 H (3.8-10.6) k/uL RBC 2.77 L (4.30-5.90) m/uL Hgb 7.7 L (13.0-17.5) gm/dL Hct 23.9 L (39.0-53.0) % MCV 86.4 (80.0-100.0) fL MCH 27.7 (25.0-35.0) pg MCHC 32.1 (31.0-37.0) g/dL RDW 13.8 (11.5-15.5) % Plt Count 241 (150-450) k/uL MPV 7.1 Neutrophils % 85 % Lymphocytes % 7 % Monocytes % 7 % Eosinophils % 1 % Basophils % 0 % Neutrophils # 12.5 H (1.3-7.7) k/uL Lymphocytes # 1.0 (1.0-4.8) k/uL Monocytes # 1.1 H (0-1.0) k/uL Eosinophils # 0.1 (0-0.7) k/uL Basophils # 0.0 (0-0.2) k/uL PT 11.5 (9.0-12.0) sec INR 1.1 (<1.2) APTT 31.2 H (22.0-30.0) sec Sodium 135 L (137-145) mmol/L Potassium 5.5 H (3.5-5.1) mmol/L Chloride 101 (98-107) mmol/L Carbon Dioxide 22 (22-30) mmol/L Anion Gap 12 mmol/L BUN 61 H (9-20) mg/dL Creatinine 2.83 H (0.66-1.25) mg/dL Est GFR (CKD-EPI)AfAm 29 (>60 ml/min/1.73 sqM) Est GFR (CKD-EPI)NonAf 25 (>60 ml/min/1.73 sqM) Glucose 90 (74-99) mg/dL Plasma Lactic Acid Andrea (0.7-2.0) mmol/L Calcium 8.3 L (8.4-10.2) mg/dL Magnesium 1.8 (1.6-2.3) mg/dL Total Bilirubin 0.5 (0.2-1.3) mg/dL AST 28 (17-59) U/L ALT 15 (4-49) U/L Alkaline Phosphatase 67 (38-126) U/L Troponin I (0.000-0.034) ng/mL Total Protein 5.8 L (6.3-8.2) g/dL Albumin 3.4 L (3.5-5.0) g/dL Urine Color Urine Appearance (Clear) Urine pH (5.0-8.0) Ur Specific [place] (1.001-1.035) Urine Protein (Negative) Urine Glucose (UA) (Negative) Urine Ketones (Negative) Urine Blood (Negative) Urine Nitrite (Negative) Urine Bilirubin (Negative) Urine Urobilinogen (<2.0) mg/dL Ur Leukocyte Esterase (Negative) Urine RBC (0-5) /hpf Urine WBC (0-5) /hpf Urine WBC Clumps (None) /hpf Amorphous Sediment (None) /hpf Urine Bacteria (None) /hpf Urine Mucus (None) /hpf Stool Occult Blood (Negative) Acetone, Qual Negative (Negative) Coronavirus (PCR) (Not Detectd) Blood Type Blood Type Recheck Bld Type Recheck Status Antibody Screen Spec Expiration Date 01/04/22 01/04/22 01/04/22 Range/Units 08:54 08:54 08:54 WBC (3.8-10.6) k/uL RBC (4.30-5.90) m/uL Hgb (13.0-17.5) gm/dL Hct (39.0-53.0) % MCV (80.0-100.0) fL MCH (25.0-35.0) pg MCHC (31.0-37.0) g/dL RDW (11.5-15.5) % Plt Count (150-450) k/uL MPV Neutrophils % % Lymphocytes % % Monocytes % % Eosinophils % % Basophils % % Neutrophils # (1.3-7.7) k/uL Lymphocytes # (1.0-4.8) k/uL Monocytes # (0-1.0) k/uL Eosinophils # (0-0.7) k/uL Basophils # (0-0.2) k/uL PT (9.0-12.0) sec INR (<1.2) APTT (22.0-30.0) sec Sodium (137-145) mmol/L Potassium (3.5-5.1) mmol/L Chloride (98-107) mmol/L Carbon Dioxide (22-30) mmol/L Anion Gap mmol/L BUN (9-20) mg/dL Creatinine (0.66-1.25) mg/dL Est GFR (CKD-EPI)AfAm (>60 ml/min/1.73 sqM) Est GFR (CKD-EPI)NonAf (>60 ml/min/1.73 sqM) Glucose (74-99) mg/dL Plasma Lactic Acid Andrea 1.1 (0.7-2.0) mmol/L Calcium (8.4-10.2) mg/dL Magnesium (1.6-2.3) mg/dL Total Bilirubin (0.2-1.3) mg/dL AST (17-59) U/L ALT (4-49) U/L Alkaline Phosphatase (38-126) U/L Troponin I 0.148 H* (0.000-0.034) ng/mL Total Protein (6.3-8.2) g/dL Albumin (3.5-5.0) g/dL Urine Color Urine Appearance (Clear) Urine pH (5.0-8.0) Ur Specific [place] (1.001-1.035) Urine Protein (Negative) Urine Glucose (UA) (Negative) Urine Ketones (Negative) Urine Blood (Negative) Urine Nitrite (Negative) Urine Bilirubin (Negative) Urine Urobilinogen (<2.0) mg/dL Ur Leukocyte Esterase (Negative) Urine RBC (0-5) /hpf Urine WBC (0-5) /hpf Urine WBC Clumps (None) /hpf Amorphous Sediment (None) /hpf Urine Bacteria (None) /hpf Urine Mucus (None) /hpf Stool Occult Blood (Negative) Acetone, Qual (Negative) Coronavirus (PCR) (Not Detectd) Blood Type O Positive Blood Type Recheck O Pos Bld Type Recheck Status No Antibody Screen NEGATIVE Spec Expiration Date 01/07/2022235301/04/22 01/04/22 01/04/22 Range/Units 08:55 09:12 09:55 WBC (3.8-10.6) k/uL RBC (4.30-5.90) m/uL Hgb (13.0-17.5) gm/dL Hct (39.0-53.0) % MCV (80.0-100.0) fL MCH (25.0-35.0) pg MCHC (31.0-37.0) g/dL RDW (11.5-15.5) % Plt Count (150-450) k/uL MPV Neutrophils % % Lymphocytes % % Monocytes % % Eosinophils % % Basophils % % Neutrophils # (1.3-7.7) k/uL Lymphocytes # (1.0-4.8) k/uL Monocytes # (0-1.0) k/uL Eosinophils # (0-0.7) k/uL Basophils # (0-0.2) k/uL PT (9.0-12.0) sec INR (<1.2) APTT (22.0-30.0) sec Sodium (137-145) mmol/L Potassium (3.5-5.1) mmol/L Chloride (98-107) mmol/L Carbon Dioxide (22-30) mmol/L Anion Gap mmol/L BUN (9-20) mg/dL Creatinine (0.66-1.25) mg/dL Est GFR (CKD-EPI)AfAm (>60 ml/min/1.73 sqM) Est GFR (CKD-EPI)NonAf (>60 ml/min/1.73 sqM) Glucose (74-99) mg/dL Plasma Lactic Acid Andrea (0.7-2.0) mmol/L Calcium (8.4-10.2) mg/dL Magnesium (1.6-2.3) mg/dL Total Bilirubin (0.2-1.3) mg/dL AST (17-59) U/L ALT (4-49) U/L Alkaline Phosphatase (38-126) U/L Troponin I (0.000-0.034) ng/mL Total Protein (6.3-8.2) g/dL Albumin (3.5-5.0) g/dL Urine Color Dark Brown Urine Appearance Turbid (Clear) Urine pH 5.5 (5.0-8.0) Ur Specific [place] 1.014 (1.001-1.035) Urine Protein 2+ H (Negative) Urine Glucose (UA) 3+ H (Negative) Urine Ketones Negative (Negative) Urine Blood Large H (Negative) Urine Nitrite Positive (Negative) Urine Bilirubin 1+ H (Negative) Urine Urobilinogen <2.0 (<2.0) mg/dL Ur Leukocyte Esterase Large H (Negative) Urine RBC 174 H (0-5) /hpf Urine WBC >182 H (0-5) /hpf Urine WBC Clumps Many H (None) /hpf Amorphous Sediment Few H (None) /hpf Urine Bacteria Many H (None) /hpf Urine Mucus Rare H (None) /hpf Stool Occult Blood Negative (Negative) Acetone, Qual (Negative) Coronavirus (PCR) Not Detected (Not Detectd) Blood Type Blood Type Recheck Bld Type Recheck Status Antibody Screen Spec Expiration Date - EKG Data -: EKG Interpreted by Me EKG Comments: 12-lead Electrocardiogram Interpretation Note EKG was reviewed and interpreted by myself. 12-lead ECG performed at 0910 is interpreted by me as revealing normal sinus rhythm at a rate of 89 beats per minute. [place] is normal. NE Intervals 144 ms, QRS duration is 86 ms, QTc is 395 ms.. There were no ST or T wave abnormalities to suggest myocardial ischemia or injury. R wave progression across the precordium was satisfactory. By my interpretation this EKG is non-diagnostic for acute ischemia. Disposition Clinical Impression: UTI (urinary tract infection), Nausea & vomiting, Dehydration, Elevated troponin Disposition: ADMITTED IP TO THIS HOSP Condition: Stable Referrals: Justine Guillen MD [Primary Care Provider] - 1-2 days Time of Disposition: 11:00
[2022-01-04 09:16] LABS: Basophils % (A) 0 %; Eosinophils # (A) 0.1 k/uL (0-0.7); Eosinophils % (A) 1 %; HCT 23.9 % (39.0-53.0); HGB 7.7 gm/dL (13.0-17.5); Lymphocytes % (A) 7 %; MCH 27.7 pg (25.0-35.0); MCHC 32.1 g/dL (31.0-37.0); MCV 86.4 fL (80.0-100.0); Mean Platelet Volume 7.1; Monocytes # (A) 1.1 k/uL (0-1.0); Monocytes % (A) 7 %; Neutrophils # (A) 12.5 k/uL (1.3-7.7); Neutrophils % (A) 85 %; Platelet Count 241 k/uL (150-450); RBC 2.77 m/uL (4.30-5.90); RDW 13.8 % (11.5-15.5); WBC 14.8 k/uL (3.8-10.6)
[2022-01-04 09:38] LABS: INR 1.1 (<1.2); Partial Thromboplastin Time 31.2 sec (22.0-30.0); Prothrombin Time 11.5 sec (9.0-12.0)
[2022-01-04 09:48] LABS: ALT 15 U/L (4-49); African American GFR (CKD) 29 (>60 ml/min/1.73 sqM); Albumin 3.4 g/dL (3.5-5.0); Anion Gap 12 mmol/L; Blood Urea Nitrogen 61 mg/dL (9-20); Calcium 8.3 mg/dL (8.4-10.2); Carbon Dioxide 22 mmol/L (22-30); Chloride 101 mmol/L (98-107); Glucose 90 mg/dL (74-99); Non-African American GFR(CKD) 25 (>60 ml/min/1.73 sqM); Sodium 135 mmol/L (137-145); Total Bilirubin 0.5 mg/dL (0.2-1.3); Total Protein 5.8 g/dL (6.3-8.2)
[2022-01-04 09:55] LABS: AST 28 U/L (17-59); Alkaline Phosphatase 67 U/L (38-126); Magnesium 1.8 mg/dL (1.6-2.3); Potassium 5.5 mmol/L (3.5-5.1)
--- NOTE | 2022-01-04 10:07 | CT ---
EXAMINATION TYPE: CT brain wo con DATE OF EXAM: 01/04/2022 COMPARISON: 10/10/2021 HISTORY: weakness, ams CT DLP: 1094.[address] of the brain was performed. The ventricles, basal cisterns and sulci overlying the cerebral convexities demonstrate mild enlargem ent. There is no evidence for intracranial hemorrhage or sulcal effacement. There is decreased attenuation about the periventricular white matter and deep white matter of both c erebral hemispheres, compatible with chronic small vessel ischemia. Differential diagnosis does inclu de demyelination. No mass effects are seen.No midline shift. Osseous calvarium is intact. If symptoms persist consider MRI. IMPRESSION: 1. Age related atrophic and chronic small vessel ischemic change without acute intracranial process s een at this time.
--- NOTE | 2022-01-04 10:11 | XR ---
EXAMINATION TYPE: XR chest 2V DATE OF EXAM: 01/04/2022 COMPARISON: 10/10/2021 HISTORY: Shortness of breath TECHNIQUE: Frontal and lateral views of the chest are obtained. FINDINGS: Scattered senescent parenchymal changes noted. No evidence for infiltrate. No evidence for atelectasis. Heart size is stable. Mediastinal structures are stable and grossly unremarkable. No evidence for hilar prominence. Degenerative changes dorsal spine. IMPRESSION: 1. No evidence for acute pulmonary disease.
[2022-01-04 10:50] LABS: Amorphous Sediment,Urine Few /hpf; Appearance,Urine Turbid (Clear); Bacteria,Urine Many /hpf; Bilirubin,Urine 1+ (Negative); Blood,Urine Large (Negative); Color,Urine Dark Brown; Glucose,Urine (UA) 3+ (Negative); Ketones,Urine Negative (Negative); Leukocyte Esterase,Urine Large (Negative); Mucus,Urine Rare /hpf; Nitrite,Urine Positive (Negative); PH, Urine 5.5 (5.0-8.0); Protein,Urine 2+ (Negative); RBC,Urine 174 /hpf (0-5); Specific Gravity,Urine 1.014 (1.001-1.035); Urobilinogen,Urine <2.0 mg/dL (<2.0); WBC,Urine >182 /hpf (0-5)
--- NOTE | 2022-01-04 11:09 | US ---
EXAMINATION TYPE: US scrotum with doppler. Grayscale and color Doppler Duplex imaging performed of katina lockwood scrotum. DATE OF EXAM: 01/04/2022 COMPARISON: NONE CLINICAL HISTORY: bilateral testicular pain. EXAM MEASUREMENTS: TESTICLES: Right Testicle: 5.3 x 2.3 x 3.2 cm Left Testicle: 4.9 x 2.3 x 2.7 cm EPIDIDYMIS HEAD: Right Epididymis: 1.8 cm Left Epididymis: 1.1 cm Doppler performed to assess for testicular vascularity; good bilateral arterial color flow and wavefo livia are seen. Unable to obtain venous flow within bilateral testicles. Presence of hydroceles: no Presence of varicoceles: no Arterial flow between the bilateral testicles appears symmetrical. IMPRESSION: 1. Arterial flow is present within the bilateral testicles. However, good documentation of venous damien w was not identified.
[2022-01-04] MEDS ORDERED: HEPARIN SODIUM 1,000 UN/ML (10ML VL) IV PRN (11:11)
[2022-01-04] MEDS ORDERED: HEPARIN SODIUM 1,000 UN/ML (10ML VL) IV ONE (11:11)
[2022-01-04] MEDS ORDERED: ASPIRIN 81 MG PO STA (11:14)
[2022-01-04] MEDS ORDERED: HEPARIN SOD,PORK IN 0.45% NACL 25,000 UNIT in 0.45% NACL 1 250ML.BAG IV SCH (11:15)
[2022-01-04] MEDS ORDERED: NALOXONE 0.4 MG/ML 1 ML VIAL IV PRN (12:14)
[2022-01-04] MEDS ORDERED: ONDANSETRON 4 MG/2 ML VIAL IVP PRN (12:14)
[2022-01-04] MEDS ORDERED: [UNRECOGNIZED DRUG - OTHER] IV SCH (12:30)
[2022-01-04 13:06] LABS: Appearance,Urine Clear (Clear); Bacteria,Urine Many /hpf; Bilirubin,Urine Negative (Negative); Blood,Urine Small (Negative); Color,Urine Light Brown; Glucose,Urine (UA) 3+ (Negative); Ketones,Urine Negative (Negative); Leukocyte Esterase,Urine Small (Negative); Nitrite,Urine Negative (Negative); Protein,Urine 1+ (Negative); RBC,Urine 2 /hpf (0-5); Specific Gravity,Urine 1.005 (1.001-1.035); Squamous Epithelial Cell,Urine <1 /hpf (0-4); Urobilinogen,Urine <2.0 mg/dL (<2.0); WBC,Urine 10 /hpf (0-5)
[2022-01-04] MEDS ORDERED: GABAPENTIN 400 MG CAP PO SCH (16:00)
[2022-01-04] MEDS: BENZTROPINE MESYLATE 0.5 MG TAB PO SCH ×2 (16:16→20:45)
[2022-01-04] MEDS: MIDODRINE 5 MG TAB PO SCH ×2 (16:17→23:13)
[2022-01-04] MEDS: PILOCARPINE 5 MG TAB PO SCH ×2 (16:17→20:45)
[2022-01-04] MEDS: INSULN ASP PRT/INSULIN ASPART 100 UNIT/ML 10 ML VIAL SQ SCH (17:02)
[2022-01-04 17:03] LABS: Glucose,Whole Blood 87 mg/dL (70-110)
[2022-01-04] MEDS: METHYLPHENIDATE HCL 10 MG TAB PO SCH (17:04)
[2022-01-04] MEDS: HYDROcodone/APAP 7.5-325MG 1 EACH TAB PO PRN (17:04)
--- NOTE | 2022-01-04 17:23 | P.HPIM ---
History of Present Illness H&P Date: 01/04/22 Chief Complaint: Weakness/fall 51-year-old male with past medical history remarkable for prior stroke with residual left-sided paralysis on eliquis, chronic severe vertigo, diabetes, hypertension presents emergency Department over concern for recurrent episodes of nausea, vomiting, vertigo symptoms, as well as falls at home. Does have a history of falls. States he feels like the room is spinning, which resulted in multiple episodes since last night of emesis which was yellow in color. He is covered in yellow emesis at this time throughout all over himself. States this is related to the room spinning sensation. Denies chest pain, shortness breath, abdominal pain. States he did have a Rosado catheter placed recently, and since that time has been having bilateral testicular discomfort and pain. Believes it has been in for at least a week. Denies any hematemesis. Denies any hematochezia or melena. No diarrhea. Believes he may have some mild hematuria. Does have a history of anemia requiring transfusions. Denies headache. Denies any new motor or sensory deficits. Presents for further evaluation at this time. Patient was mildly hypotensive upon arrival which resolved with minimal fluids.Patient states he has fallen twice over the last day as well. Denies hitting his head or experiencing loss of consciousness. EKG showed no signs of acute ischemia. Chest x-ray showed no acute cardiopulmonary process. CT brain showed no acute intracranial process. Scrotal ultrasound revealed no signs of torsion. Good arterial flow to bilateral testes. Laboratory studies remarkable for a leukocytosis of 14.8, hemoglobin of 7.7. Patient is hyperkalemic to 5.5, BUN/creatinine 61/2.3. Is receiving IV fluid hydration at this time. Troponin is elevated to 0.148. Urinalysis is concerning for UTI. Occult blood is negative. Acetone is negative. Covid is negative. Review of Systems REVIEW OF SYSTEMS: CONSTITUTIONAL: No fever, no malaise, no fatigue. HEENT: No recent visual problems or hearing problems. Denied any sore throat. CARDIOVASCULAR: No chest pain, orthopnea, PND, no palpitations, no syncope. PULMONARY: No shortness of breath, no cough, no hemoptysis. GASTROINTESTINAL: No diarrhea, no nausea, no vomiting, no abdominal pain. NEUROLOGICAL: No headaches, no weakness, no numbness. HEMATOLOGICAL: Denies any bleeding or petechiae. GENITOURINARY: Denies any burning micturition, frequency, or urgency. MUSCULOSKELETAL/RHEUMATOLOGICAL: Denies any joint pain, swelling, or any muscle pain. ENDOCRINE: Denies any polyuria or polydipsia. The rest of the 14-point review of systems is negative. 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/walks short distances with walker, IDDM type II, neuropathy bilateral legs/feet, gastroparesis, autonomic dysfunction, CKD stage III, BPH, hypotension at times, vertigo when first stands, ELISSA/does not wear his cpap, hypothyroid, bilateral glaucoma/retinal problems History of Any Multi-Drug Resistant Organisms: MRSA Date of last positivie culture/infection: 04/22/16 MDRO Source:: Right Hand Past Surgical History: Orthopedic Surgery Additional Past Surgical History / Comment(s): Recent 6 teeth extracted, PETRA, bilateral eye retinal scraping, bilateral eye cataract removals, colonoscopies Past Anesthesia/Blood Transfusion Reactions: No Reported Reaction Past Psychological History: Anxiety, Bipolar, Depression Smoking Status: Never smoker Past Alcohol Use History: None Reported Past Drug Use History: None Reported - Past Family History Mother Family Medical History: Diabetes Mellitus, Renal Disease Additional Family Medical History / Comment(s): Mother is alive at age 61 with history of diabetes (wears insulin pump). Brother(s) Additional Family Medical History / Comment(s): Patient has 2 brothers and one has history of diabetes and one has no major medical problems. Medications and Allergies Home Medications Medication Instructions Recorded Confirmed Type Omeprazole 40 mg PO DAILY 03/27/20 01/04/22 History Venlafaxine HCl [Effexor XR] 225 mg PO DAILY 03/27/20 01/04/22 History buPROPion HCL [Wellbutrin SR] 150 mg PO BID 03/27/20 01/04/22 History Insulin NPH Hum/Reg Insulin Hm 20 unit SQ BID 06/29/20 01/04/22 History [humuLIN 70/30 Kwikpen] Methylphenidate HCl 20 mg PO BID 06/29/20 01/04/22 History Hydrocodone/Acetaminophen [[place] 1 tab PO TID PRN 06/30/20 01/04/22 History 7.5-325] Benztropine Mesylate [Cogentin] 1.5 mg PO TID 09/25/21 01/04/22 History Dapagliflozin Propanediol [Farxiga] 10 mg PO DAILY 09/25/21 01/04/22 History Gabapentin [Neurontin] 400 mg PO TID 09/25/21 01/04/22 History Midodrine HCl [ProAmatine] 10 mg PO TID 09/25/21 01/04/22 History Pioglitazone [Actos] 15 mg PO DAILY 09/25/21 01/04/22 History Rosuvastatin [Crestor] 20 mg PO HS 09/25/21 01/04/22 History Apixaban [Eliquis] 5 mg PO BID 01/04/22 01/04/22 History Dulaglutide [Trulicity] 1.5 mg SQ Q7D 01/04/22 01/04/22 History Ferrlecit 62.5mg/5ml 125 mg IV DIRECTED 01/04/22 01/04/22 History Pilocarpine [Salagen] 5 mg PO TID 01/04/22 01/04/22 History Tamsulosin HCl [Flomax] 0.4 mg PO DAILY 01/04/22 01/04/22 History hydrALAZINE HCL [Apresoline] 50 mg PO BID 01/04/22 01/04/22 History polyethylene glycoL 3350 [Miralax] 17 gm PO DAILY 01/04/22 01/04/22 History Allergies Allergy/AdvReac Type Severity Reaction Status Date / Time lactose AdvReac Nausea & Verified 01/04/22 10:05 Vomiting & Diarrhea Physical Exam Vitals: Vital Signs Temp Pulse Resp BP Pulse Ox 01/04/22 14:43 84 18 154/83 92 L 01/04/22 13:29 84 18 151/85 95 01/04/22 12:25 89 18 149/80 98 01/04/22 10:08 84 18 140/81 98 01/04/22 09:13 89 18 132/86 91 L 01/04/22 08:43 18 123/93 91 L 01/04/22 08:26 98.5 F 93 18 76/58 90 L Intake and Output 01/04/22 01/04/22 01/04/22 06:59 14:59 22:59 Other: Weight 86.183 kg General: Appears in mild distress. HEAD: Normal with no signs of head trauma. EYES: PERRLA, EOMI, conjunctiva normal, no discharge. Pupils are 3 mm and e qual bilaterally. ENT: Hearing grossly intact, normal oropharynx. Dry mucous membranes. RESPIRATORY: Clear breath sounds bilaterally. No wheezes, rales, or rhonchi. No respiratory distress. Mild hypoxia on room air to 91%. C/V: Regular rate and rhythm. S1 and S2 auscultated, no edema, peripheral pulses 2+ and intact throughout ABD: Abd is soft, nontender, nondistended : Penis and testicles are unremarkable. No obvious lesions or skin changes. Scrotum is soft. Some relief in pain with lifting of both testicles. Relatively unremarkable exam. Rosado is in place. EXT: Normal range of motion, no obvious deformity SKIN: No rashes or lesions observed on exposed skin. Covered in yellow emesis. NEURO: Alert and oriented 4. At his normal baseline with left-sided paralysis. No focal deficits. GCS of 15. Results CBC & Chem 7: 01/04/22 08:54 01/04/22 08:54 Labs: Abnormal Lab Results - Last 24 Hours (Table) 01/04/22 01/04/22 01/04/22 Range/Units 08:54 08:54 08:54 WBC 14.8 H (3.8-10.6) k/uL RBC 2.77 L (4.30-5.90) m/uL Hgb 7.7 L (13.0-17.5) gm/dL Hct 23.9 L (39.0-53.0) % Neutrophils # 12.5 H (1.3-7.7) k/uL Monocytes # 1.1 H (0-1.0) k/uL APTT 31.2 H (22.0-30.0) sec Sodium 135 L (137-145) mmol/L Potassium 5.5 H (3.5-5.1) mmol/L BUN 61 H (9-20) mg/dL Creatinine 2.83 H (0.66-1.25) mg/dL Calcium 8.3 L (8.4-10.2) mg/dL Troponin I (0.000-0.034) ng/mL Total Protein 5.8 L (6.3-8.2) g/dL Albumin 3.4 L (3.5-5.0) g/dL Urine Protein (Negative) Urine Glucose (UA) (Negative) Urine Blood (Negative) Urine Bilirubin (Negative) Ur Leukocyte Esterase (Negative) Urine RBC (0-5) /hpf Urine WBC (0-5) /hpf Urine WBC Clumps (None) /hpf Amorphous Sediment (None) /hpf Urine Bacteria (None) /hpf Urine Mucus (None) /hpf 01/04/22 01/04/22 01/04/22 Range/Units 08:54 09:55 12:41 WBC (3.8-10.6) k/uL RBC (4.30-5.90) m/uL Hgb (13.0-17.5) gm/dL Hct (39.0-53.0) % Neutrophils # (1.3-7.7) k/uL Monocytes # (0-1.0) k/uL APTT (22.0-30.0) sec Sodium (137-145) mmol/L Potassium (3.5-5.1) mmol/L BUN (9-20) mg/dL Creatinine (0.66-1.25) mg/dL Calcium (8.4-10.2) mg/dL Troponin I 0.148 H* (0.000-0.034) ng/mL Total Protein (6.3-8.2) g/dL Albumin (3.5-5.0) g/dL Urine Protein 2+ H 1+ H (Negative) Urine Glucose (UA) 3+ H 3+ H (Negative) Urine Blood Large H Small H (Negative) Urine Bilirubin 1+ H (Negative) Ur Leukocyte Esterase Large H Small H (Negative) Urine RBC 174 H (0-5) /hpf Urine WBC >182 H 10 H (0-5) /hpf Urine WBC Clumps Many H (None) /hpf Amorphous Sediment Few H (None) /hpf Urine Bacteria Many H Many H (None) /hpf Urine Mucus Rare H (None) /hpf Assessment and Plan Assessment: 1. Elevated troponin - Patient has been placed on IV heparin from ED; we will continue per protocol; continue with aspirin, statins; recommend 2-D echo; monitor EKG and trend troponin - Cardiology is consulted for further recommendations 2. Nausea/vomiting/dehydration; patient has placed on normal saline at rate of 100 mL an hour; we will monitor strict OPAL's; symptomatic treatment for nausea and vomiting 3. UTI; Rocephin 1 g IV daily; blood culture and urine cultures obtained. Plans to make further adjustments in antibiotics once culture results are available 4. Acute on chronic kidney disease; patient has been placed on IV fluid hydration; monitor strict OPAL's, daily weights, renal function and electrolytes; avoid nephrotoxins and hypotension 5. Hyperkalemia; likely related to acute on chronic renal injury; we will monitor electrolytes closely with plans for further treatment if potassium level continues to trend up 6. Hypertension; takes hydralazine 50 mg by mouth twice a day 7. Hypothyroidism; patient is currently not on any thyroid replacement therapy 8. Diabetes mellitus type 2; continue home regimen; monitor Accu-Cheks every CHF with insulin sliding scale DVT prophylaxis; SCDs/IV heparin CODE STATUS; full code
--- NOTE | 2022-01-04 18:38 | US ---
EXAMINATION TYPE: US kidneys/renal and bladder DATE OF EXAM: 01/04/2022 COMPARISON: NONE CLINICAL HISTORY: maximilian. EXAM MEASUREMENTS: Right Kidney: 12.4 x 5.2 x 5.4 cm Left Kidney: 11.5 x 5.3 x 4.8 cm Right Kidney: lobular contour, measures large Left Kidney: somewhat limited views, inferior pole obscured by overlying bowel gas, wnl as seen Bladder: not visualized, wilkinson . IMPRESSION: No evidence of solid renal mass or obstruction. Urinary bladder empty.
[2022-01-04 20:31] LABS: Glucose,Whole Blood 128 mg/dL (70-110)
[2022-01-04] MEDS: GABAPENTIN 100 MG CAP PO SCH (20:45)
[2022-01-04] MEDS: hydrALAZINE HCL 50 MG TAB PO SCH (20:45)
[2022-01-04] MEDS: buPROPion SR 150 MG TABLET.ER PO SCH (20:45)
[2022-01-04] MEDS: ATORVASTATIN 40 MG TAB PO SCH (20:45)
[2022-01-05] MEDS: PANTOPRAZOLE 40 MG TABLET PO SCH (05:53)
[2022-01-05] MEDS: METHYLPHENIDATE HCL 10 MG TAB PO SCH ×2 (05:53→16:42)
[2022-01-05 06:01] LABS: Glucose,Whole Blood 127 mg/dL (70-110)
--- NOTE | 2022-01-05 06:13 | P.CRDCN ---
History of Present Illness Consult date: 01/05/22 Chief complaint: Generalized weakness and fatigue History of present illness: This is an unfortunate 51-year-old gentleman with a past medical history significant for stroke with residual left-sided weakness diagnosed in 2020 as well as hypertension and dyslipidemia and diabetes and chronic kidney disease presented to the hospital not feeling well. He is somewhat poor historian. He stated that he lives in an apartment with his mother. He has not been feeding well where he was experiencing symptoms of generalized weakness and fatigue ass ociated with dizziness and lightheadedness. No symptoms of chest pain or chest discomfort and no increasing in the shortness of breath. He presented to the emergency department and we consulted to see the patient because troponin was checked and came in to be slightly abnormal. Please note that the patient does have chronic kidney disease. He underwent cardiac workup including EKG showing sinus rhythm with no significant ST or T-wave abnormalities. Beside that clinically he never had any symptoms of chest pain or chest discomfort or any shortness of breath. He also underwent a workup which showed possible UTI and currently he is on antibiotic. He was seen by our service in 2020 where he underwent further investigation for the stroke including transesophageal echocardiogram which revealed no cardiac source of embolization. Also he underwent an echocardiogram which revealed normal LV function with no significant valvular abnormalities. Clinically he is stable in terms of symptom s but pressure is elevated. I'm going to restart him back on the current dose of hydralazine he was receiving at home. Also start the patient back on statin. Beside that he is on anticoagulation which was restarted already. I would consider conservative medical approach for the mildly abnormal troponin Past Medical History Past Medical History: CVA/TIA, Diabetes Mellitus, Eye Disorder, GERD/Reflux, Hypertension, Musculoskeletal Disorder, Prostate Disorder, Renal Disease, Sleep Apnea/CPAP/BIPAP, Thyroid Disorder Additional Past Medical History / Comment(s): CVA in 2019 and 2020/L arm paralysis and L leg weakness/walks short distances with walker, IDDM type II, neuropathy bilateral legs/feet, gastroparesis, autonomic dysfunction, CKD stage III, BPH, hypotension at times, vertigo when first stands, ELISSA/does not wear his cpap, hypothyroid, bilateral glaucoma/retinal problems History of Any Multi-Drug Resistant Organisms: MRSA Date of last positivie culture/infection: 04/22/16 MDRO Source:: Right Hand Past Surgical History: Orthopedic Surgery Additional Past Surgical History / Comment(s): Recent 6 teeth extracted, PETRA, bilateral eye retinal scraping, bilateral eye cataract removals, colonoscopies Past Anesthesia/Blood Transfusion Reactions: No Reported Reaction Past Psychological History: Anxiety, Bipolar, Depression Smoking Status: Never smoker Past Alcohol Use History: None Reported Past Drug Use History: None Reported - Past Family History Mother Family Medical History: Diabetes Mellitus, Renal Disease Additional Family Medical History / Comment(s): Mother is alive at age 61 with history of diabetes (wears insulin pump). Brother(s) Additional Family Medical History / Comment(s): Patient has 2 brothers and one has history of diabetes and one has no major medical problems. Medications and Allergies Home Medications Medication Instructions Recorded Confirmed Type Omeprazole 40 mg PO DAILY 03/27/20 01/04/22 History Venlafaxine HCl [Effexor XR] 225 mg PO DAILY 03/27/20 01/04/22 History buPROPion HCL [Wellbutrin SR] 150 mg PO BID 03/27/20 01/04/22 History Insulin NPH Hum/Reg Insulin Hm 20 unit SQ BID 06/29/20 01/04/22 History [humuLIN 70/30 Kwikpen] Methylphenidate HCl 20 mg PO BID 06/29/20 01/04/22 History Hydrocodone/Acetaminophen [[place] 1 tab PO TID PRN 06/30/20 01/04/22 History 7.5-325] Benztropine Mesylate [Cogentin] 1.5 mg PO TID 09/25/21 01/04/22 History Dapagliflozin Propanediol [Farxiga] 10 mg PO DAILY 09/25/21 01/04/22 History Gabapentin [Neurontin] 400 mg PO TID 09/25/21 01/04/22 History Midodrine HCl [ProAmatine] 10 mg PO TID 09/25/21 01/04/22 History Pioglitazone [Actos] 15 mg PO DAILY 09/25/21 01/04/22 History Rosuvastatin [Crestor] 20 mg PO HS 09/25/21 01/04/22 History Apixaban [Eliquis] 5 mg PO BID 01/04/22 01/04/22 History Dulaglutide [Trulicity] 1.5 mg SQ Q7D 01/04/22 01/04/22 History Ferrlecit 62.5mg/5ml 125 mg IV DIRECTED 01/04/22 01/04/22 History Pilocarpine [Salagen] 5 mg PO TID 01/04/22 01/04/22 History Tamsulosin HCl [Flomax] 0.4 mg PO DAILY 01/04/22 01/04/22 History hydrALAZINE HCL [Apresoline] 50 mg PO BID 01/04/22 01/04/22 History polyethylene glycoL 3350 [Miralax] 17 gm PO DAILY 01/04/22 01/04/22 History Allergies Allergy/AdvReac Type Severity Reaction Status Date / Time lactose AdvReac Nausea & Verified 01/04/22 10:05 Vomiting & Diarrhea Physical Exam Vitals: Vital Signs Temp Pulse Pulse Resp BP BP Pulse Ox 01/05/22 04:00 97.9 F 77 18 166/91 92 L 01/04/22 23:13 98.0 F 98 19 148/74 96 01/04/22 20:00 97.7 F 72 19 149/73 98 01/04/22 16:41 98.2 F 93 20 157/70 97 01/04/22 16:30 93 01/04/22 15:54 98.5 F 89 18 155/82 99 01/04/22 14:43 84 18 154/83 92 L 01/04/22 13:29 84 18 151/85 95 01/04/22 12:25 89 18 149/80 98 01/04/22 10:08 84 18 140/81 98 01/04/22 09:13 89 18 132/86 91 L 01/04/22 08:43 18 123/93 91 L 01/04/22 08:26 98.5 F 93 18 76/58 90 L Intake and Output 01/04/22 01/04/22 01/05/22 14:59 22:59 06:59 Output Total 900 800 Balance -900 -800 Output: Urine 900 800 Other: Voiding Method Indwelling Catheter Indwelling Catheter Weight 86.183 kg 86.183 kg - Constitutional General appearance: no acute distress - Respiratory Respiratory: bilateral: CTA - Cardiovascular Rhythm: regular Heart sounds: normal: S1, S2 Results 01/04/22 08:54 01/04/22 08:54 Cardiac Enzymes 01/04/22 01/04/22 01/04/22 Range/Units 08:54 08:54 15:18 AST 28 (17-59) U/L Troponin I 0.148 H* 0.275 H* (0.000-0.034) ng/mL 01/04/22 Range/Units 17:54 AST (17-59) U/L Troponin I 0.260 H* (0.000-0.034) ng/mL Coagulation 01/04/22 01/04/22 Range/Units 08:54 17:54 PT 11.5 (9.0-12.0) sec APTT 31.2 H 58.4 H (22.0-30.0) sec CBC 01/04/22 Range/Units 08:54 WBC 14.8 H (3.8-10.6) k/uL RBC 2.77 L (4.30-5.90) m/uL Hgb 7.7 L (13.0-17.5) gm/dL Hct 23.9 L (39.0-53.0) % Plt Count 241 (150-450) k/uL Comprehensive Metabolic Panel 01/04/22 Range/Units 08:54 Sodium 135 L (137-145) mmol/L Potassium 5.5 H (3.5-5.1) mmol/L Chloride 101 (98-107) mmol/L Carbon Dioxide 22 (22-30) mmol/L BUN 61 H (9-20) mg/dL Creatinine 2.83 H (0.66-1.25) mg/dL Glucose 90 (74-99) mg/dL Calcium 8.3 L (8.4-10.2) mg/dL AST 28 (17-59) U/L ALT 15 (4-49) U/L Alkaline Phosphatase 67 (38-126) U/L Total Protein 5.8 L (6.3-8.2) g/dL Albumin 3.4 L (3.5-5.0) g/dL Current Medications Generic Name Dose Route Start Last Admin Trade Name Freq PRN Reason Stop Dose Admin Hydrocodone Bitart/Acetaminophen 1 each 01/04/22 12:16 01/04/22 17:04 Hydrocodone/Apap 7.5-325mg 1 Each Tab PO 1 each TID PRN Administration Pain Atorvastatin Calcium 40 mg 01/04/22 21:00 01/04/22 20:45 Atorvastatin 40 Mg Tab PO 40 mg HS KERVIN Administration Benztropine Mesylate 1.5 mg 01/04/22 16:00 01/04/22 20:45 Benztropine Mesylate 0.5 Mg Tab PO 1.5 mg TID KERVIN Administration Bupropion HCl 150 mg 01/04/22 21:00 01/04/22 20:45 Bupropion Sr 150 Mg Tablet.Er PO 150 mg BID KERVIN Administration Gabapentin 100 mg 01/04/22 22:00 01/04/22 20:45 Gabapentin 100 Mg Cap PO 100 mg TID KERVIN Administration Heparin Sodium (Porcine) 0 unit 01/04/22 11:11 Heparin Sodium 1,000 Un/Ml (10ml Vl) IV PER PROTOCOL PRN Low PTT Protocol Hydralazine HCl 50 mg 01/04/22 21:00 01/04/22 20:45 Hydralazine Hcl 50 Mg Tab PO 50 mg BID KERVIN Administration Ceftriaxone Sodium 2 gm/ 50 mls @ 100 mls/hr 01/05/22 09:00 Sodium Chloride IVPB Q24HR KERVIN Protocol Heparin Sodium/Sodium Chloride 250 mls @ 10 mls/hr 01/04/22 11:15 01/04/22 12:29 25,000 unit/ Sodium Chloride IV 11.603 units/kg/hr .Q24H KERVIN 10 mls/hr Administration Protocol 11.603 UNITS/KG/HR Insulin Aspart 20 unit 01/04/22 17:30 01/04/22 17:02 Insuln Asp Prt/Insulin Aspart 100 Unit/Ml 10 Ml Vial SQ Not Given AC-BID KERVIN Methylphenidate HCl 20 mg 01/04/22 17:30 01/05/22 05:53 Methylphenidate Hcl 10 Mg Tab PO 20 mg AC-BID KERVIN Administration Midodrine 10 mg 01/04/22 16:00 01/04/22 23:13 Midodrine 5 Mg Tab PO Not Given TID KERVIN Naloxone HCl 0.2 mg 01/04/22 12:14 Naloxone 0.4 Mg/Ml 1 Ml Vial IV Q2M PRN Opioid Reversal Non-Formulary Medication 1.5 mg 01/05/22 09:00 Dulaglutide [Trulicity] SQ Q7D [facility] Ondansetron HCl 4 mg 01/04/22 12:14 Ondansetron 4 Mg/2 Ml Vial IVP Q8HR PRN Nausea And Vomiting Pantoprazole Sodium 40 mg 01/05/22 07:30 01/05/22 05:53 Pantoprazole 40 Mg Tablet PO 40 mg [id number] KERVIN Administration Pilocarpine HCl 5 mg 01/04/22 16:00 01/04/22 20:45 Pilocarpine 5 Mg Tab PO 5 mg TID KERVIN Administration Pioglitazone HCl 15 mg 01/05/22 09:00 Pioglitazone 15 Mg Tab PO DAILY KERVIN Tamsulosin HCl 0.4 mg 01/05/22 09:00 Tamsulosin 0.4 Mg Cap.Er.24h PO DAILY KERVIN Venlafaxine HCl 225 mg 01/05/22 09:00 Venlafaxine Hcl Er 75 Mg Cap PO DAILY KERVIN Intake and Output 01/04/22 01/04/22 01/05/22 14:59 22:59 06:59 Output Total 900 800 Balance -900 -800 Output: Urine 900 800 Other: Voiding Method Indwelling Catheter Indwelling Catheter Weight 86.183 kg 86.183 kg Patient Weight 01/05/22 06:59 Weight 86.183 kg 01/04/22 08:54 01/04/22 08:54 Assessment and Plan Assessment: Assessment Change in mental status Urinary tract infection History of stroke with residual left-sided weakness Chronic kidney disease Evidence of myocardial injury was no evidence of ischemia Hypertension Multiple comorbid conditions Plan Consider conservative medical approach for the mildly abnormal troponin which is likely secondary to renal dysfunction Restart the patient back on the hydralazine for better blood pressure control Restart the patient back on stress Continue anticoagulation for the stroke Obtain an echo for further clarification for any wall motion abnormalities and to assess ejection fraction Follow-up with the patient
[2022-01-05] MEDS: INSULN ASP PRT/INSULIN ASPART 100 UNIT/ML 10 ML VIAL SQ SCH ×2 (06:30→16:43)
[2022-01-05 08:22] LABS: Basophils % (A) 0 %; Eosinophils # (A) 0.3 k/uL (0-0.7); Eosinophils % (A) 2 %; HGB 7.4 gm/dL (13.0-17.5); Hypochromasia Moderate; Lymphocytes # (A) 0.9 k/uL (1.0-4.8); Lymphocytes % (A) 8 %; MCH 27.8 pg (25.0-35.0); MCV 89.5 fL (80.0-100.0); Mean Platelet Volume 7.1; Monocytes # (A) 0.7 k/uL (0-1.0); Monocytes % (A) 6 %; Neutrophils % (A) 83 %; Platelet Count 259 k/uL (150-450); RBC 2.68 m/uL (4.30-5.90); WBC 12.2 k/uL (3.8-10.6)
[2022-01-05 08:26] LABS: Partial Thromboplastin Time 32.6 sec (22.0-30.0); Prothrombin Time 11.3 sec (9.0-12.0)
[2022-01-05] MEDS: MIDODRINE 5 MG TAB PO SCH ×3 (08:44→20:35)
[2022-01-05] MEDS: TAMSULOSIN 0.4 MG CAP.ER.24H PO SCH (08:44)
[2022-01-05] MEDS: BENZTROPINE MESYLATE 0.5 MG TAB PO SCH ×3 (08:44→20:35)
[2022-01-05] MEDS: GABAPENTIN 100 MG CAP PO SCH ×3 (08:44→20:35)
[2022-01-05] MEDS: hydrALAZINE HCL 50 MG TAB PO SCH ×2 (08:44→20:34)
[2022-01-05] MEDS: VENLAFAXINE HCL ER 75 MG CAP PO SCH (08:45)
[2022-01-05] MEDS: PILOCARPINE 5 MG TAB PO SCH ×3 (08:45→20:35)
[2022-01-05] MEDS: buPROPion SR 150 MG TABLET.ER PO SCH ×2 (08:45→20:34)
[2022-01-05] MEDS: PIOGLITAZONE 15 MG TAB PO SCH (08:45)
[2022-01-05 08:52] LABS: Calcium 7.9 mg/dL (8.4-10.2); Potassium 4.7 mmol/L (3.5-5.1)
[2022-01-05] MEDS ORDERED: NON FORMULARY DRUG (Dulaglutide [Trulicity] 1.5 MG/0.5 ML Each) SQ SCH (09:00)
[2022-01-05] MEDS ORDERED: DAPAGLIFLOZIN PROPANEDIOL 10 MG TABLET PO SCH (09:00)
--- NOTE | 2022-01-05 09:15 | P.NPCON ---
History of Present Illness - Reason for Consult acute renal failure, chronic renal failure - History of Present Illness reason for consultation: Acute kidney injury on chronic kidney disease History of present illness: Patient is a 51-year-old male seen in renal consultation for acute kidney injury on chronic kidney disease. Patient's creatinine in August 2020 was 1.5 but this year it has been in the range of 2-2.7. Creatinine this admission was 2.83 and as 2.54 today. Patient has history of multiple strokes and has left-sided paralysis. He presented to the hospital due to dizziness and falls. He's also been having nausea and vomiting. Patient is currently receiving IV fluids.he was also taken for c-collar at home which is currently held. Patient has long- standing history of diabetes mellitus. He denies history of coronary artery disease. Patient states he saw urology about a week ago and a Rosado catheter was placed due to incomplete bladder emptying.patient is nonoliguric with urine output documented as 1.7 L since admission.blood pressure was low on admission and is improved with IV fluids. He denies any gross hematuria. Vital signs are stable. General: awake. No acute distress. HEENT: Head exam is unremarkable. LUNGS: Breath sounds decreased. HEART: Rate and Rhythm are regular. ABDOMEN: Abdominal exam reveals normal bowel sounds. EXTREMITITES: No edema. 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/walks short distances with walker, IDDM type II, neuropathy bilateral legs/feet, gastroparesis, autonomic dysfunction, CKD stage III, BPH, hypotension at times, vertigo when first stands, ELISSA/does not wear his cpap, hypothyroid, bilateral glaucoma/retinal problems History of Any Multi-Drug Resistant Organisms: MRSA Date of last positivie culture/infection: 04/22/16 MDRO Source:: Right Hand Past Surgical History: Orthopedic Surgery Additional Past Surgical History / Comment(s): Recent 6 teeth extracted, PETRA, bilateral eye retinal scraping, bilateral eye cataract removals, colonoscopies Past Anesthesia/Blood Transfusion Reactions: No Reported Reaction Past Psychological History: Anxiety, Bipolar, Depression Smoking Status: Never smoker Past Alcohol Use History: None Reported Past Drug Use History: None Reported - Past Family History Mother Family Medical History: Diabetes Mellitus, Renal Disease Additional Family Medical History / Comment(s): Mother is alive at age 61 with history of diabetes (wears insulin pump). Brother(s) Additional Family Medical History / Comment(s): Patient has 2 brothers and one has history of diabetes and one has no major medical problems. Medications and Allergies Home Medications Medication Instructions Recorded Confirmed Type Omeprazole 40 mg PO DAILY 03/27/20 01/04/22 History Venlafaxine HCl [Effexor XR] 225 mg PO DAILY 03/27/20 01/04/22 History buPROPion HCL [Wellbutrin SR] 150 mg PO BID 03/27/20 01/04/22 History Insulin NPH Hum/Reg Insulin Hm 20 unit SQ BID 06/29/20 01/04/22 History [humuLIN 70/30 Kwikpen] Methylphenidate HCl 20 mg PO BID 06/29/20 01/04/22 History Hydrocodone/Acetaminophen [Santa Claus 1 tab PO TID PRN 06/30/20 01/04/22 History 7.5-325] Benztropine Mesylate [Cogentin] 1.5 mg PO TID 09/25/21 01/04/22 History Dapagliflozin Propanediol [Farxiga] 10 mg PO DAILY 09/25/21 01/04/22 History Gabapentin [Neurontin] 400 mg PO TID 09/25/21 01/04/22 History Midodrine HCl [ProAmatine] 10 mg PO TID 09/25/21 01/04/22 History Pioglitazone [Actos] 15 mg PO DAILY 09/25/21 01/04/22 History Rosuvastatin [Crestor] 20 mg PO HS 09/25/21 01/04/22 History Apixaban [Eliquis] 5 mg PO BID 01/04/22 01/04/22 History Dulaglutide [Trulicity] 1.5 mg SQ Q7D 01/04/22 01/04/22 History Ferrlecit 62.5mg/5ml 125 mg IV DIRECTED 01/04/22 01/04/22 History Pilocarpine [Salagen] 5 mg PO TID 01/04/22 01/04/22 History Tamsulosin HCl [Flomax] 0.4 mg PO DAILY 01/04/22 01/04/22 History hydrALAZINE HCL [Apresoline] 50 mg PO BID 01/04/22 01/04/22 History polyethylene glycoL 3350 [Miralax] 17 gm PO DAILY 01/04/22 01/04/22 History Allergies Allergy/AdvReac Type Severity Reaction Status Date / Time lactose AdvReac Nausea & Verified 01/04/22 10:05 Vomiting & Diarrhea Physical Exam Vitals: Vital Signs Temp Pulse Pulse Resp BP BP Pulse Ox 01/05/22 08:55 99.3 F 90 18 153/92 94 L 01/05/22 04:00 97.9 F 77 18 166/91 92 L 01/04/22 23:13 98.0 F 98 19 148/74 96 01/04/22 20:00 97.7 F 72 19 149/73 98 01/04/22 16:41 98.2 F 93 20 157/70 97 01/04/22 16:30 93 01/04/22 15:54 98.5 F 89 18 155/82 99 01/04/22 14:43 84 18 154/83 92 L 01/04/22 13:29 84 18 151/85 95 01/04/22 12:25 89 18 149/80 98 01/04/22 10:08 84 18 140/81 98 01/04/22 09:13 89 18 132/86 91 L Intake and Output 01/04/22 01/05/22 01/05/22 22:59 06:59 14:59 Output Total 900 800 Balance -900 -800 Output: Urine 900 800 Other: Voiding Method Indwelling Catheter Indwelling Catheter Indwelling Catheter Weight 86.183 kg 86 kg Results - Lab Results Most recent lab results Calcium 7.9 mg/dL (8.4-10.2) L 01/05/22 07:40 Magnesium 2.0 mg/dL (1.6-2.3) 01/05/22 07:40 01/05/22 07:40 01/05/22 07:40 Assessment and Plan Plan: assessment: 1. Acute kidney injury mostly prerenal secondary to hypotension. Improved with IV hydration.creatinine was 2.83 on admission and is 2.54 today. no hydro nephrosis noted on kidney ultrasound. 2. Chronic kidney disease stage IIIB/4. Creatinine in August 2020 was 1.5 but this year creatinine has been in the range of 2-2.7. Etiology is diabetic kidney disease. 3. Anemia of chronic kidney disease. Rule out iron deficiency. 4. Diabetes mellitus. 5. Urinary retention. Currently has a Rosado catheter. On Flomax. Follows with urology outpatient. 6. History of CVA with left-sided paralysis. 7. UTI on antibiotics. Plan: Maintain IV fluids. Hold farxiga for now. Dose of neurontin decreased. Check iron studies. Check orthostatic vital signs. Encourage oral intake. Check serologies. Continue to monitor renal function and urine output. follow-up echocardiogram. Hold midodrine for standing systolic blood pressure greater than 125. hold hydralazine for standing systolic blood pressure less than 125. Follow-up outpatient in 1 week to establish CKD care. Thank you for the consultation. I will continue to follow the patient with you during his hospital stay.
[2022-01-05 11:35] LABS: Glucose,Whole Blood 143 mg/dL (70-110)
[2022-01-05 16:17] LABS: Hepatitis A Antibody IgM Nonreactive (Nonreactive); Hepatitis B Core IgM Nonreactive (Nonreactive); Hepatitis B Surface Antigen Nonreactive (Nonreactive); Hepatitis C IgG Antibody Nonreactive (Nonreactive)
[2022-01-05 16:21] LABS: % Iron Saturation 4.13 (15.00-50.00)
[2022-01-05 16:24] LABS: Glucose,Whole Blood 155 mg/dL (70-110)
[2022-01-05 20:15] LABS: Glucose,Whole Blood 135 mg/dL (70-110)
[2022-01-05] MEDS: ATORVASTATIN 40 MG TAB PO SCH (20:34)
[2022-01-06] MEDS: METHYLPHENIDATE HCL 10 MG TAB PO SCH ×2 (06:00→17:03)
[2022-01-06] MEDS: PANTOPRAZOLE 40 MG TABLET PO SCH (06:00)
[2022-01-06 06:23] LABS: Glucose,Whole Blood 133 mg/dL (70-110)
--- NOTE | 2022-01-06 06:29 | P.PN ---
Subjective Progress Note Date: 01/06/22 Principal diagnosis: Hypertension This is an unfortunate 51-year-old gentleman with a past medical history significant for stroke with residual left-sided weakness diagnosed in 2020 as well as hypertension and dyslipidemia and diabetes and chronic kidney disease presented to the hospital not feeling well. He is somewhat poor historian. He stated that he lives in an apartment with his mother. He has not been feeding well where he was experiencing symptoms of generalized weakness and fatigue associated with dizziness and lightheadedness. No symptoms of chest pain or chest discomfort and no increasing in the shortness of breath. He presented to the emergency department and we consulted to see the patient because troponin was checked and came in to be slightly abnormal. Please note that the patient does have chronic kidney disease. He underwent cardiac workup including EKG showing sinus rhythm with no significant ST or T-wave abnormalities. Beside that clinically he never had any symptoms of chest pain or chest discomfort or any shortness of breath. He also underwent a workup which showed possible UTI and currently he is on antibiotic. He was seen by our service in 2020 where he underwent further investigation for the stroke including transesophageal ec hocardiogram which revealed no cardiac source of embolization. Also he underwent an echocardiogram which revealed normal LV function with no significant valvular abnormalities. Clinically he is stable in terms of symptoms but pressure is elevated. I'm going to restart him back on the current dose of hydralazine he was receiving at home. Also start the patient back on statin. Beside that he is on anticoagulation which was restarted already. I would consider conservative medical approach for the mildly abnormal troponin January [id number] The patient was seen this morning. He states overall "I feel better". He denies any chest pain or chest discomfort or shortness of breath. The blood pressure continues to be elevated. I'm going to increase the dose of hydralazine to 75 mg by mouth 3 times a day. Beside that add carvedilol 3.125 mg by mouth twice a day to the current medical regimen. Continue considering conservative medical approach regarding the mildly abnormal troponin. Objective - Vital Signs Vital signs: Vital Signs Temp 97.8 F 01/06/22 04:00 Pulse 90 01/06/22 04:00 Resp 18 01/06/22 04:00 BP 178/88 01/06/22 04:00 Pulse Ox 95 01/06/22 04:00 FiO2 Intake & Output 01/05/22 01/05/22 01/06/22 06:59 18:59 06:59 Intake Total 360 Output Total 1700 1200 950 Balance -1700 -840 -950 Weight 86 kg 89 kg Intake: Oral 360 Output: Urine 1700 1200 950 Other: Voiding Method Indwelling Catheter Indwelling Catheter Indwelling Catheter - Constitutional General appearance: Present: no acute distress - Respiratory Respiratory: bilateral: CTA - Cardiovascular Rhythm: regular - Labs CBC & Chem 7: 01/05/22 07:40 01/05/22 07:40 Labs: Abnormal Lab Results - Last 24 Hours (Table) 01/05/22 01/05/22 01/05/22 Range/Units 07:40 07:40 07:40 WBC 12.2 H (3.8-10.6) k/uL RBC 2.68 L (4.30-5.90) m/uL Hgb 7.4 L (13.0-17.5) gm/dL Hct 24.0 L (39.0-53.0) % Neutrophils # 10.0 H (1.3-7.7) k/uL Lymphocytes # 0.9 L (1.0-4.8) k/uL APTT 32.6 H (22.0-30.0) sec BUN (9-20) mg/dL Creatinine (0.66-1.25) mg/dL Glucose (74-99) mg/dL POC Glucose (mg/dL) (70-110) mg/dL Plasma Lactic Acid Andrea <0.5 L (0.7-2.0) mmol/L Calcium (8.4-10.2) mg/dL Iron (65-175) ug/dL TIBC (228-460) ug/dL % Saturation (15.00-50.00) Transferrin (204.0-354.0) mg/dL Total Protein (PEP) (6.2-8.2) g/dL 01/05/22 01/05/22 01/05/22 Range/Units 07:40 09:23 09:23 WBC (3.8-10.6) k/uL RBC (4.30-5.90) m/uL Hgb (13.0-17.5) gm/dL Hct (39.0-53.0) % Neutrophils # (1.3-7.7) k/uL Lymphocytes # (1.0-4.8) k/uL APTT (22.0-30.0) sec BUN 47 H (9-20) mg/dL Creatinine 2.54 H (0.66-1.25) mg/dL Glucose 110 H (74-99) mg/dL POC Glucose (mg/dL) (70-110) mg/dL Plasma Lactic Acid Andrea (0.7-2.0) mmol/L Calcium 7.9 L (8.4-10.2) mg/dL Iron 9 L (65-175) ug/dL TIBC 223 L (228-460) ug/dL % Saturation 4.13 L (15.00-50.00) Transferrin 159.0 L (204.0-354.0) mg/dL Total Protein (PEP) 5.0 L (6.2-8.2) g/dL 01/05/22 01/05/22 01/05/22 Range/Units 09:23 11:34 16:22 WBC (3.8-10.6) k/uL RBC (4.30-5.90) m/uL Hgb (13.0-17.5) gm/dL Hct (39.0-53.0) % Neutrophils # (1.3-7.7) k/uL Lymphocytes # (1.0-4.8) k/uL APTT (22.0-30.0) sec BUN (9-20) mg/dL Creatinine (0.66-1.25) mg/dL Glucose (74-99) mg/dL POC Glucose (mg/dL) 143 H 155 H (70-110) mg/dL Plasma Lactic Acid Andrea (0.7-2.0) mmol/L Calcium (8.4-10.2) mg/dL Iron 9 L (65-175) ug/dL TIBC (228-460) ug/dL % Saturation (15.00-50.00) Transferrin (204.0-354.0) mg/dL Total Protein (PEP) (6.2-8.2) g/dL 01/05/22 01/06/22 Range/Units 20:13 06:21 WBC (3.8-10.6) k/uL RBC (4.30-5.90) m/uL Hgb (13.0-17.5) gm/dL Hct (39.0-53.0) % Neutrophils # (1.3-7.7) k/uL Lymphocytes # (1.0-4.8) k/uL APTT (22.0-30.0) sec BUN (9-20) mg/dL Creatinine (0.66-1.25) mg/dL Glucose (74-99) mg/dL POC Glucose (mg/dL) 135 H 133 H (70-110) mg/dL Plasma Lactic Acid Andrea (0.7-2.0) mmol/L Calcium (8.4-10.2) mg/dL Iron (65-175) ug/dL TIBC (228-460) ug/dL % Saturation (15.00-50.00) Transferrin (204.0-354.0) mg/dL Total Protein (PEP) (6.2-8.2) g/dL Microbiology - Last 24 Hours (Table) 01/04/22 12:00 Blood Culture - Preliminary Blood No Growth after 24 hours 01/04/22 12:00 Blood Culture - Preliminary Blood No Growth after 24 hours 01/04/22 09:55 Urine Culture - Preliminary Urine,Voided Gram Neg Bacilli Assessment and Plan Assessment: Assessment Change in mental status Urinary tract infection History of stroke with residual left-sided weakness Chronic kidney disease Evidence of myocardial injury was no evidence of ischemia Hypertension Multiple comorbid conditions Plan Consider conservative medical approach for the mildly abnormal troponin which is likely secondary to renal dysfunction Increase the dose of hydralazine for better blood pressure control Add carvedilol to the current medical regimen Continue anticoagulation for the stroke Follow-up on the echocardiogram Follow-up with the patient
[2022-01-06] MEDS: carvediloL 3.125 MG TAB PO SCH ×2 (06:51→17:03)
[2022-01-06] MEDS: INSULN ASP PRT/INSULIN ASPART 100 UNIT/ML 10 ML VIAL SQ SCH ×2 (06:51→17:03)
[2022-01-06 06:56] LABS: Basophils % (A) 0 %; Eosinophils # (A) 0.3 k/uL (0-0.7); Eosinophils % (A) 4 %; HCT 24.3 % (39.0-53.0); HGB 7.6 gm/dL (13.0-17.5); Hypochromasia Moderate; Lymphocytes # (A) 0.7 k/uL (1.0-4.8); Lymphocytes % (A) 8 %; MCH 27.6 pg (25.0-35.0); MCHC 31.3 g/dL (31.0-37.0); MCV 88.1 fL (80.0-100.0); Mean Platelet Volume 7.1; Monocytes # (A) 0.5 k/uL (0-1.0); Monocytes % (A) 6 %; Neutrophils # (A) 6.9 k/uL (1.3-7.7); Neutrophils % (A) 79 %; Platelet Count 256 k/uL (150-450); RBC 2.76 m/uL (4.30-5.90); RDW 13.7 % (11.5-15.5); WBC 8.7 k/uL (3.8-10.6)
[2022-01-06 07:18] LABS: Calcium 7.9 mg/dL (8.4-10.2); Magnesium 1.8 mg/dL (1.6-2.3); Potassium 4.5 mmol/L (3.5-5.1)
[2022-01-06] MEDS: buPROPion SR 150 MG TABLET.ER PO SCH ×2 (08:35→20:06)
[2022-01-06] MEDS: VENLAFAXINE HCL ER 75 MG CAP PO SCH (08:35)
[2022-01-06] MEDS: PILOCARPINE 5 MG TAB PO SCH ×3 (08:35→20:06)
[2022-01-06] MEDS: BENZTROPINE MESYLATE 0.5 MG TAB PO SCH ×3 (08:35→20:06)
[2022-01-06] MEDS: TAMSULOSIN 0.4 MG CAP.ER.24H PO SCH (08:35)
[2022-01-06] MEDS: GABAPENTIN 100 MG CAP PO SCH ×3 (08:35→20:06)
[2022-01-06] MEDS: hydrALAZINE HCL 50 MG TAB PO SCH ×2 (08:35→20:06)
[2022-01-06] MEDS: PIOGLITAZONE 15 MG TAB PO SCH (08:41)
--- NOTE | 2022-01-06 09:30 | P.PN ---
Subjective patient is seen in follow for acute kidney injury. Renal function improving with IV hydration. Good urine output. No vomiting or diarrhea. hemodynamically stable. Standing blood pressure 127/75. Vital signs are stable. General: awake. No acute distress. HEENT: Head exam is unremarkable. LUNGS: Breath sounds decreased. HEART: Rate and Rhythm are regular. ABDOMEN: soft, no distention. EXTREMITITES: No edema. Objective - Vital Signs Vital signs: Vital Signs Temp 97.6 F 01/06/22 08:46 Pulse 86 01/06/22 08:46 Resp 18 01/06/22 08:46 BP 163/74 01/06/22 08:46 Pulse Ox 97 01/06/22 08:46 FiO2 Intake & Output 01/05/22 01/06/22 01/06/22 18:59 06:59 18:59 Intake Total 360 Output Total 1200 950 Balance -840 -950 Weight 89 kg Intake: Oral 360 Output: Urine 1200 950 Other: Voiding Method Indwelling Catheter Indwelling Catheter Indwelling Catheter - Labs CBC & Chem 7: 01/06/22 06:28 01/06/22 06:28 Labs: Abnormal Lab Results - Last 24 Hours (Table) 01/05/22 01/05/22 01/05/22 Range/Units 09:23 09:23 09:23 RBC (4.30-5.90) m/uL Hgb (13.0-17.5) gm/dL Hct (39.0-53.0) % Lymphocytes # (1.0-4.8) k/uL BUN (9-20) mg/dL Creatinine (0.66-1.25) mg/dL Glucose (74-99) mg/dL POC Glucose (mg/dL) (70-110) mg/dL Calcium (8.4-10.2) mg/dL Iron 9 L 9 L (65-175) ug/dL TIBC 223 L (228-460) ug/dL % Saturation 4.13 L (15.00-50.00) Transferrin 159.0 L (204.0-354.0) mg/dL Total Protein (PEP) 5.0 L (6.2-8.2) g/dL 01/05/22 01/05/22 01/05/22 Range/Units 11:34 16:22 20:13 RBC (4.30-5.90) m/uL Hgb (13.0-17.5) gm/dL Hct (39.0-53.0) % Lymphocytes # (1.0-4.8) k/uL BUN (9-20) mg/dL Creatinine (0.66-1.25) mg/dL Glucose (74-99) mg/dL POC Glucose (mg/dL) 143 H 155 H 135 H (70-110) mg/dL Calcium (8.4-10.2) mg/dL Iron (65-175) ug/dL TIBC (228-460) ug/dL % Saturation (15.00-50.00) Transferrin (204.0-354.0) mg/dL Total Protein (PEP) (6.2-8.2) g/dL 01/06/22 01/06/22 01/06/22 Range/Units 06:21 06:28 06:28 RBC 2.76 L (4.30-5.90) m/uL Hgb 7.6 L (13.0-17.5) gm/dL Hct 24.3 L (39.0-53.0) % Lymphocytes # 0.7 L (1.0-4.8) k/uL BUN 36 H (9-20) mg/dL Creatinine 2.32 H (0.66-1.25) mg/dL Glucose 116 H (74-99) mg/dL POC Glucose (mg/dL) 133 H (70-110) mg/dL Calcium 7.9 L (8.4-10.2) mg/dL Iron (65-175) ug/dL TIBC (228-460) ug/dL % Saturation (15.00-50.00) Transferrin (204.0-354.0) mg/dL Total Protein (PEP) (6.2-8.2) g/dL Microbiology - Last 24 Hours (Table) 01/04/22 12:00 Blood Culture - Preliminary Blood No Growth after 24 hours 01/04/22 12:00 Blood Culture - Preliminary Blood No Growth after 24 hours 01/04/22 09:55 Urine Culture - Preliminary Urine,Voided Gram Neg Bacilli Assessment and Plan Plan: assessment: 1. Acute kidney injury mostly prerenal secondary to hypotension. Improved with IV hydration.creatinine was 2.83 on admission and is 2.32 today. no hydronephrosis noted on kidney ultrasound. 2. Chronic kidney disease stage IIIB/4. Creatinine in August 2020 was 1.5 but this year creatinine has been in the range of 2-2.7. Etiology is diabetic kidney disease. 3. Anemia of chronic kidney disease. iron deficiency noted. 4. Diabetes mellitus. 5. Urinary retention. Currently has a Rosado catheter. On Flomax. Follows with urology outpatient. 6. History of CVA with left-sided paralysis. 7. UTI on antibiotics. urine culture positive for gram-negative bacilli. Plan: Maintain IV fluids. Hold farxiga for now due to UTI. Add IV iron. Encourage oral intake. Follow-up serologies. Continue to monitor renal function and urine output. follow-up echocardiogram. hold hydralazine for standing systolic blood pressure less than 125. Follow-up outpatient in 1 week to establish CKD care.
--- NOTE | 2022-01-06 10:44 | P.PN ---
Subjective Progress Note Date: 01/05/22 51-year-old male with past medical history remarkable for prior stroke with residual left-sided paralysis on eliquis, chronic severe vertigo, diabetes, hypertension presents emergency Department over concern for recurrent episodes of nausea, vomiting, vertigo symptoms, as well as falls at home. Does have a history of falls. States he feels like the room is spinning, which resulted in multiple episodes since last night of emesis which was yellow in color. He is covered in yellow emesis at this time throughout all over himself. States this is related to the room spinning sensation. Denies chest pain, shortness breath, abdominal pain. States he did have a Rosado catheter placed recently, and since that time has been having bilateral testicular discomfort and pain. Believes it has been in for at least a week. Denies any hematemesis. Denies any hematochezia or melena. No diarrhea. Believes he may have some mild hematuria. Does have a history of anemia requiring transfusions. Denies headache. Denies any new motor or sensory deficits. Presents for further evaluation at this time. Patient was mildly hypotensive upon arrival which resolved with minimal fluids.Patient states he has fallen twice over the last day as well. Denies hitting his head or experiencing loss of consciousness. EKG showed no signs of acute ischemia. Chest x-ray showed no acute cardiopulmonary process. CT brain showed no acute intracranial process. Scrotal ultrasound revealed no signs of torsion. Good arterial flow to bilateral testes. Laboratory studies remarkable for a leukocytosis of 14.8, hemoglobin of 7.7. Patient is hyperkalemic to 5.5, BUN/creatinine 61/2.3. Is receiving IV fluid hydration at this time. Troponin is elevated to 0.148. Urinalysis is concerning for UTI. Occult blood is negative. Acetone is negative. Covid is negative. Objective - Vital Signs Vital signs: Vital Signs Temp 99.3 F 01/05/22 08:55 Pulse 90 01/05/22 08:55 Resp 18 01/05/22 08:55 BP 153/92 01/05/22 08:55 Pulse Ox 94 L 01/05/22 08:55 FiO2 Intake & Output 01/04/22 01/05/22 01/05/22 18:59 06:59 18:59 Intake Total 120 Output Total 1700 Balance -1700 120 Weight 86.183 kg 86 kg Intake: Oral 120 Output: Urine 1700 Other: Voiding Method Indwelling Catheter Indwelling Catheter Indwelling Catheter - Exam General: Appears in mild distress. HEAD: Normal with no signs of head trauma. EYES: PERRLA, EOMI, conjunctiva normal, no discharge. Pupils are 3 mm and equal bilaterally. ENT: Hearing grossly intact, normal oropharynx. Dry mucous membranes. RESPIRATORY: Clear breath sounds bilaterally. No wheezes, rales, or rhonchi. No respiratory distress. Mild hypoxia on room air to 91%. C/V: Regular rate and rhythm. S1 and S2 auscultated, no edema, peripheral pulses 2+ and intact throughout ABD: Abd is soft, nontender, nondistended : Penis and testicles are unremarkable. No obvious lesions or skin changes. Scrotum is soft. Some relief in pain with lifting of both testicles. Relatively unremarkable exam. Rosado is in place. EXT: Normal range of motion, no obvious deformity SKIN: No rashes or lesions observed on exposed skin. Covered in yellow emesis. NEURO: Alert and oriented 4. At his normal baseline with left-sided paralysis. No focal deficits. GCS of 15. - Labs CBC & Chem 7: 01/06/22 06:28 01/06/22 06:28 Labs: Abnormal Lab Results - Last 24 Hours (Table) 01/04/22 01/04/22 01/04/22 Range/Units 08:54 09:55 12:41 WBC (3.8-10.6) k/uL RBC (4.30-5.90) m/uL Hgb (13.0-17.5) gm/dL Hct (39.0-53.0) % Neutrophils # (1.3-7.7) k/uL Lymphocytes # (1.0-4.8) k/uL APTT (22.0-30.0) sec BUN (9-20) mg/dL Creatinine (0.66-1.25) mg/dL Glucose (74-99) mg/dL POC Glucose (mg/dL) (70-110) mg/dL Plasma Lactic Acid Andrea (0.7-2.0) mmol/L Calcium (8.4-10.2) mg/dL Troponin I 0.148 H* (0.000-0.034) ng/mL Urine Protein 2+ H 1+ H (Negative) Urine Glucose (UA) 3+ H 3+ H (Negative) Urine Blood Large H Small H (Negative) Urine Bilirubin 1+ H (Negative) Ur Leukocyte Esterase Large H Small H (Negative) Urine RBC 174 H (0-5) /hpf Urine WBC >182 H 10 H (0-5) /hpf Urine WBC Clumps Many H (None) /hpf Amorphous Sediment Few H (None) /hpf Urine Bacteria Many H Many H (None) /hpf Urine Mucus Rare H (None) /hpf 01/04/22 01/04/22 01/04/22 Range/Units 15:18 17:54 17:54 WBC (3.8-10.6) k/uL RBC (4.30-5.90) m/uL Hgb (13.0-17.5) gm/dL Hct (39.0-53.0) % Neutrophils # (1.3-7.7) k/uL Lymphocytes # (1.0-4.8) k/uL APTT 58.4 H (22.0-30.0) sec BUN (9-20) mg/dL Creatinine (0.66-1.25) mg/dL Glucose (74-99) mg/dL POC Glucose (mg/dL) (70-110) mg/dL Plasma Lactic Acid Andrea (0.7-2.0) mmol/L Calcium (8.4-10.2) mg/dL Troponin I 0.275 H* 0.260 H* (0.000-0.034) ng/mL Urine Protein (Negative) Urine Glucose (UA) (Negative) Urine Blood (Negative) Urine Bilirubin (Negative) Ur Leukocyte Esterase (Negative) Urine RBC (0-5) /hpf Urine WBC (0-5) /hpf Urine WBC Clumps (None) /hpf Amorphous Sediment (None) /hpf Urine Bacteria (None) /hpf Urine Mucus (None) /hpf 01/04/22 01/05/22 01/05/22 Range/Units 20:29 06:00 07:40 WBC 12.2 H (3.8-10.6) k/uL RBC 2.68 L (4.30-5.90) m/uL Hgb 7.4 L (13.0-17.5) gm/dL Hct 24.0 L (39.0-53.0) % Neutrophils # 10.0 H (1.3-7.7) k/uL Lymphocytes # 0.9 L (1.0-4.8) k/uL APTT (22.0-30.0) sec BUN (9-20) mg/dL Creatinine (0.66-1.25) mg/dL Glucose (74-99) mg/dL POC Glucose (mg/dL) 128 H 127 H (70-110) mg/dL Plasma Lactic Acid Andrea (0.7-2.0) mmol/L Calcium (8.4-10.2) mg/dL Troponin I (0.000-0.034) ng/mL Urine Protein (Negative) Urine Glucose (UA) (Negative) Urine Blood (Negative) Urine Bilirubin (Negative) Ur Leukocyte Esterase (Negative) Urine RBC (0-5) /hpf Urine WBC (0-5) /hpf Urine WBC Clumps (None) /hpf Amorphous Sediment (None) /hpf Urine Bacteria (None) /hpf Urine Mucus (None) /hpf 01/05/22 01/05/22 01/05/22 Range/Units 07:40 07:40 07:40 WBC (3.8-10.6) k/uL RBC (4.30-5.90) m/uL Hgb (13.0-17.5) gm/dL Hct (39.0-53.0) % Neutrophils # (1.3-7.7) k/uL Lymphocytes # (1.0-4.8) k/uL APTT 32.6 H (22.0-30.0) sec BUN 47 H (9-20) mg/dL Creatinine 2.54 H (0.66-1.25) mg/dL Glucose 110 H (74-99) mg/dL POC Glucose (mg/dL) (70-110) mg/dL Plasma Lactic Acid Andrea <0.5 L (0.7-2.0) mmol/L Calcium 7.9 L (8.4-10.2) mg/dL Troponin I (0.000-0.034) ng/mL Urine Protein (Negative) Urine Glucose (UA) (Negative) Urine Blood (Negative) Urine Bilirubin (Negative) Ur Leukocyte Esterase (Negative) Urine RBC (0-5) /hpf Urine WBC (0-5) /hpf Urine WBC Clumps (None) /hpf Amorphous Sediment (None) /hpf Urine Bacteria (None) /hpf Urine Mucus (None) /hpf Microbiology - Last 24 Hours (Table) 01/04/22 09:55 Urine Culture - Preliminary Urine,Voided Assessment and Plan Assessment: 1. Elevated troponin - Patient has been placed on IV heparin from ED; we will continue per protocol; continue with aspirin, statins; recommend 2-D echo; monitor EKG and trend troponin - Cardiology is consulted for further recommendations 2. Nausea/vomiting/dehydration; patient has placed on normal saline at rate of 100 mL an hour; we will monitor strict OPAL's; symptomatic treatment for nausea and vomiting 3. UTI; Rocephin 1 g IV daily; blood culture and urine cultures obtained. Plans to make further adjustments in antibiotics once culture results are available 4. Acute on chronic kidney disease; patient has been placed on IV fluid hydration; monitor strict OPAL's, daily weights, renal function and electrolytes; avoid nephrotoxins and hypotension 5. Hyperkalemia; likely related to acute on chronic renal injury; we will monitor electrolytes closely with plans for further treatment if potassium level continues to trend up 6. Hypertension; takes hydralazine 50 mg by mouth twice a day 7. Hypothyroidism; patient is currently not on any thyroid replacement therapy 8. Diabetes mellitus type 2; continue home regimen; monitor Accu-Cheks every CHF with insulin sliding scale DVT prophylaxis; SCDs/IV heparin CODE STATUS; full code
[2022-01-06] MEDS: SODIUM FERRIC GLUCONAT-SUCROSE 125 MG in SODIUM CHLORIDE 0.9% 100 ML IVPB SCH (10:49)
--- NOTE | 2022-01-06 11:09 | CA ---
Transthoracic Echo Report Name: Ravinder Orellana Age: 51 Gender: M : 1970 Exam Date: 01/05/2022 11:52 Exam Location: [facility] Ht (in): 68 Wt (lb): 190 Ordering Physician: Jhony Mullen MD ([id number]) Attending/Referring Phys: Teletype Clerk Leonor Dejesus RDCS Procedure CPT: Indications: postive troponin Cardiac Hx: Technical Quality: Fair Contrast 1: Total Dose (mL): Contrast 2: Total Dose (mL): MEASUREMENTS (Male / Female) Normal Values 2D ECHO LV Diastolic Diameter PLAX 4.3 cm 4.2 - 5.9 / 3.9 - 5.3 cm LV Systolic Diameter PLAX 2.2 cm IVS Diastolic Thickness 1.4 cm 0.6 - 1.0 / 0.6 - 0.9 cm LVPW Diastolic Thickness 1.6 cm 0.6 - 1.0 / 0.6 - 0.9 cm LV Relative Wall Thickness 0.7 RV Internal Dim ED PLAX 3.4 cm LA Volume 96.4 cm??? 18 - 58 / 22 - 52 cm??? M-MODE Aortic Root Diameter MM 3.0 cm LA Systolic Diameter MM 4.6 cm LA Ao Ratio MM 1.5 AV Cusp Separation MM 1.7 cm DOPPLER AV Peak Velocity 122.6 cm/s AV Peak Gradient 6.0 mmHg LVOT Peak Velocity 124.1 cm/s LVOT Peak Gradient 6.2 mmHg MV Area PHT 4.6 cm??? Mitral E Point Velocity 106.7 cm/s Mitral A Point Velocity 91.9 cm/s Mitral E to A Ratio 1.2 MV Deceleration Time 165.3 ms MV E' Velocity 9.2 cm/s Mitral E to MV E' Ratio 11.6 TR Peak Velocity 334.3 cm/s TR Peak Gradient 44.7 mmHg Right Ventricular Systolic Press 48.5 mmHg FINDINGS Left Ventricle Mildly increased left ventricular wall thickness. Normal Left ventricular size, systolic function with no obvious regional wall motion abnormalities. Normal Left ventricular diastolic filling pattern. Left ventricular ejection fraction is estimated at 55-60 %. Right Ventricle Mild right ventricular dilatation. Mild pulmonary hypertension. Right Atrium Normal right atrial size. Left Atrium Moderate left atrial dilatation. Mitral Valve Structurally normal mitral valve. Mild mitral regurgitation. Aortic Valve No aortic valve stenosis or regurgitation. Tricuspid Valve Moderate tricuspid regurgitation. Pulmonic Valve Trace pulmonic regurgitation. Pericardium No pericardial effusion. Aorta Normal size aortic root and proximal ascending aorta. CONCLUSIONS Normal left ventricular dimension and systolic function Previewed by: Dr. Jhony Mullen MD (Electronically Signed) Final Date: 06 January 2022 11:08
[2022-01-06 11:58] LABS: Glucose,Whole Blood 106 mg/dL (70-110)
--- NOTE | 2022-01-06 15:40 | P.PN ---
Subjective Progress Note Date: 01/06/22 Principal diagnosis: Elevated troponin/ likely demand ischemia Acute on chronic kidney disease UTI Hyperkalemia 51-year-old male with past medical history remarkable for prior stroke with residual left-sided paralysis on eliquis, chronic severe vertigo, diabetes, hypertension presents emergency Department over concern for recurrent episodes of nausea, vomiting, vertigo symptoms, as well as falls at home. Does have a history of falls. States he feels like the room is spinning, which resulted in multiple episodes since last night of emesis which was yellow in color. He is covered in yellow emesis at this time throughout all over himself. States this is related to the room spinning sensation. Denies chest pain, shortness breath, abdominal pain. States he did have a Rosado catheter placed recently, and since that time has been having bilateral testicular discomfort and pain. Believes it has been in for at least a week. Denies any hematemesis. Denies any hematochezia or melena. No diarrhea. Believes he may have some mild hematuria. Does have a history of anemia requiring transfusions. Denies headache. Denies any new motor or sensory deficits. Presents for further evaluation at this time. Patient was mildly hypotensive upon arrival which resolved with minimal fluids.Patient states he has fallen twice over the last day as well. Denies hitting his head or experiencing loss of consciousness. EKG showed no signs of acute ischemia. Chest x-ray showed no acute cardiopulmonary process. CT brain showed no acute intracranial process. Scrotal ultrasound revealed no signs of torsion. Good arterial flow to bilateral testes. Laboratory studies remarkable for a leukocytosis of 14.8, hemoglobin of 7.7. Patient is hyperkalemic to 5.5, BUN/creatinine 61/2.3. Is receiving IV fluid hydration at this time. Troponin is elevated to 0.148. Urinalysis is concerning for UTI. Occult blood is negative. Acetone is negative. Covid is negative. 01/06/2022 Patient is seen and evaluated in room at bedside; denies any complaint of chest pain or shortness of breath Vital signs are reviewed and oriented. Temperature 97.8, pulse 90, respiration 18 and blood pressure of 178/88 Evidence of myocardial injury was no evidence of ischemia; Consider conservative medical approach for the mildly abnormal troponin which is likely secondary to renal dysfunction; Increase the dose of hydralazine for better blood pressure control Add carvedilol to the current medical regimen; Continue anticoagulation for the stroke; echocardiogram is ordered and pending patient remains on IV antibiotics; for UTI; urine culture and blood cultures are pending Objective - Vital Signs Vital signs: Vital Signs Temp 97.6 F 01/06/22 08:46 Pulse 86 01/06/22 08:46 Resp 18 01/06/22 08:46 BP 163/74 01/06/22 08:46 Pulse Ox 97 01/06/22 08:46 FiO2 Intake & Output 01/05/22 01/06/22 01/06/22 18:59 06:59 18:59 Intake Total 360 Output Total 1200 950 Balance -840 -950 Weight 89 kg Intake: Oral 360 Output: Urine 1200 950 Other: Voiding Method Indwelling Catheter Indwelling Catheter Indwelling Catheter - Exam General: Appears in mild distress. HEAD: Normal with no signs of head trauma. EYES: PERRLA, EOMI, conjunctiva normal, no discharge. Pupils are 3 mm and equal bilaterally. ENT: Hearing grossly intact, normal oropharynx. Dry mucous membranes. RESPIRATORY: Clear breath sounds bilaterally. No wheezes, rales, or rhonchi. No respiratory distress. Mild hypoxia on room air to 91%. C/V: Regular rate and rhythm. S1 and S2 auscultated, no edema, peripheral pulses 2+ and intact throughout ABD: Abd is soft, nontender, nondistended : Penis and testicles are unremarkable. No obvious lesions or skin changes. Scrotum is soft. Some relief in pain with lifting of both testicles. Relatively unremarkable exam. Rosado is in place. EXT: Normal range of motion, no obvious deformity SKIN: No rashes or lesions observed on exposed skin. Covered in yellow emesis. NEURO: Alert and oriented 4. At his normal baseline with left-sided paralysis. No focal deficits. GCS of 15. - Labs CBC & Chem 7: 01/06/22 06:28 01/06/22 06:28 Labs: Abnormal Lab Results - Last 24 Hours (Table) 01/05/22 01/05/22 01/05/22 Range/Units 09:23 09:23 09:23 RBC (4.30-5.90) m/uL Hgb (13.0-17.5) gm/dL Hct (39.0-53.0) % Lymphocytes # (1.0-4.8) k/uL BUN (9-20) mg/dL Creatinine (0.66-1.25) mg/dL Glucose (74-99) mg/dL POC Glucose (mg/dL) (70-110) mg/dL Calcium (8.4-10.2) mg/dL Iron 9 L 9 L (65-175) ug/dL TIBC 223 L (228-460) ug/dL % Saturation 4.13 L (15.00-50.00) Transferrin 159.0 L (204.0-354.0) mg/dL Total Protein (PEP) 5.0 L (6.2-8.2) g/dL 01/05/22 01/05/22 01/05/22 Range/Units 11:34 16:22 20:13 RBC (4.30-5.90) m/uL Hgb (13.0-17.5) gm/dL Hct (39.0-53.0) % Lymphocytes # (1.0-4.8) k/uL BUN (9-20) mg/dL Creatinine (0.66-1.25) mg/dL Glucose (74-99) mg/dL POC Glucose (mg/dL) 143 H 155 H 135 H (70-110) mg/dL Calcium (8.4-10.2) mg/dL Iron (65-175) ug/dL TIBC (228-460) ug/dL % Saturation (15.00-50.00) Transferrin (204.0-354.0) mg/dL Total Protein (PEP) (6.2-8.2) g/dL 01/06/22 01/06/22 01/06/22 Range/Units 06:21 06:28 06:28 RBC 2.76 L (4.30-5.90) m/uL Hgb 7.6 L (13.0-17.5) gm/dL Hct 24.3 L (39.0-53.0) % Lymphocytes # 0.7 L (1.0-4.8) k/uL BUN 36 H (9-20) mg/dL Creatinine 2.32 H (0.66-1.25) mg/dL Glucose 116 H (74-99) mg/dL POC Glucose (mg/dL) 133 H (70-110) mg/dL Calcium 7.9 L (8.4-10.2) mg/dL Iron (65-175) ug/dL TIBC (228-460) ug/dL % Saturation (15.00-50.00) Transferrin (204.0-354.0) mg/dL Total Protein (PEP) (6.2-8.2) g/dL Microbiology - Last 24 Hours (Table) 01/04/22 09:55 Urine Culture - Final Urine,Voided Klebsiella pneumoniae 01/04/22 12:00 Blood Culture - Preliminary Blood No Growth after 24 hours 01/04/22 12:00 Blood Culture - Preliminary Blood No Growth after 24 hours Assessment and Plan Assessment: 1. Elevated troponin - Patient has been placed on IV heparin from ED; we will continue per protocol; continue with aspirin, statins; recommend 2-D echo; monitor EKG and trend troponin - Cardiology is consulted for further recommendations 2. Nausea/vomiting/dehydration; patient has placed on normal saline at rate of 100 mL an hour; we will monitor strict OPAL's; symptomatic treatment for nausea and vomiting 3. UTI; Rocephin 1 g IV daily; blood culture and urine cultures obtained. Plans to make further adjustments in antibiotics once culture results are available 4. Acute on chronic kidney disease; patient has been placed on IV fluid hydration; monitor strict OPAL's, daily weights, renal function and electrolytes; avoid nephrotoxins and hypotension 5. Hyperkalemia; likely related to acute on chronic renal injury; we will monitor electrolytes closely with plans for further treatment if potassium level continues to trend up 6. Hypertension; takes hydralazine 50 mg by mouth twice a day 7. Hypothyroidism; patient is currently not on any thyroid replacement therapy 8. Diabetes mellitus type 2; continue home regimen; monitor Accu-Cheks every CHF with insulin sliding scale DVT prophylaxis; SCDs/IV heparin CODE STATUS; full code
[2022-01-06 16:51] LABS: Glucose,Whole Blood 103 mg/dL (70-110)
[2022-01-06 19:50] LABS: Glucose,Whole Blood 137 mg/dL (70-110)
[2022-01-06] MEDS: ATORVASTATIN 40 MG TAB PO SCH (20:06)
[2022-01-07 06:17] LABS: Glucose,Whole Blood 68 mg/dL (70-110)
[2022-01-07] MEDS: PANTOPRAZOLE 40 MG TABLET PO SCH (06:28)
[2022-01-07] MEDS: METHYLPHENIDATE HCL 10 MG TAB PO SCH ×2 (06:28→17:16)
[2022-01-07] MEDS: carvediloL 3.125 MG TAB PO SCH (06:28)
[2022-01-07 06:44] LABS: Basophils % (A) 0 %; Eosinophils # (A) 0.3 k/uL (0-0.7); Eosinophils % (A) 4 %; HCT 23.5 % (39.0-53.0); HGB 7.4 gm/dL (13.0-17.5); Hypochromasia Slight; Lymphocytes # (A) 0.9 k/uL (1.0-4.8); Lymphocytes % (A) 10 %; MCH 27.5 pg (25.0-35.0); MCHC 31.5 g/dL (31.0-37.0); MCV 87.3 fL (80.0-100.0); Mean Platelet Volume 6.9; Monocytes # (A) 0.6 k/uL (0-1.0); Monocytes % (A) 7 %; Neutrophils # (A) 6.8 k/uL (1.3-7.7); Neutrophils % (A) 77 %; Platelet Count 280 k/uL (150-450); RBC 2.69 m/uL (4.30-5.90); RDW 13.8 % (11.5-15.5); WBC 8.8 k/uL (3.8-10.6)
[2022-01-07 07:25] LABS: Potassium 4.4 mmol/L (3.5-5.1)
[2022-01-07 07:48] LABS: Glucose,Whole Blood 111 mg/dL (70-110)
[2022-01-07] MEDS: VENLAFAXINE HCL ER 75 MG CAP PO SCH (08:45)
[2022-01-07] MEDS: hydrALAZINE HCL 50 MG TAB PO SCH ×2 (08:45→21:20)
[2022-01-07] MEDS: PILOCARPINE 5 MG TAB PO SCH ×3 (08:45→21:20)
[2022-01-07] MEDS: BENZTROPINE MESYLATE 0.5 MG TAB PO SCH ×3 (08:45→21:20)
[2022-01-07] MEDS: INSULN ASP PRT/INSULIN ASPART 100 UNIT/ML 10 ML VIAL SQ SCH ×2 (08:46→16:56)
[2022-01-07] MEDS: buPROPion SR 150 MG TABLET.ER PO SCH ×2 (08:46→21:20)
[2022-01-07] MEDS: GABAPENTIN 100 MG CAP PO SCH ×3 (08:46→21:20)
[2022-01-07] MEDS: TAMSULOSIN 0.4 MG CAP.ER.24H PO SCH (08:46)
[2022-01-07] MEDS: SODIUM FERRIC GLUCONAT-SUCROSE 125 MG in SODIUM CHLORIDE 0.9% 100 ML IVPB SCH (09:38)
[2022-01-07] MEDS: PIOGLITAZONE 15 MG TAB PO SCH (09:51)
--- NOTE | 2022-01-07 11:04 | P.PN ---
Subjective 51-year-old male with past medical history remarkable for prior stroke with residual left-sided paralysis on eliquis, chronic severe vertigo, diabetes, hypertension presents emergency Department over concern for recurrent episodes of nausea, vomiting, vertigo symptoms, as well as falls at home. Does have a history of falls. States he feels like the room is spinning, which resulted in multiple episodes since last night of emesis which was yellow in color. He is covered in yellow emesis at this time throughout all over himself. States this is related to the room spinning sensation. Denies chest pain, shortness breath, abdominal pain. States he did have a Rosado catheter placed recently, and since that time has been having bilateral testicular discomfort and pain. Believes it has been in for at least a week. Denies any hematemesis. Denies any hematochezia or melena. No diarrhea. Believes he may have some mild hematuria. Does have a history of anemia requiring transfusions. Denies headache. Denies any new motor or sensory deficits. Presents for further evaluation at this time. Patient was mildly hypotensive upon arrival which resolved with minimal fluids.Patient states he has fallen twice over the last day as well. Denies hitting his head or experiencing loss of consciousness. EKG showed no signs of acute ischemia. Chest x-ray showed no acute cardiopulmonary process. CT brain showed no acute intracranial process. Scrotal ultrasound revealed no signs of torsion. Good arterial flow to bilateral testes. Laboratory studies remarkable for a leukocytosis of 14.8, hemoglobin of 7.7. Patient is hyperkalemic to 5.5, BUN/creatinine 61/2.3. Is receiving IV fluid hydration at this time. Troponin is elevated to 0.148. Urinalysis is concerning for UTI. Occult blood is negative. Acetone is negative. Covid is negative. 01/06/2022 Patient is seen and evaluated in room at bedside; denies any complaint of chest pain or shortness of breath Vital signs are reviewed and oriented. Temperature 97.8, pulse 90, respiration 18 and blood pressure of 178/88 Evidence of myocardial injury was no evidence of ischemia; Consider conservative medical approach for the mildly abnormal troponin which is likely secondary to renal dysfunction; Increase the dose of hydralazine for better blood pressure control Add carvedilol to the current medical regimen; Continue anticoagulation for the stroke; echocardiogram is ordered and pending patient remains on IV antibiotics; for UTI; urine culture and blood cultures are pending 01/07/2022 Patient is awake and alert and states that his dyspnea is improved as well as hematuria. He has a Rosado catheter with yellow urine. His weakness improved and patient he wants to be discharged today. Explained for the patient and he agrees No more dizziness, no nausea vomiting and he tolerates diet well. Currently he is on home dose of eliquis, and ceftriaxone PT/OT are pending Objective - Vital Signs Vital signs: Vital Signs Temp 98.6 F 01/07/22 09:05 Pulse 86 01/07/22 09:05 Resp 16 01/07/22 09:05 BP 144/71 01/07/22 09:05 Pulse Ox 97 01/07/22 09:05 FiO2 Intake & Output 01/06/22 01/07/22 01/07/22 18:59 06:59 18:59 Intake Total 358 222 118 Output Total 1200 1150 Balance -842 -928 118 Weight 87 kg Intake: Oral 358 222 118 Output: Urine 1200 1150 Other: Voiding Method Indwelling Catheter Indwelling Catheter - Exam GENERAL: The patient is alert and oriented x3, not in any acute distress. Well developed, well nourished. HEENT: Pupils are round and equally reacting to light. EOMI. No scleral icterus. No conjunctival pallor. Normocephalic, atraumatic. No pharyngeal erythema. No thyromegaly. CARDIOVASCULAR: S1 and S2 present. No murmurs, rubs, or gallops. PULMONARY: Chest is clear to auscultation, no wheezing or crackles. ABDOMEN: Soft, nontender, nondistended, normoactive bowel sounds. No palpable organomegaly. MUSCULOSKELETAL: No joint swelling or deformity. EXTREMITIES: No cyanosis, clubbing, or pedal edema. -NEUROLOGICAL: Gross neurological examination did not reveal any focal chronic left hemiparesis SKIN: No rashes. no petechiae. - Labs CBC & Chem 7: 01/07/22 05:58 01/07/22 05:58 Labs: Abnormal Lab Results - Last 24 Hours (Table) 01/06/22 01/07/22 01/07/22 Range/Units 19:49 05:58 05:58 RBC 2.69 L (4.30-5.90) m/uL Hgb 7.4 L (13.0-17.5) gm/dL Hct 23.5 L (39.0-53.0) % Lymphocytes # 0.9 L (1.0-4.8) k/uL BUN 34 H (9-20) mg/dL Creatinine 2.16 H (0.66-1.25) mg/dL Glucose 68 L (74-99) mg/dL POC Glucose (mg/dL) 137 H (70-110) mg/dL Calcium 8.0 L (8.4-10.2) mg/dL 01/07/22 01/07/22 Range/Units 06:15 07:37 RBC (4.30-5.90) m/uL Hgb (13.0-17.5) gm/dL Hct (39.0-53.0) % Lymphocytes # (1.0-4.8) k/uL BUN (9-20) mg/dL Creatinine (0.66-1.25) mg/dL Glucose (74-99) mg/dL POC Glucose (mg/dL) 68 L 111 H (70-110) mg/dL Calcium (8.4-10.2) mg/dL Microbiology - Last 24 Hours (Table) 01/04/22 12:00 Blood Culture - Preliminary Blood No Growth after 48 hours 01/04/22 12:00 Blood Culture - Preliminary Blood No Growth after 48 hours 01/04/22 09:55 Urine Culture - Final Urine,Voided Klebsiella pneumoniae Assessment and Plan Assessment: Dizziness with orthostatic hypotension and fall, present on admission Nausea vomiting Hematuria secondary to UTI with culture growing Klebsiella, improvement Acute kidney injury secondary to hypertension Anemia of chronic disease Chronic kidney disease, stage III Elevated troponin with no evidence of acute coronary syndrome per esthetician facialist History of acute CVA with l chronic eft hemiparesis urinary retention status post Rosado catheter Plan: This is a pleasant 51 years old male who presents with dizziness, hypertension. Also with acute urinary tract infection secondary to Klebsiella UTI Continue with ceftriaxone Continue with Eliquis Continue with hydralazine and Coreg. Labs and medication were reviewed.. Continue same treatment. Continue with symptomatic treatment. Resume home medication. Monitor lytes and vitals. DVT and GI prophylaxis. Further recommendations as per clinical course of the patient DVT prophylaxis: Eliquis GI Prophylaxis: Ppi PT/OT: Pending
--- NOTE | 2022-01-07 11:35 | P.PN ---
Subjective patient is seen in follow for acute kidney injury. Renal function improving with IV hydration. Good urine output. No vomiting or diarrhea. hemodynamically stable. Serum creatinine at 2.1 from 2.3 yesterday Urine output at 2.3 L for 24 hours Objective - Vital Signs Vital signs: Vital Signs Temp 98 F 01/07/22 11:15 Pulse 86 01/07/22 09:05 Resp 17 01/07/22 11:15 BP 177/88 01/07/22 11:15 Pulse Ox 94 L 01/07/22 11:15 FiO2 Intake & Output 01/06/22 01/07/22 01/07/22 18:59 06:59 18:59 Intake Total 358 222 118 Output Total 1200 1150 Balance -842 -928 118 Weight 87 kg Intake: Oral 358 222 118 Output: Urine 1200 1150 Other: Voiding Method Indwelling Catheter Indwelling Catheter Indwelling Catheter - Exam Awake, comfortable, not in any acute distress Examination of the heart S1 and S2 Examination the lungs bilateral breath sounds are heard Abdomen is soft nontender Examination of the lower extremity shows no evidence of edema 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 - Labs CBC & Chem 7: 01/07/22 05:58 01/07/22 05:58 Labs: Abnormal Lab Results - Last 24 Hours (Table) 01/06/22 01/07/22 01/07/22 Range/Units 19:49 05:58 05:58 RBC 2.69 L (4.30-5.90) m/uL Hgb 7.4 L (13.0-17.5) gm/dL Hct 23.5 L (39.0-53.0) % Lymphocytes # 0.9 L (1.0-4.8) k/uL BUN 34 H (9-20) mg/dL Creatinine 2.16 H (0.66-1.25) mg/dL Glucose 68 L (74-99) mg/dL POC Glucose (mg/dL) 137 H (70-110) mg/dL Calcium 8.0 L (8.4-10.2) mg/dL 01/07/22 01/07/22 Range/Units 06:15 07:37 RBC (4.30-5.90) m/uL Hgb (13.0-17.5) gm/dL Hct (39.0-53.0) % Lymphocytes # (1.0-4.8) k/uL BUN (9-20) mg/dL Creatinine (0.66-1.25) mg/dL Glucose (74-99) mg/dL POC Glucose (mg/dL) 68 L 111 H (70-110) mg/dL Calcium (8.4-10.2) mg/dL Microbiology - Last 24 Hours (Table) 01/04/22 12:00 Blood Culture - Preliminary Blood No Growth after 48 hours 01/04/22 12:00 Blood Culture - Preliminary Blood No Growth after 48 hours 01/04/22 09:55 Urine Culture - Final Urine,Voided Klebsiella pneumoniae Assessment and Plan Assessment: 1. Acute kidney injury mostly prerenal secondary to hypotension. Improved with IV hydration.creatinine was 2.83 on admission and is 2. 1 today. no hydronephrosis noted on kidney ultrasound. 2. Chronic kidney disease stage IIIB/4. Creatinine in August 2020 was 1.5 but this year creatinine has been in the range of 2-2.7. Etiology is diabetic kidney disease. 3. Anemia of chronic kidney disease. iron deficiency noted. 4. Diabetes mellitus. 5. Urinary retention. Currently has a Rosado catheter. On Flomax. Follows with urology outpatient. 6. History of CVA with left-sided paralysis. 7. UTI on antibiotics. urine culture positive for Klebsiella pneumonia Plan: Follow-up as outpatient for CK D Continue to hold for sego for now Encourage increased oral intake Avoid hypotension
[2022-01-07 11:50] LABS: Glucose,Whole Blood 110 mg/dL (70-110)
--- NOTE | 2022-01-07 13:48 | P.PN ---
Subjective Progress Note Date: 01/07/22 HISTORY OF PRESENT ILLNESS: This is an unfortunate 51-year-old gentleman with a past medical history significant for stroke with residual left-sided weakness diagnosed in 2020 as we ll as hypertension and dyslipidemia and diabetes and chronic kidney disease presented to the hospital not feeling well. He is somewhat poor historian. He stated that he lives in an apartment with his mother. He has not been feeding well where he was experiencing symptoms of generalized weakness and fatigue associated with dizziness and lightheadedness. No symptoms of chest pain or chest discomfort and no increasing in the shortness of breath. He presented to the emergency department and we consulted to see the patient because troponin was checked and came in to be slightly abnormal. Please note that the patient does have chronic kidney disease. He underwent cardiac workup including EKG showing sinus rhythm with no significant ST or T-wave abnormalities. Beside that clinically he never had any symptoms of chest pain or chest discomfort or any shortness of breath. He also underwent a workup which showed possible UTI and currently he is on antibiotic. He was seen by our service in 2020 where he underwent further investigation for the stroke including transesophageal echocardiogram which revealed no cardiac source of embolization. Also he underwent an echocardiogram which revealed normal LV function with no significant valvular abnormalities. Clinically he is stable in terms of symptoms but pressure is elevated. I'm going to restart him back on the current dose of hydralazine he was receiving at home. Also start the patient back on statin. Beside that he is on anticoagulation which was restarted already. I would consider conservative medical approach for the mildly abnormal troponin January [id number] The patient was seen this morning. He states overall "I feel better". He denies any chest pain or chest discomfort or shortness of breath. The blood pressure continues to be elevated. I'm going to increase the dose of hydralazine to 75 mg by mouth 3 times a day. Beside that add carvedilol 3.125 mg by mouth twice a day to the current medical regimen. Continue considering conservative medical approach regarding the mildly abnormal troponin. 01/07/2022 Patient examined this morning at the bedside. Patient denies chest pain or pressure. He denies shortness of breath. Echocardiogram performed revealed ejection fraction 55-60%. Patient's blood pressures have improved today. PHYSICAL EXAM: VITAL SIGNS: Reviewed. GENERAL: Well-developed in no acute distress. NECK: Supple. No JVD or thyromegaly LUNGS: Respirations even and unlabored. Lungs essentially clear to auscultation bilaterally. HEART: Regular rate and rhythm. S1 and S2 heard. EXTREMITIES: Normal range of motion. No clubbing or cyanosis. Peripheral pulses intact. No lower extremity edema ASSESSMENT: Change in mental status Urinary tract infection History of stroke with residual left-sided weakness Chronic kidney disease Evidence of myocardial injury was no evidence of ischemia Hypertension Multiple comorbid conditions PLAN: Continue current cardiac medications Increase carvedilol to 6.25 mg twice a day for a total blood pressure control Recommend resuming Eliquis for hx of CVA. We will defer to internal medicine Patient is currently stable from a cardiac standpoint. We will sign off. Please reconsult if needed. Nurse practitioner note has been reviewed by physician. Signing provider agrees with the documented findings, assessment, and plan of care. Objective - Vital Signs Vital signs: Vital Signs Temp 98 F 01/07/22 11:15 Pulse 86 01/07/22 09:05 Resp 17 01/07/22 11:15 BP 177/88 01/07/22 11:15 Pulse Ox 94 L 01/07/22 11:15 FiO2 Intake & Output 01/06/22 01/07/22 01/07/22 18:59 06:59 18:59 Intake Total 358 222 118 Output Total 1200 1150 Balance -842 -928 118 Weight 87 kg Intake: Oral 358 222 118 Output: Urine 1200 1150 Other: Voiding Method Indwelling Catheter Indwelling Catheter Indwelling Catheter - Labs CBC & Chem 7: 01/07/22 05:58 01/07/22 05:58 Labs: Abnormal Lab Results - Last 24 Hours (Table) 01/06/22 01/07/22 01/07/22 Range/Units 19:49 05:58 05:58 RBC 2.69 L (4.30-5.90) m/uL Hgb 7.4 L (13.0-17.5) gm/dL Hct 23.5 L (39.0-53.0) % Lymphocytes # 0.9 L (1.0-4.8) k/uL BUN 34 H (9-20) mg/dL Creatinine 2.16 H (0.66-1.25) mg/dL Glucose 68 L (74-99) mg/dL POC Glucose (mg/dL) 137 H (70-110) mg/dL Calcium 8.0 L (8.4-10.2) mg/dL 01/07/22 01/07/22 Range/Units 06:15 07:37 RBC (4.30-5.90) m/uL Hgb (13.0-17.5) gm/dL Hct (39.0-53.0) % Lymphocytes # (1.0-4.8) k/uL BUN (9-20) mg/dL Creatinine (0.66-1.25) mg/dL Glucose (74-99) mg/dL POC Glucose (mg/dL) 68 L 111 H (70-110) mg/dL Calcium (8.4-10.2) mg/dL Microbiology - Last 24 Hours (Table) 01/04/22 12:00 Blood Culture - Preliminary Blood No Growth after 48 hours 01/04/22 12:00 Blood Culture - Preliminary Blood No Growth after 48 hours 01/04/22 09:55 Urine Culture - Final Urine,Voided Klebsiella pneumoniae
[2022-01-07 14:32] LABS: C-ANCA <1:20 Titer (<1:20)
[2022-01-07] MEDS: APIXABAN 5 MG TAB PO SCH ×2 (14:44→21:20)
[2022-01-07] MEDS ORDERED: LORazepam 1 MG/0.5 ML VIAL IV STA (14:57)
[2022-01-07 16:43] LABS: Glucose,Whole Blood 109 mg/dL (70-110)
[2022-01-07] MEDS: carvediloL 6.25 MG TAB PO SCH (17:16)
[2022-01-07 20:01] LABS: Glucose,Whole Blood 121 mg/dL (70-110)
[2022-01-07] MEDS: ATORVASTATIN 40 MG TAB PO SCH (21:20)
[2022-01-08 06:01] LABS: Glucose,Whole Blood 147 mg/dL (70-110)
[2022-01-08] MEDS: carvediloL 6.25 MG TAB PO SCH (07:04)
[2022-01-08] MEDS: PANTOPRAZOLE 40 MG TABLET PO SCH (07:04)
[2022-01-08] MEDS: METHYLPHENIDATE HCL 10 MG TAB PO SCH (07:05)
[2022-01-08 08:21] LABS: Glucose,Whole Blood 118 mg/dL (70-110)
[2022-01-08] MEDS: SODIUM FERRIC GLUCONAT-SUCROSE 125 MG in SODIUM CHLORIDE 0.9% 100 ML IVPB SCH (08:23)
[2022-01-08] MEDS: GABAPENTIN 100 MG CAP PO SCH (08:24)
[2022-01-08] MEDS: APIXABAN 5 MG TAB PO SCH (08:24)
[2022-01-08] MEDS: INSULN ASP PRT/INSULIN ASPART 100 UNIT/ML 10 ML VIAL SQ SCH (08:24)
[2022-01-08] MEDS: hydrALAZINE HCL 50 MG TAB PO SCH (08:24)
[2022-01-08] MEDS: TAMSULOSIN 0.4 MG CAP.ER.24H PO SCH (08:24)
[2022-01-08] MEDS: BENZTROPINE MESYLATE 0.5 MG TAB PO SCH (08:25)
[2022-01-08] MEDS: buPROPion SR 150 MG TABLET.ER PO SCH (08:25)
[2022-01-08] MEDS: PIOGLITAZONE 15 MG TAB PO SCH (08:25)
[2022-01-08] MEDS: PILOCARPINE 5 MG TAB PO SCH (08:25)
[2022-01-08] MEDS: VENLAFAXINE HCL ER 75 MG CAP PO SCH (08:25)
--- NOTE | 2022-01-08 11:52 | P.PN ---
Subjective patient is seen in follow for acute kidney injury. Renal function improving with IV hydration. Good urine output. No vomiting or diarrhea. hemodynamically stable. Serum creatinine at 2.1 from yesterday Urine output at 2.9 L for 24 hours Not on any IV fluids on diuretics Maintained on IV iron Objective - Vital Signs Vital signs: Vital Signs Temp 98.9 F 01/08/22 08:22 Pulse 82 01/08/22 08:22 Resp 16 01/08/22 08:22 BP 143/77 01/08/22 08:22 Pulse Ox 91 L 01/08/22 08:22 FiO2 Intake & Output 01/07/22 01/08/22 01/08/22 18:59 06:59 18:59 Intake Total 354 550 118 Output Total 2049 925 Balance -1696 -375 118 Intake: IV 10 Invasive Line 2 10 Oral 354 540 118 Output: Urine 2049 925 Other: Voiding Method Indwelling Catheter Indwelling Catheter Indwelling Catheter # Voids 1 # Bowel Movements 1 - Exam Awake, comfortable, not in any acute distress Examination of the heart S1 and S2 Examination the lungs bilateral breath sounds are heard Abdomen is soft nontender Examination of the lower extremity shows no evidence of edema 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 Acute kidney injury mostly prerenal secondary to hypotension. Improved with IV hydration.creatinine was 2.83 on admission and is 2.1 yesterday. No hydronephrosis noted on kidney ultrasound. 2. Chronic kidney disease stage IIIB/4. Creatinine in August 2020 was 1.5 but this year creatinine has been in the range of 2-2.7. Etiology is diabetic kidney disease. 3. Anemia of chronic kidney disease. iron deficiency noted. 4. Diabetes mellitus. 5. Urinary retention. Currently has a Rosado catheter. On Flomax. Follows with urology outpatient. 6. History of CVA with left-sided paralysis. 7. UTI on antibiotics. urine culture positive for Klebsiella pneumonia Plan: Follow-up as outpatient for CK D Continue to hold farxiga for now Encourage increased oral intake Avoid hypotension
[2022-01-08] MEDS: HYDROcodone/APAP 7.5-325MG 1 EACH TAB PO PRN (12:43)
[2022-01-08 15:22] VITALS: BP 140/71; PULSE 75; RESP 17; TEMP 98
--- NOTE | 2022-01-08 20:48 | P.DS ---
Providers Date of admission: 01/04/22 12:14 Attending physician: [place] MD Consults: 01/04/22 14:42 Consult Physician Routine Consulting Provider: Marcus Reyes Consult Reason/Comments: hematuria Do you want consulting provider notified?: Yes Primary care physician: Justine Guillen Hospital Course: Diagnoses: Dizziness with orthostatic hypotension and fall, present on admission Nausea vomiting Hematuria secondary to UTI with culture growing Klebsiella, improvement Acute kidney injury secondary to hypertension Anemia of chronic disease Chronic kidney disease, stage III Elevated troponin with no evidence of acute coronary syndrome per wet process operator History of acute CVA with l chronic eft hemiparesis urinary retention status post Wilkinson catheter Hospital course: 51-year-old male with past medical history remarkable for prior stroke with residual left-sided paralysis on eliquis, chronic severe vertigo, diabetes, hypertension presents emergency Department over concern for recurrent episodes of nausea, vomiting, dizziness symptoms, as well as falls at home. Does have a history of falls. On admission patient has evidence of urinary tract infection with acute kidney injury, urine culture showing sensitive klebsiella and patient symptoms improved and he will be discharged on short course of oral antibiotics. His creatinine on admission 2.3, 2.1 today. Baseline 2.4-2.8. Patient with evidence of acute kidney injury on admission secondary to hypertension which is improved. By the time I saw the patient is a day and today his symptoms of dizziness has resolved. No more nausea vomiting and patient tolerates diet well. Hematuria improved patient has Wilkinson catheter for urinary retention with recommendation urologist Dr. Roche as an outpatient if patient agrees. Wilkinson is draining yellow urine. Hematuria resolved. Patient with evidence of anemia of chronic disease. Mash Grinder evaluated the patient as well as harbor tug captain for elevated troponin and kidney disease. Patient showed interval improvement with treatment and he is back to baseline. Projection fraction 55-60% Patient denies any chest pain or dyspnea. No headache or dizziness. No new weakness or numbness. No diarrhea or vomiting. Patient was cleared for discharge by wet process operator and harbor tug captain. Problems and management plan were discussed with the patient and he verbalized understanding and acceptance Patient was found stable and can be discharged home however he needs follow-up as an outpatient. Patient was instructed to follow up with PCP Dr. Guillen within one week and patient agrees Patient was instructed to follow up with wet process operator Dr. Edwards in one week and he agrees. With harbor tug captain Dr. Price on 01/10 and patient agrees and with urologist Dr. Roche in 7-10 days and he agrees Physical exam Gen: patient is a AAOx3, no distress CVS: S1-S2, RRR, no murmur Lungs: B/L CTA, no wheezing -Abdomen: soft, no distention, no tenderness, positive bowel sounds. Wilkinson catheter in place Extremity: no leg edema or induration -Neuro: No new focal neurological deficit. Cranial nerves are grossly intact. Chronic left hemiparesis. Right-sided strength 5/5 and sensation intact. Meningeal signs are absent. Time spent more than 35 minutes Patient Condition at Discharge: Stable Plan - Discharge Summary Discharge Rx Participant: No New Discharge Prescriptions: New cefUROXime axetiL [Cefuroxime] 500 mg PO BID 7 Days #14 tab carvediloL [Coreg] 6.25 mg PO BID-W/MEALS #60 tab Atorvastatin [Lipitor] 40 mg PO HS #30 tab Insuln Asp Prt/Insulin Aspart [NovoLOG MIX 70-30 VIAL] 18 unit SQ AC-BID #10 ml hydrALAZINE HCL [Apresoline] 75 mg PO BID #90 tab Continue Venlafaxine HCl [Effexor XR] 225 mg PO DAILY Omeprazole 40 mg PO DAILY buPROPion HCL [Wellbutrin SR] 150 mg PO BID Methylphenidate HCl 20 mg PO BID Pioglitazone [Actos] 15 mg PO DAILY Pilocarpine [Salagen] 5 mg PO TID Tamsulosin HCl [Flomax] 0.4 mg PO DAILY Apixaban [Eliquis] 5 mg PO BID Gabapentin [Neurontin] 400 mg PO TID Benztropine Mesylate [Cogentin] 1.5 mg PO TID polyethylene glycoL 3350 [Miralax] 17 gm PO DAILY Discontinued Insulin NPH Hum/Reg Insulin Hm [humuLIN 70/30 Kwikpen] 20 unit SQ BID Hydrocodone/Acetaminophen [[place] 7.5-325] 1 tab PO TID PRN PRN Reason: Pain Rosuvastatin [Crestor] 20 mg PO HS hydrALAZINE HCL [Apresoline] 50 mg PO BID Dulaglutide [Trulicity] 1.5 mg SQ Q7D Midodrine HCl [ProAmatine] 10 mg PO TID Dapagliflozin Propanediol [Farxiga] 10 mg PO DAILY No Action Ferrlecit 62.5mg/5ml 125 mg IV DIRECTED Discharge Medication List Omeprazole 40 mg PO DAILY 03/27/20 [History] Venlafaxine HCl [Effexor XR] 225 mg PO DAILY 03/27/20 [History] buPROPion HCL [Wellbutrin SR] 150 mg PO BID 03/27/20 [History] Methylphenidate HCl 20 mg PO BID 06/29/20 [History] Benztropine Mesylate [Cogentin] 1.5 mg PO TID 09/25/21 [History] Gabapentin [Neurontin] 400 mg PO TID 09/25/21 [History] Pioglitazone [Actos] 15 mg PO DAILY 09/25/21 [History] Apixaban [Eliquis] 5 mg PO BID 01/04/22 [History] Ferrlecit 62.5mg/5ml 125 mg IV DIRECTED 01/04/22 [History] Pilocarpine [Salagen] 5 mg PO TID 01/04/22 [History] Tamsulosin HCl [Flomax] 0.4 mg PO DAILY 01/04/22 [History] polyethylene glycoL 3350 [Miralax] 17 gm PO DAILY 01/04/22 [History] Atorvastatin [Lipitor] 40 mg PO HS #30 tab 01/08/22 [Rx] Insuln Asp Prt/Insulin Aspart [NovoLOG MIX 70-30 VIAL] 18 unit SQ AC-BID #10 ml 01/08/22 [Rx] carvediloL [Coreg] 6.25 mg PO BID-W/MEALS #60 tab 01/08/22 [Rx] cefUROXime axetiL [Cefuroxime] 500 mg PO BID 7 Days #14 tab 01/08/22 [Rx] hydrALAZINE HCL [Apresoline] 75 mg PO BID #90 tab 01/08/22 [Rx] Follow up Appointment(s)/Referral(s): Justine Guillen MD [Primary Care Provider] - 1-2 days Jhony Mullen MD [STAFF PHYSICIAN] - 1 Week Marcus Reyes DO [STAFF PHYSICIAN] - 01/10/22 10:00 am Khang De Jesus MD [STAFF PHYSICIAN] - 10 Days (urologist for your urine retension and management of your wilkinson urine catheter) Patient Instructions/Handouts: Urinary Tract Infection in Men (DC) Activity/Diet/Wound Care/Special Instructions: Heart healthy diet Activity is restricted till you see your doctor We recommend to check her glucose 4 times a day, before each meal and at bedtime, keep the results in a log book and to bring into her Doctor on her appointment date if your glucose less than 70 or more than 400, then call 911 and come to emergency room Discharge Disposition: HOME WITH HOME HEALTH SERVICES
== END 2022-01-08 16:27 | disposition home health service (06) | DRG 690 ==
LOC: EC 08:23 → 3SCARD 12:14
PROVIDERS: ADMIT Internal Medicine; ATTEND Internal Medicine
DX: N39.0 Urinary tract infection, site not specified (principal); N17.9 Acute kidney failure, unspecified; I13.0 Hypertensive heart and chronic kidney disease with heart failure and stage 1 through stage 4 chronic kidney disease, or unspecified chronic kidney disease; I69.354 Hemiplegia and hemiparesis following cerebral infarction affecting left non-dominant side; I24.8 Other forms of acute ischemic heart disease; N18.32 Chronic kidney disease, stage 3b; E11.43 Type 2 diabetes mellitus with diabetic autonomic (poly)neuropathy; R33.8 Other retention of urine; I95.1 Orthostatic hypotension; N40.1 Benign prostatic hyperplasia with lower urinary tract symptoms; R29.6 Repeated falls; G47.33 Obstructive sleep apnea (adult) (pediatric); K31.84 Gastroparesis; Z20.822 Contact with and (suspected) exposure to COVID-19; E86.0 Dehydration; B96.1 Klebsiella pneumoniae [K. pneumoniae] as the cause of diseases classified elsewhere; E11.22 Type 2 diabetes mellitus with diabetic chronic kidney disease; D63.1 Anemia in chronic kidney disease; E78.5 Hyperlipidemia, unspecified; F31.9 Bipolar disorder, unspecified; H40.9 Unspecified glaucoma; F41.9 Anxiety disorder, unspecified; E03.9 Hypothyroidism, unspecified; E87.5 Hyperkalemia; Z79.01 Long term (current) use of anticoagulants; Z79.4 Long term (current) use of insulin; Z79.84 Long term (current) use of oral hypoglycemic drugs; Z79.899 Other long term (current) drug therapy; Z91.81 History of falling; Z91.011 Allergy to milk products; Z86.14 Personal history of Methicillin resistant Staphylococcus aureus infection
CPT/HCPCS: 36415; 70450; 71046; 76770; 76870; 80048; 80053; 80074; 81001; 82009; 82272; 82728; 83540; 83550; 83605; 83735; 84165; 84484; 85025; 85610; 85730; 86038; 86160; 86162; 86225; 86255; 86334; 86335; 86850; 86900; 86901; 87040; 87077; 87086; 87186; 87635; 93005; 93306; 93975; 94760; 96361; 96365; 96375; 99285

== ENCOUNTER 2022-01-27 17:45 | Inpatient (IN) | payer OTHER ==
[2022-01-27] MEDS ORDERED: SODIUM CHLORIDE 0.9% 1,000 ML IV STA ×2 (17:59→19:35)
[2022-01-27 18:11] LABS: Glucose,Whole Blood 68 mg/dL (70-110)
[2022-01-27] MEDS ORDERED: DEXTROSE 50% SYRINGE 50 ML IVP STA (18:25)
[2022-01-27 18:26] LABS: Basophils # (A) 0.1 k/uL (0-0.2); Basophils % (A) 1 %; Eosinophils # (A) 0.2 k/uL (0-0.7); Eosinophils % (A) 2 %; HCT 26.8 % (39.0-53.0); HGB 8.7 gm/dL (13.0-17.5); Hypochromasia Slight; Lymphocytes % (A) 13 %; MCH 27.5 pg (25.0-35.0); MCHC 32.5 g/dL (31.0-37.0); MCV 84.5 fL (80.0-100.0); Mean Platelet Volume 7.5; Monocytes # (A) 0.5 k/uL (0-1.0); Monocytes % (A) 6 %; Neutrophils # (A) 5.9 k/uL (1.3-7.7); Neutrophils % (A) 77 %; Platelet Count 284 k/uL (150-450); RBC 3.18 m/uL (4.30-5.90); RDW 14.4 % (11.5-15.5); WBC 7.8 k/uL (3.8-10.6)
--- NOTE | 2022-01-27 18:31 | XR ---
EXAMINATION TYPE: XR KUB DATE OF EXAM: 01/27/2022 COMPARISON: 05/17/2021 HISTORY: Abdominal pain TECHNIQUE: 2 view supine FINDINGS: There is no sign of intestinal obstruction or pneumoperitoneum. Fecal pattern is normal. No evidence of a mass. There is a device over the mid abdomen. No pathologic calcifications over the kidneys. Bony structures are intact. IMPRESSION: Nonacute abdomen.
[2022-01-27 18:36] LABS: Albumin 3.8 g/dL (3.5-5.0); Calcium 8.7 mg/dL (8.4-10.2); Potassium 4.3 mmol/L (3.5-5.1); Total Bilirubin 0.3 mg/dL (0.2-1.3); Total Protein 6.2 g/dL (6.3-8.2)
[2022-01-27 18:45] LABS: INR 1.1 (<1.2); Partial Thromboplastin Time 27.9 sec (22.0-30.0); Prothrombin Time 11.7 sec (9.0-12.0)
[2022-01-27 19:23] LABS: Glucose,Whole Blood 133 mg/dL (70-110)
[2022-01-27 19:23] LABS: Appearance,Urine Clear (Clear); Bacteria,Urine Occasional /hpf; Bilirubin,Urine Negative (Negative); Blood,Urine Large (Negative); Color,Urine Light Yellow; Glucose,Urine (UA) 4+ (Negative); Ketones,Urine Trace (Negative); Leukocyte Esterase,Urine Moderate (Negative); Mucus,Urine Rare /hpf; Nitrite,Urine Negative (Negative); PH, Urine 5.5 (5.0-8.0); Protein,Urine 3+ (Negative); RBC,Urine 9 /hpf (0-5); Specific Gravity,Urine 1.017 (1.001-1.035); Urobilinogen,Urine <2.0 mg/dL (<2.0); WBC,Urine 53 /hpf (0-5)
[2022-01-27] MEDS ORDERED: MORPHINE SULFATE 4 MG/ML SYRINGE IVP STA (19:36)
--- NOTE | 2022-01-27 20:20 | US ---
EXAMINATION TYPE: US mass soft tissue chest/back DATE OF EXAM: 01/27/2022 COMPARISON: NONE CLINICAL HISTORY: left upper abd mass. LUQ: 3.5 x 2.1 x 3.4cm complex vascular palpable mass IMPRESSION: There is fairly well marginated oval shaped complex mass with peripheral vascularity in t he area of concern in the left upper quadrant anteriorly. This could be a hemangioma. This does not a ppear to be a hernia sac.
--- NOTE | 2022-01-27 20:22 | US ---
EXAMINATION TYPE: US kidneys/renal and bladder DATE OF EXAM: 01/27/2022 COMPARISON: US 202101/04/2022 CLINICAL HISTORY: decreased urine output. EXAM MEASUREMENTS: Right Kidney: 12.0 x 5.2 x 6.7 cm Left Kidney: 12.2 x 5.7 x 6.1 cm Right Kidney: No hydronephrosis or masses seen Left Kidney: No hydronephrosis or masses seen Bladder: not distended, wilkinson catheter No adverse change. IMPRESSION: Urinary bladder was empty. There is Wilkinson catheter in the bladder. No evidence of renal mass or obstr uction.
--- NOTE | 2022-01-27 20:47 | ED ---
General Adult HPI - General Chief complaint: Urogenital Stated complaint: dehydration Time Seen by Provider: 01/27/22 17:54 Source: patient, family, EMS, RN notes reviewed, old records reviewed Mode of arrival: EMS Limitations: no limitations - History of Present Illness Initial comments: Patient is a 51-year-old male with past medical history remarkable for CVA with residual left-sided deficits, bladder dysfunction fully catheter, acid reflux, CK D, prostate disorder who presents emergency Department after being brought in by family for concern for dehydration. Patient has not been eating or drinking for multiple days. He refuses to say why. He does have some mild back discomfort. They're concerned for possible urinary issue. They have noticed decreased urine output over the last few days as well. No fevers or chills. No sick contacts. No coughing. Patient denies any chest pain, shortness of breath. Denies any nausea or vomiting. States he just does not feel like eating. Denies abdominal pain. He does have a a golf ball size mass over the left upper abdomen that is old for the patient but more irritated per family and patient. They're uncertain what is causing his current symptoms. Per patient's family, he does qualify for hospice but they're not interested at this time. - Related Data Home Medications Medication Instructions Recorded Confirmed Omeprazole 40 mg PO DAILY 03/27/20 01/04/22 Venlafaxine HCl [Effexor XR] 225 mg PO DAILY 03/27/20 01/04/22 buPROPion HCL [Wellbutrin SR] 150 mg PO BID 03/27/20 01/04/22 Methylphenidate HCl 20 mg PO BID 06/29/20 01/04/22 Benztropine Mesylate [Cogentin] 1.5 mg PO TID 09/25/21 01/04/22 Gabapentin [Neurontin] 400 mg PO TID 09/25/21 01/04/22 Pioglitazone [Actos] 15 mg PO DAILY 09/25/21 01/04/22 Apixaban [Eliquis] 5 mg PO BID 01/04/22 01/04/22 Ferrlecit 62.5mg/5ml 125 mg IV DIRECTED 01/04/22 01/04/22 Pilocarpine [Salagen] 5 mg PO TID 01/04/22 01/04/22 Tamsulosin HCl [Flomax] 0.4 mg PO DAILY 01/04/22 01/04/22 polyethylene glycoL 3350 [Miralax] 17 gm PO DAILY 01/04/22 01/04/22 Previous Rx's Medication Instructions Recorded Atorvastatin [Lipitor] 40 mg PO HS #30 tab 01/08/22 Insuln Asp Prt/Insulin Aspart 18 unit SQ AC-BID #10 ml 01/08/22 [NovoLOG MIX 70-30 VIAL] carvediloL [Coreg] 6.25 mg PO BID-W/MEALS #60 tab 01/08/22 cefUROXime axetiL [Cefuroxime] 500 mg PO BID 7 Days #14 tab 01/08/22 hydrALAZINE HCL [Apresoline] 75 mg PO BID #90 tab 01/08/22 Allergies Allergy/AdvReac Type Severity Reaction Status Date / Time lactose AdvReac Nausea & Verified 01/04/22 10:05 Vomiting & Diarrhea Review of Systems ROS Statement: Those systems with pertinent positive or pertinent negative responses have been documented in the HPI. Review of Systems: CONST: Denies fever EYES: Denies blurry vision ENT: Denies nasal congestion C/V: Denies Chest pain RESP: Denies shortness of breath GI: Denies abdominal pain : Denies dysuria SKIN: Denies rash. MSK: Endorses mild muscle skeletal back pain. NEURO: Denies headache ROS Other: All systems not noted in ROS Statement are negative. 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 L leg weakness/walks short distances with walker, IDDM type II, neuropathy bilateral legs/feet, gastroparesis, autonomic dysfunction, CKD stage III, BPH, hypotension at times, vertigo when first stands, ELISSA/does not wear his cpap, hypothyroid, bilateral glaucoma/retinal problems History of Any Multi-Drug Resistant Organisms: MRSA Date of last positivie culture/infection: 04/22/16 MDRO Source:: Right Hand Past Surgical History: Orthopedic Surgery Additional Past Surgical History / Comment(s): Recent 6 teeth extracted, PETRA, bilateral eye retinal scraping, bilateral eye cataract removals, colonoscopies Past Anesthesia/Blood Transfusion Reactions: No Reported Reaction Past Psychological History: Anxiety, Bipolar, Depression Smoking Status: Never smoker Past Alcohol Use History: None Reported Past Drug Use History: None Reported - Past Family History Mother Family Medical History: Diabetes Mellitus, Renal Disease Additional Family Medical History / Comment(s): Mother is alive at age 61 with history of diabetes (wears insulin pump). Brother(s) Additional Family Medical History / Comment(s): Patient has 2 brothers and one has history of diabetes and one has no major medical problems. General Exam - General Exam Comments Initial Comments: General: Appears in no acute distress. HEAD: Normal with no signs of head trauma. EYES: PERRLA, EOMI, conjunctiva normal, no discharge. ENT: Hearing grossly intact, normal oropharynx. Dry mucous membranes. RESPIRATORY: Clear breath sounds bilaterally. No wheezes, rales, or rhonchi. C/V: Regular rate and rhythm. S1 and S2 auscultated, no edema, peripheral pulses 2+ and intact throughout ABD: Abd is soft, nontender, nondistended. Patient does have what appears to be a suspected hemangioma located over the left upper abdomen. Mildly tender to palpation. No bleeding. exam appears unremarkable. Rosado catheter in place. No obvious discharge. EXT: Contractured left upper extremity. Chronic left-sided weakness. Mild tenderness to palpation of the paraspinal muscles of the lumbar spine. SKIN: Hemangioma located over the left upper abdomen. NEURO: Alert and oriented 4. Baseline mental status. Residual left-sided weakness secondary to prior stroke. Unchanged. Limitations: no limitations Course Vital Signs 01/27/22 01/27/22 17:48 20:00 Temperature 98.2 F Pulse Rate 94 88 Respiratory 20 Rate Blood Pressure 175/103 187/79 O2 Sat by Pulse 96 Oximetry Medical Decision Making - Medical Decision Making Based on the patient's presentation and physical exam, I'm concerned for dehydration possible infectious process for his current symptoms. We will obtain infectious labs. Ultrasound of the bladder, kidneys as well as the left upper abdominal mass that is chronic will be obtained. He will be symptomat ically treated with pain medications, IV fluids. He was in agreement this plan. Blood sugar initially was low. He did drink some juice, and was given an amp of D50 by nursing. Vital signs are within normal limits otherwise. EKG shows no signs of acute ischemia. KUB x-ray reveals a nonacute abdomen. Soft tissue ultrasound reveals a hemangioma. Abdomen and bladder ultrasound reveals an empty bladder. Rosado is in place. Laboratory studies remarkable for a chronic normocytic anemia with hemoglobin of 8.7. Patient has an elevated BUN/creatinine which does appear to be at his baseline of 49 and 2.49 respectively. I stated above, blood sugar was initially low but responded to 1 amp of D50 as well as oral juice. We'll continue to monitor. Urinalysis is suspicious for an acute UTI. Acetone is negative. Covid is negative. I updated the patient as well as family members. Patient will be admitted to the hospital for IV hydration as well as IV antibiotics. Patient was in agreement with this plan. I spoke with the admitting physician, Dr. Johnson who is covering for Dr. Guillen. Patient was admitted in stable condition. He Accepted the admission. - Lab Data Result diagrams: 01/27/22 18:06 01/27/22 18:06 Lab Results 01/27/22 01/27/22 01/27/22 Range/Units 18:06 18:06 18:06 WBC 7.8 (3.8-10.6) k/uL RBC 3.18 L (4.30-5.90) m/uL Hgb 8.7 L (13.0-17.5) gm/dL Hct 26.8 L (39.0-53.0) % MCV 84.5 (80.0-100.0) fL MCH 27.5 (25.0-35.0) pg MCHC 32.5 (31.0-37.0) g/dL RDW 14.4 (11.5-15.5) % Plt Count 284 (150-450) k/uL MPV 7.5 Neutrophils % 77 % Lymphocytes % 13 % Monocytes % 6 % Eosinophils % 2 % Basophils % 1 % Neutrophils # 5.9 (1.3-7.7) k/uL Lymphocytes # 1.0 (1.0-4.8) k/uL Monocytes # 0.5 (0-1.0) k/uL Eosinophils # 0.2 (0-0.7) k/uL Basophils # 0.1 (0-0.2) k/uL Hypochromasia Slight PT 11.7 (9.0-12.0) sec INR 1.1 (<1.2) APTT 27.9 (22.0-30.0) sec Sodium 142 (137-145) mmol/L Potassium 4.3 (3.5-5.1) mmol/L Chloride 108 H (98-107) mmol/L Carbon Dioxide 22 (22-30) mmol/L Anion Gap 12 mmol/L BUN 49 H (9-20) mg/dL Creatinine 2.49 H (0.66-1.25) mg/dL Est GFR (CKD-EPI)AfAm 34 (>60 ml/min/1.73 sqM) Est GFR (CKD-EPI)NonAf 29 (>60 ml/min/1.73 sqM) Glucose 70 L (74-99) mg/dL POC Glucose (mg/dL) (70-110) mg/dL POC Glu Quenching Machine Operator ID Plasma Lactic Acid Andrea (0.7-2.0) mmol/L Calcium 8.7 (8.4-10.2) mg/dL Total Bilirubin 0.3 (0.2-1.3) mg/dL AST 31 (17-59) U/L ALT 30 (4-49) U/L Alkaline Phosphatase 83 (38-126) U/L Total Protein 6.2 L (6.3-8.2) g/dL Albumin 3.8 (3.5-5.0) g/dL Amylase 39 (30-110) U/L Lipase 32 (23-300) U/L Urine Color Urine Appearance (Clear) Urine pH (5.0-8.0) Ur Specific [place] (1.001-1.035) Urine Protein (Negative) Urine Glucose (UA) (Negative) Urine Ketones (Negative) Urine Blood (Negative) Urine Nitrite (Negative) Urine Bilirubin (Negative) Urine Urobilinogen (<2.0) mg/dL Ur Leukocyte Esterase (Negative) Urine RBC (0-5) /hpf Urine WBC (0-5) /hpf Urine Bacteria (None) /hpf Urine Mucus (None) /hpf Acetone, Qual (Negative) Coronavirus (PCR) (Not Detectd) 01/27/22 01/27/22 01/27/22 Range/Units 18:06 18:06 18:09 WBC (3.8-10.6) k/uL RBC (4.30-5.90) m/uL Hgb (13.0-17.5) gm/dL Hct (39.0-53.0) % MCV (80.0-100.0) fL MCH (25.0-35.0) pg MCHC (31.0-37.0) g/dL RDW (11.5-15.5) % Plt Count (150-450) k/uL MPV Neutrophils % % Lymphocytes % % Monocytes % % Eosinophils % % Basophils % % Neutrophils # (1.3-7.7) k/uL Lymphocytes # (1.0-4.8) k/uL Monocytes # (0-1.0) k/uL Eosinophils # (0-0.7) k/uL Basophils # (0-0.2) k/uL Hypochromasia PT (9.0-12.0) sec INR (<1.2) APTT (22.0-30.0) sec Sodium (137-145) mmol/L Potassium (3.5-5.1) mmol/L Chloride (98-107) mmol/L Carbon Dioxide (22-30) mmol/L Anion Gap mmol/L BUN (9-20) mg/dL Creatinine (0.66-1.25) mg/dL Est GFR (CKD-EPI)AfAm (>60 ml/min/1.73 sqM) Est GFR (CKD-EPI)NonAf (>60 ml/min/1.73 sqM) Glucose (74-99) mg/dL POC Glucose (mg/dL) 68 L (70-110) mg/dL POC Glu Quenching Machine Operator ID Anisa Joya Plasma Lactic Acid Andrea 0.5 L (0.7-2.0) mmol/L Calcium (8.4-10.2) mg/dL Total Bilirubin (0.2-1.3) mg/dL AST (17-59) U/L ALT (4-49) U/L Alkaline Phosphatase (38-126) U/L Total Protein (6.3-8.2) g/dL Albumin (3.5-5.0) g/dL Amylase (30-110) U/L Lipase (23-300) U/L Urine Color Light Yellow Urine Appearance Clear (Clear) Urine pH 5.5 (5.0-8.0) Ur Specific [place] 1.017 (1.001-1.035) Urine Protein 3+ H (Negative) Urine Glucose (UA) 4+ H (Negative) Urine Ketones Trace H (Negative) Urine Blood Large H (Negative) Urine Nitrite Negative (Negative) Urine Bilirubin Negative (Negative) Urine Urobilinogen <2.0 (<2.0) mg/dL Ur Leukocyte Esterase Moderate H (Negative) Urine RBC 9 H (0-5) /hpf Urine WBC 53 H (0-5) /hpf Urine Bacteria Occasional H (None) /hpf Urine Mucus Rare H (None) /hpf Acetone, Qual (Negative) Coronavirus (PCR) (Not Detectd) 01/27/22 01/27/22 01/27/22 Range/Units 18:42 18:44 19:21 WBC (3.8-10.6) k/uL RBC (4.30-5.90) m/uL Hgb (13.0-17.5) gm/dL Hct (39.0-53.0) % MCV (80.0-100.0) fL MCH (25.0-35.0) pg MCHC (31.0-37.0) g/dL RDW (11.5-15.5) % Plt Count (150-450) k/uL MPV Neutrophils % % Lymphocytes % % Monocytes % % Eosinophils % % Basophils % % Neutrophils # (1.3-7.7) k/uL Lymphocytes # (1.0-4.8) k/uL Monocytes # (0-1.0) k/uL Eosinophils # (0-0.7) k/uL Basophils # (0-0.2) k/uL Hypochromasia PT (9.0-12.0) sec INR (<1.2) APTT (22.0-30.0) sec Sodium (137-145) mmol/L Potassium (3.5-5.1) mmol/L Chloride (98-107) mmol/L Carbon Dioxide (22-30) mmol/L Anion Gap mmol/L BUN (9-20) mg/dL Creatinine (0.66-1.25) mg/dL Est GFR (CKD-EPI)AfAm (>60 ml/min/1.73 sqM) Est GFR (CKD-EPI)NonAf (>60 ml/min/1.73 sqM) Glucose (74-99) mg/dL POC Glucose (mg/dL) 133 H (70-110) mg/dL POC Glu Quenching Machine Operator ID Diandra Quiñonez Plasma Lactic Acid Andrea (0.7-2.0) mmol/L Calcium (8.4-10.2) mg/dL Total Bilirubin (0.2-1.3) mg/dL AST (17-59) U/L ALT (4-49) U/L Alkaline Phosphatase (38-126) U/L Total Protein (6.3-8.2) g/dL Albumin (3.5-5.0) g/dL Amylase (30-110) U/L Lipase (23-300) U/L Urine Color Urine Appearance (Clear) Urine pH (5.0-8.0) Ur Specific [place] (1.001-1.035) Urine Protein (Negative) Urine Glucose (UA) (Negative) Urine Ketones (Negative) Urine Blood (Negative) Urine Nitrite (Negative) Urine Bilirubin (Negative) Urine Urobilinogen (<2.0) mg/dL Ur Leukocyte Esterase (Negative) Urine RBC (0-5) /hpf Urine WBC (0-5) /hpf Urine Bacteria (None) /hpf Urine Mucus (None) /hpf Acetone, Qual Negative (Negative) Coronavirus (PCR) Not Detected (Not Detectd) - EKG Data -: EKG Interpreted by Me EKG Comments: 12-lead Electrocardiogram Interpretation Note EKG was reviewed and interpreted by myself. 12-lead ECG performed at 1750 is interpreted by me as revealing normal sinus rhythm at a rate of 93 beats per minute. [place] is normal. MO intervals 179 ms, QRS duration is 84 ms, QTc is 399 ms.. There were no ST or T wave abnormalities to suggest myocardial ischemia or injury. R wave progression across the precordium was satisfactory. By my interpretation this EKG is non-diagnostic for acute ischemia. Disposition Clinical Impression: Dehydration, Debility, History of stroke with residual deficit, Hemangioma, CKD (chronic kidney disease), UTI (urinary tract infection) Disposition: ADMITTED IP TO THIS HOSP Condition: Stable Referrals: Justine Guillen MD [Primary Care Provider] - 1-2 days Time of Disposition: 20:30
[2022-01-27] MEDS ORDERED: NALOXONE 0.4 MG/ML 1 ML VIAL IV PRN (20:55)
[2022-01-27] MEDS ORDERED: MORPHINE SULFATE 4 MG/ML SYRINGE IV PRN (20:55)
[2022-01-28 04:38] LABS: Glucose,Whole Blood 53 mg/dL (70-110)
[2022-01-28] MEDS ORDERED: DEXTROSE 50% SYRINGE 50 ML IVP STA (05:01)
[2022-01-28 05:02] LABS: Glucose,Whole Blood 53 mg/dL (70-110)
[2022-01-28 05:33] LABS: Glucose,Whole Blood 145 mg/dL (70-110)
[2022-01-28 05:36] LABS: Basophils % (A) 0 %; Eosinophils # (A) 0.2 k/uL (0-0.7); Eosinophils % (A) 3 %; HCT 25.8 % (39.0-53.0); HGB 8.5 gm/dL (13.0-17.5); Hypochromasia Moderate; Lymphocytes # (A) 1.3 k/uL (1.0-4.8); Lymphocytes % (A) 24 %; MCH 28.2 pg (25.0-35.0); MCV 85.5 fL (80.0-100.0); Mean Platelet Volume 7.7; Monocytes # (A) 0.4 k/uL (0-1.0); Monocytes % (A) 8 %; Neutrophils # (A) 3.5 k/uL (1.3-7.7); Neutrophils % (A) 63 %; Platelet Count 242 k/uL (150-450); RBC 3.02 m/uL (4.30-5.90); RDW 14.2 % (11.5-15.5); WBC 5.5 k/uL (3.8-10.6)
[2022-01-28 06:01] LABS: Calcium 8.3 mg/dL (8.4-10.2); Potassium 4.3 mmol/L (3.5-5.1)
[2022-01-28 10:33] LABS: Glucose,Whole Blood 65 mg/dL (70-110)
[2022-01-28] MEDS ORDERED: DEXTROSE 50% SYRINGE 50 ML IVP PRN ×2 (10:33)
[2022-01-28] MEDS: TAMSULOSIN 0.4 MG CAP.ER.24H PO SCH (12:13)
[2022-01-28] MEDS: buPROPion SR 150 MG TABLET.ER PO SCH ×2 (12:13→21:29)
[2022-01-28] MEDS: carvediloL 6.25 MG TAB PO SCH ×2 (12:13→17:50)
[2022-01-28] MEDS: INSULIN ASPART (NovoLOG) 100 UNIT/ML VIAL SQ SCH ×3 (12:30→20:05)
[2022-01-28] MEDS: GABAPENTIN 400 MG CAP PO SCH ×2 (17:44→21:29)
[2022-01-28] MEDS: PILOCARPINE 5 MG TAB PO SCH ×2 (17:50→21:31)
[2022-01-28] MEDS: BENZTROPINE MESYLATE 1 MG TAB PO SCH ×2 (17:51→21:30)
[2022-01-28 17:57] LABS: Glucose,Whole Blood 69 mg/dL (70-110)
[2022-01-28 19:34] LABS: Glucose,Whole Blood 63 mg/dL (70-110)
[2022-01-28] MEDS: INSULIN DETEMIR (LEVEMIR) 100 UNIT/ML SYR SQ SCH (20:04)
[2022-01-28 20:58] LABS: Glucose,Whole Blood 67 mg/dL (70-110)
[2022-01-28] MEDS: METHYLPHENIDATE HCL 10 MG TAB PO SCH (21:29)
[2022-01-28] MEDS: ATORVASTATIN 40 MG TAB PO SCH (21:29)
[2022-01-28] MEDS: APIXABAN 5 MG TAB PO SCH (21:29)
[2022-01-28 21:44] LABS: Glucose,Whole Blood 73 mg/dL (70-110)
--- NOTE | 2022-01-28 23:51 | P.HPIM ---
History of Present Illness H&P Date: 01/28/22 Chief Complaint: Dehydration Patient 51-year-old male with a known history of CVA with left-sided weakness, hypertension, diabetes type 2 insulin-dependent, BPH, chronic indwelling Rosado catheter, obstructive sleep apnea not using CPAP, hypothyroidism, anxiety/depression and bipolar disorder and other multiple medical problems was brought to the hospital by his family with concern of dehydration. Patient does not know why he was brought to the hospital. Desperately patient has not been eating or drinking well recently. Patient does have prior history of urinary tract infections. Otherwise patient has been afebrile. No fever no chills. No cough or sputum production. Denies any chest pain or shortness of breath. No diarrhea. No complaints of nausea vomiting or abdominal pain. On admission KUB x-ray showed no acute abdomen. Soft tissue ultrasound of the left upper abdominal mass showed well marginated oval-shaped complex mass with peripheral vascularity in the area of concern in the left upper quadrant anteriorly. This could be a hemangioma. Does not ap pear to be a hernia sac. Ultrasound of the bladder showed urinary bladder was empty. There is Rosado cath in the bladder. No evidence of renal mass or obstruction. EKG showed sinus rhythm Laboratory pressure WBC 7.8 hemoglobin 8.7 and platelets 284 Sodium 142 potassium 4.3 chloride 108 BUN 49 and creatinine 2.49 and blood sugar 70 Urinalysis showed 3+ protein 4+ glucose large blood nitrate negative and moderate leukocyte esterase with elevated RBCs and WBCs. Acetone negative Coronavirus PCR not detected Patient is Eliquis likely for stroke prophylaxis. Review of Systems Constitutional: Patient denies any fever or chills . Does have generalized weakness. Abdomen: Patient denied any nausea or vomiting or abd. pain Cardiovascular: Patient denies any chest pain or short of breath no palpitations. Respiratory: patient denied any cough . no sputum production. No shortness of breath Neurologic: Patient denied any numbness or tingling headache. Musculoskeletal: Patient denies any complaints of joint swelling or deformity. Complete review of systems could not be obtained from the patient. Past Medical History Past Medical History: CVA/TIA, Diabetes Mellitus, Eye Disorder, GERD/Reflux, Hypertension, Musculoskeletal Disorder, Prostate Disorder, Renal Disease, Sleep Apnea/CPAP/BIPAP, Thyroid Disorder Additional Past Medical History / Comment(s): CVA in 2019 and 2021/L arm paralysis and L leg weakness/walks short distances with walker, IDDM type II, neuropathy bilateral legs/feet, gastroparesis, autonomic dysfunction, CKD stage III, BPH, hypotension at times, vertigo when first stands, ELISSA/does not wear his cpap, hypothyroid, bilateral glaucoma/retinal problems History of Any Multi-Drug Resistant Organisms: MRSA Date of last positivie culture/infection: 04/22/16 MDRO Source:: Right Hand Past Surgical History: Orthopedic Surgery Additional Past Surgical History / Comment(s): Recent 6 teeth extracted, PETRA, bilateral eye retinal scraping, bilateral eye cataract removals, colonoscopies Past Anesthesia/Blood Transfusion Reactions: No Reported Reaction Past Psychological History: Anxiety, Bipolar, Depression Smoking Status: Never smoker Past Alcohol Use History: None Reported Past Drug Use History: None Reported - Past Family History Mother Family Medical History: Diabetes Mellitus, Renal Disease Additional Family Medical History / Comment(s): Mother is alive at age 61 with history of diabetes (wears insulin pump). Brother(s) Additional Family Medical History / Comment(s): Patient has 2 brothers and one has history of diabetes and one has no major medical problems. Medications and Allergies Home Medications Medication Instructions Recorded Confirmed Type Omeprazole 40 mg PO DAILY 03/27/20 01/27/22 History Venlafaxine HCl [Effexor XR] 225 mg PO DAILY 03/27/20 01/27/22 History buPROPion HCL [Wellbutrin SR] 150 mg PO BID 03/27/20 01/27/22 History Methylphenidate HCl 20 mg PO BID 06/29/20 01/27/22 History Benztropine Mesylate [Cogentin] 1.5 mg PO TID 09/25/21 01/27/22 History Gabapentin [Neurontin] 400 mg PO TID 09/25/21 01/27/22 History Pioglitazone [Actos] 15 mg PO DAILY 09/25/21 01/27/22 History Apixaban [Eliquis] 5 mg PO BID 01/04/22 01/27/22 History Pilocarpine [Salagen] 5 mg PO TID 01/04/22 01/27/22 History Tamsulosin HCl [Flomax] 0.4 mg PO DAILY 01/04/22 01/27/22 History polyethylene glycoL 3350 [Miralax] 17 gm PO DAILY 01/04/22 01/27/22 History Atorvastatin [Lipitor] 40 mg PO HS #30 tab 01/08/22 01/27/22 Rx carvediloL [Coreg] 6.25 mg PO BID-W/MEALS #60 tab 01/08/22 01/27/22 Rx Dapagliflozin Propanediol [Farxiga] 10 mg PO DAILY 01/27/22 01/27/22 History Dulaglutide [Trulicity] 1.5 mg SQ TH 01/27/22 01/27/22 History Midodrine HCl [ProAmatine] 10 mg PO TID@0600,1200,1800 01/27/22 01/27/22 History Insulin Glargine,Hum.rec.anlog 25 unit SQ HS 01/28/22 01/28/22 History [Basaglar Hetalpen U-100] Allergies Allergy/AdvReac Type Severity Reaction Status Date / Time lactose AdvReac Nausea & Verified 01/27/22 21:37 Vomiting & Diarrhea Physical Exam Vitals: Vital Signs Temp Pulse Resp BP Pulse Ox 01/28/22 08:00 84 16 174/96 97 01/28/22 06:08 98.1 F 82 16 167/98 99 01/28/22 05:33 89 15 161/97 99 01/28/22 04:00 92 178/89 99 01/28/22 02:31 78 162/84 98 01/28/22 01:15 86 15 151/85 98 01/27/22 22:00 97.8 F 90 15 154/83 98 01/27/22 21:00 82 135/103 01/27/22 20:00 88 187/79 01/27/22 17:48 98.2 F 94 20 175/103 96 Intake and Output 01/27/22 01/28/22 01/28/22 22:59 06:59 14:59 Other: Weight 90.718 kg PHYSICAL EXAMINATION: Patient is lying in the bed comfortably, no acute distress, awake alert and oriented.. Able to communicate slowly. HEENT: Normocephalic. Neck is supple. Pupils reactive. Nostrils clear. Oral cavity is moist. Neck reveals no JVD, carotid bruits, or thyromegaly. CHEST EXAMINATION: Trachea is central. Symmetrical expansion. Lung márquez clear to auscultation and percussion. CARDIAC: Normal S1, S2 with no gallops. No murmurs ABDOMEN: Soft. Bowel sounds present. Nontender. No organomegaly. No abdominal bruits. Extremities: reveal no edema. No clubbing or cyanosis Neurologically awake, alert, oriented x2-3. Patient does have residual left- sided weakness. Skin: No rash or skin lesions. Psychiatric: Coperative. Nonsuicidal, Musculoskeletal: No joint swelling or deformity. Results CBC & Chem 7: 01/28/22 05:00 01/28/22 05:00 Labs: Abnormal Lab Results - Last 24 Hours (Table) 01/27/22 01/27/22 01/27/22 Range/Units 18:06 18:06 18:06 RBC 3.18 L (4.30-5.90) m/uL Hgb 8.7 L (13.0-17.5) gm/dL Hct 26.8 L (39.0-53.0) % Chloride 108 H (98-107) mmol/L BUN 49 H (9-20) mg/dL Creatinine 2.49 H (0.66-1.25) mg/dL Glucose 70 L (74-99) mg/dL POC Glucose (mg/dL) (70-110) mg/dL Plasma Lactic Acid Andrea (0.7-2.0) mmol/L Calcium (8.4-10.2) mg/dL Total Protein 6.2 L (6.3-8.2) g/dL Urine Protein 3+ H (Negative) Urine Glucose (UA) 4+ H (Negative) Urine Ketones Trace H (Negative) Urine Blood Large H (Negative) Ur Leukocyte Esterase Moderate H (Negative) Urine RBC 9 H (0-5) /hpf Urine WBC 53 H (0-5) /hpf Urine Bacteria Occasional H (None) /hpf Urine Mucus Rare H (None) /hpf 01/27/22 01/27/22 01/27/22 Range/Units 18:06 18:09 19:21 RBC (4.30-5.90) m/uL Hgb (13.0-17.5) gm/dL Hct (39.0-53.0) % Chloride (98-107) mmol/L BUN (9-20) mg/dL Creatinine (0.66-1.25) mg/dL Glucose (74-99) mg/dL POC Glucose (mg/dL) 68 L 133 H (70-110) mg/dL Plasma Lactic Acid Andrea 0.5 L (0.7-2.0) mmol/L Calcium (8.4-10.2) mg/dL Total Protein (6.3-8.2) g/dL Urine Protein (Negative) Urine Glucose (UA) (Negative) Urine Ketones (Negative) Urine Blood (Negative) Ur Leukocyte Esterase (Negative) Urine RBC (0-5) /hpf Urine WBC (0-5) /hpf Urine Bacteria (None) /hpf Urine Mucus (None) /hpf 01/28/22 01/28/22 01/28/22 Range/Units 04:35 04:58 05:00 RBC 3.02 L (4.30-5.90) m/uL Hgb 8.5 L (13.0-17.5) gm/dL Hct 25.8 L (39.0-53.0) % Chloride (98-107) mmol/L BUN (9-20) mg/dL Creatinine (0.66-1.25) mg/dL Glucose (74-99) mg/dL POC Glucose (mg/dL) 53 L 53 L (70-110) mg/dL Plasma Lactic Acid Andrea (0.7-2.0) mmol/L Calcium (8.4-10.2) mg/dL Total Protein (6.3-8.2) g/dL Urine Protein (Negative) Urine Glucose (UA) (Negative) Urine Ketones (Negative) Urine Blood (Negative) Ur Leukocyte Esterase (Negative) Urine RBC (0-5) /hpf Urine WBC (0-5) /hpf Urine Bacteria (None) /hpf Urine Mucus (None) /hpf 01/28/22 01/28/22 Range/Units 05:00 05:31 RBC (4.30-5.90) m/uL Hgb (13.0-17.5) gm/dL Hct (39.0-53.0) % Chloride 109 H (98-107) mmol/L BUN 40 H (9-20) mg/dL Creatinine 2.26 H (0.66-1.25) mg/dL Glucose 51 L (74-99) mg/dL POC Glucose (mg/dL) 145 H (70-110) mg/dL Plasma Lactic Acid Andrea (0.7-2.0) mmol/L Calcium 8.3 L (8.4-10.2) mg/dL Total Protein (6.3-8.2) g/dL Urine Protein (Negative) Urine Glucose (UA) (Negative) Urine Ketones (Negative) Urine Blood (Negative) Ur Leukocyte Esterase (Negative) Urine RBC (0-5) /hpf Urine WBC (0-5) /hpf Urine Bacteria (None) /hpf Urine Mucus (None) /hpf Microbiology - Last 24 Hours (Table) 01/27/22 18:06 Urine Culture - Preliminary Urine,Voided Thrombosis Risk Factor Assmnt - DVT/VTE Prophylaxis DVT/VTE Prophylaxis: Pharmacologic Prophylaxis ordered Assessment and Plan Assessment: Acute on chronic kidney disease stage III. Creatinine level 2.26 on admission. Baseline creatinine around 1.5 Acute urinary tract infection with underlying chronic indwelling Rosado catheter. Dehydration volume depletion due to poor oral intake Normocytic anemia hemoglobin 8.5 History of CVA with residual left-sided weakness. Hypertension Diabetes type 2 insulin-dependent BPH Obstructive sleep apnea not using CPAP at home Hypothyroidism History of bilateral glaucoma/retinal problems Anxiety/depression bipolar disorder DVT prophylaxis patient is already on Eliquis Plan: Patient will be continued IV hydration with normal saline and continue with antibiotics, ceftriaxone. Follow-up renal function and urine culture report. Continue with insulin regimen and sliding scale for better blood sugar control. Rosado catheter exchange and continued home medication including Flomax. PT will be consulted and patient may need rehab transfer. Prognosis is guarded. Follow-up closely. Time with Patient: Greater than 30
[2022-01-29 06:52] LABS: Glucose,Whole Blood 67 mg/dL (70-110)
[2022-01-29] MEDS: INSULIN ASPART (NovoLOG) 100 UNIT/ML VIAL SQ SCH ×4 (06:54→21:10)
[2022-01-29] MEDS: TAMSULOSIN 0.4 MG CAP.ER.24H PO SCH (07:23)
[2022-01-29] MEDS: METHYLPHENIDATE HCL 10 MG TAB PO SCH ×2 (07:23→21:51)
[2022-01-29] MEDS: APIXABAN 5 MG TAB PO SCH ×2 (07:23→21:17)
[2022-01-29] MEDS: VENLAFAXINE HCL ER 75 MG CAP PO SCH (07:24)
[2022-01-29] MEDS: PANTOPRAZOLE 40 MG TABLET PO SCH (07:24)
[2022-01-29] MEDS: polyethylene glycoL 3350 17 GM POWD.PACK PO SCH (07:24)
[2022-01-29] MEDS: carvediloL 6.25 MG TAB PO SCH ×2 (07:24→16:41)
[2022-01-29] MEDS: GABAPENTIN 400 MG CAP PO SCH ×3 (07:24→21:17)
[2022-01-29] MEDS: BENZTROPINE MESYLATE 1 MG TAB PO SCH ×3 (07:25→21:17)
[2022-01-29] MEDS: PILOCARPINE 5 MG TAB PO SCH ×3 (07:25→21:17)
[2022-01-29] MEDS: buPROPion SR 150 MG TABLET.ER PO SCH ×2 (07:26→21:17)
[2022-01-29 07:45] LABS: Glucose,Whole Blood 83 mg/dL (70-110)
[2022-01-29 08:48] LABS: Basophils # (A) 0.05 X 10*3/uL (0.00-0.10); Basophils % (A) 0.8 %; Eosinophils # (A) 0.29 X 10*3/uL (0.04-0.35); Eosinophils % (A) 4.9 %; HCT 28.3 % (39.6-50.0); HGB 8.5 g/dL (13.0-17.0); Immature Grans, Automated 0.2 %; Lymphocytes # (A) 1.49 X 10*3/uL (0.90-5.00); Lymphocytes % (A) 25.3 %; MCH 26.5 pg (27.0-32.0); MCV 88.2 fL (80.0-97.0); Mean Platelet Volume 9.4 fL (9.5-12.2); Monocytes # (A) 0.53 X 10*3/uL (0.20-1.00); NRBC Per 100 WBC 0 /100 WBCS (0.0-0.0); Neutrophils # (A) 3.53 X 10*3/uL (1.80-7.70); Neutrophils % (A) 59.8 %; Platelet Count 233 X 10*3/uL (140-440); RBC 3.21 X 10*6/uL (4.40-5.60); RDW 14.3 % (11.5-14.5)
[2022-01-29 09:03] LABS: African American GFR (CKD) 35.1 (60.0-200.0); BUN/Creat Ratio 14.71 Ratio (12.00-20.00); Blood Urea Nitrogen 35.3 mg/dL (9.0-27.0); Calcium 8.9 mg/dL (8.7-10.3); Non-African American GFR(CKD) 30.3 (60.0-200.0); Potassium 4.5 mmol/L (3.5-5.5)
[2022-01-29] MEDS: SODIUM CHLORIDE 0.9% 1,000 ML IV SCH (11:34)
[2022-01-29 11:55] LABS: Glucose,Whole Blood 83 mg/dL (70-110)
--- NOTE | 2022-01-29 14:02 | US ---
EXAMINATION TYPE: US kidneys/renal and bladder DATE OF EXAM: 01/29/2022 COMPARISON: Previous dated 01/27/2022 CLINICAL HISTORY: EMELI. repeat US from 36 hours ago because of worsening renal labs EXAM MEASUREMENTS: Right Kidney: 12.6 x 5.0 x 5.3 cm Left Kidney: 11.2 x 4.6 x 5.3 cm Right Kidney: No hydronephrosis or masses seen Left Kidney: No hydronephrosis or masses seen Bladder: wilkinson There is no evidence for hydronephrosis at this point in time. No nephrolithiasis is seen. No annie s are identified. Cortical medullary differentiation is maintained The urinary bladder is catheteriz ed. Bilateral ureteral jets are not seen. IMPRESSION: No evident hydronephrosis
[2022-01-29 16:27] LABS: Glucose,Whole Blood 102 mg/dL (70-110)
[2022-01-29 20:55] LABS: Glucose,Whole Blood 111 mg/dL (70-110)
[2022-01-29] MEDS: INSULIN DETEMIR (LEVEMIR) 100 UNIT/ML SYR SQ SCH (21:10)
[2022-01-29] MEDS: ATORVASTATIN 40 MG TAB PO SCH (21:18)
[2022-01-30] MEDS: SODIUM CHLORIDE 0.9% 1,000 ML IV SCH ×2 (02:14→17:49)
--- NOTE | 2022-01-30 05:17 | P.PN ---
Subjective Progress Note Date: 01/29/22 Patient 51-year-old male with a known history of CVA with left-sided weakness, hypertension, diabetes type 2 insulin-dependent, BPH, chronic indwelling Wilkinson catheter, obstructive sleep apnea not using CPAP, hypothyroidism, anxiety/depression and bipolar disorder and other multiple medical problems was brought to the hospital by his family with concern of dehydration. Patient does not know why he was brought to the hospital. Desperately patient has not been eating or drinking well recently. Patient does have prior history of urinary tract infections. Otherwise patient has been afebrile. No fever no chills. No cough or sputum production. Denies any chest pain or shortness of breath. No diarrhea. No complaints of nausea vomiting or abdominal pain. On admission KUB x-ray showed no acute abdomen. Soft tissue ultrasound of the left upper abdominal mass showed well marginated oval-shaped complex mass with peripheral vascularity in the area of concern in the left upper quadrant anteriorly. This could be a hemangioma. Does not appear to be a hernia sac. Ultrasound of the bladder showed urinary bladder was empty. There is Wilkinson cath in the bladder. No evidence of renal mass or obstruction. EKG showed sinus rhythm Laboratory pressure WBC 7.8 hemoglobin 8.7 and platelets 284 Sodium 142 potassium 4.3 chloride 108 BUN 49 and creatinine 2.49 and blood sugar 70 Urinalysis showed 3+ protein 4+ glucose large blood nitrate negative and moderate leukocyte esterase with elevated RBCs and WBCs. Acetone negative Coronavirus PCR not detected Patient is Eliquis likely for stroke prophylaxis. 01/29/2022 Patient is seen and evaluated in follow-up this morning appears somewhat anxious and reports he wants to go home. Case management following as well and working on possible ECF. PT/OT to evaluate. Patient with chronic indwelling wilkinson catheter that has been changed and waiting on finalized cultures. Preliminary showing gram negative bacilli. Patient is afebrile and denies chest pain or shortness of breath. Patient reports to tolerating oral intake with no reports of nausea or vomiting. Patient oral intake is fair. Does not care for the food here he reports. Review of systems: Constitutional: No reports of fatigue, fever, or chills Cardiovascular: No reports of chest pain or palpitations Respiratory: No reports of shortness of breath or cough GI: No reports of nausea, vomiting, or diarrhea : No reports of dysuria or retention Neurovascular: reports of weakness All medications have been reviewed Active Medications Apixaban (Apixaban 5 Mg Tab) 5 mg PO BID [facility]; Protocol Last Admin: 01/29/22 07:23 Dose: 5 mg Atorvastatin Calcium (Atorvastatin 40 Mg Tab) 40 mg PO HS [facility] Last Admin: 01/28/22 21:29 Dose: 40 mg Benztropine Mesylate (Benztropine Mesylate 1 Mg Tab) 1.5 mg PO TID [facility] Last Admin: 01/29/22 07:25 Dose: 1.5 mg Bupropion HCl (Bupropion Sr 150 Mg Tablet.Er) 150 mg PO BID [facility] Last Admin: 01/29/22 07:26 Dose: 150 mg Carvedilol (Carvedilol 6.25 Mg Tab) 6.25 mg PO BID-W/MEALS [facility] Last Admin: 01/29/22 07:24 Dose: 6.25 mg Dextrose/Water (Dextrose 50% Syringe 50 Ml) 50 ml IVP PER PROTOCOL PRN; Protocol PRN Reason: Hypoglycemia Dextrose/Water (Dextrose 50% Syringe 50 Ml) 25 ml IVP PER PROTOCOL PRN; Protocol PRN Reason: Hypoglycemia Gabapentin (Gabapentin 400 Mg Cap) 400 mg PO TID [facility] Last Admin: 01/29/22 07:24 Dose: 400 mg Ceftriaxone Sodium 2 gm/ (Sodium Chloride) 50 mls @ 100 mls/hr IVPB Q24HR [facility]; Protocol Last Admin: 01/29/22 07:25 Dose: 100 mls/hr Sodium Chloride (Saline 0.9%) 1,000 mls @ 75 mls/hr IV .[id number] [facility] Last Admin: 01/29/22 11:34 Dose: 75 mls/hr Insulin Aspart (Insulin Aspart (Novolog) 100 Unit/Ml Vial) 0 unit SQ [facility]; Protocol Last Admin: 01/29/22 12:10 Dose: Not Given Insulin Detemir (Insulin Detemir (Levemir) 100 Unit/Ml Syr) 25 unit SQ [facility] Last Admin: 01/28/22 20:04 Dose: Not Given Methylphenidate HCl (Methylphenidate Hcl 10 Mg Tab) 20 mg PO BID [facility] Last Admin: 01/29/22 07:23 Dose: 20 mg Morphine Sulfate (Morphine Sulfate 4 Mg/Ml Syringe) 4 mg IV Q4HR PRN PRN Reason: Severe Pain (Scale 7 to 10) Naloxone HCl (Naloxone 0.4 Mg/Ml 1 Ml Vial) 0.2 mg IV Q2M PRN PRN Reason: Opioid Reversal Pantoprazole Sodium (Pantoprazole 40 Mg Tablet) 40 mg PO AC-BRKFST [facility] Last Admin: 01/29/22 07:24 Dose: 40 mg Pilocarpine HCl (Pilocarpine 5 Mg Tab) 5 mg PO TID [facility] Last Admin: 01/29/22 07:25 Dose: 5 mg Polyethylene Glycol (Polyethylene Glycol 3350 17 Gm Powd.Pack) 17 gm PO DAILY [facility] Last Admin: 01/29/22 07:24 Dose: 17 gm Tamsulosin HCl (Tamsulosin 0.4 Mg Cap.Er.24h) 0.4 mg PO DAILY [facility] Last Admin: 01/29/22 07:23 Dose: 0.4 mg Venlafaxine HCl (Venlafaxine Hcl Er 75 Mg Cap) 225 mg PO DAILY [facility] Last Admin: 01/29/22 07:24 Dose: 225 mg Physical exam: Patient is lying in the bed comfortably, no acute distress, awake alert and oriented.. Able to communicate slowly. HEENT: Normocephalic. Neck is supple. Pupils reactive. Nostrils clear. Oral cavity is moist. Neck reveals no JVD, carotid bruits, or thyromegaly. CHEST EXAMINATION: Trachea is central. Symmetrical expansion. Lung márquez clear to auscultation and percussion. CARDIAC: Normal S1, S2 with no gallops. No murmurs ABDOMEN: Soft. Bowel sounds present. Nontender. No organomegaly. No abdominal bruits. Extremities: reveal no edema. No clubbing or cyanosis Neurologically awake, alert, oriented x2-3. Patient does have residual left- sided weakness. Skin: No rash or skin lesions. Psychiatric: Cooperative. Non-suicidal, Musculoskeletal: No joint swelling or deformity. Assessment: Acute on chronic kidney disease stage III. Creatinine level 2.26 on admission. Baseline creatinine around 1.5 Acute urinary tract infection with underlying chronic indwelling Wilkinson catheter, present on admission. Dehydration volume depletion due to poor oral intake Normocytic anemia hemoglobin 8.5 History of CVA with residual left-sided weakness. Hypertension Diabetes type 2 insulin-dependent BPH Obstructive sleep apnea not using CPAP at home Hypothyroidism History of bilateral glaucoma/retinal problems Anxiety/depression bipolar disorder DVT prophylaxis patient is already on Eliquis Plan: Patient will be continued IV hydration with normal saline and continue with antibiotics, ceftriaxone. Follow-up renal function and urine culture report. Urine culture preliminary showing gram negative bacilli Continue with insulin regimen and sliding scale for tight glycemic control. Wilkinson catheter has been replaced and continued home medication including Flomax. PT will be consulted. Consult to case management for possible ecf. Prognosis is guarded. Follow-up closely. The impression and plan of care has been dictated by Jennifer Mcdonnell, Nurse Practitioner as directed. Dr. Andrew MD I have performed a history and examination and MDM of this patient, discussed the same with the dictator, and agree with the dictator's assessment and plan as written ,documented as a scribe. Based on total visit time, I have performed more than 50% of the visit. Objective - Vital Signs Vital signs: Vital Signs Temp 98.1 F 01/29/22 14:00 Pulse 77 01/29/22 14:00 Resp 14 01/29/22 14:00 BP 157/96 01/29/22 14:00 Pulse Ox 98 01/29/22 14:00 FiO2 Intake & Output 01/28/22 01/29/22 01/29/22 18:59 06:59 18:59 Intake Total 150 50 Output Total 500 800 Balance -350 -750 Weight 90.718 kg Intake: Intake, IV Titration 50 Amount cefTRIAXone 2 gm In 50 Sodium Chloride 0.9% 50 ml @ 100 mls/hr IVPB Q24HR [facility] Rx#:[id number] Oral 150 Output: Urine 500 800 Other: Voiding Method Indwelling Catheter Indwelling Catheter - Labs CBC & Chem 7: 01/29/22 05:53 01/29/22 05:53 Labs: Abnormal Lab Results - Last 24 Hours (Table) 01/28/22 01/28/22 01/28/22 Range/Units 17:40 19:33 20:57 RBC (4.40-5.60) X 10*6/uL Hgb (13.0-17.0) g/dL Hct (39.6-50.0) % MCH (27.0-32.0) pg MCHC (32.0-37.0) g/dL MPV (9.5-12.2) fL Carbon Dioxide (20.0-27.5) mmol/L Anion Gap (10.00-18.00) mmol/L BUN (9.0-27.0) mg/dL Creatinine (0.6-1.5) mg/dL Est GFR (CKD-EPI)AfAm (60.0-200.0) Est GFR (CKD-EPI)NonAf (60.0-200.0) Glucose (70-110) mg/dL POC Glucose (mg/dL) 69 L 63 L 67 L (70-110) mg/dL 01/29/22 01/29/22 01/29/22 Range/Units 05:53 05:53 06:51 RBC 3.21 L (4.40-5.60) X 10*6/uL Hgb 8.5 L (13.0-17.0) g/dL Hct 28.3 L (39.6-50.0) % MCH 26.5 L (27.0-32.0) pg MCHC 30.0 L (32.0-37.0) g/dL MPV 9.4 L (9.5-12.2) fL Carbon Dioxide 31.0 H (20.0-27.5) mmol/L Anion Gap 4.00 L (10.00-18.00) mmol/L BUN 35.3 H (9.0-27.0) mg/dL Creatinine 2.4 H (0.6-1.5) mg/dL Est GFR (CKD-EPI)AfAm 35.1 L (60.0-200.0) Est GFR (CKD-EPI)NonAf 30.3 L (60.0-200.0) Glucose 66 L (70-110) mg/dL POC Glucose (mg/dL) 67 L (70-110) mg/dL Microbiology - Last 24 Hours (Table) 01/27/22 18:06 Urine Culture - Preliminary Urine,Voided Gram Neg Bacilli
[2022-01-30 07:10] LABS: Glucose,Whole Blood 89 mg/dL (70-110)
[2022-01-30 08:07] LABS: African American GFR (CKD) 37 (>60 ml/min/1.73 sqM); Anion Gap 10 mmol/L; Blood Urea Nitrogen 33 mg/dL (9-20); Calcium 8.4 mg/dL (8.4-10.2); Carbon Dioxide 26 mmol/L (22-30); Chloride 106 mmol/L (98-107); Glucose 81 mg/dL (74-99); Non-African American GFR(CKD) 32 (>60 ml/min/1.73 sqM); Potassium 4.2 mmol/L (3.5-5.1); Sodium 142 mmol/L (137-145)
[2022-01-30] MEDS: INSULIN ASPART (NovoLOG) 100 UNIT/ML VIAL SQ SCH ×4 (08:30→22:08)
[2022-01-30] MEDS: METHYLPHENIDATE HCL 10 MG TAB PO SCH ×2 (10:18→22:08)
[2022-01-30] MEDS: carvediloL 6.25 MG TAB PO SCH ×2 (10:18→17:31)
[2022-01-30] MEDS: APIXABAN 5 MG TAB PO SCH ×2 (10:18→20:11)
[2022-01-30] MEDS: ACETAMINOPHEN TAB 325 MG TAB PO PRN ×2 (10:19→17:31)
[2022-01-30] MEDS: VENLAFAXINE HCL ER 75 MG CAP PO SCH (10:21)
[2022-01-30] MEDS: PANTOPRAZOLE 40 MG TABLET PO SCH (10:22)
[2022-01-30] MEDS: GABAPENTIN 400 MG CAP PO SCH ×3 (10:22→22:08)
[2022-01-30] MEDS: TAMSULOSIN 0.4 MG CAP.ER.24H PO SCH (10:23)
[2022-01-30] MEDS: polyethylene glycoL 3350 17 GM POWD.PACK PO SCH (10:23)
[2022-01-30] MEDS: PILOCARPINE 5 MG TAB PO SCH ×3 (10:24→22:09)
[2022-01-30] MEDS: buPROPion SR 150 MG TABLET.ER PO SCH ×2 (10:24→20:10)
[2022-01-30] MEDS: BENZTROPINE MESYLATE 1 MG TAB PO SCH ×3 (10:24→22:08)
[2022-01-30 11:43] LABS: Glucose,Whole Blood 108 mg/dL (70-110)
--- NOTE | 2022-01-30 15:52 | P.PN ---
Subjective Progress Note Date: 01/30/22 Patient 51-year-old male with a known history of CVA with left-sided weakness, hypertension, diabetes type 2 insulin-dependent, BPH, chronic indwelling Wilkinson catheter, obstructive sleep apnea not using CPAP, hypothyroidism, anxiety/depression and bipolar disorder and other multiple medical problems was brought to the hospital by his family with concern of dehydration. Patient does not know why he was brought to the hospital. Desperately patient has not been eating or drinking well recently. Patient does have prior history of urinary tract infections. Otherwise patient has been afebrile. No fever no chills. No cough or sputum production. Denies any chest pain or shortness of breath. No diarrhea. No complaints of nausea vomiting or abdominal pain. On admission [facility] x-ray showed no acute abdomen. Soft tissue ultrasound of the left upper abdominal mass showed well marginated oval-shaped complex mass with peripheral vascularity in the area of concern in the left upper quadrant anteriorly. This could be a hemangioma. Does not appear to be a hernia sac. Ultrasound of the bladder showed urinary bladder was empty. There is Wilkinson cath in the bladder. No evidence of renal mass or obstruction. EKG showed sinus rhythm Laboratory pressure WBC 7.8 hemoglobin 8.7 and platelets 284 Sodium 142 potassium 4.3 chloride 108 BUN 49 and creatinine 2.49 and blood sugar 70 Urinalysis showed 3+ protein 4+ glucose large blood nitrate negative and moderate leukocyte esterase with elevated RBCs and WBCs. Acetone negative Coronavirus PCR not detected Patient is Eliquis likely for stroke prophylaxis. 01/29/2022 Patient is seen and evaluated in follow-up this morning appears somewhat anxious and reports he wants to go home. Case management following as well and working on possible ECF. PT/OT to evaluate. Patient with chronic indwelling wilkinson catheter that has been changed and waiting on finalized cultures. Preliminary showing gram negative bacilli. Patient is afebrile and denies chest pain or shortness of breath. Patient reports to tolerating oral intake with no reports of nausea or vomiting. Patient oral intake is fair. Does not care for the food here he reports. 01/30/2022 Patient is seen and evaluated in follow-up this morning more awake and alert currently sitting up in the wheelchair extremely anxious about going home. Case management discussed with him about possible ECF and patient is refusing. Patient is also refusing to have any form of Homecare and reports he has enough help with his family. Patient continues with chronic indwelling Wilkinson catheter and maintained on ceftriaxone and awaiting finalized urine cultures. Preliminary continues to show gram-negative bacilli. Patient is afebrile and denies chest pain or shortness of breath. Kidney functions continue to be elevated although trending down and current creatinine is 2.31. Blood sugars are on the lower side and patient is maintained on sliding scale along with his scheduled dose of long-acting and reports not eating very much. We'll continue to monitor Accu-Cheks before meals and at bedtime and use sliding scale as needed. Review of systems: Constitutional: No reports of fatigue, fever, or chills Cardiovascular: No reports of chest pain or palpitations Respiratory: No reports of shortness of breath or cough GI: No reports of nausea, vomiting, or diarrhea : No reports of dysuria or retention Neurovascular: reports of weakness All medications have been reviewed Active Medications Acetaminophen (Acetaminophen Tab 325 Mg Tab) 650 mg PO Q6HR PRN PRN Reason: Fever and/ or Pain Last Admin: 01/30/22 10:19 Dose: 650 mg Apixaban (Apixaban 5 Mg Tab) 5 mg PO BID [facility]; Protocol Last Admin: 01/30/22 10:18 Dose: 5 mg Atorvastatin Calcium (Atorvastatin 40 Mg Tab) 40 mg PO HS [facility] Last Admin: 01/29/22 21:18 Dose: 40 mg Benztropine Mesylate (Benztropine Mesylate 1 Mg Tab) 1.5 mg PO TID [facility] Last Admin: 01/30/22 10:24 Dose: 1.5 mg Bupropion HCl (Bupropion Sr 150 Mg Tablet.Er) 150 mg PO BID [facility] Last Admin: 01/30/22 10:24 Dose: 150 mg Carvedilol (Carvedilol 6.25 Mg Tab) 6.25 mg PO BID-W/MEALS [facility] Last Admin: 01/30/22 10:18 Dose: 6.25 mg Dextrose/Water (Dextrose 50% Syringe 50 Ml) 50 ml IVP PER PROTOCOL PRN; Protocol PRN Reason: Hypoglycemia Dextrose/Water (Dextrose 50% Syringe 50 Ml) 25 ml IVP PER PROTOCOL PRN; Protocol PRN Reason: Hypoglycemia Gabapentin (Gabapentin 400 Mg Cap) 400 mg PO TID [facility] Last Admin: 01/30/22 10:22 Dose: 400 mg Ceftriaxone Sodium 2 gm/ (Sodium Chloride) 50 mls @ 100 mls/hr IVPB Q24HR [facility]; Protocol Last Admin: 01/30/22 10:23 Dose: 100 mls/hr Sodium Chloride (Saline 0.9%) 1,000 mls @ 75 mls/hr IV .[id number] [facility] Last Admin: 01/30/22 02:14 Dose: Not Given Insulin Aspart (Insulin Aspart (Novolog) 100 Unit/Ml Vial) 0 unit SQ ACHS [facility]; Protocol Last Admin: 01/30/22 12:12 Dose: Not Given Insulin Detemir (Insulin Detemir (Levemir) 100 Unit/Ml Syr) 25 unit SQ HS [facility] Last Admin: 01/29/22 21:10 Dose: Not Given Methylphenidate HCl (Methylphenidate Hcl 10 Mg Tab) 20 mg PO BID [facility] Last Admin: 01/30/22 10:18 Dose: 20 mg Naloxone HCl (Naloxone 0.4 Mg/Ml 1 Ml Vial) 0.2 mg IV Q2M PRN PRN Reason: Opioid Reversal Pantoprazole Sodium (Pantoprazole 40 Mg Tablet) 40 mg PO AC-BRKFST [facility] Last Admin: 01/30/22 10:22 Dose: 40 mg Pilocarpine HCl (Pilocarpine 5 Mg Tab) 5 mg PO TID [facility] Last Admin: 01/30/22 10:24 Dose: 5 mg Polyethylene Glycol (Polyethylene Glycol 3350 17 Gm Powd.Pack) 17 gm PO DAILY [facility] Last Admin: 01/30/22 10:23 Dose: 17 gm Tamsulosin HCl (Tamsulosin 0.4 Mg Cap.Er.24h) 0.4 mg PO DAILY [facility] Last Admin: 01/30/22 10:23 Dose: 0.4 mg Venlafaxine HCl (Venlafaxine Hcl Er 75 Mg Cap) 225 mg PO DAILY [facility] Last Admin: 01/30/22 10:21 Dose: 225 mg Physical exam: Patient is eating up in the wheelchair, no acute distress, awake alert and oriented.. Able to communicate slowly. HEENT: Normocephalic. Neck is supple. Pupils reactive. Nostrils clear. Oral cavity is moist. Neck reveals no JVD, carotid bruits, or thyromegaly. CHEST EXAMINATION: Trachea is central. Symmetrical expansion. Lung márquez clear to auscultation and percussion. CARDIAC: Normal S1, S2 with no gallops. No murmurs ABDOMEN: Soft. Bowel sounds present. Nontender. No organomegaly. No abdominal bruits. Extremities: reveal no edema. No clubbing or cyanosis Neurologically awake, alert, oriented x2-3. Patient does have residual left- sided weakness. Skin: No rash or skin lesions. Psychiatric: Cooperative. Non-suicidal, Musculoskeletal: No joint swelling or deformity. Assessment: Acute on chronic kidney disease stage III. Creatinine level 2.26 on admission. Baseline creatinine around 1.5 Acute urinary tract infection with underlying chronic indwelling Wilkinson catheter, present on admission. Dehydration volume depletion due to poor oral intake Normocytic anemia hemoglobin 8.5 History of CVA with residual left-sided weakness. Hypertension Diabetes type 2 insulin-dependent BPH Obstructive sleep apnea not using CPAP at home Hypothyroidism History of bilateral glaucoma/retinal problems Anxiety/depression bipolar disorder DVT prophylaxis patient is already on Eliquis Plan: Patient will be continued IV hydration with normal saline and continue with antibiotics, ceftriaxone. Urine culture preliminary showing gram negative bacilli and awaiting finalized cultures. Continue with insulin regimen and sliding scale for tight glycemic control. Wilkinson catheter has been replaced and continued home medication including Flomax. PT evaluated the patient recommending possible ecf Although patient is adamant about going home and is refusing any form of rehab or home care and this was discussed with case management. Patient reports he has family that can help. Patient is mostly wheelchair bound. Awaiting finalized culture report of the urine to determine discharge antibiotics. Prognosis is guarded. Possible discharge in 24 hours. The impression and plan of care has been dictated by Jennifer Mcdonnell, Nurse Practitioner as directed. Dr. Andrew MD I have performed a history and examination and MDM of this patient, discussed the same with the dictator, and agree with the dictator's assessment and plan as written ,documented as a scribe. Based on total visit time, I have performed more than 50% of the visit. Objective - Vital Signs Vital signs: Vital Signs Temp 97.9 F 01/30/22 12:05 Pulse 64 01/30/22 12:05 Resp 18 01/30/22 12:05 BP 127/81 01/30/22 12:05 Pulse Ox 96 01/30/22 12:05 FiO2 Intake & Output 01/29/22 01/30/22 01/30/22 18:59 06:59 18:59 Intake Total 1130 Output Total 9972 393 3076 Balance -170 -800 -1050 Intake: Intake, IV Titration 50 Amount cefTRIAXone 2 gm In 50 Sodium Chloride 0.9% 50 ml @ 100 mls/hr IVPB Q24HR [facility] Rx#:[id number] Oral 1080 Output: Urine 0533 014 1340 Other: Voiding Method Indwelling Catheter Indwelling Catheter Indwelling Catheter - Labs CBC & Chem 7: 01/29/22 05:53 01/30/22 06:56 Labs: Abnormal Lab Results - Last 24 Hours (Table) 01/29/22 01/30/22 Range/Units 20:50 06:56 BUN 33 H (9-20) mg/dL Creatinine 2.31 H (0.66-1.25) mg/dL POC Glucose (mg/dL) 111 H (70-110) mg/dL
[2022-01-30 16:52] LABS: Glucose,Whole Blood 128 mg/dL (70-110)
[2022-01-30] MEDS: ATORVASTATIN 40 MG TAB PO SCH (20:10)
[2022-01-30 21:42] LABS: Glucose,Whole Blood 225 mg/dL (70-110)
[2022-01-30 23:35] LABS: Glucose,Whole Blood 95 mg/dL (70-110)
[2022-01-31] MEDS: INSULIN DETEMIR (LEVEMIR) 100 UNIT/ML SYR SQ SCH (00:01)
[2022-01-31] MEDS: amLODIPine 5 MG TAB PO SCH ×2 (02:54→08:32)
[2022-01-31] MEDS: SODIUM CHLORIDE 0.9% 1,000 ML IV SCH (05:34)
[2022-01-31 05:43] LABS: Glucose,Whole Blood 84 mg/dL (70-110)
[2022-01-31 07:03] LABS: Glucose,Whole Blood 76 mg/dL (70-110)
[2022-01-31] MEDS: INSULIN ASPART (NovoLOG) 100 UNIT/ML VIAL SQ SCH ×2 (07:42→12:08)
[2022-01-31] MEDS: carvediloL 6.25 MG TAB PO SCH (08:29)
[2022-01-31] MEDS: TAMSULOSIN 0.4 MG CAP.ER.24H PO SCH (08:29)
[2022-01-31] MEDS: polyethylene glycoL 3350 17 GM POWD.PACK PO SCH (08:29)
[2022-01-31] MEDS: PANTOPRAZOLE 40 MG TABLET PO SCH (08:29)
[2022-01-31] MEDS: METHYLPHENIDATE HCL 10 MG TAB PO SCH (08:29)
[2022-01-31] MEDS: VENLAFAXINE HCL ER 75 MG CAP PO SCH (08:29)
[2022-01-31] MEDS: GABAPENTIN 400 MG CAP PO SCH (08:29)
[2022-01-31] MEDS: buPROPion SR 150 MG TABLET.ER PO SCH (08:30)
[2022-01-31] MEDS: BENZTROPINE MESYLATE 1 MG TAB PO SCH (08:30)
[2022-01-31] MEDS: PILOCARPINE 5 MG TAB PO SCH (08:30)
[2022-01-31] MEDS: APIXABAN 5 MG TAB PO SCH (08:31)
[2022-01-31 11:41] LABS: Glucose,Whole Blood 94 mg/dL (70-110)
[2022-01-31] MEDS ORDERED: amLODIPine 5 MG TAB PO ONE (12:00)
[2022-01-31 13:48] VITALS: RESP 16
[2022-01-31 15:25] VITALS: BP 185/92; PULSE 81; TEMP 98.2
[2022-02-01] MEDS ORDERED: amLODIPine 10 MG TAB PO SCH (09:00)
--- NOTE | 2022-02-02 17:09 | P.DS ---
Providers Date of admission: 01/27/22 20:55 Expected date of discharge: 01/31/22 Attending physician: Maria Luz Johnson Primary care physician: Justine Guillen Hospital Course: Final diagnosis Acute on chronic kidney disease stage III. Creatinine level 2.26 on admission. Baseline creatinine around 1.5 Acute urinary tract infection with underlying chronic indwelling Wilkinson catheter, present on admission. Dehydration volume depletion due to poor oral intake Normocytic anemia hemoglobin 8.5 History of CVA with residual left-sided weakness. Hypertension Diabetes type 2 insulin-dependent BPH Obstructive sleep apnea not using CPAP at home Hypothyroidism History of bilateral glaucoma/retinal problems Anxiety/depression bipolar disorder DVT prophylaxis Discharge disposition Patient is being discharged in a stable condition with guarded prognosis to home. Patient will follow-up with Dr. Guillen in the outpatient setting upon discharge. Patient is to continue on levaquin 500 mg daily for 7 days. Total time taken is greater than 35 minutes. Hospital course This is a 51-year-old male who was recently admitted with UTI weak, dehydration and being closely monitored. Patient had wilkinson changed and final cultures showing enterobacter and was improving on ceftriaxone. Will continue levaquin on discharge. Patient with weakness and encouraged the patient to go to [facility] and patient adamantly refused and will be going home. Patient with a poor appetite, encouraged oral intake. Patient requesting to go home. Currently no reports of chest pain, shortness of breath, or palpitations. Patient is afebrile. No reports of nausea or vomiting and patient is tolerating diet. Patient will be discharged home today with guarded prognosis. High risk for readmission. Recommend repeat labs to monitor kidney functions and close outpatient follow up with DR. Guillen this week. Physical exam: Gen: This is a 51 year old male who is alert and oriented x2-3. well developed, well nourished HEENT: Head is atraumatic, normocephalic. Pupils equal, round. Sclerae is anicteric. NECK: Supple. No JVD. No lymphadenopathy. No thyromegaly. LUNGS: Clear to auscultation. No wheezes or rhonchi. No intercostal retractions. HEART: Regular rate and rhythm. No murmur. ABDOMEN: Soft. Bowel sounds are present. No masses. No tenderness. EXTREMITIES: No pedal edema. No calf tenderness. NEUROLOGICAL: Patient is awake, alert and oriented x3. Cranial nerves 2 through 12 are grossly intact. Please refer to medication reconciliation sheet for a list of medications. The impression and plan of care has been dictated by Jennifer Mcdonnell, Nurse Practitioner as directed. Dr. Andrew MD I have performed a history and examination and MDM of this patient, discussed the same with the dictator, and agree with the dictator's assessment and plan as written ,documented as a scribe. Based on total visit time, I have performed more than 50% of the visit. Patient Condition at Discharge: Fair Plan - Discharge Summary New Discharge Prescriptions: New Levofloxacin [Levaquin] 500 mg PO DAILY 7 Days #7 tab amLODIPine [Norvasc] 10 mg PO DAILY 30 Days #30 tab Acetaminophen Tab [Tylenol] 650 mg PO Q6HR PRN tab PRN Reason: Fever And/ Or Pain Continue Venlafaxine HCl [Effexor XR] 225 mg PO DAILY Omeprazole 40 mg PO DAILY buPROPion HCL [Wellbutrin SR] 150 mg PO BID Methylphenidate HCl 20 mg PO BID Pioglitazone [Actos] 15 mg PO DAILY Pilocarpine [Salagen] 5 mg PO TID Tamsulosin HCl [Flomax] 0.4 mg PO DAILY carvediloL [Coreg] 6.25 mg PO BID-W/MEALS #60 tab Atorvastatin [Lipitor] 40 mg PO HS #30 tab Dapagliflozin Propanediol [Farxiga] 10 mg PO DAILY Dulaglutide [Trulicity] 1.5 mg SQ TH Gabapentin [Neurontin] 400 mg PO TID Benztropine Mesylate [Cogentin] 1.5 mg PO TID polyethylene glycoL 3350 [Miralax] 17 gm PO DAILY Apixaban [Eliquis] 5 mg PO BID #0 Changed Insulin Glargine,Hum.rec.anlog [Basaglar Kwikpen U-100] 15 unit SQ HS #0 Discontinued Midodrine HCl [ProAmatine] 10 mg PO TID@0600,1200,1800 Discharge Medication List Omeprazole 40 mg PO DAILY 03/27/20 [History] Venlafaxine HCl [Effexor XR] 225 mg PO DAILY 03/27/20 [History] buPROPion HCL [Wellbutrin SR] 150 mg PO BID 03/27/20 [History] Methylphenidate HCl 20 mg PO BID 06/29/20 [History] Benztropine Mesylate [Cogentin] 1.5 mg PO TID 09/25/21 [History] Gabapentin [Neurontin] 400 mg PO TID 09/25/21 [History] Pioglitazone [Actos] 15 mg PO DAILY 09/25/21 [History] Pilocarpine [Salagen] 5 mg PO TID 01/04/22 [History] Tamsulosin HCl [Flomax] 0.4 mg PO DAILY 01/04/22 [History] polyethylene glycoL 3350 [Miralax] 17 gm PO DAILY 01/04/22 [History] Atorvastatin [Lipitor] 40 mg PO HS #30 tab 01/08/22 [Rx] carvediloL [Coreg] 6.25 mg PO BID-W/MEALS #60 tab 01/08/22 [Rx] Dapagliflozin Propanediol [Farxiga] 10 mg PO DAILY 01/27/22 [History] Dulaglutide [Trulicity] 1.5 mg SQ TH 01/27/22 [History] Acetaminophen Tab [Tylenol] 650 mg PO Q6HR PRN tab 01/31/22 [Rx] Apixaban [Eliquis] 5 mg PO BID #0 01/31/22 [Rx] Insulin Glargine,Hum.rec.anlog [Basaglar Kwikpen U-100] 15 unit SQ HS #0 01/31/22 [Rx] Levofloxacin [Levaquin] 500 mg PO DAILY 7 Days #7 tab 01/31/22 [Rx] amLODIPine [Norvasc] 10 mg PO DAILY 30 Days #30 tab 01/31/22 [Rx] Follow up Appointment(s)/Referral(s): Justine Guillen MD [Primary Care Provider] - 1-2 days (PLEASE CALL AND MAKE APPOINTMENT.) [facility] [NON-STAFF] - As Needed (Please call [facility] once home to arrange delivery of the new mattress for hospital bed. ) Ambulatory/Diagnostic Orders: Basic Metabolic Panel [LAB.AMB] Time Frame: 3 Days, Location: None Selected Patient Instructions/Handouts: Amlodipine (By mouth), Levofloxacin (By mouth), Dehydration (DC), Acute Kidney Injury (DC), Catheter-associated Urinary Tract Infection (DC) Activity/Diet/Wound Care/Special Instructions: Patient requires a replacement mattress. Activity Limited until follow-up Follow-up with primary care provider upon discharge Continue taking antibiotics until finished Recommend repeat labs in 2-3 days Continue monitoring blood sugars before meals and at bedtime and keep a diary of readings as blood sugars have been lower in the hospital Discuss with primary care provider about medication adjustments Discharge Disposition: HOME SELF-CARE
== END 2022-01-31 16:40 | disposition home or self-care (01) | DRG 699 ==
LOC: EC 17:45 → 4SSUR 20:55
PROVIDERS: ADMIT Hospitalist; ATTEND Hospitalist
DX: T83.510A Infection and inflammatory reaction due to cystostomy catheter, initial encounter (principal); I69.354 Hemiplegia and hemiparesis following cerebral infarction affecting left non-dominant side; N39.0 Urinary tract infection, site not specified; E86.0 Dehydration; E11.41 Type 2 diabetes mellitus with diabetic mononeuropathy; E11.22 Type 2 diabetes mellitus with diabetic chronic kidney disease; E11.43 Type 2 diabetes mellitus with diabetic autonomic (poly)neuropathy; N18.30 Chronic kidney disease, stage 3 unspecified; I12.9 Hypertensive chronic kidney disease with stage 1 through stage 4 chronic kidney disease, or unspecified chronic kidney disease; E03.9 Hypothyroidism, unspecified; F31.9 Bipolar disorder, unspecified; D63.1 Anemia in chronic kidney disease; K31.84 Gastroparesis; N40.0 Benign prostatic hyperplasia without lower urinary tract symptoms; G47.33 Obstructive sleep apnea (adult) (pediatric); H40.9 Unspecified glaucoma; F41.9 Anxiety disorder, unspecified; G47.30 Sleep apnea, unspecified; R63.0 Anorexia; D18.03 Hemangioma of intra-abdominal structures; Y73.1 Therapeutic (nonsurgical) and rehabilitative gastroenterology and urology devices associated with adverse incidents; Z20.822 Contact with and (suspected) exposure to COVID-19; Z68.30 Body mass index [BMI] 30.0-30.9, adult; Z79.84 Long term (current) use of oral hypoglycemic drugs; Z79.899 Other long term (current) drug therapy; Z79.01 Long term (current) use of anticoagulants; Z79.4 Long term (current) use of insulin; Z91.011 Allergy to milk products; Z86.14 Personal history of Methicillin resistant Staphylococcus aureus infection; Z87.440 Personal history of urinary (tract) infections
CPT/HCPCS: 36415; 51798; 74018; 76770; 80048; 80053; 81001; 82009; 82150; 83036; 83605; 83690; 85025; 85610; 85730; 87077; 87086; 87186; 87635; 93005; 96361; 96374; 96375; 96376; 99285

== ENCOUNTER 2022-02-07 10:43 | Emergency (ER) | payer OTHER ==
[2022-02-07 10:51] VITALS: TEMP 98.2
[2022-02-07] MEDS ORDERED: SODIUM CHLORIDE 0.9% 500 ML 500 ML IV STA (11:20)
--- NOTE | 2022-02-07 11:29 | ED ---
General Adult HPI - General Chief complaint: Urogenital Stated complaint: Dehydration, AMS Time Seen by Provider: 02/07/22 10:57 Source: patient, RN notes reviewed, Caregiver Mode of arrival: wheelchair Limitations: physical limitation - History of Present Illness Initial comments: This a 51-year-old male presents emergency from with caregiver for evaluation of possible urinary tract infection, increasing confusion and altered mental status. Patient had recent hospital admission for UTI discharge on Levaquin did finish course of antibiotics but they state that his urine has become increasingly cloudy, thick is complaining of discomfort of his catheter. Patient has had Rosado catheter for several months has been exchange in the past. Patient is in a wheelchair from prior CVA.. They that and like patient to be sent to rehab as he has increasing to be getting around increasing weakness patient hadn't noted fever, elevated heart rate. - Related Data Home Medications Medication Instructions Recorded Confirmed Omeprazole 40 mg PO DAILY 03/27/20 02/07/22 Venlafaxine HCl [Effexor XR] 225 mg PO DAILY 03/27/20 02/07/22 buPROPion HCL [Wellbutrin SR] 150 mg PO BID 03/27/20 02/07/22 Methylphenidate HCl 20 mg PO BID 06/29/20 02/07/22 Benztropine Mesylate [Cogentin] 1.5 mg PO TID 09/25/21 02/07/22 Gabapentin [Neurontin] 400 mg PO TID 09/25/21 02/07/22 Pioglitazone [Actos] 15 mg PO DAILY 09/25/21 02/07/22 Pilocarpine [Salagen] 5 mg PO TID 01/04/22 02/07/22 Tamsulosin HCl [Flomax] 0.4 mg PO DAILY 01/04/22 02/07/22 polyethylene glycoL 3350 [Miralax] 17 gm PO DAILY 01/04/22 02/07/22 Dapagliflozin Propanediol [Farxiga] 10 mg PO DAILY 01/27/22 02/07/22 Dulaglutide [Trulicity] 1.5 mg SQ TH 01/27/22 02/07/22 Insulin Glargine,Hum.rec.anlog 25 unit SQ HS 02/07/22 02/07/22 [Basaglar Kwikpen U-100] Midodrine HCl [ProAmatine] 10 mg PO TID@0600,1200,1800 02/07/22 02/07/22 Rosuvastatin [Crestor] 20 mg PO DAILY 02/07/22 02/07/22 Previous Rx's Medication Instructions Recorded Atorvastatin [Lipitor] 40 mg PO HS #30 tab 01/08/22 carvediloL [Coreg] 6.25 mg PO BID-W/MEALS #60 tab 01/08/22 Acetaminophen Tab [Tylenol] 650 mg PO Q6HR PRN tab 01/31/22 Apixaban [Eliquis] 5 mg PO BID #0 01/31/22 amLODIPine [Norvasc] 10 mg PO DAILY 30 Days #30 tab 01/31/22 Ciprofloxacin HCl [Cipro] 500 mg PO Q12HR #14 tablet 02/07/22 Allergies Allergy/AdvReac Type Severity Reaction Status Date / Time lactose AdvReac Nausea & Verified 02/07/22 10:51 Vomiting & Diarrhea Review of Systems ROS Statement: Those systems with pertinent positive or pertinent negative responses have been documented in the HPI. ROS Other: All systems not noted in ROS Statement are negative. 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/walks short distances with walker, IDDM type II, neuropathy bilateral legs/feet, gastroparesis, autonomic dysfunction, CKD stage III, BPH, hypotension at times, vertigo when first stands, ELISSA/does not wear his cpap, hypothyroid, bilateral glaucoma/retinal problems History of Any Multi-Drug Resistant Organisms: MRSA Date of last positivie culture/infection: 04/22/16 MDRO Source:: Right Hand Past Surgical History: Orthopedic Surgery Additional Past Surgical History / Comment(s): Recent 6 teeth extracted, PETRA, bilateral eye retinal scraping, bilateral eye cataract removals, colonoscopies Past Anesthesia/Blood Transfusion Reactions: No Reported Reaction Past Psychological History: Anxiety, Bipolar, Depression Smoking Status: Never smoker Past Alcohol Use History: None Reported Past Drug Use History: None Reported - Past Family History Mother Family Medical History: Diabetes Mellitus, Renal Disease Additional Family Medical History / Comment(s): Mother is alive at age 61 with history of diabetes (wears insulin pump). Brother(s) Additional Family Medical History / Comment(s): Patient has 2 brothers and one has history of diabetes and one has no major medical problems. General Exam Limitations: physical limitation General appearance: alert, in no apparent distress Head exam: Present: atraumatic, normocephalic, normal inspection Eye exam: Present: normal appearance, PERRL, EOMI. Absent: scleral icterus, conjunctival injection, periorbital swelling ENT exam: Present: normal exam, normal oropharynx, mucous membranes moist Neck exam: Present: normal inspection, full ROM. Absent: tenderness, meningismus, lymphadenopathy Respiratory exam: Present: normal lung sounds bilaterally. Absent: respiratory distress, wheezes, rales, rhonchi, stridor Cardiovascular Exam: Present: normal rhythm, tachycardia, normal heart sounds. Absent: systolic murmur, diastolic murmur, rubs, gallop, clicks GI/Abdominal exam: Present: soft, normal bowel sounds. Absent: distended, tenderness, guarding, rebound, rigid Back exam: Absent: CVA tenderness (R), CVA tenderness (L) Course Vital Signs 02/07/22 02/07/22 10:46 14:37 Temperature 98.2 F Pulse Rate 139 H 74 Respiratory 18 16 Rate Blood Pressure 129/80 185/98 O2 Sat by Pulse 90 L 97 Oximetry Medical Decision Making - Medical Decision Making 51-year-old male presented from for possible UTI, caregiver stating that he needs more care at home. Patient does have evidence of urinary tract infection. Chart was reviewed and was found the patient was set up with home health care from [place] patient has refused care at home, now patient door for [facility] home health care. This was resected up family was instructed on his care at home and discharge of oral antibiotics. - Lab Data Result diagrams: 02/07/22 11:25 02/07/22 11:54 Lab Results 02/07/22 02/07/22 02/07/22 Range/Units 11:25 11:25 11:25 WBC 8.0 (3.8-10.6) k/uL RBC 3.46 L (4.30-5.90) m/uL Hgb 9.2 L (13.0-17.5) gm/dL Hct 29.2 L (39.0-53.0) % MCV 84.3 (80.0-100.0) fL MCH 26.7 (25.0-35.0) pg MCHC 31.7 (31.0-37.0) g/dL RDW 14.6 (11.5-15.5) % Plt Count 258 (150-450) k/uL MPV 7.6 Neutrophils % 68 % Lymphocytes % 22 % Monocytes % 5 % Eosinophils % 3 % Basophils % 0 % Neutrophils # 5.5 (1.3-7.7) k/uL Lymphocytes # 1.7 (1.0-4.8) k/uL Monocytes # 0.4 (0-1.0) k/uL Eosinophils # 0.2 (0-0.7) k/uL Basophils # 0.0 (0-0.2) k/uL Hypochromasia Slight Sodium (137-145) mmol/L Potassium (3.5-5.1) mmol/L Chloride (98-107) mmol/L Carbon Dioxide (22-30) mmol/L Anion Gap mmol/L BUN (9-20) mg/dL Creatinine (0.66-1.25) mg/dL Est GFR (CKD-EPI)AfAm (>60 ml/min/1.73 sqM) Est GFR (CKD-EPI)NonAf (>60 ml/min/1.73 sqM) Glucose (74-99) mg/dL Plasma Lactic Acid Andrea 0.8 (0.7-2.0) mmol/L Calcium (8.4-10.2) mg/dL Phosphorus (2.5-4.5) mg/dL Magnesium (1.6-2.3) mg/dL Total Bilirubin (0.2-1.3) mg/dL AST (17-59) U/L ALT (4-49) U/L Alkaline Phosphatase (38-126) U/L Total Protein (6.3-8.2) g/dL Albumin (3.5-5.0) g/dL Amylase (30-110) U/L Lipase (23-300) U/L Urine Color Light Yellow Urine Appearance Cloudy (Clear) Urine pH 6.0 (5.0-8.0) Ur Specific Protection 1.016 (1.001-1.035) Urine Protein 3+ H (Negative) Urine Glucose (UA) 3+ H (Negative) Urine Ketones Negative (Negative) Urine Blood Moderate H (Negative) Urine Nitrite Negative (Negative) Urine Bilirubin Negative (Negative) Urine Urobilinogen <2.0 (<2.0) mg/dL Ur Leukocyte Esterase Large H (Negative) Urine RBC 52 H (0-5) /hpf Urine WBC 43 H (0-5) /hpf Urine WBC Clumps Few H (None) /hpf Ur Squamous Epith Cells <1 (0-4) /hpf Urine Bacteria Rare H (None) /hpf Hyaline Casts 49 H (0-2) /lpf Urine Mucus Rare H (None) /hpf Urine Yeast (Budding) Many H (None) /hpf 02/07/22 Range/Units 11:54 WBC (3.8-10.6) k/uL RBC (4.30-5.90) m/uL Hgb (13.0-17.5) gm/dL Hct (39.0-53.0) % MCV (80.0-100.0) fL MCH (25.0-35.0) pg MCHC (31.0-37.0) g/dL RDW (11.5-15.5) % Plt Count (150-450) k/uL MPV Neutrophils % % Lymphocytes % % Monocytes % % Eosinophils % % Basophils % % Neutrophils # (1.3-7.7) k/uL Lymphocytes # (1.0-4.8) k/uL Monocytes # (0-1.0) k/uL Eosinophils # (0-0.7) k/uL Basophils # (0-0.2) k/uL Hypochromasia Sodium 140 (137-145) mmol/L Potassium 4.8 (3.5-5.1) mmol/L Chloride 105 (98-107) mmol/L Carbon Dioxide 24 (22-30) mmol/L Anion Gap 11 mmol/L BUN 41 H (9-20) mg/dL Creatinine 2.91 H (0.66-1.25) mg/dL Est GFR (CKD-EPI)AfAm 28 (>60 ml/min/1.73 sqM) Est GFR (CKD-EPI)NonAf 24 (>60 ml/min/1.73 sqM) Glucose 71 L (74-99) mg/dL Plasma Lactic Acid Andrea (0.7-2.0) mmol/L Calcium 8.8 (8.4-10.2) mg/dL Phosphorus 4.3 (2.5-4.5) mg/dL Magnesium 1.9 (1.6-2.3) mg/dL Total Bilirubin 0.4 (0.2-1.3) mg/dL AST 37 (17-59) U/L ALT 32 (4-49) U/L Alkaline Phosphatase 88 (38-126) U/L Total Protein 6.9 (6.3-8.2) g/dL Albumin 4.2 (3.5-5.0) g/dL Amylase 46 (30-110) U/L Lipase 40 (23-300) U/L Urine Color Urine Appearance (Clear) Urine pH (5.0-8.0) Ur Specific Protection (1.001-1.035) Urine Protein (Negative) Urine Glucose (UA) (Negative) Urine Ketones (Negative) Urine Blood (Negative) Urine Nitrite (Negative) Urine Bilirubin (Negative) Urine Urobilinogen (<2.0) mg/dL Ur Leukocyte Esterase (Negative) Urine RBC (0-5) /hpf Urine WBC (0-5) /hpf Urine WBC Clumps (None) /hpf Ur Squamous Epith Cells (0-4) /hpf Urine Bacteria (None) /hpf Hyaline Casts (0-2) /lpf Urine Mucus (None) /hpf Urine Yeast (Budding) (None) /hpf Disposition Clinical Impression: UTI (urinary tract infection) Disposition: HOME SELF-CARE Condition: Stable Instructions (If sedation given, give patient instructions): Urinary Tract Infection in Men (ED) Additional Instructions: Please return to the Emergency Department if symptoms worsen or any other concerns. Prescriptions: Ciprofloxacin HCl [Cipro] 500 mg PO Q12HR #14 tablet Is patient prescribed a controlled substance at d/c from ED?: No [facility] - [facility]-2 days Justine Guillen MD [Primary Care Provider] - 1-2 days Time of Disposition: 14:51
[2022-02-07 11:59] LABS: Basophils % (A) 0 %; Eosinophils # (A) 0.2 k/uL (0-0.7); Eosinophils % (A) 3 %; HCT 29.2 % (39.0-53.0); HGB 9.2 gm/dL (13.0-17.5); Hypochromasia Slight; Lymphocytes # (A) 1.7 k/uL (1.0-4.8); Lymphocytes % (A) 22 %; MCH 26.7 pg (25.0-35.0); MCHC 31.7 g/dL (31.0-37.0); MCV 84.3 fL (80.0-100.0); Mean Platelet Volume 7.6; Monocytes # (A) 0.4 k/uL (0-1.0); Monocytes % (A) 5 %; Neutrophils # (A) 5.5 k/uL (1.3-7.7); Neutrophils % (A) 68 %; Platelet Count 258 k/uL (150-450); RBC 3.46 m/uL (4.30-5.90); RDW 14.6 % (11.5-15.5)
[2022-02-07 12:12] LABS: Albumin 4.2 g/dL (3.5-5.0); Calcium 8.8 mg/dL (8.4-10.2); Magnesium 1.9 mg/dL (1.6-2.3); Phosphorus 4.3 mg/dL (2.5-4.5); Potassium 4.8 mmol/L (3.5-5.1); Total Bilirubin 0.4 mg/dL (0.2-1.3); Total Protein 6.9 g/dL (6.3-8.2)
[2022-02-07 13:57] LABS: Appearance,Urine Cloudy (Clear); Bacteria,Urine Rare /hpf; Bilirubin,Urine Negative (Negative); Blood,Urine Moderate (Negative); Budding Yeast,Urine Many /hpf; Color,Urine Light Yellow; Glucose,Urine (UA) 3+ (Negative); Hyaline Casts,Urine 49 /lpf (0-2); Ketones,Urine Negative (Negative); Leukocyte Esterase,Urine Large (Negative); Mucus,Urine Rare /hpf; Nitrite,Urine Negative (Negative); Protein,Urine 3+ (Negative); RBC,Urine 52 /hpf (0-5); Specific Gravity,Urine 1.016 (1.001-1.035); Squamous Epithelial Cell,Urine <1 /hpf (0-4); Urobilinogen,Urine <2.0 mg/dL (<2.0); WBC,Urine 43 /hpf (0-5)
[2022-02-07 15:06] VITALS: BP 177/91; PULSE 72; RESP 18
== END 2022-02-07 16:29 | disposition home or self-care (01) ==
LOC: EC 10:43
DX: N39.0 Urinary tract infection, site not specified (principal); Z86.73 Personal history of transient ischemic attack (TIA), and cerebral infarction without residual deficits; E11.9 Type 2 diabetes mellitus without complications; K21.9 Gastro-esophageal reflux disease without esophagitis; I12.9 Hypertensive chronic kidney disease with stage 1 through stage 4 chronic kidney disease, or unspecified chronic kidney disease; N18.9 Chronic kidney disease, unspecified; E03.9 Hypothyroidism, unspecified; F41.9 Anxiety disorder, unspecified; F31.9 Bipolar disorder, unspecified; Z91.011 Allergy to milk products; Z79.4 Long term (current) use of insulin; Z79.899 Other long term (current) drug therapy
CPT/HCPCS: 36415; 80053; 81001; 82150; 83605; 83690; 83735; 84100; 85025; 87040; 87086; 93005; 96360; 96361; 99284

== ENCOUNTER 2022-04-29 06:45 | Day surgery (SDC) | payer OTHER ==
[2022-04-26 11:17] VITALS: BMI 26.6
[~2022-04-29 06:45] MED LIST changes: +ACETAMINOPHEN TAB 500 MG TAB PO PRN; +DEXAMETHASONE SOD PHOSPHATE 4 MG/ML 1 ML VIAL IV ONE; -DOBUTamine DRIP for NUC MED 500 MG in DEXTROSE/WATER 1 250ML.BAG IV ONE; +HEPARIN SODIUM,PORCINE/PF 5,000 UNIT/0.5 ML SYRINGE SQ PRN; +LACTATED RINGERS 1,000 ML IV SCH; +MIDAZOLAM 2 MG/2 ML VIAL IV PRN; +ONDANSETRON 4 MG/2 ML VIAL IVP ONE; +Pre Op ABX Message 1 EACH MISC MISCELLANE ONE; +SCOPOLAMINE 1 MG/72 HR PATCH TRANSDERM ONE
[2022-04-29] MEDS ORDERED: HYDROmorphone 0.5 MG/0.5 ML SYRINGE IVP PRN (07:00)
[2022-04-29 07:25] VITALS: TEMP 97.7
[2022-04-29 07:35] LABS: Glucose,Whole Blood 168 mg/dL (70-110)
[2022-04-29] MEDS ORDERED: fentaNYL (PF) 50 MCG/ML 2 ML AMP ONE (07:48)
[2022-04-29] MEDS ORDERED: PROPOFOL 10 MG/ML 20 ML VIAL IV ONE (07:48)
[2022-04-29] MEDS ORDERED: ENALAPRILAT 1.25 MG/ML 1 ML VIAL ONE (07:48)
[2022-04-29] MEDS ORDERED: MIDAZOLAM 2 MG/2 ML VIAL ONE (07:48)
[2022-04-29] MEDS ORDERED: SODIUM CHLORIDE 0.9% 50 ML with ceFAZolin 2,000 MG IV ONE ×2 (07:52)
[2022-04-29] MEDS ORDERED: ENALAPRILAT 1.25 MG/ML 1 ML VIAL IVP ONE (07:53)
[2022-04-29] MEDS ORDERED: BUPIVACAIN-EPI 0.25%-1:200,000 30 ML VIAL SQ ONE (08:17)
--- NOTE | 2022-04-29 08:33 | P.OP ---
Date of Procedure: 04/29/22 Preoperative Diagnosis: Left chest wall mass Postoperative Diagnosis: Left chest wall mass Procedure(s) Performed: Excision of left chest wall mass Anesthesia: MAC Surgeon: Slade Abreu Estimated Blood Loss (ml): 5 Pathology: other (Inflamed chest wall mass) Condition: stable Disposition: PACU Description of Procedure: Patient's placed on the operative table in the supine position. He received IV sedation. His left chest wall was prepped and draped usual fashion. The area was anesthetized 1% local Xylocaine. Using a 15 blade the skin was incised over the mass. There was a cavity and some inflamed tissue suggested. Infection. The area was sharply debrided and excised and sent to pathology. The mass measured prostate 1 x 5 cm. A Rachelle drain is placed in the wound and secured to the skin at the incision site. The skin was then closed interrupted 2-0 nylon suture. Sterile dressings was applied. Patient top she will sent to recovery room in stable condition.
[2022-04-29 08:41] LABS: Glucose,Whole Blood 204 mg/dL (70-110)
[2022-04-29 08:55] VITALS: BP 157/84; PULSE 88; RESP 18
== END 2022-04-29 09:45 | disposition home or self-care (01) ==
LOC: OR 06:45
PROVIDERS: ATTEND Surgery
DX: R22.2 Localized swelling, mass and lump, trunk (principal); M79.89 Other specified soft tissue disorders; I10 Essential (primary) hypertension; G47.33 Obstructive sleep apnea (adult) (pediatric); E11.9 Type 2 diabetes mellitus without complications; E07.9 Disorder of thyroid, unspecified; F41.9 Anxiety disorder, unspecified; K21.9 Gastro-esophageal reflux disease without esophagitis; Z79.899 Other long term (current) drug therapy
CPT/HCPCS: 21933; J2250; J2405; J0690; J3010; J2704; J1644; 88307

== ENCOUNTER 2022-09-25 06:03 | Day surgery (SDC) | payer OTHER ==
[2022-09-25] MEDS ORDERED: ONDANSETRON 4 MG/2 ML VIAL IVP ONE (06:37)
[2022-09-25] MEDS ORDERED: LACTATED RINGERS 1,000 ML IV SCH (06:37)
[2022-09-25] MEDS ORDERED: LIDOCAINE 1% (10MG/ML) FOR IV START INTRADERMA PRN (06:37)
[2022-09-25] MEDS ORDERED: SODIUM CHLORIDE 0.9% 1,000 ML IV ONE (06:56)
[2022-09-25] MEDS ORDERED: FAMOTIDINE 20 MG/2 ML VIAL IV PRN (07:00)
[2022-09-25] MEDS ORDERED: HYDROmorphone 0.5 MG/0.5 ML SYRINGE IVP PRN (07:00)
--- NOTE | 2022-09-25 07:32 | P.HPIHPCON ---
History of Present Illness H&P Date: 09/25/22 Chief Complaint: esrd 51 year old gentleman presents to the hospital for left upper extremity fistula vs. graft creation for hemodialysis. He has ESRD and is on HD via right chest catheter. He does have a history of CVA with left upper extremity paralysis and states he does everything with his right arm and therefore would like access on the left arm. He had an ultrasound which demonstrated marginal size of the left cephalic vein. He denies any fevers, chills, chest pain or shortness of breath. Consent for Procedure: I have explained the operation/procedure to the patient, including the risks, benefits, side effects, alternative therapies (including not receiving the proposed treatment or service), the likelihood of the patient achieving his/her goals, and potential recuperation problems for the procedure/sedation/analgesia, as well as any blood products, if indicated. I also explained to the patient the risks, benefits and side effects of the alternatives, as well as the risks related to not receiving the proposed procedure, care, treatment, or services. - Review of Systems All systems: negative (what is mentioned in the PMH and HPI) Past Medical History Past Medical History: Heart Failure, CVA/TIA, Diabetes Mellitus, Eye Disorder, GERD/Reflux, Hypertension, Musculoskeletal Disorder, Prostate Disorder, Renal Disease, Sleep Apnea/CPAP/BIPAP Additional Past Medical History / Comment(s): CVA in 2018 and 2020/L arm paralysis and L leg weakness/stands and pivots to wheelchair, hx falls., IDDM type II, neuropathy bilateral legs/feet, gastroparesis, autonomic dysfunction, CKD/hemodialysis on //, BPH, hypotension at times, vertigo when first stands, ELISSA/does not wear his cpap, bilateral glaucoma/retinal problems , anemia, torn right rotator cuff., pain left arm,neck and back., pt has recurrent UTI, indwelling wilkinson catheter. History of Any Multi-Drug Resistant Organisms: MRSA Date of last positivie culture/infection: 04/22/16 MDRO Source:: Right Hand Past Surgical History: Orthopedic Surgery Additional Past Surgical History / Comment(s): Current R chest hemodialysis catheter, PETRA, bilateral eye retinal scraping, cataracts., colonoscopies., RIGHT HAND SURGERY, cystectomy flank. Past Anesthesia/Blood Transfusion Reactions: No Reported Reaction, Motion Sickness Additional Past Anesthesia/Blood Transfusion Reaction / Comment(s): Pt has had blood transfusion without reaction. Smoking Status: Never smoker - Past Family History Mother Family Medical History: Diabetes Mellitus, Renal Disease Additional Family Medical History / Comment(s): Mother is alive at age 67yrs with history of diabetes (wears insulin pump).. Brother(s) Family Medical History: Diabetes Mellitus Additional Family Medical History / Comment(s): Patient has 2 brothers and one has history of diabetes and one has no major medical problems. Medications and Allergies Home Medications Medication Instructions Recorded Confirmed Type Omeprazole 20 mg PO BID 03/27/20 09/23/22 History Apixaban [Eliquis] 5 mg PO BID #0 01/31/22 09/23/22 Rx Ondansetron [Zofran] 4 mg PO QID PRN 04/26/22 09/23/22 History Fexofenadine HCl [Ana Allergy] 180 mg PO DAILY PRN 06/16/22 09/23/22 History Insulin NPH Hum/Reg Insulin Hm 17 unit SQ QAM 06/16/22 09/23/22 History [humuLIN 70/30 Kwikpen] Methenamine Hippurate [Hiprex] 1 gm PO BID 06/16/22 09/23/22 History Venlafaxine HCl ER [Effexor XR] 150 mg PO QAM 06/16/22 09/23/22 History cloNIDine 0.2 MG/24HR PATCH 1 patch TRANSDERM MO 06/16/22 09/23/22 History [Catapres-TTS] modafiniL [Provigil] 200 mg PO BID@0900,1200 06/16/22 09/23/22 History Acetaminophen Tab [Tylenol] 650 mg PO Q6HR PRN tab 06/24/22 09/23/22 Rx Aspirin 81 mg PO QAM 09/23/22 09/23/22 History Ergocalciferol [Vitamin D2 (1250 1,250 mcg PO WE 09/23/22 09/23/22 History Mcg = 18885 Iu)] Losartan Potassium 50 mg PO HS 09/23/22 09/23/22 History Meclizine [Antivert] 25 mg PO QAM PRN 09/23/22 09/23/22 History Metoprolol Succinate (ER) [Toprol 25 mg PO QAM 09/23/22 09/23/22 History XL] Sevelamer Carbonate 1,600 mg PO ACHS 09/23/22 09/23/22 History Torsemide [Demadex] 40 mg PO QAM 09/23/22 09/23/22 History amLODIPine [Norvasc] 10 mg PO QAM 09/23/22 09/23/22 History buPROPion HCL [buPROPion HCL SR] 150 mg PO QAM 09/23/22 09/23/22 History hydrALAZINE HCL [Apresoline] 50 mg PO TID-W/MEALS 09/23/22 09/23/22 History Allergies Allergy/AdvReac Type Severity Reaction Status Date / Time lactose AdvReac Nausea & Verified 09/23/22 10:13 Vomiting & Diarrhea Assessment and Plan Assessment: ESRD history of CVA with left sided paralysis Plan: Left upper extremity brachio-cephalic fistula creation vs. graft creation. Discussed with patient that a fistula will be attempted but if vein is not suitable then will place graft
[2022-09-25 07:42] VITALS: TEMP 96.6
[2022-09-25] MEDS ORDERED: MIDAZOLAM 2 MG/2 ML VIAL IVP ONE (07:43)
[2022-09-25 07:44] LABS: Glucose,Whole Blood 191 mg/dL (70-110)
[2022-09-25 07:47] LABS: Basophils % (A) 1 %; Eosinophils # (A) 0.2 k/uL (0-0.7); Eosinophils % (A) 3 %; Lymphocytes # (A) 1.2 k/uL (1.0-4.8); Lymphocytes % (A) 16 %; MCH 26.4 pg (25.0-35.0); MCHC 32.4 g/dL (31.0-37.0); MCV 81.5 fL (80.0-100.0); Mean Platelet Volume 6.9; Monocytes # (A) 0.3 k/uL (0-1.0); Monocytes % (A) 5 %; Neutrophils # (A) 5.5 k/uL (1.3-7.7); Neutrophils % (A) 75 %; Platelet Count 364 k/uL (150-450); RBC 4.17 m/uL (4.30-5.90); RDW 15.5 % (11.5-15.5); WBC 7.3 k/uL (3.8-10.6)
[2022-09-25] MEDS ORDERED: fentaNYL (PF) 50 MCG/ML 2 ML AMP ONE (07:54)
[2022-09-25] MEDS ORDERED: ROPIVACAINE 5 MG/ML 30 ML VIAL ONE (07:54)
[2022-09-25] MEDS ORDERED: PROPOFOL 10 MG/ML 20 ML VIAL IV ONE (07:54)
[2022-09-25] MEDS ORDERED: KETAMINE 10 MG/ML 20 ML VIAL ONE (07:54)
[2022-09-25] MEDS ORDERED: MIDAZOLAM 2 MG/2 ML VIAL ONE (07:54)
[2022-09-25 08:02] LABS: ALT 13 U/L (4-49); AST 16 U/L (17-59); African American GFR (CKD) 14 (>60 ml/min/1.73 sqM); Albumin 4.3 g/dL (3.5-5.0); Alkaline Phosphatase 115 U/L (38-126); Anion Gap 13 mmol/L; Blood Urea Nitrogen 46 mg/dL (9-20); Calcium 9.3 mg/dL (8.4-10.2); Carbon Dioxide 31 mmol/L (22-30); Chloride 96 mmol/L (98-107); Glucose 198 mg/dL (74-99); Non-African American GFR(CKD) 12 (>60 ml/min/1.73 sqM); Potassium 4.4 mmol/L (3.5-5.1); Sodium 140 mmol/L (137-145); Total Bilirubin 0.3 mg/dL (0.2-1.3); Total Protein 7.3 g/dL (6.3-8.2)
[2022-09-25] MEDS ORDERED: LIDOCAINE 1% INJ 10MG/ML (20 ML MDV) SQ ONE (08:28)
[2022-09-25] MEDS ORDERED: THROMBIN (BOVINE) 5,000 UNIT VIAL TOPICAL ONE (08:29)
[2022-09-25] MEDS ORDERED: GELATIN SPONGE,ABSORB (LARGE) 1 EACH SPONGE TOPICAL ONE (08:29)
[2022-09-25] MEDS ORDERED: ceFAZolin 2,000 MG in SODIUM CHLORIDE 0.9% 500 ML IRRIGATION ONE (08:30)
[2022-09-25] MEDS ORDERED: HEPARIN SODIUM,PORCINE 2,000 UNIT in SODIUM CHLORIDE 0.9% 500 ML 500 ML IRRIGATION ONE (08:30)
--- NOTE | 2022-09-25 08:43 | P.ANPRN ---
Procedure Note - Anesthesia - Nerve Block Performed Left Supraclavicular Time Out Performed: Yes (07:42) Date of Procedure: 09/25/22 Procedure Start Time: : Procedure Stop Time: :47 Location of Patient: PreOp Indication: Acute Post-Operative Pain, Requested by Surgeon (Dr Leung) Sedation Type: Sedate with meaningful contact maintained Preparation: Sterile Prep Position: Supine Catheter: None Needle Types: Pajunk Needle Gauge: Other (see comment) (22g) Ultrasound used to visualize needle placement: Yes Ultrasound used to observe medication spread: Yes Injectate: 0.5% Ropivacaine (see comment for volume) (20cc) Blood Aspirated: No Pain Paresthesia on Injection Noted: No Resistance on Injection: Normal Image Stored and Saved: Yes Events: Uneventful and Well Tolerated
[2022-09-25 09:44] VITALS: RESP 16
[2022-09-25] MEDS ORDERED: ACETAMINOPHEN TAB 325 MG TAB PO STA (10:19)
[2022-09-25] MEDS ORDERED: ACETAMINOPHEN TAB 325 MG TAB ONE (10:20)
--- NOTE | 2022-09-25 10:21 | P.OP ---
Date of Procedure: 09/25/22 Preoperative Diagnosis: End-stage renal disease Postoperative Diagnosis: Same Procedure(s) Performed: Left upper extremity brachio-cephalic arteriovenous fistula creation Anesthesia: MAC Surgeon: Tello Leung Estimated Blood Loss (ml): 20 Pathology: none sent Condition: stable Disposition: PACU Indications for Procedure: 51-year-old gentleman with incisional disease on hemodialysis via right chest catheter presents to the hospital for creation of left upper extremity arteri ovenous fistula. 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 Description of Procedure: After written and informed consent was obtained from the patient the patient was brought to the operative suite and laid in a supine position. The left arm was prepped and draped in the usual sterile fashion after appropriate anesthesia was performed per the anesthesiologist. Utilizing ultrasound the cephalic vein was visualized and marked and shown to be good size. A small vertical incision was then created with a 15 blade scalpel just proximal to the elbow and dissection was carried down to the brachial artery which was dissected free in a circumferential manner. Proximal distal control was then obtained with vessel loops. Attention was then placed back to the cephalic vein which was located and dissected free in a circumferential manner distally to the elbow At the elbow it was ligated with silk suture. Further dissection was carried around the vein and the vein was brought over to the brachial artery. Serial dilation was then performed on the vein and good backbleeding was noted. Patient was administered 3000 units of heparin and the radial artery was clamped at the proximal and distal aspect. Utilizing 11 blade scalpel and arteriotomy was created and extended with Pott Sandoval scissors. There was good brisk backbleeding noted from the brachial artery and pulsatile blood flow visualized from the proximal aspect. The vein was then spatulated and an end-to-side anastomosis was created with a 7-0 Prolene suture. Prior to last sutures being placed the control was released from the vein revealing good backbleeding and distal control on the brachial artery was released revealing good back flow. The proximal control was then released and good pulsatile blood flow was visualized in the fistula and final sutures were secured. The area was copiously irrigated with antibiotic solution. Hemostasis was assured. The vessels were then interrogated with Doppler which demonstrated good multiphasic signal distal to the anastomosis as well as positive bruit within the vein consistent with good fistula creation. Under ultrasound there was pulsatile flow noted in the cephalic vein. The incision was then closed in a multilayer fashion. The skin was cleansed and dressings were placed. Patient does procedure well and was sent to PACU for recovery.
[2022-09-25 10:23] VITALS: BP 151/88; PULSE 70
== END 2022-09-25 10:59 | disposition home health service (06) ==
LOC: OR 06:03
PROVIDERS: ATTEND Surgery
DX: I13.2 Hypertensive heart and chronic kidney disease with heart failure and with stage 5 chronic kidney disease, or end stage renal disease (principal); N18.6 End stage renal disease; I50.9 Heart failure, unspecified; Z99.2 Dependence on renal dialysis; D63.1 Anemia in chronic kidney disease; E11.22 Type 2 diabetes mellitus with diabetic chronic kidney disease; F41.9 Anxiety disorder, unspecified; F32.A Depression, unspecified; Z86.73 Personal history of transient ischemic attack (TIA), and cerebral infarction without residual deficits; Z99.3 Dependence on wheelchair; G83.9 Paralytic syndrome, unspecified; Z83.3 Family history of diabetes mellitus; Z84.1 Family history of disorders of kidney and ureter; G89.18 Other acute postprocedural pain; Z79.01 Long term (current) use of anticoagulants; Z79.4 Long term (current) use of insulin; Z79.899 Other long term (current) drug therapy
CPT/HCPCS: 36821; 64415; 80053; 85025; J2250; J1644; J0690 ×2; J2405; J2001; J3010; J2795; J2704

== ENCOUNTER 2023-02-25 07:33 | Inpatient (IN) | payer MEDICARE, OTHER ==
--- NOTE | 2023-02-25 07:47 | ED ---
General Adult HPI - General Chief complaint: Dizziness Stated complaint: poss HTN,N/V Time Seen by Provider: 02/25/23 07:38 Source: patient, RN notes reviewed, old records reviewed Mode of arrival: EMS Limitations: no limitations - History of Present Illness Initial comments: 52-year-old male history type 1 diabetes, end-stage renal disease presenting f rom the dialysis center with vomiting. Patient states that he missed his treatment on Friday and was unable to start treatment today secondary to vomiting. He was sent from the dialysis center for evaluation. He had vomited this morning which included his oral antihypertensive medication. Patient denies abdominal pain. He denies fever. He states he had a bowel movement which was soft this morning. - Related Data Home Medications Medication Instructions Recorded Confirmed Omeprazole 20 mg PO BID 03/27/20 01/17/23 Fexofenadine HCl [Ana Allergy] 180 mg PO DAILY 06/16/22 01/17/23 Insulin NPH Hum/Reg Insulin Hm 17 unit SQ DAILY 06/16/22 01/17/23 [humuLIN 70/30 Kwikpen] Methenamine Hippurate [Hiprex] 1 gm PO BID 06/16/22 01/17/23 Venlafaxine HCl ER [Effexor XR] 150 mg PO DAILY 06/16/22 01/17/23 cloNIDine 0.2 MG/24HR PATCH 1 patch TRANSDERM MO 06/16/22 01/17/23 [Catapres-TTS] modafiniL [Provigil] 200 mg PO BID@0800,1200 06/16/22 01/17/23 Aspirin 81 mg PO DAILY 09/23/22 01/17/23 Ergocalciferol [Vitamin D2 (1250 1,250 mcg PO WE 09/23/22 01/17/23 Mcg = 45422 Iu)] Losartan Potassium 50 mg PO DAILY 09/23/22 01/17/23 Metoprolol Succinate (ER) [Toprol 25 mg PO DAILY 09/23/22 01/17/23 XL] Sevelamer Carbonate 1,600 mg PO ACHS 09/23/22 01/17/23 Torsemide [Demadex] 40 mg PO DAILY 09/23/22 01/17/23 amLODIPine [Norvasc] 10 mg PO DAILY 09/23/22 01/17/23 hydrALAZINE HCL [Apresoline] 50 mg PO TID 09/23/22 01/17/23 Buprenorphine [Butrans 7.5 MCG/HR] 1 patch TOPICAL WE 01/17/23 01/17/23 Cetirizine HCl 10 mg PO DAILY 01/17/23 01/17/23 Lactulose 10 gm PO DAILY PRN 01/17/23 01/17/23 Ondansetron Odt [Zofran Odt] 4 mg PO QID PRN 01/17/23 01/17/23 Sevelamer [Renvela] 1,600 mg PO DAILY PRN 01/17/23 01/17/23 Sodium Bicarbonate Tab 650 mg PO BID 01/17/23 01/17/23 buPROPion XL [Wellbutrin XL] 150 mg PO DAILY 01/17/23 01/17/23 Previous Rx's Medication Instructions Recorded Apixaban [Eliquis] 5 mg PO BID #0 01/31/22 Allergies Allergy/AdvReac Type Severity Reaction Status Date / Time lactose AdvReac Nausea & Verified 01/17/23 13:05 Vomiting & Diarrhea Review of Systems ROS Statement: Those systems with pertinent positive or pertinent negative responses have been documented in the HPI. ROS Other: All systems not noted in ROS Statement are negative. 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 History of Any Multi-Drug Resistant Organisms: MRSA Date of last positivie culture/infection: 04/22/16 MDRO Source:: Right Hand Past Surgical History: Orthopedic Surgery Additional Past Surgical History / Comment(s): Current R chest hemodialysis catheter, PETRA, bilateral eye retinal scraping, cataracts., colonoscopies., RIGHT HAND SURGERY, cystectomy flank. Past Anesthesia/Blood Transfusion Reactions: No Reported Reaction, Motion Sickness Additional Past Anesthesia/Blood Transfusion Reaction / Comment(s): Pt has had blood transfusion without reaction. Past Psychological History: Anxiety, Bipolar, Depression Smoking Status: Never smoker - Past Family History Mother Family Medical History: Diabetes Mellitus, Renal Disease Additional Family Medical History / Comment(s): Mother is alive at age 67yrs with history of diabetes (wears insulin pump).. Brother(s) Family Medical History: Diabetes Mellitus Additional Family Medical History / Comment(s): Patient has 2 brothers and one has history of diabetes and one has no major medical problems. General Exam Limitations: no limitations General appearance: alert, in no apparent distress Head exam: Present: atraumatic, normocephalic Eye exam: Present: normal appearance, PERRL ENT exam: Present: normal exam Neck exam: Present: normal inspection. Absent: tenderness, meningismus Respiratory exam: Present: normal lung sounds bilaterally. Absent: respiratory distress, wheezes Cardiovascular Exam: Present: regular rate, normal rhythm GI/Abdominal exam: Present: soft. Absent: distended, tenderness Neurological exam: Present: alert, oriented X3 Skin exam: Present: warm, dry Course Vital Signs 02/25/23 02/25/23 02/25/23 07:39 08:08 09:22 Temperature 98.4 F 98.4 F Pulse Rate 83 81 85 Respiratory 18 20 16 Rate Blood Pressure 200/107 191/106 177/99 O2 Sat by Pulse 97 96 98 Oximetry Medical Decision Making - Medical Decision Making Was pt. sent in by a medical professional or institution (JUANY Antonio, [employer]UM[employer]ING [employer]OR, urgent care, hospital, or fdc...) When possible be specific @ -No Did you speak to anyone other than the patient for history (EMS, parent, family, police, friend...)? What history was obtained from this source @ -No Did you review nursing and triage notes (agree or disagree)? Why? @ -I reviewed and agree with nursing and triage notes Were old charts reviewed (outside hosp., previous admission, EMS record, old EKG, old radiological studies, urgent care reports/EKG's, fdc records)? Report findings @ -No old charts were reviewed Differential Diagnosis (chest pain, altered mental status, abdominal pain women, abdominal pain men, vaginal bleeding, weakness, fever, dyspnea, syncope, headache, dizziness, GI bleed, back pain, seizure, CVA, palpatations, mental health, musculoskeletal)? @ -Differential Weakness: Hypoglycemia, shock, sepsis, hyponatremia, anemia, infection, NC, ETOH, adverse medicine reaction, overdose, stroke, this is not meant to be an all-inclusive l ist.] EKG interpreted by me (3pts min.). @ -[Sinus rhythm, LVH, rate of 82, WA interval 141, QRS duration 86, QTC 433, and no ST segment elevation. X-rays interpreted by me (1pt min.). @ -None done CT interpreted by me (1pt min.). @ -None done U/S interpreted by me (1pt. min.). @ -None done What testing was considered but not performed or refused? (CT, X-rays, U/S, labs)? Why? @ -None What meds were considered but not given or refused? Why? @ -None Did you discuss the management of the patient with other professionals (professionals i.e. , PA, PLUMBING CONTRACTOR, lab, RT, psych nurse, social media community manager, bander hand, teacher, investment officer, case management director)? Give summary @ -[Dr. Johnson Was smoking cessation discussed for >3mins.? @ -No Was critical care preformed (if so, how long)? @ -No Were there social determinants of health that impacted care today? How? (Homelessness, low income, unemployed, alcoholism, drug addiction, transportation, low edu. Level, literacy, decrease access to med. care, fdc, rehab)? @ -No Was there de-escalation of care discussed even if they declined (Discuss DNR or withdrawal of care, Hospice)? DNR status @ -No What co-morbidities impacted this encounter? (DM, HTN, Smoking, COPD, CAD, Cancer, CVA, ARF, Chemo, Hep., AIDS, mental health diagnosis, sleep apnea, morbid obesity)? @ -Type 1 diabetes, end-stage renal disease on hemodialysis Was patient admitted / discharged? Hospital course, mention meds given and route, prescriptions, significant lab abnormalities, going to OR and other pertinent info. @ -[52-year-old male with end-stage renal disease presenting from dialysis after not being able to undergo dialysis secondary to vomiting. Patient vomited up his medications which included his antihypertensive medication. He does still make urine and has an indwelling Wilkinson catheter. He is euvolemic on exam. He is hypertensive. He has no abdominal pain or tenderness. He has a normal white blood cell count, stable chronic anemia. Elevated BUN and creatinine consistent with end-stage renal disease. He is not acidotic and has normal potassium. He will require hemodialysis nonurgently. He will be admitted for symptom control, to internal medicine. Case discussed with Dr. Johnson. Undiagnosed new problem with uncertain prognosis? @ -No Drug Therapy requiring intensive monitoring for toxicity (Heparin, Nitro, Insulin, Cardizem)? @ -No Were any procedures done? @ -No Diagnosis/symptom? @ -[Nausea vomiting, hypertension, end-stage renal disease Acute, or Chronic, or Acute on Chronic? @ -[Acute Uncomplicated (without systemic symptoms) or Complicated (systemic symptoms)? @ -Complicated Side effects of treatment? @ -No Exacerbation, Progression, or Severe Exacerbation? @ -No Poses a threat to life or bodily function? How? (Chest pain, USA, NC, pneumonia, PE, COPD, DKA, ARF, appy, cholecystitis, CVA, Diverticulitis, Homicidal, Suicidal, threat to staff... and all critical care pts) @ -[Moderate risk - Lab Data Result diagrams: 02/25/23 07:50 02/25/23 07:50 Lab Results 02/25/23 02/25/23 02/25/23 Range/Units 07:50 07:50 07:50 WBC 5.6 (3.8-10.6) k/uL RBC 3.88 L (4.30-5.90) m/uL Hgb 11.3 L (13.0-17.5) gm/dL Hct 34.0 L (39.0-53.0) % MCV 87.5 (80.0-100.0) fL MCH 29.1 (25.0-35.0) pg MCHC 33.2 (31.0-37.0) g/dL RDW 14.9 (11.5-15.5) % Plt Count 265 (150-450) k/uL MPV 7.0 Neutrophils % 70 % Lymphocytes % 21 % Monocytes % 5 % Eosinophils % 3 % Basophils % 1 % Neutrophils # 3.9 (1.3-7.7) k/uL Lymphocytes # 1.2 (1.0-4.8) k/uL Monocytes # 0.3 (0-1.0) k/uL Eosinophils # 0.2 (0-0.7) k/uL Basophils # 0.0 (0-0.2) k/uL PT 12.1 (10.0-12.5) sec INR 1.1 (<1.2) APTT 63.9 H (22.0-30.0) sec Sodium (137-145) mmol/L Potassium (3.5-5.1) mmol/L Chloride (98-107) mmol/L Carbon Dioxide (22-30) mmol/L Anion Gap mmol/L BUN (9-20) mg/dL Creatinine (0.66-1.25) mg/dL Est GFR (CKD-EPI)AfAm (>60 ml/min/1.73 sqM) Est GFR (CKD-EPI)NonAf (>60 ml/min/1.73 sqM) Glucose (74-99) mg/dL Calcium (8.4-10.2) mg/dL Magnesium (1.6-2.3) mg/dL Total Bilirubin (0.2-1.3) mg/dL AST (17-59) U/L ALT (4-49) U/L Alkaline Phosphatase (38-126) U/L Total Protein (6.3-8.2) g/dL Albumin (3.5-5.0) g/dL Urine Color Light Yellow Urine Appearance Turbid (Clear) Urine pH 8.0 (5.0-8.0) Ur Specific [place] 1.017 (1.001-1.035) Urine Protein 3+ H (Negative) Urine Glucose (UA) Trace H (Negative) Urine Ketones Negative (Negative) Urine Blood Small H (Negative) Urine Nitrite Negative (Negative) Urine Bilirubin Negative (Negative) Urine Urobilinogen <2.0 (<2.0) mg/dL Ur Leukocyte Esterase Large H (Negative) Urine RBC 10 H (0-5) /hpf Urine WBC 117 H (0-5) /hpf Urine WBC Clumps Occasional H (None) /hpf Ur Squamous Epith Cells <1 (0-4) /hpf Triple Phos Crystals Occasional H (None) /hpf Urine Bacteria Rare H (None) /hpf Urine Mucus Rare H (None) /hpf Influenza Type A (PCR) (Not Detectd) Influenza Type B (PCR) (Not Detectd) RSV (PCR) (Not Detectd) SARS-CoV-2 (PCR) (Not Detectd) 02/25/23 02/25/23 Range/Units 07:50 07:50 WBC (3.8-10.6) k/uL RBC (4.30-5.90) m/uL Hgb (13.0-17.5) gm/dL Hct (39.0-53.0) % MCV (80.0-100.0) fL MCH (25.0-35.0) pg MCHC (31.0-37.0) g/dL RDW (11.5-15.5) % Plt Count (150-450) k/uL MPV Neutrophils % % Lymphocytes % % Monocytes % % Eosinophils % % Basophils % % Neutrophils # (1.3-7.7) k/uL Lymphocytes # (1.0-4.8) k/uL Monocytes # (0-1.0) k/uL Eosinophils # (0-0.7) k/uL Basophils # (0-0.2) k/uL PT (10.0-12.5) sec INR (<1.2) APTT (22.0-30.0) sec Sodium 142 (137-145) mmol/L Potassium 4.2 (3.5-5.1) mmol/L Chloride 99 (98-107) mmol/L Carbon Dioxide 26 (22-30) mmol/L Anion Gap 17 mmol/L BUN 64 H (9-20) mg/dL Creatinine 9.20 H* (0.66-1.25) mg/dL Est GFR (CKD-EPI)AfAm 7 (>60 ml/min/1.73 sqM) Est GFR (CKD-EPI)NonAf 6 (>60 ml/min/1.73 sqM) Glucose 96 (74-99) mg/dL Calcium 8.4 (8.4-10.2) mg/dL Magnesium 2.0 (1.6-2.3) mg/dL Total Bilirubin 0.4 (0.2-1.3) mg/dL AST 24 (17-59) U/L ALT 10 (4-49) U/L Alkaline Phosphatase 71 (38-126) U/L Total Protein 7.2 (6.3-8.2) g/dL Albumin 4.3 (3.5-5.0) g/dL Urine Color Urine Appearance (Clear) Urine pH (5.0-8.0) Ur Specific [place] (1.001-1.035) Urine Protein (Negative) Urine Glucose (UA) (Negative) Urine Ketones (Negative) Urine Blood (Negative) Urine Nitrite (Negative) Urine Bilirubin (Negative) Urine Urobilinogen (<2.0) mg/dL Ur Leukocyte Esterase (Negative) Urine RBC (0-5) /hpf Urine WBC (0-5) /hpf Urine WBC Clumps (None) /hpf Ur Squamous Epith Cells (0-4) /hpf Triple Phos Crystals (None) /hpf Urine Bacteria (None) /hpf Urine Mucus (None) /hpf Influenza Type A (PCR) Not Detected (Not Detectd) Influenza Type B (PCR) Not Detected (Not Detectd) RSV (PCR) Not Detected (Not Detectd) SARS-CoV-2 (PCR) Not Detected (Not Detectd) Disposition Clinical Impression: Hypertension, Nausea & vomiting, ESRD (end stage renal disease) Disposition: ADMITTED IP TO THIS HOSP Condition: Stable Is patient prescribed a controlled substance at d/c from ED?: No Referrals: Justine Guillen MD [Primary Care Provider] - 1-2 days Time of Disposition: 09:56
[2023-02-25 08:12] LABS: Basophils % (A) 1 %; Eosinophils # (A) 0.2 k/uL (0-0.7); Eosinophils % (A) 3 %; HGB 11.3 gm/dL (13.0-17.5); Lymphocytes # (A) 1.2 k/uL (1.0-4.8); Lymphocytes % (A) 21 %; MCH 29.1 pg (25.0-35.0); MCHC 33.2 g/dL (31.0-37.0); MCV 87.5 fL (80.0-100.0); Monocytes # (A) 0.3 k/uL (0-1.0); Monocytes % (A) 5 %; Neutrophils # (A) 3.9 k/uL (1.3-7.7); Neutrophils % (A) 70 %; Platelet Count 265 k/uL (150-450); RBC 3.88 m/uL (4.30-5.90); RDW 14.9 % (11.5-15.5); WBC 5.6 k/uL (3.8-10.6)
[2023-02-25 08:22] LABS: ALT 10 U/L (4-49); AST 24 U/L (17-59); African American GFR (CKD) 7 (>60 ml/min/1.73 sqM); Albumin 4.3 g/dL (3.5-5.0); Alkaline Phosphatase 71 U/L (38-126); Anion Gap 17 mmol/L; Blood Urea Nitrogen 64 mg/dL (9-20); Calcium 8.4 mg/dL (8.4-10.2); Carbon Dioxide 26 mmol/L (22-30); Chloride 99 mmol/L (98-107); Glucose 96 mg/dL (74-99); Non-African American GFR(CKD) 6 (>60 ml/min/1.73 sqM); Potassium 4.2 mmol/L (3.5-5.1); Sodium 142 mmol/L (137-145); Total Bilirubin 0.4 mg/dL (0.2-1.3); Total Protein 7.2 g/dL (6.3-8.2)
[2023-02-25 08:27] LABS: INR 1.1 (<1.2); Prothrombin Time 12.1 sec (10.0-12.5)
[2023-02-25 09:02] LABS: Appearance,Urine Turbid (Clear); Bacteria,Urine Rare /hpf; Bilirubin,Urine Negative (Negative); Blood,Urine Small (Negative); Color,Urine Light Yellow; Glucose,Urine (UA) Trace (Negative); Ketones,Urine Negative (Negative); Leukocyte Esterase,Urine Large (Negative); Mucus,Urine Rare /hpf; Nitrite,Urine Negative (Negative); Partial Thromboplastin Time 63.9 sec (22.0-30.0); Protein,Urine 3+ (Negative); RBC,Urine 10 /hpf (0-5); Specific Gravity,Urine 1.017 (1.001-1.035); Squamous Epithelial Cell,Urine <1 /hpf (0-4); Triple Phosphate Crystal,Urine Occasional /hpf; Urobilinogen,Urine <2.0 mg/dL (<2.0); WBC,Urine 117 /hpf (0-5)
[2023-02-25] MEDS ORDERED: hydrALAZINE HCL 20 MG/ML 1 ML VIAL IVP STA (09:05)
[2023-02-25] MEDS ORDERED: cefTRIAXone IN SWFI 1,000 MG/10 ML SYRINGE IVP STA (09:06)
[2023-02-25] MEDS ORDERED: ONDANSETRON 4 MG/2 ML VIAL IVP PRN (09:53)
[2023-02-25] MEDS ORDERED: NALOXONE 0.4 MG/ML 1 ML VIAL IV PRN (09:53)
[2023-02-25] MEDS ORDERED: PANTOPRAZOLE 40 MG/10 ML VIAL IVP SCH (10:30)
--- NOTE | 2023-02-25 10:40 | P.HPIM ---
History of Present Illness Patient is a pleasant 60-year-old male on hemodialysis Friday, missed two hemodialysis sessions as he was not feeling well. Patient started having nausea vomiting at the dialysis center with highly elevated blood pr essures with systolics going up to 220. Patient the blood pressure is 177 now, patient is feeling better we'll advance the lip diet to full liquid diet patient will undergo hemodialysis today. Patient uses rarely uses wheelchair did have one fall but patient doesn't want to go to rehab patient has some generalized weakness but doesn't have any focal weakness or increased weakness. Patient denied any abdominal pain or flulike illness. Patient has elevated BN of 64 9.2. Patient does have a Wilkinson catheter chronically in the urine is abnormal because of full catheter patient doesn't have any fever chills doesn't have any leukocytosis will catheter will be replaced REVIEW OF SYSTEMS: CONSTITUTIONAL: No fever, no malaise, no fatigue. HEENT: No recent visual problems or hearing problems. Denied any sore throat. CARDIOVASCULAR: No chest pain, orthopnea, PND, no palpitations, no syncope. PULMONARY: No shortness of breath, no cough, no hemoptysis. GASTROINTESTINAL: No diarrhea, no abdominal pain. NEUROLOGICAL: No headaches, no weakness, no numbness. HEMATOLOGICAL: Denies any bleeding or petechiae. GENITOURINARY: Denies any burning micturition, frequency, or urgency. MUSCULOSKELETAL/RHEUMATOLOGICAL: Denies any joint pain, swelling, or any muscle pain. ENDOCRINE: Denies any polyuria or polydipsia. The rest of the 14-point review of systems is negative. PHYSICAL EXAMINATION: GENERAL: The patient is alert and oriented x3, not in any acute distress. Well developed, well nourished. HEENT: Pupils are round and equally reacting to light. EOMI. No scleral icterus. No conjunctival pallor. Normocephalic, atraumatic. No pharyngeal erythema. No thyromegaly. CARDIOVASCULAR: S1 and S2 present. No murmurs, rubs, or gallops. PULMONARY: Chest is clear to auscultation, no wheezing or crackles. ABDOMEN: Soft, nontender, nondistended, normoactive bowel sounds. No palpable organomegaly. MUSCULOSKELETAL: No joint swelling or deformity. EXTREMITIES: No cyanosis, clubbing, or pedal edema. NEUROLOGICAL: Gross neurological examination did not reveal any new focal defic its. Patient does have some weakness in both legs which is chronic and it is around 4+/5 SKIN: No rashes. Assessment and plan -Nausea vomiting: Most probably secondary to missing hemodialysis may be viral gastroenteritis. Patient already takes Prilosec at home twice a day which she can continue. After dialysis if he feels better and if he can tolerate full liquid diet patient will be discharged today. -Abnormal urine secondary to fully catheter no evidence of urinary tract infection patient will not require any antiemetics which is a Wilkinson catheter -Essential hypertension possibly hypertensive emergency patient blood pressures better controlled now. Patient will be resumed on home medications I'm expecting blood pressure to improve after hemodialysis and will be discharged after hemodialysis -CVA/TIA, unsure patient had atrial fibrillation history patient is on anti- correlation and has been on anticoagulation since his stroke as per the patient. Patient is presently sinus rhythm -Gases revealed reflux disease -Arm benign prostatic hypertrophy -Sleep apnea -Type 2 diabetes mellitus patient will resume her home medications patient blood sugars are aberrantly well-controlled -sleep apnea -Generalized weakness declined any subacute rehab. 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 History of Any Multi-Drug Resistant Organisms: MRSA Date of last positivie culture/infection: 04/22/16 MDRO Source:: Right Hand Past Surgical History: Orthopedic Surgery Additional Past Surgical History / Comment(s): Current R chest hemodialysis catheter, PETRA, bilateral eye retinal scraping, cataracts., colonoscopies., RIGHT HAND SURGERY, cystectomy flank. Past Anesthesia/Blood Transfusion Reactions: No Reported Reaction, Motion Sickness Additional Past Anesthesia/Blood Transfusion Reaction / Comment(s): Pt has had blood transfusion without reaction. Past Psychological History: Anxiety, Bipolar, Depression Smoking Status: Never smoker - Past Family History Mother Family Medical History: Diabetes Mellitus, Renal Disease Additional Family Medical History / Comment(s): Mother is alive at age 67yrs with history of diabetes (wears insulin pump).. Brother(s) Family Medical History: Diabetes Mellitus Additional Family Medical History / Comment(s): Patient has 2 brothers and one has history of diabetes and one has no major medical problems. Medications and Allergies Home Medications Medication Instructions Recorded Confirmed Type Omeprazole 20 mg PO BID 03/27/20 01/17/23 History Apixaban [Eliquis] 5 mg PO BID #0 01/31/22 01/17/23 Rx Fexofenadine HCl [Ana Allergy] 180 mg PO DAILY 06/16/22 01/17/23 History Insulin NPH Hum/Reg Insulin Hm 17 unit SQ DAILY 06/16/22 01/17/23 History [humuLIN 70/30 Kwikpen] Methenamine Hippurate [Hiprex] 1 gm PO BID 06/16/22 01/17/23 History Venlafaxine HCl ER [Effexor XR] 150 mg PO DAILY 06/16/22 01/17/23 History cloNIDine 0.2 MG/24HR PATCH 1 patch TRANSDERM MO 06/16/22 01/17/23 History [Catapres-TTS] modafiniL [Provigil] 200 mg PO BID@0800,1200 06/16/22 01/17/23 History Aspirin 81 mg PO DAILY 09/23/22 01/17/23 History Ergocalciferol [Vitamin D2 (1250 1,250 mcg PO WE 09/23/22 01/17/23 History Mcg = 38746 Iu)] Losartan Potassium 50 mg PO DAILY 09/23/22 01/17/23 History Metoprolol Succinate (ER) [Toprol 25 mg PO DAILY 09/23/22 01/17/23 History XL] Sevelamer Carbonate 1,600 mg PO ACHS 09/23/22 01/17/23 History Torsemide [Demadex] 40 mg PO DAILY 09/23/22 01/17/23 History amLODIPine [Norvasc] 10 mg PO DAILY 09/23/22 01/17/23 History hydrALAZINE HCL [Apresoline] 50 mg PO TID 09/23/22 01/17/23 History Buprenorphine [Butrans 7.5 MCG/HR] 1 patch TOPICAL WE 01/17/23 01/17/23 History Cetirizine HCl 10 mg PO DAILY 01/17/23 01/17/23 History Lactulose 10 gm PO DAILY PRN 01/17/23 01/17/23 History Ondansetron Odt [Zofran Odt] 4 mg PO QID PRN 01/17/23 01/17/23 History Sevelamer [Renvela] 1,600 mg PO DAILY PRN 01/17/23 01/17/23 History Sodium Bicarbonate Tab 650 mg PO BID 01/17/23 01/17/23 History buPROPion XL [Wellbutrin XL] 150 mg PO DAILY 01/17/23 01/17/23 History Allergies Allergy/AdvReac Type Severity Reaction Status Date / Time lactose AdvReac Nausea & Verified 02/25/23 10:39 Vomiting & Diarrhea Physical Exam Vitals: Vital Signs Temp Pulse Resp BP Pulse Ox 02/25/23 09:58 85 16 157/89 94 L 02/25/23 09:22 85 16 177/99 98 02/25/23 08:08 98.4 F 81 20 191/106 96 02/25/23 07:39 98.4 F 83 18 200/107 97 Intake and Output 02/24/23 02/25/23 02/25/23 22:59 06:59 14:59 Other: Weight 81.647 kg Results CBC & Chem 7: 02/25/23 07:50 02/25/23 07:50 Labs: Abnormal Lab Results - Last 24 Hours (Table) 02/25/23 02/25/23 02/25/23 Range/Units 07:50 07:50 07:50 RBC 3.88 L (4.30-5.90) m/uL Hgb 11.3 L (13.0-17.5) gm/dL Hct 34.0 L (39.0-53.0) % APTT 63.9 H (22.0-30.0) sec BUN (9-20) mg/dL Creatinine (0.66-1.25) mg/dL Urine Protein 3+ H (Negative) Urine Glucose (UA) Trace H (Negative) Urine Blood Small H (Negative) Ur Leukocyte Esterase Large H (Negative) Urine RBC 10 H (0-5) /hpf Urine WBC 117 H (0-5) /hpf Urine WBC Clumps Occasional H (None) /hpf Triple Phos Crystals Occasional H (None) /hpf Urine Bacteria Rare H (None) /hpf Urine Mucus Rare H (None) /hpf 02/25/23 Range/Units 07:50 RBC (4.30-5.90) m/uL Hgb (13.0-17.5) gm/dL Hct (39.0-53.0) % APTT (22.0-30.0) sec BUN 64 H (9-20) mg/dL Creatinine 9.20 H* (0.66-1.25) mg/dL Urine Protein (Negative) Urine Glucose (UA) (Negative) Urine Blood (Negative) Ur Leukocyte Esterase (Negative) Urine RBC (0-5) /hpf Urine WBC (0-5) /hpf Urine WBC Clumps (None) /hpf Triple Phos Crystals (None) /hpf Urine Bacteria (None) /hpf Urine Mucus (None) /hpf
--- NOTE | 2023-02-25 11:27 | P.DS ---
Providers Date of admission: 02/25/23 09:53 Attending physician: Tiago Johnson Consults: 02/25/23 09:53 Consult Physician Routine Consulting Provider: Julianna Barton Consult Reason/Comments: ESRD Do you want consulting provider notified?: Yes Primary care physician: Justine [facility] Hospital Course: Patient is a pleasant 60-year-old male on hemodialysis Friday, missed two hemodialysis sessions as he was not feeling well. Patient started having nausea vomiting at the dialysis center with highly elevated blood pressures with systolics going up to 220. Patient the blood pressure is 177 now, patient is feeling better we'll advance the lip diet to full liquid diet patient will undergo hemodialysis today. Patient uses rarely uses wheelchair did have one fall but patient doesn't want to go to rehab patient has some generalized weakness but doesn't have any focal weakness or increased weakness. Patient denied any abdominal pain or flulike illness. Patient has elevated BN of 64 9.2. Patient does have a Rosado catheter chronically in the urine is abnormal because of full catheter patient doesn't have any fever chills doesn't have any leukocytosis will catheter will be replaced REVIEW OF SYSTEMS: CONSTITUTIONAL: No fever, no malaise, no fatigue. HEENT: No recent visual problems or hearing problems. Denied any sore throat. CARDIOVASCULAR: No chest pain, orthopnea, PND, no palpitations, no syncope. PULMONARY: No shortness of breath, no cough, no hemoptysis. GASTROINTESTINAL: No diarrhea, no abdominal pain. NEUROLOGICAL: No headaches, no weakness, no numbness. HEMATOLOGICAL: Denies any bleeding or petechiae. GENITOURINARY: Denies any burning micturition, frequency, or urgency. MUSCULOSKELETAL/RHEUMATOLOGICAL: Denies any joint pain, swelling, or any muscle pain. ENDOCRINE: Denies any polyuria or polydipsia. The rest of the 14-point review of systems is negative. PHYSICAL EXAMINATION: GENERAL: The patient is alert and oriented x3, not in any acute distress. Well developed, well nourished. HEENT: Pupils are round and equally reacting to light. EOMI. No scleral icterus. No conjunctival pallor. Normocephalic, atraumatic. No pharyngeal erythema. No thyromegaly. CARDIOVASCULAR: S1 and S2 present. No murmurs, rubs, or gallops. PULMONARY: Chest is clear to auscultation, no wheezing or crackles. ABDOMEN: Soft, nontender, nondistended, normoactive bowel sounds. No palpable organomegaly. MUSCULOSKELETAL: No joint swelling or deformity. EXTREMITIES: No cyanosis, clubbing, or pedal edema. NEUROLOGICAL: Gross neurological examination did not reveal any new focal deficits. Patient does have some weakness in both legs which is chronic and it is around 4+/5 SKIN: No rashes. Assessment and plan -Nausea vomiting: Most probably secondary to missing hemodialysis may be viral gastroenteritis. Patient already takes Prilosec at home twice a day which she can continue. After dialysis if he feels better and if he can tolerate full liquid diet patient will be discharged today. -Abnormal urine secondary to fully catheter no evidence of urinary tract infection patient will not require any antiemetics which is a Rosado catheter -Essential hypertension possibly hypertensive emergency patient blood pressures better controlled now. Patient will be resumed on home medications I'm expecting blood pressure to improve after hemodialysis and will be discharged after hemodialysis -CVA/TIA, unsure patient had atrial fibrillation history patient is on anti- correlation and has been on anticoagulation since his stroke as per the patient. Patient is presently sinus rhythm -Gases revealed reflux disease -Arm benign prostatic hypertrophy -Sleep apnea -Type 2 diabetes mellitus patient will resume her home medications patient blood sugars are aberrantly well-controlled -sleep apnea -Generalized weakness declined any subacute rehab. -End-stage renal disease, diabetic nephropathy and-diabetic peripheral neuropathy Patient Condition at Discharge: Stable Plan - Discharge Summary New Discharge Prescriptions: Continue Omeprazole 20 mg PO BID Methenamine Hippurate [Hiprex] 1 gm PO BID amLODIPine [Norvasc] 10 mg PO DAILY Aspirin 81 mg PO DAILY Lactulose 10 gm PO DAILY PRN PRN Reason: Constipation Buprenorphine [Butrans 7.5 MCG/HR] 1 patch TOPICAL WE Sevelamer [Renvela] 1,600 mg PO DAILY PRN PRN Reason: WITH A SNACK Sodium Bicarbonate Tab 650 mg PO BID Apixaban [Eliquis] 5 mg PO BID #0 Venlafaxine HCl ER [Effexor XR] 150 mg PO DAILY modafiniL [Provigil] 200 mg PO BID@0800,1200 cloNIDine 0.2 MG/24HR PATCH [Catapres-TTS] 1 patch TRANSDERM MO Fexofenadine HCl [Ana Allergy] 180 mg PO DAILY Insulin NPH Hum/Reg Insulin Hm [humuLIN 70/30 Kwikpen] 17 unit SQ DAILY Ergocalciferol [Vitamin D2 (1250 Mcg = 20856 Iu)] 1,250 mcg PO WE Sevelamer Carbonate 1,600 mg PO ACHS hydrALAZINE HCL [Apresoline] 50 mg PO TID Metoprolol Succinate (ER) [Toprol XL] 25 mg PO DAILY Torsemide [Demadex] 40 mg PO DAILY Losartan Potassium 50 mg PO DAILY buPROPion XL [Wellbutrin XL] 150 mg PO DAILY Cetirizine HCl 10 mg PO DAILY Ondansetron Odt [Zofran ODT] 4 mg PO QID PRN PRN Reason: Nausea Discharge Medication List Omeprazole 20 mg PO BID 03/27/20 [History] Apixaban [Eliquis] 5 mg PO BID #0 01/31/22 [Rx] Fexofenadine HCl [Ana Allergy] 180 mg PO DAILY 06/16/22 [History] Insulin NPH Hum/Reg Insulin Hm [humuLIN 70/30 Kwikpen] 17 unit SQ DAILY 06/16/22 [History] Methenamine Hippurate [Hiprex] 1 gm PO BID 06/16/22 [History] Venlafaxine HCl ER [Effexor XR] 150 mg PO DAILY 06/16/22 [History] cloNIDine 0.2 MG/24HR PATCH [Catapres-TTS] 1 patch TRANSDERM MO 06/16/22 [History] modafiniL [Provigil] 200 mg PO BID@0800,1200 06/16/22 [History] Aspirin 81 mg PO DAILY 09/23/22 [History] Ergocalciferol [Vitamin D2 (1250 Mcg = 80673 Iu)] 1,250 mcg PO WE 09/23/22 [History] Losartan Potassium 50 mg PO DAILY 09/23/22 [History] Metoprolol Succinate (ER) [Toprol XL] 25 mg PO DAILY 09/23/22 [History] Sevelamer Carbonate 1,600 mg PO ACHS 09/23/22 [History] Torsemide [Demadex] 40 mg PO DAILY 09/23/22 [History] amLODIPine [Norvasc] 10 mg PO DAILY 09/23/22 [History] hydrALAZINE HCL [Apresoline] 50 mg PO TID 09/23/22 [History] Buprenorphine [Butrans 7.5 MCG/HR] 1 patch TOPICAL WE 01/17/23 [History] Cetirizine HCl 10 mg PO DAILY 01/17/23 [History] Lactulose 10 gm PO DAILY PRN 01/17/23 [History] Ondansetron Odt [Zofran ODT] 4 mg PO QID PRN 01/17/23 [History] Sevelamer [Renvela] 1,600 mg PO DAILY PRN 01/17/23 [History] Sodium Bicarbonate Tab 650 mg PO BID 01/17/23 [History] buPROPion XL [Wellbutrin XL] 150 mg PO DAILY 01/17/23 [History] Follow up Appointment(s)/Referral(s): Justine Guillen MD [Primary Care Provider] - 3 Days Discharge Disposition: HOME SELF-CARE
[2023-02-25] MEDS ORDERED: hydrALAZINE HCL 50 MG TAB PO SCH (16:00)
[2023-02-25 16:46] VITALS: TEMP 98
[2023-02-25 17:51] VITALS: BP 165/87; PULSE 92; RESP 18
[2023-02-25] MEDS ORDERED: APIXABAN 5 MG TAB PO SCH (21:00)
[2023-02-26] MEDS ORDERED: NON FORMULARY DRUG (Buprenorphine [Butrans 7.5 Mcg/Hr] 7.5 MCG/HOUR Patch) TOPICAL SCH (09:00)
[2023-02-26] MEDS ORDERED: amLODIPine 10 MG TAB PO SCH (09:00)
[2023-02-26] MEDS ORDERED: LOSARTAN 50 MG TAB PO SCH (09:00)
[2023-02-26] MEDS ORDERED: INSULN ASP PRT/INSULIN ASPART 100 UNIT/ML 10 ML VIAL SQ SCH (09:00)
[2023-02-26] MEDS ORDERED: ASPIRIN 81 MG PO SCH (09:00)
[2023-02-26] MEDS ORDERED: LORATADINE 10 MG TAB PO SCH (09:00)
[2023-02-26] MEDS ORDERED: VENLAFAXINE HCL ER 150 MG CAP PO SCH (09:00)
[2023-02-26] MEDS ORDERED: METOPROLOL SUCCINATE (ER) 25 MG TAB.ER.24H PO SCH (09:00)
[2023-02-26] MEDS ORDERED: buPROPion XL 150 MG TAB.ER.24H PO SCH (09:00)
== END 2023-02-25 19:51 | disposition home or self-care (01) | DRG 291 ==
LOC: EC 07:33 → 5NMEDONC 09:53
PROVIDERS: ADMIT Internal Medicine; ATTEND Internal Medicine
PROC: 5A1D70Z Performance of Urinary Filtration, Intermittent, Less than 6 Hours Per Day (ICD-10-PCS; principal; 2023-02-25)
DX: I13.2 Hypertensive heart and chronic kidney disease with heart failure and with stage 5 chronic kidney disease, or end stage renal disease (principal); N18.6 End stage renal disease; I16.1 Hypertensive emergency; T83.9XXA Unspecified complication of genitourinary prosthetic device, implant and graft, initial encounter; E10.22 Type 1 diabetes mellitus with diabetic chronic kidney disease; N40.0 Benign prostatic hyperplasia without lower urinary tract symptoms; D63.1 Anemia in chronic kidney disease; A08.4 Viral intestinal infection, unspecified; E10.43 Type 1 diabetes mellitus with diabetic autonomic (poly)neuropathy; K31.84 Gastroparesis; F31.9 Bipolar disorder, unspecified; F41.9 Anxiety disorder, unspecified; R82.90 Unspecified abnormal findings in urine; G47.33 Obstructive sleep apnea (adult) (pediatric); G83.24 Monoplegia of upper limb affecting left nondominant side; I50.9 Heart failure, unspecified; K21.9 Gastro-esophageal reflux disease without esophagitis; Z99.2 Dependence on renal dialysis; Z87.440 Personal history of urinary (tract) infections; Z86.73 Personal history of transient ischemic attack (TIA), and cerebral infarction without residual deficits; Z79.899 Other long term (current) drug therapy; Z79.82 Long term (current) use of aspirin; Z79.4 Long term (current) use of insulin; Z11.52 Encounter for screening for COVID-19; Z79.01 Long term (current) use of anticoagulants; Z86.14 Personal history of Methicillin resistant Staphylococcus aureus infection; Z91.81 History of falling
CPT/HCPCS: 36415; 80053; 81001; 83735; 85025; 85610; 85730; 87086; 87636; 90935; 93005; 96374; 96375; 99285

== ENCOUNTER 2023-02-27 10:59 | Inpatient (IN) | payer MEDICARE, OTHER ==
[2023-02-27] MEDS ORDERED: ONDANSETRON 4 MG/2 ML VIAL IVP STA (14:38)
[2023-02-27] MEDS ORDERED: MECLIZINE 12.5 MG TAB PO STA (14:40)
[2023-02-27 15:11] LABS: Basophils % (A) 1 %; Eosinophils # (A) 0.1 k/uL (0-0.7); Eosinophils % (A) 1 %; HCT 39.4 % (39.0-53.0); HGB 12.6 gm/dL (13.0-17.5); Lymphocytes # (A) 1.2 k/uL (1.0-4.8); Lymphocytes % (A) 18 %; MCH 28.2 pg (25.0-35.0); MCV 88.1 fL (80.0-100.0); Mean Platelet Volume 7.3; Monocytes # (A) 0.3 k/uL (0-1.0); Monocytes % (A) 5 %; Neutrophils % (A) 74 %; Platelet Count 283 k/uL (150-450); RBC 4.47 m/uL (4.30-5.90); RDW 14.4 % (11.5-15.5); WBC 6.8 k/uL (3.8-10.6)
[2023-02-27 15:24] LABS: Appearance,Urine Turbid (Clear); Bacteria,Urine Rare /hpf; Bilirubin,Urine Negative (Negative); Blood,Urine Large (Negative); Color,Urine Yellow; Glucose,Urine (UA) Trace (Negative); Ketones,Urine Negative (Negative); Leukocyte Esterase,Urine Moderate (Negative); Nitrite,Urine Negative (Negative); Protein,Urine 3+ (Negative); RBC,Urine >182 /hpf (0-5); Specific Gravity,Urine 1.023 (1.001-1.035); Squamous Epithelial Cell,Urine 1 /hpf (0-4); Urobilinogen,Urine <2.0 mg/dL (<2.0); WBC,Urine 66 /hpf (0-5)
[2023-02-27 15:35] LABS: ALT 11 U/L (4-49); AST 16 U/L (17-59); African American GFR (CKD) 6 (>60 ml/min/1.73 sqM); Albumin 4.8 g/dL (3.5-5.0); Alkaline Phosphatase 71 U/L (38-126); Amylase 64 U/L (30-110); Anion Gap 20 mmol/L; Blood Urea Nitrogen 60 mg/dL (9-20); Calcium 9.6 mg/dL (8.4-10.2); Carbon Dioxide 27 mmol/L (22-30); Chloride 95 mmol/L (98-107); Glucose 105 mg/dL (74-99); Lipase 82 U/L (23-300); Non-African American GFR(CKD) 6 (>60 ml/min/1.73 sqM); Potassium 4.5 mmol/L (3.5-5.1); Sodium 142 mmol/L (137-145); Total Bilirubin 0.6 mg/dL (0.2-1.3); Total Protein 7.7 g/dL (6.3-8.2)
--- NOTE | 2023-02-27 15:35 | ED ---
Nausea/Vomiting/Diarrhea HPI - General Chief complaint: Nausea/Vomiting/Diarrhea Stated complaint: DIARRHEA,NAUSEA,VOMITING Time Seen by Provider: 02/27/23 14:34 Source: patient, RN notes reviewed Mode of arrival: wheelchair Limitations: no limitations - History of Present Illness Initial comments: Patient is a 52-year-old male presenting to the ER with a chief complaint of nausea and vomiting. Patient was discharged from this hospital on 02/25/23 with similar symptoms. Patient is on dialysis and goes to dialysis . patient reports his last treatment was here on 02/25/23. Patient states he has been feeling like this since he was discharged. Patient denies any recent infection, fevers, night sweats/chills. Patient states he was started on a new diabetes medication recently and he stated that his symptoms started shortly after starting the medication. - Related Data Home Medications Medication Instructions Recorded Confirmed Omeprazole 20 mg PO BID 03/27/20 02/27/23 Fexofenadine HCl [Ana Allergy] 180 mg PO DAILY 06/16/22 02/27/23 Methenamine Hippurate [Hiprex] 1 gm PO BID 06/16/22 02/27/23 Venlafaxine HCl ER [Effexor XR] 150 mg PO DAILY 06/16/22 02/27/23 cloNIDine 0.2 MG/24HR PATCH 1 patch TRANSDERM MO 06/16/22 02/27/23 [Catapres-TTS] modafiniL [Provigil] 200 mg PO BID@0800,1200 06/16/22 02/27/23 Aspirin 81 mg PO DAILY 09/23/22 02/27/23 Ergocalciferol [Vitamin D2 (1250 1,250 mcg PO WE 09/23/22 02/27/23 Mcg = 66100 Iu)] Losartan Potassium 50 mg PO DAILY 09/23/22 02/27/23 Metoprolol Succinate (ER) [Toprol 25 mg PO DAILY 09/23/22 02/27/23 XL] Sevelamer Carbonate 1,600 mg PO ACHS 09/23/22 02/27/23 Torsemide [Demadex] 40 mg PO DAILY 09/23/22 02/27/23 amLODIPine [Norvasc] 10 mg PO DAILY 09/23/22 02/27/23 hydrALAZINE HCL [Apresoline] 50 mg PO TID PRN 09/23/22 02/27/23 Buprenorphine [Butrans 7.5 MCG/HR] 1 patch TOPICAL WE 01/17/23 02/27/23 Cetirizine HCl 10 mg PO DAILY 01/17/23 02/27/23 Ondansetron Odt [Zofran ODT] 4 mg PO QID PRN 01/17/23 02/27/23 Sevelamer [Renvela] 1,600 mg PO DAILY PRN 01/17/23 02/27/23 Sodium Bicarbonate Tab 650 mg PO BID 01/17/23 02/27/23 buPROPion XL [Wellbutrin XL] 150 mg PO DAILY 01/17/23 02/27/23 Insulin Degludec [Tresiba 10 units SQ QAM 02/25/23 02/27/23 Flextouch U-100 Pen] Tirzepatide [Mounjaro] 2.5 mg SQ Q7D 02/25/23 02/27/23 Previous Rx's Medication Instructions Recorded Apixaban [Eliquis] 5 mg PO BID #0 01/31/22 Allergies Allergy/AdvReac Type Severity Reaction Status Date / Time lactose AdvReac Nausea & Verified 02/27/23 17:07 Vomiting & Diarrhea Review of Systems ROS Statement: Those systems with pertinent positive or pertinent negative responses have been documented in the HPI. ROS Other: All systems not noted in ROS Statement are negative. 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 History of Any Multi-Drug Resistant Organisms: MRSA Date of last positivie culture/infection: 04/22/16 MDRO Source:: Right Hand Past Surgical History: Orthopedic Surgery Additional Past Surgical History / Comment(s): Current R chest hemodialysis catheter, PETRA, bilateral eye retinal scraping, cataracts., colonoscopies., RIGHT HAND SURGERY, cystectomy flank. Past Anesthesia/Blood Transfusion Reactions: No Reported Reaction, Motion Sickness Additional Past Anesthesia/Blood Transfusion Reaction / Comment(s): Pt has had blood transfusion without reaction. Past Psychological History: Anxiety, Bipolar, Depression Smoking Status: Never smoker - Past Family History Mother Family Medical History: Diabetes Mellitus, Renal Disease Additional Family Medical History / Comment(s): Mother is alive at age 67yrs with history of diabetes (wears insulin pump).. Brother(s) Family Medical History: Diabetes Mellitus Additional Family Medical History / Comment(s): Patient has 2 brothers and one has history of diabetes and one has no major medical problems. General Exam Limitations: no limitations General appearance: alert, in no apparent distress Respiratory exam: Present: normal lung sounds bilaterally. Absent: respiratory distress, wheezes, rales, rhonchi, stridor Cardiovascular Exam: Present: regular rate, normal rhythm, normal heart sounds. Absent: systolic murmur, diastolic murmur, rubs, gallop, clicks GI/Abdominal exam: Present: tenderness (generalized), guarding, normal bowel sounds Skin exam: Present: other (wilkinson cather noted) Course Vital Signs 02/27/23 02/27/23 02/27/23 11:40 14:02 15:33 Temperature 98 F Pulse Rate 98 92 93 Respiratory 18 18 18 Rate Blood Pressure 131/96 184/91 158/102 O2 Sat by Pulse 100 99 100 Oximetry 02/27/23 17:00 Temperature Pulse Rate Respiratory 20 Rate Blood Pressure 148/101 O2 Sat by Pulse 97 Oximetry Medical Decision Making - Medical Decision Making Was pt. sent in by a medical professional or institution (, PA, TILE SETTER SUPERVISOR, urgent care, hospital, or jail...) When possible be specific @ -No Did you speak to anyone other than the patient for history (EMS, parent, family, police, friend...)? What history was obtained from this source @ -No Did you review nursing and triage notes (agree or disagree)? Why? @ -I reviewed and agree with nursing and triage notes Were old charts reviewed (outside hosp., previous admission, EMS record, old EKG, old radiological studies, urgent care reports/EKG's, jail records)? Report findings @ -Yes I reviewed old charts from 02/25/23. Differential Diagnosis (chest pain, altered mental status, abdominal pain women, abdominal pain men, vaginal bleeding, weakness, fever, dyspnea, syncope, headache, dizziness, GI bleed, back pain, seizure, CVA, palpatations, mental h ealth, musculoskeletal)? @ -Differential Abdominal Pain Men: Appendicitis, cholecystitis, diverticulosis, ischemic bowel, pancreatitis, hepatitis, UTI, gastroenteritis, AAA, incarcerated hernia, bowel obstruction, constipation, inflammatory bowel, hepatitis, peptic ulcer disease, splenic infarction, perforated viscus, testicular torsion, this is not meant to be an all-inclusive listicable EKG interpreted by me (3pts min.). @ -None X-rays interpreted by me (1pt min.). @ -None done CT interpreted by me (1pt min.). @ -None done U/S interpreted by me (1pt. min.). @ -None done What testing was considered but not performed or refused? (CT, X-rays, U/S, labs)? Why? @ -None What meds were considered but not given or refused? Why? @ -None Did you discuss the management of the patient with other professionals (professionals i.e. , PA, TILE SETTER SUPERVISOR, lab, RT, psych nurse, social insurance specialist, immigration lawyer, teacher, employee service officer, pillowcase maker)? Give summary @ -Yes I discussed this case with Dr. Morales who advised admission. Was smoking cessation discussed for >3mins.? @ -No Was critical care preformed (if so, how long)? @ -No Were there social determinants of health that impacted care today? How? (Homelessness, low income, unemployed, alcoholism, drug addiction, transportation, low edu. Level, literacy, decrease access to med. care, fdc, rehab)? @ -No Was there de-escalation of care discussed even if they declined (Discuss DNR or withdrawal of care, Hospice)? DNR status @ -No What co-morbidities impacted this encounter? (DM, HTN, Smoking, COPD, CAD, Cancer, CVA, ARF, Chemo, Hep., AIDS, mental health diagnosis, sleep apnea, morbid obesity)? @ -None Was patient admitted / discharged? Hospital course, mention meds given and route, prescriptions, significant lab abnormalities, going to OR and other pertinent info. @ -Admitted. Labs in the ER were significant for positive acetone, creatinine was 9.78, BUN 68, pH 7.42. Patient was given IV Zofran and by mouth Antivert for symptom control. Upon reevaluation patient was continuously vomiting. I discussed this case with Dr. Morales who advised admission and to consult nephrology for dialysis. I discussed admission with the patient who expressed understanding and agreement with the care plan. Undiagnosed new problem with uncertain prognosis? @ -No Drug Therapy requiring intensive monitoring for toxicity (Heparin, Nitro, Insulin, Cardizem)? @ -No Were any procedures done? @ -No Diagnosis/symptom? @ -Nausea and vomiting Acute, or Chronic, or Acute on Chronic? @ -Acute on chronic Uncomplicated (without systemic symptoms) or Complicated (systemic symptoms)? @ -Complicated Side effects of treatment? @ -No Exacerbation, Progression, or Severe Exacerbation? @ -No Poses a threat to life or bodily function? How? (Chest pain, USA, SC, pneumonia, PE, COPD, DKA, ARF, appy, cholecystitis, CVA, Diverticulitis, Homicidal, Suicidal, threat to staff... and all critical care pts) @ -No - Lab Data Result diagrams: 02/27/23 14:50 02/27/23 14:50 Lab Results 02/27/23 02/27/23 02/27/23 Range/Units 14:50 14:50 14:50 WBC 6.8 (3.8-10.6) k/uL RBC 4.47 (4.30-5.90) m/uL Hgb 12.6 L (13.0-17.5) gm/dL Hct 39.4 (39.0-53.0) % MCV 88.1 (80.0-100.0) fL MCH 28.2 (25.0-35.0) pg MCHC 32.0 (31.0-37.0) g/dL RDW 14.4 (11.5-15.5) % Plt Count 283 (150-450) k/uL MPV 7.3 Neutrophils % 74 % Lymphocytes % 18 % Monocytes % 5 % Eosinophils % 1 % Basophils % 1 % Neutrophils # 5.0 (1.3-7.7) k/uL Lymphocytes # 1.2 (1.0-4.8) k/uL Monocytes # 0.3 (0-1.0) k/uL Eosinophils # 0.1 (0-0.7) k/uL Basophils # 0.0 (0-0.2) k/uL VBG pH (7.31-7.41) VBG pCO2 (37-51) mmHg VBG HCO3 (24-28) mmol/L Sodium 142 (137-145) mmol/L Potassium 4.5 (3.5-5.1) mmol/L Chloride 95 L (98-107) mmol/L Carbon Dioxide 27 (22-30) mmol/L Anion Gap 20 mmol/L BUN 60 H (9-20) mg/dL Creatinine 9.78 H* (0.66-1.25) mg/dL Est GFR (CKD-EPI)AfAm 6 (>60 ml/min/1.73 sqM) Est GFR (CKD-EPI)NonAf 6 (>60 ml/min/1.73 sqM) Glucose 105 H (74-99) mg/dL Calcium 9.6 (8.4-10.2) mg/dL Total Bilirubin 0.6 (0.2-1.3) mg/dL AST 16 L (17-59) U/L ALT 11 (4-49) U/L Alkaline Phosphatase 71 (38-126) U/L Total Protein 7.7 (6.3-8.2) g/dL Albumin 4.8 (3.5-5.0) g/dL Amylase 64 (30-110) U/L Lipase 82 (23-300) U/L Urine Color Yellow Urine Appearance Turbid (Clear) Urine pH 6.0 (5.0-8.0) Ur Specific [place] 1.023 (1.001-1.035) Urine Protein 3+ H (Negative) Urine Glucose (UA) Trace H (Negative) Urine Ketones Negative (Negative) Urine Blood Large H (Negative) Urine Nitrite Negative (Negative) Urine Bilirubin Negative (Negative) Urine Urobilinogen <2.0 (<2.0) mg/dL Ur Leukocyte Esterase Moderate H (Negative) Urine RBC >182 H (0-5) /hpf Urine WBC 66 H (0-5) /hpf Ur Squamous Epith Cells 1 (0-4) /hpf Urine Bacteria Rare H (None) /hpf Acetone, Qual Positive (Negative) 02/27/23 Range/Units 15:30 WBC (3.8-10.6) k/uL RBC (4.30-5.90) m/uL Hgb (13.0-17.5) gm/dL Hct (39.0-53.0) % MCV (80.0-100.0) fL MCH (25.0-35.0) pg MCHC (31.0-37.0) g/dL RDW (11.5-15.5) % Plt Count (150-450) k/uL MPV Neutrophils % % Lymphocytes % % Monocytes % % Eosinophils % % Basophils % % Neutrophils # (1.3-7.7) k/uL Lymphocytes # (1.0-4.8) k/uL Monocytes # (0-1.0) k/uL Eosinophils # (0-0.7) k/uL Basophils # (0-0.2) k/uL VBG pH 7.42 H (7.31-7.41) VBG pCO2 41 (37-51) mmHg VBG HCO3 27 (24-28) mmol/L Sodium (137-145) mmol/L Potassium (3.5-5.1) mmol/L Chloride (98-107) mmol/L Carbon Dioxide (22-30) mmol/L Anion Gap mmol/L BUN (9-20) mg/dL Creatinine (0.66-1.25) mg/dL Est GFR (CKD-EPI)AfAm (>60 ml/min/1.73 sqM) Est GFR (CKD-EPI)NonAf (>60 ml/min/1.73 sqM) Glucose (74-99) mg/dL Calcium (8.4-10.2) mg/dL Total Bilirubin (0.2-1.3) mg/dL AST (17-59) U/L ALT (4-49) U/L Alkaline Phosphatase (38-126) U/L Total Protein (6.3-8.2) g/dL Albumin (3.5-5.0) g/dL Amylase (30-110) U/L Lipase (23-300) U/L Urine Color Urine Appearance (Clear) Urine pH (5.0-8.0) Ur Specific [place] (1.001-1.035) Urine Protein (Negative) Urine Glucose (UA) (Negative) Urine Ketones (Negative) Urine Blood (Negative) Urine Nitrite (Negative) Urine Bilirubin (Negative) Urine Urobilinogen (<2.0) mg/dL Ur Leukocyte Esterase (Negative) Urine RBC (0-5) /hpf Urine WBC (0-5) /hpf Ur Squamous Epith Cells (0-4) /hpf Urine Bacteria (None) /hpf Acetone, Qual (Negative) Disposition Clinical Impression: ESRD (end stage renal disease), Nausea & vomiting Disposition: ADMITTED IP TO THIS [facility] Condition: Stable Decision Time: 17:43
[2023-02-27 15:50] LABS: VBG PH 7.42 (7.31-7.41)
[2023-02-27] MEDS ORDERED: NALOXONE 0.4 MG/ML 1 ML VIAL IV PRN (16:23)
[2023-02-27 21:21] LABS: Glucose,Whole Blood 128 mg/dL (70-110)
[2023-02-27] MEDS: hydrALAZINE HCL 50 MG TAB PO PRN (21:28)
[2023-02-27] MEDS: ONDANSETRON 4 MG/2 ML VIAL IVP PRN (21:38)
[2023-02-28] MEDS: hydrALAZINE HCL 50 MG TAB PO PRN (04:23)
[2023-02-28] MEDS: ONDANSETRON 4 MG/2 ML VIAL IVP PRN ×2 (04:24→15:59)
[2023-02-28 06:28] LABS: Glucose,Whole Blood 73 mg/dL (70-110)
[2023-02-28] MEDS: METOPROLOL SUCCINATE (ER) 25 MG TAB.ER.24H PO SCH (08:44)
[2023-02-28] MEDS: LOSARTAN 50 MG TAB PO SCH (08:45)
[2023-02-28] MEDS: VENLAFAXINE HCL ER 150 MG CAP PO SCH (08:45)
[2023-02-28] MEDS: amLODIPine 10 MG TAB PO SCH (08:45)
[2023-02-28] MEDS: buPROPion XL 150 MG TAB.ER.24H PO SCH (08:45)
[2023-02-28] MEDS ORDERED: PROMETHAZINE 25 MG TAB PO PRN (09:49)
[2023-02-28] MEDS ORDERED: SEVELAMER 800 MG TAB PO PRN (09:59)
--- NOTE | 2023-02-28 09:59 | P.HPIM ---
History of Present Illness This is a pleasant 52 years old male with past medical history of Heart Failure, CVA/TIA, Diabetes Mellitus, GERD/Reflux, Hypertension,ESRD ON HD, Sleep Apnea/CPAP/BIPAP,CVA in 2019 and 2020/L arm paralysis and L leg weakness/stands and pivots to wheelchair, hx falls, gastroparesis, autonomic dysfunction, CKD/hemodialysis on //, BPH, hypotension at times, vertigo when first stands, ELISSA/does not wear his cpap, bilateral glaucoma/retinal problems , anemia, torn right rotator cuff., pain left arm,neck and back., pt has recurrent UTI, indwelling wilkinson catheter. Patient was recently in the hospital for similar complaint and he was discharged after changing his Wilkinson catheter. Patient presents because of recurrent nausea vomiting, he cannot hold anything down during or encounters he started vomiting 2-3 times with dark brown vomitus. He denies abdominal pain or distention. He had bowel movement this morning which was loose but not watery. He has chronic indwelling Wilkinson catheter, he denies urinary symptoms A dyspnea. Patient at baseline and is bedbound and wheelchair bound, he is on liquids for history of stroke 2. He denies smoking alcohol or illicit drugs. No new weakness numbness. Labs and medication were reviewed.. Continue same treatment. Continue with symptomatic treatment. Resume home medication. Monitor labs and vitals. DVT and GI prophylaxis. Further recommendations as per clinical course of the patient DVT prophylaxis: eliquis GI Prophylaxis: Ppi Prognosis is guarded Review of Systems Review of systems CONSTITUTIONAL: No fever, no malaise, no fatigue. HEENT: No recent visual problems or hearing problems. Denied any sore throat. CARDIOVASCULAR: No orthopnea, PND, no palpitations, no syncope. PULMONARY: No shortness of breath, no cough, no hemoptysis. GASTROINTESTINAL: no abdominal pain. Normoactive bowel sounds. NEUROLOGICAL: No headaches, no weakness, no numbness. HEMATOLOGICAL: Denies any bleeding or petechiae. GENITOURINARY: Denies any burning micturition, frequency, or urgency. MUSCULOSKELETAL/RHEUMATOLOGICAL: Denies any joint pain, swelling, or any muscle pain. ENDOCRINE: Denies any polyuria or polydipsia. Past Medical History Past Medical History: Heart Failure, CVA/TIA, Diabetes Mellitus, Eye Disorder, GERD/Reflux, Hypertension, Musculoskeletal Disorder, Prostate Disorder, Renal Disease, Sleep Apnea/CPAP/BIPAP Additional Past Medical History / Comment(s): CVA in 2019 and 2020/L arm paralysis and L leg weakness/stands and pivots to wheelchair, hx falls., IDDM type II, neuropathy bilateral legs/feet, gastroparesis, autonomic dysfunction, CKD/hemodialysis on //, BPH, hypotension at times, vertigo when first stands, ELISSA/does not wear his cpap, bilateral glaucoma/retinal problems , anemia, torn right rotator cuff., pain left arm,neck and back., pt has recurrent UTI, indwelling wilkinson catheter. History of Any Multi-Drug Resistant Organisms: MRSA Date of last positivie culture/infection: 04/22/16 MDRO Source:: Right Hand Past Surgical History: Orthopedic Surgery Additional Past Surgical History / Comment(s): Current R chest hemodialysis catheter, PETRA, bilateral eye retinal scraping, cataracts., colonoscopies., RIGHT HAND SURGERY, cystectomy flank. Past Anesthesia/Blood Transfusion Reactions: No Reported Reaction, Motion Sickness Additional Past Anesthesia/Blood Transfusion Reaction / Comment(s): Pt has had blood transfusion without reaction. Past Psychological History: Anxiety, Bipolar, Depression Additional Psychological History / Comment(s): Resides with mother and has caregiver. Pt is W/C bound. Has wilkinson catheter and R chest hemodialysis cath. Smoking Status: Never smoker Past Alcohol Use History: None Reported Additional Past Alcohol Use History / Comment(s): Pt resides with his mother. He has a health worker named Arlen Friday thru FRIDAY.. She cleans, organizes medications and make sure he is taking his meds, helps with meals.. Pt can ambulate short distances with a walker. He has falls. Past Drug Use History: None Reported - Past Family History Mother Family Medical History: Diabetes Mellitus, Renal Disease Additional Family Medical History / Comment(s): Mother is alive at age 67yrs with history of diabetes (wears insulin pump).. Brother(s) Family Medical History: Diabetes Mellitus Additional Family Medical History / Comment(s): Patient has 2 brothers and one has history of diabetes and one has no major medical problems. Medications and Allergies Home Medications Medication Instructions Recorded Confirmed Type Omeprazole 20 mg PO BID 03/27/20 02/27/23 History Apixaban [Eliquis] 5 mg PO BID #0 01/31/22 02/27/23 Rx Fexofenadine HCl [Ana Allergy] 180 mg PO DAILY 06/16/22 02/27/23 History Methenamine Hippurate [Hiprex] 1 gm PO BID 06/16/22 02/27/23 History Venlafaxine HCl ER [Effexor XR] 150 mg PO DAILY 06/16/22 02/27/23 History cloNIDine 0.2 MG/24HR PATCH 1 patch TRANSDERM MO 06/16/22 02/27/23 History [Catapres-TTS] modafiniL [Provigil] 200 mg PO BID@0800,1200 06/16/22 02/27/23 History Aspirin 81 mg PO DAILY 09/23/22 02/27/23 History Ergocalciferol [Vitamin D2 (1250 1,250 mcg PO WE 09/23/22 02/27/23 History Mcg = 01481 Iu)] Losartan Potassium 50 mg PO DAILY 09/23/22 02/27/23 History Metoprolol Succinate (ER) [Toprol 25 mg PO DAILY 09/23/22 02/27/23 History XL] Sevelamer Carbonate 1,600 mg PO ACHS 09/23/22 02/27/23 History Torsemide [Demadex] 40 mg PO DAILY 09/23/22 02/27/23 History amLODIPine [Norvasc] 10 mg PO DAILY 09/23/22 02/27/23 History hydrALAZINE HCL [Apresoline] 50 mg PO TID PRN 09/23/22 02/27/23 History Buprenorphine [Butrans 7.5 MCG/HR] 1 patch TOPICAL WE 01/17/23 02/27/23 History Cetirizine HCl 10 mg PO DAILY 01/17/23 02/27/23 History Ondansetron Odt [Zofran ODT] 4 mg PO QID PRN 01/17/23 02/27/23 History Sevelamer [Renvela] 1,600 mg PO DAILY PRN 01/17/23 02/27/23 History Sodium Bicarbonate Tab 650 mg PO BID 01/17/23 02/27/23 History buPROPion XL [Wellbutrin XL] 150 mg PO DAILY 01/17/23 02/27/23 History Insulin Degludec [Tresiba 10 units SQ QAM 02/25/23 02/27/23 History Flextouch U-100 Pen] Tirzepatide [Mounjaro] 2.5 mg SQ Q7D 02/25/23 02/27/23 History Allergies Allergy/AdvReac Type Severity Reaction Status Date / Time lactose AdvReac Nausea & Verified 02/27/23 17:07 Vomiting & Diarrhea Physical Exam Vitals: Vital Signs Temp Pulse Pulse Resp BP BP Pulse Ox 02/28/23 07:26 98.1 F 95 20 142/81 98 02/28/23 05:12 98.4 F 90 18 148/81 98 02/28/23 02:00 98.2 F 92 164/94 98 02/27/23 21:15 98.6 F 94 18 202/106 98 02/27/23 20:00 90 18 185/96 97 02/27/23 18:25 97 18 169/116 99 02/27/23 17:00 20 148/101 97 02/27/23 15:33 93 18 158/102 100 02/27/23 14:02 92 18 184/91 99 02/27/23 11:40 98 F 98 18 131/96 100 Intake and Output 02/27/23 02/28/23 02/28/23 22:59 06:59 14:59 Output Total 280 Balance -280 Output: Urine 280 Other: # Bowel Movements 1 Weight 77.111 kg GENERAL: The patient is alert and oriented x3, not in any acute distress. Well developed, well nourished. HEENT: Pupils are round and equally reacting to light. EOMI. No scleral icterus. No conjunctival pallor. Normocephalic, atraumatic. No pharyngeal erythema. No thyromegaly. CARDIOVASCULAR: S1 and S2 present. No murmurs, rubs, or gallops. PULMONARY: Chest is clear to auscultation, no wheezing , no crackles. ABDOMEN: Soft, nontender, nondistended, normoactive bowel sounds. No palpable organomegaly. MUSCULOSKELETAL: No joint swelling or deformity. EXTREMITIES: No cyanosis, clubbing, or pedal edema. -NEUROLOGICAL: Gross neurological examination did not reveal any gross focal deficits and the cranial nerves,. Chronic mild left hemiparesis. Sensation intact SKIN: No rashes. no petechiae. Results CBC & Chem 7: 11/09/23 14:50 02/27/23 14:50 Labs: Abnormal Lab Results - Last 24 Hours (Table) 02/27/23 02/27/23 02/27/23 Range/Units 14:50 14:50 14:50 Hgb 12.6 L (13.0-17.5) gm/dL VBG pH (7.31-7.41) Chloride 95 L (98-107) mmol/L BUN 60 H (9-20) mg/dL Creatinine 9.78 H* (0.66-1.25) mg/dL Glucose 105 H (74-99) mg/dL POC Glucose (mg/dL) (70-110) mg/dL AST 16 L (17-59) U/L Procalcitonin (0.02-0.09) ng/mL Urine Protein 3+ H (Negative) Urine Glucose (UA) Trace H (Negative) Urine Blood Large H (Negative) Ur Leukocyte Esterase Moderate H (Negative) Urine RBC >182 H (0-5) /hpf Urine WBC 66 H (0-5) /hpf Urine Bacteria Rare H (None) /hpf 02/27/23 02/27/23 02/28/23 Range/Units 15:30 21:19 01:03 Hgb (13.0-17.5) gm/dL VBG pH 7.42 H (7.31-7.41) Chloride (98-107) mmol/L BUN (9-20) mg/dL Creatinine (0.66-1.25) mg/dL Glucose (74-99) mg/dL POC Glucose (mg/dL) 128 H (70-110) mg/dL AST (17-59) U/L Procalcitonin 0.25 H (0.02-0.09) ng/mL Urine Protein (Negative) Urine Glucose (UA) (Negative) Urine Blood (Negative) Ur Leukocyte Esterase (Negative) Urine RBC (0-5) /hpf Urine WBC (0-5) /hpf Urine Bacteria (None) /hpf Thrombosis Risk Factor Assmnt - Choose All That Apply Each Factor Represents 1 point: Age 41-60 years Thrombosis Risk Factor Assessment Total Risk Factor Score: 1 Thrombosis Risk Factor Assessment Level: Low Risk Assessment and Plan Assessment: Recurrent nausea vomiting and inability to eat with mild loose bowel movement no abdominal pain Possible acute or tract infection related to Wilkinson catheter, present on admission Diabetes mellitus Hypertension Hyperlipidemia History of osteoarthritis History of CVA with left hemiparesis, patient is bedbound and wheelchair bound at baseline History of gastroparesis and anatomic dysfunction History of vertigo History of sleep apnea History of glaucoma History of rotator cuff History of recurrent UTI Plan: Start ceftriaxone, follow-up urine culture Continue with Wilkinson catheter, discussed risks staff to change it Continue with Zofran when necessary. Also rule out recommend for better control and in case he has also gastroparesis related to his diabetes mellitus Check hemoglobin A1c. Check occult blood and gastric vomitus Monitor hemoglobin. Check KUB. Nephrology consult for hemodialysis Labs and medication were reviewed.. Continue same treatment. Continue with symptomatic treatment. Resume home medication. Monitor lytes and vitals. DVT and GI prophylaxis. Further recommendations depends on the clinical course of the patient DVT prophylaxis: Sub on ELIQUIIS GI Prophylaxis: Ppi Prognosis is guarded
--- NOTE | 2023-02-28 10:42 | XR ---
EXAMINATION TYPE: XR KUB portable DATE OF EXAM: 02/28/2023 COMPARISON: KUB 01/27/2022 HISTORY: Recurrent vomiting TECHNIQUE: Single supine KUB image of the abdomen is obtained FINDINGS: Small bowel demonstrates no evidence for dilatation or air fluid levels. Gas and fecal material is seen in non-distended colon. Rectal fecaloma measuring up to 9.4 cm. No unusual calcifications. The lung bases are clear. The osseous structures are intact. Osteoarthritic changes of both hips. Degenerative changes of the l umbar spine. IMPRESSION: Overall nonobstructive bowel gas pattern.. Mild colonic stool burden with rectal fecaloma measuring u p to 9.4 cm.
[2023-02-28 11:01] LABS: Glucose,Whole Blood 83 mg/dL (70-110)
--- NOTE | 2023-02-28 11:11 | P.NPCON ---
History of Present Illness - Reason for Consult end stage renal disease - History of Present Illness Patient is a 52-year-old male with end-stage renal disease on hemodialysis on a Friday schedule. He is admitted to the hospital with nausea and vomiting. Patient was here 2 days ago and was discharged from the ER after hemodialysis in the ER. He states that the nausea did not improve. No complaints of fever or chills No complaints of diarrhea. Blood pressure has been high Patient missed his dialysis yesterday. Serum creatinine was 9.7 mg/dL. 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 History of Any Multi-Drug Resistant Organisms: MRSA Date of last positivie culture/infection: 04/22/16 MDRO Source:: Right Hand Past Surgical History: Orthopedic Surgery Additional Past Surgical History / Comment(s): Current R chest hemodialysis catheter, PETRA, bilateral eye retinal scraping, cataracts., colonoscopies., RIGHT HAND SURGERY, cystectomy flank. Past Anesthesia/Blood Transfusion Reactions: No Reported Reaction, Motion Sickness Additional Past Anesthesia/Blood Transfusion Reaction / Comment(s): Pt has had blood transfusion without reaction. Past Psychological History: Anxiety, Bipolar, Depression Additional Psychological History / Comment(s): Resides with mother and has ca regiver. Pt is W/C bound. Has wilkinson catheter and R chest hemodialysis cath. Smoking Status: Never smoker Past Alcohol Use History: None Reported Additional Past Alcohol Use History / Comment(s): Pt resides with his mother. He has a health worker named Arlen Friday thru FRIDAY.. She cleans, organizes medications and make sure he is taking his meds, helps with meals.. Pt can ambulate short distances with a walker. He has falls. Past Drug Use History: None Reported - Past Family History Mother Family Medical History: Diabetes Mellitus, Renal Disease Additional Family Medical History / Comment(s): Mother is alive at age 67yrs with history of diabetes (wears insulin pump).. Brother(s) Family Medical History: Diabetes Mellitus Additional Family Medical History / Comment(s): Patient has 2 brothers and one has history of diabetes and one has no major medical problems. Medications and Allergies Home Medications Medication Instructions Recorded Confirmed Type Omeprazole 20 mg PO BID 03/27/20 02/27/23 History Apixaban [Eliquis] 5 mg PO BID #0 01/31/22 02/27/23 Rx Fexofenadine HCl [Ana Allergy] 180 mg PO DAILY 06/16/22 02/27/23 History Methenamine Hippurate [Hiprex] 1 gm PO BID 06/16/22 02/27/23 History Venlafaxine HCl ER [Effexor XR] 150 mg PO DAILY 06/16/22 02/27/23 History cloNIDine 0.2 MG/24HR PATCH 1 patch TRANSDERM MO 06/16/22 02/27/23 History [Catapres-TTS] modafiniL [Provigil] 200 mg PO BID@0800,1200 06/16/22 02/27/23 History Aspirin 81 mg PO DAILY 09/23/22 02/27/23 History Ergocalciferol [Vitamin D2 (1250 1,250 mcg PO WE 09/23/22 02/27/23 History Mcg = 01250 Iu)] Losartan Potassium 50 mg PO DAILY 09/23/22 02/27/23 History Metoprolol Succinate (ER) [Toprol 25 mg PO DAILY 09/23/22 02/27/23 History XL] Sevelamer Carbonate 1,600 mg PO ACHS 09/23/22 02/27/23 History Torsemide [Demadex] 40 mg PO DAILY 09/23/22 02/27/23 History amLODIPine [Norvasc] 10 mg PO DAILY 09/23/22 02/27/23 History hydrALAZINE HCL [Apresoline] 50 mg PO TID PRN 09/23/22 02/27/23 History Buprenorphine [Butrans 7.5 MCG/HR] 1 patch TOPICAL WE 01/17/23 02/27/23 History Cetirizine HCl 10 mg PO DAILY 01/17/23 02/27/23 History Ondansetron Odt [Zofran ODT] 4 mg PO QID PRN 01/17/23 02/27/23 History Sevelamer [Renvela] 1,600 mg PO DAILY PRN 01/17/23 02/27/23 History Sodium Bicarbonate Tab 650 mg PO BID 01/17/23 02/27/23 History buPROPion XL [Wellbutrin XL] 150 mg PO DAILY 01/17/23 02/27/23 History Insulin Degludec [Tresiba 10 units SQ QAM 02/25/23 02/27/23 History Flextouch U-100 Pen] Tirzepatide [Mounjaro] 2.5 mg SQ Q7D 02/25/23 02/27/23 History Allergies Allergy/AdvReac Type Severity Reaction Status Date / Time lactose AdvReac Nausea & Verified 02/27/23 17:07 Vomiting & Diarrhea Physical Exam Vitals: Vital Signs Temp Pulse Pulse Resp BP BP Pulse Ox 02/28/23 07:26 98.1 F 95 20 142/81 98 02/28/23 05:12 98.4 F 90 18 148/81 98 02/28/23 02:00 98.2 F 92 164/94 98 02/27/23 21:15 98.6 F 94 18 202/106 98 02/27/23 20:00 90 18 185/96 97 02/27/23 18:25 97 18 169/116 99 02/27/23 17:00 20 148/101 97 02/27/23 15:33 93 18 158/102 100 02/27/23 14:02 92 18 184/91 99 02/27/23 11:40 98 F 98 18 131/96 100 Intake and Output 02/27/23 02/28/23 02/28/23 22:59 06:59 14:59 Output Total 280 Balance -280 Output: Urine 280 Other: # Bowel Movements 1 Weight 77.111 kg Awake, comfortable, nauseated with recent emesis Examination of the heart S1 and S2 Examination of the lungs bilateral breath sounds are heard Abdomen is soft nontender Examination lower extremity shows no evidence of edema Patient has chronic indwelling Wilkinson catheter 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 End-stage renal disease maintained on hemodialysis 2. Nausea and vomiting most likely related to diabetic gastroparesis 3. History of CVA up with some degree of left hemiparesis 4. Hypertension, uncontrolled secondary to severe nausea and vomiting Plan: Hemodialysis today and repeat in a.m. Continue current antihypertensive treatment Symptomatic treatment of nausea Consider abdominal imaging if nausea and vomiting not improved. Thank you for the consultation. We will continue to follow the patient with you during his hospitalization.
[2023-02-28] MEDS ORDERED: bisacodyL 10 MG SUPP RECTAL STA (13:43)
[2023-02-28] MEDS: PANTOPRAZOLE 40 MG/10 ML VIAL IVP SCH (15:59)
[2023-02-28 17:01] LABS: Glucose,Whole Blood 89 mg/dL (70-110)
[2023-02-28 20:24] LABS: Glucose,Whole Blood 76 mg/dL (70-110)
[2023-02-28] MEDS: APIXABAN 5 MG TAB PO SCH (20:34)
[2023-03-01 05:52] LABS: Glucose,Whole Blood 63 mg/dL (70-110)
[2023-03-01] MEDS: ONDANSETRON 4 MG/2 ML VIAL IVP PRN (05:58)
[2023-03-01 06:03] LABS: Glucose,Whole Blood 69 mg/dL (70-110)
[2023-03-01 06:25] LABS: Glucose,Whole Blood 68 mg/dL (70-110)
[2023-03-01] MEDS ORDERED: DEXTROSE 50% SYRINGE 50 ML IVP STA (06:25)
[2023-03-01 06:30] LABS: Glucose,Whole Blood 76 mg/dL (70-110)
[2023-03-01] MEDS: METOPROLOL SUCCINATE (ER) 25 MG TAB.ER.24H PO SCH (08:13)
[2023-03-01] MEDS: buPROPion XL 150 MG TAB.ER.24H PO SCH (08:13)
[2023-03-01] MEDS: APIXABAN 5 MG TAB PO SCH ×2 (08:13→20:15)
[2023-03-01] MEDS: LORATADINE 10 MG TAB PO SCH (08:13)
[2023-03-01] MEDS: VENLAFAXINE HCL ER 150 MG CAP PO SCH (08:13)
--- NOTE | 2023-03-01 08:21 | P.PN ---
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 Patient was recently in the hospital for similar complaint and he was discharged after changing his Wilkinson catheter. Patient presents because of recurrent nausea vomiting, he cannot hold anything down during or encounters he started vomiting 2-3 times with dark brown vomitus. He denies abdominal pain or distention. He had bowel movement this morning which was loose but not watery. He has chronic indwelling Wilkinson catheter, he denies urinary symptoms A dyspnea. Patient at baseline and is bedbound and wheelchair bound, he is on liquids for history of stroke 2. He denies smoking alcohol or illicit drugs. No new weakness numbness. 03/01/2023 Patient still complain from nausea and occasional vomiting although he hasn't had vomiting yesterday. His nausea comes up even with postural changes when he sits up like And this morning and associated with very mild epigastric tenderness but no pain. He says that his bowel movement was little amounts yesterday due to loose but not watery Is currently on liquid diet and is located in June but request to be advanced to soft diet, discussed with the staff to advise that if he tolerates liquid diet. Wilkinson catheter in place Urine culture showing lisa, therefore no sonographic evidence of infection and Rocephin can be discontinued Patient is found this not working,, reglan can not be used because of the drug to drug interaction with his effexor and wellbutrin causing eps s.e , this will limits medication Used, he was placed on Phenergan when necessary small dose. Patient also currently on IV fluids and he is undergoing hemodialysis Discussed with staff Active Medications Generic Name Dose Route Start Last Admin Trade Name Freq PRN Reason Stop Dose Admin Amlodipine Besylate 10 mg 02/28/23 09:00 02/28/23 08:45 Amlodipine 10 Mg Tab PO 10 mg DAILY KERVIN Administration Apixaban 5 mg 02/28/23 21:00 03/01/23 08:13 Apixaban 5 Mg Tab PO 5 mg BID KERVIN Administration Protocol Bupropion HCl 150 mg 02/28/23 09:00 03/01/23 08:13 Bupropion Xl 150 Mg Tab.Er.24h PO 150 mg DAILY KERVIN Administration Clonidine HCl 1 patch 03/03/23 09:00 Clonidine 0.2 Mg/24hr Patch TRANSDERM MO KERVIN Hydralazine HCl 50 mg 02/27/23 17:38 02/28/23 04:23 Hydralazine Hcl 50 Mg Tab PO 50 mg TID PRN Administration systolic B/P >140 Loratadine 10 mg 03/01/23 09:00 03/01/23 08:13 Loratadine 10 Mg Tab PO 10 mg DAILY KERVIN Administration Losartan Potassium 50 mg 02/28/23 09:00 02/28/23 08:45 Losartan 50 Mg Tab PO 50 mg DAILY KERVIN Administration Metoprolol Succinate 25 mg 02/28/23 09:00 03/01/23 08:13 Metoprolol Succinate (Er) 25 Mg Tab.Er.24h PO 25 mg DAILY KERVIN Administration Modafinil 200 mg 02/28/23 12:00 03/01/23 08:13 Modafinil 200 Mg Tab PO 200 mg BID@0800,1200 KERVIN Administration Naloxone HCl 0.2 mg 02/27/23 16:23 Naloxone 0.4 Mg/Ml 1 Ml Vial IV Q2M PRN Opioid Reversal Ondansetron HCl 4 mg 02/27/23 16:23 03/01/23 05:58 Ondansetron 4 Mg/2 Ml Vial IVP 4 mg Q8HR PRN Administration Nausea And Vomiting Pantoprazole Sodium 40 mg 02/28/23 10:15 02/28/23 15:59 Pantoprazole 40 Mg/10 Ml Vial IVP 40 mg DAILY KERVIN Administration Promethazine HCl 12.5 mg 02/28/23 09:49 Promethazine 25 Mg Tab PO Q6HR PRN Nausea And Vomiting Sevelamer Carbonate 1,600 mg 02/28/23 09:59 Sevelamer 800 Mg Tab PO DAILY PRN WITH A SNACK Venlafaxine HCl 150 mg 02/28/23 09:00 03/01/23 08:13 Venlafaxine Hcl Er 150 Mg Cap PO 150 mg DAILY KERVIN Administration Objective - Vital Signs Vital signs: Vital Signs Temp 98.5 F 03/01/23 02:11 Pulse 91 03/01/23 02:11 Resp 18 03/01/23 02:11 BP 109/70 03/01/23 02:11 Pulse Ox 93 L 03/01/23 02:11 FiO2 Intake & Output 02/28/23 03/01/23 03/01/23 18:59 06:59 18:59 Intake Total 300 Output Total 1500 Balance -1200 Intake: Hemodialysis 300 Output: Hemodialysis 1500 Other: Voiding Method Indwelling Catheter # Bowel Movements 1 - Exam GENERAL: The patient is alert and oriented x3, not in any acute distress. Well developed, well nourished. HEENT: Pupils are round and equally reacting to light. EOMI. No scleral icterus. No conjunctival pallor. Normocephalic, atraumatic. No pharyngeal erythema. No thyromegaly. CARDIOVASCULAR: S1 and S2 present. No murmurs, rubs, or gallops. PULMONARY: Chest is clear to auscultation, no wheezing , no crackles. ABDOMEN: Soft, nontender, nondistended, normoactive bowel sounds. No palpable or ganomegaly. MUSCULOSKELETAL: No joint swelling or deformity. EXTREMITIES: No cyanosis, clubbing, or pedal edema. -NEUROLOGICAL: Gross neurological examination did not reveal any focal deficits. Chronic left hemiparesis, more upper extremity SKIN: No rashes. no petechiae. - Labs CBC & Chem 7: 02/27/23 14:50 02/27/23 14:50 Labs: Abnormal Lab Results - Last 24 Hours (Table) 03/01/23 03/01/23 03/01/23 Range/Units 05:44 06:01 06:16 POC Glucose (mg/dL) 63 L 69 L 68 L (70-110) mg/dL Microbiology - Last 24 Hours (Table) 02/27/23 14:50 Urine Culture - Final Urine,Clean Catch Assessment and Plan Assessment: Recurrent nausea vomiting and inability to eat with mild loose bowel movement no abdominal pain Possible acute or tract infection related to Wilkinson catheter, present on admission Diabetes mellitus Hypertension Hyperlipidemia History of osteoarthritis History of CVA with left hemiparesis, patient is bedbound and wheelchair bound at baseline History of gastroparesis and anatomic dysfunction History of vertigo History of sleep apnea History of glaucoma History of rotator cuff History of recurrent UTI Plan: Discontinue ceftriaxone, no evidence of UTI Continue with Zofran when necessary. Continue with Phenergan when necessary. Also rule out recommend for better control and in case he has also gastroparesis related to his diabetes mellitus Check hemoglobin A1c. Check occult blood and gastric vomitus Monitor hemoglobin. Nephrology consult for hemodialysis Labs and medication were reviewed.. Continue same treatment. Continue with symptomatic treatment. Resume home medication. Monitor lytes and vitals. DVT and GI prophylaxis. Further recommendations depends on the clinical course of the patient DVT prophylaxis: on ELIQUIIS GI Prophylaxis: Ppi Prognosis is guarded
[2023-03-01] MEDS ORDERED: NON FORMULARY DRUG (Fexofenadine Hcl [Allegra Allergy] 180 MG Tablet) PO SCH (09:00)
[2023-03-01 09:01] LABS: Basophils % (A) 1 %; Eosinophils # (A) 0.3 k/uL (0-0.7); Eosinophils % (A) 4 %; HCT 38.7 % (39.0-53.0); HGB 12.2 gm/dL (13.0-17.5); Lymphocytes # (A) 1.8 k/uL (1.0-4.8); Lymphocytes % (A) 25 %; MCH 28.4 pg (25.0-35.0); MCHC 31.5 g/dL (31.0-37.0); MCV 90.2 fL (80.0-100.0); Mean Platelet Volume 7.2; Monocytes # (A) 0.5 k/uL (0-1.0); Monocytes % (A) 7 %; Neutrophils # (A) 4.3 k/uL (1.3-7.7); Neutrophils % (A) 62 %; Platelet Count 263 k/uL (150-450); RBC 4.29 m/uL (4.30-5.90)
[2023-03-01] MEDS: amLODIPine 10 MG TAB PO SCH (09:07)
[2023-03-01] MEDS: LOSARTAN 50 MG TAB PO SCH (09:07)
--- NOTE | 2023-03-01 10:52 | US ---
EXAMINATION TYPE: US liver DATE OF EXAM: 03/01/2023 COMPARISON: NONE CLINICAL INDICATION: Male, 52 years old with history of persistent nausea; Persistent nausea TECHNIQUE: Multiple sonographic images of the right upper quadrant are obtained. FINDINGS: EXAM MEASUREMENTS: Liver Length: 16.2 cm Gallbladder Wall: 0.3 cm CBD: 0.2 cm Right Kidney: 9.8 x 4.5 x 4.8 cm Pancreas: Obscured by bowel gas Liver: Limited, intercostal views- no abnormality could be appreciated increased echotexture no patino spicious masses or dilated ducts. Gallbladder: Distended with possible sludge and small, "gravel" stones near neck/ wall not thickened Evidence for sonographic Ch's sign: No CBD: wnl Right Kidney: No evidence of hydro IMPRESSION: 1. Possible small gallstones present. Evaluation somewhat limited. 2. Hepatic steatosis.
[2023-03-01 11:15] LABS: Glucose,Whole Blood 84 mg/dL (70-110)
--- NOTE | 2023-03-01 11:19 | P.PN ---
Subjective Patient is seen for follow-up for end-stage renal disease. He is currently seen on hemodialysis Nausea seems to have improved but still present. Oral intake remains low. Blood pressure is much improved as well. Status post UF 1.5 L yesterday. Goal UF today about 1 L Objective - Vital Signs Vital signs: Vital Signs Temp 98.3 F 03/01/23 07:47 Pulse 86 03/01/23 07:47 Resp 14 03/01/23 07:47 BP 139/86 03/01/23 07:47 Pulse Ox 100 03/01/23 07:47 FiO2 Intake & Output 02/28/23 03/01/23 03/01/23 18:59 06:59 18:59 Intake Total 300 Output Total 1500 Balance -1200 Intake: Hemodialysis 300 Output: Hemodialysis 1500 Other: Voiding Method Indwelling Catheter Indwelling Catheter # Bowel Movements 1 - Exam Awake, comfortable, Examination of the heart S1 and S2 Examination of the lungs bilateral breath sounds are heard Abdomen is soft nontender Examination lower extremity shows no evidence of edema Patient has chronic indwelling Rosado catheter 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 End-stage renal disease maintained on hemodialysis 2. Nausea and vomiting most likely related to diabetic gastroparesis, ultrasound being done rule out gallstones. 3. History of CVA up with some degree of left hemiparesis 4. Hypertension, uncontrolled secondary to severe nausea and vomiting Plan: Hemodialysis today with goal UF of 0.5-1 L Continue current antihypertensive treatment Symptomatic treatment of nausea Follow-up on ultrasound of the abdomen.
[2023-03-01] MEDS: PANTOPRAZOLE 40 MG/10 ML VIAL IVP SCH (11:34)
[2023-03-01 16:15] LABS: Glucose,Whole Blood 80 mg/dL (70-110)
[2023-03-01] MEDS: hydrALAZINE HCL 50 MG TAB PO PRN (20:19)
[2023-03-01 20:29] LABS: Glucose,Whole Blood 97 mg/dL (70-110)
[2023-03-01 23:52] LABS: Hepatitis B Surface AB- Quant 3.5 mIU/mL
[2023-03-02 00:14] LABS: Hepatitis B Surface Antigen Nonreactive
[2023-03-02 05:50] LABS: Glucose,Whole Blood 93 mg/dL (70-110)
[2023-03-02] MEDS: buPROPion XL 150 MG TAB.ER.24H PO SCH (08:18)
[2023-03-02] MEDS: amLODIPine 10 MG TAB PO SCH (08:18)
[2023-03-02] MEDS: LOSARTAN 50 MG TAB PO SCH (08:18)
[2023-03-02] MEDS: APIXABAN 5 MG TAB PO SCH ×2 (08:18→20:50)
[2023-03-02] MEDS: METOPROLOL SUCCINATE (ER) 25 MG TAB.ER.24H PO SCH (08:18)
[2023-03-02] MEDS: VENLAFAXINE HCL ER 150 MG CAP PO SCH (08:18)
[2023-03-02] MEDS: LORATADINE 10 MG TAB PO SCH (08:18)
--- NOTE | 2023-03-02 10:08 | P.PN ---
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 Patient was recently in the hospital for similar complaint and he was discharged after changing his Wilkinson catheter. Patient presents because of recurrent nausea vomiting, he cannot hold anything down during or encounters he started vomiting 2-3 times with dark brown vomitus. He denies abdominal pain or distention. He had bowel movement this morning which was loose but not watery. He has chronic indwelling Wilkinson catheter, he denies urinary symptoms A dyspnea. Patient at baseline and is bedbound and wheelchair bound, he is on liquids for history of stroke 2. He denies smoking alcohol or illicit drugs. No new weakness numbness. 03/01/2023 Patient still complain from nausea and occasional vomiting although he hasn't had vomiting yesterday. His nausea comes up even with postural changes when he sits up like And this morning and associated with very mild epigastric tenderness but no pain. He says that his bowel movement was little amounts yesterday due to loose but not watery Is currently on liquid diet and is located in June but request to be advanced to soft diet, discussed with the staff to advise that if he tolerates liquid diet. Wilkinson catheter in place Urine culture showing lisa, therefore no sonographic evidence of infection and Rocephin can be discontinued Patient is found this not working,, reglan can not be used because of the drug to drug interaction with his effexor and wellbutrin causing eps s.e , this will limits medication Used, he was placed on Phenergan when necessary small dose. Patient also currently on IV fluids and he is undergoing hemodialysis Discussed with staff 03/02/2023 Patient has improved today, no nausea vomiting, or only very mild symptoms. *Tolerating diet 25-50%, he is put on regular consistent carbohydrate diet. He has normal bowel movement but passing gas. No abdominal pain or tenderness. Liver ultrasound showed hepatic steatosis and small gallstones Blood pressure is stable. Possible discharge in 24-48 hours if he keeps improving Objective - Vital Signs Vital signs: Vital Signs Temp 97.9 F 03/02/23 07:04 Pulse 79 03/02/23 07:04 Resp 16 03/02/23 07:04 BP 131/85 03/02/23 07:04 Pulse Ox 99 03/02/23 07:04 FiO2 Intake & Output 03/01/23 03/02/23 03/02/23 18:59 06:59 18:59 Intake Total 880 Output Total 850 Balance 30 Intake: Oral 480 Hemodialysis 400 Output: Urine 150 Hemodialysis 700 Other: Voiding Method Indwelling Catheter Indwelling Catheter # Bowel Movements 1 - Exam GENERAL: The patient is alert and oriented x3, not in any acute distress. Well developed, well nourished. HEENT: Pupils are round and equally reacting to light. EOMI. No scleral icterus. No conjunctival pallor. Normocephalic, atraumatic. No pharyngeal erythema. No thyromegaly. CARDIOVASCULAR: S1 and S2 present. No murmurs, rubs, or gallops. PULMONARY: Chest is clear to auscultation, no wheezing , no crackles. ABDOMEN: Soft, nontender, nondistended, normoactive bowel sounds. No palpable organomegaly. MUSCULOSKELETAL: No joint swelling or deformity. EXTREMITIES: No cyanosis, clubbing, or pedal edema. -NEUROLOGICAL: Gross neurological examination did not reveal any focal deficits. Chronic left hemiparesis, more upper extremity SKIN: No rashes. no petechiae. - Labs CBC & Chem 7: 03/01/23 06:51 02/27/23 14:50 Assessment and Plan Assessment: Recurrent nausea vomiting and inability to eat with mild loose bowel movement no abdominal pain Possible acute or tract infection related to Wilkinson catheter, present on admission Diabetes mellitus Hypertension Hyperlipidemia History of osteoarthritis History of CVA with left hemiparesis, patient is bedbound and wheelchair bound at baseline History of gastroparesis and anatomic dysfunction History of vertigo History of sleep apnea History of glaucoma History of rotator cuff History of recurrent UTI Plan: Discontinue ceftriaxone, no evidence of UTI Continue with Zofran when necessary. Continue with Phenergan when necessary. Also rule out recommend for better control and in case he has also gastroparesis related to his diabetes mellitus Monitor hemoglobin. Nephrology consult for hemodialysis Labs and medication were reviewed.. Continue same treatment. Continue with symptomatic treatment. Resume home medication. Monitor lytes and vitals. DVT and GI prophylaxis. Further recommendations depends on the clinical course of the patient DVT prophylaxis: on ELIQUIIS GI Prophylaxis: Ppi Prognosis is guarded
[2023-03-02] MEDS: PANTOPRAZOLE 40 MG/10 ML VIAL IVP SCH (11:10)
--- NOTE | 2023-03-02 11:18 | P.PN ---
Subjective Patient is seen for follow-up for end-stage renal disease. Status post hemodialysis yesterday. Nausea is better and tolerated breakfast this morning. Blood pressure is much improved as well. Ultrasound shows possible gallstones. Objective - Vital Signs Vital signs: Vital Signs Temp 97.9 F 03/02/23 07:04 Pulse 79 03/02/23 07:04 Resp 16 03/02/23 07:04 BP 131/85 03/02/23 07:04 Pulse Ox 99 03/02/23 07:04 FiO2 Intake & Output 03/01/23 03/02/23 03/02/23 18:59 06:59 18:59 Intake Total 880 Output Total 850 Balance 30 Intake: Oral 480 Hemodialysis 400 Output: Urine 150 Hemodialysis 700 Other: Voiding Method Indwelling Catheter Indwelling Catheter Indwelling Catheter # Bowel Movements 1 - Exam Awake, comfortable, Examination of the heart S1 and S2 Examination of the lungs bilateral breath sounds are heard Abdomen is soft nontender Examination lower extremity shows no evidence of edema Patient has chronic indwelling Rosado catheter 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 End-stage renal disease maintained on hemodialysis on a Friday schedule 2. Nausea and vomiting most likely related to diabetic gastroparesis, ultrasound showed possible gallstones. Tolerated oral intake well today. 3. History of CVA up with some degree of left hemiparesis 4. Hypertension, uncontrolled secondary to severe nausea and vomiting Plan: Hemodialysis on 03/04/2023 Continue current antihypertensive treatment Symptomatic treatment of nausea
[2023-03-02 13:33] LABS: African American GFR (CKD) 9 (>60 ml/min/1.73 sqM); Anion Gap 19 mmol/L; Blood Urea Nitrogen 37 mg/dL (9-20); Calcium 9.5 mg/dL (8.4-10.2); Carbon Dioxide 22 mmol/L (22-30); Chloride 94 mmol/L (98-107); Glucose 117 mg/dL (74-99); Non-African American GFR(CKD) 8 (>60 ml/min/1.73 sqM); Potassium 4.3 mmol/L (3.5-5.1); Sodium 135 mmol/L (137-145)
[2023-03-02] MEDS: ACETAMINOPHEN TAB 325 MG TAB PO PRN ×2 (16:19→22:32)
[2023-03-02 20:50] LABS: Glucose,Whole Blood 103 mg/dL (70-110)
[2023-03-03 05:44] LABS: Glucose,Whole Blood 87 mg/dL (70-110)
[2023-03-03] MEDS: PANTOPRAZOLE 40 MG/10 ML VIAL IVP SCH (07:32)
[2023-03-03 07:46] VITALS: RESP 17
[2023-03-03] MEDS ORDERED: cloNIDine 0.2 MG/24HR PATCH TRANSDERM SCH (09:00)
[2023-03-03] MEDS: VENLAFAXINE HCL ER 150 MG CAP PO SCH (09:22)
[2023-03-03] MEDS: LORATADINE 10 MG TAB PO SCH (09:22)
[2023-03-03] MEDS: APIXABAN 5 MG TAB PO SCH (09:22)
[2023-03-03] MEDS: buPROPion XL 150 MG TAB.ER.24H PO SCH (09:22)
[2023-03-03] MEDS: METOPROLOL SUCCINATE (ER) 25 MG TAB.ER.24H PO SCH (09:22)
[2023-03-03] MEDS: LOSARTAN 50 MG TAB PO SCH (09:22)
[2023-03-03] MEDS: amLODIPine 10 MG TAB PO SCH (09:22)
--- NOTE | 2023-03-03 10:28 | P.PN ---
Subjective Patient is seen in follow-up for end-stage renal disease. He is maintained on hemodialysis on Friday schedule. No nausea vomiting today. No active complaints. Vital signs are stable. General: No acute distress. HEENT: Head exam is unremarkable. LUNGS: No audible rhonchi or wheezes. HEART: Rate and Rhythm are regular. ABDOMEN: Nontender. EXTREMITITES: No edema. Objective - Vital Signs Vital signs: Vital Signs Temp 97.6 F 03/03/23 06:51 Pulse 78 03/03/23 06:51 Resp 17 03/03/23 06:51 BP 135/82 03/03/23 06:51 Pulse Ox 99 03/03/23 06:51 FiO2 Intake & Output 03/02/23 03/03/23 03/03/23 18:59 06:59 18:59 Intake Total 720 Output Total 100 Balance 620 Intake: Oral 720 Output: Urine 100 Other: Voiding Method Indwelling Catheter Indwelling Catheter # Voids 2 # Bowel Movements 1 - Labs CBC & Chem 7: 03/01/23 06:51 03/02/23 12:11 Labs: Abnormal Lab Results - Last 24 Hours (Table) 03/02/23 Range/Units 12:11 Sodium 135 L (137-145) mmol/L Chloride 94 L (98-107) mmol/L BUN 37 H (9-20) mg/dL Creatinine 7.35 H* (0.66-1.25) mg/dL Glucose 117 H (74-99) mg/dL Assessment and Plan Plan: Assessment: 1. End-stage renal disease maintained on hemodialysis on Friday schedule. 2. Hypertension with chronic kidney disease. 3. Chronic kidney disease mineral bone disease maintained on Renvela. 4. History of CVA. 5. Nausea and vomiting possibly diabetic gastroparesis. Gallstones noted. Imp roved. Plan: Hemodialysis tomorrow. Patient is a maturing AV fistula for which he will follow up with vascular surgery outpatient.
[2023-03-03 11:29] LABS: Glucose,Whole Blood 145 mg/dL (70-110)
--- NOTE | 2023-03-03 13:47 | P.GSCN ---
History of Present Illness Consult date: 03/03/23 History of present illness: CHIEF COMPLAINT: Nausea and vomiting HISTORY OF PRESENT ILLNESS: This is a 52-year-old male who presented to the hospital with complaints of nausea and vomiting. It is been 2 days since his last episode of vomiting. He was able to tolerate breakfast. Patient reports that he does sometimes have vomiting and nausea prior to his dialysis. And he does have a history of end-stage renal disease with hemodialysis and history of diabetic gastroparesis. Patient does complain of some lower abdominal pain after eating when he needs to have a bowel movement. He reports no right upper quadrant abdominal pain. He tolerated breakfast this morning. No nausea today. He did have a liver ultrasound that has shown gallbladder is distended with possible sludge and small gravel stones near neck. Gallbladder wall not thickened. On Eliquis for history of Afib and CVA. Denies any prior abdominal surgeries. PAST MEDICAL HISTORY: CHF, CVA, diabetes Mellitus, Eye Disorder, GERD/Reflux, Hypertension, Musculoskeletal Disorder, Prostate Disorder, Renal Disease, Sleep Apnea/CPAP/BIPAP, gastroparesis, autonomic dysfunction, CKD/hemodialysis on /, BPH, hypotension at times, vertigo when first stands, ELISSA/does not wear his cpap, bilateral glaucoma/retinal problems , anemia, torn right rotator cuff., pain left arm,neck and back., pt has recurrent UTI, indwelling wilkinson catheter. PAST SURGICAL HISTORY: See below MEDICATIONS: See below ALLERGIES: See below SOCIAL HISTORY: No illicit drug use. REVIEW OF SYSTEMS: CONSTITUTIONAL: Denies fever or chills. HEENT: Denies blurred vision, vision changes, or eye pain. Denies hemoptysis CARDIOVASCULAR: Denies chest pain or pressure. RESPIRATORY: No shortness of breath. GASTROINTESTINAL: See HPI for pertinent findings HEMATOLOGIC: Denies bleeding disorders. GENITOURINARY: Denies any blood in urine or increased urinary frequency. SKIN: Denies pruitis. Denies rash. PHYSICAL EXAM: VITAL SIGNS: Reviewed GENERAL: Well-developed in no acute distress. ABDOMEN: Soft. Nondistended. Nontender. No RUQ tenderness NEUROLOGIC: Alert and oriented. Cranial nerves II through XII grossly intact. LABORATORY DATA: WBC 7.0 HGB 12.2 Plt 263 Na 135 K 4.3 Cr 7.35 Total bilirubin 0.6 AST 16 ALT 11 alk phos71 Lipase 64 IMAGING: Gallbladder ultrasound reports possible small gallstones present. Gallbladder distended with possible sludge and small gravel stones near neck/wall not t hickened. Hepatic steatosis. ASSESSMENT: 1. Distended gallbladder, possible Cholelithiasis and sludge noted on US 2. Nausea and vomiting improved 3. ESRD on dialysis 4. History of diabetes and gastroparesis PLAN: -Patient can be discharge from surgical standpoint with outpatient follow-up -Recommend low fat diet Physician Capital Project Engineer note has been reviewed by physician. Signing provider agrees with the documented findings, assessment, and plan of care. 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 History of Any Multi-Drug Resistant Organisms: MRSA Year Discovered:: 04/22/16 MDRO Source:: Right Hand Past Surgical History: Orthopedic Surgery Additional Past Surgical History / Comment(s): Current R chest hemodialysis catheter, PETRA, bilateral eye retinal scraping, cataracts., colonoscopies., RIGHT HAND SURGERY, cystectomy flank. Past Anesthesia/Blood Transfusion Reactions: No Reported Reaction, Motion Sickness Additional Past Anesthesia/Blood Transfusion Reaction / Comm: Pt has had blood transfusion without reaction. Past Psychological History: Anxiety, Bipolar, Depression Additional Psychological History / Comment(s): Resides with mother and has caregiver. Pt is W/C bound. Has wilkinson catheter and R chest hemodialysis cath. Smoking Status: Never smoker Past Alcohol Use History: None Reported Additional Past Alcohol Use History / Comment(s): Pt resides with his mother. He has a health worker named Arlen Friday thru FRIDAY.. She cleans, organizes medications and make sure he is taking his meds, helps with meals.. Pt can ambulate short distances with a walker. He has falls. Past Drug Use History: None Reported - Past Family History Mother Family Medical History: Diabetes Mellitus, Renal Disease Additional Family Medical History / Comment(s): Mother is alive at age 67yrs with history of diabetes (wears insulin pump).. Brother(s) Family Medical History: Diabetes Mellitus Additional Family Medical History / Comment(s): Patient has 2 brothers and one has history of diabetes and one has no major medical problems. Medications and Allergies Home Medications Medication Instructions Recorded Confirmed Type Omeprazole 20 mg PO BID 03/27/20 02/27/23 History Apixaban [Eliquis] 5 mg PO BID #0 01/31/22 02/27/23 Rx Fexofenadine HCl [Ana Allergy] 180 mg PO DAILY 06/16/22 02/27/23 History Methenamine Hippurate [Hiprex] 1 gm PO BID 06/16/22 02/27/23 History Venlafaxine HCl ER [Effexor XR] 150 mg PO DAILY 06/16/22 02/27/23 History cloNIDine 0.2 MG/24HR PATCH 1 patch TRANSDERM MO 06/16/22 02/27/23 History [Catapres-TTS] modafiniL [Provigil] 200 mg PO BID@0800,1200 06/16/22 02/27/23 History Aspirin 81 mg PO DAILY 09/23/22 02/27/23 History Ergocalciferol [Vitamin D2 (1250 1,250 mcg PO WE 09/23/22 02/27/23 History Mcg = 85432 Iu)] Losartan Potassium 50 mg PO DAILY 09/23/22 02/27/23 History Metoprolol Succinate (ER) [Toprol 25 mg PO DAILY 09/23/22 02/27/23 History XL] Sevelamer Carbonate 1,600 mg PO ACHS 09/23/22 02/27/23 History Torsemide [Demadex] 40 mg PO DAILY 09/23/22 02/27/23 History amLODIPine [Norvasc] 10 mg PO DAILY 09/23/22 02/27/23 History hydrALAZINE HCL [Apresoline] 50 mg PO TID PRN 09/23/22 02/27/23 History Buprenorphine [Butrans 7.5 MCG/HR] 1 patch TOPICAL WE 01/17/23 02/27/23 History Cetirizine HCl 10 mg PO DAILY 01/17/23 02/27/23 History Ondansetron Odt [Zofran ODT] 4 mg PO QID PRN 01/17/23 02/27/23 History Sevelamer [Renvela] 1,600 mg PO DAILY PRN 01/17/23 02/27/23 History Sodium Bicarbonate Tab 650 mg PO BID 01/17/23 02/27/23 History buPROPion XL [Wellbutrin XL] 150 mg PO DAILY 01/17/23 02/27/23 History Insulin Degludec [Tresiba 10 units SQ QAM 02/25/23 02/27/23 History Flextouch U-100 Pen] Tirzepatide [Mounjaro] 2.5 mg SQ Q7D 02/25/23 02/27/23 History Allergies Allergy/AdvReac Type Severity Reaction Status Date / Time lactose AdvReac Nausea & Verified 02/27/23 17:07 Vomiting & Diarrhea Surgical - Exam Vital Signs Temp Pulse Resp BP Pulse Ox 98 F 98 18 131/96 100 02/27/23 11:40 02/27/23 11:40 02/27/23 11:40 02/27/23 11:40 02/27/23 11:40 Results - Labs 03/01/23 06:51 03/02/23 12:11 Abnormal Lab Results - Last 24 Hours (Table) 03/02/23 03/03/23 Range/Units 12:11 11:27 Sodium 135 L (137-145) mmol/L Chloride 94 L (98-107) mmol/L BUN 37 H (9-20) mg/dL Creatinine 7.35 H* (0.66-1.25) mg/dL Glucose 117 H (74-99) mg/dL POC Glucose (mg/dL) 145 H (70-110) mg/dL Diabetes panel 03/02/23 Range/Units 12:11 Sodium 135 L (137-145) mmol/L Potassium 4.3 (3.5-5.1) mmol/L Chloride 94 L (98-107) mmol/L Carbon Dioxide 22 (22-30) mmol/L BUN 37 H (9-20) mg/dL Creatinine 7.35 H* (0.66-1.25) mg/dL Glucose 117 H (74-99) mg/dL Calcium 9.5 (8.4-10.2) mg/dL Calcium panel 03/02/23 Range/Units 12:11 Calcium 9.5 (8.4-10.2) mg/dL Pituitary panel 03/02/23 Range/Units 12:11 Sodium 135 L (137-145) mmol/L Potassium 4.3 (3.5-5.1) mmol/L Chloride 94 L (98-107) mmol/L Carbon Dioxide 22 (22-30) mmol/L BUN 37 H (9-20) mg/dL Creatinine 7.35 H* (0.66-1.25) mg/dL Glucose 117 H (74-99) mg/dL Calcium 9.5 (8.4-10.2) mg/dL Adrenal panel 03/02/23 Range/Units 12:11 Sodium 135 L (137-145) mmol/L Potassium 4.3 (3.5-5.1) mmol/L Chloride 94 L (98-107) mmol/L Carbon Dioxide 22 (22-30) mmol/L BUN 37 H (9-20) mg/dL Creatinine 7.35 H* (0.66-1.25) mg/dL Glucose 117 H (74-99) mg/dL Calcium 9.5 (8.4-10.2) mg/dL
[2023-03-03 14:23] VITALS: BP 111/78; PULSE 94; TEMP 97.8
[2023-03-03 16:27] LABS: Glucose,Whole Blood 141 mg/dL (70-110)
--- NOTE | 2023-03-03 21:34 | P.DS ---
Providers Date of admission: 02/27/23 16:03 Attending physician: Domenica Morales Consults: 02/27/23 16:23 Consult Physician Routine Consulting Provider: Julianna Barton Consult Reason/Comments: Dialysis/ESRD Do you want consulting provider notified?: Yes 03/03/23 11:38 Consult Physician Urgent Consulting Provider: Slade Abreu Consult Reason/Comments: gall stone with nausea and some abd pain Do you want consulting provider notified?: Yes Primary care physician: Justine Guillen Hospital Course: Diagnoses: Recurrent nausea vomiting and inability to eat with mild loose bowel movement no abdominal pain. thought to be secondary to gastroparesis versus gallstone disease although felt less likely asymptomatic bacteruria Diabetes mellitus Hypertension Hyperlipidemia History of osteoarthritis History of CVA with left hemiparesis, patient is bedbound and wheelchair bound at baseline History of gastroparesis and anatomic dysfunction History of vertigo History of sleep apnea History of glaucoma History of rotator cuff History of recurrent UTI Hospital course: This is a pleasant 52 years old male with past medical history of Heart Failure, CVA/TIA, Diabetes Mellitus, GERD/Reflux, Hypertension,ESRD ON HD, Sleep Apnea/CPAP/BIPAP,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 Patient was recently in the hospital for similar complaint and he was discharged after changing his Wilkinson catheter. Patient presents because of recurrent nausea vomiting, he cannot hold anything down during or encounters he started vomiting 2-3 times with dark brown vomitus. He denies abdominal pain or distention. He had bowel movement this morning which was loose but not watery. He has chronic indwelling Wilkinson catheter, he denies urinary symptoms . Urine culture came back negative for pathologic bacteria, patient felt to have asymptomatic bacteriuria rather and UTI and antibiotic stopped. Patient with antiacids Protonix and symptomatically with nausea medication and bowel rest with diet advanced gradually, patient showed interval improvement Since yesterday he started improving and today he was able to eat his breakfast with good appetite with no nausea vomiting, no abdominal pain and diarrhea stopped he has normal bowel movements since that 2 days ago. Patient denies any other new symptoms. And he wants to go home today. Ultrasound showed distended gallbladder with no evidence of cholecystitis, he has gallstones versus sludge, surgery team. Her for discharge for outpatient follow-up and he agrees Patient was cleared by all consultants including control systems specialist, general surgeon Problems and management plan were discussed with the patient and he verbalized understanding and acceptance Patient was found stable and can be discharged home in guarded prognosis however he needs follow-up as an outpatient. Patient was instructed to follow up with PCP Dr. Guillen within one week and patient agrees Patient instructed to follow up with his control systems specialist Dr. Nevarez in one week and he agrees Patient was instructed also to follow up with the general surgeon in one week after discharge and he agrees to call and make his own appointment Physical exam Gen: patient is a AAOx3, no distress CVS: S1-S2, RRR, no murmur Lungs: B/L CTA, no wheezing Abdomen: soft, no distention, no tenderness, positive bowel sounds Extremity: no leg edema or induration Time spent more than 35 minutes Patient Condition at Discharge: Stable Plan - Discharge Summary New Discharge Prescriptions: Continue Omeprazole 20 mg PO BID amLODIPine [Norvasc] 10 mg PO DAILY Aspirin 81 mg PO DAILY Sevelamer [Renvela] 1,600 mg PO DAILY PRN PRN Reason: WITH A SNACK Insulin Degludec [Tresiba Flextouch U-100 Pen] 10 units SQ QAM Apixaban [Eliquis] 5 mg PO BID #0 Venlafaxine HCl ER [Effexor XR] 150 mg PO DAILY modafiniL [Provigil] 200 mg PO BID@0800,1200 cloNIDine 0.2 MG/24HR PATCH [Catapres-TTS] 1 patch TRANSDERM MO Fexofenadine HCl [Ana Allergy] 180 mg PO DAILY Ergocalciferol [Vitamin D2 (1250 Mcg = 96202 Iu)] 1,250 mcg PO WE Sevelamer Carbonate 1,600 mg PO ACHS hydrALAZINE HCL [Apresoline] 50 mg PO TID PRN PRN Reason: systolic B/P >140 Metoprolol Succinate (ER) [Toprol XL] 25 mg PO DAILY Losartan Potassium 50 mg PO DAILY buPROPion XL [Wellbutrin XL] 150 mg PO DAILY Cetirizine HCl 10 mg PO DAILY Ondansetron Odt [Zofran ODT] 4 mg PO QID PRN PRN Reason: Nausea Tirzepatide [Mounjaro] 2.5 mg SQ Q7D No Action Methenamine Hippurate [Hiprex] 1 gm PO BID Buprenorphine [Butrans 7.5 MCG/HR] 1 patch TOPICAL WE Sodium Bicarbonate Tab 650 mg PO BID Torsemide [Demadex] 40 mg PO DAILY Discharge Medication List Omeprazole 20 mg PO BID 03/27/20 [History] Apixaban [Eliquis] 5 mg PO BID #0 01/31/22 [Rx] Fexofenadine HCl [Ana Allergy] 180 mg PO DAILY 06/16/22 [History] Methenamine Hippurate [Hiprex] 1 gm PO BID 06/16/22 [History] Venlafaxine HCl ER [Effexor XR] 150 mg PO DAILY 06/16/22 [History] cloNIDine 0.2 MG/24HR PATCH [Catapres-TTS] 1 patch TRANSDERM MO 06/16/22 [History] modafiniL [Provigil] 200 mg PO BID@0800,1200 06/16/22 [History] Aspirin 81 mg PO DAILY 09/23/22 [History] Ergocalciferol [Vitamin D2 (1250 Mcg = 41138 Iu)] 1,250 mcg PO WE 09/23/22 [History] Losartan Potassium 50 mg PO DAILY 09/23/22 [History] Metoprolol Succinate (ER) [Toprol XL] 25 mg PO DAILY 09/23/22 [History] Sevelamer Carbonate 1,600 mg PO ACHS 09/23/22 [History] Torsemide [Demadex] 40 mg PO DAILY 09/23/22 [History] amLODIPine [Norvasc] 10 mg PO DAILY 09/23/22 [History] hydrALAZINE HCL [Apresoline] 50 mg PO TID PRN 09/23/22 [History] Buprenorphine [Butrans 7.5 MCG/HR] 1 patch TOPICAL WE 01/17/23 [History] Cetirizine HCl 10 mg PO DAILY 01/17/23 [History] Ondansetron Odt [Zofran ODT] 4 mg PO QID PRN 01/17/23 [History] Sevelamer [Renvela] 1,600 mg PO DAILY PRN 01/17/23 [History] Sodium Bicarbonate Tab 650 mg PO BID 01/17/23 [History] buPROPion XL [Wellbutrin XL] 150 mg PO DAILY 01/17/23 [History] Insulin Degludec [Tresiba Flextouch U-100 Pen] 10 units SQ QAM 02/25/23 [History] Tirzepatide [Mounjaro] 2.5 mg SQ Q7D 02/25/23 [History] Follow up Appointment(s)/Referral(s): [facility], [NON-STAFF] - 1-2 Days Justine Guillen MD [Primary Care Provider] - 1-2 days (Office closed at time of discharge. Please call tomorrow 03/04/23 to make follow up appt.) Chela Wilkinson DO [STAFF PHYSICIAN] - 1 Week (vascular surgeon to check on your hemodialysis fistula Please call friday to schedule appointment ) Kellie Addison MD [STAFF PHYSICIAN] - 2 Weeks (GI Dr. for your vomiting and liver disease Please call Friday to schedule appointment ) Slade Abreu MD [STAFF PHYSICIAN] - 1 Week (for your gall bladder disease Please call Friday to schedule appointment ) Activity/Diet/Wound Care/Special Instructions: low fat diet activity is restricted till you see your doctor Discharge Disposition: HOME WITH HOME HEALTH SERVICES
== END 2023-03-03 16:43 | disposition home health service (06) | DRG 73 ==
LOC: EC 10:59 → OBSVTOIN 16:03 → 6NMEDSUR 16:03 → 4SSUR 16:51
PROVIDERS: ADMIT Internal Medicine; ATTEND Internal Medicine
PROC: 5A1D70Z Performance of Urinary Filtration, Intermittent, Less than 6 Hours Per Day (ICD-10-PCS; principal; 2023-02-28)
DX: E11.43 Type 2 diabetes mellitus with diabetic autonomic (poly)neuropathy (principal); N18.6 End stage renal disease; I13.2 Hypertensive heart and chronic kidney disease with heart failure and with stage 5 chronic kidney disease, or end stage renal disease; I69.354 Hemiplegia and hemiparesis following cerebral infarction affecting left non-dominant side; K80.10 Calculus of gallbladder with chronic cholecystitis without obstruction; N39.0 Urinary tract infection, site not specified; R11.2 Nausea with vomiting, unspecified; E11.65 Type 2 diabetes mellitus with hyperglycemia; K31.84 Gastroparesis; Z79.4 Long term (current) use of insulin; E78.5 Hyperlipidemia, unspecified; E11.22 Type 2 diabetes mellitus with diabetic chronic kidney disease; E11.41 Type 2 diabetes mellitus with diabetic mononeuropathy; F31.9 Bipolar disorder, unspecified; F41.9 Anxiety disorder, unspecified; I25.10 Atherosclerotic heart disease of native coronary artery without angina pectoris; E11.42 Type 2 diabetes mellitus with diabetic polyneuropathy; K82.8 Other specified diseases of gallbladder; N40.0 Benign prostatic hyperplasia without lower urinary tract symptoms; Z99.3 Dependence on wheelchair; Z99.2 Dependence on renal dialysis; Z87.440 Personal history of urinary (tract) infections; M89.8X9 Other specified disorders of bone, unspecified site; Z83.3 Family history of diabetes mellitus; Z79.899 Other long term (current) drug therapy; G47.33 Obstructive sleep apnea (adult) (pediatric); Z79.82 Long term (current) use of aspirin; Z79.01 Long term (current) use of anticoagulants; I48.91 Unspecified atrial fibrillation; K76.0 Fatty (change of) liver, not elsewhere classified; Z98.42 Cataract extraction status, left eye; Z98.41 Cataract extraction status, right eye; R29.6 Repeated falls; Z91.81 History of falling; Z86.14 Personal history of Methicillin resistant Staphylococcus aureus infection; Z88.8 Allergy status to other drugs, medicaments and biological substances
CPT/HCPCS: 36415; 74018; 76705; 80048; 80053; 81001; 82009; 82150; 82803; 83036; 83690; 84145; 85025; 86706; 87086; 87340; 90935; 96374; 99285